=== PATIENT | female | born 1955 | race Caucasian/White ===

== ENCOUNTER → 2018-05-17 14:26 | Outpatient (CLI) | payer OTHER, SELFPAY ==
--- NOTE | 2018-05-17 14:31 | BI_ITS ---
MAMMOGRAPHY - BILATERAL SCREENING REASON FOR EXAM: Female, 63 years old. Routine annual screening examination. PERTINENT HISTORY: Mother with breast cancer. TECHNIQUE: Digital bilateral breast roney (3D mammographic acquisition) in the CC and MLO projections. 2-D mediolateral oblique (MLO) and craniocaudad (CC) views of both breasts were obtained. CAD: Full Field Digital Mammography with Computer Added Detection was performed. COMPARISON: Comparison is made with prior outside examination dated 2016. FINDINGS: Breast Composition: The breasts are almost entirely fatty. There are no dominant masses or suspicious calcifications. No other significant abnormalities are identified. There has been no significant change since the prior study. BI/SCREENING MAMM (CAD), BILAT IMPRESSION: Stable bilateral screening mammogram. Yearly follow-up mammogram recommended. (A) ASSESSMENT CATEGORY: BIRADS Category 1: Negative. A letter regarding these results will be sent to the patient by the facility within 30 days. Approximately 10% of breast cancers are not detected by mammography. A normal mammogram should not delay biopsy of a clinically suspicious abnormality. [id number] Electronically Signed: Eleazar Owens, at 9:11 EST , Service support ,
== END ==
PROVIDERS: Family Provider Internal Medicine; PCP Internal Medicine; Referring Provider Nurse Practitioner Women's Health; Visit Provider Nurse Practitioner Women's Health
DX: Z12.31 Encounter for screening mammogram for malignant neoplasm of breast (principal); Z80.3 Family history of malignant neoplasm of breast
CPT/HCPCS: 77063; 77067

== ENCOUNTER 2018-06-04 11:53 | Inpatient (IN) | payer MEDICARE, SELFPAY ==
[2018-06-04] VITALS (14 sets, daily range): BP systolic 128–165; BP diastolic 57–75; PULSE 51–74; RESP 14–54; TEMP 36.3–37.6; O2SAT 83–100; BMI 51.5; BMI 51.6
--- NOTE | 2018-06-04 11:59 | EKG12_ITS ---
Test Reason : SOB Blood Pressure : / mmHG Vent. Rate : 054 BPM Atrial Rate : 054 BPM P-R Int : 144 ms QRS Dur : 114 ms QT Int : 480 ms P-R-T Axes : -14 034 053 degrees QTc Int : 455 ms Sinus bradycardia Incomplete right bundle branch block Nonspecific ST and T wave abnormality Abnormal ECG Confirmed by KIRK FALK, JEREMY ([id number]), multimedia editor SHERRY ROGER ([id number]) on 06/05/2018 8:22:12 AM Referred By: LEXIE Confirmed By:JEREMY BRADLEY MD
--- NOTE | 2018-06-04 12:01 | ED.VIS.GEN ---
History of Present Illness Chief Complaint: Shortness of Breath Detail of Chief Complaint: Gradually worsening Informant: Patient, Significant Other Onset: Month(s) Context: Gradual Onset Timing: Continuous Quality: Shortness of breath at rest and increased shortness of breath with activity Location: Not applicable Current Severity: Mild Maximum Severity: Severe Worsened by: Exertion Relieved by: Oxygen Associated Symptoms: Nasal congestion and cough Narrative: Patient is a 63-year-old woman who presents with increased shortness of breath over the past 2-3 months. She states the shortness of breath has gotten worse over the past 1-2 weeks. He does report mild nasal congestion and cough which is essentially nonproductive. She denies documented fever. She states she feels warm at times. She denies headache, visual, ocular auditory symptoms. She denies chest pain. She denies orthopnea PND. She states she is compliant with her CPAP machine at night. She denies GI symptoms. She denies leg pain or swelling. She has no history of PE or DVT and has no risk factors. She went to the urgent care and was sent to the emergency department because her pulse ox was in the 70s on room air. Patient refused ambulance transport. - Past Medical History (1) Obstructive sleep apnea Status: Chronic (2) Controlled diabetes mellitus type II without complication Status: Chronic (3) Hypertension Status: Chronic (4) Obesity Status: Chronic (5) Tobacco use disorder Status: Chronic Past Medical History - Allergies and Home Meds Allergies/Adverse Reactions: Allergies haloperidol [From Haldol] Allergy (Verified 06/04/18 11:53) Rash haloperidol lactate [From Haldol] Allergy (Verified 06/04/18 11:53) Rash Primary Care Physician: Toby Aleman MD [Primary Care Provider] - Prior records reviewed: Yes Surgical History: noncontributory Lives: Spouse/ Significant Other Smoking Status: Former smoker Alcohol: None Review of Systems General: Reports: Fever, Subjective, Sweats. Denies: Chills, Malaise Eyes: Denies: Visual changes - bilaterally, Blurred Vision - bilaterally, Diplopia ENT: Denies: Bilateral ear pain, Rhinorrhea, Sore throat Cardiovascular: Denies: Chest pain, Palpitations Respiratory: Reports: Dyspnea, Cough, Sputum - Scant production, Dyspnea on exertion, Orthopnea. Denies: Paroxysmal nocturnal dyspnea Gastrointestinal: Denies: Abdominal pain, Nausea, Vomiting, Diarrhea, Melena, Hematochezia Genitourinary: Denies: Dysuria, Hematuria, Frequency Musculoskeletal: Denies: Myalgias, Arthralgias Skin: Denies: Rash, Wounds Neurological: Reports: Headache. Denies: Weakness, Parasthesia Endocrine: Denies: Polyuria, Polydipsia Allergy: Denies: Uticaria, Swelling of the mouth Physical Exam Vital Signs/Narrative: Vital Signs Temp BP Pulse Ox 06/04/18 11:54 99.6 F H 165/57 H 90 General: Well nourished, Well developed, Obese, No Acute Distress Head: Normocephalic, Atraumatic Eyes: Perrl, EOMI. Negative for: Pale conjunctiva, Scleral icterus ENT: Moist mucous membranes, No rhinorrhea, TM's clear Neck: Supple, Nontender, No lymphadenopathy, No JVD Cardiovascular: Regular rate, Regular rhythm, No murmurs, Normal S1, Normal S2, - - Heart tones are distant secondary to body habitus Respiratory: CTA bilaterally, Chest nontender, Diminished - Distant breath sounds suspect secondary to body habitus. Patient is tachypnic. Abdomen: Soft, Nontender, Nondistended, Normal bowel sounds, No masses Rectal: Deferred Back: Nontender, Normal Inspection Extremities: Nontender, Edema - Plus minus pitting. Negative for: Calf Tenderness Skin: Normal color, No rash Neurological: Alert, Oriented x3, Cranial nerves II-XII grossly intact, Normal Strength, Normal Sensation Psychological: Normal affect, Normal Mood Diagnostic/Tx/Re-eval Chest X-Ray - ED: 2 View, Normal, Heart, Bony Structures, - - Bilateral interstitial changes noted uncertain whether this represents a viral/atypical pneumonia versus CHF. Impressions Chest X-Ray 06/04/18 12:20 IMPRESSION: Pulmonary edema or bilateral pneumonia. Electronically Signed: Karena Carine, at 12:38 EDT Tel , Service support , 06/04/18 12:20 Chest PA and Lateral [RAD] Stat 06/04/18 13:06 CT Chest [Chest without Contrast] [CT] Stat Laboratory Results 06/04/18 06/04/18 06/04/18 12:05 12:05 12:05 WBC 10.8 RBC 3.15 L Hgb 9.8 L Hct 32.0 L MCV 101.6 H MCH 31.1 MCHC 30.6 L RDW 15.1 H RDW Differential 55.3 H Plt Count 284 MPV 9.0 Immature Gran % (Auto) 0.200 Neut % (Auto) 77.7 H Lymph % (Auto) 11.9 L [place] % (Auto) 6.9 Eos % (Auto) 2.7 Baso % (Auto) 0.6 Absolute Neuts (auto) 8.4 H Absolute Lymphs (auto) 1.29 Total Counted Not Reportable Specimen Type Sample Site pH Bicarbonate Actual POC Total CO2 Base Excess O2 Saturation ABG pCO2 ABG pO2 O2 Delivery Device Liter Flow Blood Gas Notified Whom Blood Gas Notified Time Sodium 139 Potassium 5.0 Chloride 109 H Carbon Dioxide 22.0 Anion Gap 8 BUN 34 H Creatinine 2.11 H Estim Creat Clear Calc 24.24 Est GFR (MDRD) Af Amer 30 L Est GFR (MDRD) Non-Af 25 L BUN/Creatinine Ratio 16.1 Glucose 137 H Lactic Acid 2.1 H Calcium 8.7 Troponin I < 0.015 06/04/18 12:23 WBC RBC Hgb Hct MCV MCH MCHC RDW RDW Differential Plt Count MPV Immature Gran % (Auto) Neut % (Auto) Lymph % (Auto) [place] % (Auto) Eos % (Auto) Baso % (Auto) Absolute Neuts (auto) Absolute Lymphs (auto) Total Counted Specimen Type ART Sample Site L Radial pH 7.33 L Bicarbonate Actual 18.8 L POC Total CO2 20 Base Excess -7 L O2 Saturation 92 L ABG pCO2 36.0 ABG pO2 67 L O2 Delivery Device Nasal Can Liter Flow 3.0 Blood Gas Notified Whom ED MD Blood Gas Notified Time 1222 Sodium Potassium Chloride Carbon Dioxide Anion Gap BUN Creatinine Estim Creat Clear Calc Est GFR (MDRD) Af Amer Est GFR (MDRD) Non-Af BUN/Creatinine Ratio Glucose Lactic Acid Calcium Troponin I CT reveals bilateral multilobar pneumonia. Blood cultures were ordered since lactate is elevated 2.1. Patient was started on Rocephin and azithromycin. - Rhythm Strip Rhythm Strip: Sinus Rhythm Rate: 59 Ectopy: None - EKG Initial EKG Interpretation: Sinus Bradycardia - Ventricular rate 54 with an incomplete right bundle branch block and nonspecific ST-T wave changes. QRS duration is 114 ms. MA interval is normal and QT interval is slightly prolonged. - Medical Decision Making Need to evaluate cardiac, pulmonary cause for 2-3 months of dyspnea. Exacerbation may be secondary to recent upper respiratory infection. Chest x-ray was obtained to evaluate for infiltrate. EKG to evaluate for ischemia. CBC to assess for white count and evaluate for anemia. Electric panel was obtained to assess CO2, anion gap and renal function. With symptoms for months doubt pulmonary embolus. Since she is hypoxic and has history of obstructive sleep apnea requiring 4-5 L to maintain 90% saturation and ABG was obtained to assess CO2 and acid base status. Reviewed laboratory tests and radiology interpretation of x-ray. Will obtain CT of the chest without contrast to determine if this represents pneumonia versus CHF. Patient will require admission. And, suspect lactic acidosis is secondary to hypoxia. If CT reveals pneumonia will obtain blood cultures and treat with IV antibiotics, otherwise, will treat for CHF. - Critical Care Time Critical care time (excluding procedures): 30-74 minutes, Discussing w/Patient &/or Family/[employer] Protection Maintainer, Discussing w/Consultants, Arranging Admission or Transfer - 32 minutes ED Disposition - Plan for ED Patient: Disposition: [facility] Care [facility] Diagnosis: Respiratory failure with hypoxia, Severe sepsis, Bilateral multilobar pneumonia, Controlled diabetes mellitus type II without complication, Obstructive sleep apnea, Hypertension, Obesity, Tobacco use disorder Referrals: Toby Aleman MD [Primary Care Provider] -
--- NOTE | 2018-06-04 12:05 | ED.DCSUM_ITS ---
History of Present Illness Chief Complaint: Shortness of Breath Detail of Chief Complaint: Gradually worsening Informant: Patient, Significant Other Onset: Month(s) Context: Gradual Onset Timing: Continuous Quality: Shortness of breath at rest and increased shortness of breath with activity Location: Not applicable Current Severity: Mild Maximum Severity: Severe Worsened by: Exertion Relieved by: Oxygen Associated Symptoms: Nasal congestion and cough Narrative: Patient is a 63-year-old woman who presents with increased shortness of breath over the past 2-3 months. She states the shortness of breath has gotten worse over the past 1-2 weeks. He does report mild nasal congestion and cough which is essentially nonproductive. She denies documented fever. She states she feels warm at times. She denies headache, visual, ocular auditory symptoms. She denies chest pain. She denies orthopnea PND. She states she is compliant with her CPAP machine at night. She denies GI symptoms. She denies leg pain or swelling. She has no history of PE or DVT and has no risk factors. She went to the urgent care and was sent to the emergency department because her pulse ox was in the 70s on room air. Patient refused ambulance transport. - Past Medical History (1) Obstructive sleep apnea Status: Chronic (2) Controlled diabetes mellitus type II without complication Status: Chronic (3) Hypertension Status: Chronic (4) Obesity Status: Chronic (5) Tobacco use disorder Status: Chronic Past Medical History - Allergies and Home Meds Allergies/Adverse Reactions: Allergies haloperidol [From Haldol] Allergy (Verified 06/04/18 11:53) Rash haloperidol lactate [From Haldol] Allergy (Verified 06/04/18 11:53) Rash Primary Care Physician: Toby Aleman MD [Primary Care Provider] - Prior records reviewed: Yes Surgical History: noncontributory Lives: Spouse/ Significant Other Smoking Status: Former smoker Alcohol: None Review of Systems General: Reports: Fever, Subjective, Sweats. Denies: Chills, Malaise Eyes: Denies: Visual changes - bilaterally, Blurred Vision - bilaterally, Diplopia ENT: Denies: Bilateral ear pain, Rhinorrhea, Sore throat Cardiovascular: Denies: Chest pain, Palpitations Respiratory: Reports: Dyspnea, Cough, Sputum - Scant production, Dyspnea on exertion, Orthopnea. Denies: Paroxysmal nocturnal dyspnea Gastrointestinal: Denies: Abdominal pain, Nausea, Vomiting, Diarrhea, Melena, Hematochezia Genitourinary: Denies: Dysuria, Hematuria, Frequency Musculoskeletal: Denies: Myalgias, Arthralgias Skin: Denies: Rash, Wounds Neurological: Reports: Headache. Denies: Weakness, Parasthesia Endocrine: Denies: Polyuria, Polydipsia Allergy: Denies: Uticaria, Swelling of the mouth Physical Exam Vital Signs/Narrative: Vital Signs Temp BP Pulse Ox 06/04/18 11:54 99.6 F H 165/57 H 90 General: Well nourished, Well developed, Obese, No Acute Distress Head: Normocephalic, Atraumatic Eyes: Perrl, EOMI. Negative for: Pale conjunctiva, Scleral icterus ENT: Moist mucous membranes, No rhinorrhea, TM's clear Neck: Supple, Nontender, No lymphadenopathy, No JVD Cardiovascular: Regular rate, Regular rhythm, No murmurs, Normal S1, Normal S2, - - Heart tones are distant secondary to body habitus Respiratory: CTA bilaterally, Chest nontender, Diminished - Distant breath sounds suspect secondary to body habitus. Patient is tachypnic. Abdomen: Soft, Nontender, Nondistended, Normal bowel sounds, No masses Rectal: Deferred Back: Nontender, Normal Inspection Extremities: Nontender, Edema - Plus minus pitting. Negative for: Calf Tenderness Skin: Normal color, No rash Neurological: Alert, Oriented x3, Cranial nerves II-XII grossly intact, Normal Strength, Normal Sensation Psychological: Normal affect, Normal Mood Diagnostic/Tx/Re-eval Chest X-Ray - ED: 2 View, Normal, Heart, Bony Structures, - - Bilateral interstitial changes noted uncertain whether this represents a viral/atypical pneumonia versus CHF. Impressions Chest X-Ray 06/04/18 12:20 IMPRESSION: Pulmonary edema or bilateral pneumonia. Electronically Signed: Karena Carine, at 12:38 EDT Tel , Service support , 06/04/18 12:20 Chest PA and Lateral [RAD] Stat 06/04/18 13:06 CT Chest [Chest without Contrast] [CT] Stat Laboratory Results 06/04/18 06/04/18 06/04/18 12:05 12:05 12:05 WBC 10.8 RBC 3.15 L Hgb 9.8 L Hct 32.0 L MCV 101.6 H MCH 31.1 MCHC 30.6 L RDW 15.1 H RDW Differential 55.3 H Plt Count 284 MPV 9.0 Immature Gran % (Auto) 0.200 Neut % (Auto) 77.7 H Lymph % (Auto) 11.9 L [place] % (Auto) 6.9 Eos % (Auto) 2.7 Baso % (Auto) 0.6 Absolute Neuts (auto) 8.4 H Absolute Lymphs (auto) 1.29 Total Counted Not Reportable Specimen Type Sample Site pH Bicarbonate Actual POC Total CO2 Base Excess O2 Saturation ABG pCO2 ABG pO2 O2 Delivery Device Liter Flow Blood Gas Notified Whom Blood Gas Notified Time Sodium 139 Potassium 5.0 Chloride 109 H Carbon Dioxide 22.0 Anion Gap 8 BUN 34 H Creatinine 2.11 H Estim Creat Clear Calc 24.24 Est GFR (MDRD) Af Amer 30 L Est GFR (MDRD) Non-Af 25 L BUN/Creatinine Ratio 16.1 Glucose 137 H Lactic Acid 2.1 H Calcium 8.7 Troponin I < 0.015 06/04/18 12:23 WBC RBC Hgb Hct MCV MCH MCHC RDW RDW Differential Plt Count MPV Immature Gran % (Auto) Neut % (Auto) Lymph % (Auto) [place] % (Auto) Eos % (Auto) Baso % (Auto) Absolute Neuts (auto) Absolute Lymphs (auto) Total Counted Specimen Type ART Sample Site L Radial pH 7.33 L Bicarbonate Actual 18.8 L POC Total CO2 20 Base Excess -7 L O2 Saturation 92 L ABG pCO2 36.0 ABG pO2 67 L O2 Delivery Device Nasal Can Liter Flow 3.0 Blood Gas Notified Whom ED MD Blood Gas Notified Time 1222 Sodium Potassium Chloride Carbon Dioxide Anion Gap BUN Creatinine Estim Creat Clear Calc Est GFR (MDRD) Af Amer Est GFR (MDRD) Non-Af BUN/Creatinine Ratio Glucose Lactic Acid Calcium Troponin I CT reveals bilateral multilobar pneumonia. Blood cultures were ordered since lactate is elevated 2.1. Patient was started on Rocephin and azithromycin. - Rhythm Strip Rhythm Strip: Sinus Rhythm Rate: 59 Ectopy: None - EKG Initial EKG Interpretation: Sinus Bradycardia - Ventricular rate 54 with an incomplete right bundle branch block and nonspecific ST-T wave changes. QRS duration is 114 ms. TX interval is normal and QT interval is slightly prolonged. - Medical Decision Making Need to evaluate cardiac, pulmonary cause for 2-3 months of dyspnea. Exacerbation may be secondary to recent upper respiratory infection. Chest x- ray was obtained to evaluate for infiltrate. EKG to evaluate for ischemia. CBC to assess for white count and evaluate for anemia. Electric panel was obtained to assess CO2, anion gap and renal function. With symptoms for months doubt pulmonary embolus. Since she is hypoxic and has history of obstructive sleep apnea requiring 4-5 L to maintain 90% saturation and ABG was obtained to assess CO2 and acid base status. Reviewed laboratory tests and radiology interpretation of x-ray. Will obtain CT of the chest without contrast to determine if this represents pneumonia versus CHF. Patient will require admission. And, suspect lactic acidosis is secondary to hypoxia. If CT reveals pneumonia will obtain blood cultures and treat with IV antibiotics, otherwise, will treat for CHF. - Critical Care Time Critical care time (excluding procedures): 30-74 minutes, Discussing w/Patient &/or Family/Rn Nicu, Discussing w/Consultants, Arranging Admission or Transfer - 32 minutes ED Disposition - Plan for ED Patient: Disposition: Acute Care [facility] Diagnosis: Respiratory failure with hypoxia, Severe sepsis, Bilateral multilobar pneumonia, Controlled diabetes mellitus type II without complication, Obstructive sleep apnea, Hypertension, Obesity, Tobacco use disorder Referrals: Toby Aleman MD [Primary Care Provider] -
--- NOTE | 2018-06-04 12:20 | RAD_ITS ---
STUDY: X-RAY CHEST REASON FOR EXAM: Female, 63 years old. Dyspnea TECHNIQUE: Frontal and lateral views of the chest. COMPARISON: None. FINDINGS: Increased interstitial markings in the perihilar region and lung bases suggesting bilateral pulmonary edema or bilateral pneumonia. There is no demonstrated pleural abnormality. Normal size heart. Normal mediastinum and carolyn. Normal visualized pulmonary arteries. Normal visualized aortic arch and descending thoracic aorta. Normal visualized thoracic spine. There is degenerative osteoarthritis of the bilateral shoulders. There is no demonstrated abnormality of the visualized soft tissue structures of the upper abdomen. RAD/Chest PA and Lateral IMPRESSION: Pulmonary edema or bilateral pneumonia. Electronically Signed: Karena Hawk, at 12:38 EDT Tel , Service support ,
[2018-06-04 12:30] LABS: Base Excess -7 mmol/L (-2 to +2); Bicarbonate 18.8 mmol/L (22-26); Blood Gas Specimen Type ART; O2 Delivery Device Nasal Can; PO2 67 mmHG (75-100); SITE L Radial; SO2 92 % (95-99); Time Given 1222; Total Carbon Dioxide 20 mmol/L; pH 7.33 (7.35-7.45)
[2018-06-04 12:30] LABS: Absolute Lymphocyte Count 1.29 X10^3/ul (0.83-4.51); Absolute Neutrophil Count 8.4 X10^3/uL (2.0-7.7); Basophil# 0.06 X10^3/uL; Basophil% 0.6 % (0-1); Eosinophil# 0.29 X10^3/uL; Eosinophils% 2.7 % (0-5); Hemoglobin 9.8 g/dl (12.0-15.0); Lymphocyte # 1.29 X10^3/ul (4.0); Lymphocyte % 11.9 % (19-41); Mean Corp Hgb Conc 30.6 g/gl (32-36); Mean Corpuscular Hgb 31.1 pg (27.0-32.0); Mean Corpuscular Volume 101.6 fL (81-99); Monocyte# 0.75 X10^3/uL; Monocyte% 6.9 % (0-10); Neutrophil # 8.39 X10^3/uL (2.7-7.7); Neutrophil % 77.7 % (47-70); Platelet Count 284 K/mm3 (150-450); RBC Distribution Width CV 15.1 % (11.6-14.6); RBC Distribution Width SD 55.3 fl (35.1-43.9); Red Blood Count 3.15 M/mm3 (4.2-5.4); White Blood Count 10.8 K/mm3 (4.4-11.0)
[2018-06-04 12:35] LABS: POSITIVE COUNT NO; POSITIVE DIFFERENTIAL NO; POSITIVE MORPHOLOGY NO
[2018-06-04 12:41] LABS: Anion Gap 8 (5-15); BUN 34 mg/dL (7-18); BUN/Creat Ratio 16.1 RATIO (10-20); Calcium,Total 8.7 mg/dL (8.5-10.1); Chloride 109 mmol/L (98-107); Creatinine, Serum 2.11 mg/dL (0.55-1.02); EST Glomerular Filtration Rate 25 mL/min (>60); Est Glom Filt Rate - Afr Amer 30 mL/min (>60); Estimated Creatinine Clearance 24.24 ml/min; Glucose 137 mg/dL (74-106); Sodium Level 139 mmol/L (136-145)
[2018-06-04 12:58] LABS: Lactic Acid 2.1 mmol/L (0.4-2.0)
--- NOTE | 2018-06-04 13:00 | ED.RN ---
LACTIC 2.[address] THE LAB. DR OWEN AWARE
--- NOTE | 2018-06-04 13:06 | CT_ITS ---
STUDY: CT CHEST WITHOUT CONTRAST REASON FOR EXAM: Female, 63 years old. Hypoxia RADIATION DOSAGE (If Supplied By Facility): CTDIvol = ( 20.72 ) mGy, DLP = ( 586.75 ) mGycm TECHNIQUE: Transaxial imaging was performed without the administration of intravenous contrast material. Individualized dose optimization techniques were used for this CT. COMPARISON: 02/05/2015 FINDINGS: Reticular interstitial opacities are seen in both lungs more prominent in lung bases are stable compared to study from 2014 suggesting chronic interstitial lung disease. There are superimposed patchy groundglass opacities in both lungs, most likely represent bilateral pneumonia. There is no demonstrated pleural abnormality. Normal heart and pericardium. There are multiple enlarged lymph nodes within the mediastinum, which are compatible with reactive lymph hyperplasia. Normal hilar regions. Normal unenhanced pulmonary arteries. Normal aorta arch and descending thoracic aorta. There are multi-level degenerative changes of the thoracic spine. There is no demonstrated abnormality of the visualized upper abdomen. CT/Chest without Contrast IMPRESSION: Chronic interstitial lung disease with superimposed bilateral patchy pneumonia. Electronically Signed: Karena Hawk, at 14:44 EDT Tel , Service support ,
[2018-06-04 13:42] LABS: BNP,B-Type NATRIURETIC PEPTIDE 213.5 pg/mL (0-100)
--- NOTE | 2018-06-04 14:48 | ED.RN ---
physician advised of BS @ 70 pt gived 2 orange juice drinks, per physician.
[2018-06-04 14:50] LABS: Bedside Glucose 70 mg/dL (70-110)
[2018-06-04] MEDS: Ceftriaxone 1 GM/50 ML BAG IV (15:17)
--- NOTE | 2018-06-04 16:10 | HP.PCM_ITS ---
<Nora Samuel - Last Filed: 06/04/18 16:25> Problem List (1) Obstructive sleep apnea Status: Chronic (2) Respiratory failure with hypoxia Status: Chronic (3) Severe sepsis Status: Acute (4) Tobacco use disorder Status: Resolved (5) Obesity Status: Chronic Qualifiers: Body mass index: BMI 50.0-59.9 (6) Hypertension Status: Chronic (7) Depression Status: Chronic (8) Controlled diabetes mellitus type II without complication Status: Chronic (9) Cocaine dependence, episodic Status: Resolved (10) Pulmonary fibrosis Status: Chronic History of Present Illness Date of Admission: 06/04/18 Chief Complaint: Worsening shortness of breath. The patient is a 63 year old F who presents emergency room due to worsening shortness of breath. Patient states she had a respiratory virus in the middle of April which initially caused her shortness of breath. However, the last 2 weeks she reports her shortness of breath is worse and she is struggling to do activities of daily living due to shortness of breath. She denies fever, ch ills. Intermittent productive cough. Denies chest pain. Denies noticeable swelling. She does report her weight on admission is 10 pounds greater than at her primary care physician 1 week ago. She has a past medical history of pulmonary fibrosis, obstructive sleep apnea and chronic hypoxic respiratory failure wearing supplemental oxygen at night only. She follows with Dr. Olivia, [facility] pulmonary medicine. Her other past medical history includes hypertension, hyperlipidemia, depression, GERD, type 2 diabetes mellitus, morbid obesity. She is a former smoker and reports she quit 8 years ago. Past Medical History Past Medical History (Chronic Problems): Chronic Problems Obstructive sleep apnea (Chronic) Respiratory failure with hypoxia (Chronic) Pulmonary fibrosis (Chronic) Obesity (Chronic) Hypertension (Chronic) Depression (Chronic) Controlled diabetes mellitus type II without complication (Chronic) Allergies haloperidol [From Haldol] Allergy (Verified 06/04/18 11:53) Rash haloperidol lactate [From Haldol] Allergy (Verified 06/04/18 11:53) Rash Home Medications: Ambulatory Orders Medication Instructions Recorded Citalopram [Celexa] 40 mg PO DAILY 02/05/15 Amlodipine Besylate [Norvasc] 10 mg PO DAILY 06/04/18 Atorvastatin Calcium [Lipitor] 40 mg PO QHS 06/04/18 Cyclopentolate HCl 2 ml OP QHS 06/04/18 Gabapentin [Neurontin] 300 mg PO BID 06/04/18 Insulin NPH Human Isophane 30 unit SQ BID 06/04/18 [Novolin N] Insulin Regular, Human [Novolin R] 30 unit SQ TIDCM 06/04/18 Losartan Potassium 100 mg PO DAILY 06/04/18 Montelukast [Singulair] 10 mg PO QHS 06/04/18 Nintedanib Esylate [Ofev] 150 mg PO BIDCM 06/04/18 Pantoprazole Sodium [Protonix] 20 mg PO DAILY 06/04/18 Prednisolone Acetate 10 ml OP DAILY 06/04/18 Surgical History: cholecystectomy, tonsillectomy Psychiatric History: Depression [employer] History: No pertinent [employer] history Lives: Alone Smoking Status: Former smoker Alcohol: None Drugs: None - *Family History Maternal History Items: Diabetes, Heart Disease Paternal History Items: - - from prostate cancer Review of Systems Constitutional: Reports: Weight Change - + 10 lbs. Denies: Chills, Fever HEENT: Denies: Head Aches, Sinus Congestion, Sinus Drainage, Sore Throat Cardiovascular: Denies: Chest Pain, Edema, Palpitations, Syncope Respiratory: Reports: Cough, Shortness of Breath, Sputum production Gastrointestinal: Denies: Abdominal Pain, Nausea, Vomiting Genitourinary: Denies: Dysuria Musculoskeletal: Denies: Joint Pain, Joint Tenderness Skin: Denies: Rash, Wounds Neurological: Denies: Numbness, Tingling, Focal weakness Psychiatric: Reports: Depression Hematologic/ Lymphatic: Denies: Easy Bruising, Easy Bleeding VTE Information - Inpt Only VTE Present on Admission: No VTE Mechan Device Prophylaxis: None VTE Pharm Prophylaxis ordered?: Yes Patient Problems: Active and Suspected Problems Severe sepsis (Acute) - Physical Exam General: Alert, Oriented x3, Cooperative, No apparent distress HEENT: Atraumatic, PERRLA, EOMI, Normocephalic Neck: Supple, No JVD, Negative Carotid Bruits Lungs: Clear to auscultation, Diminished Cardiovascular: Regular rate, Regular Rhythm, Normal S1, Normal S2, No murmurs Abdomen: Bowel Sounds Present, Soft, Non Tender, Non-Distended, Obese Extremities: No clubbing, No cyanosis, No edema, Capillary Refill Less than 3 Seconds Skin: No rashes, No breakdown Musculoskeletal: No Tenderness to Palpation of Joints or Extremities Neurological: Cranial nerves II-XII grossly intact, Neuro grossly intact Psych/Mental Status: Normal Affect, Appropriate Vital Signs Temp Pulse Resp BP Pulse Ox 98.8 F 51 L 18 131/75 H 100 06/04/18 15:17 06/04/18 15:17 06/04/18 15:17 06/04/18 15:17 06/04/18 15:17 Oxygen Flow Rate (L/min) 3 Oxygen Delivery Method Nasal Cannula Weight: 309 lb 15.519 oz Body Mass Index (BMI) 51.5 Finger Stick Blood Glucose 70 Laboratory Tests Past 24 Hrs 06/04/18 06/04/18 06/04/18 12:05 12:05 12:05 WBC 10.8 RBC 3.15 L Hgb 9.8 L Hct 32.0 L MCV 101.6 H MCH 31.1 MCHC 30.6 L RDW 15.1 H RDW Differential 55.3 H Plt Count 284 MPV 9.0 Immature Gran % (Auto) 0.200 Neut % (Auto) 77.7 H Lymph % (Auto) 11.9 L Sharp % (Auto) 6.9 Eos % (Auto) 2.7 Baso % (Auto) 0.6 Absolute Neuts (auto) 8.4 H Absolute Lymphs (auto) 1.29 Total Counted Not Reportable Specimen Type Sample Site pH Bicarbonate Actual POC Total CO2 Base Excess O2 Saturation ABG pCO2 ABG pO2 O2 Delivery Device Liter Flow Blood Gas Notified Whom Blood Gas Notified Time Sodium 139 Potassium 5.0 Chloride 109 H Carbon Dioxide 22.0 Anion Gap 8 BUN 34 H Creatinine 2.11 H Estim Creat Clear Calc 24.24 Est GFR (MDRD) Af Amer 30 L Est GFR (MDRD) Non-Af 25 L BUN/Creatinine Ratio 16.1 Glucose 137 H Lactic Acid 2.1 H Calcium 8.7 Troponin I < 0.015 B-Natriuretic Peptide 06/04/18 06/04/18 12:05 12:23 WBC RBC Hgb Hct MCV MCH MCHC RDW RDW Differential Plt Count MPV Immature Gran % (Auto) Neut % (Auto) Lymph % (Auto) Sharp % (Auto) Eos % (Auto) Baso % (Auto) Absolute Neuts (auto) Absolute Lymphs (auto) Total Counted Specimen Type ART Sample Site L Radial pH 7.33 L Bicarbonate Actual 18.8 L POC Total CO2 20 Base Excess -7 L O2 Saturation 92 L ABG pCO2 36.0 ABG pO2 67 L O2 Delivery Device Nasal Can Liter Flow 3.0 Blood Gas Notified Whom ED Blood Gas Notified Time 1222 Sodium Potassium Chloride Carbon Dioxide Anion Gap BUN Creatinine Estim Creat Clear Calc Est GFR (MDRD) Af Amer Est GFR (MDRD) Non-Af BUN/Creatinine Ratio Glucose Lactic Acid Calcium Troponin I B-Natriuretic Peptide 213.5 H POC Glucose 06/04/18 14:44 POC Glucose 70 Assessment/Plan All Active Problems Severe sepsis (Acute) Tobacco use disorder (Resolved) Cocaine dependence, episodic (Resolved) 1. Acute on chronic hypoxic respiratory failure secondary to bilateral community-acquired pneumonia and possible mild CHF-complicated by underlying pulmonary fibrosis and obstructive sleep apnea. Continue supplement oxygen to maintain O2 at or above 90%. Patient chronically wears oxygen at night. Continue BiPAP nightly. Wean oxygen as tolerated. Walking pulse ox prior to discharge. Follows with Dr. Olivia, [facility] pulmonary medicine. 2. Acute bilateral community acquired pneumonia-chest CT with chronic interstitial lung disease with superimposed bilateral patchy pneumonia. Afebrile. No leukocytosis. IV azithromycin and IV Rocephin. Albuterol and DuoNeb aerosols. Mucinex 12 mg p.o. twice daily. Urine for strep and Legionella. Supplemental oxygen as noted above. Send sputum for culture. 3. Possible mild CHF? Patient reports ongoing shortness of breath. Obtain echocardiogram. BNP mildly elevated at admission. 4. Chronic kidney disease, suspected stage III-appears at baseline. Trend BMP. 5. Hypertension-stable, continue home amlodipine, losartan regimen. 6. Hyperlipidemia-continue statin. 7. Depression-continue home citalopram regimen. 8. GERD-continue home PPI regimen. 9. Type 2 diabetes [id number] AC at bedtime. Continue home insulin regimen. Check hemoglobin A1c. 10. Morbid obesity-encouraged diet and lifestyle modifications. Nutrition consult. 11. Former smoker-quit 8 years ago. Encouraged continued cessation. DVT prophylaxis-Lovenox subcu This patient was seen by SAMIR Barnes under the supervision of Dr. Hart. <Yahir Hart F - Last Filed: 06/04/18 18:42> History of Present Illness The patient is a 63 year old F [] Past Medical History Allergies haloperidol [From Haldol] Allergy (Verified 06/04/18 11:53) Rash haloperidol lactate [From Haldol] Allergy (Verified 06/04/18 11:53) Rash - Physical Exam Vital Signs Temp Pulse Resp BP Pulse Ox 97.4 F L 51 L 16 151/62 H 93 06/04/18 16:30 06/04/18 16:30 06/04/18 16:30 06/04/18 16:30 06/04/18 16:30 Oxygen Flow Rate (L/min) 4 Oxygen Delivery Method Nasal Cannula Weight: 304 lb 3.806 oz Body Mass Index (BMI) 51.5 Finger Stick Blood Glucose 70 Intake and Output for Last 24 Hours 06/02/18 06/03/18 06/04/18 23:59 23:59 23:59 Intake Total 240 / 240 Balance 240 / 240 Laboratory Tests Past 24 Hrs 06/04/18 06/04/18 06/04/18 12:05 12:05 12:05 WBC 10.8 RBC 3.15 L Hgb 9.8 L Hct 32.0 L MCV 101.6 H MCH 31.1 MCHC 30.6 L RDW 15.1 H RDW Differential 55.3 H Plt Count 284 MPV 9.0 Immature Gran % (Auto) 0.200 Neut % (Auto) 77.7 H Lymph % (Auto) 11.9 L Sharp % (Auto) 6.9 Eos % (Auto) 2.7 Baso % (Auto) 0.6 Absolute Neuts (auto) 8.4 H Absolute Lymphs (auto) 1.29 Total Counted Not Reportable Specimen Type Sample Site pH Bicarbonate Actual POC Total CO2 Base Excess O2 Saturation ABG pCO2 ABG pO2 O2 Delivery Device Liter Flow Blood Gas Notified Whom Blood Gas Notified Time Sodium 139 Potassium 5.0 Chloride 109 H Carbon Dioxide 22.0 Anion Gap 8 BUN 34 H Creatinine 2.11 H Estim Creat Clear Calc 24.24 Est GFR (MDRD) Af Amer 30 L Est GFR (MDRD) Non-Af 25 L BUN/Creatinine Ratio 16.1 Glucose 137 H Hemoglobin A1c Lactic Acid 2.1 H Calcium 8.7 Troponin I < 0.015 B-Natriuretic Peptide 06/04/18 06/04/18 06/04/18 12:05 12:05 12:23 WBC RBC Hgb Hct MCV MCH MCHC RDW RDW Differential Plt Count MPV Immature Gran % (Auto) Neut % (Auto) Lymph % (Auto) Sharp % (Auto) Eos % (Auto) Baso % (Auto) Absolute Neuts (auto) Absolute Lymphs (auto) Total Counted Specimen Type ART Sample Site L Radial pH 7.33 L Bicarbonate Actual 18.8 L POC Total CO2 20 Base Excess -7 L O2 Saturation 92 L ABG pCO2 36.0 ABG pO2 67 L O2 Delivery Device Nasal Can Liter Flow 3.0 Blood Gas Notified Whom ED MD Blood Gas Notified Time 1222 Sodium Potassium Chloride Carbon Dioxide Anion Gap BUN Creatinine Estim Creat Clear Calc Est GFR (MDRD) Af Amer Est GFR (MDRD) Non-Af BUN/Creatinine Ratio Glucose Hemoglobin A1c Pending Lactic Acid Calcium Troponin I B-Natriuretic Peptide 213.5 H 06/04/18 16:28 WBC RBC Hgb Hct MCV MCH MCHC RDW RDW Differential Plt Count MPV Immature Gran % (Auto) Neut % (Auto) Lymph % (Auto) Sharp % (Auto) Eos % (Auto) Baso % (Auto) Absolute Neuts (auto) Absolute Lymphs (auto) Total Counted Specimen Type Sample Site pH Bicarbonate Actual POC Total CO2 Base Excess O2 Saturation ABG pCO2 ABG pO2 O2 Delivery Device Liter Flow Blood Gas Notified Whom Blood Gas Notified Time Sodium Potassium Chloride Carbon Dioxide Anion Gap BUN Creatinine Estim Creat Clear Calc Est GFR (MDRD) Af Amer Est GFR (MDRD) Non-Af BUN/Creatinine Ratio Glucose Hemoglobin A1c Lactic Acid 1.3 Calcium Troponin I B-Natriuretic Peptide POC Glucose 06/04/18 06/04/18 16:19 14:44 POC Glucose 157 H 70 Code Visit Addendum: Dr. Hart I personally examined the patient and reviewed the chart. I agree with the above . 63-year-old female with a history of pulmonary fibrosis and diabetes presenting with shortness of breath worsened over the last several weeks. She has difficulty with ambulation and has gained a significant amount of weight, though she is not edematous on exam. Her BNP was elevated however that is likely related to her renal function which does appear to be at baseline though we only have creatinine from 2015 that was 2.05 and she is currently 2.11 on admission. On her CT chest she was found to have bilateral pneumonia and therefore was started on azithromycin and Rocephin for community-acquired pneumonia likely secondary to. Given the fact that she has bilateral infiltrates also Legionella urine antigen was obtained. We will obtain an echo in the morning to evaluate for possible right-sided heart failure given her pulmonary fibrosis and her history of obstructive sleep apnea. Inpatient E&M: [id number] [facility] L3
[2018-06-04 16:15] LABS: Reflex Lactate? Y
--- NOTE | 2018-06-04 16:22 | ECHOD_ITS ---
Reason For Study: Dyspnea/SOB Procedure This was a 2D Doppler, Color Flow transthoracic echocardiogram. The study was technically difficult. Did not use Definity due to increased PAP. Exam performed portable in patient room. Left Ventricle Normal size and thickness. The estimated ejection fraction is 65 %. Normal diastology for age. Right Ventricle Moderately dilated right ventricle. Normal systolic function. Atria The left atrium is moderately enlarged. The right atrium is moderately enlarged. Normal atrial septum. Mitral Valve Mild diffuse mitral valve thickening. Trivial mitral valve insufficiency. Tricuspid Valve Normal tricuspid valve. Mild (1+) tricuspid valve insufficiency. Right ventricular systolic pressure estimated to be 56 mmHg. Moderate pulmonary hypertension. Aortic Valve Trisinus/trileaflet aortic valve. Mild diffuse aortic valve thickening. There is no aortic stenosis. Pulmonic Valve Normal pulmonic valve. Great Vessels Normal aortic root. Normal arch. Normal inferior vena cava. Inferior vena cava collapse with sniff. Pericardium/Pleural No pericardial effusion. MMode/2D Measurements & Calculations LVIDd: 6.0 cm IVSd: 1.1 cm Ao root diam: 3.0 cm LVIDs: 3.6 cm LVPWd: 1.1 cm RVDd: 4.9 cm FS: 40.2 % LAV(MOD-bp): 81.6 ml LA A4 area: 22.7 cm2 LA dimension(2D): 4.4 cm LAV(MOD-bp) Indexed: 34.5 ml/m2 LAV(MOD-sp2): 82.5 ml LAV(MOD-sp4): 73.2 ml RA A4 area: 23.3 cm2 Time Measurements MV dec time: 0.16 sec Doppler Measurements & Calculations MV E max rod: 125.3 cm/sec Lat Peak E' Rod: 5.4 cm/sec Med Peak E' Rod: 3.7 cm/sec MV A max rod: 118.5 cm/sec E/E' lat: 23.4 E/E' med: 33.5 MV E/A: 1.1 MV V2 max: 149.0 cm/sec MV P1/2t max rod: 149.0 cm/sec Ao V2 max: 185.2 cm/sec MV max P.9 mmHg MV P1/2t: 90.7 msec Ao max P.7 mmHg MV V2 mean: 70.5 cm/sec MV dec slope: 481.0 cm/sec2 Ao V2 mean: 138.7 cm/sec MV mean P.5 mmHg Ao mean P.3 mmHg MV V2 VTI: 58.1 cm MVA(P1/2t): 2.4 cm2 Ao V2 VTI: 43.9 cm LV V1 max: 114.9 cm/sec PA V2 max: 139.1 cm/sec TR max rod: 353.7 cm/sec LV V1 max P.3 mmHg TR max P.1 mmHg Interpretation Summary The estimated ejection fraction is 65 %. Moderately dilated right ventricle. The left atrium is moderately enlarged. The right atrium is moderately enlarged. Trivial mitral valve insufficiency. Right ventricular systolic pressure estimated to be 56 mmHg. Moderate pulmonary hypertension. Normal diastology for age. There is no comparison study available. Ordering Physician: SAMIR Barnes Referring Physician: Toby Aleman Performed By: Lyla Jensen RDCS, RVT
--- NOTE | 2018-06-04 16:24 | CASEMGMT ---
RN CM Assessment Introduced role of RN CM to patient and Mauricioienluis fernando Freeman at bedside. Patient is alert, oriented and able to participate in RN CM Assessment. Care providers, pharmacy, and demographics verified. Presentation: CC: Increased SOB, O2 Sat 70's at and sent to ER. PCP: Dr Toby Aleman Specialists: Pulm- Dr Luiz Olivia, Nephro- Dr Escalante- [place], [place] Preferred Pharmacy: [facility] Insurance: Medicare A Prescription Benefit: Yes LNOK: Padmini Jain LW/HPOA: No, States would like to s/w [employer] for information Living Arrangements: Lives with mauricioienluis fernando in a 2 story home with 2 steps to enter. Independent with ambulation and ADL's. Transportation: Patient drives, Padmini Freeman to transport on [place]. DME: CPAP- [facility], Glucometer, Nebulizer. Prefers Company on [facility], [place]- States Kilo has called her before but unsure what Company name is, states across from [employer]. (Per [employer]: Jose or Lars??) HHC: None SNF: None Goal: Home DC PLAN: Home with possible Home O2. SUZAN Daniel
[2018-06-04 16:46] LABS: Bedside Glucose 157 mg/dL (70-110)
[2018-06-04 16:59] LABS: Lactic Acid 1.3 mmol/L (0.4-2.0)
[2018-06-04] MEDS: Insulin Lispro 100 UNIT/ML INSULN.PEN SQ (17:12)
[2018-06-04] MEDS: Ipratropium/Albuterol Sulfate 3 ML AMPUL.NEB INHALATION (19:15)
[2018-06-04] MEDS: NINTEDANIB ESYLATE 150 MG CAPSULE PO (21:21)
[2018-06-04 22:00] LABS: Bedside Glucose 170 mg/dL (70-110)
[2018-06-04] MEDS: guaiFENesin 10 ML UDC (200MG/10ML) 15 ML PO (23:03)
[2018-06-04] MEDS: Rizatriptan Benzoate 10 MG Tablet PO (23:03)
[2018-06-04] MEDS: Atorvastatin Calcium 40 MG Tablet PO (23:04)
[2018-06-04] MEDS: Montelukast 10 MG Tablet PO (23:04)
[2018-06-04] MEDS: guaiFENesin 1,200 MG Tablet 1200 MG PO (23:04)
[2018-06-04] MEDS: Gabapentin 300 MG Capsule PO (23:04)
[2018-06-04] MEDS: Cyclopentolate 1% 2 ML Bottle 1 DRP LEFT EYE (23:06)
[2018-06-04] MEDS: Glycerin/Hypromellose/PEG400 15 ml Bottle 1 DRP RIGHT EYE (23:07)
[2018-06-04] MEDS: Insulin NPH Human 100 UNITS/ML PEN 30 UNITS SC (23:15)
[2018-06-05] VITALS (31 sets, daily range): BP systolic 111–168; BP diastolic 44–89; PULSE 50–69; RESP 12–32; TEMP 36.5–37.9; O2SAT 71–100
[2018-06-05] MEDS: 0.9% NaCl Peripheral Flush Adult/Peds IV ×5 (00:30→20:59)
[2018-06-05] MEDS: Ondansetron 4 MG/2 ML Vial IV (00:30)
[2018-06-05 00:41] LABS: Bedside Glucose 224 mg/dL (70-110)
[2018-06-05 05:59] LABS: Absolute Lymphocyte Count 0.84 X10^3/ul (0.83-4.51); Absolute Neutrophil Count 11.8 X10^3/uL (2.0-7.7); Basophil# 0.03 X10^3/uL; Basophil% 0.2 % (0-1); Eosinophil# 0.04 X10^3/uL; Eosinophils% 0.3 % (0-5); Hematocrit 30.6 % (37-47); Hemoglobin 9.1 g/dl (12.0-15.0); Lymphocyte # 0.84 X10^3/ul (4.0); Lymphocyte % 6.2 % (19-41); Mean Corp Hgb Conc 29.7 g/gl (32-36); Mean Corpuscular Hgb 31.3 pg (27.0-32.0); Mean Corpuscular Volume 105.2 fL (81-99); Mean Platelet Vol. 9.2 fl (6.2-12.0); Monocyte# 0.77 X10^3/uL; Monocyte% 5.7 % (0-10); Neutrophil # 11.84 X10^3/uL (2.7-7.7); Neutrophil % 87.5 % (47-70); Platelet Count 287 K/mm3 (150-450); RBC Distribution Width CV 14.7 % (11.6-14.6); RBC Distribution Width SD 54.9 fl (35.1-43.9); Red Blood Count 2.91 M/mm3 (4.2-5.4); White Blood Count 13.5 K/mm3 (4.4-11.0)
[2018-06-05] MEDS: Enoxaparin 30 MG/0.3 ML Syringe SC (06:09)
[2018-06-05 06:19] LABS: POSITIVE COUNT NO; POSITIVE DIFFERENTIAL NO; POSITIVE MORPHOLOGY NO
[2018-06-05 06:41] LABS: Anion Gap 6 (5-15); BUN 39 mg/dL (7-18); BUN/Creat Ratio 17.7 RATIO (10-20); Calcium,Total 8.1 mg/dL (8.5-10.1); Chloride 108 mmol/L (98-107); EST Glomerular Filtration Rate 24 mL/min (>60); Est Glom Filt Rate - Afr Amer 29 mL/min (>60); Estimated Creatinine Clearance 23.25 ml/min; Glucose 184 mg/dL (74-106); Potassium 5.8 mmol/L (3.5-5.1); Sodium Level 138 mmol/L (136-145)
[2018-06-05] MEDS: Ipratropium/Albuterol Sulfate 3 ML AMPUL.NEB INHALATION ×4 (06:47→19:16)
[2018-06-05 07:20] LABS: Bedside Glucose 180 mg/dL (70-110)
[2018-06-05 08:12] LABS: Hemoglobin A1c 6.1 % (4.2-6.3)
[2018-06-05 08:21] LABS: Allen Test POS; Base Excess -7 mmol/L (-2 to +2); Bicarbonate 20.1 mmol/L (22-26); Blood Gas Specimen Type ART; O2 Delivery Device NRB Mask; PO2 38 mmHG (75-100); SITE L Radial; SO2 62 % (95-99); Time Given 755; Total Carbon Dioxide 22 mmol/L; pH 7.24 (7.35-7.45)
--- NOTE | 2018-06-05 08:37 | CPS ---
Critical abg hand delivered to DR. Shelley. Results read back.
[2018-06-05] MEDS: Furosemide 20 MG/2 ML VIAL IV ×3 (09:19→20:53)
[2018-06-05] MEDS: prednisoLONE eye drops (5 mL) 1 DROP OPTH.BTL 2 DRP LEFT EYE (09:19)
[2018-06-05] MEDS: Glycerin/Hypromellose/PEG400 15 ml Bottle 1 DRP RIGHT EYE ×2 (09:21→20:58)
[2018-06-05 10:31] LABS: Bedside Glucose 179 mg/dL (70-110)
[2018-06-05 10:41] LABS: Allen Test POS; Base Excess -6 mmol/L (-2 to +2); Bicarbonate 20.1 mmol/L (22-26); Blood Gas Specimen Type ART; EPAP 10; FI02 100; PO2 102 mmHG (75-100); RR 12; SITE L Radial; SO2 97 % (95-99); Time Given 1010; Total Carbon Dioxide 21 mmol/L; pH 7.29 (7.35-7.45)
[2018-06-05] MEDS: Losartan Potassium 100 MG Tablet PO (11:24)
[2018-06-05] MEDS: amLODIPine 10 MG Tablet PO (11:24)
[2018-06-05] MEDS: Gabapentin 300 MG Capsule PO ×2 (11:24→20:55)
--- NOTE | 2018-06-05 12:29 | PN_ITS ---
Patient Problems: Active and Suspected Problems Severe sepsis (Acute) Subjective: Patient seen and examined. Patient placed on BiPAP this morning due to hypoxia. Tolerating BiPAP. Reports breathing improved. - Physical Exam General: Alert, Oriented x3, Cooperative HEENT: Atraumatic, PERRLA, EOMI, Normocephalic Neck: Supple, No JVD, Negative Carotid Bruits Lungs: Clear to auscultation, Diminished Cardiovascular: Regular rate, Regular Rhythm, Normal S1, Normal S2, No murmurs Abdomen: Bowel Sounds Present, Soft, Non Tender, Non-Distended, Obese Extremities: No clubbing, No cyanosis, No edema, Capillary Refill Less than 3 Seconds Skin: No rashes, No breakdown Musculoskeletal: No Tenderness to Palpation of Joints or Extremities Neurological: Cranial nerves II-XII grossly intact, Neuro grossly intact Psych/Mental Status: Normal Affect, Appropriate Vital Signs Temp Pulse Resp BP Pulse Ox 98.9 F 54 L 22 H 111/54 L 100 06/05/18 09:00 06/05/18 12:00 06/05/18 12:00 06/05/18 12:00 06/05/18 12:00 Oxygen Flow Rate (L/min) 15 Oxygen Delivery Method Bi-pap Weight: 304 lb 3.806 oz Body Mass Index (BMI) 51.5 Finger Stick Blood Glucose 70 Intake and Output for Last 24 Hours 06/03/18 06/04/18 06/05/18 23:59 23:59 23:59 Intake Total 240 / 240 854 / 854 Balance 240 / 240 854 / 854 Microbiology Past 72 Hours 06/05/18 06:20 Respiratory Panel (PCR) - Final Mucosa - Nasopharyngeal 06/05/18 04:54 Legionella Antigen - Final Urine, Clean Catch Laboratory Tests Past 24 Hrs 06/04/18 06/04/18 06/04/18 12:05 12:05 12:05 WBC 10.8 RBC 3.15 L Hgb 9.8 L Hct 32.0 L MCV 101.6 H MCH 31.1 MCHC 30.6 L RDW 15.1 H RDW Differential 55.3 H Plt Count 284 MPV 9.0 Immature Gran % (Auto) 0.200 Neut % (Auto) 77.7 H Lymph % (Auto) 11.9 L [place] % (Auto) 6.9 Eos % (Auto) 2.7 Baso % (Auto) 0.6 Absolute Neuts (auto) 8.4 H Absolute Lymphs (auto) 1.29 Total Counted Not Reportable Specimen Type Sample Site pH Bicarbonate Actual POC Total CO2 Base Excess O2 Saturation O2 % ABG pCO2 ABG pO2 Lazaro Test Respiration Rate O2 Delivery Device Liter Flow EPAP Blood Gas Notified Whom Blood Gas Notified Time Sodium 139 Potassium 5.0 Chloride 109 H Carbon Dioxide 22.0 Anion Gap 8 BUN 34 H Creatinine 2.11 H Estim Creat Clear Calc 24.24 Est GFR (MDRD) Af Amer 30 L Est GFR (MDRD) Non-Af 25 L BUN/Creatinine Ratio 16.1 Glucose 137 H Hemoglobin A1c Lactic Acid 2.1 H Calcium 8.7 Troponin I < 0.015 B-Natriuretic Peptide 06/04/18 06/04/18 06/04/18 12:05 12:23 16:28 WBC RBC Hgb Hct MCV MCH MCHC RDW RDW Differential Plt Count MPV Immature Gran % (Auto) Neut % (Auto) Lymph % (Auto) [place] % (Auto) Eos % (Auto) Baso % (Auto) Absolute Neuts (auto) Absolute Lymphs (auto) Total Counted Specimen Type ART Sample Site L Radial pH 7.33 L Bicarbonate Actual 18.8 L POC Total CO2 20 Base Excess -7 L O2 Saturation 92 L O2 % ABG pCO2 36.0 ABG pO2 67 L Lazaro Test Respiration Rate O2 Delivery Device Nasal Can Liter Flow 3.0 EPAP Blood Gas Notified Whom ED MD Blood Gas Notified Time 1222 Sodium Potassium Chloride Carbon Dioxide Anion Gap BUN Creatinine Estim Creat Clear Calc Est GFR (MDRD) Af Amer Est GFR (MDRD) Non-Af BUN/Creatinine Ratio Glucose Hemoglobin A1c Lactic Acid 1.3 Calcium Troponin I B-Natriuretic Peptide 213.5 H 06/05/18 06/05/18 06/05/18 05:20 05:20 05:20 WBC 13.5 H RBC 2.91 L Hgb 9.1 L Hct 30.6 L MCV 105.2 H MCH 31.3 MCHC 29.7 L RDW 14.7 H RDW Differential 54.9 H Plt Count 287 MPV 9.2 Immature Gran % (Auto) 0.100 Neut % (Auto) 87.5 H Lymph % (Auto) 6.2 L [place] % (Auto) 5.7 Eos % (Auto) 0.3 Baso % (Auto) 0.2 Absolute Neuts (auto) 11.8 H Absolute Lymphs (auto) 0.84 Total Counted Not Reportable Specimen Type Sample Site pH Bicarbonate Actual POC Total CO2 Base Excess O2 Saturation O2 % ABG pCO2 ABG pO2 Lazaro Test Respiration Rate O2 Delivery Device Liter Flow EPAP Blood Gas Notified Whom Blood Gas Notified Time Sodium 138 Potassium 5.8 H Chloride 108 H Carbon Dioxide 24.0 Anion Gap 6 BUN 39 H Creatinine 2.20 H Estim Creat Clear Calc 23.25 Est GFR (MDRD) Af Amer 29 L Est GFR (MDRD) Non-Af 24 L BUN/Creatinine Ratio 17.7 Glucose 184 H Hemoglobin A1c 6.1 Lactic Acid Calcium 8.1 L Troponin I B-Natriuretic Peptide 06/05/18 06/05/18 08:14 10:37 WBC RBC Hgb Hct MCV MCH MCHC RDW RDW Differential Plt Count MPV Immature Gran % (Auto) Neut % (Auto) Lymph % (Auto) [place] % (Auto) Eos % (Auto) Baso % (Auto) Absolute Neuts (auto) Absolute Lymphs (auto) Total Counted Specimen Type ART ART Sample Site L Radial L Radial pH 7.24 L 7.29 L Bicarbonate Actual 20.1 L 20.1 L POC Total CO2 22 21 Base Excess -7 L -6 L O2 Saturation 62 L 97 O2 % 100 ABG pCO2 47.0 H 42.0 ABG pO2 38 L* 102 H Lazaro Test POS POS Respiration Rate 12 O2 Delivery Device NRB Mask Bi / C PAP Liter Flow 15.0 EPAP 10 Blood Gas Notified Whom HOSP MD HOSP MD Blood Gas Notified Time 755 1010 Sodium Potassium Chloride Carbon Dioxide Anion Gap BUN Creatinine Estim Creat Clear Calc Est GFR (MDRD) Af Amer Est GFR (MDRD) Non-Af BUN/Creatinine Ratio Glucose Hemoglobin A1c Lactic Acid Calcium Troponin I B-Natriuretic Peptide POC Glucose 06/05/18 06/05/18 06/04/18 10:18 06:43 23:37 POC Glucose 179 H 180 H 224 H 06/04/18 06/04/18 06/04/18 21:18 16:19 14:44 POC Glucose 170 H 157 H 70 Medical Necessity - Tobacco Use Smoking Status: Former smoker Tobacco Use: Cigarettes Assessment/Plan All Active Problems Severe sepsis (Acute) Tobacco use disorder (Resolved) Cocaine dependence, episodic (Resolved) 1. Acute on chronic hypoxic respiratory failure secondary to bilateral community-acquired pneumonia and acute diastolic CHF-complicated by underlying pulmonary fibrosis, obstructive sleep apnea, and moderate pulmonary hypertension. Continue supplement oxygen to maintain O2 at or above 90%. Patient chronically wears oxygen at night. Continue BiPAP as tolerated and nightly. Wean oxygen as tolerated. Walking pulse ox prior to discharge. Follows with Dr. Olivia, [facility] pulmonary medicine. RVSP on echo 56 mmHg. 2. Acute bilateral community acquired pneumonia-chest CT with chronic interstitial lung disease with superimposed bilateral patchy pneumonia. Afe brile. No leukocytosis. IV azithromycin and IV Rocephin. Albuterol and DuoNeb aerosols. Mucinex 12 mg p.o. twice daily. Urine for strep and Legionella. Supplemental oxygen as noted above. Send sputum for culture. Respiratory panel negative. 3. Acute Diastolic CHF- BNP mildly elevated at admission. Echocardiogram shows an EF of 65%, RVSP estimated to be 56 mmHg. IV Lasix 20 mg every 8 hours. Strict I&O. Daily weight. 4. Chronic kidney disease, suspected stage III-appears at baseline. Trend BMP. 5. Hypertension-stable, continue home amlodipine, losartan regimen. 6. Hyperlipidemia-continue statin. 7. Depression-continue home citalopram regimen. 8. GERD-continue home PPI regimen. 9. Type 2 diabetes [id number] ACHS. SSI. Home insulin regimen on hold given hypoglycemia this morning and decreased oral intake with BiPAP. Hemoglobin A1c 6.1%. 10. Morbid obesity-encouraged diet and lifestyle modifications. Nutrition consult. 11. Former smoker-quit 8 years ago. Encouraged continued cessation. 12. Chronic macrocytic anemia-stable. DVT prophylaxis-Lovenox subcu This patient was seen by SAMIR Barnes under the supervision of Dr. Chavez.
--- NOTE | 2018-06-05 14:50 | CHAPLAIN ---
Type of Pastoral Visit _x__ Initial Visit ___ Follow-up Visit ___ On-call Visit ___ General Patient Visit ___ Spiritual Assessment ___ Family Conference ___ Bereavement ___ Rapid Response ___ Code Blue ___ Other (describe below) Pastoral Care Referral From _x__ Patient ___ Family ___ Nurse ___ Physician ___ Medical Assistant Prn ___ Memory Care Program Director ___ Other (describe below) Sacrament/Intervention _x__ Active listening ___ Anointing ___ Buddhism ___ Bereavement ___ Communion _x__ Renetta exploration ___ ___ Life review _x__ Prayer ___ Reconciliation ___ Sacrament of Sick _x__ Supportive presence ___ Wedding ___ Other (describe below) Pastoral Comments contacted scientology of patient per her request; pt would like further spiritual care support and follow up; pt requests prayer at this time
[2018-06-05 16:00] LABS: Bedside Glucose 128 mg/dL (70-110)
[2018-06-05] MEDS: guaiFENesin 1,200 MG Tablet 1200 MG PO (20:53)
[2018-06-05] MEDS: Atorvastatin Calcium 40 MG Tablet PO (20:54)
[2018-06-05] MEDS: Montelukast 10 MG Tablet PO (20:55)
[2018-06-05] MEDS: Cyclopentolate 1% 2 ML Bottle 1 DRP LEFT EYE (20:57)
[2018-06-05 21:56] LABS: Bedside Glucose 158 mg/dL (70-110)
[2018-06-05] MEDS: guaiFENesin 10 ML UDC (200MG/10ML) 15 ML PO (22:56)
[2018-06-06] VITALS (45 sets, daily range): BP systolic 83–179; BP diastolic 42–155; PULSE 40–77; RESP 12–35; TEMP 35.2–39.2; O2SAT 85–98
[2018-06-06] MEDS: Acetaminophen 325 MG Tablet 650 MG PO (03:10)
[2018-06-06] MEDS: Albuterol 2.5 MG/3 ML VIAL.NEB. INHALATION (05:07)
--- NOTE | 2018-06-06 05:08 | CPS ---
RT called to Pt's room because O2 sats had dropped in the low 80s per RN. Increased O2% to 100% and gave PT prn aerosol
[2018-06-06] MEDS: Furosemide 20 MG/2 ML VIAL IV ×2 (05:47→21:16)
[2018-06-06] MEDS: Enoxaparin 30 MG/0.3 ML Syringe SC (05:47)
[2018-06-06] MEDS: 0.9% NaCl Peripheral Flush Adult/Peds IV ×5 (05:48→21:16)
[2018-06-06 05:51] LABS: Hematocrit 25.2 % (37-47); Hemoglobin 7.3 g/dl (12.0-15.0); Mean Corpuscular Hgb 30.4 pg (27.0-32.0); Mean Platelet Vol. 9.5 fl (6.2-12.0); Platelet Count 249 K/mm3 (150-450); White Blood Count 11.5 K/mm3 (4.4-11.0)
[2018-06-06 05:53] LABS: Scan Indicated on CBC? Y/N NO
[2018-06-06 06:03] LABS: Anion Gap 7 (5-15); BUN 52 mg/dL (7-18); BUN/Creat Ratio 18.2 RATIO (10-20); Calcium,Total 8.2 mg/dL (8.5-10.1); Chloride 106 mmol/L (98-107); Creatinine, Serum 2.86 mg/dL (0.55-1.02); EST Glomerular Filtration Rate 18 mL/min (>60); Est Glom Filt Rate - Afr Amer 21 mL/min (>60); Estimated Creatinine Clearance 17.88 ml/min; Glucose 159 mg/dL (74-106); Potassium 5.4 mmol/L (3.5-5.1); Sodium Level 136 mmol/L (136-145)
[2018-06-06 07:10] LABS: Bedside Glucose 165 mg/dL (70-110)
[2018-06-06] MEDS: Ipratropium/Albuterol Sulfate 3 ML AMPUL.NEB INHALATION ×4 (07:13→18:43)
--- NOTE | 2018-06-06 08:50 | RAD_ITS ---
STUDY: X-RAY CHEST REASON FOR EXAM: Female, 63 years old. Shortness of breath TECHNIQUE: Single AP portable view of the chest. COMPARISON: Chest x-ray 06/04/2018. FINDINGS: There are low lung volumes. There is increased diffuse bilateral interstitial lung markings and alveolar disease. No pneumothorax. There may be small bilateral pleural effusions. Stable heart size. Normal mediastinum and carolyn. Normal visualized pulmonary arteries. Normal visualized aortic arch and descending thoracic aorta. Normal visualized thoracic spine. Normal visualized ribs, clavicles, and shoulders. There is no demonstrated abnormality of the visualized soft tissue structures of the upper abdomen. RAD/Chest 1 View (Portable) IMPRESSION: Increased diffuse bilateral pulmonary interstitial lung markings and alveolar disease, this may represent increasing pulmonary edema and/or worsening pneumonia. There is suggestion of small bilateral pleural effusions. Electronically Signed: Carmen Price, at 9:34 EDT Tel , Service support ,
[2018-06-06 09:10] LABS: Allen Test POS; Base Excess -6 mmol/L (-2 to +2); Bicarbonate 20.8 mmol/L (22-26); Blood Gas Specimen Type ART; EPAP 10; FI02 100; PO2 74 mmHG (75-100); SITE L Radial; SO2 92 % (95-99); Time Given 900; Total Carbon Dioxide 22 mmol/L; pCO2 45.7 mmHg (35-45); pH 7.27 (7.35-7.45)
[2018-06-06] MEDS: prednisoLONE eye drops (5 mL) 1 DROP OPTH.BTL 2 DRP LEFT EYE (10:24)
[2018-06-06] MEDS: Glycerin/Hypromellose/PEG400 15 ml Bottle 1 DRP RIGHT EYE ×2 (10:25→21:18)
[2018-06-06] MEDS: amLODIPine 10 MG Tablet PO (10:27)
[2018-06-06] MEDS: Gabapentin 300 MG Capsule PO ×2 (10:27→21:19)
[2018-06-06] MEDS: Losartan Potassium 100 MG Tablet PO (10:27)
[2018-06-06 10:40] LABS: D-Dimer Quantitative (DVT/PE) 2.94 FEU/ug/m (0.27-0.49)
--- NOTE | 2018-06-06 10:50 | CT_ITS ---
STUDY: CTA CHEST REASON FOR EXAM: Female, 63 years old. Dyspnea. Hypoxia. Elevated d-dimer RADIATION DOSAGE (If Supplied By Facility): CTDIvol = ( 26.51 ) mGy, DLP = ( 818.69 ) mGycm TECHNIQUE: The examination was performed with the intravenous administration of Isovue 370 50 IV. Post-processing of the angiographic images was performed, with multiplanar reformation and 3D reconstruction. Individualized dose optimization techniques were used for this CT. COMPARISON: 06/04/2018 FINDINGS: Normal enhancement of the main pulmonary artery and right and left pulmonary arteries. There is suboptimal enhancement of the bilateral peripheral pulmonary arteries due to patient body habitus. There is no demonstrated pulmonary embolism. Normal thoracic aorta and visualized great vessels. There is no demonstrated aortic dissection. Normal heart and pericardium. Normal mediastinum. Normal hilar regions. Normal visualized trachea and bronchi. The lungs are under expanded. There is diffuse interstitial thickening in both lungs consistent with chronic interstitial lung disease. There are superimposed groundglass opacities worse since the previous study and may represent bilateral pneumonia or ARDS. Normal pleura. Normal chest wall structures. Normal osseous structures. Normal visualized upper abdomen. CT/CTA Chest W/WO Contrast IMPRESSION: No demonstrated pulmonary embolism or arterial dissection. Worsening bilateral pneumonia or ARDS. Electronically Signed: Karena Hawk, at 12:33 EDT Tel , Service support ,
[2018-06-06 11:31] LABS: Bedside Glucose 170 mg/dL (70-110)
[2018-06-06 12:58] LABS: Hematocrit 25.4 % (37-47); Hemoglobin 7.6 g/dl (12.0-15.0)
--- NOTE | 2018-06-06 13:23 | PCM.CON.CC ---
Problem List (1) Obstructive sleep apnea Status: Chronic (2) Respiratory failure with hypoxia Status: Chronic Qualifiers: Chronicity: acute on chronic Qualified Code(s): J96.21 - Acute and chronic respiratory failure with hypoxia (3) Severe sepsis Status: Acute (4) Pulmonary fibrosis Status: Chronic (5) Obesity Status: Chronic Qualifiers: Body mass index: BMI 50.0-59.9 (6) Hypertension Status: Chronic (7) Depression Status: Chronic (8) Controlled diabetes mellitus type II without complication Status: Chronic Reason for Consult Date of Consultation: 06/06/18 Reason for Consultation: Acute respiratory failure History of Present Illness: The patient is a 63 year old F, with past medical history listed below, who presented to [facility] on 06/04/2018 secondary to progressive shortness of breath. Patient reportedly had reported worsening shortness of breath over the last 2-3 months, but this was significant over the last 1-2 weeks. Patient states this was associated with nasal congestion, nonproductive cough and subjective fevers. Patient did not have any documented fevers and denied any headache, chest pain orthopnea or PND. Patient had reportedly presented to the urgent care center and was found to have a pulse ox in the 70s, so was transported to the ER for further evaluation. In the emergency room, patient was requiring 4-5 L nasal cannula to maintain the saturation of 90%. CT scan of the chest showed some possible early pneumonia versus CHF and a lactic acidosis that was suspected to be secondary to hypoxia. Patient was given IV antibiotics and diuretic therapy and admitted to the PCU. Shortly after arrival to the PCU, patient was placed on AVAPS and quickly started to require 100% FiO2. Patient had remained on 100% FiO2 overnight and through this morning. Patient had taken short breaks to drink water, but otherwise was essentially BiPAP dependent. D-dimer was elevated, so repeat CT scan was completed showing worsening infiltrates bilaterally with upper lobe predominance. Patient was transferred to the intensive care unit for further evaluation. A repeat ABG showed partially compensated mixed acidosis with significant AA gradient approaching shunt physiology After arrival to the intensive care unit, patient was updated on her condition. Patient is electing intubation to stabilize her overall condition. Patient would also like her significant other to be making decisions at the bedside. Patient does have a history of early pulmonary fibrosis being treated with OFEV. Patient also has obstructive sleep apnea, pulmonary hypertension and morbid obesity. Patient is unaware of her last pulmonary function test results. Review of systems otherwise negative x10 systems Past Medical History Past Medical History (Chronic Problems): Chronic Problems Obstructive sleep apnea (Chronic) Respiratory failure with hypoxia (Chronic) Pulmonary fibrosis (Chronic) Obesity (Chronic) Hypertension (Chronic) Depression (Chronic) Controlled diabetes mellitus type II without complication (Chronic) Allergies haloperidol [From Haldol] Allergy (Verified 06/04/18 11:53) Rash haloperidol lactate [From Haldol] Allergy (Verified 06/04/18 11:53) Rash Home Medications: Ambulatory Orders Medication Instructions Recorded Citalopram [Celexa] 40 mg PO DAILY 02/05/15 Amlodipine Besylate [Norvasc] 10 mg PO DAILY 06/04/18 Atorvastatin Calcium [Lipitor] 40 mg PO QHS 06/04/18 Cyclopentolate HCl 1 drop LEFT EYE QHS 06/04/18 Gabapentin [Neurontin] 300 mg PO BID 06/04/18 Insulin NPH Human Isophane 30 unit SQ BID 06/04/18 [Novolin N] Insulin Regular, Human [Novolin R] 30 unit SQ TIDCM 06/04/18 Losartan Potassium 100 mg PO DAILY 06/04/18 Montelukast [Singulair] 10 mg PO QHS 06/04/18 Nintedanib Esylate [Ofev] 150 mg PO BIDCM 06/04/18 Pantoprazole Sodium [Protonix] 20 mg PO DAILY 06/04/18 Prednisolone Acetate 2 drop LEFT EYE DAILY 06/04/18 Tetrahydrz/Dext 70/Peg 400/Pvp 1 drop RIGHT EYE BID 06/04/18 [Visine Advanced Eye Drop] Surgical History: cholecystectomy, tonsillectomy Psychiatric History: Depression 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 CT scan of the chest does show mild pulmonary fibrosis, but there is a significant worsening in infiltrate with apical predominance over the last 24 hours despite diuresis. Echocardiogram shows an EF of 65% with moderately enlarged right atrium and RVSP of 56 mmHg. No previous echocardiograms available for review. - Physical Exam General: Alert, Oriented x3, Cooperative, - - Mild respiratory distress while on BiPAP therapy. Morbidly obese. HEENT: Atraumatic, PERRLA, EOMI, Normocephalic, - - Slight scleral injection without icterus Oral: No Gingival or Mucosal Lesions/ Ulcerations, Dry Mucosa Neck: Supple, No JVD, No Nodes, Trachea Midline Lungs: No rhonchi, No wheeze, Diminished, Rales - Posteriorly, - - Symmetric expansion. No dullness to percussion. Cardiovascular: Regular rate, Regular Rhythm, Normal S1, Normal S2, No murmurs, No rub noted, No Gallop, - - Distant heart sounds secondary to body habitus Abdomen: Bowel Sounds Present, Soft, Non Tender, Non-Distended, Obese Extremities: No clubbing, No cyanosis, Edema - Trace lower extremity Skin: No rashes, No breakdown Musculoskeletal: No Tenderness to Palpation of Joints or Extremities Lymphatic: No Cervical, Supraclavicular, or Inguinal Adenopathy Neurological: Cranial nerves II-XII grossly intact, Neuro grossly intact, Motor Exam 5/5 strength throughout Psych/Mental Status: Anxious, Impulsive Vital Signs Temp Pulse Resp BP Pulse Ox 37.4 C H 58 L 35 H 151/64 H 94 06/06/18 12:24 06/06/18 12:45 06/06/18 12:45 06/06/18 12:24 06/06/18 12:45 Oxygen Flow Rate (L/min) 15 Oxygen Delivery Method Bi-pap Weight: 137.2 kg Body Mass Index (BMI) 51.5 Finger Stick Blood Glucose 70 Intake and Output for Last 24 Hours 06/04/18 06/05/18 06/06/18 23:59 23:59 23:59 Intake Total 240 / 240 1094 / 1094 740 / 740 Output Total 1350 / 1350 900 / 900 Balance 240 / 240 -256 / -256 -160 / -160 Microbiology Past 72 Hours 06/04/18 15:15 Blood Culture - Preliminary Blood Culture (Wb) - Right Hand No growth in 48 hours. 06/04/18 12:03 Blood Culture - Preliminary Blood Culture (Wb) - Anticubital Left No growth in 48 hours. 06/05/18 06:20 Respiratory Panel (PCR) - Final Mucosa - Nasopharyngeal 06/05/18 04:54 Legionella Antigen - Final Urine, Clean Catch Laboratory Tests Past 24 Hrs 06/06/18 06/06/18 06/06/18 05:20 05:20 09:07 WBC 11.5 H RBC 2.40 L Hgb 7.3 L Hct 25.2 L MCV 105.0 H MCH 30.4 MCHC 29.0 L RDW 15.0 H RDW Differential 56.0 H Plt Count 249 MPV 9.5 D-Dimer Quant (PE/DVT) Specimen Type ART Sample Site L Radial pH 7.27 L Bicarbonate Actual 20.8 L POC Total CO2 22 Base Excess -6 L O2 Saturation 92 L O2 % 100 ABG pCO2 45.7 H ABG pO2 74 L Lazaro Test POS O2 Delivery Device Bi / C PAP EPAP 10 Blood Gas Notified Whom [facility] Blood Gas Notified Time 900 Sodium 136 Potassium 5.4 H Chloride 106 Carbon Dioxide 23.0 Anion Gap 7 BUN 52 H Creatinine 2.86 H Estim Creat Clear Calc 17.88 Est GFR (MDRD) Af Amer 21 L Est GFR (MDRD) Non-Af 18 L BUN/Creatinine Ratio 18.2 Glucose 159 H Calcium 8.2 L 06/06/18 06/06/18 10:10 12:45 WBC RBC Hgb 7.6 L Hct 25.4 L MCV MCH MCHC RDW RDW Differential Plt Count MPV D-Dimer Quant (PE/DVT) 2.94 H* Specimen Type Sample Site pH Bicarbonate Actual POC Total CO2 Base Excess O2 Saturation O2 % ABG pCO2 ABG pO2 Lazaro Test O2 Delivery Device EPAP Blood Gas Notified Whom Blood Gas Notified Time Sodium Potassium Chloride Carbon Dioxide Anion Gap BUN Creatinine Estim Creat Clear Calc Est GFR (MDRD) Af Amer Est GFR (MDRD) Non-Af BUN/Creatinine Ratio Glucose Calcium POC Glucose 06/06/18 06/06/18 06/05/18 11:25 07:03 21:03 POC Glucose 170 H 165 H 158 H 06/05/18 15:43 POC Glucose 128 H Clinical Impression(s) from Imaging Studies Chest X-Ray 06/04/18 12:20 IMPRESSION: Pulmonary edema or bilateral pneumonia. Electronically Signed: Karena Hawk, at 12:38 EDT Tel , Service support , Chest CT 06/04/18 13:06 IMPRESSION: Chronic interstitial lung disease with superimposed bilateral patchy pneumonia. Electronically Signed: Karena Hawk, at 14:44 EDT Tel , Service support , Chest X-Ray 06/06/18 08:50 IMPRESSION: Increased diffuse bilateral pulmonary interstitial lung markings and alveolar disease, this may represent increasing pulmonary edema and/or worsening pneumonia. There is suggestion of small bilateral pleural effusions. Electronically Signed: Carmen Price, at 9:34 EDT Tel , Service support , Chest CTA 06/06/18 10:50 IMPRESSION: No demonstrated pulmonary embolism or arterial dissection. Worsening bilateral pneumonia or ARDS. Electronically Signed: Thurstonjavier Hawk, at 12:33 EDT Tel , Service support , Assessment/Plan Active and Suspected Problems Severe sepsis (Acute) RECOMMENDATIONS: 1. Semi-elective intubation 2. ABG in 1 hour 3. Obtain in-line sputum sample 4. Continue antibiotics, steroids and mucolytic 5. Increase PEEP as necessary, wean oxygen IMPRESSIONS: 1. Acute on chronic combined respiratory failure with possible ARDS Unclear etiology at this time. Patient has not responded to diuretic therapy. Patient does have moderate pulmonary hypertension, pulmonary fibrosis and diastolic congestive heart failure. Patient's OFEV has been on hold. It is unlikely this is going to make an acute difference. After review of patient's case, patient has elected to be intubated. Anticipate high PEEP requirements initially. Will attempt low tidal volume ventilation, but significant acidosis was noted previously on ABG. Continue with empiric antibiotics, steroids and mucolytic. 2. Acute on chronic diastolic congestive heart failure versus cor pulmonale Patient has been receiving diuretic therapy secondary to a mildly elevated BNP. Given apical predominance, there is lower clinical suspicion for a predominant congestive heart failure component. We will continue to monitor. Troponins have been negative. 3. Diabetes mellitus type 2 Patient will be initiated on tube feeds. We will need to watch blood sugars closely given concomitant steroid therapy. Sliding scale insulin has been ordered. We will hold off on basal insulin until trend is notable. 4. Morbid obesity/CKD stage III/hypertension/hyperlipidemia/depression/GERD/history of smoking Complicates care, management, recovery and prognosis. Okay to continue with baseline medications for now. May need to make alterations following placement of OG. ADDENDUM 1555: Intubation Indication: Acute respiratory failure Consent was obtained from: Verbal consent from patient The patient was placed in the appropriate sniffing position. Preoxygenated sedation via BPV was provided for a minimum of 3 minutes. The patient had continuous cardiac as well as pulse oximetry monitoring during the procedure. Procedure sedation was provided by the administration of 40 mg of etomidate and 2 mg of Versed. Direct laryngoscopy was then performed using a number 4 blade, which revealed a grade 1 view. A 8 mm endotracheal tube was visualized advancing between the cords to the level of 25 cm at the lip. The stylette was then removed and discarded. Tube placement was confirmed by fogging in the tube along with equal and bilateral breath sounds. Colorimetric change was visualized on the CO2 meter. The cuff was then inflated and the tube secured using a commercially available device. A good pulse oximetry waveform was seen on the monitor throughout the procedure. A portable chest x-ray has been ordered to confirm appropriate placement. The patient tolerated the procedure well. Patient continued to have issues with oxygenation. Patient was eventually titrated to PEEP of 16 with 100% FiO2. Patient has been able to be weaned to 60% after better stabilization of sedation. ABG showed a combined acidosis, so tidal volumes were increased to 450. TIME: 80 minutes of critical care time spent addressing patient's acute on chronic respiratory failure, congestive heart failure, ARDS, clarification of CODE STATUS, review of all data and collaboration with care team (12:30 PM to 1:45 PM, 2 PM to 4 PM) Code Visit Procedures: 88535 Critial Care Addl 30 Min 9xxxx: [id number] Critical care first hour
--- NOTE | 2018-06-06 13:37 | CON.PCM_ITS ---
Problem List (1) Obstructive sleep apnea Status: Chronic (2) Respiratory failure with hypoxia Status: Chronic Qualifiers: Chronicity: acute on chronic Qualified Code(s): J96.21 - Acute and chronic respiratory failure with hypoxia (3) Severe sepsis Status: Acute (4) Pulmonary fibrosis Status: Chronic (5) Obesity Status: Chronic Qualifiers: Body mass index: BMI 50.0-59.9 (6) Hypertension Status: Chronic (7) Depression Status: Chronic (8) Controlled diabetes mellitus type II without complication Status: Chronic Reason for Consult Date of Consultation: 06/06/18 Reason for Consultation: Acute respiratory failure History of Present Illness: The patient is a 63 year old F, with past medical history listed below, who presented to [facility] on 06/04/2018 secondary to progressive shortness of breath. Patient reportedly had reported worsening shortness of breath over the last 2-3 months, but this was significant over the last 1-2 weeks. Patient states this was associated with nasal congestion, nonproductive cough and subjective fevers. Patient did not have any documented fevers and denied any headache, chest pain orthopnea or PND. Patient had reportedly presented to the urgent care center and was found to have a pulse ox in the 70s, so was transported to the ER for further evaluation. In the emergency room, patient was requiring 4-5 L nasal cannula to maintain the saturation of 90%. CT scan of the chest showed some possible early pneumonia versus CHF and a lactic acidosis that was suspected to be secondary to hypoxia. Patient was given IV antibiotics and diuretic therapy and admitted to the PCU. Shortly after arrival to the PCU, patient was placed on AVAPS and quickly started to require 100% FiO2. Patient had remained on 100% FiO2 overnight and through this morning. Patient had taken short breaks to drink water, but otherwise was essentially BiPAP dependent. D-dimer was elevated, so repeat CT scan was completed showing worsening infiltrates bilaterally with upper lobe predominance. Patient was transferred to the intensive care unit for further evaluation. A repeat ABG showed partially compensated mixed acidosis with significant AA gradient approaching shunt physiology After arrival to the intensive care unit, patient was updated on her condition. Patient is electing intubation to stabilize her overall condition. Patient would also like her significant other to be making decisions at the bedside. Patient does have a history of early pulmonary fibrosis being treated with OFEV. Patient also has obstructive sleep apnea, pulmonary hypertension and morbid obesity. Patient is unaware of her last pulmonary function test results. Review of systems otherwise negative x10 systems Past Medical History Past Medical History (Chronic Problems): Chronic Problems Obstructive sleep apnea (Chronic) Respiratory failure with hypoxia (Chronic) Pulmonary fibrosis (Chronic) Obesity (Chronic) Hypertension (Chronic) Depression (Chronic) Controlled diabetes mellitus type II without complication (Chronic) Allergies haloperidol [From Haldol] Allergy (Verified 06/04/18 11:53) Rash haloperidol lactate [From Haldol] Allergy (Verified 06/04/18 11:53) Rash Home Medications: Ambulatory Orders Medication Instructions Recorded Citalopram [Celexa] 40 mg PO DAILY 02/05/15 Amlodipine Besylate [Norvasc] 10 mg PO DAILY 06/04/18 Atorvastatin Calcium [Lipitor] 40 mg PO QHS 06/04/18 Cyclopentolate HCl 1 drop LEFT EYE QHS 06/04/18 Gabapentin [Neurontin] 300 mg PO BID 06/04/18 Insulin NPH Human Isophane 30 unit SQ BID 06/04/18 [Novolin N] Insulin Regular, Human [Novolin R] 30 unit SQ TIDCM 06/04/18 Losartan Potassium 100 mg PO DAILY 06/04/18 Montelukast [Singulair] 10 mg PO QHS 06/04/18 Nintedanib Esylate [Ofev] 150 mg PO BIDCM 06/04/18 Pantoprazole Sodium [Protonix] 20 mg PO DAILY 06/04/18 Prednisolone Acetate 2 drop LEFT EYE DAILY 06/04/18 Tetrahydrz/Dext 70/Peg 400/Pvp 1 drop RIGHT EYE BID 06/04/18 [Visine Advanced Eye Drop] Surgical History: cholecystectomy, tonsillectomy Psychiatric History: Depression 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 CT scan of the chest does show mild pul monary fibrosis, but there is a significant worsening in infiltrate with apical predominance over the last 24 hours despite diuresis. Echocardiogram shows an EF of 65% with moderately enlarged right atrium and RVSP of 56 mmHg. No previous echocardiograms available for review. - Physical Exam General: Alert, Oriented x3, Cooperative, - - Mild respiratory distress while on BiPAP therapy. Morbidly obese. HEENT: Atraumatic, PERRLA, EOMI, Normocephalic, - - Slight scleral injection without icterus Oral: No Gingival or Mucosal Lesions/ Ulcerations, Dry Mucosa Neck: Supple, No JVD, No Nodes, Trachea Midline Lungs: No rhonchi, No wheeze, Diminished, Rales - Posteriorly, - - Symmetric expansion. No dullness to percussion. Cardiovascular: Regular rate, Regular Rhythm, Normal S1, Normal S2, No murmurs, No rub noted, No Gallop, - - Distant heart sounds secondary to body habitus Abdomen: Bowel Sounds Present, Soft, Non Tender, Non-Distended, Obese Extremities: No clubbing, No cyanosis, Edema - Trace lower extremity Skin: No rashes, No breakdown Musculoskeletal: No Tenderness to Palpation of Joints or Extremities Lymphatic: No Cervical, Supraclavicular, or Inguinal Adenopathy Neurological: Cranial nerves II-XII grossly intact, Neuro grossly intact, Motor Exam 5/5 strength throughout Psych/Mental Status: Anxious, Impulsive Vital Signs Temp Pulse Resp BP Pulse Ox 37.4 C H 58 L 35 H 151/64 H 94 06/06/18 12:24 06/06/18 12:45 06/06/18 12:45 06/06/18 12:24 06/06/18 12:45 Oxygen Flow Rate (L/min) 15 Oxygen Delivery Method Bi-pap Weight: 137.2 kg Body Mass Index (BMI) 51.5 Finger Stick Blood Glucose 70 Intake and Output for Last 24 Hours 06/04/18 06/05/18 06/06/18 23:59 23:59 23:59 Intake Total 240 / 240 1094 / 1094 740 / 740 Output Total 1350 / 1350 900 / 900 Balance 240 / 240 -256 / -256 -160 / -160 Microbiology Past 72 Hours 06/04/18 15:15 Blood Culture - Preliminary Blood Culture (Wb) - Right Hand No growth in 48 hours. 06/04/18 12:03 Blood Culture - Preliminary Blood Culture (Wb) - Anticubital Left No growth in 48 hours. 06/05/18 06:20 Respiratory Panel (PCR) - Final Mucosa - Nasopharyngeal 06/05/18 04:54 Legionella Antigen - Final Urine, Clean Catch Laboratory Tests Past 24 Hrs 06/06/18 06/06/18 06/06/18 05:20 05:20 09:07 WBC 11.5 H RBC 2.40 L Hgb 7.3 L Hct 25.2 L MCV 105.0 H MCH 30.4 MCHC 29.0 L RDW 15.0 H RDW Differential 56.0 H Plt Count 249 MPV 9.5 D-Dimer Quant (PE/DVT) Specimen Type ART Sample Site L Radial pH 7.27 L Bicarbonate Actual 20.8 L POC Total CO2 22 Base Excess -6 L O2 Saturation 92 L O2 % 100 ABG pCO2 45.7 H ABG pO2 74 L Lazaro Test POS O2 Delivery Device Bi / C PAP EPAP 10 Blood Gas Notified Whom [facility] Blood Gas Notified Time 900 Sodium 136 Potassium 5.4 H Chloride 106 Carbon Dioxide 23.0 Anion Gap 7 BUN 52 H Creatinine 2.86 H Estim Creat Clear Calc 17.88 Est GFR (MDRD) Af Amer 21 L Est GFR (MDRD) Non-Af 18 L BUN/Creatinine Ratio 18.2 Glucose 159 H Calcium 8.2 L 06/06/18 06/06/18 10:10 12:45 WBC RBC Hgb 7.6 L Hct 25.4 L MCV MCH MCHC RDW RDW Differential Plt Count MPV D-Dimer Quant (PE/DVT) 2.94 H* Specimen Type Sample Site pH Bicarbonate Actual POC Total CO2 Base Excess O2 Saturation O2 % ABG pCO2 ABG pO2 Lazaro Test O2 Delivery Device EPAP Blood Gas Notified Whom Blood Gas Notified Time Sodium Potassium Chloride Carbon Dioxide Anion Gap BUN Creatinine Estim Creat Clear Calc Est GFR (MDRD) Af Amer Est GFR (MDRD) Non-Af BUN/Creatinine Ratio Glucose Calcium POC Glucose 06/06/18 06/06/18 06/05/18 11:25 07:03 21:03 POC Glucose 170 H 165 H 158 H 06/05/18 15:43 POC Glucose 128 H Clinical Impression(s) from Imaging Studies Chest X-Ray 06/04/18 12:20 IMPRESSION: Pulmonary edema or bilateral pneumonia. Electronically Signed: Karena Hawk, at 12:38 EDT Tel , Service support , Chest CT 06/04/18 13:06 IMPRESSION: Chronic interstitial lung disease with superimposed bilateral patchy pneumonia. Electronically Signed: Karena Lawsonan, at 14:44 EDT Tel , Service support , Chest X-Ray 06/06/18 08:50 IMPRESSION: Increased diffuse bilateral pulmonary interstitial lung markings and alveolar disease, this may represent increasing pulmonary edema and/or worsening pneumonia. There is suggestion of small bilateral pleural effusions. Electronically Signed: Carmen Price, at 9:34 EDT Tel , Service support , Chest CTA 06/06/18 10:50 IMPRESSION: No demonstrated pulmonary embolism or arterial dissection. Worsening bilateral pneumonia or ARDS. Electronically Signed: Karena Hawk, at 12:33 EDT Tel , Service support , Assessment/Plan Active and Suspected Problems Severe sepsis (Acute) RECOMMENDATIONS: 1. Semi-elective intubation 2. ABG in 1 hour 3. Obtain in-line sputum sample 4. Continue antibiotics, steroids and mucolytic 5. Increase PEEP as necessary, wean oxygen IMPRESSIONS: 1. Acute on chronic combined respiratory failure with possible ARDS Unclear etiology at this time. Patient has not responded to diuretic therapy. Patient does have moderate pulmonary hypertension, pulmonary fibrosis and diastolic congestive heart failure. Patient's OFEV has been on hold. It is unlikely this is going to make an acute difference. After review of patient's case, patient has elected to be intubated. Anticipate high PEEP requirements initially. Will attempt low tidal volume ventilation, but significant acidosis was noted previously on ABG. Continue with empiric antibiotics, steroids and mucolytic. 2. Acute on chronic diastolic congestive heart failure versus cor pulmonale Patient has been receiving diuretic therapy secondary to a mildly elevated BNP. Given apical predominance, there is lower clinical suspicion for a predominant congestive heart failure component. We will continue to monitor. Troponins have been negative. 3. Diabetes mellitus type 2 Patient will be initiated on tube feeds. We will need to watch blood sugars closely given concomitant steroid therapy. Sliding scale insulin has been ordered. We will hold off on basal insulin until trend is notable. 4. Morbid obesity/CKD stage III/hypertension/hyperlipidemia/depression/GERD/history of smoking Complicates care, management, recovery and prognosis. Okay to continue with baseline medications for now. May need to make alterations following placement of OG. ADDENDUM 1555: Intubation Indication: Acute respiratory failure Consent was obtained from: Verbal consent from patient The patient was placed in the appropriate sniffing position. Preoxygenated sedation via BPV was provided for a minimum of 3 minutes. The patient had continuous cardiac as well as pulse oximetry monitoring during the procedure. Procedure sedation was provided by the administration of 40 mg of etomidate and 2 mg of Versed. Direct laryngoscopy was then performed using a number 4 blade, which revealed a grade 1 view. A 8 mm endotracheal tube was visualized advancing between the cords to the level of 25 cm at the lip. The stylette was then removed and discarded. Tube placement was confirmed by fogging in the tube along with equal and bilateral breath sounds. Colorimetric change was visualized on the CO2 meter. The cuff was then inflated and the tube secured using a commercially available device. A good pulse oximetry waveform was seen on the monitor throughout the procedure. A portable chest x-ray has been ordered to confirm appropriate placement. The patient tolerated the procedure well. Patient continued to have issues with oxygenation. Patient was eventually titrated to PEEP of 16 with 100% FiO2. Patient has been able to be weaned to 60% after better stabilization of sedation. ABG showed a combined acidosis, so tidal volumes were increased to 450. TIME: 80 minutes of critical care time spent addressing patient's acute on chronic respiratory failure, congestive heart failure, ARDS, clarification of CODE STATUS, review of all data and collaboration with care team (12:30 PM to 1:45 PM, 2 PM to 4 PM) Code Visit Procedures: 69754 Critial Care Addl 30 Min 9xxxx: [id number] Critical care first hour
--- NOTE | 2018-06-06 14:10 | CASEMGMT ---
SW completed advance directives with patient. She was on the bi-pap, but agreed to complete documents. Completed documents with patient. Copies made and given to patient along with originals. SW also put a copy of each in patient's chart. Patient named her significant other, Pete Jain as her POA and her 2 sons are her alternates. Christy ALEXANDRA NATURAL RESOURCE SPECIALIST
--- NOTE | 2018-06-06 14:19 | NURSING ---
Dr. Weldon at [facility] for elective intubation 1420 20 mg etomidate given 1421 57 86% 15 168/116 ETT advanced, bagging 1422 difficult to auscultate bilat breath sounds 75 93% 24 161/119 1423 airway assessed per glydescope, suctioned, ETT secured per RT 1424 50 mg/hr fentanyl started 10 mcg/kg/min propofol started 2 versed given 1425 66 91% 20 156/105 ETT 25 cm at center mouth, bagging Radiology phoned for stat CXR
[2018-06-06] MEDS: Etomidate 20 MG/10 ML Vial IV (14:20)
[2018-06-06] MEDS: fentaNYL drip 100 ML 5 MCG IV ×2 (14:24→23:47)
[2018-06-06] MEDS: Midazolam 2 MG/2 ML Syringe IV (14:24)
[2018-06-06] MEDS: Propofol 10MG/Ml 1,000 MG/100 ML Bottle 8.232 MG CONT INF ×2 (14:24→17:54)
--- NOTE | 2018-06-06 14:26 | RAD_ITS ---
STUDY: X-RAY CHEST REASON FOR EXAM: Female, 63 years old. ET tube and OG tube placement TECHNIQUE: Single AP portable view of the chest. COMPARISON: Chest x-ray earlier FINDINGS: ET tube is in place terminating roughly 3.9 cm from the ronal. Enteric tube noted in the stomach. Unchanged diffuse patchy airspace disease bilaterally with bibasilar effusions. Stable remainder of the exam RAD/Chest 1 View (Portable) IMPRESSION: ET tube and enteric tube as above. Stable diffuse patchy airspace disease bilaterally Electronically Signed: Julito Staton DO at 16:32 EDT Tel , Service support ,
--- NOTE | 2018-06-06 14:37 | CHAPLAIN ---
Type of Pastoral Visit ___ Initial Visit _x__ Follow-up Visit ___ On-call Visit ___ General Patient Visit ___ Spiritual Assessment ___ Family Conference ___ Bereavement ___ Rapid Response ___ Code Blue ___ Other (describe below) Pastoral Care Referral From _x__ Patient ___ Family ___ Nurse _x__ Physician ___ Orchestra Conductor ___ Barn Worker ___ Other (describe below) Sacrament/Intervention _x__ Active listening ___ Anointing ___ Uatsdin ___ Bereavement ___ Communion ___ Renetta exploration ___ ___ Life review _x__ Prayer ___ Reconciliation ___ Sacrament of Sick _x__ Supportive presence ___ Wedding ___ Other (describe below) Pastoral Comments second contact made with her anabaptist per patient request; SO is with patient and is calling her son to notify of pt illness while this superintendent greens is present; pt acknowledges that she is in critical condition and needs to make important decisions about her care soon; pt seeks prayer and spiritual care ongoing support; pt verbalizes love toward SO and both are tearful at this time
[2018-06-06 15:51] LABS: Allen Test POS; Base Excess -8 mmol/L (-2 to +2); Bicarbonate 19.4 mmol/L (22-26); Blood Gas Specimen Type ART; FI02 60; Mode A-C; O2 Delivery Device Vent; PEEP 16; PO2 61 mmHG (75-100); RR 16; SITE R Radial; SO2 85 % (95-99); Time Given 1546; Total Carbon Dioxide 21 mmol/L; Vt 400; pCO2 47.7 mmHg (35-45); pH 7.22 (7.35-7.45)
--- NOTE | 2018-06-06 15:53 | CPS ---
Post ABG VORB Dr Weldon increase VT to 450.
--- NOTE | 2018-06-06 16:15 | PCM.PROGNOTE ---
Patient Problems: Active and Suspected Problems Severe sepsis (Acute) Subjective: Patient was seen and examined earlier today, her oxygen requirement increased and her BiPAP had to be readjusted today to maintain her pulse ox, repeat chest x-ray this morning showed increased bilateral infiltrates and obtained a d-dimer that was elevated, I talked to the patient and her significant other and advised that she undergo a CTA of the chest to rule out PE, I told them that there was a risk that her kidneys could be impaired due to the procedure but I felt it was imperative that we know whether she had a PE or not. The CTA did not show a pulmonary embolism but did show diffuse bilateral infiltrates suggestive of either congestive heart failure or ARDS. Patient was transported to the ICU and I talked with her and her significant other about going on the ventilator, patient agreed to this and appointed her significant other medical power of real estate associate attorney. Shortly thereafter, patient was intubated non-emergently and placed on the ventilator. I talked at length with pulmonary medicine about her care today. - Physical Exam General: Alert, Oriented x3, Cooperative, Well developed, - - During my initial evaluation this morning, patient was on BiPAP HEENT: Atraumatic, PERRLA, EOMI, Normocephalic Neck: Supple, Trachea Midline, Thyroid Normal Size and Texture Lungs: Normal air movement, No rhonchi, No wheeze, Rales - Scattered inspiratory rales bilaterally, Short of Breath Cardiovascular: Regular rate, Regular Rhythm, Normal S1, Normal S2, No murmurs, No Ectopic Activity, PMI Normal, No rub noted, No Gallop Abdomen: Bowel Sounds Present, Soft, Non Tender, Non-Distended, Obese Extremities: No clubbing, No cyanosis, No edema, Capillary Refill Less than 3 Seconds Skin: No rashes, No breakdown Musculoskeletal: No Tenderness to Palpation of Joints or Extremities Neurological: Cranial nerves II-XII grossly intact, Neuro grossly intact, Sensory exam intact to light touch and pain, Coordination normal Psych/Mental Status: Normal Affect, Appropriate, Alert and oriented to time, place, person, mood and affect Vital Signs Temp Pulse Resp BP Pulse Ox 99.3 F H 50 L 26 H 151/64 H 88 06/06/18 12:24 06/06/18 14:30 06/06/18 14:30 06/06/18 12:24 06/06/18 15:00 Oxygen Flow Rate (L/min) 15 Oxygen Delivery Method Mechanical Ventilator Weight: 137.2 kg Body Mass Index (BMI) 51.5 Finger Stick Blood Glucose 70 Intake and Output for Last 24 Hours 06/04/18 06/05/18 06/06/18 23:59 23:59 23:59 Intake Total 240 / 240 1094 / 1094 740 / 740 Output Total 1350 / 1350 900 / 900 Balance 240 / 240 -256 / -256 -160 / -160 Microbiology Past 72 Hours 06/04/18 15:15 Blood Culture - Preliminary Blood Culture (Wb) - Right Hand No growth in 48 hours. 06/04/18 12:03 Blood Culture - Preliminary Blood Culture (Wb) - Anticubital Left No growth in 48 hours. 06/05/18 06:20 Respiratory Panel (PCR) - Final Mucosa - Nasopharyngeal 06/05/18 04:54 Legionella Antigen - Final Urine, Clean Catch Laboratory Tests Past 24 Hrs 06/06/18 06/06/18 06/06/18 05:20 05:20 09:07 WBC 11.5 H RBC 2.40 L Hgb 7.3 L Hct 25.2 L MCV 105.0 H MCH 30.4 MCHC 29.0 L RDW 15.0 H RDW Differential 56.0 H Plt Count 249 MPV 9.5 D-Dimer Quant (PE/DVT) Specimen Type ART Sample Site L Radial pH 7.27 L Bicarbonate Actual 20.8 L POC Total CO2 22 Base Excess -6 L O2 Saturation 92 L O2 % 100 ABG pCO2 45.7 H ABG pO2 74 L Lazaro Test POS Respiration Rate O2 Delivery Device Bi / C PAP Minute Volume Vent Mode Tidal Volume POC PEEP EPAP 10 Blood Gas Notified Whom HOSP Blood Gas Notified Time 900 Sodium 136 Potassium 5.4 H Chloride 106 Carbon Dioxide 23.0 Anion Gap 7 BUN 52 H Creatinine 2.86 H Estim Creat Clear Calc 17.88 Est GFR (MDRD) Af Amer 21 L Est GFR (MDRD) Non-Af 18 L BUN/Creatinine Ratio 18.2 Glucose 159 H Calcium 8.2 L 06/06/18 06/06/18 06/06/18 10:10 12:45 15:47 WBC RBC Hgb 7.6 L Hct 25.4 L MCV MCH MCHC RDW RDW Differential Plt Count MPV D-Dimer Quant (PE/DVT) 2.94 H* Specimen Type ART Sample Site R Radial pH 7.22 L Bicarbonate Actual 19.4 L POC Total CO2 21 Base Excess -8 L O2 Saturation 85 L O2 % 60 ABG pCO2 47.7 H ABG pO2 61 L Lazaro Test POS Respiration Rate 16 O2 Delivery Device Vent Minute Volume 10.00 Vent Mode A-C Tidal Volume 400 POC PEEP 16 EPAP Blood Gas Notified Whom ICU Blood Gas Notified Time 1546 Sodium Potassium Chloride Carbon Dioxide Anion Gap BUN Creatinine Estim Creat Clear Calc Est GFR (MDRD) Af Amer Est GFR (MDRD) Non-Af BUN/Creatinine Ratio Glucose Calcium POC Glucose 06/06/18 06/06/18 06/05/18 11:25 07:03 21:03 POC Glucose 170 H 165 H 158 H Medical Necessity - Tobacco Use Smoking Status: Former smoker Tobacco Use: Cigarettes Assessment/Plan All Active Problems Severe sepsis (Acute) Tobacco use disorder (Resolved) Cocaine dependence, episodic (Resolved) #1 acute on chronic combined respiratory failure-secondary to probable ARDS-continue present treatment at this time, again patient was intubated this afternoon, continue IV antibiotics and IV Lasix. #2 acute on chronic diastolic congestive heart failure-continue IV Lasix, monitor renal function #3 pulmonary hypertension #4 type 2 diabetes #5 chronic kidney disease stage III secondary to type 2 diabetes #6 hypertension #7 possible bilateral pneumonia-patient will continue on antibiotic treatment for now Code Visit Inpatient E&M: 36698 [facility] Hosp L3
[2018-06-06 16:36] LABS: Bedside Glucose 241 mg/dL (70-110)
--- NOTE | 2018-06-06 16:36 | EKG12_ITS ---
Test Reason : SB Blood Pressure : / mmHG Vent. Rate : 050 BPM Atrial Rate : 050 BPM P-R Int : 000 ms QRS Dur : 116 ms QT Int : 498 ms P-R-T Axes : 000 065 131 degrees QTc Int : 454 ms Junctional rhythm Nonspecific ST abnormality Abnormal ECG No previous ECGs available Confirmed by KIRK FALK, JEREMY ([id number]), social media editor ROBY ORTIZ ([id number]) on 06/13/2018 3:50:35 PM Referred By: SARAH Confirmed By:JEREMY BRADLEY MD
--- NOTE | 2018-06-06 16:51 | CHAPLAIN ---
Type of Pastoral Visit ___ Initial Visit _x__ Follow-up Visit ___ On-call Visit ___ General Patient Visit ___ Spiritual Assessment ___ Family Conference ___ Bereavement ___ Rapid Response ___ Code Blue ___ Other (describe below) Pastoral Care Referral From ___ Patient _x__ Family _x__ Nurse ___ Physician ___ English Lecturer ___ Impregnator Electrolytic Capacitors ___ Other (describe below) Sacrament/Intervention _x__ Active listening ___ Anointing ___ Anabaptist ___ Bereavement ___ Communion ___ Renetta exploration ___ ___ Life review ___ Prayer ___ Reconciliation ___ Sacrament of Sick _x__ Supportive presence ___ Wedding ___ Other (describe below) Pastoral Comments Time spent with SO in waiting area; walked together back into room after patient was intubated and sedated; brought tank farm attendant into room when he arrived; supportive presence
[2018-06-06 16:54] LABS: CPK Total, Creatine Kinase 234 U/L (26-192); Triglycerides 107 mg/dL
--- NOTE | 2018-06-06 17:07 | NURSING ---
Teaching of pt chronic medical conditions deferred until pt condition less critical
[2018-06-06] MEDS: Insulin Lispro 100 UNIT/ML INSULN.PEN SQ ×2 (17:54→23:54)
[2018-06-06] MEDS: Chlorhexidine 15 ML PO ×2 (17:56→21:14)
[2018-06-06 18:06] LABS: Bedside Glucose 256 mg/dL (70-110)
[2018-06-06] MEDS: Cyclopentolate 1% 2 ML Bottle 1 DRP LEFT EYE (21:16)
[2018-06-06] MEDS: Atorvastatin Calcium 40 MG Tablet PO (21:26)
[2018-06-07] VITALS (51 sets, daily range): BP systolic 82–128; BP diastolic 43–77; PULSE 33–85; RESP 14–24; TEMP 35.4–36.1; O2SAT 88–100
[2018-06-07 00:06] LABS: Bedside Glucose 250 mg/dL (70-110)
[2018-06-07] MEDS: Propofol 10MG/Ml 1,000 MG/100 ML Bottle 8.232 MG CONT INF ×2 (01:55→16:30)
[2018-06-07 03:06] LABS: Absolute Lymphocyte Count 0.57 X10^3/ul (0.83-4.51); Absolute Neutrophil Count 8.8 X10^3/uL (2.0-7.7); Hematocrit 22.7 % (37-47); Hemoglobin 7.3 g/dl (12.0-15.0); Lymphocyte # 0.57 X10^3/ul (4.0); Lymphocyte % 5.9 % (19-41); Mean Corp Hgb Conc 32.2 g/gl (32-36); Mean Corpuscular Volume 99.6 fL (81-99); Mean Platelet Vol. 9.3 fl (6.2-12.0); Monocyte% 3.1 % (0-10); Neutrophil # 8.78 X10^3/uL (2.7-7.7); Neutrophil % 90.9 % (47-70); Platelet Count 210 K/mm3 (150-450); RBC Distribution Width CV 15.3 % (11.6-14.6); RBC Distribution Width SD 55.3 fl (35.1-43.9); Red Blood Count 2.28 M/mm3 (4.2-5.4); White Blood Count 9.7 K/mm3 (4.4-11.0)
[2018-06-07 03:10] LABS: Anion Gap 7 (5-15); BUN 74 mg/dL (7-18); BUN/Creat Ratio 19.1 RATIO (10-20); Chloride 105 mmol/L (98-107); Creatinine, Serum 3.87 mg/dL (0.55-1.02); EST Glomerular Filtration Rate 12 mL/min (>60); Est Glom Filt Rate - Afr Amer 15 mL/min (>60); Estimated Creatinine Clearance 13.21 ml/min; Glucose 259 mg/dL (74-106); Potassium 5.9 mmol/L (3.5-5.1); Sodium Level 135 mmol/L (136-145)
[2018-06-07 03:22] LABS: Differential Indicated SCAN CRITERIA MET; POSITIVE COUNT NO; POSITIVE DIFFERENTIAL YES; POSITIVE MORPHOLOGY NO
[2018-06-07 03:23] LABS: Anisocytosis RARE; Hypochromasia RARE; Platelet Estimate ADEQUATE (ADEQ); Polychromasia RARE
[2018-06-07 05:26] LABS: Base Excess -8 mmol/L (-2 to +2); Blood Gas Specimen Type ART; FI02 70; Mode A-C; O2 Delivery Device Vent; PEEP 16; PO2 103 mmHG (75-100); RR 16; SITE R Radial; SO2 96 % (95-99); Time Given 515; Total Carbon Dioxide 21 mmol/L; Vt 450; pCO2 48.8 mmHg (35-45); pH 7.22 (7.35-7.45)
[2018-06-07] MEDS: Enoxaparin 30 MG/0.3 ML Syringe SC (06:15)
[2018-06-07] MEDS: CHLORHEXIDINE GLUC 2% CLOTH 1 EACH TOWELETTE TOPICAL (06:15)
[2018-06-07] MEDS: Insulin Lispro 100 UNIT/ML INSULN.PEN SQ ×3 (06:18→18:12)
[2018-06-07 06:36] LABS: Bedside Glucose 253 mg/dL (70-110)
[2018-06-07] MEDS: Ipratropium/Albuterol Sulfate 3 ML AMPUL.NEB INHALATION ×3 (06:51→18:03)
--- NOTE | 2018-06-07 07:18 | PCM.PN.INT ---
Subjective: Patient did okay overnight. Patient continues to have marginal urine output and fever overnight. Patient's oxygenation remains very tenuous and patient desaturates quickly with drop in FiO2. Patient has had some issues with bradycardia associated with junctional rhythm by EKG. diuretics did have to be held overnight secondary to hypotension. General: - - RASS -1. Fair vent synchrony. Some coughing. Morbidly obese. HEENT: Atraumatic, PERRLA, EOMI, Normocephalic, - - Scleral injection without icterus Oral: Moist Mucosa, No Gingival or Mucosal Lesions/ Ulcerations Neck: Supple, No JVD, No Nodes, Trachea Midline, - - Difficult to assess JVD secondary to body habitus Lungs: No wheeze, No rales, Diminished, Rhonchi, - - Symmetric expansion. No dullness to percussion. Cardiovascular: Normal S1, Normal S2, No murmurs, Bradycardic, No rub noted, No Gallop Abdomen: Bowel Sounds Present, Soft, Non Tender, Non-Distended, Obese Extremities: No clubbing, No cyanosis, Edema Skin: No rashes, No breakdown Musculoskeletal: No Tenderness to Palpation of Joints or Extremities Lymphatic: No Cervical, Supraclavicular, or Inguinal Adenopathy Neurological: Cranial nerves II-XII grossly intact, Neuro grossly intact Psych/Mental Status: Flat Affect, Restless Vital Signs Temp Pulse Resp BP Pulse Ox 35.8 C L 40 L 16 93/50 L 99 06/07/18 04:00 06/07/18 06:00 06/07/18 06:00 06/07/18 06:00 06/07/18 06:00 Oxygen Flow Rate (L/min) 15 Oxygen Delivery Method Mechanical Ventilator Weight: 135.8 kg Body Mass Index (BMI) 51.5 Finger Stick Blood Glucose 70 Intake and Output for Last 24 Hours 06/05/18 06/06/18 06/07/18 23:59 23:59 23:59 Intake Total 1094 / 1094 1078.9 / 1078.9 79.1 / 79.1 Output Total 1350 / 1350 2100 / 2100 100 / 100 Balance -256 / -256 -1021.1 / -1021.1 -20.9 / -20.9 Labs (Last 48 Hours) 06/05/18 06/05/18 06/05/18 05:20 06:43 08:14 WBC RBC Hgb Hct MCV MCH MCHC RDW RDW Differential Plt Count MPV Immature Gran % (Auto) Neut % (Auto) Lymph % (Auto) Izard % (Auto) Eos % (Auto) Baso % (Auto) Absolute Neuts (auto) Absolute Lymphs (auto) Total Counted Differential Comment Platelet Estimate Polychromasia Hypochromasia Anisocytosis D-Dimer Quant (PE/DVT) Specimen Type ART Sample Site L Radial pH 7.24 L Bicarbonate Actual 20.1 L POC Total CO2 22 Base Excess -7 L O2 Saturation 62 L O2 % ABG pCO2 47.0 H ABG pO2 38 L* Lazaro Test POS Respiration Rate O2 Delivery Device NRB Mask Liter Flow 15.0 Minute Volume Vent Mode Tidal Volume POC PEEP EPAP Blood Gas Notified Whom [facility] Blood Gas Notified Time 755 Sodium Potassium Chloride Carbon Dioxide Anion Gap BUN Creatinine Estim Creat Clear Calc Est GFR (MDRD) Af Amer Est GFR (MDRD) Non-Af BUN/Creatinine Ratio Glucose Hemoglobin A1c 6.1 Calcium Total Creatine Kinase Triglycerides POC Glucose 180 H 06/05/18 06/05/18 06/05/18 10:18 10:37 15:43 WBC RBC Hgb Hct MCV MCH MCHC RDW RDW Differential Plt Count MPV Immature Gran % (Auto) Neut % (Auto) Lymph % (Auto) Izard % (Auto) Eos % (Auto) Baso % (Auto) Absolute Neuts (auto) Absolute Lymphs (auto) Total Counted Differential Comment Platelet Estimate Polychromasia Hypochromasia Anisocytosis D-Dimer Quant (PE/DVT) Specimen Type ART Sample Site L Radial pH 7.29 L Bicarbonate Actual 20.1 L POC Total CO2 21 Base Excess -6 L O2 Saturation 97 O2 % 100 ABG pCO2 42.0 ABG pO2 102 H Lazaro Test POS Respiration Rate 12 O2 Delivery Device Bi / C PAP Liter Flow Minute Volume Vent Mode Tidal Volume POC PEEP EPAP 10 Blood Gas Notified Whom [facility] Blood Gas Notified Time 1010 Sodium Potassium Chloride Carbon Dioxide Anion Gap BUN Creatinine Estim Creat Clear Calc Est GFR (MDRD) Af Amer Est GFR (MDRD) Non-Af BUN/Creatinine Ratio Glucose Hemoglobin A1c Calcium Total Creatine Kinase Triglycerides POC Glucose 179 H 128 H 06/05/18 06/06/18 06/06/18 21:03 05:20 05:20 WBC 11.5 H RBC 2.40 L Hgb 7.3 L Hct 25.2 L MCV 105.0 H MCH 30.4 MCHC 29.0 L RDW 15.0 H RDW Differential 56.0 H Plt Count 249 MPV 9.5 Immature Gran % (Auto) Neut % (Auto) Lymph % (Auto) Izard % (Auto) Eos % (Auto) Baso % (Auto) Absolute Neuts (auto) Absolute Lymphs (auto) Total Counted Differential Comment Platelet Estimate Polychromasia Hypochromasia Anisocytosis D-Dimer Quant (PE/DVT) Specimen Type Sample Site pH Bicarbonate Actual POC Total CO2 Base Excess O2 Saturation O2 % ABG pCO2 ABG pO2 Lazaro Test Respiration Rate O2 Delivery Device Liter Flow Minute Volume Vent Mode Tidal Volume POC PEEP EPAP Blood Gas Notified Whom Blood Gas Notified Time Sodium 136 Potassium 5.4 H Chloride 106 Carbon Dioxide 23.0 Anion Gap 7 BUN 52 H Creatinine 2.86 H Estim Creat Clear Calc 17.88 Est GFR (MDRD) Af Amer 21 L Est GFR (MDRD) Non-Af 18 L BUN/Creatinine Ratio 18.2 Glucose 159 H Hemoglobin A1c Calcium 8.2 L Total Creatine Kinase Triglycerides POC Glucose 158 H 06/06/18 06/06/18 06/06/18 05:20 07:03 09:07 WBC RBC Hgb Hct MCV MCH MCHC RDW RDW Differential Plt Count MPV Immature Gran % (Auto) Neut % (Auto) Lymph % (Auto) Izard % (Auto) Eos % (Auto) Baso % (Auto) Absolute Neuts (auto) Absolute Lymphs (auto) Total Counted Differential Comment Platelet Estimate Polychromasia Hypochromasia Anisocytosis D-Dimer Quant (PE/DVT) Specimen Type ART Sample Site L Radial pH 7.27 L Bicarbonate Actual 20.8 L POC Total CO2 22 Base Excess -6 L O2 Saturation 92 L O2 % 100 ABG pCO2 45.7 H ABG pO2 74 L Lazaro Test POS Respiration Rate O2 Delivery Device Bi / C PAP Liter Flow Minute Volume Vent Mode Tidal Volume POC PEEP EPAP 10 Blood Gas Notified Whom [facility] Blood Gas Notified Time 900 Sodium Potassium Chloride Carbon Dioxide Anion Gap BUN Creatinine Estim Creat Clear Calc Est GFR (MDRD) Af Amer Est GFR (MDRD) Non-Af BUN/Creatinine Ratio Glucose Hemoglobin A1c Calcium Total Creatine Kinase 234 H Triglycerides 107 POC Glucose 165 H 06/06/18 06/06/18 06/06/18 10:10 11:25 12:45 WBC RBC Hgb 7.6 L Hct 25.4 L MCV MCH MCHC RDW RDW Differential Plt Count MPV Immature Gran % (Auto) Neut % (Auto) Lymph % (Auto) Izard % (Auto) Eos % (Auto) Baso % (Auto) Absolute Neuts (auto) Absolute Lymphs (auto) Total Counted Differential Comment Platelet Estimate Polychromasia Hypochromasia Anisocytosis D-Dimer Quant (PE/DVT) 2.94 H* Specimen Type Sample Site pH Bicarbonate Actual POC Total CO2 Base Excess O2 Saturation O2 % ABG pCO2 ABG pO2 Lazaro Test Respiration Rate O2 Delivery Device Liter Flow Minute Volume Vent Mode Tidal Volume POC PEEP EPAP Blood Gas Notified Whom Blood Gas Notified Time Sodium Potassium Chloride Carbon Dioxide Anion Gap BUN Creatinine Estim Creat Clear Calc Est GFR (MDRD) Af Amer Est GFR (MDRD) Non-Af BUN/Creatinine Ratio Glucose Hemoglobin A1c Calcium Total Creatine Kinase Triglycerides POC Glucose 170 H 06/06/18 06/06/18 06/06/18 15:28 15:47 17:51 WBC RBC Hgb Hct MCV MCH MCHC RDW RDW Differential Plt Count MPV Immature Gran % (Auto) Neut % (Auto) Lymph % (Auto) Izard % (Auto) Eos % (Auto) Baso % (Auto) Absolute Neuts (auto) Absolute Lymphs (auto) Total Counted Differential Comment Platelet Estimate Polychromasia Hypochromasia Anisocytosis D-Dimer Quant (PE/DVT) Specimen Type ART Sample Site R Radial pH 7.22 L Bicarbonate Actual 19.4 L POC Total CO2 21 Base Excess -8 L O2 Saturation 85 L O2 % 60 ABG pCO2 47.7 H ABG pO2 61 L Lazaro Test POS Respiration Rate 16 O2 Delivery Device Vent Liter Flow Minute Volume 10.00 Vent Mode A-C Tidal Volume 400 POC PEEP 16 EPAP Blood Gas Notified Whom ICU MD Blood Gas Notified Time 1546 Sodium Potassium Chloride Carbon Dioxide Anion Gap BUN Creatinine Estim Creat Clear Calc Est GFR (MDRD) Af Amer Est GFR (MDRD) Non-Af BUN/Creatinine Ratio Glucose Hemoglobin A1c Calcium Total Creatine Kinase Triglycerides POC Glucose 241 H 256 H 06/06/18 06/07/18 06/07/18 23:53 02:50 02:50 WBC 9.7 RBC 2.28 L Hgb 7.3 L Hct 22.7 L MCV 99.6 H MCH 32.0 MCHC 32.2 RDW 15.3 H RDW Differential 55.3 H Plt Count 210 MPV 9.3 Immature Gran % (Auto) 0.100 Neut % (Auto) 90.9 H Lymph % (Auto) 5.9 L Izard % (Auto) 3.1 Eos % (Auto) 0.0 Baso % (Auto) 0.0 Absolute Neuts (auto) 8.8 H Absolute Lymphs (auto) 0.57 L Total Counted Not Reportable Differential Comment Platelet Estimate ADEQUATE Polychromasia RARE Hypochromasia RARE Anisocytosis RARE D-Dimer Quant (PE/DVT) Specimen Type Sample Site pH Bicarbonate Actual POC Total CO2 Base Excess O2 Saturation O2 % ABG pCO2 ABG pO2 Lazaro Test Respiration Rate O2 Delivery Device Liter Flow Minute Volume Vent Mode Tidal Volume POC PEEP EPAP Blood Gas Notified Whom Blood Gas Notified Time Sodium 135 L Potassium 5.9 H Chloride 105 Carbon Dioxide 23.0 Anion Gap 7 BUN 74 H Creatinine 3.87 H Estim Creat Clear Calc 13.21 Est GFR (MDRD) Af Amer 15 L Est GFR (MDRD) Non-Af 12 L BUN/Creatinine Ratio 19.1 Glucose 259 H Hemoglobin A1c Calcium 8.0 L Total Creatine Kinase Triglycerides POC Glucose 250 H 06/07/18 06/07/18 05:21 06:17 WBC RBC Hgb Hct MCV MCH MCHC RDW RDW Differential Plt Count MPV Immature Gran % (Auto) Neut % (Auto) Lymph % (Auto) Izard % (Auto) Eos % (Auto) Baso % (Auto) Absolute Neuts (auto) Absolute Lymphs (auto) Total Counted Differential Comment Platelet Estimate Polychromasia Hypochromasia Anisocytosis D-Dimer Quant (PE/DVT) Specimen Type ART Sample Site R Radial pH 7.22 L Bicarbonate Actual 20.0 L POC Total CO2 21 Base Excess -8 L O2 Saturation 96 O2 % 70 ABG pCO2 48.8 H ABG pO2 103 H Lazaro Test Respiration Rate 16 O2 Delivery Device Vent Liter Flow Minute Volume 8.00 Vent Mode A-C Tidal Volume 450 POC PEEP 16 EPAP Blood Gas Notified Whom ICU MD Blood Gas Notified Time 515 Sodium Potassium Chloride Carbon Dioxide Anion Gap BUN Creatinine Estim Creat Clear Calc Est GFR (MDRD) Af Amer Est GFR (MDRD) Non-Af BUN/Creatinine Ratio Glucose Hemoglobin A1c Calcium Total Creatine Kinase Triglycerides POC Glucose 253 H Microbiology 06/04/18 15:15 Blood Culture (Wb) - Right Hand Blood Culture - Preliminary No growth in 48 hours. 06/04/18 12:03 Blood Culture (Wb) - Anticubital Left Blood Culture - Preliminary No growth in 48 hours. 06/05/18 06:20 Mucosa - Nasopharyngeal Respiratory Panel (PCR) - Final 06/05/18 04:54 Urine, Clean Catch Legionella Antigen - Final Clinical Impression(s) from Imaging Studies Chest X-Ray 06/06/18 08:50 IMPRESSION: Increased diffuse bilateral pulmonary interstitial lung markings and alveolar disease, this may represent increasing pulmonary edema and/or worsening pneumonia. There is suggestion of small bilateral pleural effusions. Electronically Signed: Carmen Price, at 9:34 EDT Tel , Service support , Chest CTA 06/06/18 10:50 IMPRESSION: No demonstrated pulmonary embolism or arterial dissection. Worsening bilateral pneumonia or ARDS. Electronically Signed: Karena Hawk, at 12:33 EDT Tel , Service support , Chest X-Ray 06/06/18 14:26 IMPRESSION: ET tube and enteric tube as above. Stable diffuse patchy airspace disease bilaterally Electronically Signed: Julito Staton DO at 16:32 EDT Tel , Service support , Medical Necessity - Tobacco Use Smoking Status: Former smoker Tobacco Use: Cigarettes Assessment/Plan All Active Problems Severe sepsis (Acute) Tobacco use disorder (Resolved) Cocaine dependence, episodic (Resolved) RECOMMENDATIONS: 1. Continue to wean PEEP as tolerated once FiO2 less than 60 2. Consult renal, possible hemodialysis 3. Possible transition APRV 4. Continue antibiotics, steroids and mucolytic 5. Initiate tube feeds IMPRESSIONS: 1. Acute on chronic combined respiratory failure with possible ARDS Unclear etiology at this time. Patient has not responded to diuretic therapy. Patient does have moderate pulmonary hypertension, pulmonary fibrosis and diastolic congestive heart failure. Patient's OFEV has been on hold. It is unlikely this is going to make an acute difference. Patient does appear to be in ARDS. High PEEP requirements. Will hold on APRV secondary to significant combined acidosis. 2. Acute on chronic diastolic congestive heart failure versus cor pulmonale Patient has been receiving diuretic therapy secondary to a mildly elevated BNP. Given apical predominance, there is lower clinical suspicion for a predominant congestive heart failure component. We will continue to monitor. Troponins have been negative. 3. Diabetes mellitus type 2 Patient will be initiated on tube feeds. We will need to watch blood sugars closely given concomitant steroid therapy. Sliding scale insulin has been ordered. We will hold off on basal insulin until trend is notable. 4. Oliguric acute renal failure Patient with significant acidosis and hyperkalemia with decreasing urine output. Will consult renal. Patient may require central line and hemodialysis line today. Await input 5. Morbid obesity/CKD stage III/hypertension/hyperlipidemia/depression/GERD/history of smoking Complicates care, management, recovery and prognosis. Okay to continue with baseline medications for now. May need to make alterations following placement of OG. TIME: 37 minutes of critical care time spent addressing patient's acute on chronic respiratory failure, congestive heart failure, ARDS, clarification of CODE STATUS, review of all data and collaboration with care team (6 AM to 7:30 AM) Code Visit 9xxxx: [id number] Critical care first hour
--- NOTE | 2018-06-07 07:28 | PN_ITS ---
Subjective: Patient did okay overnight. Patient continues to have marginal urine output and fever overnight. Patient's oxygenation remains very tenuous and patient desaturates quickly with drop in FiO2. Patient has had some issues with bradycardia associated with junctional rhythm by EKG. diuretics did have to be held overnight secondary to hypotension. General: - - RASS -1. Fair vent synchrony. Some coughing. Morbidly obese. HEENT: Atraumatic, PERRLA, EOMI, Normocephalic, - - Scleral injection without icterus Oral: Moist Mucosa, No Gingival or Mucosal Lesions/ Ulcerations Neck: Supple, No JVD, No Nodes, Trachea Midline, - - Difficult to assess JVD secondary to body habitus Lungs: No wheeze, No rales, Diminished, Rhonchi, - - Symmetric expansion. No dullness to percussion. Cardiovascular: Normal S1, Normal S2, No murmurs, Bradycardic, No rub noted, No Gallop Abdomen: Bowel Sounds Present, Soft, Non Tender, Non-Distended, Obese Extremities: No clubbing, No cyanosis, Edema Skin: No rashes, No breakdown Musculoskeletal: No Tenderness to Palpation of Joints or Extremities Lymphatic: No Cervical, Supraclavicular, or Inguinal Adenopathy Neurological: Cranial nerves II-XII grossly intact, Neuro grossly intact Psych/Mental Status: Flat Affect, Restless Vital Signs Temp Pulse Resp BP Pulse Ox 35.8 C L 40 L 16 93/50 L 99 06/07/18 04:00 06/07/18 06:00 06/07/18 06:00 06/07/18 06:00 06/07/18 06:00 Oxygen Flow Rate (L/min) 15 Oxygen Delivery Method Mechanical Ventilator Weight: 135.8 kg Body Mass Index (BMI) 51.5 Finger Stick Blood Glucose 70 Intake and Output for Last 24 Hours 06/05/18 06/06/18 06/07/18 23:59 23:59 23:59 Intake Total 1094 / 1094 1078.9 / 1078.9 79.1 / 79.1 Output Total 1350 / 1350 2100 / 2100 100 / 100 Balance -256 / -256 -1021.1 / -1021.1 -20.9 / -20.9 Labs (Last 48 Hours) 06/05/18 06/05/18 06/05/18 05:20 06:43 08:14 WBC RBC Hgb Hct MCV MCH MCHC RDW RDW Differential Plt Count MPV Immature Gran % (Auto) Neut % (Auto) Lymph % (Auto) [place] % (Auto) Eos % (Auto) Baso % (Auto) Absolute Neuts (auto) Absolute Lymphs (auto) Total Counted Differential Comment Platelet Estimate Polychromasia Hypochromasia Anisocytosis D-Dimer Quant (PE/DVT) Specimen Type ART Sample Site L Radial pH 7.24 L Bicarbonate Actual 20.1 L POC Total CO2 22 Base Excess -7 L O2 Saturation 62 L O2 % ABG pCO2 47.0 H ABG pO2 38 L* Lazaro Test POS Respiration Rate O2 Delivery Device NRB Mask Liter Flow 15.0 Minute Volume Vent Mode Tidal Volume POC PEEP EPAP Blood Gas Notified Whom [facility] Blood Gas Notified Time 755 Sodium Potassium Chloride Carbon Dioxide Anion Gap BUN Creatinine Estim Creat Clear Calc Est GFR (MDRD) Af Amer Est GFR (MDRD) Non-Af BUN/Creatinine Ratio Glucose Hemoglobin A1c 6.1 Calcium Total Creatine Kinase Triglycerides POC Glucose 180 H 06/05/18 06/05/18 06/05/18 10:18 10:37 15:43 WBC RBC Hgb Hct MCV MCH MCHC RDW RDW Differential Plt Count MPV Immature Gran % (Auto) Neut % (Auto) Lymph % (Auto) [place] % (Auto) Eos % (Auto) Baso % (Auto) Absolute Neuts (auto) Absolute Lymphs (auto) Total Counted Differential Comment Platelet Estimate Polychromasia Hypochromasia Anisocytosis D-Dimer Quant (PE/DVT) Specimen Type ART Sample Site L Radial pH 7.29 L Bicarbonate Actual 20.1 L POC Total CO2 21 Base Excess -6 L O2 Saturation 97 O2 % 100 ABG pCO2 42.0 ABG pO2 102 H Lazaro Test POS Respiration Rate 12 O2 Delivery Device Bi / C PAP Liter Flow Minute Volume Vent Mode Tidal Volume POC PEEP EPAP 10 Blood Gas Notified Whom [facility] Blood Gas Notified Time 1010 Sodium Potassium Chloride Carbon Dioxide Anion Gap BUN Creatinine Estim Creat Clear Calc Est GFR (MDRD) Af Amer Est GFR (MDRD) Non-Af BUN/Creatinine Ratio Glucose Hemoglobin A1c Calcium Total Creatine Kinase Triglycerides POC Glucose 179 H 128 H 06/05/18 06/06/18 06/06/18 21:03 05:20 05:20 WBC 11.5 H RBC 2.40 L Hgb 7.3 L Hct 25.2 L MCV 105.0 H MCH 30.4 MCHC 29.0 L RDW 15.0 H RDW Differential 56.0 H Plt Count 249 MPV 9.5 Immature Gran % (Auto) Neut % (Auto) Lymph % (Auto) [place] % (Auto) Eos % (Auto) Baso % (Auto) Absolute Neuts (auto) Absolute Lymphs (auto) Total Counted Differential Comment Platelet Estimate Polychromasia Hypochromasia Anisocytosis D-Dimer Quant (PE/DVT) Specimen Type Sample Site pH Bicarbonate Actual POC Total CO2 Base Excess O2 Saturation O2 % ABG pCO2 ABG pO2 Lazaro Test Respiration Rate O2 Delivery Device Liter Flow Minute Volume Vent Mode Tidal Volume POC PEEP EPAP Blood Gas Notified Whom Blood Gas Notified Time Sodium 136 Potassium 5.4 H Chloride 106 Carbon Dioxide 23.0 Anion Gap 7 BUN 52 H Creatinine 2.86 H Estim Creat Clear Calc 17.88 Est GFR (MDRD) Af Amer 21 L Est GFR (MDRD) Non-Af 18 L BUN/Creatinine Ratio 18.2 Glucose 159 H Hemoglobin A1c Calcium 8.2 L Total Creatine Kinase Triglycerides POC Glucose 158 H 06/06/18 06/06/18 06/06/18 05:20 07:03 09:07 WBC RBC Hgb Hct MCV MCH MCHC RDW RDW Differential Plt Count MPV Immature Gran % (Auto) Neut % (Auto) Lymph % (Auto) [place] % (Auto) Eos % (Auto) Baso % (Auto) Absolute Neuts (auto) Absolute Lymphs (auto) Total Counted Differential Comment Platelet Estimate Polychromasia Hypochromasia Anisocytosis D-Dimer Quant (PE/DVT) Specimen Type ART Sample Site L Radial pH 7.27 L Bicarbonate Actual 20.8 L POC Total CO2 22 Base Excess -6 L O2 Saturation 92 L O2 % 100 ABG pCO2 45.7 H ABG pO2 74 L Lazaro Test POS Respiration Rate O2 Delivery Device Bi / C PAP Liter Flow Minute Volume Vent Mode Tidal Volume POC PEEP EPAP 10 Blood Gas Notified Whom [facility] Blood Gas Notified Time 900 Sodium Potassium Chloride Carbon Dioxide Anion Gap BUN Creatinine Estim Creat Clear Calc Est GFR (MDRD) Af Amer Est GFR (MDRD) Non-Af BUN/Creatinine Ratio Glucose Hemoglobin A1c Calcium Total Creatine Kinase 234 H Triglycerides 107 POC Glucose 165 H 06/06/18 06/06/18 06/06/18 10:10 11:25 12:45 WBC RBC Hgb 7.6 L Hct 25.4 L MCV MCH MCHC RDW RDW Differential Plt Count MPV Immature Gran % (Auto) Neut % (Auto) Lymph % (Auto) [place] % (Auto) Eos % (Auto) Baso % (Auto) Absolute Neuts (auto) Absolute Lymphs (auto) Total Counted Differential Comment Platelet Estimate Polychromasia Hypochromasia Anisocytosis D-Dimer Quant (PE/DVT) 2.94 H* Specimen Type Sample Site pH Bicarbonate Actual POC Total CO2 Base Excess O2 Saturation O2 % ABG pCO2 ABG pO2 Lazaro Test Respiration Rate O2 Delivery Device Liter Flow Minute Volume Vent Mode Tidal Volume POC PEEP EPAP Blood Gas Notified Whom Blood Gas Notified Time Sodium Potassium Chloride Carbon Dioxide Anion Gap BUN Creatinine Estim Creat Clear Calc Est GFR (MDRD) Af Amer Est GFR (MDRD) Non-Af BUN/Creatinine Ratio Glucose Hemoglobin A1c Calcium Total Creatine Kinase Triglycerides POC Glucose 170 H 06/06/18 06/06/18 06/06/18 15:28 15:47 17:51 WBC RBC Hgb Hct MCV MCH MCHC RDW RDW Differential Plt Count MPV Immature Gran % (Auto) Neut % (Auto) Lymph % (Auto) [place] % (Auto) Eos % (Auto) Baso % (Auto) Absolute Neuts (auto) Absolute Lymphs (auto) Total Counted Differential Comment Platelet Estimate Polychromasia Hypochromasia Anisocytosis D-Dimer Quant (PE/DVT) Specimen Type ART Sample Site R Radial pH 7.22 L Bicarbonate Actual 19.4 L POC Total CO2 21 Base Excess -8 L O2 Saturation 85 L O2 % 60 ABG pCO2 47.7 H ABG pO2 61 L Lazaro Test POS Respiration Rate 16 O2 Delivery Device Vent Liter Flow Minute Volume 10.00 Vent Mode A-C Tidal Volume 400 POC PEEP 16 EPAP Blood Gas Notified Whom ICU MD Blood Gas Notified Time 1546 Sodium Potassium Chloride Carbon Dioxide Anion Gap BUN Creatinine Estim Creat Clear Calc Est GFR (MDRD) Af Amer Est GFR (MDRD) Non-Af BUN/Creatinine Ratio Glucose Hemoglobin A1c Calcium Total Creatine Kinase Triglycerides POC Glucose 241 H 256 H 06/06/18 06/07/18 06/07/18 23:53 02:50 02:50 WBC 9.7 RBC 2.28 L Hgb 7.3 L Hct 22.7 L MCV 99.6 H MCH 32.0 MCHC 32.2 RDW 15.3 H RDW Differential 55.3 H Plt Count 210 MPV 9.3 Immature Gran % (Auto) 0.100 Neut % (Auto) 90.9 H Lymph % (Auto) 5.9 L [place] % (Auto) 3.1 Eos % (Auto) 0.0 Baso % (Auto) 0.0 Absolute Neuts (auto) 8.8 H Absolute Lymphs (auto) 0.57 L Total Counted Not Reportable Differential Comment Platelet Estimate ADEQUATE Polychromasia RARE Hypochromasia RARE Anisocytosis RARE D-Dimer Quant (PE/DVT) Specimen Type Sample Site pH Bicarbonate Actual POC Total CO2 Base Excess O2 Saturation O2 % ABG pCO2 ABG pO2 Lazaro Test Respiration Rate O2 Delivery Device Liter Flow Minute Volume Vent Mode Tidal Volume POC PEEP EPAP Blood Gas Notified Whom Blood Gas Notified Time Sodium 135 L Potassium 5.9 H Chloride 105 Carbon Dioxide 23.0 Anion Gap 7 BUN 74 H Creatinine 3.87 H Estim Creat Clear Calc 13.21 Est GFR (MDRD) Af Amer 15 L Est GFR (MDRD) Non-Af 12 L BUN/Creatinine Ratio 19.1 Glucose 259 H Hemoglobin A1c Calcium 8.0 L Total Creatine Kinase Triglycerides POC Glucose 250 H 06/07/18 06/07/18 05:21 06:17 WBC RBC Hgb Hct MCV MCH MCHC RDW RDW Differential Plt Count MPV Immature Gran % (Auto) Neut % (Auto) Lymph % (Auto) [place] % (Auto) Eos % (Auto) Baso % (Auto) Absolute Neuts (auto) Absolute Lymphs (auto) Total Counted Differential Comment Platelet Estimate Polychromasia Hypochromasia Anisocytosis D-Dimer Quant (PE/DVT) Specimen Type ART Sample Site R Radial pH 7.22 L Bicarbonate Actual 20.0 L POC Total CO2 21 Base Excess -8 L O2 Saturation 96 O2 % 70 ABG pCO2 48.8 H ABG pO2 103 H Lazaro Test Respiration Rate 16 O2 Delivery Device Vent Liter Flow Minute Volume 8.00 Vent Mode A-C Tidal Volume 450 POC PEEP 16 EPAP Blood Gas Notified Whom ICU MD Blood Gas Notified Time 515 Sodium Potassium Chloride Carbon Dioxide Anion Gap BUN Creatinine Estim Creat Clear Calc Est GFR (MDRD) Af Amer Est GFR (MDRD) Non-Af BUN/Creatinine Ratio Glucose Hemoglobin A1c Calcium Total Creatine Kinase Triglycerides POC Glucose 253 H Microbiology 06/04/18 15:15 Blood Culture (Wb) - Right Hand Blood Culture - Preliminary No growth in 48 hours. 06/04/18 12:03 Blood Culture (Wb) - Anticubital Left Blood Culture - Preliminary No growth in 48 hours. 06/05/18 06:20 Mucosa - Nasopharyngeal Respiratory Panel (PCR) - Final 06/05/18 04:54 Urine, Clean Catch Legionella Antigen - Final Clinical Impression(s) from Imaging Studies Chest X-Ray 06/06/18 08:50 IMPRESSION: Increased diffuse bilateral pulmonary interstitial lung markings and alveolar disease, this may represent increasing pulmonary edema and/or worsening pneumonia. There is suggestion of small bilateral pleural effusions. Electronically Signed: Carmen Price, at 9:34 EDT Tel , Service support , Chest CTA 06/06/18 10:50 IMPRESSION: No demonstrated pulmonary embolism or arterial dissection. Worsening bilateral pneumonia or ARDS. Electronically Signed: Karena Hawk, at 12:33 EDT Tel , Service support , Chest X-Ray 06/06/18 14:26 IMPRESSION: ET tube and enteric tube as above. Stable diffuse patchy airspace disease bilaterally Electronically Signed: Julito Staton DO at 16:32 EDT Tel , Service support , Medical Necessity - Tobacco Use Smoking Status: Former smoker Tobacco Use: Cigarettes Assessment/Plan All Active Problems Severe sepsis (Acute) Tobacco use disorder (Resolved) Cocaine dependence, episodic (Resolved) RECOMMENDATIONS: 1. Continue to wean PEEP as tolerated once FiO2 less than 60 2. Consult renal, possible hemodialysis 3. Possible transition APRV 4. Continue antibiotics, steroids and mucolytic 5. Initiate tube feeds IMPRESSIONS: 1. Acute on chronic combined respiratory failure with possible ARDS Unclear etiology at this time. Patient has not responded to diuretic therapy. Patient does have moderate pulmonary hypertension, pulmonary fibrosis and diastolic congestive heart failure. Patient's OFEV has been on hold. It is unlikely this is going to make an acute difference. Patient does appear to be in ARDS. High PEEP requirements. Will hold on APRV secondary to significant combined acidosis. 2. Acute on chronic diastolic congestive heart failure versus cor pulmonale Patient has been receiving diuretic therapy secondary to a mildly elevated BNP. Given apical predominance, there is lower clinical suspicion for a predominant congestive heart failure component. We will continue to monitor. Troponins have been negative. 3. Diabetes mellitus type 2 Patient will be initiated on tube feeds. We will need to watch blood sugars closely given concomitant steroid therapy. Sliding scale insulin has been ordered. We will hold off on basal insulin until trend is notable. 4. Oliguric acute renal failure Patient with significant acidosis and hyperkalemia with decreasing urine output. Will consult renal. Patient may require central line and hemodialysis line today. Await input 5. Morbid obesity/CKD stage III/hypertension/hyperlipidemia/depression/GERD/history of smoking Complicates care, management, recovery and prognosis. Okay to continue with baseline medications for now. May need to make alterations following placement of OG. TIME: 37 minutes of critical care time spent addressing patient's acute on chronic respiratory failure, congestive heart failure, ARDS, clarification of CODE STATUS, review of all data and collaboration with care team (6 AM to 7:30 AM) Code Visit 9xxxx: [id number] Critical care first hour
[2018-06-07] MEDS: Citalopram 40 MG TABLET GT (08:43)
[2018-06-07] MEDS: Chlorhexidine 15 ML PO ×2 (08:43→22:20)
[2018-06-07] MEDS: Gabapentin 300 MG Capsule GT ×2 (08:44→22:18)
[2018-06-07] MEDS: Losartan Potassium 100 MG Tablet GT (08:44)
[2018-06-07] MEDS: Glycerin/Hypromellose/PEG400 15 ml Bottle 1 DRP RIGHT EYE ×2 (09:51→22:19)
[2018-06-07] MEDS: prednisoLONE eye drops (5 mL) 1 DROP OPTH.BTL 2 DRP LEFT EYE (09:51)
[2018-06-07] MEDS: fentaNYL drip 100 ML 5 MCG IV ×2 (09:52→16:35)
--- NOTE | 2018-06-07 10:02 | CASEMGMT ---
SAVANNAH PAULA Note: Call received from francis, child care coordinator for Pablo Nieves who she stated pt is POA for. She wished to facilitate phone call between patient and Pablo. SAVANNAH PAULA requested to call Pablo back as ICU rounds were in progress. . Call returned to Pablo. SAVANNAH PAULA let him know pt is unable to accept phone call at this time and medical information cannot be given. Pablo stated understanding, states pt is his POA for financial and he has known her for 24 years. SAVANNAH PAULA suggested he call back to hospital in a day or two and if pt is able to speak on phone he can then talk with her. Pablo stated he will do this. Harrison RUIZN RN ACM
[2018-06-07 10:48] LABS: International Normalized Ratio 1.6; Prothrombin Time (Protime)PT. 18.5 SECONDS (11.7-14.9)
[2018-06-07 10:49] LABS: Partial Thromboplast Time 35.1 Seconds (24.1-36.2)
--- NOTE | 2018-06-07 12:41 | CHAPLAIN ---
Type of Pastoral Visit ___ Initial Visit _x__ Follow-up Visit ___ On-call Visit ___ General Patient Visit ___ Spiritual Assessment ___ Family Conference ___ Bereavement ___ Rapid Response ___ Code Blue ___ Other (describe below) Pastoral Care Referral From _x__ Patient _x__ Family ___ Nurse ___ Physician ___ Sap Basis ___ Solder Deposit Operator ___ Other (describe below) Sacrament/Intervention ___ Active listening ___ Anointing ___ Jehovah'S Witness ___ Bereavement ___ Communion ___ Renetta exploration ___ ___ Life review ___ Prayer ___ Reconciliation ___ Sacrament of Sick ___ Supportive presence ___ Wedding _x__ Other (describe below) Pastoral Comments patient is undergoing procedures right now; SO is in hallway and this hoseman engages him in conversation and support; SO indicates that a DIL and a son are making plans to arrive as early as Sunday from out of state; SO speaks about his feelings
--- NOTE | 2018-06-07 12:49 | RAD_ITS ---
STUDY: X-RAY CHEST REASON FOR EXAM: Female, 63 years old. right temp dialysis cath and left SCIJ TECHNIQUE: Single AP portable view of the chest. COMPARISON: None. FINDINGS: Central venous line is seen on the left side its tip is at the lower part of the superior vena cava. Hemodialysis catheter is seen on the right side its tip is at the lower part of the superior vena cava. Endotracheal tube is seen its tip is 4 cm superior to the ronal. An NG tube is seen its tip is below the diaphragm is in good position. Ill-defined groundglass opacities are seen in the perihilar regions and lung bases suggesting pulmonary edema. There is no demonstrated pleural abnormality. There is moderate cardiac enlargement. Normal mediastinum and carolyn. Normal visualized pulmonary arteries. There is atherosclerotic calcification of the aortic arch with tortuosity. Normal visualized thoracic spine. Normal visualized ribs, clavicles, and shoulders. There is no demonstrated abnormality of the visualized soft tissue structures of the upper abdomen. RAD/Chest 1 View (Portable) IMPRESSION: Pulmonary edema. Electronically Signed: Karena Hawk, at 13:53 EDT Tel , Service support ,
--- NOTE | 2018-06-07 12:58 | PCM.OPRPT ---
Report of Operation Date of Procedure: 06/07/18 Surgery/Procedure Performed:: Insertion of hemodialysis catheter Description of Surgical Findings:: Temporary hemodialysis catheter placement procedure note Indication: Hemodialysis Procedure: A time-out was completed to verify correct patient, indication, medication allergies, procedure, coagulation studies, informed consent signed, and equipment needed. The patient was placed in the supine position for a central line placement to the rt IJ vein. The patients rt neck was prepped using chlorhexidine and a full body sterile drape was applied. 1% lidocaine was used to anesthetize the surrounding skin. A 12 fr 20 cm Avillion catheter introduced into the internal jugular vein using the modified Seldinger technique with the assistance of ultrasound. The catheter was threaded smoothly over the guidewire, the site was dilated twice up in a stepwise fashion the guidewire was removed easily, nonpulsatile blood returned. All ports were aspirated of air and flushed with sterile saline, then locked with U 1000 heparin 1.3 mL's to each port. The catheter was sutured in place and covered with an occlusive dressing impregnated with chlorhexidine. Post-procedure: The patient tolerated the procedure well. Vital signs remained stable. EBL 5 cc. No complications. Chest X Ray ordered to confirm tip placement and the absence of pneumothorax. Code Visit Procedures: [id number] Insert Non-tunnel CV Cath
--- NOTE | 2018-06-07 13:01 | OP.PCM_ITS ---
Report of Operation Date of Procedure: 06/07/18 Surgery/Procedure Performed:: Insertion of hemodialysis catheter Description of Surgical Findings:: Temporary hemodialysis catheter placement procedure note Indication: Hemodialysis Procedure: A time-out was completed to verify correct patient, indication, medication allergies, procedure, coagulation studies, informed consent signed, and equipment needed. The patient was placed in the supine position for a central line placement to the rt IJ vein. The patients rt neck was prepped using chlorhexidine and a full body sterile drape was applied. 1% lidocaine was used to anesthetize the surrounding skin. A 12 fr 20 cm Cangrade catheter int roduced into the internal jugular vein using the modified Seldinger technique with the assistance of ultrasound. The catheter was threaded smoothly over the guidewire, the site was dilated twice up in a stepwise fashion the guidewire was removed easily, nonpulsatile blood returned. All ports were aspirated of air and flushed with sterile saline, then locked with U 1000 heparin 1.3 mL's to each port. The catheter was sutured in place and covered with an occlusive dressing impregnated with chlorhexidine. Post-procedure: The patient tolerated the procedure well. Vital signs remained stable. EBL 5 cc. No complications. Chest X Ray ordered to confirm tip placement and the absence of pneumothorax. Code Visit Procedures: [id number] Insert Non-tunnel CV Cath
--- NOTE | 2018-06-07 13:01 | PCM.OPRPT ---
Report of Operation Date of Procedure: 06/07/18 Surgery/Procedure Performed:: Triple-lumen catheter insertion Description of Surgical Findings:: Central line placement procedure note Indication: IV access/hemodynamic instability/vasoactive medications Procedure: A time-out was completed to verify correct patient, indication, medication allergies, procedure, coagulation studies, informed consent signed, and equipment needed. The patient was placed in the supine position for a central line placement to the left IJ vein. The patients left neck was prepped using chlorhexidine and a full body sterile drape was applied. 1% lidocaine was used to anesthetize the surrounding skin. A 7fr 20 cm blue guard triple lumen catheter introduced into the internal jugular vein using the modified Seldinger technique with the assistance of ultrasound. The catheter was threaded smoothly over the guidewire, the guidewire was removed easily, nonpulsatile blood returned. All ports were aspirated of air and flushed with sterile saline. The catheter was sutured in place and covered with an occlusive dressing impregnated with chlorhexidine. Post-procedure: The patient tolerated the procedure well. Vital signs remained stable. EBL 3 cc. No complications. Chest X Ray ordered to confirm tip placement and the absence of pneumothorax. Code Visit Procedures: [id number] Insert Non-tunnel CV Cath
[2018-06-07 13:16] LABS: Bedside Glucose 243 mg/dL (70-110)
--- NOTE | 2018-06-07 13:23 | PCM.CONS.R ---
Problem List (1) Acute kidney injury superimposed on chronic kidney disease Status: Chronic (2) Hyperkalemia Status: Acute (3) Metabolic acidosis Status: Acute Consultation - Renal PCP/ Referring MD: Requesting physician: [] Primary care physician: Toby Aleman MD - History of Present Illness History of Present Illness: The patient is a 63 year old F with a past medical history of chronic respiratory failure due to lungs fibrosis and obstructive sleep apnea, diabetes, hypertension patient presented on June 04 2 urgent care center for progressive shortness of breath along with a cough and fever. She was found hypoxic at 70% and was sent to [facility]. Patient was initially admitted to telemetry floor. Patient was started on antibiotics and BiPAP. Also patient was started on Lasix for possible CHF. Next day her clinical status deteriorated and patient was moved to the ICU and intubated. Repeat CT scan shows ARDS with worsening infiltrate bilaterally. Renal team was consulted today for acute kidney injury on chronic kidney disease. Baseline creatinine seems around 2.2 mg a deciliter. Creatinine increased today to 3.8 mg a deciliter from 2.8 mg a day yesterday. Patient is also hyperkalemic and acidotic. She is now bradycardic with a heart rate around 40's. Patient is anuric since last night. Patient did not respond to Lasix. Review of system: 12 systems review is unobtainable due to the patient condition. Patient is sedated [] - Allergies Allergies: Allergies haloperidol [From Haldol] Allergy (Verified 06/04/18 11:53) Rash haloperidol lactate [From Haldol] Allergy (Verified 06/04/18 11:53) Rash - Current Medications Current Medications: Current Medications Acetaminophen (Tylenol Liquid) 650 mg GT Q6H PRN PRN PRN Reason: fever over 100.4 or pain Albuterol Sulfate (Ventolin Aerosols) 2.5 mg INHALATION Q2H PRN PRN PRN Reason: SHORTNESS OF BREATH Last Admin: 06/06/18 05:07 Dose: 2.5 mg Albuterol/Ipratropium (Duoneb) 3 ml INHALATION Q4HWA.RT [facility] Last Admin: 06/07/18 11:47 Dose: Not Given Atorvastatin Calcium (Lipitor) 40 mg GT QHS [facility] Atropine Sulfate () 0.5 mg IV X1 PRN PRN Reason: HR < 35 sustained, MAP < 60 Chlorhexidine Gluconate () 15 ml PO BID [facility] Last Admin: 06/07/18 08:43 Dose: 15 ml Chlorhexidine Gluconate () 1 each TOPICAL DAILY [facility] Last Admin: 06/07/18 06:15 Dose: 1 each Citalopram Hydrobromide (Celexa) 40 mg GT DAILY [facility] Last Admin: 06/07/18 08:43 Dose: 40 mg Cyclopentolate HCl (Cyclogyl) 1 drop LEFT EYE QHS [facility] Last Admin: 06/06/18 21:16 Dose: 1 drop Dextrose (D50w Syringe) 0 gm IV X1 PRN; Protocol PRN Reason: Hypoglycemia Enoxaparin Sodium (Lovenox) 30 mg SC DAILY@0600 [facility] Last Admin: 06/07/18 06:15 Dose: 30 mg Famotidine (Pepcid) 20 mg GT DAILY [facility] Gabapentin (Neurontin) 300 mg GT BID [facility] Last Admin: 06/07/18 08:44 Dose: 300 mg Glucagon () 1 mg IM .X1 PRN PRN Reason: Hypoglycemia Heparin Sodium (Porcine) () 2,500 units IV UD PRN PRN Reason: HEPARIN FLUSH Azithromycin 500 mg/ Dextrose 255 mls @ 250 mls/hr IV Q24 [facility] Stop: 06/09/18 11:02 Last Admin: 06/07/18 09:48 Dose: 250 mls/hr Ceftriaxone Sodium 2 gm/ (Sodium Chloride) 50 mls @ 100 mls/hr IV Q24 [facility] Last Admin: 06/07/18 09:04 Dose: 100 mls/hr Fentanyl () 100 mls @ 5 mls/hr IV .Q20H [facility] Last Admin: 06/07/18 09:52 Dose: 5 mls/hr Propofol (Diprivan) 1,000 mg in 100 mls @ 8.232 mls/hr CONT INF .Q12H [facility] Last Admin: 06/07/18 06:39 Dose: Not Given Enteral Nutritional Formula (Vital Af 1.2 Fransico Liquid) 1,000 mls @ 10 mls/hr GT .Q48H [facility] Insulin Human Lispro (Humalog Kwikpen (Bkc)) 0 unit SQ Q6 [facility]; Protocol Last Admin: 06/07/18 06:18 Dose: 4 units Methylprednisolone (Solu-Medrol) 40 mg IV Q8 [facility] Last Admin: 06/07/18 06:15 Dose: 40 mg Ondansetron HCl (Zofran) 4 mg IV Q6H PRN PRN PRN Reason: NAUSEA/VOMITING Last Admin: 06/05/18 00:30 Dose: 4 mg Prednisolone Acetate (Pred Forte Eye Drops (5 Ml)) 2 drop LEFT EYE DAILY [facility] Last Admin: 06/07/18 09:51 Dose: 2 drop Sodium Chloride () 5 - 15 ml IV UD PRN PRN Reason: SALINE FLUSH Last Admin: 06/06/18 21:16 Dose: 15 ml Sodium Chloride () 10 ml IV UD PRN PRN Reason: Dialysis Catheter Flush Sodium Chloride () 10 - 40 ml IV UD PRN PRN Reason: MULTILUMEN/HICMAN CATH FLUSH - Past Medical History Past Medical History (Chronic Problems): Chronic Problems Obstructive sleep apnea (Chronic) Respiratory failure with hypoxia (Chronic) Pulmonary fibrosis (Chronic) Acute kidney injury superimposed on chronic kidney disease (Chronic) Obesity (Chronic) Hypertension (Chronic) Depression (Chronic) Controlled diabetes mellitus type II without complication (Chronic) - Past Surgical History Surgical History: cholecystectomy, tonsillectomy - Social History Smoking Status: Former smoker Alcohol: None Drugs: None - Family History Maternal History Items: Diabetes, Heart Disease Paternal History Items: - - from prostate cancer Patient Problems: Active and Suspected Problems Severe sepsis (Acute) Hyperkalemia (Acute) Metabolic acidosis (Acute) - Physical Exam General: - - Sedated and intubated HEENT: Atraumatic Oral: Moist Mucosa Neck: Supple, No JVD Lungs: - - Patient is on vent support with FiO2 100% and PEEP 16. Equal air entry. Bilateral rales and rhonchi Cardiovascular: Regular Rhythm, Normal S1, Normal S2, Bradycardic Abdomen: Bowel Sounds Present, Soft, Non-Distended Extremities: No clubbing, No cyanosis, No edema Skin: No rashes Musculoskeletal: No Muscle Wasting Lymphatic: No Cervical, Supraclavicular, or Inguinal Adenopathy Vital Signs Temp Pulse Resp BP Pulse Ox 96.3 F L 53 L 19 H 99/55 L 88 06/07/18 08:00 06/07/18 11:47 06/07/18 11:47 06/07/18 11:00 06/07/18 11:47 Oxygen Flow Rate (L/min) 15 Oxygen Delivery Method Mechanical Ventilator Weight: 135.8 kg Body Mass Index (BMI) 51.5 Finger Stick Blood Glucose 70 Intake and Output for Last 24 Hours 06/05/18 06/06/18 06/07/18 23:59 23:59 23:59 Intake Total 1094 / 1094 1078.9 / 1078.9 319.1 / 319.1 Output Total 1350 / 1350 2100 / 2100 100 / 100 Balance -256 / -256 -1021.1 / -1021.1 219.1 / 219.1 Microbiology Past 72 Hours 06/06/18 14:40 Gram Stain - Final Sputum, Induced/Lukens Respiratory Culture - Preliminary Appears to be normal respiratory carlos. Further studies to follow. 06/04/18 15:15 Blood Culture - Preliminary Blood Culture (Wb) - Right Hand No growth in 48 hours. 06/04/18 12:03 Blood Culture - Preliminary Blood Culture (Wb) - Anticubital Left No growth in 48 hours. 06/05/18 06:20 Respiratory Panel (PCR) - Final Mucosa - Nasopharyngeal 06/05/18 04:54 Legionella Antigen - Final Urine, Clean Catch Laboratory Tests Past 24 Hrs 06/06/18 06/06/18 06/07/18 05:20 15:47 02:50 WBC 9.7 RBC 2.28 L Hgb 7.3 L Hct 22.7 L MCV 99.6 H MCH 32.0 MCHC 32.2 RDW 15.3 H RDW Differential 55.3 H Plt Count 210 MPV 9.3 Immature Gran % (Auto) 0.100 Neut % (Auto) 90.9 H Lymph % (Auto) 5.9 L [place] % (Auto) 3.1 Eos % (Auto) 0.0 Baso % (Auto) 0.0 Absolute Neuts (auto) 8.8 H Absolute Lymphs (auto) 0.57 L Total Counted Not Reportable Differential Comment Platelet Estimate ADEQUATE Polychromasia RARE Hypochromasia RARE Anisocytosis RARE PT INR APTT Specimen Type ART Sample Site R Radial pH 7.22 L Bicarbonate Actual 19.4 L POC Total CO2 21 Base Excess -8 L O2 Saturation 85 L O2 % 60 ABG pCO2 47.7 H ABG pO2 61 L Lazaro Test POS Respiration Rate 16 O2 Delivery Device Vent Minute Volume 10.00 Vent Mode A-C Tidal Volume 400 POC PEEP 16 Blood Gas Notified Whom ICU MD Blood Gas Notified Time 1546 Sodium Potassium Chloride Carbon Dioxide Anion Gap BUN Creatinine Estim Creat Clear Calc Est GFR (MDRD) Af Amer Est GFR (MDRD) Non-Af BUN/Creatinine Ratio Glucose Calcium Phosphorus Magnesium Total Creatine Kinase 234 H Triglycerides 107 06/07/18 06/07/18 06/07/18 02:50 05:21 10:30 WBC RBC Hgb Hct MCV MCH MCHC RDW RDW Differential Plt Count MPV Immature Gran % (Auto) Neut % (Auto) Lymph % (Auto) [place] % (Auto) Eos % (Auto) Baso % (Auto) Absolute Neuts (auto) Absolute Lymphs (auto) Total Counted Differential Comment Platelet Estimate Polychromasia Hypochromasia Anisocytosis PT 18.5 H INR 1.6 APTT 35.1 Specimen Type ART Sample Site R Radial pH 7.22 L Bicarbonate Actual 20.0 L POC Total CO2 21 Base Excess -8 L O2 Saturation 96 O2 % 70 ABG pCO2 48.8 H ABG pO2 103 H Lazaro Test Respiration Rate 16 O2 Delivery Device Vent Minute Volume 8.00 Vent Mode A-C Tidal Volume 450 POC PEEP 16 Blood Gas Notified Whom ICU MD Blood Gas Notified Time 515 Sodium 135 L Potassium 5.9 H Chloride 105 Carbon Dioxide 23.0 Anion Gap 7 BUN 74 H Creatinine 3.87 H Estim Creat Clear Calc 13.21 Est GFR (MDRD) Af Amer 15 L Est GFR (MDRD) Non-Af 12 L BUN/Creatinine Ratio 19.1 Glucose 259 H Calcium 8.0 L Phosphorus Magnesium Total Creatine Kinase Triglycerides 06/07/18 13:00 WBC RBC Hgb Hct MCV MCH MCHC RDW RDW Differential Plt Count MPV Immature Gran % (Auto) Neut % (Auto) Lymph % (Auto) [place] % (Auto) Eos % (Auto) Baso % (Auto) Absolute Neuts (auto) Absolute Lymphs (auto) Total Counted Differential Comment Platelet Estimate Polychromasia Hypochromasia Anisocytosis PT INR APTT Specimen Type Sample Site pH Bicarbonate Actual POC Total CO2 Base Excess O2 Saturation O2 % ABG pCO2 ABG pO2 Lazaro Test Respiration Rate O2 Delivery Device Minute Volume Vent Mode Tidal Volume POC PEEP Blood Gas Notified Whom Blood Gas Notified Time Sodium Pending Potassium Pending Chloride Pending Carbon Dioxide Pending Anion Gap Pending BUN Pending Creatinine Pending Estim Creat Clear Calc Est GFR (MDRD) Af Amer Pending Est GFR (MDRD) Non-Af Pending BUN/Creatinine Ratio Pending Glucose Pending Calcium Pending Phosphorus Pending Magnesium Pending Total Creatine Kinase Triglycerides POC Glucose 06/07/18 06/07/18 06/06/18 13:12 06:17 23:53 POC Glucose 243 H 253 H 250 H 06/06/18 06/06/18 17:51 15:28 POC Glucose 256 H 241 H Assessment/Plan All Active Problems Severe sepsis (Acute) Hyperkalemia (Acute) Metabolic acidosis (Acute) Tobacco use disorder (Resolved) Cocaine dependence, episodic (Resolved) 1-acute kidney injury on chronic kidney disease. Patient has chronic kidney disease stage IV. MARIAN is most probably from sepsis induced ATN. Patient is anuric. Creatinine is up to 3.8 mg a deciliter. She is hyperkalemic with a bradycardic also the patient has acidosis. Hemodialysis indicated. Right IJ temporary hemodialysis access is in place. I will arrange for the first session of hemodialysis today for 2-1/2 hours, blood flow rate 250, dialysis flow rate 300, K dialysate 1 for the first hour and then 2. No ultrafiltration I would do UA along with urine indices. Will order renal ultrasound when the patient is more stable. Please keep mean arterial pressure more than 65. I reviewed the patient's medications. All the patient's medications are appropriately dosed current creatinine clearance 2-hyperkalemia. Most probably from acute kidney injury and acidosis. Patient is a bradycardic. Dialysis indicated. Should improve with hemodialysis. Hemodialysis orders as above. 3-Metabolic acidosis: Mixed metabolic and respiratory should improve with hemodialysis. 4-acute respiratory failure due to ARDS/pneumonia. On vent support as per ICU team. Antibiotics are appropriately dosed for the current creatinine clearance Thank you for the consult. Renal team will continue to follow. Please call with any question or concern at my cell phone #[phone] Plan of care was discussed with Dr. Cem Weldon. Rob Fletcher MD
[2018-06-07 13:26] LABS: Anion Gap 8 (5-15); BUN 91 mg/dL (7-18); BUN/Creat Ratio 20.2 RATIO (10-20); Calcium,Total 8.1 mg/dL (8.5-10.1); Chloride 104 mmol/L (98-107); EST Glomerular Filtration Rate 11 mL/min (>60); Est Glom Filt Rate - Afr Amer 13 mL/min (>60); Estimated Creatinine Clearance 11.36 ml/min; Glucose 272 mg/dL (74-106); Magnesium 2.5 mg/dL (1.6-2.6); Phosphorus 7.9 mg/dL (2.5-4.9); Potassium 5.8 mmol/L (3.5-5.1); Sodium Level 134 mmol/L (136-145)
--- NOTE | 2018-06-07 13:27 | CON.PCM_ITS ---
Problem List (1) Acute kidney injury superimposed on chronic kidney disease Status: Chronic (2) Hyperkalemia Status: Acute (3) Metabolic acidosis Status: Acute Consultation - Renal PCP/ Referring MD: Requesting physician: [] Primary care physician: Toby Aleman MD - History of Present Illness History of Present Illness: The patient is a 63 year old F with a past medical history of chronic respiratory failure due to lungs fibrosis and obstructive sleep apnea, diabetes, hypertension patient presented on June 04 2 urgent care center for progressive shortness of breath along with a cough and fever. She was found hypoxic at 70% and was sent to [facility]. Patient was initially admitted to telemetry floor. Patient was started on antibiotics and BiPAP. Also patient was started on Lasix for possible CHF. Next day her clinical status deteriorated and patient was moved to the ICU and intubated. Repeat CT scan shows ARDS with worsening infiltrate bilaterally. Renal team was consulted today for acute kidney injury on chronic kidney disease. Baseline creatinine seems around 2.2 mg a deciliter. Creatinine increased today to 3.8 mg a deciliter from 2.8 mg a day yesterday. Patient is also hyperkalemic and acidotic. She is now bradycardic with a heart rate around 40's. Patient is anuric since last night. Patient did not respond to Lasix. Review of system: 12 systems review is unobtainable due to the patient condition. Patient is sedated [] - Allergies Allergies: Allergies haloperidol [From Haldol] Allergy (Verified 06/04/18 11:53) Rash haloperidol lactate [From Haldol] Allergy (Verified 06/04/18 11:53) Rash - Current Medications Current Medications: Current Medications Acetaminophen (Tylenol Liquid) 650 mg GT Q6H PRN PRN PRN Reason: fever over 100.4 or pain Albuterol Sulfate (Ventolin Aerosols) 2.5 mg INHALATION Q2H PRN PRN PRN Reason: SHORTNESS OF BREATH Last Admin: 06/06/18 05:07 Dose: 2.5 mg Albuterol/Ipratropium (Duoneb) 3 ml INHALATION Q4HWA.RT [facility] Last Admin: 06/07/18 11:47 Dose: Not Given Atorvastatin Calcium (Lipitor) 40 mg GT QHS [facility] Atropine Sulfate () 0.5 mg IV X1 PRN PRN Reason: HR < 35 sustained, MAP < 60 Chlorhexidine Gluconate () 15 ml PO BID [facility] Last Admin: 06/07/18 08:43 Dose: 15 ml Chlorhexidine Gluconate () 1 each TOPICAL DAILY [facility] Last Admin: 06/07/18 06:15 Dose: 1 each Citalopram Hydrobromide (Celexa) 40 mg GT DAILY [facility] Last Admin: 06/07/18 08:43 Dose: 40 mg Cyclopentolate HCl (Cyclogyl) 1 drop LEFT EYE QHS [facility] Last Admin: 06/06/18 21:16 Dose: 1 drop Dextrose (D50w Syringe) 0 gm IV X1 PRN; Protocol PRN Reason: Hypoglycemia Enoxaparin Sodium (Lovenox) 30 mg SC DAILY@0600 [facility] Last Admin: 06/07/18 06:15 Dose: 30 mg Famotidine (Pepcid) 20 mg GT DAILY [facility] Gabapentin (Neurontin) 300 mg GT BID [facility] Last Admin: 06/07/18 08:44 Dose: 300 mg Glucagon () 1 mg IM .X1 PRN PRN Reason: Hypoglycemia Heparin Sodium (Porcine) () 2,500 units IV UD PRN PRN Reason: HEPARIN FLUSH Azithromycin 500 mg/ Dextrose 255 mls @ 250 mls/hr IV Q24 [facility] Stop: 06/09/18 11:02 Last Admin: 06/07/18 09:48 Dose: 250 mls/hr Ceftriaxone Sodium 2 gm/ (Sodium Chloride) 50 mls @ 100 mls/hr IV Q24 [facility] Last Admin: 06/07/18 09:04 Dose: 100 mls/hr Fentanyl () 100 mls @ 5 mls/hr IV .Q20H [facility] Last Admin: 06/07/18 09:52 Dose: 5 mls/hr Propofol (Diprivan) 1,000 mg in 100 mls @ 8.232 mls/hr CONT INF .Q12H [facility] Last Admin: 06/07/18 06:39 Dose: Not Given Enteral Nutritional Formula (Vital Af 1.2 Fransico Liquid) 1,000 mls @ 10 mls/hr GT .Q48H [facility] Insulin Human Lispro (Humalog Kwikpen (Bkc)) 0 unit SQ Q6 [facility]; Protocol Last Admin: 06/07/18 06:18 Dose: 4 units Methylprednisolone (Solu-Medrol) 40 mg IV Q8 [facility] Last Admin: 06/07/18 06:15 Dose: 40 mg Ondansetron HCl (Zofran) 4 mg IV Q6H PRN PRN PRN Reason: NAUSEA/VOMITING Last Admin: 06/05/18 00:30 Dose: 4 mg Prednisolone Acetate (Pred Forte Eye Drops (5 Ml)) 2 drop LEFT EYE DAILY [facility] Last Admin: 06/07/18 09:51 Dose: 2 drop Sodium Chloride () 5 - 15 ml IV UD PRN PRN Reason: SALINE FLUSH Last Admin: 06/06/18 21:16 Dose: 15 ml Sodium Chloride () 10 ml IV UD PRN PRN Reason: Dialysis Catheter Flush Sodium Chloride () 10 - 40 ml IV UD PRN PRN Reason: MULTILUMEN/HICMAN CATH FLUSH - Past Medical History Past Medical History (Chronic Problems): Chronic Problems Obstructive sleep apnea (Chronic) Respiratory failure with hypoxia (Chronic) Pulmonary fibrosis (Chronic) Acute kidney injury superimposed on chronic kidney disease (Chronic) Obesity (Chronic) Hypertension (Chronic) Depression (Chronic) Controlled diabetes mellitus type II without complication (Chronic) - Past Surgical History Surgical History: cholecystectomy, tonsillectomy - Social History Smoking Status: Former smoker Alcohol: None Drugs: None - Family History Maternal History Items: Diabetes, Heart Disease Paternal History Items: - - from prostate cancer Patient Problems: Active and Suspected Problems Severe sepsis (Acute) Hyperkalemia (Acute) Metabolic acidosis (Acute) - Physical Exam General: - - Sedated and intubated HEENT: Atraumatic Oral: Moist Mucosa Neck: Supple, No JVD Lungs: - - Patient is on vent support with FiO2 100% and PEEP 16. Equal air entry. Bilateral rales and rhonchi Cardiovascular: Regular Rhythm, Normal S1, Normal S2, Bradycardic Abdomen: Bowel Sounds Present, Soft, Non-Distended Extremities: No clubbing, No cyanosis, No edema Skin: No rashes Musculoskeletal: No Muscle Wasting Lymphatic: No Cervical, Supraclavicular, or Inguinal Adenopathy Vital Signs Temp Pulse Resp BP Pulse Ox 96.3 F L 53 L 19 H 99/55 L 88 06/07/18 08:00 06/07/18 11:47 06/07/18 11:47 06/07/18 11:00 06/07/18 11:47 Oxygen Flow Rate (L/min) 15 Oxygen Delivery Method Mechanical Ventilator Weight: 135.8 kg Body Mass Index (BMI) 51.5 Finger Stick Blood Glucose 70 Intake and Output for Last 24 Hours 06/05/18 06/06/18 06/07/18 23:59 23:59 23:59 Intake Total 1094 / 1094 1078.9 / 1078.9 319.1 / 319.1 Output Total 1350 / 1350 2100 / 2100 100 / 100 Balance -256 / -256 -1021.1 / -1021.1 219.1 / 219.1 Microbiology Past 72 Hours 06/06/18 14:40 Gram Stain - Final Sputum, Induced/Lukens Respiratory Culture - Preliminary Appears to be normal respiratory carlos. Further studies to follow. 06/04/18 15:15 Blood Culture - Preliminary Blood Culture (Wb) - Right Hand No growth in 48 hours. 06/04/18 12:03 Blood Culture - Preliminary Blood Culture (Wb) - Anticubital Left No growth in 48 hours. 06/05/18 06:20 Respiratory Panel (PCR) - Final Mucosa - Nasopharyngeal 06/05/18 04:54 Legionella Antigen - Final Urine, Clean Catch Laboratory Tests Past 24 Hrs 06/06/18 06/06/18 06/07/18 05:20 15:47 02:50 WBC 9.7 RBC 2.28 L Hgb 7.3 L Hct 22.7 L MCV 99.6 H MCH 32.0 MCHC 32.2 RDW 15.3 H RDW Differential 55.3 H Plt Count 210 MPV 9.3 Immature Gran % (Auto) 0.100 Neut % (Auto) 90.9 H Lymph % (Auto) 5.9 L [place] % (Auto) 3.1 Eos % (Auto) 0.0 Baso % (Auto) 0.0 Absolute Neuts (auto) 8.8 H Absolute Lymphs (auto) 0.57 L Total Counted Not Reportable Differential Comment Platelet Estimate ADEQUATE Polychromasia RARE Hypochromasia RARE Anisocytosis RARE PT INR APTT Specimen Type ART Sample Site R Radial pH 7.22 L Bicarbonate Actual 19.4 L POC Total CO2 21 Base Excess -8 L O2 Saturation 85 L O2 % 60 ABG pCO2 47.7 H ABG pO2 61 L Lazaro Test POS Respiration Rate 16 O2 Delivery Device Vent Minute Volume 10.00 Vent Mode A-C Tidal Volume 400 POC PEEP 16 Blood Gas Notified Whom ICU MD Blood Gas Notified Time 1546 Sodium Potassium Chloride Carbon Dioxide Anion Gap BUN Creatinine Estim Creat Clear Calc Est GFR (MDRD) Af Amer Est GFR (MDRD) Non-Af BUN/Creatinine Ratio Glucose Calcium Phosphorus Magnesium Total Creatine Kinase 234 H Triglycerides 107 06/07/18 06/07/18 06/07/18 02:50 05:21 10:30 WBC RBC Hgb Hct MCV MCH MCHC RDW RDW Differential Plt Count MPV Immature Gran % (Auto) Neut % (Auto) Lymph % (Auto) [place] % (Auto) Eos % (Auto) Baso % (Auto) Absolute Neuts (auto) Absolute Lymphs (auto) Total Counted Differential Comment Platelet Estimate Polychromasia Hypochromasia Anisocytosis PT 18.5 H INR 1.6 APTT 35.1 Specimen Type ART Sample Site R Radial pH 7.22 L Bicarbonate Actual 20.0 L POC Total CO2 21 Base Excess -8 L O2 Saturation 96 O2 % 70 ABG pCO2 48.8 H ABG pO2 103 H Lazaro Test Respiration Rate 16 O2 Delivery Device Vent Minute Volume 8.00 Vent Mode A-C Tidal Volume 450 POC PEEP 16 Blood Gas Notified Whom ICU MD Blood Gas Notified Time 515 Sodium 135 L Potassium 5.9 H Chloride 105 Carbon Dioxide 23.0 Anion Gap 7 BUN 74 H Creatinine 3.87 H Estim Creat Clear Calc 13.21 Est GFR (MDRD) Af Amer 15 L Est GFR (MDRD) Non-Af 12 L BUN/Creatinine Ratio 19.1 Glucose 259 H Calcium 8.0 L Phosphorus Magnesium Total Creatine Kinase Triglycerides 06/07/18 13:00 WBC RBC Hgb Hct MCV MCH MCHC RDW RDW Differential Plt Count MPV Immature Gran % (Auto) Neut % (Auto) Lymph % (Auto) [place] % (Auto) Eos % (Auto) Baso % (Auto) Absolute Neuts (auto) Absolute Lymphs (auto) Total Counted Differential Comment Platelet Estimate Polychromasia Hypochromasia Anisocytosis PT INR APTT Specimen Type Sample Site pH Bicarbonate Actual POC Total CO2 Base Excess O2 Saturation O2 % ABG pCO2 ABG pO2 Lazaro Test Respiration Rate O2 Delivery Device Minute Volume Vent Mode Tidal Volume POC PEEP Blood Gas Notified Whom Blood Gas Notified Time Sodium Pending Potassium Pending Chloride Pending Carbon Dioxide Pending Anion Gap Pending BUN Pending Creatinine Pending Estim Creat Clear Calc Est GFR (MDRD) Af Amer Pending Est GFR (MDRD) Non-Af Pending BUN/Creatinine Ratio Pending Glucose Pending Calcium Pending Phosphorus Pending Magnesium Pending Total Creatine Kinase Triglycerides POC Glucose 06/07/18 06/07/18 06/06/18 13:12 06:17 23:53 POC Glucose 243 H 253 H 250 H 06/06/18 06/06/18 17:51 15:28 POC Glucose 256 H 241 H Assessment/Plan All Active Problems Severe sepsis (Acute) Hyperkalemia (Acute) Metabolic acidosis (Acute) Tobacco use disorder (Resolved) Cocaine dependence, episodic (Resolved) 1-acute kidney injury on chronic kidney disease. Patient has chronic kidney disease stage IV. MARIAN is most probably from sepsis induced ATN. Patient is anuric. Creatinine is up to 3.8 mg a deciliter. She is hyperkalemic with a bradycardic also the patient has acidosis. Hemodialysis indicated. Right IJ temporary hemodialysis access is in place. I will arrange for the first session of hemodialysis today for 2-1/2 hours, blood flow rate 250, dialysis flow rate 300, K dialysate 1 for the first hour and then 2. No ultrafiltration I would do UA along with urine indices. Will order renal ultrasound when the patient is more stable. Please keep mean arterial pressure more than 65. I reviewed the patient's medications. All the patient's medications are appropriately dosed current creatinine clearance 2-hyperkalemia. Most probably from acute kidney injury and acidosis. Patient is a bradycardic. Dialysis indicated. Should improve with hemodialysis. Hemodialysis orders as above. 3-Metabolic acidosis: Mixed metabolic and respiratory should improve with hemodialysis. 4-acute respiratory failure due to ARDS/pneumonia. On vent support as per ICU team. Antibiotics are appropriately dosed for the current creatinine clearance Thank you for the consult. Renal team will continue to follow. Please call with any question or concern at my cell phone #[phone] Plan of care was discussed with Dr. Cem Weldon. Rob Fletcher MD
[2018-06-07] MEDS: Vital AF 1.2 Cal Liquid 1,000 ML 10 ML GT (13:30)
--- NOTE | 2018-06-07 13:34 | CASEMGMT ---
The following note is from CHAI Carrasquillo: SAVANNAH PAULA Note: Call received from francis, [employer] care center manager for Pablo Nieves who she stated pt is POA for. She wished to facilitate phone call between patient and Pablo. SAVANNAH PUALA requested to call Pablo back as ICU rounds were in progress. . Call returned to Pablo. SAVANNAH PAULA let him know pt is unable to accept phone call at this time and medical information cannot be given. Pablo stated understanding, states pt is his POA for financial and he has known her for 24 years. SAVANNAH PAULA suggested he call back to hospital in a day or two and if pt is able to speak on phone he can then talk with her. Pablo stated he will do this. Harrison RUIZN RN ACM
--- NOTE | 2018-06-07 15:32 | NURSING ---
When pt awakes, pt pulls at tubes in an attempt to organized them. Restraints remain applied at this time.
--- NOTE | 2018-06-07 16:50 | PN_ITS ---
Patient Problems: Active and Suspected Problems Severe sepsis (Acute) Hyperkalemia (Acute) Metabolic acidosis (Acute) Subjective: Patient was seen and examined today, she is sedated and on the ventilator, I talked with her male friend concerning her care. Patient is being seen by nephrology and will undergo dialysis. - Physical Exam General: - - Patient is sedated and on the ventilator HEENT: Atraumatic, PERRLA, EOMI, Normocephalic Neck: Supple, Trachea Midline, Thyroid Normal Size and Texture Lungs: Clear to auscultation, No rhonchi, No wheeze, No rales, Diminished Cardiovascular: Regular rate, Regular Rhythm, Normal S1, No murmurs, Bradycardic Abdomen: Bowel Sounds Present, Soft, Non Tender, Non-Distended, Obese, No hernias noted Extremities: No clubbing, No cyanosis, Capillary Refill Less than 3 Seconds Skin: No rashes, No breakdown Neurological: - - Patient is sedated and on the ventilator Psych/Mental Status: - - Patient is sedated and on the ventilator Vital Signs Temp Pulse Resp BP Pulse Ox 97 F L 39 L 16 95/46 L 100 06/07/18 12:00 06/07/18 15:35 06/07/18 15:35 06/07/18 14:30 06/07/18 15:35 Oxygen Flow Rate (L/min) 15 Oxygen Delivery Method Mechanical Ventilator Weight: 135.8 kg Body Mass Index (BMI) 51.5 Finger Stick Blood Glucose 70 Intake and Output for Last 24 Hours 06/05/18 06/06/18 06/07/18 23:59 23:59 23:59 Intake Total 1094 / 1094 1078.9 / 1078.9 926.1 / 926.1 Output Total 1350 / 1350 2100 / 2100 160 / 160 Balance -256 / -256 -1021.1 / -1021.1 766.1 / 766.1 Microbiology Past 72 Hours 06/06/18 14:40 Gram Stain - Final Sputum, Induced/Lukens Respiratory Culture - Preliminary Appears to be normal respiratory carlos. Further studies to follow. 06/04/18 15:15 Blood Culture - Preliminary Blood Culture (Wb) - Right Hand No growth in 48 hours. 06/04/18 12:03 Blood Culture - Preliminary Blood Culture (Wb) - Anticubital Left No growth in 48 hours. 06/05/18 06:20 Respiratory Panel (PCR) - Final Mucosa - Nasopharyngeal 06/05/18 04:54 Legionella Antigen - Final Urine, Clean Catch Laboratory Tests Past 24 Hrs 06/06/18 06/07/18 06/07/18 05:20 02:50 02:50 WBC 9.7 RBC 2.28 L Hgb 7.3 L Hct 22.7 L MCV 99.6 H MCH 32.0 MCHC 32.2 RDW 15.3 H RDW Differential 55.3 H Plt Count 210 MPV 9.3 Immature Gran % (Auto) 0.100 Neut % (Auto) 90.9 H Lymph % (Auto) 5.9 L [place] % (Auto) 3.1 Eos % (Auto) 0.0 Baso % (Auto) 0.0 Absolute Neuts (auto) 8.8 H Absolute Lymphs (auto) 0.57 L Total Counted Not Reportable Differential Comment Platelet Estimate ADEQUATE Polychromasia RARE Hypochromasia RARE Anisocytosis RARE PT INR APTT Specimen Type Sample Site pH Bicarbonate Actual POC Total CO2 Base Excess O2 Saturation O2 % ABG pCO2 ABG pO2 Respiration Rate O2 Delivery Device Minute Volume Vent Mode Tidal Volume POC PEEP Blood Gas Notified Whom Blood Gas Notified Time Sodium 135 L Potassium 5.9 H Chloride 105 Carbon Dioxide 23.0 Anion Gap 7 BUN 74 H Creatinine 3.87 H Estim Creat Clear Calc 13.21 Est GFR (MDRD) Af Amer 15 L Est GFR (MDRD) Non-Af 12 L BUN/Creatinine Ratio 19.1 Glucose 259 H Calcium 8.0 L Phosphorus Magnesium Total Creatine Kinase 234 H Triglycerides 107 06/07/18 06/07/18 06/07/18 05:21 10:30 13:00 WBC RBC Hgb Hct MCV MCH MCHC RDW RDW Differential Plt Count MPV Immature Gran % (Auto) Neut % (Auto) Lymph % (Auto) [place] % (Auto) Eos % (Auto) Baso % (Auto) Absolute Neuts (auto) Absolute Lymphs (auto) Total Counted Differential Comment Platelet Estimate Polychromasia Hypochromasia Anisocytosis PT 18.5 H INR 1.6 APTT 35.1 Specimen Type ART Sample Site R Radial pH 7.22 L Bicarbonate Actual 20.0 L POC Total CO2 21 Base Excess -8 L O2 Saturation 96 O2 % 70 ABG pCO2 48.8 H ABG pO2 103 H Respiration Rate 16 O2 Delivery Device Vent Minute Volume 8.00 Vent Mode A-C Tidal Volume 450 POC PEEP 16 Blood Gas Notified Whom ICU Blood Gas Notified Time 515 Sodium 134 L Potassium 5.8 H Chloride 104 Carbon Dioxide 22.0 Anion Gap 8 BUN 91 H Creatinine 4.50 H Estim Creat Clear Calc 11.36 Est GFR (MDRD) Af Amer 13 L Est GFR (MDRD) Non-Af 11 L BUN/Creatinine Ratio 20.2 H Glucose 272 H Calcium 8.1 L Phosphorus 7.9 H Magnesium 2.5 Total Creatine Kinase Triglycerides POC Glucose 06/07/18 06/07/18 06/06/18 13:12 06:17 23:53 POC Glucose 243 H 253 H 250 H 06/06/18 17:51 POC Glucose 256 H Medical Necessity - Tobacco Use Smoking Status: Former smoker Tobacco Use: Cigarettes Assessment/Plan All Active Problems Severe sepsis (Acute) Hyperkalemia (Acute) Metabolic acidosis (Acute) Tobacco use disorder (Resolved) Cocaine dependence, episodic (Resolved) #1 acute on chronic combined respiratory failure-secondary to probable ARDS- continue present treatment at this time, patient remains on the ventilator at this time, critical care is managing her care in the ICU #2 acute on chronic diastolic congestive heart failure #3 pulmonary hypertension #4 type 2 diabetes #5 Acute kidney injury on chronic kidney disease stage III secondary to type 2 diabetes-nephrology is seeing the patient, she will undergo dialysis #6 hypertension #7 possible bilateral pneumonia-patient will continue on antibiotic treatment for now #8 hyperkalemia-patient will undergo dialysis Code Visit Inpatient E&M: 89345 Subs Hosp L2
[2018-06-07] MEDS: Heparin 10,000 UNITS/10 ML Vial IV (18:00)
[2018-06-07 18:16] LABS: Bedside Glucose 183 mg/dL (70-110)
--- NOTE | 2018-06-07 18:17 | PCM.CONS.C ---
Reason for Consult Date of Consultation: 06/07/18 Reason for Consultation: Abnormal heart rhythm History of Present Illness: The patient is a 63 year old F, who presented to [facility] on 06/04/2018 secondary to progressive shortness of breath. Patient reportedly had reported worsening shortness of breath over the last 2-3 months, but this was significant over the last 1-2 weeks. Patient states this was associated with nasal congestion, nonproductive cough and subjective fevers. Patient did not have any documented fevers and denied any headache, chest pain orthopnea or PND. Patient had reportedly presented to the urgent care center and was found to have a pulse ox in the 70s, so was transported to the ER for further evaluation.In the emergency room, patient was requiring 4-5 L nasal cannula to maintain the saturation of 90%. CT scan of the chest showed some possible early pneumonia versus CHF and a lactic acidosis that was suspected to be secondary to hypoxia. Patient was given IV antibiotics and diuretic therapy and admitted to the PCU. Shortly after arrival to the PCU, she started to require 100% FiO2. After arrival to the intensive care unit, the patient had to be intubated for supportive care. She was noted to be in a junctional rhythm and cardiology was called to assist in the management. Of note was the fact that the patient was noted to be hyperkalemic. At the time of the consultation there were plans to dialyze her today. No other history was immediately available. Past Medical History Allergies/Adverse Reactions: Allergies haloperidol [From Haldol] Allergy (Verified 06/04/18 11:53) Rash haloperidol lactate [From Haldol] Allergy (Verified 06/04/18 11:53) Rash Home Medications: Ambulatory Orders Medication Instructions Recorded Citalopram [Celexa] 40 mg PO DAILY 02/05/15 Amlodipine Besylate [Norvasc] 10 mg PO DAILY 06/04/18 Atorvastatin Calcium [Lipitor] 40 mg PO QHS 06/04/18 Cyclopentolate HCl 1 drop LEFT EYE QHS 06/04/18 Gabapentin [Neurontin] 300 mg PO BID 06/04/18 Insulin NPH Human Isophane 30 unit SQ BID 06/04/18 [Novolin N] Insulin Regular, Human [Novolin R] 30 unit SQ TIDCM 06/04/18 Losartan Potassium 100 mg PO DAILY 06/04/18 Montelukast [Singulair] 10 mg PO QHS 06/04/18 Nintedanib Esylate [Ofev] 150 mg PO BIDCM 06/04/18 Pantoprazole Sodium [Protonix] 20 mg PO DAILY 06/04/18 Prednisolone Acetate 2 drop LEFT EYE DAILY 06/04/18 Tetrahydrz/Dext 70/Peg 400/Pvp 1 drop RIGHT EYE BID 06/04/18 [Visine Advanced Eye Drop] Past Medical History (Chronic Problems): Chronic Problems Obstructive sleep apnea (Chronic) Respiratory failure with hypoxia (Chronic) Pulmonary fibrosis (Chronic) Acute kidney injury superimposed on chronic kidney disease (Chronic) Obesity (Chronic) Hypertension (Chronic) Depression (Chronic) Controlled diabetes mellitus type II without complication (Chronic) Surgical History: cholecystectomy, tonsillectomy - *Family History Maternal History Items: Diabetes, Heart Disease Paternal History Items: - - from prostate cancer Lives: Alone Smoking Status: Former smoker Tobacco Use: Cigarettes Alcohol: None Drugs: None Review of Systems - Review of Systems General: Reports: Fatigue, Malaise. Denies: Fever, Night Sweats HEENT: Denies: Vision Change Cardiovascular: Reports: Shortness of Breath, Shortness of Breath at Rest, Shortness of Breath with Exertion. Denies: Chest Discomfort, Orthopnea, PND, Peripheral Edema, Palpitations, Lightheadedness, Dizziness, Near Syncope, Syncope Respiratory: Denies: Cough, Sputum Production, Hemoptysis Gastrointestinal: Denies: Hematemesis, Hematochezia, Melena Genitourinary: Denies: Dysuria, Hematuria Muscoloskeletal: Denies: Myalgias Skin: Denies: Rash Neurological: Denies: Dizziness Psychiatric: Denies: Anxiety Endocrine: Denies: Unexplained Weight Loss Hematologic/ Lymphatic: Denies: Anemia Subjectve: Middle-aged lady in no distress intubated and sedated Objective: Vital Signs Temp Pulse Resp BP Pulse Ox 96.3 F L 66 16 97/65 99 06/07/18 16:00 06/07/18 18:03 06/07/18 18:03 06/07/18 17:15 06/07/18 18:03 Oxygen Flow Rate (L/min) 15 Oxygen Delivery Method Mechanical Ventilator Weight: 299 lb 6.204 oz Body Mass Index (BMI) 51.5 Finger Stick Blood Glucose 70 Intake and Output for Last 24 Hours 06/05/18 06/06/18 06/07/18 23:59 23:59 23:59 Intake Total 1094 / 1094 1078.9 / 1078.9 926.1 / 926.1 Output Total 1350 / 1350 2099 / 2100 160 / 160 Balance -256 / -256 -1021.1 / -1021.1 766.1 / 766.1 General: Awake, Alert, Oriented x 3 HEENT: PERRL, EOMI, Sclera Non Icteric Neck: Supple, Good ROM, No Lymph Node Enlargement Lungs: Clear to auscultation Cardiovascular: Regular Rhythm, Normal S1, Normal S2, No Murmurs, No Rubs, No Gallops Vascular: No Carotid Bruits, Normal Femoral Pulses, Normal Radial Pulses, Normal Dorsalis Pedal Pulse, Normal Posterior Tibial Pulses Abdomen: Bowel Sounds Present, Soft, Non Tender, No HSM, No Organomegaly Extremities: No Cyanosis, No Clubbing, Bilateral Edema +2 Skin: No Rashes Lymphatic: No Lymph Node Enlargement Neurological: No Focal Motor or Sensory Deficit Psych/Mental Status: Appropriate 06/07/18 02:50: WBC 9.7, RBC 2.28 L, Hgb 7.3 L, Hct 22.7 L, MCV 99.6 H, MCH 32.0, MCHC 32.2, RDW 15.3 H, RDW Differential 55.3 H, Plt Count 210, MPV 9.3, Immature Gran % (Auto) 0.100, Neut % (Auto) 90.9 H, Lymph % (Auto) 5.9 L, [place] % (Auto) 3.1, Eos % (Auto) 0.0, Baso % (Auto) 0.0, Absolute Neuts (auto) 8.8 H, Total Counted Not Reportable 06/07/18 02:50: Sodium 135 L, Potassium 5.9 H, Chloride 105, Carbon Dioxide 23.0, Anion Gap 7, BUN 74 H, Creatinine 3.87 H, Est GFR (MDRD) Af Amer 15 L, Est GFR (MDRD) Non-Af 12 L, BUN/Creatinine Ratio 19.1, Glucose 259 H, Calcium 8.0 L 06/07/18 05:21: pH 7.22 L, Bicarbonate Actual 20.0 L, POC Total CO2 21, Base Excess -8 L, O2 Saturation 96, ABG pCO2 48.8 H, ABG pO2 103 H 06/07/18 10:30: PT 18.5 H, INR 1.6, APTT 35.1 06/07/18 13:00: Sodium 134 L, Potassium 5.8 H, Chloride 104, Carbon Dioxide 22.0, Anion Gap 8, BUN 91 H, Creatinine 4.50 H, Est GFR (MDRD) Af Amer 13 L, Est GFR (MDRD) Non-Af 11 L, BUN/Creatinine Ratio 20.2 H, Glucose 272 H, Calcium 8.1 L, Phosphorus 7.9 H, Magnesium 2.5 Rhythm: Junctional rhythm with a rate of 40 bpm Echocardiogram demonstrates preserved ejection fraction estimated to be 65% with pulmonary systolic pressure of 56 mmHg. Assessment/Plan 1. Junctional bradycardia The etiology of the above is likely secondary to the elevated potassium. Patient was started on dialysis and her rhythm has normalized for normal sinus rhythm. She is maintaining a decent blood pressure. My recommendation would be to continue dialysis and protocols to keep her potassium less than 4.5. Her losartan should be discontinued at this time. 2. Hypotension Her hypotension was likely on the basis of sepsis. She does have preserved ejection fraction we will continue to see how she does with the dialysis. 3. Pulmonary hypertension She does have evidence of pulmonary hypertension and will continue with her dialysis to see whether this would improve her pulmonary pressures. Does have a history of pulmonary fibrosis and this may be playing a role. Thank you for allowing me to participate in the care of your patient. Please don't hesitate to call if any issues arise
--- NOTE | 2018-06-07 18:21 | CON.PCM_ITS ---
Reason for Consult Date of Consultation: 06/07/18 Reason for Consultation: Abnormal heart rhythm History of Present Illness: The patient is a 63 year old F, who presented to [facility] on 06/04/2018 secondary to progressive shortness of breath. Patient reportedly had reported worsening shortness of breath over the last 2-3 months, but this was significant over the last 1-2 weeks. Patient states this was associated with nasal congestion, nonproductive cough and subjective fevers. Patient did not have any documented fevers and denied any headache, chest pain orthopnea or PND. Patient had reportedly presented to the urgent care center and was found to have a pulse ox in the 70s, so was transported to the ER for further evaluation.In the emergency room, patient was requiring 4-5 L nasal cannula to maintain the saturation of 90%. CT scan of the chest showed some possible early pneumonia versus CHF and a lactic acidosis that was suspected to be secondary to hypoxia. Patient was given IV antibiotics and diuretic therapy and admitted to the PCU. Shortly after arrival to the PCU, she started to require 100% FiO2. After arrival to the intensive care unit, the patient had to be intubated for supportive care. She was noted to be in a junctional rhythm and cardiology was called to assist in the management. Of note was the fact that the patient was noted to be hyperkalemic. At the time of the consultation there were plans to dialyze her today. No other history was immediately available. Past Medical History Allergies/Adverse Reactions: Allergies haloperidol [From Haldol] Allergy (Verified 06/04/18 11:53) Rash haloperidol lactate [From Haldol] Allergy (Verified 06/04/18 11:53) Rash Home Medications: Ambulatory Orders Medication Instructions Recorded Citalopram [Celexa] 40 mg PO DAILY 02/05/15 Amlodipine Besylate [Norvasc] 10 mg PO DAILY 06/04/18 Atorvastatin Calcium [Lipitor] 40 mg PO QHS 06/04/18 Cyclopentolate HCl 1 drop LEFT EYE QHS 06/04/18 Gabapentin [Neurontin] 300 mg PO BID 06/04/18 Insulin NPH Human Isophane 30 unit SQ BID 06/04/18 [Novolin N] Insulin Regular, Human [Novolin R] 30 unit SQ TIDCM 06/04/18 Losartan Potassium 100 mg PO DAILY 06/04/18 Montelukast [Singulair] 10 mg PO QHS 06/04/18 Nintedanib Esylate [Ofev] 150 mg PO BIDCM 06/04/18 Pantoprazole Sodium [Protonix] 20 mg PO DAILY 06/04/18 Prednisolone Acetate 2 drop LEFT EYE DAILY 06/04/18 Tetrahydrz/Dext 70/Peg 400/Pvp 1 drop RIGHT EYE BID 06/04/18 [Visine Advanced Eye Drop] Past Medical History (Chronic Problems): Chronic Problems Obstructive sleep apnea (Chronic) Respiratory failure with hypoxia (Chronic) Pulmonary fibrosis (Chronic) Acute kidney injury superimposed on chronic kidney disease (Chronic) Obesity (Chronic) Hypertension (Chronic) Depression (Chronic) Controlled diabetes mellitus type II without complication (Chronic) Surgical History: cholecystectomy, tonsillectomy - *Family History Maternal History Items: Diabetes, Heart Disease Paternal History Items: - - from prostate cancer Lives: Alone Smoking Status: Former smoker Tobacco Use: Cigarettes Alcohol: None Drugs: None Review of Systems - Review of Systems General: Reports: Fatigue, Malaise. Denies: Fever, Night Sweats HEENT: Denies: Vision Change Cardiovascular: Reports: Shortness of Breath, Shortness of Breath at Rest, Shortness of Breath with Exertion. Denies: Chest Discomfort, Orthopnea, PND, Peripheral Edema, Palpitations, Lightheadedness, Dizziness, Near Syncope, Syncope Respiratory: Denies: Cough, Sputum Production, Hemoptysis Gastrointestinal: Denies: Hematemesis, Hematochezia, Melena Genitourinary: Denies: Dysuria, Hematuria Muscoloskeletal: Denies: Myalgias Skin: Denies: Rash Neurological: Denies: Dizziness Psychiatric: Denies: Anxiety Endocrine: Denies: Unexplained Weight Loss Hematologic/ Lymphatic: Denies: Anemia Subjectve: Middle-aged lady in no distress intubated and sedated Objective: Vital Signs Temp Pulse Resp BP Pulse Ox 96.3 F L 66 16 97/65 99 06/07/18 16:00 06/07/18 18:03 06/07/18 18:03 06/07/18 17:15 06/07/18 18:03 Oxygen Flow Rate (L/min) 15 Oxygen Delivery Method Mechanical Ventilator Weight: 299 lb 6.204 oz Body Mass Index (BMI) 51.5 Finger Stick Blood Glucose 70 Intake and Output for Last 24 Hours 06/05/18 06/06/18 06/07/18 23:59 23:59 23:59 Intake Total 1094 / 1094 1078.9 / 1078.9 926.1 / 926.1 Output Total 1350 / 1350 2099 / 2100 160 / 160 Balance -256 / -256 -1021.1 / -1021.1 766.1 / 766.1 General: Awake, Alert, Oriented x 3 HEENT: PERRL, EOMI, Sclera Non Icteric Neck: Supple, Good ROM, No Lymph Node Enlargement Lungs: Clear to auscultation Cardiovascular: Regular Rhythm, Normal S1, Normal S2, No Murmurs, No Rubs, No Gallops Vascular: No Carotid Bruits, Normal Femoral Pulses, Normal Radial Pulses, Normal Dorsalis Pedal Pulse, Normal Posterior Tibial Pulses Abdomen: Bowel Sounds Present, Soft, Non Tender, No HSM, No Organomegaly Extremities: No Cyanosis, No Clubbing, Bilateral Edema +2 Skin: No Rashes Lymphatic: No Lymph Node Enlargement Neurological: No Focal Motor or Sensory Deficit Psych/Mental Status: Appropriate 06/07/18 02:50: WBC 9.7, RBC 2.28 L, Hgb 7.3 L, Hct 22.7 L, MCV 99.6 H, MCH 32.0, MCHC 32.2, RDW 15.3 H, RDW Differential 55.3 H, Plt Count 210, MPV 9.3, Immature Gran % (Auto) 0.100, Neut % (Auto) 90.9 H, Lymph % (Auto) 5.9 L, [place] % (Auto) 3.1, Eos % (Auto) 0.0, Baso % (Auto) 0.0, Absolute Neuts (auto) 8.8 H, Total Counted Not Reportable 06/07/18 02:50: Sodium 135 L, Potassium 5.9 H, Chloride 105, Carbon Dioxide 23.0, Anion Gap 7, BUN 74 H, Creatinine 3.87 H, Est GFR (MDRD) Af Amer 15 L, Est GFR (MDRD) Non-Af 12 L, BUN/Creatinine Ratio 19.1, Glucose 259 H, Calcium 8.0 L 06/07/18 05:21: pH 7.22 L, Bicarbonate Actual 20.0 L, POC Total CO2 21, Base Excess -8 L, O2 Saturation 96, ABG pCO2 48.8 H, ABG pO2 103 H 06/07/18 10:30: PT 18.5 H, INR 1.6, APTT 35.1 06/07/18 13:00: Sodium 134 L, Potassium 5.8 H, Chloride 104, Carbon Dioxide 22.0, Anion Gap 8, BUN 91 H, Creatinine 4.50 H, Est GFR (MDRD) Af Amer 13 L, Est GFR (MDRD) Non-Af 11 L, BUN/Creatinine Ratio 20.2 H, Glucose 272 H, Calcium 8.1 L, Phosphorus 7.9 H, Magnesium 2.5 Rhythm: Junctional rhythm with a rate of 40 bpm Echocardiogram demonstrates preserved ejection fraction estimated to be 65% with pulmonary systolic pressure of 56 mmHg. Assessment/Plan 1. Junctional bradycardia * The etiology of the above is likely secondary to the elevated potassium. Patient was started on dialysis and her rhythm has normalized for normal sinus rhythm. She is maintaining a decent blood pressure. My recommendation would be to continue dialysis and protocols to keep her potassium less than 4.5. * Her losartan should be discontinued at this time. * 2. Hypotension * Her hypotension was likely on the basis of sepsis. She does have preserved ejection fraction we will continue to see how she does with the dialysis. * 3. Pulmonary hypertension * She does have evidence of pulmonary hypertension and will continue with her dialysis to see whether this would improve her pulmonary pressures. * Does have a history of pulmonary fibrosis and this may be playing a role. * Thank you for allowing me to participate in the care of your patient. Please don't hesitate to call if any issues arise
[2018-06-07] MEDS: Atorvastatin Calcium 40 MG Tablet GT (22:18)
[2018-06-07] MEDS: Cyclopentolate 1% 2 ML Bottle 1 DRP LEFT EYE (22:19)
[2018-06-08] VITALS (41 sets, daily range): BP systolic 93–158; BP diastolic 50–83; PULSE 67–95; RESP 14–27; TEMP 35.8–36.8; O2SAT 83–100
[2018-06-08] MEDS: Insulin Lispro 100 UNIT/ML INSULN.PEN SQ ×5 (00:03→23:06)
[2018-06-08] MEDS: fentaNYL drip 100 ML 5 MCG IV ×4 (00:04→21:35)
[2018-06-08 00:21] LABS: Bedside Glucose 224 mg/dL (70-110)
[2018-06-08 04:07] LABS: Absolute Lymphocyte Count 0.75 X10^3/ul (0.83-4.51); Absolute Neutrophil Count 13.2 X10^3/uL (2.0-7.7); Hematocrit 24.5 % (37-47); Hemoglobin 7.9 g/dl (12.0-15.0); Lymphocyte # 0.75 X10^3/ul (4.0); Lymphocyte % 5.2 % (19-41); Mean Corp Hgb Conc 32.2 g/gl (32-36); Mean Corpuscular Hgb 31.7 pg (27.0-32.0); Mean Corpuscular Volume 98.4 fL (81-99); Mean Platelet Vol. 9.5 fl (6.2-12.0); Monocyte# 0.49 X10^3/uL; Monocyte% 3.4 % (0-10); Neutrophil # 13.23 X10^3/uL (2.7-7.7); Neutrophil % 91.3 % (47-70); Platelet Count 291 K/mm3 (150-450); RBC Distribution Width CV 15.1 % (11.6-14.6); RBC Distribution Width SD 54.3 fl (35.1-43.9); Red Blood Count 2.49 M/mm3 (4.2-5.4); White Blood Count 14.5 K/mm3 (4.4-11.0)
[2018-06-08 04:11] LABS: POSITIVE COUNT NO; POSITIVE DIFFERENTIAL NO; POSITIVE MORPHOLOGY NO
[2018-06-08 04:14] LABS: Anion Gap 14 (5-15); BUN 74 mg/dL (7-18); BUN/Creat Ratio 20.3 RATIO (10-20); Chloride 100 mmol/L (98-107); Creatinine, Serum 3.65 mg/dL (0.55-1.02); EST Glomerular Filtration Rate 13 mL/min (>60); Est Glom Filt Rate - Afr Amer 16 mL/min (>60); Estimated Creatinine Clearance 14.01 ml/min; Glucose 272 mg/dL (74-106); Magnesium 2.4 mg/dL (1.6-2.6); Phosphorus 7.4 mg/dL (2.5-4.9); Potassium 4.4 mmol/L (3.5-5.1); Sodium Level 139 mmol/L (136-145)
[2018-06-08] MEDS: CHLORHEXIDINE GLUC 2% CLOTH 1 EACH TOWELETTE TOPICAL (05:52)
[2018-06-08] MEDS: Enoxaparin 30 MG/0.3 ML Syringe SC (05:52)
[2018-06-08] MEDS: Propofol 10MG/Ml 1,000 MG/100 ML Bottle 8.232 MG CONT INF ×3 (06:10→19:46)
[2018-06-08 06:31] LABS: Bedside Glucose 301 mg/dL (70-110)
--- NOTE | 2018-06-08 06:52 | EKG12_ITS ---
Test Reason : MELISA PA Blood Pressure : / mmHG Vent. Rate : 087 BPM Atrial Rate : 087 BPM P-R Int : 182 ms QRS Dur : 120 ms QT Int : 408 ms P-R-T Axes : 048 061 -21 degrees QTc Int : 490 ms Normal sinus rhythm with sinus arrhythmia Right bundle branch block Marked T-wave abnormality, consider inferolateral ischemia Abnormal ECG No previous ECGs available Confirmed by KIRK FALK, JEREMY ([id number]), restaurant expeditor SHERRY ROGER ([id number]) on 06/24/2018 1:38:21 PM Referred By: Confirmed By:JEREMY BRADLEY MD
[2018-06-08] MEDS: Ipratropium/Albuterol Sulfate 3 ML AMPUL.NEB INHALATION ×4 (07:06→19:05)
--- NOTE | 2018-06-08 07:14 | PCM.PN.INT ---
Subjective: Patient did okay overnight. Patient's junctional rhythm did improve rapidly with hemodialysis. Blood pressure and heart rate of been much more appropriate overnight. No pressors have been required. Patient has been able to be weaned on PEEP slightly. Respiratory reports significant increase in secretions over the last 24 hours. Patient's urine output is also improved. General: Alert, Cooperative, No apparent distress, - - Morbidly obese. Following commands. RASS 0. HEENT: Atraumatic, PERRLA, EOMI, Normocephalic, - - No scleral icterus or injection noted. Oral: Moist Mucosa, No Gingival or Mucosal Lesions/ Ulcerations Neck: Supple, Trachea Midline, - - Hemodialysis line and central line are clean, dry and intact. Lungs: No wheeze, No rales, Diminished, Rhonchi - Bilateral, - - Symmetric expansion. No dullness to percussion. Cardiovascular: Regular rate, Regular Rhythm, Normal S1, Normal S2, No murmurs, No rub noted, No Gallop Abdomen: Bowel Sounds Present, Soft, Non Tender, Non-Distended, Obese Extremities: No clubbing, No cyanosis, Edema Skin: - - No significant change compared to previous Musculoskeletal: No Tenderness to Palpation of Joints or Extremities Lymphatic: No Cervical, Supraclavicular, or Inguinal Adenopathy Neurological: Cranial nerves II-XII grossly intact, Neuro grossly intact, Motor Exam 5/5 strength throughout Psych/Mental Status: Appropriate, Impulsive Vital Signs Temp Pulse Resp BP Pulse Ox 36.1 C L 87 20 H 158/77 H 94 06/08/18 04:00 06/08/18 06:00 06/08/18 06:00 06/08/18 06:00 06/08/18 06:00 Oxygen Flow Rate (L/min) 15 Oxygen Delivery Method Mechanical Ventilator Weight: 134.8 kg Body Mass Index (BMI) 51.5 Finger Stick Blood Glucose 70 Intake and Output for Last 24 Hours 06/06/18 06/07/18 06/08/18 23:59 23:59 23:59 Intake Total 1078.9 / 1078.9 1238.1 / 1238.1 1181.8 / 1181.8 Output Total 2100 / 2100 195 / 195 450 / 450 Balance -1021.1 / -1021.1 1043.1 / 1043.1 731.8 / 731.8 Labs (Last 48 Hours) 06/06/18 06/06/18 06/06/18 05:20 09:07 10:10 WBC RBC Hgb Hct MCV MCH MCHC RDW RDW Differential Plt Count MPV Immature Gran % (Auto) Neut % (Auto) Lymph % (Auto) Whitman % (Auto) Eos % (Auto) Baso % (Auto) Absolute Neuts (auto) Absolute Lymphs (auto) Total Counted Differential Comment Platelet Estimate Polychromasia Hypochromasia Anisocytosis PT INR APTT D-Dimer Quant (PE/DVT) 2.94 H* Specimen Type ART Sample Site L Radial pH 7.27 L Bicarbonate Actual 20.8 L POC Total CO2 22 Base Excess -6 L O2 Saturation 92 L O2 % 100 ABG pCO2 45.7 H ABG pO2 74 L Lazaro Test POS Respiration Rate O2 Delivery Device Bi / C PAP Minute Volume Vent Mode Tidal Volume POC PEEP EPAP 10 Blood Gas Notified Whom [facility] Blood Gas Notified Time 900 Sodium Potassium Chloride Carbon Dioxide Anion Gap BUN Creatinine Estim Creat Clear Calc Est GFR (MDRD) Af Amer Est GFR (MDRD) Non-Af BUN/Creatinine Ratio Glucose Calcium Phosphorus Magnesium Total Creatine Kinase 234 H Triglycerides 107 Hep Bs Antigen Hep Bs Antibody Hep B Core Total Ab POC Glucose 06/06/18 06/06/18 06/06/18 11:25 12:45 15:28 WBC RBC Hgb 7.6 L Hct 25.4 L MCV MCH MCHC RDW RDW Differential Plt Count MPV Immature Gran % (Auto) Neut % (Auto) Lymph % (Auto) Whitman % (Auto) Eos % (Auto) Baso % (Auto) Absolute Neuts (auto) Absolute Lymphs (auto) Total Counted Differential Comment Platelet Estimate Polychromasia Hypochromasia Anisocytosis PT INR APTT D-Dimer Quant (PE/DVT) Specimen Type Sample Site pH Bicarbonate Actual POC Total CO2 Base Excess O2 Saturation O2 % ABG pCO2 ABG pO2 Lazaro Test Respiration Rate O2 Delivery Device Minute Volume Vent Mode Tidal Volume POC PEEP EPAP Blood Gas Notified Whom Blood Gas Notified Time Sodium Potassium Chloride Carbon Dioxide Anion Gap BUN Creatinine Estim Creat Clear Calc Est GFR (MDRD) Af Amer Est GFR (MDRD) Non-Af BUN/Creatinine Ratio Glucose Calcium Phosphorus Magnesium Total Creatine Kinase Triglycerides Hep Bs Antigen Hep Bs Antibody Hep B Core Total Ab POC Glucose 170 H 241 H 06/06/18 06/06/18 06/06/18 15:47 17:51 23:53 WBC RBC Hgb Hct MCV MCH MCHC RDW RDW Differential Plt Count MPV Immature Gran % (Auto) Neut % (Auto) Lymph % (Auto) Whitman % (Auto) Eos % (Auto) Baso % (Auto) Absolute Neuts (auto) Absolute Lymphs (auto) Total Counted Differential Comment Platelet Estimate Polychromasia Hypochromasia Anisocytosis PT INR APTT D-Dimer Quant (PE/DVT) Specimen Type ART Sample Site R Radial pH 7.22 L Bicarbonate Actual 19.4 L POC Total CO2 21 Base Excess -8 L O2 Saturation 85 L O2 % 60 ABG pCO2 47.7 H ABG pO2 61 L Lazaro Test POS Respiration Rate 16 O2 Delivery Device Vent Minute Volume 10.00 Vent Mode A-C Tidal Volume 400 POC PEEP 16 EPAP Blood Gas Notified Whom ICU Blood Gas Notified Time 1546 Sodium Potassium Chloride Carbon Dioxide Anion Gap BUN Creatinine Estim Creat Clear Calc Est GFR (MDRD) Af Amer Est GFR (MDRD) Non-Af BUN/Creatinine Ratio Glucose Calcium Phosphorus Magnesium Total Creatine Kinase Triglycerides Hep Bs Antigen Hep Bs Antibody Hep B Core Total Ab POC Glucose 256 H 250 H 06/07/18 06/07/18 06/07/18 02:50 02:50 05:21 WBC 9.7 RBC 2.28 L Hgb 7.3 L Hct 22.7 L MCV 99.6 H MCH 32.0 MCHC 32.2 RDW 15.3 H RDW Differential 55.3 H Plt Count 210 MPV 9.3 Immature Gran % (Auto) 0.100 Neut % (Auto) 90.9 H Lymph % (Auto) 5.9 L Whitman % (Auto) 3.1 Eos % (Auto) 0.0 Baso % (Auto) 0.0 Absolute Neuts (auto) 8.8 H Absolute Lymphs (auto) 0.57 L Total Counted Not Reportable Differential Comment Platelet Estimate ADEQUATE Polychromasia RARE Hypochromasia RARE Anisocytosis RARE PT INR APTT D-Dimer Quant (PE/DVT) Specimen Type ART Sample Site R Radial pH 7.22 L Bicarbonate Actual 20.0 L POC Total CO2 21 Base Excess -8 L O2 Saturation 96 O2 % 70 ABG pCO2 48.8 H ABG pO2 103 H Lazaro Test Respiration Rate 16 O2 Delivery Device Vent Minute Volume 8.00 Vent Mode A-C Tidal Volume 450 POC PEEP 16 EPAP Blood Gas Notified Whom ICU MD Blood Gas Notified Time 515 Sodium 135 L Potassium 5.9 H Chloride 105 Carbon Dioxide 23.0 Anion Gap 7 BUN 74 H Creatinine 3.87 H Estim Creat Clear Calc 13.21 Est GFR (MDRD) Af Amer 15 L Est GFR (MDRD) Non-Af 12 L BUN/Creatinine Ratio 19.1 Glucose 259 H Calcium 8.0 L Phosphorus Magnesium Total Creatine Kinase Triglycerides Hep Bs Antigen Hep Bs Antibody Hep B Core Total Ab POC Glucose 06/07/18 06/07/18 06/07/18 06:17 10:30 13:00 WBC RBC Hgb Hct MCV MCH MCHC RDW RDW Differential Plt Count MPV Immature Gran % (Auto) Neut % (Auto) Lymph % (Auto) Whitman % (Auto) Eos % (Auto) Baso % (Auto) Absolute Neuts (auto) Absolute Lymphs (auto) Total Counted Differential Comment Platelet Estimate Polychromasia Hypochromasia Anisocytosis PT 18.5 H INR 1.6 APTT 35.1 D-Dimer Quant (PE/DVT) Specimen Type Sample Site pH Bicarbonate Actual POC Total CO2 Base Excess O2 Saturation O2 % ABG pCO2 ABG pO2 Lazaro Test Respiration Rate O2 Delivery Device Minute Volume Vent Mode Tidal Volume POC PEEP EPAP Blood Gas Notified Whom Blood Gas Notified Time Sodium 134 L Potassium 5.8 H Chloride 104 Carbon Dioxide 22.0 Anion Gap 8 BUN 91 H Creatinine 4.50 H Estim Creat Clear Calc 11.36 Est GFR (MDRD) Af Amer 13 L Est GFR (MDRD) Non-Af 11 L BUN/Creatinine Ratio 20.2 H Glucose 272 H Calcium 8.1 L Phosphorus 7.9 H Magnesium 2.5 Total Creatine Kinase Triglycerides Hep Bs Antigen Hep Bs Antibody Hep B Core Total Ab POC Glucose 253 H 06/07/18 06/07/18 06/08/18 13:12 18:09 00:02 WBC RBC Hgb Hct MCV MCH MCHC RDW RDW Differential Plt Count MPV Immature Gran % (Auto) Neut % (Auto) Lymph % (Auto) Whitman % (Auto) Eos % (Auto) Baso % (Auto) Absolute Neuts (auto) Absolute Lymphs (auto) Total Counted Differential Comment Platelet Estimate Polychromasia Hypochromasia Anisocytosis PT INR APTT D-Dimer Quant (PE/DVT) Specimen Type Sample Site pH Bicarbonate Actual POC Total CO2 Base Excess O2 Saturation O2 % ABG pCO2 ABG pO2 Lazaro Test Respiration Rate O2 Delivery Device Minute Volume Vent Mode Tidal Volume POC PEEP EPAP Blood Gas Notified Whom Blood Gas Notified Time Sodium Potassium Chloride Carbon Dioxide Anion Gap BUN Creatinine Estim Creat Clear Calc Est GFR (MDRD) Af Amer Est GFR (MDRD) Non-Af BUN/Creatinine Ratio Glucose Calcium Phosphorus Magnesium Total Creatine Kinase Triglycerides Hep Bs Antigen Hep Bs Antibody Hep B Core Total Ab POC Glucose 243 H 183 H 224 H 06/08/18 06/08/18 06/08/18 03:45 03:45 03:45 WBC 14.5 H RBC 2.49 L Hgb 7.9 L Hct 24.5 L MCV 98.4 MCH 31.7 MCHC 32.2 RDW 15.1 H RDW Differential 54.3 H Plt Count 291 MPV 9.5 Immature Gran % (Auto) 0.100 Neut % (Auto) 91.3 H Lymph % (Auto) 5.2 L Whitman % (Auto) 3.4 Eos % (Auto) 0.0 Baso % (Auto) 0.0 Absolute Neuts (auto) 13.2 H Absolute Lymphs (auto) 0.75 L Total Counted Not Reportable Differential Comment Platelet Estimate Polychromasia Hypochromasia Anisocytosis PT INR APTT D-Dimer Quant (PE/DVT) Specimen Type Sample Site pH Bicarbonate Actual POC Total CO2 Base Excess O2 Saturation O2 % ABG pCO2 ABG pO2 Lazrao Test Respiration Rate O2 Delivery Device Minute Volume Vent Mode Tidal Volume POC PEEP EPAP Blood Gas Notified Whom Blood Gas Notified Time Sodium 139 Potassium 4.4 Chloride 100 Carbon Dioxide 25.0 Anion Gap 14 BUN 74 H Creatinine 3.65 H Estim Creat Clear Calc 14.01 Est GFR (MDRD) Af Amer 16 L Est GFR (MDRD) Non-Af 13 L BUN/Creatinine Ratio 20.3 H Glucose 272 H Calcium 8.0 L Phosphorus 7.4 H Magnesium 2.4 Total Creatine Kinase Triglycerides Hep Bs Antigen Pending Hep Bs Antibody Pending Hep B Core Total Ab Pending POC Glucose 06/08/18 05:49 WBC RBC Hgb Hct MCV MCH MCHC RDW RDW Differential Plt Count MPV Immature Gran % (Auto) Neut % (Auto) Lymph % (Auto) Whitman % (Auto) Eos % (Auto) Baso % (Auto) Absolute Neuts (auto) Absolute Lymphs (auto) Total Counted Differential Comment Platelet Estimate Polychromasia Hypochromasia Anisocytosis PT INR APTT D-Dimer Quant (PE/DVT) Specimen Type Sample Site pH Bicarbonate Actual POC Total CO2 Base Excess O2 Saturation O2 % ABG pCO2 ABG pO2 Lazaro Test Respiration Rate O2 Delivery Device Minute Volume Vent Mode Tidal Volume POC PEEP EPAP Blood Gas Notified Whom Blood Gas Notified Time Sodium Potassium Chloride Carbon Dioxide Anion Gap BUN Creatinine Estim Creat Clear Calc Est GFR (MDRD) Af Amer Est GFR (MDRD) Non-Af BUN/Creatinine Ratio Glucose Calcium Phosphorus Magnesium Total Creatine Kinase Triglycerides Hep Bs Antigen Hep Bs Antibody Hep B Core Total Ab POC Glucose 301 H Microbiology 06/06/18 14:40 Sputum, Induced/Lukens Gram Stain - Final 06/06/18 14:40 Sputum, Induced/Lukens Respiratory Culture - Preliminary Appears to be normal respiratory carlos. Further studies to follow. 06/04/18 15:15 Blood Culture (Wb) - Right Hand Blood Culture - Preliminary No growth in 48 hours. 06/04/18 12:03 Blood Culture (Wb) - Anticubital Left Blood Culture - Preliminary No growth in 48 hours. Clinical Impression(s) from Imaging Studies Chest X-Ray 06/07/18 12:49 IMPRESSION: Pulmonary edema. Electronically Signed: Karena Hawk, at 13:53 EDT Tel , Service support , Medical Necessity - Tobacco Use Smoking Status: Former smoker Tobacco Use: Cigarettes Assessment/Plan All Active Problems Severe sepsis (Acute) Hyperkalemia (Acute) Metabolic acidosis (Acute) Tobacco use disorder (Resolved) Cocaine dependence, episodic (Resolved) RECOMMENDATIONS: 1. Continue to wean PEEP as tolerated once FiO2 less than 60 2. Probable hemodialysis later today 3. Repeat sputum culture 4. Continue antibiotics, steroids and mucolytic 5. Continue tube feeds IMPRESSIONS: 1. Acute on chronic combined respiratory failure with possible ARDS Unclear etiology at this time. Patient has not responded to diuretic therapy. Patient does have moderate pulmonary hypertension, pulmonary fibrosis and diastolic congestive heart failure. Patient's OFEV has been on hold. It is unlikely this is going to make an acute difference. Patient's oxygenation continues to improve. Initial sputum culture did not show pathologic organisms, but sputum production has significantly worsened following hemodialysis. Will send for culture. Continue with empiric antibiotics for now. 2. Acute on chronic diastolic congestive heart failure versus cor pulmonale/junctional rhythm Patient has been receiving diuretic therapy secondary to a mildly elevated BNP. Given apical predominance, there is lower clinical suspicion for a predominant congestive heart failure component. We will continue to monitor. Troponins have been negative. Patient's junctional bradycardia appears to be significantly improved following hemodialysis indicating probable hypokalemia as the cause. Cardiology is following the patient. 3. Diabetes mellitus type 2 Patient will be initiated on tube feeds. We will need to watch blood sugars closely given concomitant steroid therapy. Sliding scale insulin has been ordered. Initiate basal insulin today. May need to titrate up as patient continues to be on tube feeds. 4. Oliguric acute renal failure Patient with significant acidosis and hyperkalemia with decreasing urine output. Patient did receive hemodialysis yesterday. Patient tolerated this well. Defer to nephrology if patient is to be dialyzed today. Urine output appears to be somewhat improved 5. Morbid obesity/CKD stage III/hypertension/hyperlipidemia/depression/GERD/history of smoking Complicates care, management, recovery and prognosis. Okay to continue with baseline medications for now. TIME: 33 minutes of critical care time spent addressing patient's acute on chronic respiratory failure, congestive heart failure, ARDS, clarification of CODE STATUS, review of all data and collaboration with care team (6:20 AM to 7:20 AM) Code Visit [id number]: [id number] Critical care first hour
[2018-06-08] MEDS: Glycerin/Hypromellose/PEG400 15 ml Bottle 1 DRP RIGHT EYE ×2 (09:37→21:04)
[2018-06-08] MEDS: Chlorhexidine 15 ML PO ×2 (09:37→21:02)
[2018-06-08] MEDS: prednisoLONE eye drops (5 mL) 1 DROP OPTH.BTL 2 DRP LEFT EYE (09:38)
--- NOTE | 2018-06-08 11:29 | NURSING ---
Dialysis complete-1500ml removed, PT tolerated well
[2018-06-08] MEDS: Heparin 10,000 UNITS/10 ML Vial IV (11:33)
[2018-06-08] MEDS: Senna Tablet 2 TABLET GT (11:41)
[2018-06-08] MEDS: Gabapentin 300 MG Capsule GT ×2 (11:42→21:03)
[2018-06-08] MEDS: Famotidine 20 MG Tablet GT (11:42)
[2018-06-08] MEDS: Citalopram 40 MG TABLET GT (11:42)
[2018-06-08 12:41] LABS: Bedside Glucose 218 mg/dL (70-110)
--- NOTE | 2018-06-08 14:32 | PN.RENAL_ITS ---
Patient Problems: Active and Suspected Problems Severe sepsis (Acute) Hyperkalemia (Acute) Metabolic acidosis (Acute) Subjective: intubated sedated - Physical Exam HEENT: Atraumatic, PERRLA, EOMI, Normocephalic Neck: Supple, No JVD, Negative Carotid Bruits Lungs: Clear to auscultation, Normal air movement Cardiovascular: Regular rate, No murmurs Abdomen: Bowel Sounds Present, Soft, Non Tender Extremities: No edema, Capillary Refill Less than 3 Seconds Skin: No rashes, No breakdown Psych/Mental Status: Normal Affect, Appropriate Vital Signs Temp Pulse Resp BP Pulse Ox 97.2 F L 94 18 151/83 H 83 06/08/18 12:00 06/08/18 13:30 06/08/18 13:30 06/08/18 12:00 06/08/18 13:30 Oxygen Flow Rate (L/min) 15 Oxygen Delivery Method Mechanical Ventilator Weight: 134.8 kg Body Mass Index (BMI) 51.5 Finger Stick Blood Glucose 70 Intake and Output for Last 24 Hours 06/06/18 06/07/18 06/08/18 23:59 23:59 23:59 Intake Total 1078.9 / 1078.9 1238.1 / 1238.1 1918.8 / 1918.8 Output Total 2100 / 2100 195 / 195 2150 / 2150 Balance -1021.1 / -1021.1 1043.1 / 1043.1 -231.2 / -231.2 Microbiology Past 72 Hours 06/06/18 14:40 Gram Stain - Final Sputum, Induced/Lukens Respiratory Culture - Preliminary Appears to be normal respiratory carlos. Further studies to follow. 06/04/18 15:15 Blood Culture - Preliminary Blood Culture (Wb) - Right Hand No growth in 48 hours. 06/04/18 12:03 Blood Culture - Preliminary Blood Culture (Wb) - Anticubital Left No growth in 48 hours. Laboratory Tests Past 24 Hrs 06/08/18 06/08/18 06/08/18 03:45 03:45 03:45 WBC 14.5 H RBC 2.49 L Hgb 7.9 L Hct 24.5 L MCV 98.4 MCH 31.7 MCHC 32.2 RDW 15.1 H RDW Differential 54.3 H Plt Count 291 MPV 9.5 Immature Gran % (Auto) 0.100 Neut % (Auto) 91.3 H Lymph % (Auto) 5.2 L [place] % (Auto) 3.4 Eos % (Auto) 0.0 Baso % (Auto) 0.0 Absolute Neuts (auto) 13.2 H Absolute Lymphs (auto) 0.75 L Total Counted Not Reportable Sodium 139 Potassium 4.4 Chloride 100 Carbon Dioxide 25.0 Anion Gap 14 BUN 74 H Creatinine 3.65 H Estim Creat Clear Calc 14.01 Est GFR (MDRD) Af Amer 16 L Est GFR (MDRD) Non-Af 13 L BUN/Creatinine Ratio 20.3 H Glucose 272 H Calcium 8.0 L Phosphorus 7.4 H Magnesium 2.4 Hep Bs Antigen Pending Hep Bs Antibody Pending Hep B Core Total Ab Pending POC Glucose 06/08/18 06/08/18 06/08/18 11:48 05:49 00:02 POC Glucose 218 H 301 H 224 H 06/07/18 18:09 POC Glucose 183 H Medical Necessity - Tobacco Use Smoking Status: Former smoker Tobacco Use: Cigarettes Assessment/Plan All Active Problems Severe sepsis (Acute) Hyperkalemia (Acute) Metabolic acidosis (Acute) Tobacco use disorder (Resolved) Cocaine dependence, episodic (Resolved) 1-acute kidney injury on chronic kidney disease. Patient has chronic kidney disease stage IV. MARIAN is most probably from sepsis induced ATN. HD started yesterday. Right IJ temporary hemodialysis access is in place. HD today without any issues. able to remove 1.7 L. O2 settings on vent somewhat better 2-hyperkalemia. better 3-Metabolic acidosis: better 4-acute respiratory failure due to ARDS/pneumonia. CXR shows bilateral interstitial markings. edema vs ARDS continue fluid removal as tolerated
--- NOTE | 2018-06-08 16:34 | CPS ---
Patient did not tolerate weaning PEEP so FIO2 was weaned.
--- NOTE | 2018-06-08 16:46 | PN_ITS ---
Patient Problems: Active and Suspected Problems Severe sepsis (Acute) Hyperkalemia (Acute) Metabolic acidosis (Acute) Subjective: Patient was seen and examined today, she remains sedated and on the ventilator, her oxygen requirements have lessened since yesterday, she is tolerating dialysis well. Talked briefly with her significant other today was in the room. - Physical Exam General: - - Patient is sedated on the ventilator HEENT: Atraumatic, PERRLA, Normocephalic Oral: Moist Mucosa Neck: Trachea Midline, Thyroid Normal Size and Texture Lungs: Clear to auscultation, Normal air movement, No rhonchi, No wheeze, No rales Cardiovascular: Regular rate, Regular Rhythm, Normal S1, Normal S2, No murmurs, No Ectopic Activity Abdomen: Bowel Sounds Present, Soft, Non Tender, Non-Distended, Obese, No hernias noted Extremities: No clubbing, No cyanosis, No edema, Capillary Refill Less than 3 Seconds Skin: No rashes, No breakdown Neurological: - - Patient is sedated and on the ventilator Psych/Mental Status: - - Patient is sedated and on the ventilator Vital Signs Temp Pulse Resp BP Pulse Ox 96.5 F L 70 16 106/54 L 99 06/08/18 16:00 06/08/18 16:26 06/08/18 16:26 06/08/18 16:00 06/08/18 16:26 Oxygen Flow Rate (L/min) 15 Oxygen Delivery Method Mechanical Ventilator Weight: 134.8 kg Body Mass Index (BMI) 51.5 Finger Stick Blood Glucose 70 Intake and Output for Last 24 Hours 06/06/18 06/07/18 06/08/18 23:59 23:59 23:59 Intake Total 1078.9 / 1078.9 1238.1 / 1238.1 8 2017.8 Output Total 2100 / 2100 195 / 195 2150 / 2150 Balance -1021.1 / -1021.1 1043.1 / 1043.1 -131.2 / -131.2 Microbiology Past 72 Hours 06/08/18 07:24 Gram Stain - Final Sputum, Tracheal Aspirate 06/06/18 14:40 Gram Stain - Final Sputum, Induced/Lukens Respiratory Culture - Preliminary Appears to be normal respiratory carlos. Further studies to follow. 06/04/18 15:15 Blood Culture - Preliminary Blood Culture (Wb) - Right Hand No growth in 48 hours. 06/04/18 12:03 Blood Culture - Preliminary Blood Culture (Wb) - Anticubital Left No growth in 48 hours. Laboratory Tests Past 24 Hrs 06/08/18 06/08/18 06/08/18 03:45 03:45 03:45 WBC 14.5 H RBC 2.49 L Hgb 7.9 L Hct 24.5 L MCV 98.4 MCH 31.7 MCHC 32.2 RDW 15.1 H RDW Differential 54.3 H Plt Count 291 MPV 9.5 Immature Gran % (Auto) 0.100 Neut % (Auto) 91.3 H Lymph % (Auto) 5.2 L [place] % (Auto) 3.4 Eos % (Auto) 0.0 Baso % (Auto) 0.0 Absolute Neuts (auto) 13.2 H Absolute Lymphs (auto) 0.75 L Total Counted Not Reportable Sodium 139 Potassium 4.4 Chloride 100 Carbon Dioxide 25.0 Anion Gap 14 BUN 74 H Creatinine 3.65 H Estim Creat Clear Calc 14.01 Est GFR (MDRD) Af Amer 16 L Est GFR (MDRD) Non-Af 13 L BUN/Creatinine Ratio 20.3 H Glucose 272 H Calcium 8.0 L Phosphorus 7.4 H Magnesium 2.4 Hep Bs Antigen Pending Hep Bs Antibody Pending Hep B Core Total Ab Pending POC Glucose 06/08/18 06/08/18 06/08/18 11:48 05:49 00:02 POC Glucose 218 H 301 H 224 H 06/07/18 18:09 POC Glucose 183 H Medical Necessity - Tobacco Use Smoking Status: Former smoker Tobacco Use: Cigarettes Assessment/Plan All Active Problems Severe sepsis (Acute) Hyperkalemia (Acute) Metabolic acidosis (Acute) Tobacco use disorder (Resolved) Cocaine dependence, episodic (Resolved) #1 acute on chronic combined respiratory failure-secondary to probable ARDS- continue present treatment at this time, patient remains on the ventilator at this time, critical care is managing her care in the ICU, her oxygen requirement has lessened today #2 acute on chronic diastolic congestive heart failure #3 pulmonary hypertension #4 type 2 diabetes #5 Acute kidney injury on chronic kidney disease stage III secondary to type 2 diabetes-nephrology is seeing the patient, she will continue to undergo dialysis #6 hypertension #7 possible bilateral pneumonia-patient will continue on antibiotic treatment for now #8 hyperkalemia-resolved #9 chronic anemia-etiology unclear, hemoglobin appears to be stable, monitor labs, I will obtain TIBC and iron levels Code Visit Inpatient E&M: 59139 Subs Hosp L2
[2018-06-08 17:09] LABS: Iron 102 ug/dL (50-170); Iron Binding Capacity,Total 227 ug/dL (250-450); PERCENT IRON SATURATION 44.9 % (15.0-55.0)
[2018-06-08 17:56] LABS: Bedside Glucose 319 mg/dL (70-110)
[2018-06-08] MEDS: Vital AF 1.2 Cal Liquid 1,000 ML 60 ML GT (19:46)
[2018-06-08] MEDS: 0.9% NaCl Peripheral Flush Adult/Peds IV (21:02)
[2018-06-08] MEDS: Atorvastatin Calcium 40 MG Tablet GT (21:03)
[2018-06-08] MEDS: Cyclopentolate 1% 2 ML Bottle 1 DRP LEFT EYE (21:04)
[2018-06-08 23:20] LABS: Bedside Glucose 430 mg/dL (70-110)
[2018-06-08] MEDS: Polyethylene Glycol 3350 17 GM PACKET GT (23:53)
[2018-06-09] VITALS (38 sets, daily range): BP systolic 101–131; BP diastolic 49–66; PULSE 62–91; RESP 14–22; TEMP 36.2–37.2; O2SAT 84–900
--- NOTE | 2018-06-09 | NURSING ---
TF on hold at this time and due to high residual, and pt was given miralax due to no BM since admission.
[2018-06-09] MEDS: Propofol 10MG/Ml 1,000 MG/100 ML Bottle 8.232 MG CONT INF ×4 (02:33→17:40)
[2018-06-09] MEDS: CHLORHEXIDINE GLUC 2% CLOTH 1 EACH TOWELETTE TOPICAL (03:55)
--- NOTE | 2018-06-09 04:09 | NURSING ---
TF restarted at this time. Still no BM.
[2018-06-09 04:36] LABS: Absolute Lymphocyte Count 0.47 X10^3/ul (0.83-4.51); Absolute Neutrophil Count 7.4 X10^3/uL (2.0-7.7); Hematocrit 22.4 % (37-47); Lymphocyte # 0.47 X10^3/ul (4.0); Lymphocyte % 5.6 % (19-41); Mean Corp Hgb Conc 31.3 g/gl (32-36); Mean Corpuscular Hgb 30.8 pg (27.0-32.0); Mean Corpuscular Volume 98.7 fL (81-99); Mean Platelet Vol. 9.5 fl (6.2-12.0); Monocyte# 0.49 X10^3/uL; Monocyte% 5.8 % (0-10); Neutrophil # 7.43 X10^3/uL (2.7-7.7); Neutrophil % 88.2 % (47-70); Platelet Count 276 K/mm3 (150-450); Red Blood Count 2.27 M/mm3 (4.2-5.4); White Blood Count 8.4 K/mm3 (4.4-11.0)
[2018-06-09 04:40] LABS: Differential Indicated SCAN CRITERIA MET; POSITIVE COUNT NO; POSITIVE DIFFERENTIAL YES; POSITIVE MORPHOLOGY NO
[2018-06-09 04:53] LABS: Anion Gap 10 (5-15); BUN 71 mg/dL (7-18); BUN/Creat Ratio 24.2 RATIO (10-20); Chloride 97 mmol/L (98-107); Creatinine, Serum 2.93 mg/dL (0.55-1.02); EST Glomerular Filtration Rate 17 mL/min (>60); Est Glom Filt Rate - Afr Amer 21 mL/min (>60); Estimated Creatinine Clearance 17.45 ml/min; Glucose 503 mg/dL (74-106); Sodium Level 136 mmol/L (136-145)
[2018-06-09] MEDS: fentaNYL drip 100 ML 5 MCG IV ×3 (05:19→19:56)
[2018-06-09 05:26] LABS: Bedside Glucose 463 mg/dL (70-110)
[2018-06-09] MEDS: Enoxaparin 30 MG/0.3 ML Syringe SC (06:25)
[2018-06-09] MEDS: Insulin Lispro 100 UNIT/ML INSULN.PEN 20 UNIT SC ×4 (06:41→10:34)
[2018-06-09] MEDS: Ipratropium/Albuterol Sulfate 3 ML AMPUL.NEB INHALATION ×4 (07:02→18:39)
--- NOTE | 2018-06-09 07:13 | PN_ITS ---
Subjective: Patient did okay overnight. Nursing is reporting some increased residuals overnight leading to held tube feeds. Patient still has not had a bowel movement. Patient also has had elevated blood sugars noted. Attempts to decrease PEEP have not been very successful, but patient was able to be weaned to 45% FiO2. No malignant rhythms were noted. No acute blood loss. Patient did have hemodialysis yesterday. Nursing continues to report significant oral and endotracheal secretions. General: No apparent distress, - - RASS -1. Morbidly obese. Good vent synchrony. HEENT: Atraumatic, PERRLA, EOMI, Normocephalic, - - No scleral icterus or injection noted. Oral: Moist Mucosa, No Gingival or Mucosal Lesions/ Ulcerations Neck: Supple, No Nodes, Trachea Midline, JVD, Right Lungs: No rhonchi, No wheeze, No rales, Diminished, - - Symmetric expansion. No dullness to percussion. Cardiovascular: Regular rate, Regular Rhythm, Normal S1, Normal S2, No murmurs, No rub noted, No Gallop Abdomen: Bowel Sounds Present, Soft, Non Tender, Distended - Slightly, Obese Extremities: No clubbing, No cyanosis, Edema Skin: - - No significant change compared to previous Musculoskeletal: No Tenderness to Palpation of Joints or Extremities Lymphatic: No Cervical, Supraclavicular, or Inguinal Adenopathy Neurological: Cranial nerves II-XII grossly intact, Neuro grossly intact Psych/Mental Status: Flat Affect Vital Signs Temp Pulse Resp BP Pulse Ox 36.6 C 64 16 116/52 L 98 06/09/18 04:00 06/09/18 06:00 06/09/18 06:00 06/09/18 06:00 06/09/18 06:00 Oxygen Flow Rate (L/min) 15 Oxygen Delivery Method Mechanical Ventilator Weight: 132.8 kg Body Mass Index (BMI) 51.5 Finger Stick Blood Glucose 70 Intake and Output for Last 24 Hours 06/07/18 06/08/18 06/09/18 23:59 23:59 23:59 Intake Total 1238.1 / 1238.1 3588.9 / 3588.9 419.6 / 419.6 Output Total 195 / 195 2500 / 2500 400 / 400 Balance 1043.1 / 1043.1 1088.9 / 1088.9 19.6 / 19.6 Labs (Last 48 Hours) 06/07/18 06/07/18 06/07/18 10:30 13:00 13:12 WBC RBC Hgb Hct MCV MCH MCHC RDW RDW Differential Plt Count MPV Immature Gran % (Auto) Neut % (Auto) Lymph % (Auto) [place] % (Auto) Eos % (Auto) Baso % (Auto) Absolute Neuts (auto) Absolute Lymphs (auto) Total Counted Differential Comment PT 18.5 H INR 1.6 APTT 35.1 Sodium 134 L Potassium 5.8 H Chloride 104 Carbon Dioxide 22.0 Anion Gap 8 BUN 91 H Creatinine 4.50 H Estim Creat Clear Calc 11.36 Est GFR (MDRD) Af Amer 13 L Est GFR (MDRD) Non-Af 11 L BUN/Creatinine Ratio 20.2 H Glucose 272 H Calcium 8.1 L Phosphorus 7.9 H Magnesium 2.5 Iron TIBC Iron Saturation Hep Bs Antigen Hep Bs Antibody Hep B Core Total Ab POC Glucose 243 H 06/07/18 06/08/18 06/08/18 18:09 00:02 03:45 WBC RBC Hgb Hct MCV MCH MCHC RDW RDW Differential Plt Count MPV Immature Gran % (Auto) Neut % (Auto) Lymph % (Auto) [place] % (Auto) Eos % (Auto) Baso % (Auto) Absolute Neuts (auto) Absolute Lymphs (auto) Total Counted Differential Comment PT INR APTT Sodium Potassium Chloride Carbon Dioxide Anion Gap BUN Creatinine Estim Creat Clear Calc Est GFR (MDRD) Af Amer Est GFR (MDRD) Non-Af BUN/Creatinine Ratio Glucose Calcium Phosphorus Magnesium Iron TIBC Iron Saturation Hep Bs Antigen Pending Hep Bs Antibody Pending Hep B Core Total Ab Pending POC Glucose 183 H 224 H 06/08/18 06/08/18 06/08/18 03:45 03:45 03:45 WBC 14.5 H RBC 2.49 L Hgb 7.9 L Hct 24.5 L MCV 98.4 MCH 31.7 MCHC 32.2 RDW 15.1 H RDW Differential 54.3 H Plt Count 291 MPV 9.5 Immature Gran % (Auto) 0.100 Neut % (Auto) 91.3 H Lymph % (Auto) 5.2 L [place] % (Auto) 3.4 Eos % (Auto) 0.0 Baso % (Auto) 0.0 Absolute Neuts (auto) 13.2 H Absolute Lymphs (auto) 0.75 L Total Counted Not Reportable Differential Comment PT INR APTT Sodium 139 Potassium 4.4 Chloride 100 Carbon Dioxide 25.0 Anion Gap 14 BUN 74 H Creatinine 3.65 H Estim Creat Clear Calc 14.01 Est GFR (MDRD) Af Amer 16 L Est GFR (MDRD) Non-Af 13 L BUN/Creatinine Ratio 20.3 H Glucose 272 H Calcium 8.0 L Phosphorus 7.4 H Magnesium 2.4 Iron 102 TIBC 227 L Iron Saturation 44.9 Hep Bs Antigen Hep Bs Antibody Hep B Core Total Ab POC Glucose 06/08/18 06/08/18 06/08/18 05:49 11:48 17:48 WBC RBC Hgb Hct MCV MCH MCHC RDW RDW Differential Plt Count MPV Immature Gran % (Auto) Neut % (Auto) Lymph % (Auto) [place] % (Auto) Eos % (Auto) Baso % (Auto) Absolute Neuts (auto) Absolute Lymphs (auto) Total Counted Differential Comment PT INR APTT Sodium Potassium Chloride Carbon Dioxide Anion Gap BUN Creatinine Estim Creat Clear Calc Est GFR (MDRD) Af Amer Est GFR (MDRD) Non-Af BUN/Creatinine Ratio Glucose Calcium Phosphorus Magnesium Iron TIBC Iron Saturation Hep Bs Antigen Hep Bs Antibody Hep B Core Total Ab POC Glucose 301 H 218 H 319 H 06/08/18 06/09/18 06/09/18 23:04 03:55 03:55 WBC 8.4 RBC 2.27 L Hgb 7.0 L Hct 22.4 L MCV 98.7 MCH 30.8 MCHC 31.3 L RDW 15.0 H RDW Differential 54.0 H Plt Count 276 MPV 9.5 Immature Gran % (Auto) 0.400 Neut % (Auto) 88.2 H Lymph % (Auto) 5.6 L [place] % (Auto) 5.8 Eos % (Auto) 0.0 Baso % (Auto) 0.0 Absolute Neuts (auto) 7.4 Absolute Lymphs (auto) 0.47 L Total Counted Not Reportable Differential Comment PT INR APTT Sodium 136 Potassium 5.0 Chloride 97 L Carbon Dioxide 29.0 Anion Gap 10 BUN 71 H Creatinine 2.93 H Estim Creat Clear Calc 17.45 Est GFR (MDRD) Af Amer 21 L Est GFR (MDRD) Non-Af 17 L BUN/Creatinine Ratio 24.2 H Glucose 503 H* Calcium 8.0 L Phosphorus Magnesium Iron TIBC Iron Saturation Hep Bs Antigen Hep Bs Antibody Hep B Core Total Ab POC Glucose 430 H 06/09/18 05:11 WBC RBC Hgb Hct MCV MCH MCHC RDW RDW Differential Plt Count MPV Immature Gran % (Auto) Neut % (Auto) Lymph % (Auto) [place] % (Auto) Eos % (Auto) Baso % (Auto) Absolute Neuts (auto) Absolute Lymphs (auto) Total Counted Differential Comment PT INR APTT Sodium Potassium Chloride Carbon Dioxide Anion Gap BUN Creatinine Estim Creat Clear Calc Est GFR (MDRD) Af Amer Est GFR (MDRD) Non-Af BUN/Creatinine Ratio Glucose Calcium Phosphorus Magnesium Iron TIBC Iron Saturation Hep Bs Antigen Hep Bs Antibody Hep B Core Total Ab POC Glucose 463 H* Microbiology 06/08/18 07:24 Sputum, Tracheal Aspirate Gram Stain - Final 06/06/18 14:40 Sputum, Induced/Lukens Gram Stain - Final 06/06/18 14:40 Sputum, Induced/Lukens Respiratory Culture - Preliminary Appears to be normal respiratory carlos. Further studies to follow. Medical Necessity - Tobacco Use Smoking Status: Former smoker Tobacco Use: Cigarettes Assessment/Plan All Active Problems Severe sepsis (Acute) Hyperkalemia (Acute) Metabolic acidosis (Acute) Tobacco use disorder (Resolved) Cocaine dependence, episodic (Resolved) RECOMMENDATIONS: 1. Continue to wean PEEP as tolerated 2. Hemodialysis per nephrology 3. Await repeat sputum culture 4. Continue antibiotics, steroids and mucolytic 5. Continue tube feeds 6. Regular insulin this morning with increased basal insulin ordered IMPRESSIONS: 1. Acute on chronic combined respiratory failure with possible ARDS Unclear etiology at this time. Patient has not responded to diuretic therapy. Patient does have moderate pulmonary hypertension, pulmonary fibrosis and diastolic congestive heart failure. Patient's OFEV has been on hold. It is unlikely this is going to make an acute difference. Patient's oxygenation continues to improve. Initial sputum culture did not show pathologic organisms, but sputum production has significantly worsened following hemodialysis. Will send for culture. Continue with same empiric antibiotics for now. 2. Acute on chronic diastolic congestive heart failure versus cor pulmonale/junctional rhythm Patient has been receiving diuretic therapy secondary to a mildly elevated BNP. Given apical predominance, there is lower clinical suspicion for a predominant congestive heart failure component. We will continue to monitor. Troponins have been negative. Patient's junctional bradycardia appears to be significantly improved following hemodialysis indicating probable hypokalemia as the cause. Cardiology is following the patient. No active interventions planned at this time. 3. Diabetes mellitus type 2 Patient will be initiated on tube feeds. Blood sugars are significantly elevated at this time. Patient will be given a bolus of insulin with more frequent blood sugars this morning. Increased basal insulin. 4. Oliguric acute renal failure Improving. Patient with significant acidosis and hyperkalemia with decreasing urine output. Patient did receive hemodialysis yesterday. Patient tolerated this well. Defer to nephrology if patient is to be dialyzed today. Urine output appears to be somewhat improved 5. Morbid obesity/CKD stage III/hy pertension/hyperlipidemia/depression/GERD/history of smoking Complicates care, management, recovery and prognosis. Okay to continue with baseline medications for now. TIME: 35 minutes of critical care time spent addressing patient's acute on chronic respiratory failure, congestive heart failure, ARDS, clarification of CODE STATUS, review of all data and collaboration with care team (6 AM to 7:10 AM) Code Visit 9xxxx: [id number] Critical care first hour
[2018-06-09 08:01] LABS: Bedside Glucose 468 mg/dL (70-110)
[2018-06-09] MEDS: prednisoLONE eye drops (5 mL) 1 DROP OPTH.BTL 2 DRP LEFT EYE (09:02)
[2018-06-09] MEDS: Senna Tablet 2 TABLET GT (09:03)
[2018-06-09] MEDS: Chlorhexidine 15 ML PO ×2 (09:03→21:56)
[2018-06-09] MEDS: Citalopram 40 MG TABLET GT (09:04)
[2018-06-09] MEDS: Famotidine 20 MG Tablet GT (09:04)
[2018-06-09] MEDS: Gabapentin 300 MG Capsule GT ×2 (09:04→21:49)
[2018-06-09] MEDS: Glycerin/Hypromellose/PEG400 15 ml Bottle 1 DRP RIGHT EYE ×2 (09:05→21:46)
[2018-06-09 09:21] LABS: Bedside Glucose 429 mg/dL (70-110)
[2018-06-09 10:11] LABS: Bedside Glucose 419 mg/dL (70-110)
--- NOTE | 2018-06-09 10:22 | PCM.PROGNOTE ---
Patient Problems: Active and Suspected Problems Severe sepsis (Acute) Hyperkalemia (Acute) Metabolic acidosis (Acute) Subjective: Patient seen and examined today, she remains on the vent and lightly sedated. I talked with her significant other who was in the room this morning. Patient's creatinine is improved today, hemoglobin was 7 on today's lab. Patient's oxygen and PEEP requirements are trending downward. - Physical Exam General: Oriented x3, Cooperative, - - Patient responds to verbal and tactile stimuli, she remains lightly sedated HEENT: Atraumatic, PERRLA, EOMI, Normocephalic Oral: Moist Mucosa Neck: Supple, Trachea Midline, Thyroid Normal Size and Texture Lungs: Clear to auscultation, Normal air movement, No rhonchi, No wheeze, No rales Cardiovascular: Regular rate, Regular Rhythm, Normal S1, Normal S2, No murmurs, No Ectopic Activity Abdomen: Bowel Sounds Present, Soft, Non Tender, Non-Distended, Obese Extremities: No clubbing, No cyanosis, No edema, Capillary Refill Less than 3 Seconds Skin: No rashes, No breakdown Neurological: Cranial nerves II-XII grossly intact, Neuro grossly intact Psych/Mental Status: - - Patient is lightly sedated, she responds appropriately to verbal cues and tactile stimuli Vital Signs Temp Pulse Resp BP Pulse Ox 97.1 F L 78 14 124/62 H 94 06/09/18 08:00 06/09/18 10:00 06/09/18 10:00 06/09/18 10:00 06/09/18 10:00 Oxygen Flow Rate (L/min) 15 Oxygen Delivery Method Mechanical Ventilator Weight: 132.8 kg Body Mass Index (BMI) 51.5 Finger Stick Blood Glucose 70 Intake and Output for Last 24 Hours 06/07/18 06/08/18 06/09/18 23:59 23:59 23:59 Intake Total 1238.1 / 1238.1 3588.9 / 3588.9 519.6 / 519.6 Output Total 195 / 195 2500 / 2500 400 / 400 Balance 1043.1 / 1043.1 1088.9 / 1088.9 119.6 / 119.6 Microbiology Past 72 Hours 06/06/18 14:40 Gram Stain - Final Sputum, Induced/Lukens Respiratory Culture - Preliminary Alpha Hemolytic Streptococcus 06/08/18 07:24 Gram Stain - Final Sputum, Tracheal Aspirate 06/04/18 15:15 Blood Culture - Preliminary Blood Culture (Wb) - Right Hand No growth in 48 hours. 06/04/18 12:03 Blood Culture - Preliminary Blood Culture (Wb) - Anticubital Left No growth in 48 hours. Laboratory Tests Past 24 Hrs 06/08/18 06/09/18 06/09/18 03:45 03:55 03:55 WBC 8.4 RBC 2.27 L Hgb 7.0 L Hct 22.4 L MCV 98.7 MCH 30.8 MCHC 31.3 L RDW 15.0 H RDW Differential 54.0 H Plt Count 276 MPV 9.5 Immature Gran % (Auto) 0.400 Neut % (Auto) 88.2 H Lymph % (Auto) 5.6 L [place] % (Auto) 5.8 Eos % (Auto) 0.0 Baso % (Auto) 0.0 Absolute Neuts (auto) 7.4 Absolute Lymphs (auto) 0.47 L Total Counted Not Reportable Differential Comment Sodium 136 Potassium 5.0 Chloride 97 L Carbon Dioxide 29.0 Anion Gap 10 BUN 71 H Creatinine 2.93 H Estim Creat Clear Calc 17.45 Est GFR (MDRD) Af Amer 21 L Est GFR (MDRD) Non-Af 17 L BUN/Creatinine Ratio 24.2 H Glucose 503 H* Calcium 8.0 L Iron 102 TIBC 227 L Iron Saturation 44.9 POC Glucose 06/09/18 06/09/18 06/09/18 10:06 08:59 07:51 POC Glucose 419 H 429 H 468 H* 06/09/18 06/08/18 06/08/18 05:11 23:04 17:48 POC Glucose 463 H* 430 H 319 H 06/08/18 11:48 POC Glucose 218 H Medical Necessity - Tobacco Use Smoking Status: Former smoker Tobacco Use: Cigarettes Assessment/Plan All Active Problems Severe sepsis (Acute) Hyperkalemia (Acute) Metabolic acidosis (Acute) Tobacco use disorder (Resolved) Cocaine dependence, episodic (Resolved) #1 acute on chronic combined respiratory failure-secondary to ARDS-continue present treatment at this time, patient remains on the ventilator at this time, critical care is managing her care in the ICU, her oxygen requirement has lessened today, patient continues to improve #2 acute on chronic diastolic congestive heart failure #3 pulmonary hypertension #4 type 2 diabetes and blood sugars been elevated, insulin has been ordered for the patient #5 Acute kidney injury on chronic kidney disease stage III secondary to type 2 diabetes-nephrology is seeing the patient, she will continue to undergo dialysis as directed by nephrology #6 hypertension #7 possible bilateral pneumonia-patient will continue on antibiotic treatment for now #8 hyperkalemia-resolved #9 chronic anemia-etiology unclear, hemoglobin appears to be slowly trending downward Code Visit Inpatient E&M: 98138 Subs Hosp L2
[2018-06-09] MEDS: Bisacodyl 10 MG Suppository RECTAL (10:27)
[2018-06-09 11:21] LABS: Bedside Glucose 381 mg/dL (70-110)
[2018-06-09] MEDS: Insulin Lispro 100 UNIT/ML INSULN.PEN SQ ×3 (13:34→21:45)
[2018-06-09 13:46] LABS: Bedside Glucose 259 mg/dL (70-110)
[2018-06-09] MEDS: Vital AF 1.2 Cal Liquid 1,000 ML 60 ML GT (16:34)
--- NOTE | 2018-06-09 16:40 | NURSING ---
RT called to pt's room to assess pt/vent. PEAK pressure on vent noted to jump to 38 without pt coughing or bearing down and pulse ox dropped to 84%. Pt given 100%FiO2 and ETT sxn performed w/out results. Pt awake, denies SOB or CP. Pt's p.ox recovers on 100%
[2018-06-09 17:40] LABS: Bedside Glucose 309 mg/dL (70-110)
--- NOTE | 2018-06-09 18:07 | NURSING ---
REVIEWED RHODA HODGES RN CHARTING AND AGREE WITH ASSESSMENT FINDINGS
[2018-06-09 20:06] LABS: HEPATITIS B SURFACE AG Negative (Negative)
[2018-06-09] MEDS: Cyclopentolate 1% 2 ML Bottle 1 DRP LEFT EYE (21:46)
[2018-06-09] MEDS: Atorvastatin Calcium 40 MG Tablet GT (21:50)
[2018-06-09 21:56] LABS: Bedside Glucose 383 mg/dL (70-110)
[2018-06-09] MEDS: 0.9% NaCl Peripheral Flush Adult/Peds IV (21:57)
[2018-06-10] VITALS (35 sets, daily range): BP systolic 80–135; BP diastolic 46–69; PULSE 57–79; RESP 14–20; TEMP 36.1–37.2; O2SAT 85–99
[2018-06-10 00:26] LABS: Bedside Glucose 371 mg/dL (70-110)
[2018-06-10] MEDS: Propofol 10MG/Ml 1,000 MG/100 ML Bottle 8.232 MG CONT INF ×5 (00:26→20:55)
[2018-06-10] MEDS: Insulin Lispro 100 UNIT/ML INSULN.PEN SQ ×6 (02:17→22:45)
[2018-06-10 02:25] LABS: Bedside Glucose 347 mg/dL (70-110)
[2018-06-10] MEDS: CHLORHEXIDINE GLUC 2% CLOTH 1 EACH TOWELETTE TOPICAL (02:58)
[2018-06-10] MEDS: fentaNYL drip 100 ML 5 MCG IV ×4 (03:25→23:23)
[2018-06-10] MEDS: 0.9% NaCl Peripheral Flush Adult/Peds IV ×2 (04:29→09:10)
[2018-06-10 04:42] LABS: Anion Gap 9 (5-15); BUN 90 mg/dL (7-18); BUN/Creat Ratio 32.3 RATIO (10-20); Calcium,Total 8.4 mg/dL (8.5-10.1); Chloride 101 mmol/L (98-107); Creatinine, Serum 2.79 mg/dL (0.55-1.02); EST Glomerular Filtration Rate 18 mL/min (>60); Est Glom Filt Rate - Afr Amer 22 mL/min (>60); Estimated Creatinine Clearance 18.33 ml/min; Glucose 391 mg/dL (74-106); Potassium 5.2 mmol/L (3.5-5.1); Sodium Level 139 mmol/L (136-145)
[2018-06-10 04:52] LABS: Absolute Lymphocyte Count 0.52 X10^3/ul (0.83-4.51); Absolute Neutrophil Count 9.4 X10^3/uL (2.0-7.7); Basophil# 0.01 X10^3/uL; Basophil% 0.1 % (0-1); Differential Indicated SCAN CRITERIA MET; Hematocrit 23.5 % (37-47); Hemoglobin 7.4 g/dl (12.0-15.0); Lymphocyte # 0.52 X10^3/ul (4.0); Lymphocyte % 4.9 % (19-41); Mean Corp Hgb Conc 31.5 g/gl (32-36); Mean Corpuscular Hgb 31.1 pg (27.0-32.0); Mean Corpuscular Volume 98.7 fL (81-99); Mean Platelet Vol. 9.4 fl (6.2-12.0); Monocyte# 0.69 X10^3/uL; Monocyte% 6.5 % (0-10); Neutrophil # 9.36 X10^3/uL (2.7-7.7); Neutrophil % 87.9 % (47-70); POSITIVE COUNT NO; POSITIVE DIFFERENTIAL YES; POSITIVE MORPHOLOGY NO; Platelet Count 250 K/mm3 (150-450); RBC Distribution Width CV 14.7 % (11.6-14.6); RBC Distribution Width SD 51.6 fl (35.1-43.9); Red Blood Count 2.38 M/mm3 (4.2-5.4); White Blood Count 10.6 K/mm3 (4.4-11.0)
[2018-06-10 05:31] LABS: Differential Comment SCANNED; Hypochromasia 2+; Microcytosis 2+
[2018-06-10] MEDS: Enoxaparin 30 MG/0.3 ML Syringe SC (06:02)
[2018-06-10 06:11] LABS: Bedside Glucose 414 mg/dL (70-110)
--- NOTE | 2018-06-10 06:24 | PCM.PN.HOSP ---
Patient Problems: Active and Suspected Problems Severe sepsis (Acute) Hyperkalemia (Acute) Metabolic acidosis (Acute) Subjective: Patient with no acute events overnight per self and per nursing report. Patient is intubated and sedated however she has been improving and is more alert, answering questions with head nods, able to follow commands. Patient respiratory status with vent needs has been slowly improving following dialysis as well as recent steroid administration. 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 Hemoglobin continues to trend downward, guaiac positive, pending iron studies. Patient denies fevers, chills, nausea, emesis, abdominal pain, chest pain. Objective: Physical Examination: General: awake, alert, oriented x 3 to head nodding, following all commands, cooperative, seated upright in the ICU bed in no apparent distress, intubated. Skin: normal color, turgor, no icterus, cyanosis. HEENT: AT/NC, EOM intact, L eye chronic blindness, distortion s/p retinal detachment, R pupil appropriate RRLA, mildly dry MM. Lungs: Diminished breath sounds, greater bases, intubated, symmetric rise, no rales, ronchi or wheezing. Heart: Regular rate and rhythm; no gallop, rub audible. Abdomen: soft, morbidly obese, NTTP, ND, normal BS. Extremities: no cyanosis, clubbing, or edema. Neurological: patient awake, alert, oriented as noted; cognitive function improved, nearing baseline intact, intubated still, mild sedation; pupils equally reactive to light and accomodation; cranial nerves II-XII grossly normal, moving all 4 extremities, strength severely globally decreased secondary to acute presentation, sedated, intubated. Psychiatric: affect appears fatigued, no acute evidence of depressive or anxiety feelings. Vitals/I&O's: Vital Signs Temp Pulse Resp BP Pulse Ox 97.7 F L 62 16 128/54 H 93 06/10/18 04:00 06/10/18 05:08 06/10/18 05:08 06/10/18 05:00 06/10/18 05:08 Oxygen Flow Rate (L/min) 15 Oxygen Delivery Method Mechanical Ventilator Weight: 292 lb 5.327 oz Body Mass Index (BMI) 51.5 Finger Stick Blood Glucose 383 Intake and Output for Last 24 Hours 06/08/18 06/09/18 06/10/18 23:59 23:59 23:59 Intake Total 3588.9 / 3588.9 3262.0 / 3262.0 100 / 100 Output Total 2500 / 2500 1750 / 1750 Balance 1088.9 / 1088.9 1512.0 / 1512.0 100 / 100 Microbiology Past 72 Hours 06/08/18 07:24 Sputum, Tracheal Aspirate Gram Stain - Final 06/08/18 07:24 Sputum, Tracheal Aspirate Respiratory Culture - Preliminary Coag Negative Staph 06/06/18 14:40 Sputum, Induced/Lukens Gram Stain - Final 06/06/18 14:40 Sputum, Induced/Lukens Respiratory Culture - Preliminary Alpha Hemolytic Streptococcus Laboratory Results 06/09/18 07:51: POC Glucose 468 H* 06/09/18 08:59: POC Glucose 429 H 06/09/18 10:06: POC Glucose 419 H 06/09/18 11:13: POC Glucose 381 H 06/09/18 13:32: POC Glucose 259 H 06/09/18 17:27: POC Glucose 309 H 06/09/18 21:43: POC Glucose 383 H 06/09/18 23:55: POC Glucose 371 H 06/10/18 02:16: POC Glucose 347 H 06/10/18 04:20: WBC 10.6, RBC 2.38 L, Hgb 7.4 L, Hct 23.5 L, MCV 98.7, MCH 31.1, MCHC 31.5 L, RDW 14.7 H, RDW Differential 51.6 H, Plt Count 250, MPV 9.4, Immature Gran % (Auto) 0.600, Neut % (Auto) 87.9 H, Lymph % (Auto) 4.9 L, [place] % (Auto) 6.5, Eos % (Auto) 0.0, Baso % (Auto) 0.1, Absolute Neuts (auto) 9.4 H, Absolute Lymphs (auto) 0.52 L, Total Counted Not Reportable, Differential Comment SCANNED, Hypochromasia 2+, Microcytosis 2+ 06/10/18 04:20: Sodium 139, Potassium 5.2 H, Chloride 101, Carbon Dioxide 29.0, Anion Gap 9, BUN 90 H, Creatinine 2.79 H, Estim Creat Clear Calc 18.33, Est GFR (MDRD) Af Amer 22 L, Est GFR (MDRD) Non-Af 18 L, BUN/Creatinine Ratio 32.3 H, Glucose 391 H, Calcium 8.4 L 06/10/18 06:00: POC Glucose 414 H Current Medications Acetaminophen (Tylenol Liquid) 650 mg GT Q6H PRN PRN PRN Reason: fever over 100.4 or pain Albuterol Sulfate (Ventolin Aerosols) 2.5 mg INHALATION Q2H PRN PRN PRN Reason: SHORTNESS OF BREATH Last Admin: 06/06/18 05:07 Dose: 2.5 mg Albuterol/Ipratropium (Duoneb) 3 ml INHALATION Q4HWA.RT [facility] Last Admin: 06/09/18 18:39 Dose: 3 ml Atorvastatin Calcium (Lipitor) 40 mg GT QHS [facility] Last Admin: 06/09/18 21:50 Dose: 40 mg Atropine Sulfate () 0.5 mg IV X1 PRN PRN Reason: HR < 35 sustained, MAP < 60 Chlorhexidine Gluconate () 15 ml PO BID [facility] Last Admin: 06/09/18 21:56 Dose: 15 ml Chlorhexidine Gluconate () 1 each TOPICAL DAILY [facility] Last Admin: 06/10/18 02:58 Dose: 1 each Citalopram Hydrobromide (Celexa) 40 mg GT DAILY [facility] Last Admin: 06/09/18 09:04 Dose: 40 mg Cyclopentolate HCl (Cyclogyl) 1 drop LEFT EYE QHS [facility] Last Admin: 06/09/18 21:46 Dose: 1 drop Dextrose (D50w Syringe) 0 gm IV X1 PRN; Protocol PRN Reason: Hypoglycemia Enoxaparin Sodium (Lovenox) 30 mg SC DAILY@0600 [facility] Last Admin: 06/10/18 06:02 Dose: 30 mg Famotidine (Pepcid) 20 mg GT DAILY [facility] Last Admin: 06/09/18 09:04 Dose: 20 mg Gabapentin (Neurontin) 300 mg GT BID [facility] Last Admin: 06/09/18 21:49 Dose: 300 mg Glucagon () 1 mg IM .X1 PRN PRN Reason: Hypoglycemia Heparin Sodium (Porcine) () 2,500 units IV UD PRN PRN Reason: HEPARIN FLUSH Last Admin: 06/07/18 12:00 Dose: 2,500 units Ceftriaxone Sodium 2 gm/ (Sodium Chloride) 50 mls @ 100 mls/hr IV Q24 [facility] Last Admin: 06/09/18 09:18 Dose: 100 mls/hr Fentanyl () 100 mls @ 5 mls/hr IV .Q20H [facility] Last Admin: 06/10/18 03:25 Dose: 5 mls/hr Propofol (Diprivan) 1,000 mg in 100 mls @ 8.232 mls/hr CONT INF .Q12H [facility] Last Admin: 06/10/18 04:27 Dose: 8.232 mls/hr Enteral Nutritional Formula (Vital Af 1.2 Fransico Liquid) 1,000 mls @ 60 mls/hr GT .[id number] [facility] Last Admin: 06/09/18 16:34 Dose: 60 mls/hr Norepinephrine Bitartrate 8 mg (/ Dextrose) 258 mls @ 9.68 mls/hr IV .[id number] [facility] Last Admin: 06/09/18 19:58 Dose: Not Given Insulin Glargine (Lantus (Bkc)) 20 units SC BID [facility] Last Admin: 06/09/18 21:48 Dose: 20 u Insulin Human Lispro (Humalog Kwikpen (Bkc)) 0 unit SQ Q4 [facility]; Protocol Last Admin: 06/10/18 06:01 Dose: 16 u Methylprednisolone (Solu-Medrol) 40 mg IV Q8 [facility] Last Admin: 06/10/18 06:02 Dose: 40 mg Ondansetron HCl (Zofran) 4 mg IV Q6H PRN PRN PRN Reason: NAUSEA/VOMITING Last Admin: 06/05/18 00:30 Dose: 4 mg Polyethylene Glycol (Miralax) 17 gm GT DAILY PRN PRN Reason: Constipation Last Admin: 06/08/18 23:53 Dose: 17 gm Prednisolone Acetate (Pred Forte Eye Drops (5 Ml)) 2 drop LEFT EYE DAILY [facility] Last Admin: 06/09/18 09:02 Dose: 2 drop Senna (Senokot) 2 tablet GT DAILY [facility] Last Admin: 06/09/18 09:03 Dose: 2 tablet Sodium Chloride () 5 - 15 ml IV UD PRN PRN Reason: SALINE FLUSH Last Admin: 06/10/18 04:29 Dose: 10 ml Sodium Chloride () 10 ml IV UD PRN PRN Reason: Dialysis Catheter Flush Sodium Chloride () 10 - 40 ml IV UD PRN PRN Reason: MULTILUMEN/HICMAN CATH FLUSH Last Admin: 06/09/18 03:55 Dose: 20 ml Medical Necessity - Tobacco Use Smoking Status: Former smoker Tobacco Use: Cigarettes Assessment/Plan All Active Problems Severe sepsis (Acute) Hyperkalemia (Acute) Metabolic acidosis (Acute) Tobacco use disorder (Resolved) Cocaine dependence, episodic (Resolved) The patient is a 63 y/o F w/ PMHx: PATRICK, Chronic Hypoxic Respiratory Failure, Pulmonary Fibrosis, Diabetes mellitus type II, CKD stage IV, Morbid Obesity, Tobacco use, Depression and Anxiety, History Cocaine Abuse, HTN, HLD who presents to the [facility] ED on 06/04/18 with history of worsening dyspnea x 2 weeks with intermittent productive cough, no fevers or chills but recent URI. (1) Acute Sepsis secondary to Acute on Chronic Hypoxic Respiratory Failure, Multifactorial, Possible ARDS, ? BL Pneumonia, ? Acute on Chronic COPD Exacerbation complicated by Pulmonary HTN: Intubated, sedated, MARIAN as noted concurrent, Acute CHF exacerbation concurrently, CXR w/ ? BL PNA also, continue ATC duonebs, PRN albuterol, maintained on IV solumedrol-->prednisone, maintained on IV Rocephin and completed Azithromycin, Coag neg staph and alpha hemolytic strep sputum cultures, negative respiratory panel, negative urine antigens. Bld cx x 2 obtained in the ED with NGTD. Continued HD per Nephrology direction. (2) Acute on Chronic Diastolic CHF Exacerbation with ? Cor Pulmonale w/ Junctional Rhythm: Cardiology consulted, junctional bradycardia felt likely secondary to hyperkalemia, following HD normalized to SR, recommendation to avoid K > 4.5, discontinuation of patient losartan, unresponsive to diuretic therapy, HD started on 06/07/18, maintained on statin, not on ASA nor BB, secondary to worsening anemia and low normal BPs. Add as able. (3) Acute Oliguric Renal Failure on CKD stage IV: Suspected secondary to acute sepsis induced ATN. Admission BUN/Cr 34/2.11, last noted 02/05/15 Cr 2.05, 06/10/18 BUN/Cr 90/2.79, HD initiated 06/07/18, R IJ access in place, 06/07/18 removal 1.7L. Nephrology following. From current evaluation would benefit from repeat HD today. (4) Hyperkalemia: Following admission K 5.8, improved following interventions, associated w/ MARIAN, 06/10/18 K 5.2, continue to trend. (5) Chronic Anemia, Unclear Etiology: Hgb 7.4, admission Hgb 9.8, trending down since admission, acute on chronic renal presentation, will obtain Fe panel, ferritin, vitamin B12, folic acid, + stool guiac, continue to trend HH. Transitioned to PPI. May need to consider endoscopy evaluation. (6) Diabetes mellitus type II, Uncontrolled: Intermittent hyperglycemia during admission with alteration of basal insulin, maintained currently on tube feeds, hemoglobin A1c pending, accu checks w/ ISS q 6 hours while TF status. (7) Morbid Obesity: Weight loss and lifestyle changes will be encouraged, nutrition consulted. (8) Anxiety and Depression: Maintained on home citalopram regimen. (9) History of Tobacco use: Encourage continued cessation. (10) Hypertension: BP low normal, held. (11) Hyperlipidemia: Continued on home statin. (12) GERD: Renally dosed famotidine-->transition to PPI. (13) PATRICK: Currently intubated, sedated. (14) DVT Prophylaxis: SCDs, renally dosed lovenox. Code Visit Inpatient E&M: 75412 [facility] L[facility]
[2018-06-10] MEDS: Ipratropium/Albuterol Sulfate 3 ML AMPUL.NEB INHALATION ×4 (06:38→17:40)
--- NOTE | 2018-06-10 06:41 | PN_ITS ---
Patient Problems: Active and Suspected Problems Severe sepsis (Acute) Hyperkalemia (Acute) Metabolic acidosis (Acute) Subjective: Patient with no acute events overnight per self and per nursing report. Patient is intubated and sedated however she has been improving and is more alert, answering questions with head nods, able to follow commands. Patient respiratory status with vent needs has been slowly improving following dialysis as well as recent steroid administration. Lily patient events with director of strategic communications and noted intention for transition from IV steroids to prednisone as well as transition from famotidine to PPI. Hemoglobin continues to trend downward, guaiac positive, pending iron studies. Patient denies fevers, chills, nausea, emesis, abdominal pain, chest pain. Objective: Physical Examination: General: awake, alert, oriented x 3 to head nodding, following all commands, cooperative, seated upright in the ICU bed in no apparent distress, intubated. Skin: normal color, turgor, no icterus, cyanosis. HEENT: AT/NC, EOM intact, L eye chronic blindness, distortion s/p retinal detach ment, R pupil appropriate RRLA, mildly dry MM. Lungs: Diminished breath sounds, greater bases, intubated, symmetric rise, no rales, ronchi or wheezing. Heart: Regular rate and rhythm; no gallop, rub audible. Abdomen: soft, morbidly obese, NTTP, ND, normal BS. Extremities: no cyanosis, clubbing, or edema. Neurological: patient awake, alert, oriented as noted; cognitive function improved, nearing baseline intact, intubated still, mild sedation; pupils equally reactive to light and accomodation; cranial nerves II-XII grossly normal, moving all 4 extremities, strength severely globally decreased secondary to acute presentation, sedated, intubated. Psychiatric: affect appears fatigued, no acute evidence of depressive or anxiety feelings. Vitals/I&O's: Vital Signs Temp Pulse Resp BP Pulse Ox 97.7 F L 62 16 128/54 H 93 06/10/18 04:00 06/10/18 05:08 06/10/18 05:08 06/10/18 05:00 06/10/18 05:08 Oxygen Flow Rate (L/min) 15 Oxygen Delivery Method Mechanical Ventilator Weight: 292 lb 5.327 oz Body Mass Index (BMI) 51.5 Finger Stick Blood Glucose 383 Intake and Output for Last 24 Hours 06/08/18 06/09/18 06/10/18 23:59 23:59 23:59 Intake Total 3588.9 / 3588.9 3262.0 / 3262.0 100 / 100 Output Total 2500 / 2500 1750 / 1750 Balance 1088.9 / 1088.9 1512.0 / 1512.0 100 / 100 Microbiology Past 72 Hours 06/08/18 07:24 Sputum, Tracheal Aspirate Gram Stain - Final 06/08/18 07:24 Sputum, Tracheal Aspirate Respiratory Culture - Preliminary Coag Negative Staph 06/06/18 14:40 Sputum, Induced/Lukens Gram Stain - Final 06/06/18 14:40 Sputum, Induced/Lukens Respiratory Culture - Preliminary Alpha Hemolytic Streptococcus Laboratory Results 06/09/18 07:51: POC Glucose 468 H* 06/09/18 08:59: POC Glucose 429 H 06/09/18 10:06: POC Glucose 419 H 06/09/18 11:13: POC Glucose 381 H 06/09/18 13:32: POC Glucose 259 H 06/09/18 17:27: POC Glucose 309 H 06/09/18 21:43: POC Glucose 383 H 06/09/18 23:55: POC Glucose 371 H 06/10/18 02:16: POC Glucose 347 H 06/10/18 04:20: WBC 10.6, RBC 2.38 L, Hgb 7.4 L, Hct 23.5 L, MCV 98.7, MCH 31.1, MCHC 31.5 L, RDW 14.7 H, RDW Differential 51.6 H, Plt Count 250, MPV 9.4, Immature Gran % (Auto) 0.600, Neut % (Auto) 87.9 H, Lymph % (Auto) 4.9 L, [place] % (Auto) 6.5, Eos % (Auto) 0.0, Baso % (Auto) 0.1, Absolute Neuts (auto) 9.4 H, Absolute Lymphs (auto) 0.52 L, Total Counted Not Reportable, Differential Comment SCANNED, Hypochromasia 2+, Microcytosis 2+ 06/10/18 04:20: Sodium 139, Potassium 5.2 H, Chloride 101, Carbon Dioxide 29.0, Anion Gap 9, BUN 90 H, Creatinine 2.79 H, Estim Creat Clear Calc 18.33, Est GFR (MDRD) Af Amer 22 L, Est GFR (MDRD) Non-Af 18 L, BUN/Creatinine Ratio 32.3 H, Glucose 391 H, Calcium 8.4 L 06/10/18 06:00: POC Glucose 414 H Current Medications Acetaminophen (Tylenol Liquid) 650 mg GT Q6H PRN PRN PRN Reason: fever over 100.4 or pain Albuterol Sulfate (Ventolin Aerosols) 2.5 mg INHALATION Q2H PRN PRN PRN Reason: SHORTNESS OF BREATH Last Admin: 06/06/18 05:07 Dose: 2.5 mg Albuterol/Ipratropium (Duoneb) 3 ml INHALATION Q4HWA.RT [facility] Last Admin: 06/09/18 18:39 Dose: 3 ml Atorvastatin Calcium (Lipitor) 40 mg GT QHS [facility] Last Admin: 06/09/18 21:50 Dose: 40 mg Atropine Sulfate () 0.5 mg IV X1 PRN PRN Reason: HR < 35 sustained, MAP < 60 Chlorhexidine Gluconate () 15 ml PO BID [facility] Last Admin: 06/09/18 21:56 Dose: 15 ml Chlorhexidine Gluconate () 1 each TOPICAL DAILY [facility] Last Admin: 06/10/18 02:58 Dose: 1 each Citalopram Hydrobromide (Celexa) 40 mg GT DAILY [facility] Last Admin: 06/09/18 09:04 Dose: 40 mg Cyclopentolate HCl (Cyclogyl) 1 drop LEFT EYE QHS [facility] Last Admin: 06/09/18 21:46 Dose: 1 drop Dextrose (D50w Syringe) 0 gm IV X1 PRN; Protocol PRN Reason: Hypoglycemia Enoxaparin Sodium (Lovenox) 30 mg SC DAILY@0600 [facility] Last Admin: 06/10/18 06:02 Dose: 30 mg Famotidine (Pepcid) 20 mg GT DAILY [facility] Last Admin: 06/09/18 09:04 Dose: 20 mg Gabapentin (Neurontin) 300 mg GT BID [facility] Last Admin: 06/09/18 21:49 Dose: 300 mg Glucagon () 1 mg IM .X1 PRN PRN Reason: Hypoglycemia Heparin Sodium (Porcine) () 2,500 units IV UD PRN PRN Reason: HEPARIN FLUSH Last Admin: 06/07/18 12:00 Dose: 2,500 units Ceftriaxone Sodium 2 gm/ (Sodium Chloride) 50 mls @ 100 mls/hr IV Q24 [facility] Last Admin: 06/09/18 09:18 Dose: 100 mls/hr Fentanyl () 100 mls @ 5 mls/hr IV .Q20H [facility] Last Admin: 06/10/18 03:25 Dose: 5 mls/hr Propofol (Diprivan) 1,000 mg in 100 mls @ 8.232 mls/hr CONT INF .Q12H [facility] Last Admin: 06/10/18 04:27 Dose: 8.232 mls/hr Enteral Nutritional Formula (Vital Af 1.2 Fransico Liquid) 1,000 mls @ 60 mls/hr GT .[id number] [facility] Last Admin: 06/09/18 16:34 Dose: 60 mls/hr Norepinephrine Bitartrate 8 mg (/ Dextrose) 258 mls @ 9.68 mls/hr IV .[id number] [facility] Last Admin: 06/09/18 19:58 Dose: Not Given Insulin Glargine (Lantus (Bkc)) 20 units SC BID [facility] Last Admin: 06/09/18 21:48 Dose: 20 u Insulin Human Lispro (Humalog Kwikpen (Bkc)) 0 unit SQ Q4 [facility]; Protocol Last Admin: 06/10/18 06:01 Dose: 16 u Methylprednisolone (Solu-Medrol) 40 mg IV Q8 [facility] Last Admin: 06/10/18 06:02 Dose: 40 mg Ondansetron HCl (Zofran) 4 mg IV Q6H PRN PRN PRN Reason: NAUSEA/VOMITING Last Admin: 06/05/18 00:30 Dose: 4 mg Polyethylene Glycol (Miralax) 17 gm GT DAILY PRN PRN Reason: Constipation Last Admin: 06/08/18 23:53 Dose: 17 gm Prednisolone Acetate (Pred Forte Eye Drops (5 Ml)) 2 drop LEFT EYE DAILY [facility] Last Admin: 06/09/18 09:02 Dose: 2 drop Senna (Senokot) 2 tablet GT DAILY [facility] Last Admin: 06/09/18 09:03 Dose: 2 tablet Sodium Chloride () 5 - 15 ml IV UD PRN PRN Reason: SALINE FLUSH Last Admin: 06/10/18 04:29 Dose: 10 ml Sodium Chloride () 10 ml IV UD PRN PRN Reason: Dialysis Catheter Flush Sodium Chloride () 10 - 40 ml IV UD PRN PRN Reason: MULTILUMEN/HICMAN CATH FLUSH Last Admin: 06/09/18 03:55 Dose: 20 ml Medical Necessity - Tobacco Use Smoking Status: Former smoker Tobacco Use: Cigarettes Assessment/Plan All Active Problems Severe sepsis (Acute) Hyperkalemia (Acute) Metabolic acidosis (Acute) Tobacco use disorder (Resolved) Cocaine dependence, episodic (Resolved) The patient is a 63 y/o F w/ PMHx: PATRICK, Chronic Hypoxic Respiratory Failure, Pulmonary Fibrosis, Diabetes mellitus type II, CKD stage IV, Morbid Obesity, Tobacco use, Depression and Anxiety, History Cocaine Abuse, HTN, HLD who presents to the [facility] ED on 06/04/18 with history of worsening dyspnea x 2 weeks with intermittent productive cough, no fevers or chills but recent URI. (1) Acute Sepsis secondary to Acute on Chronic Hypoxic Respiratory Failure, Multifactorial, Possible ARDS, ? BL Pneumonia, ? Acute on Chronic COPD Exacerbation complicated by Pulmonary HTN: Intubated, sedated, MARIAN as noted concurrent, Acute CHF exacerbation concurrently, CXR w/ ? BL PNA also, continue ATC duonebs, PRN albuterol, maintained on IV solumedrol-->prednisone, maintained on IV Rocephin and completed Azithromycin, Coag neg staph and alpha hemolytic strep sputum cultures, negative respiratory panel, negative urine antigens. Bld cx x 2 obtained in the ED with NGTD. Continued HD per Nephrology direction. (2) Acute on Chronic Diastolic CHF Exacerbation with ? Cor Pulmonale w/ Junctional Rhythm: Cardiology consulted, junctional bradycardia felt likely secondary to hyperkalemia, following HD normalized to SR, recommendation to avoid K > 4.5, discontinuation of patient losartan, unresponsive to diuretic therapy, HD started on 06/07/18, maintained on statin, not on ASA nor BB, secondary to worsening anemia and low normal BPs. Add as able. (3) Acute Oliguric Renal Failure on CKD stage IV: Suspected secondary to acute sepsis induced ATN. Admission BUN/Cr 34/2.11, last noted 02/05/15 Cr 2.05, 06/10/18 BUN/Cr 90/2.79, HD initiated 06/07/18, R IJ access in place, 06/07/18 removal 1.7L. Nephrology following. From current evaluation would benefit from repeat HD today. (4) Hyperkalemia: Following admission K 5.8, improved following interventions, associated w/ MARIAN, 06/10/18 K 5.2, continue to trend. (5) Chronic Anemia, Unclear Etiology: Hgb 7.4, admission Hgb 9.8, trending down since admission, acute on chronic renal presentation, will obtain Fe panel, ferritin, vitamin B12, folic acid, + stool guiac, continue to trend HH. Transitioned to PPI. May need to consider endoscopy evaluation. (6) Diabetes mellitus type II, Uncontrolled: Intermittent hyperglycemia during admission with alteration of basal insulin, maintained currently on tube feeds, hemoglobin A1c pending, accu checks w/ ISS q 6 hours while TF status. (7) Morbid Obesity: Weight loss and lifestyle changes will be encouraged, nutrition consulted. (8) Anxiety and Depression: Maintained on home citalopram regimen. (9) History of Tobacco use: Encourage continued cessation. (10) Hypertension: BP low normal, held. (11) Hyperlipidemia: Continued on home statin. (12) GERD: Renally dosed famotidine-->transition to PPI. (13) PATRICK: Currently intubated, sedated. (14) DVT Prophylaxis: SCDs, renally dosed lovenox. Code Visit Inpatient E&M: [id number] [facility] L3
--- NOTE | 2018-06-10 06:45 | PCM.PN.INT ---
Subjective: The patient was seen and examined at the bedside this morning. Events from the last 24 hours have been reviewed. The patient is currently afebrile, hemodynamically stable and maintaining appropriate oxygen saturations on assist control with an FiO2 requirement of 45% and PEEP of 6. Nursing staff does report that the patient avidly desaturates with any movement in bed. Tube feeds were placed on hold for approximately 4 hours overnight due to high residuals. Despite being on scheduled Lantus and sliding scale insulin coverage, the patient's blood glucose levels remain elevated. There are tentative plans for for the patient to undergo hemodialysis today. The patient remains sedated on fentanyl and propofol. Objective: The patient's most recent lab work, culture data and imaging studies have all been personally reviewed. CTA chest dated June 06 revealed no evidence for pulmonary embolism, but did demonstrate bilateral pneumonia/ARDS. Surface echocardiogram revealed normal LV size and function with an ejection fraction of 65%. The RV was moderately dilated. Right ventricular systolic pressure was estimated to be 56 mmHg. Blood cultures have shown no growth to date. Respiratory viral panel was negative. Sputum culture was positive for alpha hemolytic Streptococcus and coag negative staph. General: - - Intubated, sedated and mechanically ventilated. Currently tolerating assist control mode of mechanical ventilation without dyssynchrony noted. HEENT: Atraumatic, PERRLA, Normocephalic Oral: No Gingival or Mucosal Lesions/ Ulcerations, - - Endotracheal and OG tube currently in place Neck: Supple, No Nodes, Trachea Midline, - - Right-sided temporary hemodialysis catheter, left-sided triple-lumen catheter Lungs: No rhonchi, No wheeze, No rales, Diminished Cardiovascular: Regular rate, Regular Rhythm, Normal S1, Normal S2, No murmurs Abdomen: Bowel Sounds Present, Soft, Non Tender, Obese Extremities: No clubbing, No cyanosis, Edema Skin: No breakdown Musculoskeletal: No Tenderness to Palpation of Joints or Extremities, No Muscle Wasting Lymphatic: No Cervical, Supraclavicular, or Inguinal Adenopathy Neurological: - - No focal neurological deficits. Currently sedated with a RASS of -1. Vital Signs Temp Pulse Resp BP Pulse Ox 36.5 C L 62 16 128/54 H 93 06/10/18 04:00 06/10/18 05:08 06/10/18 05:08 06/10/18 05:00 06/10/18 05:08 Oxygen Flow Rate (L/min) 15 Oxygen Delivery Method Mechanical Ventilator Weight: 292 lb 5.327 oz Body Mass Index (BMI) 51.5 Finger Stick Blood Glucose 383 Intake and Output for Last 24 Hours 06/08/18 06/09/18 06/10/18 23:59 23:59 23:59 Intake Total 3588.9 / 3588.9 3262.0 / 3262.0 100 / 100 Output Total 2500 / 2500 1750 / 1750 Balance 1088.9 / 1088.9 1512.0 / 1512.0 100 / 100 Labs (Last 48 Hours) 06/08/18 06/08/18 06/08/18 03:45 11:48 17:48 WBC RBC Hgb Hct MCV MCH MCHC RDW RDW Differential Plt Count MPV Immature Gran % (Auto) Neut % (Auto) Lymph % (Auto) [place] % (Auto) Eos % (Auto) Baso % (Auto) Absolute Neuts (auto) Absolute Lymphs (auto) Total Counted Differential Comment Hypochromasia Microcytosis Sodium Potassium Chloride Carbon Dioxide Anion Gap BUN Creatinine Estim Creat Clear Calc Est GFR (MDRD) Af Amer Est GFR (MDRD) Non-Af BUN/Creatinine Ratio Glucose Hemoglobin A1c Calcium Iron 102 TIBC 227 L Iron Saturation 44.9 Ferritin Vitamin B12 Folate POC Glucose 218 H 319 H 06/08/18 06/09/18 06/09/18 23:04 03:55 03:55 WBC 8.4 RBC 2.27 L Hgb 7.0 L Hct 22.4 L MCV 98.7 MCH 30.8 MCHC 31.3 L RDW 15.0 H RDW Differential 54.0 H Plt Count 276 MPV 9.5 Immature Gran % (Auto) 0.400 Neut % (Auto) 88.2 H Lymph % (Auto) 5.6 L [place] % (Auto) 5.8 Eos % (Auto) 0.0 Baso % (Auto) 0.0 Absolute Neuts (auto) 7.4 Absolute Lymphs (auto) 0.47 L Total Counted Not Reportable Differential Comment Hypochromasia Microcytosis Sodium 136 Potassium 5.0 Chloride 97 L Carbon Dioxide 29.0 Anion Gap 10 BUN 71 H Creatinine 2.93 H Estim Creat Clear Calc 17.45 Est GFR (MDRD) Af Amer 21 L Est GFR (MDRD) Non-Af 17 L BUN/Creatinine Ratio 24.2 H Glucose 503 H* Hemoglobin A1c Calcium 8.0 L Iron TIBC Iron Saturation Ferritin Vitamin B12 Folate POC Glucose 430 H 06/09/18 06/09/18 06/09/18 05:11 07:51 08:59 WBC RBC Hgb Hct MCV MCH MCHC RDW RDW Differential Plt Count MPV Immature Gran % (Auto) Neut % (Auto) Lymph % (Auto) [place] % (Auto) Eos % (Auto) Baso % (Auto) Absolute Neuts (auto) Absolute Lymphs (auto) Total Counted Differential Comment Hypochromasia Microcytosis Sodium Potassium Chloride Carbon Dioxide Anion Gap BUN Creatinine Estim Creat Clear Calc Est GFR (MDRD) Af Amer Est GFR (MDRD) Non-Af BUN/Creatinine Ratio Glucose Hemoglobin A1c Calcium Iron TIBC Iron Saturation Ferritin Vitamin B12 Folate POC Glucose 463 H* 468 H* 429 H 06/09/18 06/09/18 06/09/18 10:06 11:13 13:32 WBC RBC Hgb Hct MCV MCH MCHC RDW RDW Differential Plt Count MPV Immature Gran % (Auto) Neut % (Auto) Lymph % (Auto) [place] % (Auto) Eos % (Auto) Baso % (Auto) Absolute Neuts (auto) Absolute Lymphs (auto) Total Counted Differential Comment Hypochromasia Microcytosis Sodium Potassium Chloride Carbon Dioxide Anion Gap BUN Creatinine Estim Creat Clear Calc Est GFR (MDRD) Af Amer Est GFR (MDRD) Non-Af BUN/Creatinine Ratio Glucose Hemoglobin A1c Calcium Iron TIBC Iron Saturation Ferritin Vitamin B12 Folate POC Glucose 419 H 381 H 259 H 06/09/18 06/09/18 06/09/18 17:27 21:43 23:55 WBC RBC Hgb Hct MCV MCH MCHC RDW RDW Differential Plt Count MPV Immature Gran % (Auto) Neut % (Auto) Lymph % (Auto) [place] % (Auto) Eos % (Auto) Baso % (Auto) Absolute Neuts (auto) Absolute Lymphs (auto) Total Counted Differential Comment Hypochromasia Microcytosis Sodium Potassium Chloride Carbon Dioxide Anion Gap BUN Creatinine Estim Creat Clear Calc Est GFR (MDRD) Af Amer Est GFR (MDRD) Non-Af BUN/Creatinine Ratio Glucose Hemoglobin A1c Calcium Iron TIBC Iron Saturation Ferritin Vitamin B12 Folate POC Glucose 309 H 383 H 371 H 06/10/18 06/10/18 06/10/18 02:16 04:20 04:20 WBC 10.6 RBC 2.38 L Hgb 7.4 L Hct 23.5 L MCV 98.7 MCH 31.1 MCHC 31.5 L RDW 14.7 H RDW Differential 51.6 H Plt Count 250 MPV 9.4 Immature Gran % (Auto) 0.600 Neut % (Auto) 87.9 H Lymph % (Auto) 4.9 L [place] % (Auto) 6.5 Eos % (Auto) 0.0 Baso % (Auto) 0.1 Absolute Neuts (auto) 9.4 H Absolute Lymphs (auto) 0.52 L Total Counted Not Reportable Differential Comment SCANNED Hypochromasia 2+ Microcytosis 2+ Sodium 139 Potassium 5.2 H Chloride 101 Carbon Dioxide 29.0 Anion Gap 9 BUN 90 H Creatinine 2.79 H Estim Creat Clear Calc 18.33 Est GFR (MDRD) Af Amer 22 L Est GFR (MDRD) Non-Af 18 L BUN/Creatinine Ratio 32.3 H Glucose 391 H Hemoglobin A1c Calcium 8.4 L Iron TIBC Iron Saturation Ferritin Vitamin B12 Folate POC Glucose 347 H 06/10/18 06/10/18 06/10/18 04:20 04:20 04:20 WBC RBC Hgb Hct MCV MCH MCHC RDW RDW Differential Plt Count MPV Immature Gran % (Auto) Neut % (Auto) Lymph % (Auto) [place] % (Auto) Eos % (Auto) Baso % (Auto) Absolute Neuts (auto) Absolute Lymphs (auto) Total Counted Differential Comment Hypochromasia Microcytosis Sodium Potassium Chloride Carbon Dioxide Anion Gap BUN Creatinine Estim Creat Clear Calc Est GFR (MDRD) Af Amer Est GFR (MDRD) Non-Af BUN/Creatinine Ratio Glucose Hemoglobin A1c Pending Calcium Iron Pending TIBC Pending Iron Saturation Pending Ferritin Pending Vitamin B12 Pending Folate Pending POC Glucose 06/10/18 06:00 WBC RBC Hgb Hct MCV MCH MCHC RDW RDW Differential Plt Count MPV Immature Gran % (Auto) Neut % (Auto) Lymph % (Auto) [place] % (Auto) Eos % (Auto) Baso % (Auto) Absolute Neuts (auto) Absolute Lymphs (auto) Total Counted Differential Comment Hypochromasia Microcytosis Sodium Potassium Chloride Carbon Dioxide Anion Gap BUN Creatinine Estim Creat Clear Calc Est GFR (MDRD) Af Amer Est GFR (MDRD) Non-Af BUN/Creatinine Ratio Glucose Hemoglobin A1c Calcium Iron TIBC Iron Saturation Ferritin Vitamin B12 Folate POC Glucose 414 H Microbiology 06/08/18 07:24 Sputum, Tracheal Aspirate Gram Stain - Final 06/08/18 07:24 Sputum, Tracheal Aspirate Respiratory Culture - Preliminary Coag Negative Staph 06/06/18 14:40 Sputum, Induced/Lukens Gram Stain - Final 06/06/18 14:40 Sputum, Induced/Lukens Respiratory Culture - Preliminary Alpha Hemolytic Streptococcus Clinical Impression(s) from Imaging Studies Chest X-Ray 06/04/18 12:20 IMPRESSION: Pulmonary edema or bilateral pneumonia. Electronically Signed: Karena Hawk, at 12:38 EDT Tel , Service support , Chest CT 06/04/18 13:06 IMPRESSION: Chronic interstitial lung disease with superimposed bilateral patchy pneumonia. Electronically Signed: Karena Hawk, at 14:44 EDT Tel , Service support , Chest X-Ray 06/06/18 08:50 IMPRESSION: Increased diffuse bilateral pulmonary interstitial lung markings and alveolar disease, this may represent increasing pulmonary edema and/or worsening pneumonia. There is suggestion of small bilateral pleural effusions. Electronically Signed: Carmen Price, at 9:34 EDT Tel , Service support , Chest CTA 06/06/18 10:50 IMPRESSION: No demonstrated pulmonary embolism or arterial dissection. Worsening bilateral pneumonia or ARDS. Electronically Signed: Karena Hawk, at 12:33 EDT Tel , Service support , Chest X-Ray 06/06/18 14:26 IMPRESSION: ET tube and enteric tube as above. Stable diffuse patchy airspace disease bilaterally Electronically Signed: Julito Staton, DO at 16:32 EDT Tel , Service support , Chest X-Ray 06/07/18 12:49 IMPRESSION: Pulmonary edema. Electronically Signed: Karena Hawk, at 13:53 EDT Tel , Service support , Medical Necessity - Tobacco Use Smoking Status: Former smoker Tobacco Use: Cigarettes Assessment/Plan All Active Problems Severe sepsis (Acute) Hyperkalemia (Acute) Metabolic acidosis (Acute) Tobacco use disorder (Resolved) Cocaine dependence, episodic (Resolved) RECOMMENDATIONS: 1. Continue to wean FiO2 and PEEP to maintain an oxygen saturation at or above 90%. 2. Continue hemodialysis support per nephrology recommendations. 3. Continue antibiotics. 4. Continue tube feeds as ordered. 5. Increase Lantus regimen. 6. Continue bronchodilators and steroids. 7. Continue appropriate ICU prophylaxis IMPRESSIONS: 1. Acute on chronic combined respiratory failure secondary to possible ARDS The patient has reported underlying IPF, for which she is currently prescribed Ofev by Dr. Olivia at [facility]. Therefore, the patient's decompensated respiratory status is likely multifactorial in etiology, with interstitial lung disease, pneumonia and a component of heart failure contributing. We will plan to continue current supportive measures with invasive mechanical ventilation. Wean FiO2 and PEEP to maintain an oxygen saturation at or above 90%, if feasible. Continue volume optimization with hemodialysis per nephrology recommendations. Continue antibiotics as ordered. 2. Heart failure with preserved ejection fraction/pulmonary hypertension As noted above, will continue attempts at volume optimization with hemodialysis per nephrology recommendations. Underlying pulmonary hypertension is likely related to the patient's interstitial lung disease. 3. Uncontrolled diabetes mellitus Consider dose de-escalation of IV steroids. Increase Lantus regimen further and continue sliding scale insulin coverage. 4. Acute on chronic kidney disease Nephrology is currently following. Etiology for kidney disease is felt to be secondary to ATN. Continue hemodialysis support as indicated. 5. Morbid obesity/CKD stage III/hypertension/hyperlipidemia/depression/GERD/history of tobacco dependency Complicates care, management, recovery and prognosis. Continue to hold nephrotoxic medications. Physical therapy evaluation, once medically stabilized. TIME: 40 minutes of critical care time, independent of procedures, was spent addressing the patient's acute on chronic combined respiratory failure, underlying interstitial lung disease, possible ARDS, heart failure with preserved ejection fraction, pulmonary hypertension, uncontrolled diabetes mellitus, review of all data and collaboration with the care team. ([id number]) Code Visit 9xxxx: [id number] Critical care first hour
--- NOTE | 2018-06-10 06:54 | PN_ITS ---
Subjective: The patient was seen and examined at the bedside this morning. Events from the last 24 hours have been reviewed. The patient is currently afebrile, hemodynamically stable and maintaining appropriate oxygen saturations on assist control with an FiO2 requirement of 45% and PEEP of 6. Nursing staff does report that the patient avidly desaturates with any movement in bed. Tube feeds were placed on hold for approximately 4 hours overnight due to high residuals. Despite being on scheduled Lantus and sliding scale insulin coverage, the patient's blood glucose levels remain elevated. There are tentative plans for for the patient to undergo hemodialysis today. The patient remains sedated on fentanyl and propofol. Objective: The patient's most recent lab work, culture data and imaging studies have all been personally reviewed. CTA chest dated June 06 revealed no evidence for pulmonary embolism, but did demonstrate bilateral pneumonia/ARDS. Surface echocardiogram revealed normal LV size and function with an ejection fraction of 65%. The RV was moderately dilated. Right ventricular systolic pressure was e stimated to be 56 mmHg. Blood cultures have shown no growth to date. Respiratory viral panel was negative. Sputum culture was positive for alpha hemolytic Streptococcus and coag negative staph. General: - - Intubated, sedated and mechanically ventilated. Currently tolerating assist control mode of mechanical ventilation without dyssynchrony noted. HEENT: Atraumatic, PERRLA, Normocephalic Oral: No Gingival or Mucosal Lesions/ Ulcerations, - - Endotracheal and OG tube currently in place Neck: Supple, No Nodes, Trachea Midline, - - Right-sided temporary hemodialysis catheter, left-sided triple-lumen catheter Lungs: No rhonchi, No wheeze, No rales, Diminished Cardiovascular: Regular rate, Regular Rhythm, Normal S1, Normal S2, No murmurs Abdomen: Bowel Sounds Present, Soft, Non Tender, Obese Extremities: No clubbing, No cyanosis, Edema Skin: No breakdown Musculoskeletal: No Tenderness to Palpation of Joints or Extremities, No Muscle Wasting Lymphatic: No Cervical, Supraclavicular, or Inguinal Adenopathy Neurological: - - No focal neurological deficits. Currently sedated with a RASS of -1. Vital Signs Temp Pulse Resp BP Pulse Ox 36.5 C L 62 16 128/54 H 93 06/10/18 04:00 06/10/18 05:08 06/10/18 05:08 06/10/18 05:00 06/10/18 05:08 Oxygen Flow Rate (L/min) 15 Oxygen Delivery Method Mechanical Ventilator Weight: 292 lb 5.327 oz Body Mass Index (BMI) 51.5 Finger Stick Blood Glucose 383 Intake and Output for Last 24 Hours 06/08/18 06/09/18 06/10/18 23:59 23:59 23:59 Intake Total 3588.9 / 3588.9 3262.0 / 3262.0 100 / 100 Output Total 2500 / 2500 1750 / 1750 Balance 1088.9 / 1088.9 1512.0 / 1512.0 100 / 100 Labs (Last 48 Hours) 06/08/18 06/08/18 06/08/18 03:45 11:48 17:48 WBC RBC Hgb Hct MCV MCH MCHC RDW RDW Differential Plt Count MPV Immature Gran % (Auto) Neut % (Auto) Lymph % (Auto) [place] % (Auto) Eos % (Auto) Baso % (Auto) Absolute Neuts (auto) Absolute Lymphs (auto) Total Counted Differential Comment Hypochromasia Microcytosis Sodium Potassium Chloride Carbon Dioxide Anion Gap BUN Creatinine Estim Creat Clear Calc Est GFR (MDRD) Af Amer Est GFR (MDRD) Non-Af BUN/Creatinine Ratio Glucose Hemoglobin A1c Calcium Iron 102 TIBC 227 L Iron Saturation 44.9 Ferritin Vitamin B12 Folate POC Glucose 218 H 319 H 06/08/18 06/09/18 06/09/18 23:04 03:55 03:55 WBC 8.4 RBC 2.27 L Hgb 7.0 L Hct 22.4 L MCV 98.7 MCH 30.8 MCHC 31.3 L RDW 15.0 H RDW Differential 54.0 H Plt Count 276 MPV 9.5 Immature Gran % (Auto) 0.400 Neut % (Auto) 88.2 H Lymph % (Auto) 5.6 L [place] % (Auto) 5.8 Eos % (Auto) 0.0 Baso % (Auto) 0.0 Absolute Neuts (auto) 7.4 Absolute Lymphs (auto) 0.47 L Total Counted Not Reportable Differential Comment Hypochromasia Microcytosis Sodium 136 Potassium 5.0 Chloride 97 L Carbon Dioxide 29.0 Anion Gap 10 BUN 71 H Creatinine 2.93 H Estim Creat Clear Calc 17.45 Est GFR (MDRD) Af Amer 21 L Est GFR (MDRD) Non-Af 17 L BUN/Creatinine Ratio 24.2 H Glucose 503 H* Hemoglobin A1c Calcium 8.0 L Iron TIBC Iron Saturation Ferritin Vitamin B12 Folate POC Glucose 430 H 06/09/18 06/09/18 06/09/18 05:11 07:51 08:59 WBC RBC Hgb Hct MCV MCH MCHC RDW RDW Differential Plt Count MPV Immature Gran % (Auto) Neut % (Auto) Lymph % (Auto) [place] % (Auto) Eos % (Auto) Baso % (Auto) Absolute Neuts (auto) Absolute Lymphs (auto) Total Counted Differential Comment Hypochromasia Microcytosis Sodium Potassium Chloride Carbon Dioxide Anion Gap BUN Creatinine Estim Creat Clear Calc Est GFR (MDRD) Af Amer Est GFR (MDRD) Non-Af BUN/Creatinine Ratio Glucose Hemoglobin A1c Calcium Iron TIBC Iron Saturation Ferritin Vitamin B12 Folate POC Glucose 463 H* 468 H* 429 H 06/09/18 06/09/18 06/09/18 10:06 11:13 13:32 WBC RBC Hgb Hct MCV MCH MCHC RDW RDW Differential Plt Count MPV Immature Gran % (Auto) Neut % (Auto) Lymph % (Auto) [place] % (Auto) Eos % (Auto) Baso % (Auto) Absolute Neuts (auto) Absolute Lymphs (auto) Total Counted Differential Comment Hypochromasia Microcytosis Sodium Potassium Chloride Carbon Dioxide Anion Gap BUN Creatinine Estim Creat Clear Calc Est GFR (MDRD) Af Amer Est GFR (MDRD) Non-Af BUN/Creatinine Ratio Glucose Hemoglobin A1c Calcium Iron TIBC Iron Saturation Ferritin Vitamin B12 Folate POC Glucose 419 H 381 H 259 H 06/09/18 06/09/18 06/09/18 17:27 21:43 23:55 WBC RBC Hgb Hct MCV MCH MCHC RDW RDW Differential Plt Count MPV Immature Gran % (Auto) Neut % (Auto) Lymph % (Auto) [place] % (Auto) Eos % (Auto) Baso % (Auto) Absolute Neuts (auto) Absolute Lymphs (auto) Total Counted Differential Comment Hypochromasia Microcytosis Sodium Potassium Chloride Carbon Dioxide Anion Gap BUN Creatinine Estim Creat Clear Calc Est GFR (MDRD) Af Amer Est GFR (MDRD) Non-Af BUN/Creatinine Ratio Glucose Hemoglobin A1c Calcium Iron TIBC Iron Saturation Ferritin Vitamin B12 Folate POC Glucose 309 H 383 H 371 H 06/10/18 06/10/18 06/10/18 02:16 04:20 04:20 WBC 10.6 RBC 2.38 L Hgb 7.4 L Hct 23.5 L MCV 98.7 MCH 31.1 MCHC 31.5 L RDW 14.7 H RDW Differential 51.6 H Plt Count 250 MPV 9.4 Immature Gran % (Auto) 0.600 Neut % (Auto) 87.9 H Lymph % (Auto) 4.9 L [place] % (Auto) 6.5 Eos % (Auto) 0.0 Baso % (Auto) 0.1 Absolute Neuts (auto) 9.4 H Absolute Lymphs (auto) 0.52 L Total Counted Not Reportable Differential Comment SCANNED Hypochromasia 2+ Microcytosis 2+ Sodium 139 Potassium 5.2 H Chloride 101 Carbon Dioxide 29.0 Anion Gap 9 BUN 90 H Creatinine 2.79 H Estim Creat Clear Calc 18.33 Est GFR (MDRD) Af Amer 22 L Est GFR (MDRD) Non-Af 18 L BUN/Creatinine Ratio 32.3 H Glucose 391 H Hemoglobin A1c Calcium 8.4 L Iron TIBC Iron Saturation Ferritin Vitamin B12 Folate POC Glucose 347 H 06/10/18 06/10/18 06/10/18 04:20 04:20 04:20 WBC RBC Hgb Hct MCV MCH MCHC RDW RDW Differential Plt Count MPV Immature Gran % (Auto) Neut % (Auto) Lymph % (Auto) [place] % (Auto) Eos % (Auto) Baso % (Auto) Absolute Neuts (auto) Absolute Lymphs (auto) Total Counted Differential Comment Hypochromasia Microcytosis Sodium Potassium Chloride Carbon Dioxide Anion Gap BUN Creatinine Estim Creat Clear Calc Est GFR (MDRD) Af Amer Est GFR (MDRD) Non-Af BUN/Creatinine Ratio Glucose Hemoglobin A1c Pending Calcium Iron Pending TIBC Pending Iron Saturation Pending Ferritin Pending Vitamin B12 Pending Folate Pending POC Glucose 06/10/18 06:00 WBC RBC Hgb Hct MCV MCH MCHC RDW RDW Differential Plt Count MPV Immature Gran % (Auto) Neut % (Auto) Lymph % (Auto) [place] % (Auto) Eos % (Auto) Baso % (Auto) Absolute Neuts (auto) Absolute Lymphs (auto) Total Counted Differential Comment Hypochromasia Microcytosis Sodium Potassium Chloride Carbon Dioxide Anion Gap BUN Creatinine Estim Creat Clear Calc Est GFR (MDRD) Af Amer Est GFR (MDRD) Non-Af BUN/Creatinine Ratio Glucose Hemoglobin A1c Calcium Iron TIBC Iron Saturation Ferritin Vitamin B12 Folate POC Glucose 414 H Microbiology 06/08/18 07:24 Sputum, Tracheal Aspirate Gram Stain - Final 06/08/18 07:24 Sputum, Tracheal Aspirate Respiratory Culture - Preliminary Coag Negative Staph 06/06/18 14:40 Sputum, Induced/Lukens Gram Stain - Final 06/06/18 14:40 Sputum, Induced/Lukens Respiratory Culture - Preliminary Alpha Hemolytic Streptococcus Clinical Impression(s) from Imaging Studies Chest X-Ray 06/04/18 12:20 IMPRESSION: Pulmonary edema or bilateral pneumonia. Electronically Signed: Karena Hawk, at 12:38 EDT Tel , Service support , Chest CT 06/04/18 13:06 IMPRESSION: Chronic interstitial lung disease with superimposed bilateral patchy pneumonia. Electronically Signed: Karena Hawk, at 14:44 EDT Tel , Service support , Chest X-Ray 06/06/18 08:50 IMPRESSION: Increased diffuse bilateral pulmonary interstitial lung markings and alveolar disease, this may represent increasing pulmonary edema and/or worsening pneumonia. There is suggestion of small bilateral pleural effusions. Electronically Signed: Carmen Price, at 9:34 EDT Tel , Service support , Chest CTA 06/06/18 10:50 IMPRESSION: No demonstrated pulmonary embolism or arterial dissection. Worsening bilateral pneumonia or ARDS. Electronically Signed: Karena Hawk, at 12:33 EDT Tel , Service support , Chest X-Ray 06/06/18 14:26 IMPRESSION: ET tube and enteric tube as above. Stable diffuse patchy airspace disease bilaterally Electronically Signed: Julito Staton, DO at 16:32 EDT Tel , Service support , Chest X-Ray 06/07/18 12:49 IMPRESSION: Pulmonary edema. Electronically Signed: Karena Hawk, at 13:53 EDT Tel , Service support , Medical Necessity - Tobacco Use Smoking Status: Former smoker Tobacco Use: Cigarettes Assessment/Plan All Active Problems Severe sepsis (Acute) Hyperkalemia (Acute) Metabolic acidosis (Acute) Tobacco use disorder (Resolved) Cocaine dependence, episodic (Resolved) RECOMMENDATIONS: 1. Continue to wean FiO2 and PEEP to maintain an oxygen saturation at or above 90%. 2. Continue hemodialysis support per nephrology recommendations. 3. Continue antibiotics. 4. Continue tube feeds as ordered. 5. Increase Lantus regimen. 6. Continue bronchodilators and steroids. 7. Continue appropriate ICU prophylaxis IMPRESSIONS: 1. Acute on chronic combined respiratory failure secondary to possible ARDS The patient has reported underlying IPF, for which she is currently prescribed Ofev by Dr. Olivia at [facility]. Therefore, the patient's decompensated respiratory status is likely multifactorial in etiology, with interstitial lung disease, pneumonia and a component of heart failure contributing. We will plan to continue current supportive measures with invasive mechanical ventilation. Wean FiO2 and PEEP to maintain an oxygen saturation at or above 90%, if feasible. Continue volume optimization with hemodialysis per nephrology recommendations. Continue antibiotics as ordered. 2. Heart failure with preserved ejection fraction/pulmonary hypertension As noted above, will continue attempts at volume optimization with hemodialysis per nephrology recommendations. Underlying pulmonary hypertension is likely related to the patient's interstitial lung disease. 3. Uncontrolled diabetes mellitus Consider dose de-escalation of IV steroids. Increase Lantus regimen further and continue sliding scale insulin coverage. 4. Acute on chronic kidney disease Nephrology is currently following. Etiology for kidney disease is felt to be secondary to ATN. Continue hemodialysis support as indicated. 5. Morbid obesity/CKD stage III/hypertension/hyperlipidemia/depression/GERD/history of tobacco dependency Complicates care, management, recovery and prognosis. Continue to hold nephrotoxic medications. Physical therapy evaluation, once medically stabilized. TIME: 40 minutes of critical care time, independent of procedures, was spent addressing the patient's acute on chronic combined respiratory failure, underlying interstitial lung disease, possible ARDS, heart failure with preserved ejection fraction, pulmonary hypertension, uncontrolled diabetes mellitus, review of all data and collaboration with the care team. ([id number]) Code Visit [id number]: [id number] Critical care first hour
[2018-06-10 07:04] LABS: Ferritin 577 ng/mL (8-252); Iron 55 ug/dL (50-170); Iron Binding Capacity,Total 227 ug/dL (250-450); PERCENT IRON SATURATION 24.2 % (15.0-55.0)
[2018-06-10 07:50] LABS: Bedside Glucose 340 mg/dL (70-110)
[2018-06-10 07:50] LABS: Hemoglobin A1c 6.3 % (4.2-6.3)
[2018-06-10] MEDS: Vital AF 1.2 Cal Liquid 1,000 ML 60 ML GT (09:25)
[2018-06-10] MEDS: Glycerin/Hypromellose/PEG400 15 ml Bottle 1 DRP RIGHT EYE ×2 (09:25→22:43)
[2018-06-10] MEDS: Chlorhexidine 15 ML PO ×2 (09:27→22:43)
[2018-06-10] MEDS: Citalopram 40 MG TABLET GT (09:27)
[2018-06-10] MEDS: Gabapentin 300 MG Capsule GT ×2 (09:27→22:40)
[2018-06-10] MEDS: prednisoLONE eye drops (5 mL) 1 DROP OPTH.BTL 2 DRP LEFT EYE (09:28)
[2018-06-10] MEDS: Senna Tablet 2 TABLET GT (09:28)
[2018-06-10] MEDS: Famotidine 20 MG Tablet GT (09:28)
[2018-06-10 09:44] LABS: Vitamin B12 939 pg/mL (211-911)
[2018-06-10 10:25] LABS: Bedside Glucose 354 mg/dL (70-110)
[2018-06-10 11:09] LABS: Hep B Surface Antibodies Non Reactive (.); Hepatitis B Core Ab Total Negative (Negative)
--- NOTE | 2018-06-10 11:57 | PN.RENAL_ITS ---
Patient Problems: Active and Suspected Problems Severe sepsis (Acute) Hyperkalemia (Acute) Metabolic acidosis (Acute) Subjective: no new events no pressors - Physical Exam HEENT: Atraumatic, PERRLA, EOMI, Normocephalic Neck: Supple, No JVD, Negative Carotid Bruits Lungs: Clear to auscultation, Normal air movement Cardiovascular: Regular rate, No murmurs Abdomen: Bowel Sounds Present, Soft, Non Tender Extremities: No edema, Capillary Refill Less than 3 Seconds Skin: No rashes, No breakdown Musculoskeletal: No Tenderness to Palpation of Joints or Extremities Vital Signs Temp Pulse Resp BP Pulse Ox 97.7 F L 71 17 128/59 H 92 06/10/18 08:00 06/10/18 10:55 06/10/18 10:55 06/10/18 10:00 06/10/18 10:55 Oxygen Flow Rate (L/min) 15 Oxygen Delivery Method Mechanical Ventilator Weight: 132.6 kg Body Mass Index (BMI) 51.5 Finger Stick Blood Glucose 383 Intake and Output for Last 24 Hours 06/08/18 06/09/18 06/10/18 23:59 23:59 23:59 Intake Total 3588.9 / 3588.9 3262.0 / 3262.0 507.6 / 507.6 Output Total 2500 / 2500 1750 / 1750 650 / 650 Balance 1088.9 / 1088.9 1512.0 / 1512.0 -142.4 / -142.4 Microbiology Past 72 Hours 06/06/18 14:40 Gram Stain - Final Sputum, Induced/Lukens Respiratory Culture - Preliminary Gram negative kaylin Alpha Hemolytic Streptococcus 06/08/18 07:24 Gram Stain - Final Sputum, Tracheal Aspirate Respiratory Culture - Final Coag Negative Staph 06/10/18 06:50 Stool Occult Blood (EVA) - Final Stool Occult Blood Positive 06/04/18 15:15 Blood Culture - Final Blood Culture (Wb) - Right Hand No growth in 5 days. 06/04/18 12:03 Blood Culture - Final Blood Culture (Wb) - Anticubital Left No growth in 5 days. Laboratory Tests Past 24 Hrs 06/08/18 06/10/18 06/10/18 03:45 04:20 04:20 WBC 10.6 RBC 2.38 L Hgb 7.4 L Hct 23.5 L MCV 98.7 MCH 31.1 MCHC 31.5 L RDW 14.7 H RDW Differential 51.6 H Plt Count 250 MPV 9.4 Immature Gran % (Auto) 0.600 Neut % (Auto) 87.9 H Lymph % (Auto) 4.9 L [place] % (Auto) 6.5 Eos % (Auto) 0.0 Baso % (Auto) 0.1 Absolute Neuts (auto) 9.4 H Absolute Lymphs (auto) 0.52 L Total Counted Not Reportable Differential Comment SCANNED Hypochromasia 2+ Microcytosis 2+ Sodium 139 Potassium 5.2 H Chloride 101 Carbon Dioxide 29.0 Anion Gap 9 BUN 90 H Creatinine 2.79 H Estim Creat Clear Calc 18.33 Est GFR (MDRD) Af Amer 22 L Est GFR (MDRD) Non-Af 18 L BUN/Creatinine Ratio 32.3 H Glucose 391 H Hemoglobin A1c Calcium 8.4 L Iron TIBC Iron Saturation Ferritin Vitamin B12 Folate Hep Bs Antigen Negative Hep Bs Antibody Non Reactive Hep B Core Total Ab Negative 06/10/18 06/10/18 06/10/18 04:20 04:20 04:20 WBC RBC Hgb Hct MCV MCH MCHC RDW RDW Differential Plt Count MPV Immature Gran % (Auto) Neut % (Auto) Lymph % (Auto) [place] % (Auto) Eos % (Auto) Baso % (Auto) Absolute Neuts (auto) Absolute Lymphs (auto) Total Counted Differential Comment Hypochromasia Microcytosis Sodium Potassium Chloride Carbon Dioxide Anion Gap BUN Creatinine Estim Creat Clear Calc Est GFR (MDRD) Af Amer Est GFR (MDRD) Non-Af BUN/Creatinine Ratio Glucose Hemoglobin A1c 6.3 Calcium Iron 55 TIBC 227 L Iron Saturation 24.2 Ferritin 577 H Vitamin B12 939 H Folate 19.30 Hep Bs Antigen Hep Bs Antibody Hep B Core Total Ab POC Glucose 06/10/18 06/10/18 06/10/18 09:40 07:42 06:00 POC Glucose 354 H 340 H 414 H 06/10/18 06/09/18 06/09/18 02:16 23:55 21:43 POC Glucose 347 H 371 H 383 H 06/09/18 06/09/18 17:27 13:32 POC Glucose 309 H 259 H Medical Necessity - Tobacco Use Smoking Status: Former smoker Tobacco Use: Cigarettes Assessment/Plan All Active Problems Severe sepsis (Acute) Hyperkalemia (Acute) Metabolic acidosis (Acute) Tobacco use disorder (Resolved) Cocaine dependence, episodic (Resolved) 1-acute kidney injury on chronic kidney disease. Patient has chronic kidney disease stage IV. MARIAN is most probably from sepsis induced ATN. HD started last . Right IJ temporary hemodialysis access is in place. urine output is better. creatinine is somewhat stable she is still on a lot of O2 on vent. will try for UF 2-3 L 2-hyperkalemia. better 3-Metabolic acidosis: better 4-acute respiratory failure due to ARDS/pneumonia. CXR shows bilateral interstitial markings. edema vs ARDS vs preexisting ILD or a combination of all continue fluid removal as tolerated d/w Dr bernal
[2018-06-10] MEDS: predniSONE 20 MG Tablet 40 MG GT (12:04)
[2018-06-10] MEDS: Metoclopramide 10 MG/2 ML Vial 5 MG IV ×2 (12:04→18:46)
--- NOTE | 2018-06-10 13:52 | NURSING ---
1330 went in with [employer]NT to turn patient. turned patient on to right side. patient did not tolerate began coughing over the ventilator and desating, suctioned thick secretions from ETT, patient went in and out of what looked like a junctional rhythm, by the time EKG machine was in room patient had already converted back to NSR, pulled wedge out so patient was placed on her back and seemed to tolerate this position better.
[2018-06-10 14:11] LABS: Bedside Glucose 414 mg/dL (70-110)
--- NOTE | 2018-06-10 17:56 | NURSING ---
reviewed david ann RN charting and agree with assessment findings
--- NOTE | 2018-06-10 18:13 | DIALYSIS ---
Hemodialysis x 2.5hours on 2K bath. -1500ml removed. Pt BP would not tolerated higher fluid removal. CVC required line reversal to run at higher BFR. CVC closed with Heparin to each lumen fill volume. Report to Frida NUÑEZ
[2018-06-10] MEDS: Heparin 10,000 UNITS/10 ML Vial IV (18:19)
[2018-06-10 19:01] LABS: Bedside Glucose 249 mg/dL (70-110)
[2018-06-10] MEDS: Atorvastatin Calcium 40 MG Tablet GT (22:40)
[2018-06-10 22:41] LABS: Bedside Glucose 298 mg/dL (70-110)
[2018-06-10] MEDS: Cyclopentolate 1% 2 ML Bottle 1 DRP LEFT EYE (22:44)
[2018-06-11] VITALS (33 sets, daily range): BP systolic 90–155; BP diastolic 54–98; PULSE 57–133; RESP 15–28; TEMP 35.8–36.9; O2SAT 88–100
[2018-06-11] MEDS: Propofol 10MG/Ml 1,000 MG/100 ML Bottle 8.232 MG CONT INF ×4 (01:10→20:01)
[2018-06-11] MEDS: Insulin Lispro 100 UNIT/ML INSULN.PEN SQ ×5 (02:17→21:52)
[2018-06-11 02:31] LABS: Bedside Glucose 277 mg/dL (70-110)
[2018-06-11 04:30] LABS: Anion Gap 9 (5-15); BUN 68 mg/dL (7-18); BUN/Creat Ratio 29.7 RATIO (10-20); Calcium,Total 8.2 mg/dL (8.5-10.1); Chloride 100 mmol/L (98-107); Creatinine, Serum 2.29 mg/dL (0.55-1.02); EST Glomerular Filtration Rate 23 mL/min (>60); Est Glom Filt Rate - Afr Amer 28 mL/min (>60); Estimated Creatinine Clearance 22.33 ml/min; Glucose 270 mg/dL (74-106); Potassium 4.3 mmol/L (3.5-5.1); Sodium Level 140 mmol/L (136-145)
[2018-06-11 04:45] LABS: Absolute Lymphocyte Count 2.49 X10^3/ul (0.83-4.51); Absolute Neutrophil Count 9.9 X10^3/uL (2.0-7.7); Absolute Nucleated RBC Count 0.06 10^3/uL (0-5); Basophil# 0.01 X10^3/uL; Basophil% 0.1 % (0-1); Eosinophil# 0.07 X10^3/uL; Eosinophils% 0.5 % (0-5); Hematocrit 26.5 % (37-47); Hemoglobin 8.4 g/dl (12.0-15.0); Lymphocyte # 2.49 X10^3/ul (4.0); Lymphocyte % 18.4 % (19-41); Mean Corp Hgb Conc 31.7 g/gl (32-36); Mean Corpuscular Hgb 31.5 pg (27.0-32.0); Mean Corpuscular Volume 99.3 fL (81-99); Mean Platelet Vol. 9.4 fl (6.2-12.0); Monocyte# 0.78 X10^3/uL; Monocyte% 5.8 % (0-10); NRBC Flagged by Analyzer 0.5 % (0-5); Neutrophil # 9.93 X10^3/uL (2.7-7.7); Neutrophil % 73.5 % (47-70); POSITIVE COUNT NO; POSITIVE DIFFERENTIAL NO; POSITIVE MORPHOLOGY NO; Platelet Count 272 K/mm3 (150-450); RBC Distribution Width CV 14.6 % (11.6-14.6); RBC Distribution Width SD 51.9 fl (35.1-43.9); Red Blood Count 2.67 M/mm3 (4.2-5.4); White Blood Count 13.5 K/mm3 (4.4-11.0)
--- NOTE | 2018-06-11 06:05 | PCM.PN.INT ---
Subjective: The patient was seen and examined at the bedside this morning. Events from the last 24 hours have been reviewed. The patient is currently afebrile, hemodynamically stable and maintaining appropriate oxygen saturations with an FiO2 requirement of 45% and PEEP of 6. The patient is currently on a spontaneous breathing trial. She did undergo dialysis yesterday with an additional 1.5 L of fluid removed. No overnight issues were identified by the nursing staff. There were no issues with the patient's tube feeds. The patient's blood glucose levels are under better control this morning. Objective: The patient's most recent lab work, culture data and imaging studies have all been personally reviewed. CTA chest dated June 06 revealed no evidence for pulmonary embolism, but did demonstrate bilateral pneumonia/ARDS. Surface echocardiogram revealed normal LV size and function with an ejection fraction of 65%. The RV was moderately dilated. Right ventricular systolic pressure was estimated to be 56 mmHg. Blood cultures have shown no growth to date. Respiratory viral panel was negative. Sputum culture was positive for alpha hemolytic Streptococcus and coag negative staph. General: Alert, - - Remains intubated and mechanically ventilated. Currently tolerating CPAP mode mechanical ventilation. HEENT: Atraumatic, PERRLA, Normocephalic Oral: No Gingival or Mucosal Lesions/ Ulcerations, - - Endotracheal and OG tubes remain in place. Neck: Supple, No Nodes, Trachea Midline Lungs: No rhonchi, No wheeze, No rales, Diminished Cardiovascular: Normal S1, Normal S2, No murmurs, Tachycardic Abdomen: Bowel Sounds Present, Soft, Non Tender, Obese Extremities: No clubbing, No cyanosis, Edema Skin: - - No significant change from previous. Musculoskeletal: No Tenderness to Palpation of Joints or Extremities, No Muscle Wasting Lymphatic: No Cervical, Supraclavicular, or Inguinal Adenopathy Neurological: - - No focal neurological deficits. Vital Signs Temp Pulse Resp BP Pulse Ox 36.3 C L 75 16 135/67 H 94 06/11/18 04:00 06/11/18 05:15 06/11/18 05:15 06/11/18 05:00 06/11/18 05:15 Oxygen Flow Rate (L/min) 15 Oxygen Delivery Method Mechanical Ventilator Weight: 287 lb 11.252 oz Body Mass Index (BMI) 51.5 Finger Stick Blood Glucose 383 Intake and Output for Last 24 Hours 06/09/18 06/10/18 06/11/18 23:59 23:59 23:59 Intake Total 3262.0 / 3262.0 2739.6 / 2739.6 816 / 816 Output Total 1750 / 1750 3525 / 3525 250 / 250 Balance 1512.0 / 1512.0 -785.4 / -785.4 566 / 566 Labs (Last 48 Hours) 06/08/18 06/09/18 06/09/18 03:45 07:51 08:59 WBC RBC Hgb Hct MCV MCH MCHC RDW RDW Differential Plt Count MPV Immature Gran % (Auto) Neut % (Auto) Lymph % (Auto) [place] % (Auto) Eos % (Auto) Baso % (Auto) Absolute Neuts (auto) Absolute Lymphs (auto) Total Counted Nucleated RBC % Differential Comment Hypochromasia Microcytosis Absolute Retic Sodium Potassium Chloride Carbon Dioxide Anion Gap BUN Creatinine Estim Creat Clear Calc Est GFR (MDRD) Af Amer Est GFR (MDRD) Non-Af BUN/Creatinine Ratio Glucose Hemoglobin A1c Calcium Iron TIBC Iron Saturation Ferritin Vitamin B12 Folate Hep Bs Antigen Negative Hep Bs Antibody Non Reactive Hep B Core Total Ab Negative POC Glucose 468 H* 429 H 06/09/18 06/09/18 06/09/18 10:06 11:13 13:32 WBC RBC Hgb Hct MCV MCH MCHC RDW RDW Differential Plt Count MPV Immature Gran % (Auto) Neut % (Auto) Lymph % (Auto) [place] % (Auto) Eos % (Auto) Baso % (Auto) Absolute Neuts (auto) Absolute Lymphs (auto) Total Counted Nucleated RBC % Differential Comment Hypochromasia Microcytosis Absolute Retic Sodium Potassium Chloride Carbon Dioxide Anion Gap BUN Creatinine Estim Creat Clear Calc Est GFR (MDRD) Af Amer Est GFR (MDRD) Non-Af BUN/Creatinine Ratio Glucose Hemoglobin A1c Calcium Iron TIBC Iron Saturation Ferritin Vitamin B12 Folate Hep Bs Antigen Hep Bs Antibody Hep B Core Total Ab POC Glucose 419 H 381 H 259 H 06/09/18 06/09/18 06/09/18 17:27 21:43 23:55 WBC RBC Hgb Hct MCV MCH MCHC RDW RDW Differential Plt Count MPV Immature Gran % (Auto) Neut % (Auto) Lymph % (Auto) [place] % (Auto) Eos % (Auto) Baso % (Auto) Absolute Neuts (auto) Absolute Lymphs (auto) Total Counted Nucleated RBC % Differential Comment Hypochromasia Microcytosis Absolute Retic Sodium Potassium Chloride Carbon Dioxide Anion Gap BUN Creatinine Estim Creat Clear Calc Est GFR (MDRD) Af Amer Est GFR (MDRD) Non-Af BUN/Creatinine Ratio Glucose Hemoglobin A1c Calcium Iron TIBC Iron Saturation Ferritin Vitamin B12 Folate Hep Bs Antigen Hep Bs Antibody Hep B Core Total Ab POC Glucose 309 H 383 H 371 H 06/10/18 06/10/18 06/10/18 02:16 04:20 04:20 WBC 10.6 RBC 2.38 L Hgb 7.4 L Hct 23.5 L MCV 98.7 MCH 31.1 MCHC 31.5 L RDW 14.7 H RDW Differential 51.6 H Plt Count 250 MPV 9.4 Immature Gran % (Auto) 0.600 Neut % (Auto) 87.9 H Lymph % (Auto) 4.9 L [place] % (Auto) 6.5 Eos % (Auto) 0.0 Baso % (Auto) 0.1 Absolute Neuts (auto) 9.4 H Absolute Lymphs (auto) 0.52 L Total Counted Not Reportable Nucleated RBC % Differential Comment SCANNED Hypochromasia 2+ Microcytosis 2+ Absolute Retic Sodium 139 Potassium 5.2 H Chloride 101 Carbon Dioxide 29.0 Anion Gap 9 BUN 90 H Creatinine 2.79 H Estim Creat Clear Calc 18.33 Est GFR (MDRD) Af Amer 22 L Est GFR (MDRD) Non-Af 18 L BUN/Creatinine Ratio 32.3 H Glucose 391 H Hemoglobin A1c Calcium 8.4 L Iron TIBC Iron Saturation Ferritin Vitamin B12 Folate Hep Bs Antigen Hep Bs Antibody Hep B Core Total Ab POC Glucose 347 H 06/10/18 06/10/18 06/10/18 04:20 04:20 04:20 WBC RBC Hgb Hct MCV MCH MCHC RDW RDW Differential Plt Count MPV Immature Gran % (Auto) Neut % (Auto) Lymph % (Auto) [place] % (Auto) Eos % (Auto) Baso % (Auto) Absolute Neuts (auto) Absolute Lymphs (auto) Total Counted Nucleated RBC % Differential Comment Hypochromasia Microcytosis Absolute Retic Sodium Potassium Chloride Carbon Dioxide Anion Gap BUN Creatinine Estim Creat Clear Calc Est GFR (MDRD) Af Amer Est GFR (MDRD) Non-Af BUN/Creatinine Ratio Glucose Hemoglobin A1c 6.3 Calcium Iron 55 TIBC 227 L Iron Saturation 24.2 Ferritin 577 H Vitamin B12 939 H Folate 19.30 Hep Bs Antigen Hep Bs Antibody Hep B Core Total Ab POC Glucose 06/10/18 06/10/18 06/10/18 06:00 07:42 09:40 WBC RBC Hgb Hct MCV MCH MCHC RDW RDW Differential Plt Count MPV Immature Gran % (Auto) Neut % (Auto) Lymph % (Auto) [place] % (Auto) Eos % (Auto) Baso % (Auto) Absolute Neuts (auto) Absolute Lymphs (auto) Total Counted Nucleated RBC % Differential Comment Hypochromasia Microcytosis Absolute Retic Sodium Potassium Chloride Carbon Dioxide Anion Gap BUN Creatinine Estim Creat Clear Calc Est GFR (MDRD) Af Amer Est GFR (MDRD) Non-Af BUN/Creatinine Ratio Glucose Hemoglobin A1c Calcium Iron TIBC Iron Saturation Ferritin Vitamin B12 Folate Hep Bs Antigen Hep Bs Antibody Hep B Core Total Ab POC Glucose 414 H 340 H 354 H 06/10/18 06/10/18 06/10/18 13:56 18:37 22:37 WBC RBC Hgb Hct MCV MCH MCHC RDW RDW Differential Plt Count MPV Immature Gran % (Auto) Neut % (Auto) Lymph % (Auto) [place] % (Auto) Eos % (Auto) Baso % (Auto) Absolute Neuts (auto) Absolute Lymphs (auto) Total Counted Nucleated RBC % Differential Comment Hypochromasia Microcytosis Absolute Retic Sodium Potassium Chloride Carbon Dioxide Anion Gap BUN Creatinine Estim Creat Clear Calc Est GFR (MDRD) Af Amer Est GFR (MDRD) Non-Af BUN/Creatinine Ratio Glucose Hemoglobin A1c Calcium Iron TIBC Iron Saturation Ferritin Vitamin B12 Folate Hep Bs Antigen Hep Bs Antibody Hep B Core Total Ab POC Glucose 414 H 249 H 298 H 06/11/18 06/11/18 06/11/18 02:15 04:05 04:05 WBC 13.5 H RBC 2.67 L Hgb 8.4 L Hct 26.5 L MCV 99.3 H MCH 31.5 MCHC 31.7 L RDW 14.6 RDW Differential 51.9 H Plt Count 272 MPV 9.4 Immature Gran % (Auto) 1.700 H Neut % (Auto) 73.5 H Lymph % (Auto) 18.4 L [place] % (Auto) 5.8 Eos % (Auto) 0.5 Baso % (Auto) 0.1 Absolute Neuts (auto) 9.9 H Absolute Lymphs (auto) 2.49 Total Counted Not Reportable Nucleated RBC % 0.5 Differential Comment Hypochromasia Microcytosis Absolute Retic 0.06 Sodium 140 Potassium 4.3 Chloride 100 Carbon Dioxide 31.0 Anion Gap 9 BUN 68 H Creatinine 2.29 H Estim Creat Clear Calc 22.33 Est GFR (MDRD) Af Amer 28 L Est GFR (MDRD) Non-Af 23 L BUN/Creatinine Ratio 29.7 H Glucose 270 H Hemoglobin A1c Calcium 8.2 L Iron TIBC Iron Saturation Ferritin Vitamin B12 Folate Hep Bs Antigen Hep Bs Antibody Hep B Core Total Ab POC Glucose 277 H Microbiology 06/06/18 14:40 Sputum, Induced/Lukens Gram Stain - Final 06/06/18 14:40 Sputum, Induced/Lukens Respiratory Culture - Preliminary Gram negative kaylin Alpha Hemolytic Streptococcus 06/08/18 07:24 Sputum, Tracheal Aspirate Gram Stain - Final 06/08/18 07:24 Sputum, Tracheal Aspirate Respiratory Culture - Final Coag Negative Staph 06/10/18 06:50 Stool Stool Occult Blood (EVA) - Final Occult Blood Positive 06/04/18 15:15 Blood Culture (Wb) - Right Hand Blood Culture - Final No growth in 5 days. 06/04/18 12:03 Blood Culture (Wb) - Anticubital Left Blood Culture - Final No growth in 5 days. Clinical Impression(s) from Imaging Studies Chest X-Ray 06/04/18 12:20 IMPRESSION: Pulmonary edema or bilateral pneumonia. Electronically Signed: Karena Hawk, at 12:38 EDT Tel , Service support , Chest CT 06/04/18 13:06 IMPRESSION: Chronic interstitial lung disease with superimposed bilateral patchy pneumonia. Electronically Signed: Karena Hawk, at 14:44 EDT Tel , Service support , Chest X-Ray 06/06/18 08:50 IMPRESSION: Increased diffuse bilateral pulmonary interstitial lung markings and alveolar disease, this may represent increasing pulmonary edema and/or worsening pneumonia. There is suggestion of small bilateral pleural effusions. Electronically Signed: Carmen Savmalou, at 9:34 EDT Tel , Service support , Chest CTA 06/06/18 10:50 IMPRESSION: No demonstrated pulmonary embolism or arterial dissection. Worsening bilateral pneumonia or ARDS. Electronically Signed: Karena Hawk, at 12:33 EDT Tel , Service support , Chest X-Ray 06/06/18 14:26 IMPRESSION: ET tube and enteric tube as above. Stable diffuse patchy airspace disease bilaterally Electronically Signed: Julito Staton DO at 16:32 EDT Tel , Service support , Chest X-Ray 06/07/18 12:49 IMPRESSION: Pulmonary edema. Electronically Signed: Karena Hawk, at 13:53 EDT Tel , Service support , Medical Necessity - Tobacco Use Smoking Status: Former smoker Tobacco Use: Cigarettes Assessment/Plan All Active Problems Severe sepsis (Acute) Hyperkalemia (Acute) Metabolic acidosis (Acute) Tobacco use disorder (Resolved) Cocaine dependence, episodic (Resolved) RECOMMENDATIONS: 1. Continue to wean FiO2 and PEEP to maintain an oxygen saturation at or above 90%. 2. Continue hemodialysis support per nephrology recommendations. 3. Continue antibiotics. 4. Hold tube feeds for now. Attempt to restart later today. 5. Continue Lantus and sliding scale insulin regimen. 6. Continue bronchodilators and steroids. 7. Continue appropriate ICU prophylaxis 8. Resume sedation and place patient back on assist control mode of mechanical ventilation. IMPRESSIONS: 1. Acute on chronic combined respiratory failure secondary to possible ARDS The patient has reported underlying IPF, for which she is currently prescribed Ofev by Dr. Olivia at [facility]. Therefore, the patient's decompensated respiratory status is likely multifactorial in etiology, with interstitial lung disease, pneumonia and a component of heart failure contributing. We will plan to continue current supportive measures with invasive mechanical ventilation. Wean FiO2 and PEEP to maintain an oxygen saturation at or above 90%, if feasible. Continue volume optimization with hemodialysis per nephrology recommendations. Continue antibiotics as ordered. 2. Heart failure with preserved ejection fraction/pulmonary hypertension As noted above, will continue attempts at volume optimization with hemodialysis per nephrology recommendations. Underlying pulmonary hypertension is likely related to the patient's interstitial lung disease. 3. Uncontrolled diabetes mellitus Continue Lantus and sliding scale and sling coverage. 4. Acute on chronic kidney disease Nephrology is currently following. Etiology for kidney disease is felt to be secondary to ATN. Continue hemodialysis support as indicated. 5. Morbid obesity/CKD stage III/hypertension/hyperlipidemia/depression/GERD/history of tobacco dependency Complicates care, management, recovery and prognosis. Continue to hold nephrotoxic medications. Physical therapy evaluation, once medically stabilized. TIME: 40 minutes of critical care time, independent of procedures, was spent addressing the patient's acute on chronic combined respiratory failure, underlying interstitial lung disease, possible ARDS, heart failure with preserved ejection fraction, pulmonary hypertension, uncontrolled diabetes mellitus, review of all data and collaboration with the care team. ([id number]) Code Visit [id number]: [id number] Critical care first hour
--- NOTE | 2018-06-11 06:08 | PN_ITS ---
Subjective: The patient was seen and examined at the bedside this morning. Events from the last 24 hours have been reviewed. The patient is currently afebrile, hemodynamically stable and maintaining appropriate oxygen saturations with an FiO2 requirement of 45% and PEEP of 6. The patient is currently on a spontaneous breathing trial. She did undergo dialysis yesterday with an additional 1.5 L of fluid removed. No overnight issues were identified by the nursing staff. There were no issues with the patient's tube feeds. The patient's blood glucose levels are under better control this morning. Objective: The patient's most recent lab work, culture data and imaging studies have all been personally reviewed. CTA chest dated June 06 revealed no evidence for pulmonary embolism, but did demonstrate bilateral pneumonia/ARDS. Surface echocardiogram revealed normal LV size and function with an ejection fraction of 65%. The RV was moderately dilated. Right ventricular systolic pressure was estimated to be 56 mmHg. Blood cultures have shown no growth to date. Respiratory viral panel was negative. Sputum culture was positive for alpha hemolytic Streptococcus and coag negative staph. General: Alert, - - Remains intubated and mechanically ventilated. Currently tolerating CPAP mode mechanical ventilation. HEENT: Atraumatic, PERRLA, Normocephalic Oral: No Gingival or Mucosal Lesions/ Ulcerations, - - Endotracheal and OG tubes remain in place. Neck: Supple, No Nodes, Trachea Midline Lungs: No rhonchi, No wheeze, No rales, Diminished Cardiovascular: Normal S1, Normal S2, No murmurs, Tachycardic Abdomen: Bowel Sounds Present, Soft, Non Tender, Obese Extremities: No clubbing, No cyanosis, Edema Skin: - - No significant change from previous. Musculoskeletal: No Tenderness to Palpation of Joints or Extremities, No Muscle Wasting Lymphatic: No Cervical, Supraclavicular, or Inguinal Adenopathy Neurological: - - No focal neurological deficits. Vital Signs Temp Pulse Resp BP Pulse Ox 36.3 C L 75 16 135/67 H 94 06/11/18 04:00 06/11/18 05:15 06/11/18 05:15 06/11/18 05:00 06/11/18 05:15 Oxygen Flow Rate (L/min) 15 Oxygen Delivery Method Mechanical Ventilator Weight: 287 lb 11.252 oz Body Mass Index (BMI) 51.5 Finger Stick Blood Glucose 383 Intake and Output for Last 24 Hours 06/09/18 06/10/18 06/11/18 23:59 23:59 23:59 Intake Total 3262.0 / 3262.0 2739.6 / 2739.6 816 / 816 Output Total 1750 / 1750 3525 / 3525 250 / 250 Balance 1512.0 / 1512.0 -785.4 / -785.4 566 / 566 Labs (Last 48 Hours) 06/08/18 06/09/18 06/09/18 03:45 07:51 08:59 WBC RBC Hgb Hct MCV MCH MCHC RDW RDW Differential Plt Count MPV Immature Gran % (Auto) Neut % (Auto) Lymph % (Auto) Liberty % (Auto) Eos % (Auto) Baso % (Auto) Absolute Neuts (auto) Absolute Lymphs (auto) Total Counted Nucleated RBC % Differential Comment Hypochromasia Microcytosis Absolute Retic Sodium Potassium Chloride Carbon Dioxide Anion Gap BUN Creatinine Estim Creat Clear Calc Est GFR (MDRD) Af Amer Est GFR (MDRD) Non-Af BUN/Creatinine Ratio Glucose Hemoglobin A1c Calcium Iron TIBC Iron Saturation Ferritin Vitamin B12 Folate Hep Bs Antigen Negative Hep Bs Antibody Non Reactive Hep B Core Total Ab Negative POC Glucose 468 H* 429 H 06/09/18 06/09/18 06/09/18 10:06 11:13 13:32 WBC RBC Hgb Hct MCV MCH MCHC RDW RDW Differential Plt Count MPV Immature Gran % (Auto) Neut % (Auto) Lymph % (Auto) Liberty % (Auto) Eos % (Auto) Baso % (Auto) Absolute Neuts (auto) Absolute Lymphs (auto) Total Counted Nucleated RBC % Differential Comment Hypochromasia Microcytosis Absolute Retic Sodium Potassium Chloride Carbon Dioxide Anion Gap BUN Creatinine Estim Creat Clear Calc Est GFR (MDRD) Af Amer Est GFR (MDRD) Non-Af BUN/Creatinine Ratio Glucose Hemoglobin A1c Calcium Iron TIBC Iron Saturation Ferritin Vitamin B12 Folate Hep Bs Antigen Hep Bs Antibody Hep B Core Total Ab POC Glucose 419 H 381 H 259 H 06/09/18 06/09/18 06/09/18 17:27 21:43 23:55 WBC RBC Hgb Hct MCV MCH MCHC RDW RDW Differential Plt Count MPV Immature Gran % (Auto) Neut % (Auto) Lymph % (Auto) Liberty % (Auto) Eos % (Auto) Baso % (Auto) Absolute Neuts (auto) Absolute Lymphs (auto) Total Counted Nucleated RBC % Differential Comment Hypochromasia Microcytosis Absolute Retic Sodium Potassium Chloride Carbon Dioxide Anion Gap BUN Creatinine Estim Creat Clear Calc Est GFR (MDRD) Af Amer Est GFR (MDRD) Non-Af BUN/Creatinine Ratio Glucose Hemoglobin A1c Calcium Iron TIBC Iron Saturation Ferritin Vitamin B12 Folate Hep Bs Antigen Hep Bs Antibody Hep B Core Total Ab POC Glucose 309 H 383 H 371 H 06/10/18 06/10/18 06/10/18 02:16 04:20 04:20 WBC 10.6 RBC 2.38 L Hgb 7.4 L Hct 23.5 L MCV 98.7 MCH 31.1 MCHC 31.5 L RDW 14.7 H RDW Differential 51.6 H Plt Count 250 MPV 9.4 Immature Gran % (Auto) 0.600 Neut % (Auto) 87.9 H Lymph % (Auto) 4.9 L Liberty % (Auto) 6.5 Eos % (Auto) 0.0 Baso % (Auto) 0.1 Absolute Neuts (auto) 9.4 H Absolute Lymphs (auto) 0.52 L Total Counted Not Reportable Nucleated RBC % Differential Comment SCANNED Hypochromasia 2+ Microcytosis 2+ Absolute Retic Sodium 139 Potassium 5.2 H Chloride 101 Carbon Dioxide 29.0 Anion Gap 9 BUN 90 H Creatinine 2.79 H Estim Creat Clear Calc 18.33 Est GFR (MDRD) Af Amer 22 L Est GFR (MDRD) Non-Af 18 L BUN/Creatinine Ratio 32.3 H Glucose 391 H Hemoglobin A1c Calcium 8.4 L Iron TIBC Iron Saturation Ferritin Vitamin B12 Folate Hep Bs Antigen Hep Bs Antibody Hep B Core Total Ab POC Glucose 347 H 06/10/18 06/10/18 06/10/18 04:20 04:20 04:20 WBC RBC Hgb Hct MCV MCH MCHC RDW RDW Differential Plt Count MPV Immature Gran % (Auto) Neut % (Auto) Lymph % (Auto) Liberty % (Auto) Eos % (Auto) Baso % (Auto) Absolute Neuts (auto) Absolute Lymphs (auto) Total Counted Nucleated RBC % Differential Comment Hypochromasia Microcytosis Absolute Retic Sodium Potassium Chloride Carbon Dioxide Anion Gap BUN Creatinine Estim Creat Clear Calc Est GFR (MDRD) Af Amer Est GFR (MDRD) Non-Af BUN/Creatinine Ratio Glucose Hemoglobin A1c 6.3 Calcium Iron 55 TIBC 227 L Iron Saturation 24.2 Ferritin 577 H Vitamin B12 939 H Folate 19.30 Hep Bs Antigen Hep Bs Antibody Hep B Core Total Ab POC Glucose 06/10/18 06/10/18 06/10/18 06:00 07:42 09:40 WBC RBC Hgb Hct MCV MCH MCHC RDW RDW Differential Plt Count MPV Immature Gran % (Auto) Neut % (Auto) Lymph % (Auto) Liberty % (Auto) Eos % (Auto) Baso % (Auto) Absolute Neuts (auto) Absolute Lymphs (auto) Total Counted Nucleated RBC % Differential Comment Hypochromasia Microcytosis Absolute Retic Sodium Potassium Chloride Carbon Dioxide Anion Gap BUN Creatinine Estim Creat Clear Calc Est GFR (MDRD) Af Amer Est GFR (MDRD) Non-Af BUN/Creatinine Ratio Glucose Hemoglobin A1c Calcium Iron TIBC Iron Saturation Ferritin Vitamin B12 Folate Hep Bs Antigen Hep Bs Antibody Hep B Core Total Ab POC Glucose 414 H 340 H 354 H 06/10/18 06/10/18 06/10/18 13:56 18:37 22:37 WBC RBC Hgb Hct MCV MCH MCHC RDW RDW Differential Plt Count MPV Immature Gran % (Auto) Neut % (Auto) Lymph % (Auto) Liberty % (Auto) Eos % (Auto) Baso % (Auto) Absolute Neuts (auto) Absolute Lymphs (auto) Total Counted Nucleated RBC % Differential Comment Hypochromasia Microcytosis Absolute Retic Sodium Potassium Chloride Carbon Dioxide Anion Gap BUN Creatinine Estim Creat Clear Calc Est GFR (MDRD) Af Amer Est GFR (MDRD) Non-Af BUN/Creatinine Ratio Glucose Hemoglobin A1c Calcium Iron TIBC Iron Saturation Ferritin Vitamin B12 Folate Hep Bs Antigen Hep Bs Antibody Hep B Core Total Ab POC Glucose 414 H 249 H 298 H 06/11/18 06/11/18 06/11/18 02:15 04:05 04:05 WBC 13.5 H RBC 2.67 L Hgb 8.4 L Hct 26.5 L MCV 99.3 H MCH 31.5 MCHC 31.7 L RDW 14.6 RDW Differential 51.9 H Plt Count 272 MPV 9.4 Immature Gran % (Auto) 1.700 H Neut % (Auto) 73.5 H Lymph % (Auto) 18.4 L Liberty % (Auto) 5.8 Eos % (Auto) 0.5 Baso % (Auto) 0.1 Absolute Neuts (auto) 9.9 H Absolute Lymphs (auto) 2.49 Total Counted Not Reportable Nucleated RBC % 0.5 Differential Comment Hypochromasia Microcytosis Absolute Retic 0.06 Sodium 140 Potassium 4.3 Chloride 100 Carbon Dioxide 31.0 Anion Gap 9 BUN 68 H Creatinine 2.29 H Estim Creat Clear Calc 22.33 Est GFR (MDRD) Af Amer 28 L Est GFR (MDRD) Non-Af 23 L BUN/Creatinine Ratio 29.7 H Glucose 270 H Hemoglobin A1c Calcium 8.2 L Iron TIBC Iron Saturation Ferritin Vitamin B12 Folate Hep Bs Antigen Hep Bs Antibody Hep B Core Total Ab POC Glucose 277 H Microbiology 06/06/18 14:40 Sputum, Induced/Lukens Gram Stain - Final 06/06/18 14:40 Sputum, Induced/Lukens Respiratory Culture - Preliminary Gram negative kaylin Alpha Hemolytic Streptococcus 06/08/18 07:24 Sputum, Tracheal Aspirate Gram Stain - Final 06/08/18 07:24 Sputum, Tracheal Aspirate Respiratory Culture - Final Coag Negative Staph 06/10/18 06:50 Stool Stool Occult Blood (EVA) - Final Occult Blood Positive 06/04/18 15:15 Blood Culture (Wb) - Right Hand Blood Culture - Final No growth in 5 days. 06/04/18 12:03 Blood Culture (Wb) - Anticubital Left Blood Culture - Final No growth in 5 days. Clinical Impression(s) from Imaging Studies Chest X-Ray 06/04/18 12:20 IMPRESSION: Pulmonary edema or bilateral pneumonia. Electronically Signed: Karena Hawk, at 12:38 EDT Tel , Service support , Chest CT 06/04/18 13:06 IMPRESSION: Chronic interstitial lung disease with superimposed bilateral patchy pneumonia. Electronically Signed: Karena Hawk, at 14:44 EDT Tel , Service support , Chest X-Ray 06/06/18 08:50 IMPRESSION: Increased diffuse bilateral pulmonary interstitial lung markings and alveolar disease, this may represent increasing pulmonary edema and/or worsening pneumonia. There is suggestion of small bilateral pleural effusions. Electronically Signed: Carmen Savmalou, at 9:34 EDT Tel , Service support , Chest CTA 06/06/18 10:50 IMPRESSION: No demonstrated pulmonary embolism or arterial dissection. Worsening bilateral pneumonia or ARDS. Electronically Signed: Karena Hawk, at 12:33 EDT Tel , Service support , Chest X-Ray 06/06/18 14:26 IMPRESSION: ET tube and enteric tube as above. Stable diffuse patchy airspace disease bilaterally Electronically Signed: Julito Staton DO at 16:32 EDT Tel , Service support , Chest X-Ray 06/07/18 12:49 IMPRESSION: Pulmonary edema. Electronically Signed: Karena Hawk, at 13:53 EDT Tel , Service support , Medical Necessity - Tobacco Use Smoking Status: Former smoker Tobacco Use: Cigarettes Assessment/Plan All Active Problems Severe sepsis (Acute) Hyperkalemia (Acute) Metabolic acidosis (Acute) Tobacco use disorder (Resolved) Cocaine dependence, episodic (Resolved) RECOMMENDATIONS: 1. Continue to wean FiO2 and PEEP to maintain an oxygen saturation at or above 90%. 2. Continue hemodialysis support per nephrology recommendations. 3. Continue antibiotics. 4. Hold tube feeds for now. Attempt to restart later today. 5. Continue Lantus and sliding scale insulin regimen. 6. Continue bronchodilators and steroids. 7. Continue appropriate ICU prophylaxis 8. Resume sedation and place patient back on assist control mode of mechanical ventilation. IMPRESSIONS: 1. Acute on chronic combined respiratory failure secondary to possible ARDS The patient has reported underlying IPF, for which she is currently prescribed Ofev by Dr. Olivia at [facility]. Therefore, the patient's decompensated respiratory status is likely multifactorial in etiology, with interstitial lung disease, pneumonia and a component of heart failure contributing. We will plan to continue current supportive measures with invasive mechanical ventilation. Wean FiO2 and PEEP to maintain an oxygen saturation at or above 90%, if feasible. Continue volume optimization with hemodialysis per nephrology recommendations. Continue antibiotics as ordered. 2. Heart failure with preserved ejection fraction/pulmonary hypertension As noted above, will continue attempts at volume optimization with hemodialysis per nephrology recommendations. Underlying pulmonary hypertension is likely related to the patient's interstitial lung disease. 3. Uncontrolled diabetes mellitus Continue Lantus and sliding scale and sling coverage. 4. Acute on chronic kidney disease Nephrology is currently following. Etiology for kidney disease is felt to be secondary to ATN. Continue hemodialysis support as indicated. 5. Morbid obesity/CKD stage III/hypertension/hyperlipidemia/depression/GERD/history of tobacco dependency Complicates care, management, recovery and prognosis. Continue to hold nephrotoxic medications. Physical therapy evaluation, once medically stabilized. TIME: 40 minutes of critical care time, independent of procedures, was spent addressing the patient's acute on chronic combined respiratory failure, underlying interstitial lung disease, possible ARDS, heart failure with preserved ejection fraction, pulmonary hypertension, uncontrolled diabetes mellitus, review of all data and collaboration with the care team. ([id number]) Code Visit 9xxxx: [id number] Critical care first hour
[2018-06-11] MEDS: Ipratropium/Albuterol Sulfate 3 ML AMPUL.NEB INHALATION ×4 (06:30→18:47)
[2018-06-11] MEDS: CHLORHEXIDINE GLUC 2% CLOTH 1 EACH TOWELETTE TOPICAL (06:34)
[2018-06-11] MEDS: Ondansetron 4 MG/2 ML Vial IV (06:34)
[2018-06-11] MEDS: Enoxaparin 30 MG/0.3 ML Syringe SC (06:34)
[2018-06-11 06:50] LABS: Bedside Glucose 220 mg/dL (70-110)
--- NOTE | 2018-06-11 06:56 | NURSING ---
This RN at bedside when pt began to have tube feed-like emesis around ET tube. Pt suctioned, PRN zofran given and MD notified, will hold TF until after rounds per MD's request. Pt continues to tolerate SBT. Will continue to monitor.
--- NOTE | 2018-06-11 08:08 | NURSING ---
While assessing pt off sedation,pt c/o nausea and quickly began to have a small emesis of enteral feeding and bile. Pt connected to low cont sxn via GT and oral care given. Pt went into bronchospasms, resp notified of orders to restart AC vent.
--- NOTE | 2018-06-11 08:15 | EKG12_ITS ---
Test Reason : EKG CHANGE Blood Pressure : / mmHG Vent. Rate : 083 BPM Atrial Rate : 083 BPM P-R Int : 172 ms QRS Dur : 114 ms QT Int : 374 ms P-R-T Axes : 024 015 139 degrees QTc Int : 439 ms Normal sinus rhythm Left ventricular hypertrophy with repolarization abnormality Abnormal ECG When compared with ECG of 01-JUL-1996 18:17, MANUAL COMPARISON REQUIRED, DATA IS UNCONFIRMED Confirmed by KIRK FALK, JEREMY ([id number]), publishing editor SHERRY ROGER ([id number]) on 06/24/2018 1:37:36 PM Referred By: RIANNA Confirmed By:JEREMY BRADLEY MD
--- NOTE | 2018-06-11 08:15 | EKG12_ITS ---
Test Reason : EKG CHANGE Blood Pressure : / mmHG Vent. Rate : 071 BPM Atrial Rate : 120 BPM P-R Int : 000 ms QRS Dur : 112 ms QT Int : 422 ms P-R-T Axes : 037 011 104 degrees QTc Int : 458 ms Sinus tachycardia with 2nd degree A-V block (Mobitz I) Left ventricular hypertrophy with repolarization abnormality Abnormal ECG Right bundle branch block When compared with ECG of 28-JUN-1996 14:20, MANUAL COMPARISON REQUIRED, DATA IS UNCONFIRMED Reconfirmed by KIRK FALK, JEREMY ([id number]), content editor NIGHAT NICHOLSON ([id number]) on 06/24/2018 4:40:40 PM Referred By: RIANNA Confirmed By:JEREMY BRADLEY MD
--- NOTE | 2018-06-11 08:19 | RAD_ITS ---
STUDY: X-RAY - ABDOMEN/PELVIS REASON FOR EXAM: Female, 63 years old. Vomiting. TECHNIQUE: Two AP supine views of the abdomen and pelvis. COMPARISON: CT of the abdomen and pelvis, February 05, 2015. FINDINGS: There is an NG tube extending into the left upper quadrant. Question mild atelectatic changes at the lung bases. The heart appears enlarged. There is limited visualization of the intra-abdominal contents due to patient habitus. Air is seen throughout a nondistended colon. There is a focal loop of colon to the left of the pelvis suggesting possible hernia. There is no small bowel dilatation. There is no demonstrated free abdominal air. The visualized liver, spleen and kidneys are grossly normal in size and morphology. Tubal ligation clips are seen in the pelvis No obvious abnormality of the visualized bony structures. RAD/Abdomen Single View (Portable) IMPRESSION: 1. Moderately limited study due to poor penetration secondary to patient habitus. 2. No evidence of obstruction. There is a loop of colon to the left of the pelvis. Question hernia versus displacement of abdominal contents left of the pelvis. Electronically Signed: George Lugo DO at 11:11 EDT Tel [phone], Service support ,
--- NOTE | 2018-06-11 08:24 | NURSING ---
Patient with HR into 140s appeared to be A fib on the monitor, by time EKG leads were applied patient HR down to the 40s with what appeared to be a junctional rhythm, EKG showed Mobitz II then another EKG a couple minutes later showed that patient was back in NSR. Dr. Bello at bedside for this episode. Ordered stat troponin and interpreted EKGs.
[2018-06-11 08:30] LABS: Bedside Glucose 177 mg/dL (70-110)
--- NOTE | 2018-06-11 08:45 | CASEMGMT ---
RN CM NOTE: Participated in interdisciplinary rounds. Pt intubated. Boyfriend/HCPOA not present at this time. RN CM will continue to follow pt's progress and assess for discharge planning needs. Edyta ROBERTS RN CM
[2018-06-11] MEDS: fentaNYL drip 100 ML 5 MCG IV ×3 (09:16→21:53)
[2018-06-11] MEDS: Glycerin/Hypromellose/PEG400 15 ml Bottle 1 DRP RIGHT EYE ×2 (09:36→21:53)
[2018-06-11] MEDS: Citalopram 40 MG TABLET GT (09:39)
[2018-06-11] MEDS: Chlorhexidine 15 ML PO ×2 (09:39→21:55)
[2018-06-11] MEDS: Gabapentin 300 MG Capsule GT ×2 (09:40→21:55)
[2018-06-11] MEDS: predniSONE 20 MG Tablet 40 MG GT (09:40)
[2018-06-11] MEDS: prednisoLONE eye drops (5 mL) 1 DROP OPTH.BTL 2 DRP LEFT EYE (09:41)
[2018-06-11] MEDS: Senna Tablet 2 TABLET GT (09:42)
[2018-06-11] MEDS: 0.9% NaCl Peripheral Flush Adult/Peds IV ×2 (09:57→13:57)
[2018-06-11 10:25] LABS: Bedside Glucose 151 mg/dL (70-110)
--- NOTE | 2018-06-11 13:37 | PN_ITS ---
Patient Problems: Active and Suspected Problems Severe sepsis (Acute) Hyperkalemia (Acute) Metabolic acidosis (Acute) Subjective: Patient with no acute events overnight and had appeared to be clinically improving, tolerated spontaneous breathing trial well however during this this morning patient had episode of apparent complaint of nausea with 2 small bouts of emesis and following this sudden onset tachycardia, appearance atrial fibrillation with then bradycardia and resumption of prior junctional rhythm with eventual transition back to normal sinus rhythm. Cardiology was updated. Cardiac enzymes were obtained per relationship associate secondary to these findings and cardiac enzyme trend noted at 0.496--> 0.527. Patient status post dialysis with removal of 1.5 L of fluid day prior with discussion with nephrology today with plan to continue HD today. Patient currently not alert, more sedated, increased respiratory vent settings secondary to recent events. Patient unable to give ROS secondary to sedation. Objective: Physical Examination: General: currently sedated, not alert, not able to answer orientation questions, not following commands, laying in the ICU bed in no apparent distress, intubated. Skin: normal color, turgor, no icterus, cyanosis. HEENT: AT/NC, EOM unable to be assessed as sedated, L eye chronic blindness, distortion s/p retinal detachment, R pupil appropriate RRLA, dry MM, intubated. Lungs: Diminished breath sounds, greater bases, intubated, symmetric rise, no rales, ronchi or wheezing. Heart: Regular rate and rhythm; no gallop, rub audible. Abdomen: soft, morbidly obese, NTTP, ND, normal BS. Extremities: no cyanosis, clubbing, or edema. Neurological: currently sedated, not alert, not able to answer orientation questions, not following commands, laying in the ICU bed in no apparent distress, intubated; cognitive function unable to be assessed, sedation restarte d, intubated, unable to assess CN, not responding to stimuli. Psychiatric: affect appears flat, sedated, no acute evidence of depressive or anxiety feelings. Vitals/I&O's: Vital Signs Temp Pulse Resp BP Pulse Ox 97.3 F L 63 16 92/55 L 96 06/11/18 08:00 06/11/18 12:00 06/11/18 11:00 06/11/18 11:00 06/11/18 11:00 Oxygen Flow Rate (L/min) 15 Oxygen Delivery Method Mechanical Ventilator Weight: 287 lb 11.252 oz Body Mass Index (BMI) 51.5 Finger Stick Blood Glucose 383 Intake and Output for Last 24 Hours 06/09/18 06/10/18 06/11/18 23:59 23:59 23:59 Intake Total 3262.0 / 3262.0 2739.6 / 2739.6 1478 / 1478 Output Total 1750 / 1750 3525 / 3525 725 / 725 Balance 1512.0 / 1512.0 -785.4 / -785.4 753 / 753 Microbiology Past 72 Hours 06/06/18 14:40 Sputum, Induced/Lukens Gram Stain - Final 06/06/18 14:40 Sputum, Induced/Lukens Respiratory Culture - Final Sphingomonas paucimobilis 06/08/18 07:24 Sputum, Tracheal Aspirate Gram Stain - Final 06/08/18 07:24 Sputum, Tracheal Aspirate Respiratory Culture - Final Coag Negative Staph 06/10/18 06:50 Stool Stool Occult Blood (EVA) - Final Occult Blood Positive 06/04/18 15:15 Blood Culture (Wb) - Right Hand Blood Culture - Final No growth in 5 days. 06/04/18 12:03 Blood Culture (Wb) - Anticubital Left Blood Culture - Final No growth in 5 days. Laboratory Results 06/10/18 13:56: POC Glucose 414 H 06/10/18 18:37: POC Glucose 249 H 06/10/18 22:37: POC Glucose 298 H 06/11/18 02:15: POC Glucose 277 H 06/11/18 04:05: WBC 13.5 H, RBC 2.67 L, Hgb 8.4 L, Hct 26.5 L, MCV 99.3 H, MCH 31.5, MCHC 31.7 L, RDW 14.6, RDW Differential 51.9 H, Plt Count 272, MPV 9.4, Immature Gran % (Auto) 1.700 H, Neut % (Auto) 73.5 H, Lymph % (Auto) 18.4 L, [place] % (Auto) 5.8, Eos % (Auto) 0.5, Baso % (Auto) 0.1, Absolute Neuts (auto) 9.9 H, Absolute Lymphs (auto) 2.49, Total Counted Not Reportable, Nucleated RBC % 0.5, Absolute Retic 0.06 06/11/18 04:05: Sodium 140, Potassium 4.3, Chloride 100, Carbon Dioxide 31.0, Anion Gap 9, BUN 68 H, Creatinine 2.29 H, Estim Creat Clear Calc 22.33, Est GFR (MDRD) Af Amer 28 L, Est GFR (MDRD) Non-Af 23 L, BUN/Creatinine Ratio 29.7 H, Glucose 270 H, Calcium 8.2 L 06/11/18 06:40: POC Glucose 220 H 06/11/18 08:15: Troponin I 0.496 H 06/11/18 08:25: POC Glucose 177 H 06/11/18 09:52: POC Glucose 151 H 06/11/18 12:18: Troponin I 0.527 H Current Medications Acetaminophen (Tylenol Liquid) 650 mg GT Q6H PRN PRN PRN Reason: fever over 100.4 or pain Albuterol Sulfate (Ventolin Aerosols) 2.5 mg INHALATION Q2H PRN PRN PRN Reason: SHORTNESS OF BREATH Last Admin: 06/06/18 05:07 Dose: 2.5 mg Albuterol/Ipratropium (Duoneb) 3 ml INHALATION Q4HWA.RT [facility] Last Admin: 06/11/18 10:52 Dose: 3 ml Atorvastatin Calcium (Lipitor) 40 mg GT QHS [facility] Last Admin: 06/10/18 22:40 Dose: 40 mg Atropine Sulfate () 0.5 mg IV X1 PRN PRN Reason: HR < 35 sustained, MAP < 60 Chlorhexidine Gluconate () 15 ml PO BID [facility] Last Admin: 06/11/18 09:39 Dose: 15 ml Chlorhexidine Gluconate () 1 each TOPICAL DAILY [facility] Last Admin: 06/11/18 06:34 Dose: 1 each Citalopram Hydrobromide (Celexa) 40 mg GT DAILY [facility] Last Admin: 06/11/18 09:39 Dose: 40 mg Cyclopentolate HCl (Cyclogyl) 1 drop LEFT EYE QHS [facility] Last Admin: 06/10/18 22:44 Dose: 1 drop Dextrose (D50w Syringe) 0 gm IV X1 PRN; Protocol PRN Reason: Hypoglycemia Enoxaparin Sodium (Lovenox) 30 mg SC DAILY@0600 [facility] Last Admin: 06/11/18 06:34 Dose: 30 mg Gabapentin (Neurontin) 300 mg GT BID [facility] Last Admin: 06/11/18 09:40 Dose: 300 mg Glucagon () 1 mg IM .X1 PRN PRN Reason: Hypoglycemia Heparin Sodium (Porcine) () 2,500 units IV UD PRN PRN Reason: HEPARIN FLUSH Last Admin: 06/07/18 12:00 Dose: 2,500 units Ceftriaxone Sodium 2 gm/ (Sodium Chloride) 50 mls @ 100 mls/hr IV Q24 [facility] Last Admin: 06/11/18 09:56 Dose: 100 mls/hr Fentanyl () 100 mls @ 5 mls/hr IV .Q20H [facility] Last Admin: 06/11/18 09:16 Dose: 5 mls/hr Propofol (Diprivan) 1,000 mg in 100 mls @ 8.232 mls/hr CONT INF .Q12H [facility] Last Admin: 06/11/18 09:35 Dose: 8.232 mls/hr Enteral Nutritional Formula (Vital Af 1.2 Fransico Liquid) 1,000 mls @ 60 mls/hr GT .[id number] [facility] Last Admin: 06/11/18 02:17 Dose: Not Given Norepinephrine Bitartrate 8 mg (/ Dextrose) 258 mls @ 9.68 mls/hr IV .[id number] [facility] Last Admin: 06/10/18 23:24 Dose: Not Given Pantoprazole Sodium 40 mg/ (Sodium Chloride) 110 mls @ 330 mls/hr IV Q24 [facility] Last Admin: 06/11/18 09:56 Dose: 330 mls/hr Insulin Glargine (Lantus (Bkc)) 40 units SC BID [facility] Last Admin: 06/11/18 09:55 Dose: 40 u Insulin Human Lispro (Humalog Kwikpen (Bkc)) 0 unit SQ Q4 [facility]; Protocol Last Admin: 06/11/18 09:53 Dose: 3 u Ondansetron HCl (Zofran) 4 mg IV Q6H PRN PRN PRN Reason: NAUSEA/VOMITING Last Admin: 06/11/18 06:34 Dose: 4 mg Polyethylene Glycol (Miralax) 17 gm GT DAILY PRN PRN Reason: Constipation Last Admin: 06/08/18 23:53 Dose: 17 gm Prednisolone Acetate (Pred Forte Eye Drops (5 Ml)) 2 drop LEFT EYE DAILY [facility] Last Admin: 06/11/18 09:41 Dose: 2 drop Prednisone () 40 mg GT DAILY [facility] Last Admin: 06/11/18 09:40 Dose: 40 mg Senna (Senokot) 2 tablet GT DAILY [facility] Last Admin: 06/11/18 09:42 Dose: 2 tablet Sodium Chloride () 5 - 15 ml IV UD PRN PRN Reason: SALINE FLUSH Last Admin: 06/11/18 09:57 Dose: 5 ml Sodium Chloride () 10 ml IV UD PRN PRN Reason: Dialysis Catheter Flush Sodium Chloride () 10 - 40 ml IV UD PRN PRN Reason: MULTILUMEN/HICMAN CATH FLUSH Last Admin: 06/11/18 09:58 Dose: 20 ml Medical Necessity - Tobacco Use Smoking Status: Former smoker Tobacco Use: Cigarettes Assessment/Plan All Active Problems Severe sepsis (Acute) Hyperkalemia (Acute) Metabolic acidosis (Acute) Tobacco use disorder (Resolved) Cocaine dependence, episodic (Resolved) The patient is a 63 y/o F w/ PMHx: PATRICK, Chronic Hypoxic Respiratory Failure, Pulmonary Fibrosis, Diabetes mellitus type II, CKD stage IV, Morbid Obesity, Tobacco use, Depression and Anxiety, History Cocaine Abuse, HTN, HLD who presents to the [facility] ED on 06/04/18 with history of worsening dyspnea x 2 weeks with intermittent productive cough, no fevers or chills but recent URI. (1) Acute Sepsis secondary to Acute on Chronic Hypoxic Respiratory Failure, Multifactorial, Possible ARDS, ? BL Pneumonia, ? Acute on Chronic COPD Exacerbation complicated by Pulmonary HTN: Intubated, sedated, MARIAN as noted concurrent, Acute CHF exacerbation concurrently, CXR w/ ? BL PNA also, continue ATC duonebs, PRN albuterol, maintained on IV solumedrol-->prednisone, maintained on IV Rocephin and completed Azithromycin, Coag neg staph and alpha hemolytic strep sputum cultures, negative respiratory panel, negative urine antigens. Bld cx x 2 obtained in the ED with NGTD. Continued HD per Nephrology direction w/ likely repeat HD session 06/12/18 per recent evaluation. (2) Acute on Chronic Diastolic CHF Exacerbation with ? Cor Pulmonale w/ Junctional Rhythm, Possible transient PAF with indeterminate cardiac enzymes: Cardiology consulted, junctional bradycardia felt likely secondary to hyperkalemia, following HD normalized to SR, recommendation to avoid K > 4.5, discontinuation of patient losartan, unresponsive to diuretic therapy, HD started on 06/07/18, maintained on statin, not on ASA nor BB, secondary to worsening anemia and low normal BPs. Planned likely 06/12/18 repeat HD. Episode 06/11/18 AM as noted emesis x 2, transient appearance atrial fibrillation, return to bradycardia then junctional. Cardiology updated. Cardiac enzymes obtained w/ 0.496-->0.527. Recent 06/04/18 ECHO w/ EF 65%, moderately dilated RV, moderately enlarged LA, moderately enlarged RA, trivial MDI, RVSP 56 mmHg, moderate pulmonary hypertension, normal diastology for age. Cardiology aware and updated about arrhythmia following emesis about x2. (3) Acute Oliguric Renal Failure on CKD stage IV: Suspected secondary to acute sepsis induced ATN. Admission BUN/Cr 34/2.11, last noted 02/05/15 Cr 2.05, 06/11/18 BUN/Cr 68/2.29, HD initiated 06/07/18, R IJ access in place, 06/07/18 removal 1.7 L. UOP improving. Nephrology following. Possible 06/12/18 HD pending re-evaluation. (4) Hyperkalemia: Following admission K 5.8, improved following interventions, associated w/ MARIAN, 06/10/18 K 5.2-->06/11/18 K 4.3, continue to trend. (5) Chronic Anemia, Unclear Etiology: Hgb 7.4, admission Hgb 9.8, trending down since admission, acute on chronic renal presentation, 06/11/18 Hgb 8.4. Studies w/ Fe 55, TIBC 227, Fe Sat 24.2, Ferritin 577, Vitamin B12 939, Folate 19.30, + stool guiac. Consistent with AOCD. Will continue to trend HH. PPI. May need to consider endoscopy evaluation. (6) Diabetes mellitus type II, Uncontrolled: Intermittent hyperglycemia during admission with alteration of basal insulin, maintained currently on tube feeds, hemoglobin A1c 6.3%, accu checks w/ ISS q 6 hours while TF status. (7) Morbid Obesity: Weight loss and lifestyle changes will be encouraged, nutrition consulted. (8) Anxiety and Depression: Maintained on home citalopram regimen. (9) History of Tobacco use: Encourage continued cessation. (10) Hypertension: BP low normal, held. (11) Hyperlipidemia: Continued on home statin. (12) GERD: PPI. (13) PATRICK: Currently intubated, sedated. (14) DVT Prophylaxis: SCDs, renally dosed lovenox. Code Visit Inpatient E&M: 16610 Subs Hosp L3
[2018-06-11 14:05] LABS: Bedside Glucose 123 mg/dL (70-110)
[2018-06-11] MEDS: Vital AF 1.2 Cal Liquid 1,000 ML 30 ML GT (14:11)
--- NOTE | 2018-06-11 14:12 | PCM.PN.REN ---
Patient Problems: Active and Suspected Problems Severe sepsis (Acute) Hyperkalemia (Acute) Metabolic acidosis (Acute) Subjective: no new events failed SBT - Physical Exam HEENT: Atraumatic, PERRLA, EOMI, Normocephalic Neck: Supple, No JVD, Negative Carotid Bruits Lungs: Clear to auscultation, Normal air movement Cardiovascular: Regular rate, No murmurs Abdomen: Bowel Sounds Present, Soft, Non Tender Extremities: No edema, Capillary Refill Less than 3 Seconds Skin: No rashes, No breakdown Musculoskeletal: No Tenderness to Palpation of Joints or Extremities Vital Signs Temp Pulse Resp BP Pulse Ox 97.3 F L 63 16 92/55 L 96 06/11/18 08:00 06/11/18 12:00 06/11/18 11:00 06/11/18 11:00 06/11/18 11:00 Oxygen Flow Rate (L/min) 15 Oxygen Delivery Method Mechanical Ventilator Weight: 130.5 kg Body Mass Index (BMI) 51.5 Finger Stick Blood Glucose 383 Intake and Output for Last 24 Hours 06/09/18 06/10/18 06/11/18 23:59 23:59 23:59 Intake Total 3262.0 / 3262.0 2739.6 / 2739.6 1478 / 1478 Output Total 1750 / 1750 3525 / 3525 725 / 725 Balance 1512.0 / 1512.0 -785.4 / -785.4 753 / 753 Microbiology Past 72 Hours 06/06/18 14:40 Gram Stain - Final Sputum, Induced/Lukens Respiratory Culture - Final Sphingomonas paucimobilis 06/08/18 07:24 Gram Stain - Final Sputum, Tracheal Aspirate Respiratory Culture - Final Coag Negative Staph 06/10/18 06:50 Stool Occult Blood (EVA) - Final Stool Occult Blood Positive 06/04/18 15:15 Blood Culture - Final Blood Culture (Wb) - Right Hand No growth in 5 days. 06/04/18 12:03 Blood Culture - Final Blood Culture (Wb) - Anticubital Left No growth in 5 days. Laboratory Tests Past 24 Hrs 06/11/18 06/11/18 06/11/18 04:05 04:05 08:15 WBC 13.5 H RBC 2.67 L Hgb 8.4 L Hct 26.5 L MCV 99.3 H MCH 31.5 MCHC 31.7 L RDW 14.6 RDW Differential 51.9 H Plt Count 272 MPV 9.4 Immature Gran % (Auto) 1.700 H Neut % (Auto) 73.5 H Lymph % (Auto) 18.4 L [place] % (Auto) 5.8 Eos % (Auto) 0.5 Baso % (Auto) 0.1 Absolute Neuts (auto) 9.9 H Absolute Lymphs (auto) 2.49 Total Counted Not Reportable Nucleated RBC % 0.5 Absolute Retic 0.06 Sodium 140 Potassium 4.3 Chloride 100 Carbon Dioxide 31.0 Anion Gap 9 BUN 68 H Creatinine 2.29 H Estim Creat Clear Calc 22.33 Est GFR (MDRD) Af Amer 28 L Est GFR (MDRD) Non-Af 23 L BUN/Creatinine Ratio 29.7 H Glucose 270 H Calcium 8.2 L Troponin I 0.496 H 06/11/18 12:18 WBC RBC Hgb Hct MCV MCH MCHC RDW RDW Differential Plt Count MPV Immature Gran % (Auto) Neut % (Auto) Lymph % (Auto) [place] % (Auto) Eos % (Auto) Baso % (Auto) Absolute Neuts (auto) Absolute Lymphs (auto) Total Counted Nucleated RBC % Absolute Retic Sodium Potassium Chloride Carbon Dioxide Anion Gap BUN Creatinine Estim Creat Clear Calc Est GFR (MDRD) Af Amer Est GFR (MDRD) Non-Af BUN/Creatinine Ratio Glucose Calcium Troponin I 0.527 H POC Glucose 06/11/18 06/11/18 06/11/18 13:54 09:52 08:25 POC Glucose 123 H 151 H 177 H 06/11/18 06/11/18 06/10/18 06:40 02:15 22:37 POC Glucose 220 H 277 H 298 H 06/10/18 18:37 POC Glucose 249 H Medical Necessity - Tobacco Use Smoking Status: Former smoker Tobacco Use: Cigarettes Assessment/Plan All Active Problems Severe sepsis (Acute) Hyperkalemia (Acute) Metabolic acidosis (Acute) Tobacco use disorder (Resolved) Cocaine dependence, episodic (Resolved) 1-acute kidney injury on chronic kidney disease. Patient has chronic kidney disease stage IV. MARIAN is most probably from sepsis induced ATN. HD started last . Right IJ temporary hemodialysis access is in place. urine output is better. creatinine is somewhat stable HD likely tomorrow 2-hyperkalemia. better 3-Metabolic acidosis: better 4-acute respiratory failure due to ARDS/pneumonia. CXR shows bilateral interstitial markings. edema vs ARDS vs preexisting ILD or a combination of all continue fluid removal as tolerated
--- NOTE | 2018-06-11 14:17 | CHAPLAIN ---
Type of Pastoral Visit ___ Initial Visit _x__ Follow-up Visit ___ On-call Visit ___ General Patient Visit ___ Spiritual Assessment ___ Family Conference ___ Bereavement ___ Rapid Response ___ Code Blue ___ Other (describe below) Pastoral Care Referral From ___ Patient _x__ Family ___ Nurse ___ Physician ___ Seconds Grader ___ Plate Filler ___ Other (describe below) Sacrament/Intervention _x__ Active listening ___ Anointing ___ Gnosticist ___ Bereavement ___ Communion ___ Renetta exploration ___ ___ Life review _x__ Prayer ___ Reconciliation ___ Sacrament of Sick _x__ Supportive presence ___ Wedding ___ Other (describe below) Pastoral Comments patient is sleeping but conversation with SO to offer continual support; SO has been with pt daily and expresses lack of sleep is beginning to wear him down; SO is encouraged about some progress with patient; SO said local saw repairer has been in communication; SO plans to the patient this weekend if all goes well
[2018-06-11 17:56] LABS: Bedside Glucose 196 mg/dL (70-110)
--- NOTE | 2018-06-11 18:14 | NURSING ---
reviewed Frida Barajas RN charting and agree with assessment findings
--- NOTE | 2018-06-11 20:33 | EKG12_ITS ---
Test Reason : ALEXX Blood Pressure : / mmHG Vent. Rate : 052 BPM Atrial Rate : 052 BPM P-R Int : 132 ms QRS Dur : 114 ms QT Int : 496 ms P-R-T Axes : 000 028 045 degrees QTc Int : 461 ms Sinus bradycardia with Premature atrial complexes Incomplete right bundle branch block Borderline ECG Confirmed by VINNIE FALK, RICH ([id number]), managing editor SHERRY ROGER ([id number]) on 06/24/2018 12:24:08 PM Referred By: DONAVAN Confirmed By:RICH BIRMINGHAM MD
[2018-06-11] MEDS: Cyclopentolate 1% 2 ML Bottle 1 DRP LEFT EYE (21:53)
[2018-06-11] MEDS: Atorvastatin Calcium 40 MG Tablet GT (21:54)
[2018-06-11 22:10] LABS: Bedside Glucose 220 mg/dL (70-110)
[2018-06-12] VITALS (37 sets, daily range): BP systolic 117–166; BP diastolic 57–101; PULSE 60–93; RESP 15–21; TEMP 36.2–36.6; O2SAT 88–100
[2018-06-12] MEDS: Insulin Lispro 100 UNIT/ML INSULN.PEN SQ ×4 (02:19→21:42)
[2018-06-12] MEDS: Propofol 10MG/Ml 1,000 MG/100 ML Bottle 8.232 MG CONT INF (02:20)
[2018-06-12 03:01] LABS: Bedside Glucose 169 mg/dL (70-110)
[2018-06-12 04:19] LABS: Absolute Lymphocyte Count 1.59 X10^3/ul (0.83-4.51); Absolute Neutrophil Count 8.3 X10^3/uL (2.0-7.7); Basophil# 0.02 X10^3/uL; Basophil% 0.2 % (0-1); Eosinophil# 0.14 X10^3/uL; Eosinophils% 1.3 % (0-5); Hematocrit 27.5 % (37-47); Hemoglobin 8.1 g/dl (12.0-15.0); Lymphocyte # 1.59 X10^3/ul (4.0); Lymphocyte % 14.4 % (19-41); Mean Corp Hgb Conc 29.5 g/gl (32-36); Mean Corpuscular Hgb 30.3 pg (27.0-32.0); Mean Platelet Vol. 9.4 fl (6.2-12.0); Monocyte% 7.3 % (0-10); Neutrophil # 8.25 X10^3/uL (2.7-7.7); Neutrophil % 74.8 % (47-70); Platelet Count 262 K/mm3 (150-450); RBC Distribution Width CV 14.2 % (11.6-14.6); RBC Distribution Width SD 50.7 fl (35.1-43.9); Red Blood Count 2.67 M/mm3 (4.2-5.4)
[2018-06-12 04:23] LABS: POSITIVE COUNT YES; POSITIVE DIFFERENTIAL NO; POSITIVE MORPHOLOGY YES
[2018-06-12 04:29] LABS: BUN 85 mg/dL (7-18); Creatinine, Serum 2.35 mg/dL (0.55-1.02); Glucose 192 mg/dL (74-106)
[2018-06-12 04:30] LABS: Anion Gap 10 (5-15); BUN/Creat Ratio 36.2 RATIO (10-20); Calcium,Total 8.5 mg/dL (8.5-10.1); Chloride 103 mmol/L (98-107); EST Glomerular Filtration Rate 22 mL/min (>60); Est Glom Filt Rate - Afr Amer 27 mL/min (>60); Estimated Creatinine Clearance 21.76 ml/min; Potassium 4.5 mmol/L (3.5-5.1); Sodium Level 143 mmol/L (136-145)
[2018-06-12] MEDS: Enoxaparin 30 MG/0.3 ML Syringe SC (05:58)
[2018-06-12] MEDS: CHLORHEXIDINE GLUC 2% CLOTH 1 EACH TOWELETTE TOPICAL (05:58)
--- NOTE | 2018-06-12 06:35 | PN_ITS ---
Patient Problems: Active and Suspected Problems Severe sepsis (Acute) Hyperkalemia (Acute) Metabolic acidosis (Acute) Subjective: Patient approximately 8 PM the evening prior had similar event however this was not with an emesis bout but upon turning, onset tachycardia, appearance atrial fibrillation, return to junctional and eventual sinus rhythm. Cardiology was updated and requested continued medical management. Discussed patient this a.m. with nephrology and with pulmonary with planned dialysis and possible extubation following. This morning patient does complain of a headache but otherwise no acute complaints. She is tolerating a spontaneous breathing trial. Patient notes some nausea and has recently received antiemetic. Patient denies fevers, chills, recurrent emesis, abdominal pain, chest pain or dyspnea. Objective: Physical Examination: General: awake, alert, oriented x 3 to head nodding, following all commands, cooperative, seated upright in the ICU bed in no apparent distress, intubated, currently tolerating spontaneous breathing trial without issue, noting she currently has a headache but no other acute complaints aside nausea with recent antiemetic administered. Skin: normal color, turgor, no icterus, cyanosis. HEENT: AT/NC, EOM intact, L eye chronic blindness, distortion s/p retinal detachment, R pupil appropriate RRLA, mildly dry MM, intubated. Lungs: Diminished breath sounds, greater bases, intubated, symmetric rise, no rales, ronchi or wheezing. Heart: Regular rate and rhythm; no gallop, rub audible. Abdomen: soft, morbidly obese, NTTP, ND, normal BS. Extremities: no cyanosis, clubbing, or edema. Neurological: patient awake, alert, oriented as noted; cognitive function improved, nearing baseline intact, intubated still, mild sedation; pupils equally reactive to light and accomodation; cranial nerves II-XII grossly normal, moving all 4 extremities, strength severely globally decreased secondary to acute presentation, sedated, intubated. Psychiatric: affect appears fatigued, no acute evidence of depressive or anxiety feelings. Vitals/I&O's: Vital Signs Temp Pulse Resp BP Pulse Ox 97.5 F L 75 21 H 149/69 H 96 06/12/18 04:00 06/12/18 06:00 06/12/18 06:00 06/12/18 06:00 06/12/18 06:00 Oxygen Flow Rate (L/min) 15 Oxygen Delivery Method Mechanical Ventilator Weight: 279 lb 12.266 oz Body Mass Index (BMI) 51.5 Finger Stick Blood Glucose 383 Intake and Output for Last 24 Hours 06/10/18 06/11/18 06/12/18 23:59 23:59 23:59 Intake Total 2739.6 / 2739.6 2144 / 2144 995.9 / 995.9 Output Total 3525 / 3525 1075 / 1075 750 / 750 Balance -785.4 / -785.4 1069 / 1069 245.9 / 245.9 Microbiology Past 72 Hours 06/06/18 14:40 Sputum, Induced/Lukens Gram Stain - Final 06/06/18 14:40 Sputum, Induced/Lukens Respiratory Culture - Final Sphingomonas paucimobilis 06/08/18 07:24 Sputum, Tracheal Aspirate Gram Stain - Final 06/08/18 07:24 Sputum, Tracheal Aspirate Respiratory Culture - Final Coag Negative Staph 06/10/18 06:50 Stool Stool Occult Blood (EVA) - Final Occult Blood Positive 06/04/18 15:15 Blood Culture (Wb) - Right Hand Blood Culture - Final No growth in 5 days. 06/04/18 12:03 Blood Culture (Wb) - Anticubital Left Blood Culture - Final No growth in 5 days. Laboratory Results 06/11/18 06:40: POC Glucose 220 H 06/11/18 08:15: Troponin I 0.496 H 06/11/18 08:25: POC Glucose 177 H 06/11/18 09:52: POC Glucose 151 H 06/11/18 12:18: Troponin I 0.527 H 06/11/18 13:54: POC Glucose 123 H 06/11/18 17:39: POC Glucose 196 H 06/11/18 21:52: POC Glucose 220 H 06/12/18 02:18: POC Glucose 169 H 06/12/18 04:10: WBC 11.0, RBC 2.67 L, Hgb 8.1 L, Hct 27.5 L, MCV 103.0 H, MCH 30.3, MCHC 29.5 L, RDW 14.2, RDW Differential 50.7 H, Plt Count 262, MPV 9.4, Immature Gran % (Auto) 2.000 H, Neut % (Auto) 74.8 H, Lymph % (Auto) 14.4 L, [place] % (Auto) 7.3, Eos % (Auto) 1.3, Baso % (Auto) 0.2, Absolute Neuts (auto) 8.3 H, Absolute Lymphs (auto) 1.59, Total Counted Not Reportable, Diff Path Review July foll 06/12/18 04:10: Sodium 143, Potassium 4.5, Chloride 103, Carbon Dioxide 30.0, Anion Gap 10, BUN 85 H, Creatinine 2.35 H, Estim Creat Clear Calc 21.76, Est GFR (MDRD) Af Amer 27 L, Est GFR (MDRD) Non-Af 22 L, BUN/Creatinine Ratio 36.2 H, Glucose 192 H, Calcium 8.5 Current Medications Acetaminophen (Tylenol Liquid) 650 mg GT Q6H PRN PRN PRN Reason: fever over 100.4 or pain Albuterol Sulfate (Ventolin Aerosols) 2.5 mg INHALATION Q2H PRN PRN PRN Reason: SHORTNESS OF BREATH Last Admin: 06/06/18 05:07 Dose: 2.5 mg Albuterol/Ipratropium (Duoneb) 3 ml INHALATION Q4HWA.RT [facility] Last Admin: 06/11/18 18:47 Dose: 3 ml Atorvastatin Calcium (Lipitor) 40 mg GT QHS [facility] Last Admin: 06/11/18 21:54 Dose: 40 mg Atropine Sulfate () 0.5 mg IV X1 PRN PRN Reason: HR < 35 sustained, MAP < 60 Chlorhexidine Gluconate () 15 ml PO BID [facility] Last Admin: 06/11/18 21:55 Dose: 15 ml Chlorhexidine Gluconate () 1 each TOPICAL DAILY [facility] Last Admin: 06/12/18 05:58 Dose: 1 each Citalopram Hydrobromide (Celexa) 40 mg GT DAILY [facility] Last Admin: 06/11/18 09:39 Dose: 40 mg Cyclopentolate HCl (Cyclogyl) 1 drop LEFT EYE QHS [facility] Last Admin: 06/11/18 21:53 Dose: 1 drop Dextrose (D50w Syringe) 0 gm IV X1 PRN; Protocol PRN Reason: Hypoglycemia Enoxaparin Sodium (Lovenox) 30 mg SC DAILY@0600 [facility] Last Admin: 06/12/18 05:58 Dose: 30 mg Gabapentin (Neurontin) 300 mg GT BID [facility] Last Admin: 06/11/18 21:55 Dose: 300 mg Glucagon () 1 mg IM .X1 PRN PRN Reason: Hypoglycemia Heparin Sodium (Porcine) () 2,500 units IV UD PRN PRN Reason: HEPARIN FLUSH Last Admin: 06/07/18 12:00 Dose: 2,500 units Ceftriaxone Sodium 2 gm/ (Sodium Chloride) 50 mls @ 100 mls/hr IV Q24 [facility] Last Admin: 06/11/18 09:56 Dose: 100 mls/hr Fentanyl () 100 mls @ 5 mls/hr IV .Q20H [facility] Last Admin: 06/11/18 21:53 Dose: 5 mls/hr Propofol (Diprivan) 1,000 mg in 100 mls @ 8.232 mls/hr CONT INF .Q12H [facility] Last Admin: 06/12/18 02:20 Dose: 8.232 mls/hr Enteral Nutritional Formula (Vital Af 1.2 [place] Liquid) 1,000 mls @ 60 mls/hr GT .[id number] [facility] Last Admin: 06/11/18 14:11 Dose: 30 mls/hr Norepinephrine Bitartrate 8 mg (/ Dextrose) 258 mls @ 9.68 mls/hr IV .[id number] [facility] Last Admin: 06/12/18 02:20 Dose: Not Given Pantoprazole Sodium 40 mg/ (Sodium Chloride) 110 mls @ 330 mls/hr IV Q24 [facility] Last Admin: 06/11/18 09:56 Dose: 330 mls/hr Insulin Glargine (Lantus (Bkc)) 40 units SC BID [facility] Last Admin: 06/11/18 21:53 Dose: 40 u Insulin Human Lispro (Humalog Kwikpen (Bkc)) 0 unit SQ Q4 [facility]; Protocol Last Admin: 06/12/18 05:58 Dose: Not Given Ondansetron HCl (Zofran) 4 mg IV Q6H PRN PRN PRN Reason: NAUSEA/VOMITING Last Admin: 06/11/18 06:34 Dose: 4 mg Polyethylene Glycol (Miralax) 17 gm GT DAILY PRN PRN Reason: Constipation Last Admin: 06/08/18 23:53 Dose: 17 gm Prednisolone Acetate (Pred Forte Eye Drops (5 Ml)) 2 drop LEFT EYE DAILY DARIO Last Admin: 06/11/18 09:41 Dose: 2 drop Prednisone () 40 mg GT DAILY DARIO Last Admin: 06/11/18 09:40 Dose: 40 mg Senna (Senokot) 2 tablet GT DAILY DARIO Last Admin: 06/11/18 09:42 Dose: 2 tablet Sodium Chloride () 5 - 15 ml IV UD PRN PRN Reason: SALINE FLUSH Last Admin: 06/11/18 13:57 Dose: 10 ml Sodium Chloride () 10 ml IV UD PRN PRN Reason: Dialysis Catheter Flush Sodium Chloride () 10 - 40 ml IV UD PRN PRN Reason: MULTILUMEN/HICMAN CATH FLUSH Last Admin: 06/11/18 09:58 Dose: 20 ml Medical Necessity - Tobacco Use Smoking Status: Former smoker Tobacco Use: Cigarettes Assessment/Plan All Active Problems Severe sepsis (Acute) Hyperkalemia (Acute) Metabolic acidosis (Acute) Tobacco use disorder (Resolved) Cocaine dependence, episodic (Resolved) The patient is a 63 y/o F w/ PMHx: PATRICK, Chronic Hypoxic Respiratory Failure, Pulmonary Fibrosis, Diabetes mellitus type II, CKD stage IV, Morbid Obesity, Tobacco use, Depression and Anxiety, History Cocaine Abuse, HTN, HLD who presents to the [facility] ED on 06/04/18 with history of worsening dyspnea x 2 weeks with intermittent productive cough, no fevers or chills but recent URI. (1) Acute Sepsis secondary to Acute on Chronic Hypoxic Respiratory Failure, Multifactorial, Possible ARDS, ? BL Pneumonia, ? Acute on Chronic COPD Exacerbation complicated by Pulmonary HTN: Intubated, sedated, MARIAN as noted concurrent, Acute CHF exacerbation concurrently, CXR w/ ? BL PNA also, continue ATC duonebs, PRN albuterol, maintained on IV solumedrol-->prednisone, maintained on IV Rocephin and completed Azithromycin, Coag neg staph and alpha hemolytic strep sputum cultures, negative respiratory panel, negative urine antigens. Bld cx x 2 obtained in the ED with NGTD. Continued HD per Nephrology direction w/ planned HD session 06/12/18 earlier in the day with potential extubation following, currently tolerating spontaneous breathing trial well. (2) Acute on Chronic Diastolic CHF Exacerbation with ? Cor Pulmonale w/ Junctional Rhythm, Possible transient PAF with indeterminate cardiac enzymes: Cardiology consulted, junctional bradycardia felt likely secondary to hyperkalemia, following HD normalized to SR, recommendation to avoid K > 4.5, discontinuation of patient losartan, unresponsive to diuretic therapy, HD started on 06/07/18, maintained on statin, not on ASA nor BB, secondary to worsening anemia and low normal BPs. Planned likely 06/12/18 repeat HD. Episode 06/11/18 AM as noted emesis x 2, transient appearance atrial fibrillation, return to bradycardia then junctional. Cardiology updated. Cardiac enzymes obtained w/ 0.496-->0.527-->0.360. Recent 06/04/18 ECHO w/ EF 65%, moderately dilated RV, moderately enlarged LA, moderately enlarged RA, trivial MDI, RVSP 56 mmHg, moderate pulmonary hypertension, normal diastology for age. Cardiology aware and updated about arrhythmia following emesis about x2, continue medical management per discussion with them. (3) Acute Oliguric Renal Failure on CKD stage IV: Suspected secondary to acute sepsis induced ATN. Admission BUN/Cr 34/2.11, last noted 02/05/15 Cr 2.05, 06/12/18 BUN/Cr 85/2.35, HD initiated 06/07/18, R IJ access in place, 06/07/18 removal 1.7 L. Nephrology following. 06/12/18 HD planned. UOP improving. (4) Hyperkalemia: Following admission K 5.8, improved following interventions, associated w/ MARIAN, 06/10/18 K 5.2-->06/12/18 K 4.5, continue to trend. (5) Chronic Anemia, Unclear Etiology: Hgb 7.4, admission Hgb 9.8, trending down since admission, acute on chronic renal presentation, 06/12/18 Hgb 8.1. Studies w/ Fe 55, TIBC 227, Fe Sat 24.2, Ferritin 577, Vitamin B12 939, Folate 19.30, + stool guiac. Consistent with AOCD. Will continue to trend HH. PPI. May need to consider endoscopy evaluation following extubation once clinically stable and improved. (6) Diabetes mellitus type II, Uncontrolled: Intermittent hyperglycemia during admission with alteration of basal insulin, maintained currently on tube feeds, hemoglobin A1c 6.3%, accu checks w/ ISS q 6 hours while TF status. (7) Morbid Obesity: Weight loss and lifestyle changes will be encouraged, nutrition consulted. (8) Anxiety and Depression: Maintained on home citalopram regimen. (9) History of Tobacco use: Encourage continued cessation. (10) Hypertension: BP low normal, held. (11) Hyperlipidemia: Continued on home statin. (12) GERD: PPI. (13) PATRICK: Currently intubated, sedated. (14) DVT Prophylaxis: SCDs, renally dosed lovenox. Code Visit Inpatient E&M: 93545 Subs Hosp L3
--- NOTE | 2018-06-12 06:39 | PCM.PN.INT ---
Subjective: The patient was seen and examined at the bedside this morning. Events from the last 24 hours have been reviewed. The patient is currently afebrile, hemodynamically stable and maintaining appropriate oxygen saturations on spontaneous mode of mechanical ventilation with an FiO2 requirement of 45%. Yesterday and again overnight the patient experienced an underlying arrhythmia with position changes. In both instances, the patient initially became tachycardic only to later developed a junctional rhythm and subsequent bradycardia. EKGs were obtained and troponins were checked yesterday. The patient did have a mildly elevated troponin to 0.527. The patient was reevaluated by cardiology, who plans to continue medical therapy. The patient's tube feeds and sedation are currently on hold. She is currently tolerating a spontaneous breathing trial without issue. The patient is alert and appropriately interactive. Objective: The patient's most recent lab work, culture data and imaging studies have all been personally reviewed. CTA chest dated June 06 revealed no evidence for pulmonary embolism, but did demonstrate bilateral pneumonia/ARDS. Surface echocardiogram revealed normal LV size and function with an ejection fraction of 65%. The RV was moderately dilated. Right ventricular systolic pressure was estimated to be 56 mmHg. Blood cultures have shown no growth to date. Respiratory viral panel was negative. Sputum culture was positive for alpha hemolytic Streptococcus and coag negative staph. General: Alert, Cooperative, No apparent distress, - - Remains intubated and mechanically ventilated. Currently tolerating spontaneous mode of mechanical ventilation. HEENT: Atraumatic, PERRLA, Normocephalic Oral: No Gingival or Mucosal Lesions/ Ulcerations, - - Endotracheal and OG tubes remain in place. Neck: Supple, No Nodes, Trachea Midline, - - Right IJ temporary hemodialysis catheter and left-sided triple-lumen catheter in place Lungs: - - Coarse mechanical breath sounds without appreciable wheezes, rales or rhonchi. Cardiovascular: Regular rate, Regular Rhythm, Normal S1, Normal S2, No murmurs Abdomen: Bowel Sounds Present, Soft, Non Tender, Obese Extremities: No clubbing, No cyanosis, No edema Skin: - - No significant change from previous. Musculoskeletal: No Tenderness to Palpation of Joints or Extremities, No Muscle Wasting Lymphatic: No Cervical, Supraclavicular, or Inguinal Adenopathy Neurological: - - No focal neurological deficits. The patient is alert and appropriately interactive. She is following commands appropriately. Vital Signs Temp Pulse Resp BP Pulse Ox 36.4 C L 75 21 H 149/69 H 96 06/12/18 04:00 06/12/18 06:00 06/12/18 06:00 06/12/18 06:00 06/12/18 06:00 Oxygen Flow Rate (L/min) 15 Oxygen Delivery Method Mechanical Ventilator Weight: 279 lb 12.266 oz Body Mass Index (BMI) 51.5 Finger Stick Blood Glucose 383 Intake and Output for Last 24 Hours 06/10/18 06/11/18 06/12/18 23:59 23:59 23:59 Intake Total 2739.6 / 2739.6 2144 / 2144 995.9 / 995.9 Output Total 3525 / 3525 1075 / 1075 750 / 750 Balance -785.4 / -785.4 1069 / 1069 245.9 / 245.9 Labs (Last 48 Hours) 06/08/18 06/10/18 06/10/18 03:45 04:20 04:20 WBC RBC Hgb Hct MCV MCH MCHC RDW RDW Differential Plt Count MPV Immature Gran % (Auto) Neut % (Auto) Lymph % (Auto) [place] % (Auto) Eos % (Auto) Baso % (Auto) Absolute Neuts (auto) Absolute Lymphs (auto) Total Counted Nucleated RBC % Diff Path Review Absolute Retic Sodium Potassium Chloride Carbon Dioxide Anion Gap BUN Creatinine Estim Creat Clear Calc Est GFR (MDRD) Af Amer Est GFR (MDRD) Non-Af BUN/Creatinine Ratio Glucose Hemoglobin A1c 6.3 Calcium Iron TIBC Iron Saturation Ferritin Troponin I Vitamin B12 939 H Folate Hep Bs Antigen Negative Hep Bs Antibody Non Reactive Hep B Core Total Ab Negative POC Glucose 06/10/18 06/10/18 06/10/18 04:20 07:42 09:40 WBC RBC Hgb Hct MCV MCH MCHC RDW RDW Differential Plt Count MPV Immature Gran % (Auto) Neut % (Auto) Lymph % (Auto) [place] % (Auto) Eos % (Auto) Baso % (Auto) Absolute Neuts (auto) Absolute Lymphs (auto) Total Counted Nucleated RBC % Diff Path Review Absolute Retic Sodium Potassium Chloride Carbon Dioxide Anion Gap BUN Creatinine Estim Creat Clear Calc Est GFR (MDRD) Af Amer Est GFR (MDRD) Non-Af BUN/Creatinine Ratio Glucose Hemoglobin A1c Calcium Iron 55 TIBC 227 L Iron Saturation 24.2 Ferritin 577 H Troponin I Vitamin B12 Folate 19.30 Hep Bs Antigen Hep Bs Antibody Hep B Core Total Ab POC Glucose 340 H 354 H 06/10/18 06/10/18 06/10/18 13:56 18:37 22:37 WBC RBC Hgb Hct MCV MCH MCHC RDW RDW Differential Plt Count MPV Immature Gran % (Auto) Neut % (Auto) Lymph % (Auto) [place] % (Auto) Eos % (Auto) Baso % (Auto) Absolute Neuts (auto) Absolute Lymphs (auto) Total Counted Nucleated RBC % Diff Path Review Absolute Retic Sodium Potassium Chloride Carbon Dioxide Anion Gap BUN Creatinine Estim Creat Clear Calc Est GFR (MDRD) Af Amer Est GFR (MDRD) Non-Af BUN/Creatinine Ratio Glucose Hemoglobin A1c Calcium Iron TIBC Iron Saturation Ferritin Troponin I Vitamin B12 Folate Hep Bs Antigen Hep Bs Antibody Hep B Core Total Ab POC Glucose 414 H 249 H 298 H 06/11/18 06/11/18 06/11/18 02:15 04:05 04:05 WBC 13.5 H RBC 2.67 L Hgb 8.4 L Hct 26.5 L MCV 99.3 H MCH 31.5 MCHC 31.7 L RDW 14.6 RDW Differential 51.9 H Plt Count 272 MPV 9.4 Immature Gran % (Auto) 1.700 H Neut % (Auto) 73.5 H Lymph % (Auto) 18.4 L [place] % (Auto) 5.8 Eos % (Auto) 0.5 Baso % (Auto) 0.1 Absolute Neuts (auto) 9.9 H Absolute Lymphs (auto) 2.49 Total Counted Not Reportable Nucleated RBC % 0.5 Diff Path Review Absolute Retic 0.06 Sodium 140 Potassium 4.3 Chloride 100 Carbon Dioxide 31.0 Anion Gap 9 BUN 68 H Creatinine 2.29 H Estim Creat Clear Calc 22.33 Est GFR (MDRD) Af Amer 28 L Est GFR (MDRD) Non-Af 23 L BUN/Creatinine Ratio 29.7 H Glucose 270 H Hemoglobin A1c Calcium 8.2 L Iron TIBC Iron Saturation Ferritin Troponin I Vitamin B12 Folate Hep Bs Antigen Hep Bs Antibody Hep B Core Total Ab POC Glucose 277 H 06/11/18 06/11/18 06/11/18 06:40 08:15 08:25 WBC RBC Hgb Hct MCV MCH MCHC RDW RDW Differential Plt Count MPV Immature Gran % (Auto) Neut % (Auto) Lymph % (Auto) [place] % (Auto) Eos % (Auto) Baso % (Auto) Absolute Neuts (auto) Absolute Lymphs (auto) Total Counted Nucleated RBC % Diff Path Review Absolute Retic Sodium Potassium Chloride Carbon Dioxide Anion Gap BUN Creatinine Estim Creat Clear Calc Est GFR (MDRD) Af Amer Est GFR (MDRD) Non-Af BUN/Creatinine Ratio Glucose Hemoglobin A1c Calcium Iron TIBC Iron Saturation Ferritin Troponin I 0.496 H Vitamin B12 Folate Hep Bs Antigen Hep Bs Antibody Hep B Core Total Ab POC Glucose 220 H 177 H 06/11/18 06/11/18 06/11/18 09:52 12:18 13:54 WBC RBC Hgb Hct MCV MCH MCHC RDW RDW Differential Plt Count MPV Immature Gran % (Auto) Neut % (Auto) Lymph % (Auto) [place] % (Auto) Eos % (Auto) Baso % (Auto) Absolute Neuts (auto) Absolute Lymphs (auto) Total Counted Nucleated RBC % Diff Path Review Absolute Retic Sodium Potassium Chloride Carbon Dioxide Anion Gap BUN Creatinine Estim Creat Clear Calc Est GFR (MDRD) Af Amer Est GFR (MDRD) Non-Af BUN/Creatinine Ratio Glucose Hemoglobin A1c Calcium Iron TIBC Iron Saturation Ferritin Troponin I 0.527 H Vitamin B12 Folate Hep Bs Antigen Hep Bs Antibody Hep B Core Total Ab POC Glucose 151 H 123 H 06/11/18 06/11/18 06/12/18 17:39 21:52 02:18 WBC RBC Hgb Hct MCV MCH MCHC RDW RDW Differential Plt Count MPV Immature Gran % (Auto) Neut % (Auto) Lymph % (Auto) [place] % (Auto) Eos % (Auto) Baso % (Auto) Absolute Neuts (auto) Absolute Lymphs (auto) Total Counted Nucleated RBC % Diff Path Review Absolute Retic Sodium Potassium Chloride Carbon Dioxide Anion Gap BUN Creatinine Estim Creat Clear Calc Est GFR (MDRD) Af Amer Est GFR (MDRD) Non-Af BUN/Creatinine Ratio Glucose Hemoglobin A1c Calcium Iron TIBC Iron Saturation Ferritin Troponin I Vitamin B12 Folate Hep Bs Antigen Hep Bs Antibody Hep B Core Total Ab POC Glucose 196 H 220 H 169 H 06/12/18 06/12/18 04:10 04:10 WBC 11.0 RBC 2.67 L Hgb 8.1 L Hct 27.5 L MCV 103.0 H MCH 30.3 MCHC 29.5 L RDW 14.2 RDW Differential 50.7 H Plt Count 262 MPV 9.4 Immature Gran % (Auto) 2.000 H Neut % (Auto) 74.8 H Lymph % (Auto) 14.4 L [place] % (Auto) 7.3 Eos % (Auto) 1.3 Baso % (Auto) 0.2 Absolute Neuts (auto) 8.3 H Absolute Lymphs (auto) 1.59 Total Counted Not Reportable Nucleated RBC % Diff Path Review May foll Absolute Retic Sodium 143 Potassium 4.5 Chloride 103 Carbon Dioxide 30.0 Anion Gap 10 BUN 85 H Creatinine 2.35 H Estim Creat Clear Calc 21.76 Est GFR (MDRD) Af Amer 27 L Est GFR (MDRD) Non-Af 22 L BUN/Creatinine Ratio 36.2 H Glucose 192 H Hemoglobin A1c Calcium 8.5 Iron TIBC Iron Saturation Ferritin Troponin I Vitamin B12 Folate Hep Bs Antigen Hep Bs Antibody Hep B Core Total Ab POC Glucose Microbiology 06/06/18 14:40 Sputum, Induced/Lukens Gram Stain - Final 06/06/18 14:40 Sputum, Induced/Lukens Respiratory Culture - Final Sphingomonas paucimobilis 06/08/18 07:24 Sputum, Tracheal Aspirate Gram Stain - Final 06/08/18 07:24 Sputum, Tracheal Aspirate Respiratory Culture - Final Coag Negative Staph 06/10/18 06:50 Stool Stool Occult Blood (EVA) - Final Occult Blood Positive 06/04/18 15:15 Blood Culture (Wb) - Right Hand Blood Culture - Final No growth in 5 days. 06/04/18 12:03 Blood Culture (Wb) - Anticubital Left Blood Culture - Final No growth in 5 days. Clinical Impression(s) from Imaging Studies Chest X-Ray 06/04/18 12:20 IMPRESSION: Pulmonary edema or bilateral pneumonia. Electronically Signed: Karena Hawk, at 12:38 EDT Tel , Service support , Chest CT 06/04/18 13:06 IMPRESSION: Chronic interstitial lung disease with superimposed bilateral patchy pneumonia. Electronically Signed: Karena Hawk, at 14:44 EDT Tel , Service support , Chest X-Ray 06/06/18 08:50 IMPRESSION: Increased diffuse bilateral pulmonary interstitial lung markings and alveolar disease, this may represent increasing pulmonary edema and/or worsening pneumonia. There is suggestion of small bilateral pleural effusions. Electronically Signed: Carmen Price, at 9:34 EDT Tel , Service support , Chest CTA 06/06/18 10:50 IMPRESSION: No demonstrated pulmonary embolism or arterial dissection. Worsening bilateral pneumonia or ARDS. Electronically Signed: Karena Hawk, at 12:33 EDT Tel , Service support , Chest X-Ray 06/06/18 14:26 IMPRESSION: ET tube and enteric tube as above. Stable diffuse patchy airspace disease bilaterally Electronically Signed: Julito Staton DO at 16:32 EDT Tel , Service support , Chest X-Ray 06/07/18 12:49 IMPRESSION: Pulmonary edema. Electronically Signed: Karena Hawk, at 13:53 EDT Tel , Service support , KUB X-Ray 06/11/18 08:19 IMPRESSION: 1. Moderately limited study due to poor penetration secondary to patient habitus. 2. No evidence of obstruction. There is a loop of colon to the left of the pelvis. Question hernia versus displacement of abdominal contents left of the pelvis. Electronically Signed: George Lugo DO at 11:11 EDT Tel [phone], Service support , Medical Necessity - Tobacco Use Smoking Status: Former smoker Tobacco Use: Cigarettes Assessment/Plan All Active Problems Severe sepsis (Acute) Hyperkalemia (Acute) Metabolic acidosis (Acute) Tobacco use disorder (Resolved) Cocaine dependence, episodic (Resolved) RECOMMENDATIONS: 1. Continue patient on spontaneous mode of mechanical ventilation for now. 2. Her appropriateness for extubation will be reassessed following dialysis. 3. Continue antibiotics. 4. Hold tube feeds for now. 5. Continue Lantus and sliding scale insulin regimen. 6. Continue bronchodilators and steroids. 7. Continue appropriate ICU prophylaxis IMPRESSIONS: 1. Acute on chronic combined respiratory failure secondary to possible ARDS The patient has reported underlying IPF, for which she is currently prescribed Ofev by Dr. Olivia at [facility]. Therefore, the patient's decompensated respiratory status is likely multifactorial in etiology, with interstitial lung disease, pneumonia and a component of heart failure contributing. We will plan to continue current supportive measures with invasive mechanical ventilation. The patient continues to improve from a respiratory perspective. She is currently tolerating a spontaneous breathing trial. She will be maintained on CPAP with consideration given to potential extubation following completion of dialysis this morning. Antibiotics will be continued accordingly. 2. Heart failure with preserved ejection fraction/pulmonary hypertension As noted above, will continue attempts at volume optimization with hemodialysis per nephrology recommendations. Underlying pulmonary hypertension is likely related to the patient's interstitial lung disease. 3. Uncontrolled diabetes mellitus Continue Lantus and sliding scale and sling coverage. 4. Acute on chronic kidney disease Nephrology is currently following. Etiology for kidney disease is felt to be secondary to ATN. Continue hemodialysis support as indicated. 5. Morbid obesity/CKD stage III/hypertension/hyperlipidemia/depression/GERD/history of tobacco dependency Complicates care, management, recovery and prognosis. Continue to hold nephrotoxic medications. Physical therapy evaluation, once medically stabilized. TIME: 45 minutes of critical care time, independent of procedures, was spent addressing the patient's acute on chronic combined respiratory failure, underlying interstitial lung disease, possible ARDS, heart failure with preserved ejection fraction, pulmonary hypertension, uncontrolled diabetes mellitus, review of all data and collaboration with the care team. ([id number]) Code Visit 9xxxx: [id number] Critical care first hour
[2018-06-12] MEDS: Ipratropium/Albuterol Sulfate 3 ML AMPUL.NEB INHALATION ×4 (06:47→18:49)
[2018-06-12 07:35] LABS: Bedside Glucose 149 mg/dL (70-110)
[2018-06-12] MEDS: Ondansetron 4 MG/2 ML Vial IV ×3 (08:59→21:02)
[2018-06-12] MEDS: Gabapentin 300 MG Capsule GT (10:15)
[2018-06-12] MEDS: Citalopram 40 MG TABLET GT (10:15)
[2018-06-12] MEDS: Senna Tablet 2 TABLET GT (10:15)
[2018-06-12] MEDS: Glycerin/Hypromellose/PEG400 15 ml Bottle 1 DRP RIGHT EYE ×2 (10:16→21:41)
[2018-06-12] MEDS: Chlorhexidine 15 ML PO (10:16)
[2018-06-12] MEDS: predniSONE 20 MG Tablet 40 MG GT (10:16)
[2018-06-12] MEDS: prednisoLONE eye drops (5 mL) 1 DROP OPTH.BTL 2 DRP LEFT EYE (10:17)
[2018-06-12] MEDS: Acetaminophen 650 MG/20 ML UDC GT (10:42)
[2018-06-12 10:45] LABS: Bedside Glucose 170 mg/dL (70-110)
--- NOTE | 2018-06-12 11:27 | PCM.PN.REN ---
Patient Problems: Active and Suspected Problems Severe sepsis (Acute) Hyperkalemia (Acute) Metabolic acidosis (Acute) Subjective: SOB better- diuresing well - Physical Exam General: Alert, Oriented x3, Cooperative HEENT: Atraumatic, PERRLA, EOMI, Normocephalic Neck: Supple, No JVD, Negative Carotid Bruits Lungs: Clear to auscultation, Normal air movement Cardiovascular: Regular rate, No murmurs Abdomen: Bowel Sounds Present, Soft, Non Tender Extremities: No edema, Capillary Refill Less than 3 Seconds Skin: No rashes, No breakdown Musculoskeletal: No Tenderness to Palpation of Joints or Extremities Neurological: Cranial nerves II-XII grossly intact Psych/Mental Status: Normal Affect, Appropriate Vital Signs Temp Pulse Resp BP Pulse Ox 97.6 F L 74 19 H 135/67 H 97 06/12/18 09:00 06/12/18 11:00 06/12/18 11:00 06/12/18 11:00 06/12/18 11:00 Oxygen Flow Rate (L/min) 15 Oxygen Delivery Method Mechanical Ventilator Weight: 126.9 kg Body Mass Index (BMI) 51.5 Finger Stick Blood Glucose 383 Intake and Output for Last 24 Hours 06/10/18 06/11/18 06/12/18 23:59 23:59 23:59 Intake Total 2739.6 / 2739.6 2144 / 2144 1035.9 / 1035.9 Output Total 3525 / 3525 1075 / 1075 750 / 750 Balance -785.4 / -785.4 1069 / 1069 285.9 / 285.9 Microbiology Past 72 Hours 06/06/18 14:40 Gram Stain - Final Sputum, Induced/Lukens Respiratory Culture - Final Sphingomonas paucimobilis 06/08/18 07:24 Gram Stain - Final Sputum, Tracheal Aspirate Respiratory Culture - Final Coag Negative Staph 06/10/18 06:50 Stool Occult Blood (EVA) - Final Stool Occult Blood Positive 06/04/18 15:15 Blood Culture - Final Blood Culture (Wb) - Right Hand No growth in 5 days. 06/04/18 12:03 Blood Culture - Final Blood Culture (Wb) - Anticubital Left No growth in 5 days. Laboratory Tests Past 24 Hrs 06/11/18 06/12/18 06/12/18 12:18 04:10 04:10 WBC 11.0 RBC 2.67 L Hgb 8.1 L Hct 27.5 L MCV 103.0 H MCH 30.3 MCHC 29.5 L RDW 14.2 RDW Differential 50.7 H Plt Count 262 MPV 9.4 Immature Gran % (Auto) 2.000 H Neut % (Auto) 74.8 H Lymph % (Auto) 14.4 L [place] % (Auto) 7.3 Eos % (Auto) 1.3 Baso % (Auto) 0.2 Absolute Neuts (auto) 8.3 H Absolute Lymphs (auto) 1.59 Total Counted Not Reportable Diff Path Review May foll Sodium 143 Potassium 4.5 Chloride 103 Carbon Dioxide 30.0 Anion Gap 10 BUN 85 H Creatinine 2.35 H Estim Creat Clear Calc 21.76 Est GFR (MDRD) Af Amer 27 L Est GFR (MDRD) Non-Af 22 L BUN/Creatinine Ratio 36.2 H Glucose 192 H Calcium 8.5 Troponin I 0.527 H 06/12/18 04:10 WBC RBC Hgb Hct MCV MCH MCHC RDW RDW Differential Plt Count MPV Immature Gran % (Auto) Neut % (Auto) Lymph % (Auto) [place] % (Auto) Eos % (Auto) Baso % (Auto) Absolute Neuts (auto) Absolute Lymphs (auto) Total Counted Diff Path Review Sodium Potassium Chloride Carbon Dioxide Anion Gap BUN Creatinine Estim Creat Clear Calc Est GFR (MDRD) Af Amer Est GFR (MDRD) Non-Af BUN/Creatinine Ratio Glucose Calcium Troponin I 0.360 H POC Glucose 06/12/18 06/12/18 06/12/18 10:39 05:57 02:18 POC Glucose 170 H 149 H 169 H 06/11/18 06/11/18 06/11/18 21:52 17:39 13:54 POC Glucose 220 H 196 H 123 H Medical Necessity - Tobacco Use Smoking Status: Former smoker Tobacco Use: Cigarettes Assessment/Plan All Active Problems Severe sepsis (Acute) Hyperkalemia (Acute) Metabolic acidosis (Acute) Tobacco use disorder (Resolved) Cocaine dependence, episodic (Resolved) 1-acute kidney injury on chronic kidney disease. Patient has chronic kidney disease stage IV. MARIAN is most probably from sepsis induced ATN. HD started last . Right IJ temporary hemodialysis access is in place. urine output is better. creatinine is somewhat stable HD again today 2-hyperkalemia. better 3-Metabolic acidosis: better 4-acute respiratory failure due to ARDS/pneumonia. CXR shows bilateral interstitial markings. edema vs ARDS vs preexisting ILD or a combination of all continue fluid removal as tolerated
--- NOTE | 2018-06-12 14:16 | CASEMGMT ---
RN CM Note: PT/OT evaluations completed. Per verbal notification, recommendation is for SNF on discharge. NIKOLE entered for SNF placement recommendation on dc. Update called to NIKOLE Duong. Harrison RUIZN RN ACM
--- NOTE | 2018-06-12 14:33 | CASEMGMT ---
NIKOLE met with patient and her significant other. SW explained therapy is recommending she go to a [facility] facility for [facility] term rehab. She and her significant other agreed. SW gave them a list of facilities in [facility]. NIKOLE explained that if she is discharged on dialysis [facility] does not take patient's on dialysis. NIKOLE explained they will just need to give SW at least 3 choices of where she would be willing to go. SW will then take care of making the referral etc. NIKOLE told them SW will check back with them tomorrow. Christy ALEXANDRA DREDGE RUNNER
[2018-06-12 14:35] LABS: Pathologist Review Reviewed
[2018-06-12 14:50] LABS: Bedside Glucose 218 mg/dL (70-110)
--- NOTE | 2018-06-12 17:24 | PN.CARD_ITS ---
Subjectve: Patient seen and evaluated. Was getting ready to be extubated. Objective: Vital Signs Temp Pulse Resp BP Pulse Ox 97.3 F L 78 16 127/75 H 98 06/12/18 16:00 06/12/18 17:00 06/12/18 17:00 06/12/18 17:00 06/12/18 17:00 Oxygen Flow Rate (L/min) 4 Oxygen Delivery Method Nasal Cannula Weight: 279 lb 12.266 oz Body Mass Index (BMI) 51.5 Finger Stick Blood Glucose 383 Intake and Output for Last 24 Hours 06/10/18 06/11/18 06/12/18 23:59 23:59 23:59 Intake Total 2739.6 / 2739.6 2144 / 2144 1195.9 / 1195.9 Output Total 3525 / 3525 1075 / 1075 1525 / 1525 Balance -785.4 / -785.4 1069 / 1069 -329.1 / -329.1 General: Awake, Alert, Oriented x 3 HEENT: PERRL, EOMI, Sclera Non Icteric Neck: Supple, Good ROM, No Lymph Node Enlargement Lungs: Clear to auscultation Cardiovascular: Regular Rhythm, Normal S1, Normal S2, No Murmurs, No Rubs, No Gallops Vascular: No Carotid Bruits, Normal Femoral Pulses, Normal Radial Pulses, Normal Dorsalis Pedal Pulse, Normal Posterior Tibial Pulses Abdomen: Bowel Sounds Present, Soft, Non Tender, No HSM, No Organomegaly Extremities: No Cyanosis, No Clubbing, No edema Neurological: No Focal Motor or Sensory Deficit 06/12/18 04:10: WBC 11.0, RBC 2.67 L, Hgb 8.1 L, Hct 27.5 L, MCV 103.0 H, MCH 30.3, MCHC 29.5 L, RDW 14.2, RDW Differential 50.7 H, Plt Count 262, MPV 9.4, Immature Gran % (Auto) 2.000 H, Neut % (Auto) 74.8 H, Lymph % (Auto) 14.4 L, [place] % (Auto) 7.3, Eos % (Auto) 1.3, Baso % (Auto) 0.2, Absolute Neuts (auto) 8.3 H, Total Counted Not Reportable 06/12/18 04:10: Sodium 143, Potassium 4.5, Chloride 103, Carbon Dioxide 30.0, Anion Gap 10, BUN 85 H, Creatinine 2.35 H, Est GFR (MDRD) Af Amer 27 L, Est GFR (MDRD) Non-Af 22 L, BUN/Creatinine Ratio 36.2 H, Glucose 192 H, Calcium 8.5 06/12/18 04:10: Troponin I 0.360 H Rhythm: EKG: ECHO: Stress Test: Cardiac Cath: PCI: CT Surgery: Holter monitor: EPS: PPM: CXR: Chest CT Scan: Medical Necessity - Tobacco Use Smoking Status: Former smoker Tobacco Use: Cigarettes Assessment/Plan 1. Junctional bradycardia * The etiology of the above is likely secondary to the elevated potassium. Patient was started on dialysis and her rhythm has normalized for normal sinus rhythm. She is maintaining a decent blood pressure. My recommendation would be to continue dialysis and protocols to keep her potassium less than 4.5. * Her losartan should be discontinued at this time. * She did have a few junctional episodes as well as short runs of atrial fibrillation. My recommendation at this time is to continue to observe her. The exact etiology of the above is not clear but I do not think that is necessarily related to sick sinus syndrome. 2. Abnormal cardiac enzymes * She does have evidence of mildly abnormal cardiac enzymes. I suspect that the above may be on the basis of demand ischemia once again. Depending on whether she is extubated and how she does we will make further recommendations. 3. Pulmonary hypertension * She does have evidence of pulmonary hypertension and will continue with her dialysis to see whether this would improve her pulmonary pressures. * Does have a history of pulmonary fibrosis and this may be playing a role. * Thank you for allowing me to participate in the care of your patient. Please don't hesitate to call if any issues arise
[2018-06-12] MEDS: Albumin Human 25% (100 mL) 25 GM/100 ML BAG IV ×4 (18:11→18:15)
[2018-06-12] MEDS: Heparin 10,000 UNITS/10 ML Vial IV (18:12)
[2018-06-12 18:25] LABS: Bedside Glucose 144 mg/dL (70-110)
--- NOTE | 2018-06-12 19:11 | DIALYSIS ---
Hemodialysis x 3 hours completed. Pt tolerated tx well. Fluid balance -4000ml. Albumin 50g given at beginning and end of tx per MD order. Heparin 1000units/ml to close CVC ports to fill volume. Report given to SAVANNAH North. Pt Stable.
[2018-06-12] MEDS: Cyclopentolate 1% 2 ML Bottle 1 DRP LEFT EYE (21:41)
[2018-06-12 21:56] LABS: Bedside Glucose 177 mg/dL (70-110)
[2018-06-13] VITALS (27 sets, daily range): BP systolic 101–158; BP diastolic 55–95; PULSE 61–79; RESP 12–21; TEMP 35.9–37.1; O2SAT 88–98
[2018-06-13 01:25] LABS: Bedside Glucose 141 mg/dL (70-110)
[2018-06-13 03:31] LABS: Absolute Neutrophil Count 10.1 X10^3/uL (2.0-7.7); Basophil# 0.01 X10^3/uL; Basophil% 0.1 % (0-1); Eosinophil# 0.32 X10^3/uL; Eosinophils% 2.4 % (0-5); Hematocrit 27.2 % (37-47); Hemoglobin 8.1 g/dl (12.0-15.0); Lymphocyte % 12.8 % (19-41); Mean Corp Hgb Conc 29.8 g/gl (32-36); Mean Corpuscular Hgb 30.9 pg (27.0-32.0); Mean Corpuscular Volume 103.8 fL (81-99); Mean Platelet Vol. 8.9 fl (6.2-12.0); Monocyte# 1.03 X10^3/uL; Monocyte% 7.7 % (0-10); Neutrophil # 10.07 X10^3/uL (2.7-7.7); Neutrophil % 75.6 % (47-70); Platelet Count 230 K/mm3 (150-450); RBC Distribution Width CV 13.9 % (11.6-14.6); RBC Distribution Width SD 51.3 fl (35.1-43.9); Red Blood Count 2.62 M/mm3 (4.2-5.4); White Blood Count 13.3 K/mm3 (4.4-11.0)
[2018-06-13 03:43] LABS: Anion Gap 9 (5-15); BUN 59 mg/dL (7-18); BUN/Creat Ratio 25.5 RATIO (10-20); Calcium,Total 9.3 mg/dL (8.5-10.1); Chloride 101 mmol/L (98-107); Creatinine, Serum 2.31 mg/dL (0.55-1.02); EST Glomerular Filtration Rate 23 mL/min (>60); Est Glom Filt Rate - Afr Amer 27 mL/min (>60); Estimated Creatinine Clearance 22.14 ml/min; Glucose 142 mg/dL (74-106); Potassium 4.1 mmol/L (3.5-5.1); Sodium Level 141 mmol/L (136-145)
[2018-06-13 04:00] LABS: POSITIVE COUNT NO; POSITIVE DIFFERENTIAL NO; POSITIVE MORPHOLOGY NO
[2018-06-13 05:21] LABS: Bedside Glucose 126 mg/dL (70-110)
[2018-06-13] MEDS: CHLORHEXIDINE GLUC 2% CLOTH 1 EACH TOWELETTE TOPICAL (05:26)
[2018-06-13] MEDS: Enoxaparin 30 MG/0.3 ML Syringe SC (05:28)
--- NOTE | 2018-06-13 06:35 | PCM.PN.INT ---
Subjective: The patient was seen and examined at the bedside this morning. Events from the last 24 hours have been reviewed. The patient is currently afebrile, hemodynamically stable and maintaining appropriate oxygen saturations on 4 L/min via nasal cannula. The patient has done well from a respiratory perspective following extubation yesterday afternoon. She was compliant with the use of BiPAP overnight. The patient was dialyzed yesterday and did have 4 L of fluid removed. There are tentative plans for her dialysis to be repeated today. She is currently documented to be overall net -1.4 L for the admission. The patient's only complaints this morning are for that of nausea and a headache. The patient did have one episode of emesis overnight, for which she was provided with antiemetics. She denies the presence of chest pain or shortness of breath. Objective: The patient's most recent lab work, culture data and imaging studies have all been personally reviewed. CTA chest dated June 06 revealed no evidence for pulmonary embolism, but did demonstrate bilateral pneumonia/ARDS. Surface echocardiogram revealed normal LV size and function with an ejection fraction of 65%. The RV was moderately dilated. Right ventricular systolic pressure was estimated to be 56 mmHg. Blood cultures have shown no growth to date. Respiratory viral panel was negative. Sputum culture was positive for alpha hemolytic Streptococcus and coag negative staph. General: Alert, Cooperative, No apparent distress HEENT: Atraumatic, PERRLA, Normocephalic Oral: No Gingival or Mucosal Lesions/ Ulcerations, Dry Mucosa Neck: Supple, No Nodes, Trachea Midline, - - Stable central venous catheters bilaterally Lungs: No rhonchi, No wheeze, No rales, Diminished Cardiovascular: Regular rate, Regular Rhythm, Normal S1, Normal S2, No murmurs Abdomen: Bowel Sounds Present, Soft, Non Tender, Obese Extremities: No clubbing, No cyanosis, No edema Skin: - - No significant change from previous Musculoskeletal: No Tenderness to Palpation of Joints or Extremities, No Muscle Wasting Lymphatic: No Cervical, Supraclavicular, or Inguinal Adenopathy Neurological: Cranial nerves II-XII grossly intact, Neuro grossly intact Psych/Mental Status: Normal Affect, Appropriate Vital Signs Temp Pulse Resp BP Pulse Ox 36.6 C 67 13 158/71 H 94 06/13/18 00:00 06/13/18 06:00 06/13/18 06:00 06/13/18 06:00 06/13/18 06:00 Oxygen Flow Rate (L/min) 4 Oxygen Delivery Method Nasal Cannula Weight: 269 lb 6.478 oz Body Mass Index (BMI) 51.5 Finger Stick Blood Glucose 383 Intake and Output for Last 24 Hours 06/11/18 06/12/18 06/13/18 23:59 23:59 23:59 Intake Total 2144 / 2144 1945.9 / 1945.9 250 / 250 Output Total 1075 / 1075 6325 / 6325 150 / 150 Balance 1069 / 1069 -4379.1 / -4379.1 100 / 100 Labs (Last 48 Hours) 06/11/18 06/11/18 06/11/18 06:40 08:15 08:25 WBC RBC Hgb Hct MCV MCH MCHC RDW RDW Differential Plt Count MPV Immature Gran % (Auto) Neut % (Auto) Lymph % (Auto) [place] % (Auto) Eos % (Auto) Baso % (Auto) Absolute Neuts (auto) Absolute Lymphs (auto) Total Counted Diff Path Review Sodium Potassium Chloride Carbon Dioxide Anion Gap BUN Creatinine Estim Creat Clear Calc Est GFR (MDRD) Af Amer Est GFR (MDRD) Non-Af BUN/Creatinine Ratio Glucose Calcium Troponin I 0.496 H POC Glucose 220 H 177 H 06/11/18 06/11/18 06/11/18 09:52 12:18 13:54 WBC RBC Hgb Hct MCV MCH MCHC RDW RDW Differential Plt Count MPV Immature Gran % (Auto) Neut % (Auto) Lymph % (Auto) [place] % (Auto) Eos % (Auto) Baso % (Auto) Absolute Neuts (auto) Absolute Lymphs (auto) Total Counted Diff Path Review Sodium Potassium Chloride Carbon Dioxide Anion Gap BUN Creatinine Estim Creat Clear Calc Est GFR (MDRD) Af Amer Est GFR (MDRD) Non-Af BUN/Creatinine Ratio Glucose Calcium Troponin I 0.527 H POC Glucose 151 H 123 H 06/11/18 06/11/18 06/12/18 17:39 21:52 02:18 WBC RBC Hgb Hct MCV MCH MCHC RDW RDW Differential Plt Count MPV Immature Gran % (Auto) Neut % (Auto) Lymph % (Auto) [place] % (Auto) Eos % (Auto) Baso % (Auto) Absolute Neuts (auto) Absolute Lymphs (auto) Total Counted Diff Path Review Sodium Potassium Chloride Carbon Dioxide Anion Gap BUN Creatinine Estim Creat Clear Calc Est GFR (MDRD) Af Amer Est GFR (MDRD) Non-Af BUN/Creatinine Ratio Glucose Calcium Troponin I POC Glucose 196 H 220 H 169 H 06/12/18 06/12/18 06/12/18 04:10 04:10 04:10 WBC 11.0 RBC 2.67 L Hgb 8.1 L Hct 27.5 L MCV 103.0 H MCH 30.3 MCHC 29.5 L RDW 14.2 RDW Differential 50.7 H Plt Count 262 MPV 9.4 Immature Gran % (Auto) 2.000 H Neut % (Auto) 74.8 H Lymph % (Auto) 14.4 L [place] % (Auto) 7.3 Eos % (Auto) 1.3 Baso % (Auto) 0.2 Absolute Neuts (auto) 8.3 H Absolute Lymphs (auto) 1.59 Total Counted Not Reportable Diff Path Review Reviewed Sodium 143 Potassium 4.5 Chloride 103 Carbon Dioxide 30.0 Anion Gap 10 BUN 85 H Creatinine 2.35 H Estim Creat Clear Calc 21.76 Est GFR (MDRD) Af Amer 27 L Est GFR (MDRD) Non-Af 22 L BUN/Creatinine Ratio 36.2 H Glucose 192 H Calcium 8.5 Troponin I 0.360 H POC Glucose 06/12/18 06/12/18 06/12/18 05:57 10:39 14:43 WBC RBC Hgb Hct MCV MCH MCHC RDW RDW Differential Plt Count MPV Immature Gran % (Auto) Neut % (Auto) Lymph % (Auto) [place] % (Auto) Eos % (Auto) Baso % (Auto) Absolute Neuts (auto) Absolute Lymphs (auto) Total Counted Diff Path Review Sodium Potassium Chloride Carbon Dioxide Anion Gap BUN Creatinine Estim Creat Clear Calc Est GFR (MDRD) Af Amer Est GFR (MDRD) Non-Af BUN/Creatinine Ratio Glucose Calcium Troponin I POC Glucose 149 H 170 H 218 H 06/12/18 06/12/18 06/13/18 18:10 21:39 01:20 WBC RBC Hgb Hct MCV MCH MCHC RDW RDW Differential Plt Count MPV Immature Gran % (Auto) Neut % (Auto) Lymph % (Auto) [place] % (Auto) Eos % (Auto) Baso % (Auto) Absolute Neuts (auto) Absolute Lymphs (auto) Total Counted Diff Path Review Sodium Potassium Chloride Carbon Dioxide Anion Gap BUN Creatinine Estim Creat Clear Calc Est GFR (MDRD) Af Amer Est GFR (MDRD) Non-Af BUN/Creatinine Ratio Glucose Calcium Troponin I POC Glucose 144 H 177 H 141 H 06/13/18 06/13/18 06/13/18 03:25 03:25 05:18 WBC 13.3 H RBC 2.62 L Hgb 8.1 L Hct 27.2 L MCV 103.8 H MCH 30.9 MCHC 29.8 L RDW 13.9 RDW Differential 51.3 H Plt Count 230 MPV 8.9 Immature Gran % (Auto) 1.400 H Neut % (Auto) 75.6 H Lymph % (Auto) 12.8 L [place] % (Auto) 7.7 Eos % (Auto) 2.4 Baso % (Auto) 0.1 Absolute Neuts (auto) 10.1 H Absolute Lymphs (auto) 1.70 Total Counted Not Reportable Diff Path Review Sodium 141 Potassium 4.1 Chloride 101 Carbon Dioxide 31.0 Anion Gap 9 BUN 59 H Creatinine 2.31 H Estim Creat Clear Calc 22.14 Est GFR (MDRD) Af Amer 27 L Est GFR (MDRD) Non-Af 23 L BUN/Creatinine Ratio 25.5 H Glucose 142 H Calcium 9.3 Troponin I POC Glucose 126 H Microbiology 06/06/18 14:40 Sputum, Induced/Lukens Gram Stain - Final 06/06/18 14:40 Sputum, Induced/Lukens Respiratory Culture - Final Sphingomonas paucimobilis Clinical Impression(s) from Imaging Studies Chest X-Ray 06/04/18 12:20 IMPRESSION: Pulmonary edema or bilateral pneumonia. Electronically Signed: Karena Hawk, at 12:38 EDT Tel , Service support , Chest CT 06/04/18 13:06 IMPRESSION: Chronic interstitial lung disease with superimposed bilateral patchy pneumonia. Electronically Signed: Karena Hawk, at 14:44 EDT Tel , Service support , Chest X-Ray 06/06/18 08:50 IMPRESSION: Increased diffuse bilateral pulmonary interstitial lung markings and alveolar disease, this may represent increasing pulmonary edema and/or worsening pneumonia. There is suggestion of small bilateral pleural effusions. Electronically Signed: Carmen Price, at 9:34 EDT Tel , Service support , Chest CTA 06/06/18 10:50 IMPRESSION: No demonstrated pulmonary embolism or arterial dissection. Worsening bilateral pneumonia or ARDS. Electronically Signed: Karena Hawk, at 12:33 EDT Tel , Service support , Chest X-Ray 06/06/18 14:26 IMPRESSION: ET tube and enteric tube as above. Stable diffuse patchy airspace disease bilaterally Electronically Signed: Julito Staton DO at 16:32 EDT Tel , Service support , Chest X-Ray 06/07/18 12:49 IMPRESSION: Pulmonary edema. Electronically Signed: Karena Hawk, at 13:53 EDT Tel , Service support , KUB X-Ray 06/11/18 08:19 IMPRESSION: 1. Moderately limited study due to poor penetration secondary to patient habitus. 2. No evidence of obstruction. There is a loop of colon to the left of the pelvis. Question hernia versus displacement of abdominal contents left of the pelvis. Electronically Signed: George Lugo DO at 11:11 EDT Tel [phone], Service support , Medical Necessity - Tobacco Use Smoking Status: Former smoker Tobacco Use: Cigarettes Assessment/Plan All Active Problems Severe sepsis (Acute) Hyperkalemia (Acute) Metabolic acidosis (Acute) Tobacco use disorder (Resolved) Cocaine dependence, episodic (Resolved) RECOMMENDATIONS: 1. Decrease prednisone to 20 mg daily. Plan to wean by 10 mg every 3 days. 2. Decrease basal insulin regimen. 3. Restart bowel regimen. 4. Discontinue antibiotics, as the patient has completed her treatment course. 5. Continue bronchodilators as ordered. 6. Wean supplemental oxygen to maintain saturations at or above 90%. 7. Encourage incentive spirometer use and mobilize patient as tolerated. 8. Continue hemodialysis per nephrology recommendations. 9. Continue BiPAP therapy with naps and nightly. IMPRESSIONS: 1. Acute on chronic combined respiratory failure secondary to possible ARDS The patient has reported underlying IPF, for which she is currently prescribed Ofev by Dr. Olivia at [facility]. Therefore, the patient's decompensated respiratory status is likely multifactorial in etiology, with interstitial lung disease, pneumonia and a component of heart failure contributing. The patient was able to be successfully liberated from invasive mechanical ventilation on June 12. She has done well from a respiratory perspective following extubation. She is completed a treatment course of antibiotics at this time. We will plan to continue to wean her supplemental oxygen to maintain saturations at or above 90%. Encourage incentive spirometer use and mobilize patient as tolerated. The patient's prednisone will be decreased to 20 mg daily, with plans to wean by 10 mg every 3 days. 2. Heart failure with preserved ejection fraction/pulmonary hypertension As noted above, will continue attempts at volume optimization with hemodialysis per nephrology recommendations. Underlying pulmonary hypertension is likely related to the patient's interstitial lung disease. 3. Uncontrolled diabetes mellitus Continue Lantus and sliding scale and sling coverage. The patient's basal insulin regimen will be decreased today. 4. Acute on chronic kidney disease Nephrology is currently following. Etiology for kidney disease is felt to be secondary to ATN. Continue hemodialysis support as indicated. 5. Morbid obesity/CKD stage III/hypertension/hyperlipidemia/depression/GERD/history of tobacco dependency Complicates care, management, recovery and prognosis. Continue to hold nephrotoxic medications. Physical therapy to work with patient. Anticipate custodial need at the time of her discharge. This note was generated with [email or web address] software. It may contain incorrect words, spelling, and punctuation that were not noted in checking the note before signing. DISPOSITION: The patient is medically stable for transfer out of the intensive care unit. Code Visit Inpatient E&M: 18856 Subs Hosp L3
[2018-06-13] MEDS: Ipratropium/Albuterol Sulfate 3 ML AMPUL.NEB INHALATION ×3 (07:06→19:04)
[2018-06-13] MEDS: Ondansetron 4 MG/2 ML Vial IV ×2 (07:09→13:27)
--- NOTE | 2018-06-13 07:27 | PCM.PN.HOSP ---
Patient Problems: Active and Suspected Problems Severe sepsis (Acute) Hyperkalemia (Acute) Metabolic acidosis (Acute) Subjective: Patient overnight with no recurrent concerning cardiac events or telemetry market changes. Patient did have some nausea and this was noted to follow inappropriate oral hydration, drinking too much, this was slowed down and patient improved. She did have nausea again today with initiation of dialysis but is being given a second antibiotic currently and has had only one episode of emesis. Patient denies any recurrent current abdominal discomfort with dialysis restart as she had some discomfort the day prior but this resolved following dialysis discontinuation. Discussed current status with plan for additional 3 L removal today. Patient urine output expectantly has decreased given 4 L removal day prior with dialysis. Given patient clinical improvement, successful extubation, stabilization of labs will plan transition from ICU to PCU status which was discussed with patient and family member. Patient denies fevers, chills, abdominal pain, chest pain or worsened or recurrent dyspnea. Objective: Physical Examination: General: awake, alert, oriented x 3 and cooperative, seated upright bedside, HD ongoing currently, had emesis x 1, feels improved now. Skin: normal color, turgor, no icterus, cyanosis. HEENT: AT/NC, EOMI, PERRLA, MMM. Lungs: Remains diminished BS, > BL bases, mild rales bases, L>R, no wheezing currently. Heart: Regular rate and rhythm; no gallop, rub audible. Abdomen: soft, morbidly obese, NTTP, ND, normal BS. Extremities: no cyanosis, clubbing, resolved BL LE edema. Neurological: patient awake, alert, oriented x 3; cognitive function intact; pupils equally reactive to light and accomodation; cranial nerves II-XII grossly normal, moving all 4 extremities, no focal deficits, strength improving, moderately globally decreased secondary to acute presentation. Psychiatric: affect appears normal, no acute evidence of depressive or anxiety feelings. Vitals/I&O's: Vital Signs Temp Pulse Resp BP Pulse Ox 97.9 F 65 18 158/71 H 97 06/13/18 00:00 06/13/18 07:06 06/13/18 07:06 06/13/18 06:00 06/13/18 07:06 Oxygen Flow Rate (L/min) 4 Oxygen Delivery Method Nasal Cannula Weight: 269 lb 6.478 oz Body Mass Index (BMI) 51.5 Finger Stick Blood Glucose 383 Intake and Output for Last 24 Hours 06/11/18 06/12/18 06/13/18 23:59 23:59 23:59 Intake Total 2144 / 2144 1945.9 / 1945.9 250 / 250 Output Total 1075 / 1075 6325 / 6325 150 / 150 Balance 1069 / 1069 -4379.1 / -4379.1 100 / 100 Microbiology Past 72 Hours 06/06/18 14:40 Sputum, Induced/Lukens Gram Stain - Final 06/06/18 14:40 Sputum, Induced/Lukens Respiratory Culture - Final Sphingomonas paucimobilis 06/08/18 07:24 Sputum, Tracheal Aspirate Gram Stain - Final 06/08/18 07:24 Sputum, Tracheal Aspirate Respiratory Culture - Final Coag Negative Staph 06/10/18 06:50 Stool Stool Occult Blood (EVA) - Final Occult Blood Positive 06/04/18 15:15 Blood Culture (Wb) - Right Hand Blood Culture - Final No growth in 5 days. 06/04/18 12:03 Blood Culture (Wb) - Anticubital Left Blood Culture - Final No growth in 5 days. Laboratory Results 06/12/18 04:10: Diff Path Review Reviewed 06/12/18 05:57: POC Glucose 149 H 06/12/18 10:39: POC Glucose 170 H 06/12/18 14:43: POC Glucose 218 H 06/12/18 18:10: POC Glucose 144 H 06/12/18 21:39: POC Glucose 177 H 06/13/18 01:20: POC Glucose 141 H 06/13/18 03:25: WBC 13.3 H, RBC 2.62 L, Hgb 8.1 L, Hct 27.2 L, MCV 103.8 H, MCH 30.9, MCHC 29.8 L, RDW 13.9, RDW Differential 51.3 H, Plt Count 230, MPV 8.9, Immature Gran % (Auto) 1.400 H, Neut % (Auto) 75.6 H, Lymph % (Auto) 12.8 L, [place] % (Auto) 7.7, Eos % (Auto) 2.4, Baso % (Auto) 0.1, Absolute Neuts (auto) 10.1 H, Absolute Lymphs (auto) 1.70, Total Counted Not Reportable 06/13/18 03:25: Sodium 141, Potassium 4.1, Chloride 101, Carbon Dioxide 31.0, Anion Gap 9, BUN 59 H, Creatinine 2.31 H, Estim Creat Clear Calc 22.14, Est GFR (MDRD) Af Amer 27 L, Est GFR (MDRD) Non-Af 23 L, BUN/Creatinine Ratio 25.5 H, Glucose 142 H, Calcium 9.3 06/13/18 05:18: POC Glucose 126 H Current Medications Acetaminophen (Tylenol) 650 mg PO Q6H PRN PRN PRN Reason: fever over 100.4 or pain Albuterol Sulfate (Ventolin Aerosols) 2.5 mg INHALATION Q2H PRN PRN PRN Reason: SHORTNESS OF BREATH Last Admin: 06/06/18 05:07 Dose: 2.5 mg Albuterol/Ipratropium (Duoneb) 3 ml INHALATION Q4HWA.RT [facility] Last Admin: 06/13/18 07:06 Dose: 3 ml Atorvastatin Calcium (Lipitor) 40 mg PO QHS [facility] Last Admin: 06/12/18 21:59 Dose: Not Given Atropine Sulfate () 0.5 mg IV X1 PRN PRN Reason: HR < 35 sustained, MAP < 60 Chlorhexidine Gluconate () 1 each TOPICAL DAILY [facility] Last Admin: 06/13/18 05:26 Dose: 1 each Citalopram Hydrobromide (Celexa) 40 mg PO DAILY [facility] Cyclopentolate HCl (Cyclogyl) 1 drop LEFT EYE QHS [facility] Last Admin: 06/12/18 21:41 Dose: 1 drop Dextrose (D50w Syringe) 0 gm IV X1 PRN; Protocol PRN Reason: Hypoglycemia Enoxaparin Sodium (Lovenox) 30 mg SC DAILY@0600 [facility] Last Admin: 06/13/18 05:28 Dose: 30 mg Gabapentin (Neurontin) 300 mg PO BIDCM [facility] Last Admin: 06/12/18 18:16 Dose: Not Given Glucagon () 1 mg IM .X1 PRN PRN Reason: Hypoglycemia Heparin Sodium (Porcine) () 2,500 units IV UD PRN PRN Reason: HEPARIN FLUSH Last Admin: 06/07/18 12:00 Dose: 2,500 units Ceftriaxone Sodium 2 gm/ (Sodium Chloride) 50 mls @ 100 mls/hr IV Q24 [facility] Last Admin: 06/12/18 10:19 Dose: 100 mls/hr Pantoprazole Sodium 40 mg/ (Sodium Chloride) 110 mls @ 330 mls/hr IV Q24 [facility] Last Admin: 06/12/18 10:19 Dose: 330 mls/hr Insulin Glargine (Lantus (Bkc)) 40 units SC BID [facility] Last Admin: 06/12/18 21:42 Dose: 40 u Insulin Human Lispro (Humalog Kwikpen (Bkc)) 0 unit SQ Q4 [facility]; Protocol Last Admin: 06/13/18 05:27 Dose: Not Given Ondansetron HCl (Zofran) 4 mg IV Q6H PRN PRN PRN Reason: NAUSEA/VOMITING Last Admin: 06/13/18 07:09 Dose: 4 mg Polyethylene Glycol (Miralax) 17 gm PO DAILY PRN PRN Reason: Constipation Prednisolone Acetate (Pred Forte Eye Drops (5 Ml)) 2 drop LEFT EYE DAILY [facility] Last Admin: 06/12/18 10:17 Dose: 2 drop Prednisone () 40 mg PO DAILY@0800 [facility] Senna/Docusate Sodium (Senokot-S, Jade-Colace) 2 tablet PO DAILY PRN PRN PRN Reason: CONSTIPATION Sodium Chloride () 5 - 15 ml IV UD PRN PRN Reason: SALINE FLUSH Last Admin: 06/11/18 13:57 Dose: 10 ml Sodium Chloride () 10 ml IV UD PRN PRN Reason: Dialysis Catheter Flush Sodium Chloride () 10 - 40 ml IV UD PRN PRN Reason: MULTILUMEN/HICMAN CATH FLUSH Last Admin: 06/13/18 07:09 Dose: 20 ml Medical Necessity - Tobacco Use Smoking Status: Former smoker Tobacco Use: Cigarettes Assessment/Plan All Active Problems Severe sepsis (Acute) Hyperkalemia (Acute) Metabolic acidosis (Acute) Tobacco use disorder (Resolved) Cocaine dependence, episodic (Resolved) The patient is a 63 y/o F w/ PMHx: PATRICK, Chronic Hypoxic Respiratory Failure, Pulmonary Fibrosis, Diabetes mellitus type II, CKD stage IV, Morbid Obesity, Tobacco use, Depression and Anxiety, History Cocaine Abuse, HTN, HLD who presents to the [facility] ED on 06/04/18 with history of worsening dyspnea x 2 weeks with intermittent productive cough, no fevers or chills but recent URI. (1) Acute Sepsis secondary to Acute on Chronic Hypoxic Respiratory Failure, Multifactorial, Possible ARDS, ? BL Pneumonia, ? Acute on Chronic COPD Exacerbation complicated by Pulmonary HTN: Intubated, sedated, MARIAN as noted concurrent, Acute CHF exacerbation concurrently, CXR w/ ? BL PNA also, continue ATC duonebs, PRN albuterol, maintained on IV solumedrol-->prednisone, maintained on IV Rocephin and completed Azithromycin, Coag neg staph and alpha hemolytic strep sputum cultures, negative respiratory panel, negative urine antigens. Bld cx x 2 obtained in the ED with NGTD. 06/12/18 successful SBT and extubation. Continued HD per Nephrology direction w/ session 06/12/18 4L, planned repeat 06/13/18 session with likely 3L removal. PT, OT, CM consulted. Planned transition to PCU today per discussion with Dr. Bello. (2) Acute on Chronic Diastolic CHF Exacerbation with ? Cor Pulmonale w/ Junctional Rhythm, Possible transient PAF with indeterminate cardiac enzymes: Cardiology consulted, junctional bradycardia felt likely secondary to hyperkalemia, following HD normalized to SR, recommendation to avoid K > 4.5, discontinuation of patient losartan, unresponsive to diuretic therapy, HD started on 06/07/18, maintained on statin, not on ASA nor BB, secondary to worsening anemia and low normal BPs. Planned likely 06/12/18 repeat HD. Episode 06/11/18 AM as noted emesis x 2, transient appearance atrial fibrillation, return to bradycardia then junctional. Cardiology updated. Cardiac enzymes obtained w/ 0.496-->0.527-->0.360. Recent 06/04/18 ECHO w/ EF 65%, moderately dilated RV, moderately enlarged LA, moderately enlarged RA, trivial MDI, RVSP 56 mmHg, moderate pulmonary hypertension, normal diastology for age. Cardiology aware and updated about arrhythmia following emesis about x2, continue medical management per discussion with them and avoid K > 4.5. (3) Acute Oliguric Renal Failure on CKD stage IV: Suspected secondary to acute sepsis induced ATN. Admission BUN/Cr 34/2.11, last noted 02/05/15 Cr 2.05, 06/13/18 BUN/Cr 59/2.31, HD initiated 06/07/18, R IJ access in place, 06/07/18 removal 1.7 L, 06/12/18 HD 4L, planned repeat HD 06/13/18. UOP decreased since day prior, but given HD 4L removal expected. Likely will not have HD 06/14/18, but possible UF only. (4) Hyperkalemia: Following admission K 5.8, improved following interventions, associated w/ MARIAN, 06/10/18 K 5.2-->06/13/18 K 4.1, continue to trend. (5) Chronic Anemia, Unclear Etiology: Hgb 7.4, admission Hgb 9.8, trending down since admission, acute on chronic renal presentation, 06/12/18 Hgb 8.1 with repeat 06/12/18 Hgb 8.1. Studies w/ Fe 55, TIBC 227, Fe Sat 24.2, Ferritin 577, Vitamin B12 939, Folate 19.30, + stool guiac. Consistent with AOCD. Will continue to trend HH. Will discuss with Surgery as may need to consider endoscopy evaluation outpatient. Nausea may be associated with gastritis. Continued PPI. (6) Diabetes mellitus type II, Uncontrolled: Intermittent hyperglycemia during admission with alteration of basal insulin, maintained initially on tube feeds, successfully extubated 06/12/18. Hemoglobin A1c 6.3%. Starting diet, currently clears with slow transition, will change to accu checks w/ ISS q ACHS, on scheduled lantus which may need to be decreased as improves. (7) Morbid Obesity: Weight loss and lifestyle changes will be encouraged, nutrition consulted. (8) Anxiety and Depression: Maintained on home citalopram regimen. (9) History of Tobacco use: Encourage continued cessation. (10) Hypertension: BP low normal, held. (11) Hyperlipidemia: Continued on home statin. (12) GERD: PPI. (13) PATRICK: Currently intubated, sedated. (14) DVT Prophylaxis: SCDs, renally dosed lovenox. Code Visit Inpatient E&M: 87348 [facility] Hosp L3
--- NOTE | 2018-06-13 07:33 | PN_ITS ---
Patient Problems: Active and Suspected Problems Severe sepsis (Acute) Hyperkalemia (Acute) Metabolic acidosis (Acute) Subjective: Patient overnight with no recurrent concerning cardiac events or telemetry market changes. Patient did have some nausea and this was noted to follow inappropriate oral hydration, drinking too much, this was slowed down and patient improved. She did have nausea again today with initiation of dialysis but is being given a second antibiotic currently and has had only one episode of emesis. Patient denies any recurrent current abdominal discomfort with dialysis restart as she had some discomfort the day prior but this resolved following dialysis discontinuation. Discussed current status with plan for additional 3 L removal today. Patient urine output expectantly has decreased given 4 L removal day prior with dialysis. Given patient clinical improvement, successful extubation, stabilization of labs will plan transition from ICU to PCU status which was discussed with patient and family member. Patient denies fevers, chills, abdominal pain, chest pain or worsened or recurrent dyspnea. Objective: Physical Examination: General: awake, alert, oriented x 3 and cooperative, seated upright bedside, HD ongoing currently, had emesis x 1, feels improved now. Skin: normal color, turgor, no icterus, cyanosis. HEENT: AT/NC, EOMI, PERRLA, MMM. Lungs: Remains diminished BS, > BL bases, mild rales bases, L>R, no wheezing currently. Heart: Regular rate and rhythm; no gallop, rub audible. Abdomen: soft, morbidly obese, NTTP, ND, normal BS. Extremities: no cyanosis, clubbing, resolved BL LE edema. Neurological: patient awake, alert, oriented x 3; cognitive function intact; pupils equally reactive to light and accomodation; cranial nerves II-XII grossly normal, moving all 4 extremities, no focal deficits, strength improving, moderately globally decreased secondary to acute presentation. Psychiatric: affect appears normal, no acute evidence of depressive or anxiety feelings. Vitals/I&O's: Vital Signs Temp Pulse Resp BP Pulse Ox 97.9 F 65 18 158/71 H 97 06/13/18 00:00 06/13/18 07:06 06/13/18 07:06 06/13/18 06:00 06/13/18 07:06 Oxygen Flow Rate (L/min) 4 Oxygen Delivery Method Nasal Cannula Weight: 269 lb 6.478 oz Body Mass Index (BMI) 51.5 Finger Stick Blood Glucose 383 Intake and Output for Last 24 Hours 06/11/18 06/12/18 06/13/18 23:59 23:59 23:59 Intake Total 2144 / 2144 1945.9 / 1945.9 250 / 250 Output Total 1075 / 1075 6325 / 6325 150 / 150 Balance 1069 / 1069 -4379.1 / -4379.1 100 / 100 Microbiology Past 72 Hours 06/06/18 14:40 Sputum, Induced/Lukens Gram Stain - Final 06/06/18 14:40 Sputum, Induced/Lukens Respiratory Culture - Final Sphingomonas paucimobilis 06/08/18 07:24 Sputum, Tracheal Aspirate Gram Stain - Final 06/08/18 07:24 Sputum, Tracheal Aspirate Respiratory Culture - Final Coag Negative Staph 06/10/18 06:50 Stool Stool Occult Blood (EVA) - Final Occult Blood Positive 06/04/18 15:15 Blood Culture (Wb) - Right Hand Blood Culture - Final No growth in 5 days. 06/04/18 12:03 Blood Culture (Wb) - Anticubital Left Blood Culture - Final No growth in 5 days. Laboratory Results 06/12/18 04:10: Diff Path Review Reviewed 06/12/18 05:57: POC Glucose 149 H 06/12/18 10:39: POC Glucose 170 H 06/12/18 14:43: POC Glucose 218 H 06/12/18 18:10: POC Glucose 144 H 06/12/18 21:39: POC Glucose 177 H 06/13/18 01:20: POC Glucose 141 H 06/13/18 03:25: WBC 13.3 H, RBC 2.62 L, Hgb 8.1 L, Hct 27.2 L, MCV 103.8 H, MCH 30.9, MCHC 29.8 L, RDW 13.9, RDW Differential 51.3 H, Plt Count 230, MPV 8.9, Immature Gran % (Auto) 1.400 H, Neut % (Auto) 75.6 H, Lymph % (Auto) 12.8 L, Bandera % (Auto) 7.7, Eos % (Auto) 2.4, Baso % (Auto) 0.1, Absolute Neuts (auto) 10.1 H, Absolute Lymphs (auto) 1.70, Total Counted Not Reportable 06/13/18 03:25: Sodium 141, Potassium 4.1, Chloride 101, Carbon Dioxide 31.0, Anion Gap 9, BUN 59 H, Creatinine 2.31 H, Estim Creat Clear Calc 22.14, Est GFR (MDRD) Af Amer 27 L, Est GFR (MDRD) Non-Af 23 L, BUN/Creatinine Ratio 25.5 H, Glucose 142 H, Calcium 9.3 06/13/18 05:18: POC Glucose 126 H Current Medications Acetaminophen (Tylenol) 650 mg PO Q6H PRN PRN PRN Reason: fever over 100.4 or pain Albuterol Sulfate (Ventolin Aerosols) 2.5 mg INHALATION Q2H PRN PRN PRN Reason: SHORTNESS OF BREATH Last Admin: 06/06/18 05:07 Dose: 2.5 mg Albuterol/Ipratropium (Duoneb) 3 ml INHALATION Q4HWA.RT [facility] Last Admin: 06/13/18 07:06 Dose: 3 ml Atorvastatin Calcium (Lipitor) 40 mg PO QHS [facility] Last Admin: 06/12/18 21:59 Dose: Not Given Atropine Sulfate () 0.5 mg IV X1 PRN PRN Reason: HR < 35 sustained, MAP < 60 Chlorhexidine Gluconate () 1 each TOPICAL DAILY [facility] Last Admin: 06/13/18 05:26 Dose: 1 each Citalopram Hydrobromide (Celexa) 40 mg PO DAILY [facility] Cyclopentolate HCl (Cyclogyl) 1 drop LEFT EYE QHS [facility] Last Admin: 06/12/18 21:41 Dose: 1 drop Dextrose (D50w Syringe) 0 gm IV X1 PRN; Protocol PRN Reason: Hypoglycemia Enoxaparin Sodium (Lovenox) 30 mg SC DAILY@0600 [facility] Last Admin: 06/13/18 05:28 Dose: 30 mg Gabapentin (Neurontin) 300 mg PO BIDCM [facility] Last Admin: 06/12/18 18:16 Dose: Not Given Glucagon () 1 mg IM .X1 PRN PRN Reason: Hypoglycemia Heparin Sodium (Porcine) () 2,500 units IV UD PRN PRN Reason: HEPARIN FLUSH Last Admin: 06/07/18 12:00 Dose: 2,500 units Ceftriaxone Sodium 2 gm/ (Sodium Chloride) 50 mls @ 100 mls/hr IV Q24 [facility] Last Admin: 06/12/18 10:19 Dose: 100 mls/hr Pantoprazole Sodium 40 mg/ (Sodium Chloride) 110 mls @ 330 mls/hr IV Q24 [facility] Last Admin: 06/12/18 10:19 Dose: 330 mls/hr Insulin Glargine (Lantus (Bkc)) 40 units SC BID [facility] Last Admin: 06/12/18 21:42 Dose: 40 u Insulin Human Lispro (Humalog Kwikpen (Bkc)) 0 unit SQ Q4 [facility]; Protocol Last Admin: 06/13/18 05:27 Dose: Not Given Ondansetron HCl (Zofran) 4 mg IV Q6H PRN PRN PRN Reason: NAUSEA/VOMITING Last Admin: 06/13/18 07:09 Dose: 4 mg Polyethylene Glycol (Miralax) 17 gm PO DAILY PRN PRN Reason: Constipation Prednisolone Acetate (Pred Forte Eye Drops (5 Ml)) 2 drop LEFT EYE DAILY [facility] Last Admin: 06/12/18 10:17 Dose: 2 drop Prednisone () 40 mg PO DAILY@0800 [facility] Senna/Docusate Sodium (Senokot-S, Jade-Colace) 2 tablet PO DAILY PRN PRN PRN Reason: CONSTIPATION Sodium Chloride () 5 - 15 ml IV UD PRN PRN Reason: SALINE FLUSH Last Admin: 06/11/18 13:57 Dose: 10 ml Sodium Chloride () 10 ml IV UD PRN PRN Reason: Dialysis Catheter Flush Sodium Chloride () 10 - 40 ml IV UD PRN PRN Reason: MULTILUMEN/HICMAN CATH FLUSH Last Admin: 06/13/18 07:09 Dose: 20 ml Medical Necessity - Tobacco Use Smoking Status: Former smoker Tobacco Use: Cigarettes Assessment/Plan All Active Problems Severe sepsis (Acute) Hyperkalemia (Acute) Metabolic acidosis (Acute) Tobacco use disorder (Resolved) Cocaine dependence, episodic (Resolved) The patient is a 63 y/o F w/ PMHx: PATRICK, Chronic Hypoxic Respiratory Failure, Pulmonary Fibrosis, Diabetes mellitus type II, CKD stage IV, Morbid Obesity, Tobacco use, Depression and Anxiety, History Cocaine Abuse, HTN, HLD who presents to the [facility] ED on 06/04/18 with history of worsening dyspnea x 2 weeks with intermittent productive cough, no fevers or chills but recent URI. (1) Acute Sepsis secondary to Acute on Chronic Hypoxic Respiratory Failure, Multifactorial, Possible ARDS, ? BL Pneumonia, ? Acute on Chronic COPD Exacerbation complicated by Pulmonary HTN: Intubated, sedated, MARIAN as noted concurrent, Acute CHF exacerbation concurrently, CXR w/ ? BL PNA also, continue ATC duonebs, PRN albuterol, maintained on IV solumedrol-->prednisone, maintained on IV Rocephin and completed Azithromycin, Coag neg staph and alpha hemolytic strep sputum cultures, negative respiratory panel, negative urine antigens. Bld cx x 2 obtained in the ED with NGTD. 06/12/18 successful SBT and extubation. Continued HD per Nephrology direction w/ session 06/12/18 4L, planned repeat 06/13/18 session with likely 3L removal. PT, OT, CM consulted. Planned transition to PCU today per discussion with Dr. Bello. (2) Acute on Chronic Diastolic CHF Exacerbation with ? Cor Pulmonale w/ Junctional Rhythm, Possible transient PAF with indeterminate cardiac enzymes: Cardiology consulted, junctional bradycardia felt likely secondary to hyperkalemia, following HD normalized to SR, recommendation to avoid K > 4.5, discontinuation of patient losartan, unresponsive to diuretic therapy, HD started on 06/07/18, maintained on statin, not on ASA nor BB, secondary to worsening anemia and low normal BPs. Planned likely 06/12/18 repeat HD. Episode 06/11/18 AM as noted emesis x 2, transient appearance atrial fibrillation, return to bradycardia then junctional. Cardiology updated. Cardiac enzymes obtained w/ 0.496-->0.527-->0.360. Recent 06/04/18 ECHO w/ EF 65%, moderately dilated RV, moderately enlarged LA, moderately enlarged RA, trivial MDI, RVSP 56 mmHg, moderate pulmonary hypertension, normal diastology for age. Cardiology aware and updated about arrhythmia following emesis about x2, continue medical management per discussion with them and avoid K > 4.5. (3) Acute Oliguric Renal Failure on CKD stage IV: Suspected secondary to acute sepsis induced ATN. Admission BUN/Cr 34/2.11, last noted 02/05/15 Cr 2.05, 06/13/18 BUN/Cr 59/2.31, HD initiated 06/07/18, R IJ access in place, 06/07/18 removal 1.7 L, 06/12/18 HD 4L, planned repeat HD 06/13/18. UOP decreased since day prior, but given HD 4L removal expected. Likely will not have HD 06/14/18, but possible UF only. (4) Hyperkalemia: Following admission K 5.8, improved following interventions, associated w/ MARIAN, 06/10/18 K 5.2-->06/13/18 K 4.1, continue to trend. (5) Chronic Anemia, Unclear Etiology: Hgb 7.4, admission Hgb 9.8, trending down since admission, acute on chronic renal presentation, 06/12/18 Hgb 8.1 with repeat 06/12/18 Hgb 8.1. Studies w/ Fe 55, TIBC 227, Fe Sat 24.2, Ferritin 577, Vitamin B12 939, Folate 19.30, + stool guiac. Consistent with AOCD. Will continue to trend HH. Will discuss with Surgery as may need to consider endoscopy evaluation outpatient. Nausea may be associated with gastritis. Continued PPI. (6) Diabetes mellitus type II, Uncontrolled: Intermittent hyperglycemia during admission with alteration of basal insulin, maintained initially on tube feeds, successfully extubated 06/12/18. Hemoglobin A1c 6.3%. Starting diet, currently clears with slow transition, will change to accu checks w/ ISS q ACHS, on scheduled lantus which may need to be decreased as improves. (7) Morbid Obesity: Weight loss and lifestyle changes will be encouraged, nutrition consulted. (8) Anxiety and Depression: Maintained on home citalopram regimen. (9) History of Tobacco use: Encourage continued cessation. (10) Hypertension: BP low normal, held. (11) Hyperlipidemia: Continued on home statin. (12) GERD: PPI. (13) PATRICK: Currently intubated, sedated. (14) DVT Prophylaxis: SCDs, renally dosed lovenox. Code Visit Inpatient E&M: 26320 [facility] L3
[2018-06-13] MEDS: Gabapentin 300 MG Capsule PO ×2 (08:23→16:14)
[2018-06-13] MEDS: predniSONE 20 MG Tablet 40 MG PO (08:23)
[2018-06-13] MEDS: NINTEDANIB ESYLATE 150 MG CAPSULE PO ×2 (08:25→20:50)
--- NOTE | 2018-06-13 09:52 | CASEMGMT ---
SW spoke with patient and her significant other. Patient's significant other gave SW the SNF list with 3 facilities circled. They chose [facility], [facility], and [facility]. SW told them [facility] only takes patient's on dialysis if family will transport and right now patient requires too much assist for family to transport. SW told them SW will work on this and keep them up to date. SW called [facility] with referrals. SW also faxed referrals. Christy ALEXANDRA BELLPERSON
[2018-06-13] MEDS: prednisoLONE eye drops (5 mL) 1 DROP OPTH.BTL 2 DRP LEFT EYE (09:55)
[2018-06-13] MEDS: Glycerin/Hypromellose/PEG400 15 ml Bottle 1 DRP RIGHT EYE ×2 (09:56→21:05)
[2018-06-13] MEDS: proMETHazine 25 MG/ML Syringe 6.25 MG IV (10:17)
[2018-06-13] MEDS: 0.9% NaCl Peripheral Flush Adult/Peds IV ×2 (10:18→13:27)
[2018-06-13] MEDS: Albumin Human 25% (100 mL) 25 GM/100 ML BAG IV ×2 (11:20→11:28)
[2018-06-13] MEDS: Insulin Lispro 100 UNIT/ML INSULN.PEN SC ×3 (11:29→21:09)
[2018-06-13 11:41] LABS: Bedside Glucose 155 mg/dL (70-110)
--- NOTE | 2018-06-13 11:44 | PN.RENAL_ITS ---
Patient Problems: Active and Suspected Problems Severe sepsis (Acute) Hyperkalemia (Acute) Metabolic acidosis (Acute) Subjective: extubated - Physical Exam HEENT: Atraumatic, PERRLA, EOMI, Normocephalic Neck: Supple, No JVD, Negative Carotid Bruits Lungs: Clear to auscultation, Normal air movement Cardiovascular: Regular rate, No murmurs Abdomen: Bowel Sounds Present, Soft, Non Tender Extremities: No edema, Capillary Refill Less than 3 Seconds Skin: No rashes, No breakdown Musculoskeletal: No Tenderness to Palpation of Joints or Extremities Vital Signs Temp Pulse Resp BP Pulse Ox 96.9 F L 71 12 140/66 H 98 06/13/18 08:00 06/13/18 08:00 06/13/18 08:00 06/13/18 08:00 06/13/18 08:00 Oxygen Flow Rate (L/min) 4 Oxygen Delivery Method Nasal Cannula Weight: 122.2 kg Body Mass Index (BMI) 51.5 Finger Stick Blood Glucose 383 Intake and Output for Last 24 Hours 06/11/18 06/12/18 06/13/18 23:59 23:59 23:59 Intake Total 2144 / 2144 1945.9 / 1945.9 490 / 490 Output Total 1075 / 1075 6325 / 6325 350 / 350 Balance 1069 / 1069 -4379.1 / -4379.1 140 / 140 Microbiology Past 72 Hours 06/06/18 14:40 Gram Stain - Final Sputum, Induced/Lukens Respiratory Culture - Final Sphingomonas paucimobilis 06/08/18 07:24 Gram Stain - Final Sputum, Tracheal Aspirate Respiratory Culture - Final Coag Negative Staph 06/10/18 06:50 Stool Occult Blood (EVA) - Final Stool Occult Blood Positive Laboratory Tests Past 24 Hrs 06/12/18 06/13/18 06/13/18 04:10 03:25 03:25 WBC 13.3 H RBC 2.62 L Hgb 8.1 L Hct 27.2 L MCV 103.8 H MCH 30.9 MCHC 29.8 L RDW 13.9 RDW Differential 51.3 H Plt Count 230 MPV 8.9 Immature Gran % (Auto) 1.400 H Neut % (Auto) 75.6 H Lymph % (Auto) 12.8 L Valencia % (Auto) 7.7 Eos % (Auto) 2.4 Baso % (Auto) 0.1 Absolute Neuts (auto) 10.1 H Absolute Lymphs (auto) 1.70 Total Counted Not Reportable Diff Path Review Reviewed Sodium 141 Potassium 4.1 Chloride 101 Carbon Dioxide 31.0 Anion Gap 9 BUN 59 H Creatinine 2.31 H Estim Creat Clear Calc 22.14 Est GFR (MDRD) Af Amer 27 L Est GFR (MDRD) Non-Af 23 L BUN/Creatinine Ratio 25.5 H Glucose 142 H Calcium 9.3 POC Glucose 06/13/18 06/13/18 06/13/18 11:26 05:18 01:20 POC Glucose 155 H 126 H 141 H 06/12/18 06/12/18 06/12/18 21:39 18:10 14:43 POC Glucose 177 H 144 H 218 H Medical Necessity - Tobacco Use Smoking Status: Former smoker Tobacco Use: Cigarettes Assessment/Plan All Active Problems Severe sepsis (Acute) Hyperkalemia (Acute) Metabolic acidosis (Acute) Tobacco use disorder (Resolved) Cocaine dependence, episodic (Resolved) 1-acute kidney injury on chronic kidney disease. Patient has chronic kidney disease stage IV. MARIAN is most probably from sepsis induced ATN. HD started last . Right IJ temporary hemodialysis access is in place. urine output is better. HD today will try for another 2-3 L albumin as needed for low BP will continue to assess daily for dialysis needs 2-hyperkalemia. better 3-Metabolic acidosis: better 4-acute respiratory failure due to ARDS/pneumonia. extubated today seen on HD
--- NOTE | 2018-06-13 12:53 | CASEMGMT ---
SW spoke with Oksana at [facility] and Beryl from [place]. [place] said they would be able to take patient. [facility] asked about a medication patient was on and they were checking out a few other items cost. will find out about medication and let [facility] know this information. Christy ALEXANDRA MSW
--- NOTE | 2018-06-13 13:01 | CASEMGMT ---
RN CM Note: Inquiry re: need for outpt dialysis. Not established yet but may need temporary acute dialysis. Per dialysis nurse- recommended waiting with referral until tomorrow as determination has not been made yet. -packet made, not sent to [facility] yet. Harrison RUIZN RN ACM
--- NOTE | 2018-06-13 13:10 | DIALYSIS ---
Pt tolerated 3.5hr tx with some cramping towards end of tx. Resolved w/ decrease in UF goal. Net UF -2400ml. See flow record for tx data.
[2018-06-13] MEDS: Heparin 10,000 UNITS/10 ML Vial IV (13:27)
[2018-06-13] MEDS: Polyethylene Glycol 3350 17 GM PACKET PO ×2 (13:28→21:12)
[2018-06-13] MEDS: Ensure Clear 120 ML Liquid PO ×2 (13:31→21:08)
[2018-06-13] MEDS: Citalopram 40 MG TABLET PO (13:31)
[2018-06-13] MEDS: Pantoprazole Sodium 40 MG Tablet PO (13:32)
--- NOTE | 2018-06-13 15:00 | CASEMGMT ---
NIKOLE let patient and her significant other know that it sounds like [facility] would be able to take her . NIKOLE told her that it also depends on dialysis. SW asked her if she would be able to take her Ofev medication as the shelter cannot get it from their pharmacy. She said she could. NIKOLE told them SW will keep them updated and will continue to follow. Christy ALEXANDRA MSW
--- NOTE | 2018-06-13 15:42 | CHAPLAIN ---
Type of Pastoral Visit ___ Initial Visit _x__ Follow-up Visit ___ On-call Visit ___ General Patient Visit ___ Spiritual Assessment ___ Family Conference ___ Bereavement ___ Rapid Response ___ Code Blue ___ Other (describe below) Pastoral Care Referral From _x__ Patient ___ Family ___ Nurse ___ Physician ___ Plaster Machine Operator ___ Health Care Manager ___ Other (describe below) Sacrament/Intervention _x__ Active listening ___ Anointing ___ Moravian ___ Bereavement ___ Communion ___ Renetta exploration ___ _x__ Life review _x__ Prayer ___ Reconciliation ___ Sacrament of Sick ___ Supportive presence ___ Wedding ___ Other (describe below) Pastoral Comments patient and fiancee are together in room in ICU prior to change to PCU; pt is sitting up and talking; pt and fiancee talk about getting and how happy they are in going forward in life; pt improvement is credited to answers to prayer and good care
[2018-06-13 16:35] LABS: Bedside Glucose 318 mg/dL (70-110)
[2018-06-13] MEDS: Cyclopentolate 1% 2 ML Bottle 1 DRP LEFT EYE (21:05)
[2018-06-13] MEDS: Atorvastatin Calcium 40 MG Tablet PO (21:12)
[2018-06-13 22:51] LABS: Bedside Glucose 219 mg/dL (70-110)
[2018-06-14] VITALS (15 sets, daily range): BP systolic 101–117; BP diastolic 56–85; PULSE 56–88; RESP 12–18; TEMP 36.4–37.1; O2SAT 93–97
[2018-06-14 03:36] LABS: Bedside Glucose 196 mg/dL (70-110)
[2018-06-14 05:02] LABS: Absolute Lymphocyte Count 2.15 X10^3/ul (0.83-4.51); Absolute Neutrophil Count 11.4 X10^3/uL (2.0-7.7); Basophil# 0.01 X10^3/uL; Basophil% 0.1 % (0-1); Eosinophil# 0.33 X10^3/uL; Eosinophils% 2.2 % (0-5); Hematocrit 28.7 % (37-47); Hemoglobin 8.8 g/dl (12.0-15.0); Lymphocyte # 2.15 X10^3/ul (4.0); Lymphocyte % 14.1 % (19-41); Mean Corp Hgb Conc 30.7 g/gl (32-36); Mean Corpuscular Hgb 30.6 pg (27.0-32.0); Mean Corpuscular Volume 99.7 fL (81-99); Mean Platelet Vol. 9.6 fl (6.2-12.0); Monocyte# 1.18 X10^3/uL; Monocyte% 7.8 % (0-10); Neutrophil # 11.38 X10^3/uL (2.7-7.7); Neutrophil % 74.8 % (47-70); Platelet Count 248 K/mm3 (150-450); RBC Distribution Width CV 13.9 % (11.6-14.6); RBC Distribution Width SD 48.6 fl (35.1-43.9); Red Blood Count 2.88 M/mm3 (4.2-5.4); White Blood Count 15.2 K/mm3 (4.4-11.0)
[2018-06-14 05:04] LABS: POSITIVE COUNT NO; POSITIVE DIFFERENTIAL NO; POSITIVE MORPHOLOGY NO
[2018-06-14] MEDS: Enoxaparin 30 MG/0.3 ML Syringe SC (05:05)
[2018-06-14 05:35] LABS: Anion Gap 13 (5-15); BUN 68 mg/dL (7-18); BUN/Creat Ratio 19.4 RATIO (10-20); Calcium,Total 9.5 mg/dL (8.5-10.1); Chloride 92 mmol/L (98-107); Creatinine, Serum 3.51 mg/dL (0.55-1.02); EST Glomerular Filtration Rate 14 mL/min (>60); Est Glom Filt Rate - Afr Amer 17 mL/min (>60); Estimated Creatinine Clearance 14.57 ml/min; Glucose 182 mg/dL (74-106); Potassium 3.7 mmol/L (3.5-5.1); Sodium Level 133 mmol/L (136-145)
[2018-06-14] MEDS: Ipratropium/Albuterol Sulfate 3 ML AMPUL.NEB INHALATION ×2 (06:58→19:40)
[2018-06-14 07:01] LABS: Bedside Glucose 177 mg/dL (70-110)
--- NOTE | 2018-06-14 07:46 | PN.CARD_ITS ---
Subjectve: Patient seen and evaluated. Appears to be doing much better now. Objective: Vital Signs Temp Pulse Resp BP Pulse Ox 98.8 F 82 18 101/67 96 06/14/18 03:15 06/14/18 07:18 06/14/18 07:18 06/14/18 03:15 06/14/18 07:18 Oxygen Flow Rate (L/min) 2 Oxygen Delivery Method Nasal Cannula Weight: 268 lb 1.314 oz Body Mass Index (BMI) 51.5 Finger Stick Blood Glucose 383 Intake and Output for Last 24 Hours 06/12/18 06/13/18 06/14/18 23:59 23:59 23:59 Intake Total 1945.9 / 1945.9 1190 / 1190 Output Total 6325 / 6325 2850 / 2850 80 / 80 Balance -4379.1 / -4379.1 -1660 / -1660 -80 / -80 General: Awake, Alert, Oriented x 3 HEENT: PERRL, EOMI, Sclera Non Icteric Neck: Supple, Good ROM, No Lymph Node Enlargement Lungs: Clear to auscultation Cardiovascular: Regular Rhythm, Normal S1, Normal S2, No Murmurs, No Rubs, No Gallops Vascular: No Carotid Bruits, Normal Femoral Pulses, Normal Radial Pulses, Normal Dorsalis Pedal Pulse, Normal Posterior Tibial Pulses Abdomen: Bowel Sounds Present, Soft, Non Tender, No HSM, No Organomegaly Extremities: No Cyanosis, No Clubbing, No edema Musculoskeletal: No Erythema Skin: No Rashes Lymphatic: No Lymph Node Enlargement Neurological: No Focal Motor or Sensory Deficit Psych/Mental Status: Appropriate 06/14/18 04:45: WBC 15.2 H, RBC 2.88 L, Hgb 8.8 L, Hct 28.7 L, MCV 99.7 H, MCH 30.6, MCHC 30.7 L, RDW 13.9, RDW Differential 48.6 H, Plt Count 248, MPV 9.6, Immature Gran % (Auto) 1.000 H, Neut % (Auto) 74.8 H, Lymph % (Auto) 14.1 L, Pitt % (Auto) 7.8, Eos % (Auto) 2.2, Baso % (Auto) 0.1, Absolute Neuts (auto) 11.4 H, Total Counted Not Reportable 06/14/18 04:45: Sodium 133 L, Potassium 3.7, Chloride 92 L, Carbon Dioxide 28.0, Anion Gap 13, BUN 68 H, Creatinine 3.51 H, Est GFR (MDRD) Af Amer 17 L, Est GFR (MDRD) Non-Af 14 L, BUN/Creatinine Ratio 19.4, Glucose 182 H, Calcium 9.5 Rhythm: EKG: ECHO: Stress Test: Cardiac Cath: PCI: CT Surgery: Holter monitor: EPS: PPM: CXR: Chest CT Scan: Medical Necessity - Tobacco Use Smoking Status: Former smoker Tobacco Use: Cigarettes Assessment/Plan 1. Junctional bradycardia * The etiology of the above is likely secondary to the elevated potassium. Patient was started on dialysis and her rhythm has normalized for normal sinus rhythm. She is maintaining a decent blood pressure. My recommendation would be to continue dialysis and protocols to keep her potassium less than 4.5. * * She did have a few junctional episodes as well as short runs of atrial fibrillation. My recommendation at this time is to continue to observe her. The exact etiology of the above is not clear but I do not think that is necessarily related to sick sinus syndrome. 2. Abnormal cardiac enzymes * She does have evidence of mildly abnormal cardiac enzymes. I suspect that the above may be on the basis of demand ischemia once again. Her ejection fraction is preserved at 65% with diastolic dysfunction. At this time I would suggest that we manage her with medical therapy. 3. Pulmonary hypertension * She does have evidence of pulmonary hypertension and will continue with her dialysis to see whether this would improve her pulmonary pressures. * Does have a history of pulmonary fibrosis and this may be playing a role. * * Overall her general condition has improved. We will continue to follow her and as an outpatient as well. * Thank you for allowing me to participate in the care of your patient. Please don't hesitate to call if any issues arise
[2018-06-14] MEDS: Insulin Lispro 100 UNIT/ML INSULN.PEN SC ×5 (07:53→22:15)
[2018-06-14] MEDS: Gabapentin 300 MG Capsule PO ×2 (07:54→17:16)
[2018-06-14] MEDS: predniSONE 20 MG Tablet PO (07:54)
[2018-06-14] MEDS: NINTEDANIB ESYLATE 150 MG CAPSULE PO ×2 (07:55→22:16)
[2018-06-14] MEDS: Glycerin/Hypromellose/PEG400 15 ml Bottle 1 DRP RIGHT EYE ×2 (08:50→22:16)
[2018-06-14] MEDS: prednisoLONE eye drops (5 mL) 1 DROP OPTH.BTL 2 DRP LEFT EYE (08:50)
[2018-06-14] MEDS: Polyethylene Glycol 3350 17 GM PACKET PO ×2 (08:52→22:17)
[2018-06-14] MEDS: Citalopram 40 MG TABLET PO (08:52)
[2018-06-14] MEDS: Pantoprazole Sodium 40 MG Tablet PO (08:52)
[2018-06-14] MEDS: Ensure Clear 120 ML Liquid PO ×3 (08:58→22:17)
--- NOTE | 2018-06-14 10:30 | CASEMGMT ---
Addendum entered by Venecia Morales 06/14/18 11:28: This RN CM received a call from Janet at [facility] stating that medical record has been created but there will be a delay in chair time because pt is acute and insurance needs to approve. She states that they have all needed paperwork at this time but will contact this RN CM if anything else is needed. Gonzalez NUÑEZ CM Original Note: Per Dr. Eldridge, referral to be faxed for outpt dialysis at [facility] at this time. Referral compiled and faxed to [facility] at this time. Gonzalez NUÑEZ CM
--- NOTE | 2018-06-14 10:32 | PN_ITS ---
Patient Problems: Active and Suspected Problems Severe sepsis (Acute) Hyperkalemia (Acute) Metabolic acidosis (Acute) Subjective: The patient was seen and examined at the bedside this morning. Events from the last 24 hours have been reviewed. The patient is currently afebrile, hemodynamically stable and maintaining appropriate oxygen saturations on 2 L/min via nasal cannula. The patient was once again dialyzed yesterday with 2.4 L of fluid removed. Objective: The patient's most recent lab work, culture data and imaging studies have all been personally reviewed. CTA chest dated June 06 revealed no evidence for pulmonary embolism, but did demonstrate bilateral pneumonia/ARDS. Surface echocardiogram revealed normal LV size and function with an ejection fraction of 65%. The RV was moderately dilated. Right ventricular systolic pressure was estimated to be 56 mmHg. Blood cultures have shown no growth to date. Respiratory viral panel was negative. Sputum culture was positive for alpha hemolytic Streptococcus and coag negative staph. - Physical Exam General: Alert, Cooperative, No apparent distress HEENT: Atraumatic, PERRLA, Normocephalic Oral: No Gingival or Mucosal Lesions/ Ulcerations Neck: Supple, No Nodes, Trachea Midline Lungs: No rhonchi, No wheeze, No rales, Diminished Cardiovascular: Regular rate, Regular Rhythm, Normal S1, Normal S2, No murmurs Abdomen: Bowel Sounds Present, Soft, Non Tender, Obese Extremities: No clubbing, No cyanosis, No edema Skin: No breakdown Musculoskeletal: No Tenderness to Palpation of Joints or Extremities Lymphatic: No Cervical, Supraclavicular, or Inguinal Adenopathy Neurological: Cranial nerves II-XII grossly intact, Neuro grossly intact Psych/Mental Status: Normal Affect, Appropriate Vital Signs Temp Pulse Resp BP Pulse Ox 36.7 C 70 18 116/63 93 06/14/18 08:45 06/14/18 08:45 06/14/18 08:45 06/14/18 08:45 06/14/18 08:45 Oxygen Flow Rate (L/min) 2 Oxygen Delivery Method Nasal Cannula Weight: 268 lb 1.314 oz Body Mass Index (BMI) 51.5 Finger Stick Blood Glucose 383 Intake and Output for Last 24 Hours 06/12/18 06/13/18 06/14/18 23:59 23:59 23:59 Intake Total 1945.9 / 1945.9 1190 / 1190 Output Total 6325 / 6325 2850 / 2850 80 / 80 Balance -4379.1 / -4379.1 -1660 / -1660 -80 / -80 Microbiology Past 72 Hours 06/06/18 14:40 Gram Stain - Final Sputum, Induced/Lukens Respiratory Culture - Final Sphingomonas paucimobilis Laboratory Tests Past 24 Hrs 06/14/18 06/14/18 04:45 04:45 WBC 15.2 H RBC 2.88 L Hgb 8.8 L Hct 28.7 L MCV 99.7 H MCH 30.6 MCHC 30.7 L RDW 13.9 RDW Differential 48.6 H Plt Count 248 MPV 9.6 Immature Gran % (Auto) 1.000 H Neut % (Auto) 74.8 H Lymph % (Auto) 14.1 L [place] % (Auto) 7.8 Eos % (Auto) 2.2 Baso % (Auto) 0.1 Absolute Neuts (auto) 11.4 H Absolute Lymphs (auto) 2.15 Total Counted Not Reportable Sodium 133 L Potassium 3.7 Chloride 92 L Carbon Dioxide 28.0 Anion Gap 13 BUN 68 H Creatinine 3.51 H Estim Creat Clear Calc 14.57 Est GFR (MDRD) Af Amer 17 L Est GFR (MDRD) Non-Af 14 L BUN/Creatinine Ratio 19.4 Glucose 182 H Calcium 9.5 POC Glucose 06/14/18 06/14/18 06/13/18 06:53 03:23 21:03 POC Glucose 177 H 196 H 219 H 06/13/18 06/13/18 16:11 11:26 POC Glucose 318 H 155 H Clinical Impression(s) from Imaging Studies Chest X-Ray 06/04/18 12:20 IMPRESSION: Pulmonary edema or bilateral pneumonia. Electronically Signed: Karena Hawk, at 12:38 EDT Tel , Service support , Chest CT 06/04/18 13:06 IMPRESSION: Chronic interstitial lung disease with superimposed bilateral patchy pneumonia. Electronically Signed: Karena Hawk, at 14:44 EDT Tel , Service support , Chest X-Ray 06/06/18 08:50 IMPRESSION: Increased diffuse bilateral pulmonary interstitial lung markings and alveolar disease, this may represent increasing pulmonary edema and/or worsening pneumonia. There is suggestion of small bilateral pleural effusions. Electronically Signed: Carmen Albert, at 9:34 EDT Tel , Service support , Chest CTA 06/06/18 10:50 IMPRESSION: No demonstrated pulmonary embolism or arterial dissection. Worsening bilateral pneumonia or ARDS. Electronically Signed: Karena Hawk, at 12:33 EDT Tel , Service support , Chest X-Ray 06/06/18 14:26 IMPRESSION: ET tube and enteric tube as above. Stable diffuse patchy airspace disease bilaterally Electronically Signed: Julito Staton DO at 16:32 EDT Tel , Service support , Chest X-Ray 06/07/18 12:49 IMPRESSION: Pulmonary edema. Electronically Signed: Karena Hawk, at 13:53 EDT Tel , Service support , KUB X-Ray 06/11/18 08:19 IMPRESSION: 1. Moderately limited study due to poor penetration secondary to patient habitus. 2. No evidence of obstruction. There is a loop of colon to the left of the pelvis. Question hernia versus displacement of abdominal contents left of the pelvis. Electronically Signed: George Lugo DO at 11:11 EDT Tel [phone], Service support , Medical Necessity - Tobacco Use Smoking Status: Former smoker Tobacco Use: Cigarettes Assessment/Plan All Active Problems Severe sepsis (Acute) Hyperkalemia (Acute) Metabolic acidosis (Acute) Tobacco use disorder (Resolved) Cocaine dependence, episodic (Resolved) RECOMMENDATIONS: 1. Continue prednisone with plans to wean by 10 mg every 3 days. 2. Continue bronchodilators as ordered. 3. Wean supplemental oxygen to maintain saturations at or above 90%. 4. Encourage incentive spirometer use and mobilize patient as tolerated. 5. Continue hemodialysis per nephrology recommendations. 6. Continue BiPAP therapy with naps and nightly. IMPRESSIONS: 1. Acute on chronic combined respiratory failure secondary to possible ARDS The patient has reported underlying IPF, for which she is currently prescribed Ofev by Dr. Olivia at [facility]. Therefore, the patient's decompensated respiratory status is likely multifactorial in etiology, with interstitial lung disease, pneumonia and a component of heart failure contributing. The patient was able to be successfully liberated from invasive mechanical ventilation on June 12. She has done well from a respiratory perspective following extubation. She is completed a treatment course of antibiotics at this time. We will plan to continue to wean her supplemental oxygen to maintain saturations at or above 90%. Encourage incentive spirometer use and mobilize patient as tolerated. The patient's prednisone will be decreased to 20 mg daily, with plans to wean by 10 mg every 3 days. 2. Heart failure with preserved ejection fraction/pulmonary hypertension As noted above, will continue attempts at volume optimization with hemodialysis per nephrology recommendations. Underlying pulmonary hypertension is likely related to the patient's interstitial lung disease. 3. Uncontrolled diabetes mellitus Continue Lantus and sliding scale and sling coverage. The patient's basal insulin regimen will be decreased today. 4. Acute on chronic kidney disease Nephrology is currently following. Etiology for kidney disease is felt to be secondary to ATN. Continue hemodialysis support as indicated. 5. Morbid obesity/CKD stage III/hypertension/hyperlipidemia/depression/GERD/history of tobacco dependency Complicates care, management, recovery and prognosis. Continue to hold nephrotoxic medications. Physical therapy to work with patient. Anticipate senior living need at the time of her discharge. This note was generated with [employer] dictation software. It may contain incorrect words, spelling, and punctuation that were not noted in checking the note before signing. DISPOSITION: Given the patient's lack of ongoing ICU needs, will sign off. Please call with any additional questions. Code Visit Inpatient E&M: 08765 Subs Hosp L2
--- NOTE | 2018-06-14 11:04 | PN.RENAL_ITS ---
Patient Problems: Active and Suspected Problems Severe sepsis (Acute) Hyperkalemia (Acute) Metabolic acidosis (Acute) Subjective: no new complaints breathing is normal - Physical Exam General: Alert, Oriented x3, Cooperative HEENT: Atraumatic, PERRLA, EOMI, Normocephalic Neck: Supple, No JVD, Negative Carotid Bruits Lungs: Clear to auscultation, Normal air movement Cardiovascular: Regular rate, No murmurs Abdomen: Bowel Sounds Present, Soft, Non Tender Extremities: No edema, Capillary Refill Less than 3 Seconds Skin: No rashes, No breakdown Musculoskeletal: No Tenderness to Palpation of Joints or Extremities Neurological: Cranial nerves II-XII grossly intact Psych/Mental Status: Normal Affect, Appropriate Vital Signs Temp Pulse Resp BP Pulse Ox 98.0 F 70 18 116/63 93 06/14/18 08:45 06/14/18 08:45 06/14/18 08:45 06/14/18 08:45 06/14/18 08:45 Oxygen Flow Rate (L/min) 2 Oxygen Delivery Method Nasal Cannula Weight: 121.6 kg Body Mass Index (BMI) 51.5 Finger Stick Blood Glucose 383 Intake and Output for Last 24 Hours 06/12/18 06/13/18 06/14/18 23:59 23:59 23:59 Intake Total 1945.9 / 1945.9 1190 / 1190 Output Total 6325 / 6325 2850 / 2850 80 / 80 Balance -4379.1 / -4379.1 -1660 / -1660 -80 / -80 Microbiology Past 72 Hours 06/06/18 14:40 Gram Stain - Final Sputum, Induced/Lukens Respiratory Culture - Final Sphingomonas paucimobilis Laboratory Tests Past 24 Hrs 06/14/18 06/14/18 04:45 04:45 WBC 15.2 H RBC 2.88 L Hgb 8.8 L Hct 28.7 L MCV 99.7 H MCH 30.6 MCHC 30.7 L RDW 13.9 RDW Differential 48.6 H Plt Count 248 MPV 9.6 Immature Gran % (Auto) 1.000 H Neut % (Auto) 74.8 H Lymph % (Auto) 14.1 L [place] % (Auto) 7.8 Eos % (Auto) 2.2 Baso % (Auto) 0.1 Absolute Neuts (auto) 11.4 H Absolute Lymphs (auto) 2.15 Total Counted Not Reportable Sodium 133 L Potassium 3.7 Chloride 92 L Carbon Dioxide 28.0 Anion Gap 13 BUN 68 H Creatinine 3.51 H Estim Creat Clear Calc 14.57 Est GFR (MDRD) Af Amer 17 L Est GFR (MDRD) Non-Af 14 L BUN/Creatinine Ratio 19.4 Glucose 182 H Calcium 9.5 POC Glucose 06/14/18 06/14/18 06/13/18 06:53 03:23 21:03 POC Glucose 177 H 196 H 219 H 06/13/18 06/13/18 16:11 11:26 POC Glucose 318 H 155 H Medical Necessity - Tobacco Use Smoking Status: Former smoker Tobacco Use: Cigarettes Assessment/Plan All Active Problems Severe sepsis (Acute) Hyperkalemia (Acute) Metabolic acidosis (Acute) Tobacco use disorder (Resolved) Cocaine dependence, episodic (Resolved) 1-acute kidney injury on chronic kidney disease. Patient has chronic kidney disease stage IV. MARIAN is most probably from sepsis induced ATN. HD started last . Right IJ temporary hemodialysis access is in place. urine output dropped yesterday, creatinine went up. no acute indications for HD today. may need dialysis tomorrow depending on numbers will watch creatinine through the weekend and decide on dialysis plans if she still needs it by next week, will change line to tunneled one CM to work to securing an outpatient spot just in case if she recovers we can cancel the spot d/w
--- NOTE | 2018-06-14 11:32 | CASEMGMT ---
NIKOLE spoke with patient and she decided she wants to go to [facility]. SW will notify [facility] and Joanh. Patient will be here through the weekend. Plan: [facility] when medically ready. Christy DE SOUZA
[2018-06-14 11:51] LABS: Bedside Glucose 385 mg/dL (70-110)
--- NOTE | 2018-06-14 12:48 | PCM.PN.HOSP ---
Patient Problems: Active and Suspected Problems Severe sepsis (Acute) Hyperkalemia (Acute) Metabolic acidosis (Acute) Subjective: Patient notes feeling well, doing very well since transition out of the ICU to the PCU. She is requesting diet transition she is currently eating a yogurt and requesting transition to ADA diet. She does note concerns about her blood sugars and states that she had been on much higher insulin outpatient but cannot give exact doses. Discussed that patient is allowed to advance diet as tolerated given no further abdominal discomfort and bouts of emesis. Also noted would increase her insulin regimen both short acting and long-acting given increased oral intake plan. Discussed recent labs and plans per cardiology, pulmonary, nephrology and patient understands that she will need to remain through the weekend for continued evaluation for dialysis needs. Patient denies fevers, chills, nausea, emesis, abdominal pain, chest pain or recurrent or worsened dyspnea. Objective: Physical Examination: General: awake, alert, oriented x 3 and cooperative, seated upright bedside chair, no acute distress, well-appearing, watching TV, eating yogurt. Skin: normal color, turgor, no icterus, cyanosis. HEENT: AT/NC, EOMI, PERRLA, MMM. Lungs: Improved breath sounds, diminished at bases, resolved rales, no wheezing currently, improved effort. Heart: Regular rate and rhythm; no gallop, rub audible. Abdomen: soft, morbidly obese, NTTP, ND, normal BS. Extremities: no cyanosis, clubbing, resolved BL LE edema. Neurological: patient awake, alert, oriented x 3; cognitive function intact; pupils equally reactive to light and accomodation; cranial nerves II-XII grossly normal, moving all 4 extremities, no focal deficits, strength improving, moderately globally decreased secondary to acute presentation. Psychiatric: affect appears normal, no acute evidence of depressive or anxiety feelings. Vitals/I&O's: Vital Signs Temp Pulse Resp BP Pulse Ox 98.0 F 88 18 116/63 93 06/14/18 08:45 06/14/18 11:00 06/14/18 08:45 06/14/18 08:45 06/14/18 08:45 Oxygen Flow Rate (L/min) 2 Oxygen Delivery Method Nasal Cannula Weight: 268 lb 1.314 oz Body Mass Index (BMI) 51.5 Finger Stick Blood Glucose 383 Intake and Output for Last 24 Hours 06/12/18 06/13/18 06/14/18 23:59 23:59 23:59 Intake Total 1945.9 / 1945.9 1190 / 1190 Output Total 6325 / 6325 2850 / 2850 155 / 155 Balance -4379.1 / -4379.1 -1660 / -1660 -155 / -155 Laboratory Results 06/13/18 16:11: POC Glucose 318 H 06/13/18 21:03: POC Glucose 219 H 06/14/18 03:23: POC Glucose 196 H 06/14/18 04:45: WBC 15.2 H, RBC 2.88 L, Hgb 8.8 L, Hct 28.7 L, MCV 99.7 H, MCH 30.6, MCHC 30.7 L, RDW 13.9, RDW Differential 48.6 H, Plt Count 248, MPV 9.6, Immature Gran % (Auto) 1.000 H, Neut % (Auto) 74.8 H, Lymph % (Auto) 14.1 L, [place] % (Auto) 7.8, Eos % (Auto) 2.2, Baso % (Auto) 0.1, Absolute Neuts (auto) 11.4 H, Absolute Lymphs (auto) 2.15, Total Counted Not Reportable 06/14/18 04:45: Sodium 133 L, Potassium 3.7, Chloride 92 L, Carbon Dioxide 28.0, Anion Gap 13, BUN 68 H, Creatinine 3.51 H, Estim Creat Clear Calc 14.57, Est GFR (MDRD) Af Amer 17 L, Est GFR (MDRD) Non-Af 14 L, BUN/Creatinine Ratio 19.4, Glucose 182 H, Calcium 9.5 06/14/18 06:53: POC Glucose 177 H 06/14/18 11:40: POC Glucose 385 H Current Medications Acetaminophen (Tylenol) 650 mg PO Q6H PRN PRN PRN Reason: fever over 100.4 or pain Albuterol Sulfate (Ventolin Aerosols) 2.5 mg INHALATION Q2H PRN PRN PRN Reason: SHORTNESS OF BREATH Last Admin: 06/06/18 05:07 Dose: 2.5 mg Albuterol/Ipratropium (Duoneb) 3 ml INHALATION Q4HWA.RT DARIO Last Admin: 06/14/18 11:07 Dose: Not Given Atorvastatin Calcium (Lipitor) 40 mg PO QHS [facility] Last Admin: 06/13/18 21:12 Dose: 40 mg Chlorhexidine Gluconate () 1 each TOPICAL DAILY [facility] Last Admin: 06/14/18 09:00 Dose: Not Given Citalopram Hydrobromide (Celexa) 40 mg PO DAILY [facility] Last Admin: 06/14/18 08:52 Dose: 40 mg Cyclopentolate HCl (Cyclogyl) 1 drop LEFT EYE QHS [facility] Last Admin: 06/13/18 21:05 Dose: 1 drop Dextrose (D50w Syringe) 0 gm IV X1 PRN; Protocol PRN Reason: Hypoglycemia Enoxaparin Sodium (Lovenox) 30 mg SC DAILY@0600 [facility] Last Admin: 06/14/18 05:05 Dose: 30 mg [facility]) [facility] Last Admin: 06/14/18 07:54 Dose: 300 mg Glucagon () 1 mg IM .X1 PRN PRN Reason: Hypoglycemia Heparin Sodium (Porcine) () 2,500 units IV UD PRN PRN Reason: HEPARIN FLUSH Last Admin: 06/07/18 12:00 Dose: 2,500 units Insulin Glargine (Lantus (Bkc)) 20 units SC [facility] Last Admin: 06/14/18 11:44 Dose: 20 u Insulin Human Lispro (Humalog Kwikpen (Bkc)) 0 unit SC ACHS [facility]; Protocol Last Admin: 06/14/18 11:44 Dose: 14 u Nutritional Formula (Lactose Free) (Ensure Clear) 120 ml PO 4X/DAY [facility] Last Admin: 06/14/18 08:58 Dose: 120 ml Ondansetron HCl (Zofran) 4 mg IV Q6H PRN PRN PRN Reason: NAUSEA/VOMITING Last Admin: 06/13/18 13:27 Dose: 4 mg Pantoprazole Sodium (Protonix) 40 mg PO DAILY [facility] Last Admin: 06/14/18 08:52 Dose: 40 mg Polyethylene Glycol (Miralax) 17 gm PO BID [facility] Last Admin: 06/14/18 08:52 Dose: 17 gm Prednisolone Acetate (Pred Forte Eye Drops (5 Ml)) 2 drop LEFT EYE DAILY [facility] Last Admin: 06/14/18 08:50 Dose: 2 drop Prednisone () 20 mg PO DAILY@0800 DARIO Last Admin: 06/14/18 07:54 Dose: 20 mg Promethazine HCl (Phenergan) 6.25 mg IV Q4H PRN PRN PRN Reason: NAUSEA/VOMITING Last Admin: 06/13/18 10:17 Dose: 6.25 mg Senna/Docusate Sodium (Senokot-S, Jade-Colace) 2 tablet PO DAILY PRN PRN PRN Reason: CONSTIPATION Sodium Chloride () 5 - 15 ml IV UD PRN PRN Reason: SALINE FLUSH Last Admin: 06/13/18 13:27 Dose: 10 ml Sodium Chloride () 10 ml IV UD PRN PRN Reason: Dialysis Catheter Flush Sodium Chloride () 10 - 40 ml IV UD PRN PRN Reason: MULTILUMEN/HICMAN CATH FLUSH Last Admin: 06/14/18 04:48 Dose: 20 ml Medical Necessity - Tobacco Use Smoking Status: Former smoker Tobacco Use: Cigarettes Assessment/Plan All Active Problems Severe sepsis (Acute) Hyperkalemia (Acute) Metabolic acidosis (Acute) Tobacco use disorder (Resolved) Cocaine dependence, episodic (Resolved) The patient is a 63 y/o F w/ PMHx: PATRICK, Chronic Hypoxic Respiratory Failure, Pulmonary Fibrosis, Diabetes mellitus type II, CKD stage IV, Morbid Obesity, Tobacco use, Depression and Anxiety, History Cocaine Abuse, HTN, HLD who presents to the [facility] ED on 06/04/18 with history of worsening dyspnea x 2 weeks with intermittent productive cough, no fevers or chills but recent URI. (1) Acute Sepsis secondary to Acute on Chronic Hypoxic Respiratory Failure, Multifactorial, Possible ARDS, ? BL Pneumonia, ? Acute on Chronic COPD Exacerbation complicated by Pulmonary HTN: Intubated, sedated, MARIAN as noted concurrent, Acute CHF exacerbation concurrently, CXR w/ ? BL PNA also, continue ATC duonebs, PRN albuterol, maintained on IV solumedrol-->prednisone, maintained on IV Rocephin and completed Azithromycin, Coag neg staph and alpha hemolytic strep sputum cultures, negative respiratory panel, negative urine antigens. Bld cx x 2 obtained in the ED with NGTD. 06/12/18 successful SBT and extubation. Continued HD per Nephrology direction w/ session 06/12/18 4L, planned repeat 06/13/18 session 3L removal. May need ongoing HD, pending repeat functions. CM working on possible outpatient HD position. Transitioned 06/13/18 to PCU without any issue. PT, OT, CM consulted, per discussions with Nephrology will remain through weekend to closely monitor renal function. (2) Acute on Chronic Diastolic CHF Exacerbation with ? Cor Pulmonale w/ Junctional Rhythm, Possible transient PAF with indeterminate cardiac enzymes: Cardiology consulted, junctional bradycardia felt likely secondary to hyperkalemia, following HD normalized to SR, recommendation to avoid K > 4.5, discontinuation of patient losartan, unresponsive to diuretic therapy, HD started on 06/07/18, maintained on statin, not on ASA nor BB, secondary to worsening anemia and low normal BPs. Planned likely 06/12/18 repeat HD. Episode 06/11/18 AM as noted emesis x 2, transient appearance atrial fibrillation, return to bradycardia then junctional. Cardiology updated. Cardiac enzymes obtained w/ 0.496-->0.527-->0.360. Recent 06/04/18 ECHO w/ EF 65%, moderately dilated RV, moderately enlarged LA, moderately enlarged RA, trivial MDI, RVSP 56 mmHg, moderate pulmonary hypertension, normal diastology for age. Cardiology aware and updated about arrhythmia following emesis about x2, continue medical management per discussion with them and avoid K > 4.5. (3) Acute Oliguric Renal Failure on CKD stage IV: Suspected secondary to acute sepsis induced ATN. Admission BUN/Cr 34/2.11, last noted 02/05/15 Cr 2.05, 06/13/18 BUN/Cr 59/2.31-->06/14/18 BUN/Cr 68/3.51, HD initiated 06/07/18, R IJ access in place, 06/07/18 removal 1.7 L, 06/12/18 HD 4L, repeat HD 06/13/18 3L removal. UOP decreased, expected given HD. Worsened renal function, discussed with nephrology, no indications for HD today, possibly need for dialysis tomorrow pending on repeat BMP in a.m. with continued plan for creatinine monitoring over the weekend to decide on need for dialysis possibly in the future although likely short-term. Case management aware and working on outpatient spot in case she does need this and does not recover. (4) Hyperkalemia: Following admission K 5.8, improved following interventions, associated w/ MARIAN, 06/10/18 K 5.2-->06/14/18 K 3.7, continue to trend. (5) Chronic Anemia, Unclear Etiology: Hgb 7.4, admission Hgb 9.8, trending down since admission, acute on chronic renal presentation, 06/12/18 Hgb 8.1 with repeat 06/14/18 Hgb 8.8, stable. Studies w/ Fe 55, TIBC 227, Fe Sat 24.2, Ferritin 577, Vitamin B12 939, Folate 19.30, + stool guiac. Consistent with AOCD. Given stable Hgb will plan upon discharge, referral to Surgery outpatient for consideration endoscopy evaluation outpatient. Nausea may be associated with gastritis. Continued PPI. (6) Diabetes mellitus type II, Uncontrolled: Intermittent hyperglycemia during admission with alteration of basal insulin, maintained initially on tube feeds, successfully extubated 06/12/18. Hemoglobin A1c 6.3%. 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 Currently blood sugars have been elevated 200-300 range. Will broaden to scheduled short-acting with meals, continue accu checks w/ ISS q ACHS, increased scheduled Lantus although again sai that likely stress response given hemoglobin A1c levels with possible need to de-escalate once clinically improving. (7) Morbid Obesity: Weight loss and lifestyle changes will be encouraged, nutrition consulted following. (8) Anxiety and Depression: Maintained on home citalopram regimen. (9) History of Tobacco use: Encourage continued cessation. (10) Hypertension: BP low normal, held. (11) Hyperlipidemia: Continued on home statin. (12) GERD: PPI. (13) PATRICK: Currently intubated, sedated. (14) DVT Prophylaxis: SCDs, renally dosed lovenox. Code Visit Inpatient E&M: 34288 Subs Hosp L2
--- NOTE | 2018-06-14 12:53 | PN_ITS ---
Patient Problems: Active and Suspected Problems Severe sepsis (Acute) Hyperkalemia (Acute) Metabolic acidosis (Acute) Subjective: Patient notes feeling well, doing very well since transition out of the ICU to the PCU. She is requesting diet transition she is currently eating a yogurt and requesting transition to ADA diet. She does note concerns about her blood sugars and states that she had been on much higher insulin outpatient but cannot give exact doses. Discussed that patient is allowed to advance diet as tolerated given no further abdominal discomfort and bouts of emesis. Also noted would increase her insulin regimen both short acting and long-acting given increased oral intake plan. Discussed recent labs and plans per cardiology, pulmonary, nephrology and patient understands that she will need to remain through the weekend for continued evaluation for dialysis needs. Patient denies fevers, chills, nausea, emesis, abdominal pain, chest pain or recurrent or worsened dyspnea. Objective: Physical Examination: General: awake, alert, oriented x 3 and cooperative, seated upright bedside chair, no acute distress, well-appearing, watching TV, eating yogurt. Skin: normal color, turgor, no icterus, cyanosis. HEENT: AT/NC, EOMI, PERRLA, MMM. Lungs: Improved breath sounds, diminished at bases, resolved rales, no wheezing currently, improved effort. Heart: Regular rate and rhythm; no gallop, rub audible. Abdomen: soft, morbidly obese, NTTP, ND, normal BS. Extremities: no cyanosis, clubbing, resolved BL LE edema. Neurological: patient awake, alert, oriented x 3; cognitive function intact; pupils equally reactive to light and accomodation; cranial nerves II-XII grossly normal, moving all 4 extremities, no focal deficits, strength improving, moderately globally decreased secondary to acute presentation. Psychiatric: affect appears normal, no acute evidence of depressive or anxiety feelings. Vitals/I&O's: Vital Signs Temp Pulse Resp BP Pulse Ox 98.0 F 88 18 116/63 93 06/14/18 08:45 06/14/18 11:00 06/14/18 08:45 06/14/18 08:45 06/14/18 08:45 Oxygen Flow Rate (L/min) 2 Oxygen Delivery Method Nasal Cannula Weight: 268 lb 1.314 oz Body Mass Index (BMI) 51.5 Finger Stick Blood Glucose 383 Intake and Output for Last 24 Hours 06/12/18 06/13/18 06/14/18 23:59 23:59 23:59 Intake Total 1945.9 / 1945.9 1190 / 1190 Output Total 6325 / 6325 2850 / 2850 155 / 155 Balance -4379.1 / -4379.1 -1660 / -1660 -155 / -155 Laboratory Results 06/13/18 16:11: POC Glucose 318 H 06/13/18 21:03: POC Glucose 219 H 06/14/18 03:23: POC Glucose 196 H 06/14/18 04:45: WBC 15.2 H, RBC 2.88 L, Hgb 8.8 L, Hct 28.7 L, MCV 99.7 H, MCH 30.6, MCHC 30.7 L, RDW 13.9, RDW Differential 48.6 H, Plt Count 248, MPV 9.6, Immature Gran % (Auto) 1.000 H, Neut % (Auto) 74.8 H, Lymph % (Auto) 14.1 L, [place] % (Auto) 7.8, Eos % (Auto) 2.2, Baso % (Auto) 0.1, Absolute Neuts (auto) 11.4 H, Absolute Lymphs (auto) 2.15, Total Counted Not Reportable 06/14/18 04:45: Sodium 133 L, Potassium 3.7, Chloride 92 L, Carbon Dioxide 28.0, Anion Gap 13, BUN 68 H, Creatinine 3.51 H, Estim Creat Clear Calc 14.57, Est GFR (MDRD) Af Amer 17 L, Est GFR (MDRD) Non-Af 14 L, BUN/Creatinine Ratio 19.4, Glucose 182 H, Calcium 9.5 06/14/18 06:53: POC Glucose 177 H 06/14/18 11:40: POC Glucose 385 H Current Medications Acetaminophen (Tylenol) 650 mg PO Q6H PRN PRN PRN Reason: fever over 100.4 or pain Albuterol Sulfate (Ventolin Aerosols) 2.5 mg INHALATION Q2H PRN PRN PRN Reason: SHORTNESS OF BREATH Last Admin: 06/06/18 05:07 Dose: 2.5 mg Albuterol/Ipratropium (Duoneb) 3 ml INHALATION Q4HWA.RT DARIO Last Admin: 06/14/18 11:07 Dose: Not Given Atorvastatin Calcium (Lipitor) 40 mg PO QHS [facility] Last Admin: 06/13/18 21:12 Dose: 40 mg Chlorhexidine Gluconate () 1 each TOPICAL DAILY [facility] Last Admin: 06/14/18 09:00 Dose: Not Given Citalopram Hydrobromide (Celexa) 40 mg PO DAILY [facility] Last Admin: 06/14/18 08:52 Dose: 40 mg Cyclopentolate HCl (Cyclogyl) 1 drop LEFT EYE QHS [facility] Last Admin: 06/13/18 21:05 Dose: 1 drop Dextrose (D50w Syringe) 0 gm IV X1 PRN; Protocol PRN Reason: Hypoglycemia Enoxaparin Sodium (Lovenox) 30 mg SC DAILY@0600 [facility] Last Admin: 06/14/18 05:05 Dose: 30 mg Gabap[facility] ([facility]in) [facility] Last Admin: 06/14/18 07:54 Dose: 300 mg Glucagon () 1 mg IM .X1 PRN PRN Reason: Hypoglycemia Heparin Sodium (Porcine) () 2,500 units IV UD PRN PRN Reason: HEPARIN FLUSH Last Admin: 06/07/18 12:00 Dose: 2,500 units Insulin Glargine (Lantus (Bkc)) 20 units SC [facility] Last Admin: 06/14/18 11:44 Dose: 20 u Insulin Human Lispro (Humalog Kwikpen (Bkc)) 0 unit SC ACHS [facility]; Protocol Last Admin: 06/14/18 11:44 Dose: 14 u Nutritional Formula (Lactose Free) (Ensure Clear) 120 ml PO 4X/DAY [facility] Last Admin: 06/14/18 08:58 Dose: 120 ml Ondansetron HCl (Zofran) 4 mg IV Q6H PRN PRN PRN Reason: NAUSEA/VOMITING Last Admin: 06/13/18 13:27 Dose: 4 mg Pantoprazole Sodium (Protonix) 40 mg PO DAILY [facility] Last Admin: 06/14/18 08:52 Dose: 40 mg Polyethylene Glycol (Miralax) 17 gm PO BID [facility] Last Admin: 06/14/18 08:52 Dose: 17 gm Prednisolone Acetate (Pred Forte Eye Drops (5 Ml)) 2 drop LEFT EYE DAILY [facility] Last Admin: 06/14/18 08:50 Dose: 2 drop Prednisone () 20 mg PO DAILY@0800 DARIO Last Admin: 06/14/18 07:54 Dose: 20 mg Promethazine HCl (Phenergan) 6.25 mg IV Q4H PRN PRN PRN Reason: NAUSEA/VOMITING Last Admin: 06/13/18 10:17 Dose: 6.25 mg Senna/Docusate Sodium (Senokot-S, Jade-Colace) 2 tablet PO DAILY PRN PRN PRN Reason: CONSTIPATION Sodium Chloride () 5 - 15 ml IV UD PRN PRN Reason: SALINE FLUSH Last Admin: 06/13/18 13:27 Dose: 10 ml Sodium Chloride () 10 ml IV UD PRN PRN Reason: Dialysis Catheter Flush Sodium Chloride () 10 - 40 ml IV UD PRN PRN Reason: MULTILUMEN/HICMAN CATH FLUSH Last Admin: 06/14/18 04:48 Dose: 20 ml Medical Necessity - Tobacco Use Smoking Status: Former smoker Tobacco Use: Cigarettes Assessment/Plan All Active Problems Severe sepsis (Acute) Hyperkalemia (Acute) Metabolic acidosis (Acute) Tobacco use disorder (Resolved) Cocaine dependence, episodic (Resolved) The patient is a 63 y/o F w/ PMHx: PATRICK, Chronic Hypoxic Respiratory Failure, Pulmonary Fibrosis, Diabetes mellitus type II, CKD stage IV, Morbid Obesity, Tobacco use, Depression and Anxiety, History Cocaine Abuse, HTN, HLD who presents to the [facility] ED on 06/04/18 with history of worsening dyspnea x 2 weeks with intermittent productive cough, no fevers or chills but recent URI. (1) Acute Sepsis secondary to Acute on Chronic Hypoxic Respiratory Failure, Multifactorial, Possible ARDS, ? BL Pneumonia, ? Acute on Chronic COPD Exacerbation complicated by Pulmonary HTN: Intubated, sedated, MARIAN as noted concurrent, Acute CHF exacerbation concurrently, CXR w/ ? BL PNA also, continue ATC duonebs, PRN albuterol, maintained on IV solumedrol-->prednisone, maintained on IV Rocephin and completed Azithromycin, Coag neg staph and alpha hemolytic strep sputum cultures, negative respiratory panel, negative urine antigens. Bld cx x 2 obtained in the ED with NGTD. 06/12/18 successful SBT and extubation. Continued HD per Nephrology direction w/ session 06/12/18 4L, planned repeat 06/13/18 session 3L removal. May need ongoing HD, pending repeat functions. CM working on possible outpatient HD position. Transitioned 06/13/18 to PCU without any issue. PT, OT, CM consulted, per discussions with Nephrology will remain through weekend to closely monitor renal function. (2) Acute on Chronic Diastolic CHF Exacerbation with ? Cor Pulmonale w/ Junctional Rhythm, Possible transient PAF with indeterminate cardiac enzymes: Cardiology consulted, junctional bradycardia felt likely secondary to hyperkalemia, following HD normalized to SR, recommendation to avoid K > 4.5, discontinuation of patient losartan, unresponsive to diuretic therapy, HD started on 06/07/18, maintained on statin, not on ASA nor BB, secondary to worsening anemia and low normal BPs. Planned likely 06/12/18 repeat HD. Episode 06/11/18 AM as noted emesis x 2, transient appearance atrial fibrillation, return to bradycardia then junctional. Cardiology updated. Cardiac enzymes obtained w/ 0.496-->0.527-->0.360. Recent 06/04/18 ECHO w/ EF 65%, moderately dilated RV, moderately enlarged LA, moderately enlarged RA, trivial MDI, RVSP 56 mmHg, moderate pulmonary hypertension, normal diastology for age. Cardiology aware and updated about arrhythmia following emesis about x2, continue medical management per discussion with them and avoid K > 4.5. (3) Acute Oliguric Renal Failure on CKD stage IV: Suspected secondary to acute s epsis induced ATN. Admission BUN/Cr 34/2.11, last noted 02/05/15 Cr 2.05, 06/13/18 BUN/Cr 59/2.31-->06/14/18 BUN/Cr 68/3.51, HD initiated 06/07/18, R IJ access in place, 06/07/18 removal 1.7 L, 06/12/18 HD 4L, repeat HD 06/13/18 3L removal. UOP decreased, expected given HD. Worsened renal function, discussed with nephrology, no indications for HD today, possibly need for dialysis tomorrow pending on repeat BMP in a.m. with continued plan for creatinine monitoring over the weekend to decide on need for dialysis possibly in the future although likely short-term. Case management aware and working on o utpatient spot in case she does need this and does not recover. (4) Hyperkalemia: Following admission K 5.8, improved following interventions, associated w/ MARIAN, 06/10/18 K 5.2-->06/14/18 K 3.7, continue to trend. (5) Chronic Anemia, Unclear Etiology: Hgb 7.4, admission Hgb 9.8, trending down since admission, acute on chronic renal presentation, 06/12/18 Hgb 8.1 with repeat 06/14/18 Hgb 8.8, stable. Studies w/ Fe 55, TIBC 227, Fe Sat 24.2, Ferritin 577, Vitamin B12 939, Folate 19.30, + stool guiac. Consistent with AOCD. Given stable Hgb will plan upon discharge, referral to Surgery outpatient for consideration endoscopy evaluation outpatient. Nausea may be associated with gastritis. Continued PPI. (6) Diabetes mellitus type II, Uncontrolled: Intermittent hyperglycemia during admission with alteration of basal insulin, maintained initially on tube feeds, successfully extubated 06/12/18. Hemoglobin A1c 6.3%. Patient notes that outpatient her blood sugars have been well controlled and she has been on halfway insulin therapy but is unable to give exact doses. Currently blood sugars have been elevated 200-300 range. Will broaden to scheduled short-acting with meals, continue accu checks w/ ISS q ACHS, increased scheduled Lantus although again sai that likely stress response given hemoglobin A1c levels with possible need to de-escalate once clinically improving. (7) Morbid Obesity: Weight loss and lifestyle changes will be encouraged, nutrition consulted following. (8) Anxiety and Depression: Maintained on home citalopram regimen. (9) History of Tobacco use: Encourage continued cessation. (10) Hypertension: BP low normal, held. (11) Hyperlipidemia: Continued on home statin. (12) GERD: PPI. (13) PATRICK: Currently intubated, sedated. (14) DVT Prophylaxis: SCDs, renally dosed lovenox. Code Visit Inpatient E&M: 43943 Subs Hosp L2
[2018-06-14] MEDS: Senna/Docusate Sodium 1 Tablet 2 TABLET PO (14:15)
--- NOTE | 2018-06-14 15:14 | CASEMGMT ---
Pt/ updated on [facility] referral at this time, voice understanding at this time and voice no further questions/concerns/needs at this time. Gonzalez NUÑEZ CM
[2018-06-14 16:21] LABS: Bedside Glucose 337 mg/dL (70-110)
[2018-06-14] MEDS: MELATONIN 3 MG TABLET PO (22:14)
[2018-06-14] MEDS: Atorvastatin Calcium 40 MG Tablet PO (22:14)
[2018-06-14] MEDS: Cyclopentolate 1% 2 ML Bottle 1 DRP LEFT EYE (22:16)
[2018-06-14 22:41] LABS: Bedside Glucose 335 mg/dL (70-110)
[2018-06-15] VITALS (19 sets, daily range): BP systolic 114–157; BP diastolic 48–94; PULSE 45–100; RESP 16–24; TEMP 36.2–36.9; O2SAT 94–98
[2018-06-15] MEDS: Enoxaparin 30 MG/0.3 ML Syringe SC (05:21)
[2018-06-15 05:41] LABS: Absolute Neutrophil Count 10.5 X10^3/uL (2.0-7.7); Eosinophil# 0.38 X10^3/uL; Eosinophils% 2.5 % (0-5); Hematocrit 27.8 % (37-47); Lymphocyte % 20.2 % (19-41); Mean Corp Hgb Conc 32.4 g/gl (32-36); Mean Corpuscular Hgb 30.4 pg (27.0-32.0); Mean Corpuscular Volume 93.9 fL (81-99); Mean Platelet Vol. 9.8 fl (6.2-12.0); Monocyte# 1.22 X10^3/uL; Neutrophil # 10.51 X10^3/uL (2.7-7.7); Neutrophil % 68.6 % (47-70); Platelet Count 242 K/mm3 (150-450); RBC Distribution Width CV 13.8 % (11.6-14.6); RBC Distribution Width SD 45.1 fl (35.1-43.9); Red Blood Count 2.96 M/mm3 (4.2-5.4); White Blood Count 15.3 K/mm3 (4.4-11.0)
[2018-06-15 05:42] LABS: POSITIVE COUNT NO; POSITIVE DIFFERENTIAL NO; POSITIVE MORPHOLOGY NO
[2018-06-15 05:53] LABS: Anion Gap 19 (5-15); BUN 103 mg/dL (7-18); BUN/Creat Ratio 21.4 RATIO (10-20); Calcium,Total 9.2 mg/dL (8.5-10.1); Chloride 84 mmol/L (98-107); Creatinine, Serum 4.82 mg/dL (0.55-1.02); EST Glomerular Filtration Rate 10 mL/min (>60); Est Glom Filt Rate - Afr Amer 12 mL/min (>60); Estimated Creatinine Clearance 10.61 ml/min; Glucose 235 mg/dL (74-106); Potassium 4.1 mmol/L (3.5-5.1); Sodium Level 127 mmol/L (136-145)
[2018-06-15 06:51] LABS: Bedside Glucose 226 mg/dL (70-110)
[2018-06-15] MEDS: Ipratropium/Albuterol Sulfate 3 ML AMPUL.NEB INHALATION ×2 (07:21→20:53)
--- NOTE | 2018-06-15 07:33 | PCM.PN.HOSP ---
Patient Problems: Active and Suspected Problems Severe sepsis (Acute) Hyperkalemia (Acute) Metabolic acidosis (Acute) Subjective: Patient with no acute events overnight per self and per nursing report. Patient continues to improve daily, tolerating therapies more. Today Basurto catheter was removed per nursing staff and patient insistence. Pending nephrology evaluation but given worsening renal function will likely need more dialysis and again discussed with patient and family that may need dialysis outpatient as well. Patient denies fevers, chills, nausea, emesis, abdominal pain, chest pain or dyspnea. Objective: Physical Examination: General: awake, alert, oriented x 3 and cooperative, seated upright bedside chair, no acute distress, well-appearing, feeling well she notes. Skin: normal color, turgor, no icterus, cyanosis. HEENT: AT/NC, EOMI, PERRLA, MMM, BL neck access in place. Lungs: Improved breath sounds, diminished at bases, normalized effort, no rales, rhonchi or wheezing. Heart: Regular rate and rhythm; no gallop, rub audible. Abdomen: soft, morbidly obese, NTTP, ND, normal BS. Extremities: no cyanosis, clubbing, resolved BL LE edema. Neurological: patient awake, alert, oriented x 3; cognitive function intact; pupils equally reactive to light and accomodation; cranial nerves II-XII grossly normal, moving all 4 extremities, no focal deficits, strength improving, moderately globally decreased. Psychiatric: affect appears normal, no acute evidence of depressive or anxiety feelings. Vitals/I&O's: Vital Signs Temp Pulse Resp BP Pulse Ox 98.1 F 45 L 16 116/55 L 95 06/15/18 02:45 06/15/18 03:27 06/15/18 02:45 06/15/18 02:45 06/15/18 02:45 Oxygen Flow Rate (L/min) 2 Oxygen Delivery Method Nasal Cannula Weight: 276 lb 14.409 oz Body Mass Index (BMI) 51.5 Finger Stick Blood Glucose 383 Intake and Output for Last 24 Hours 06/13/18 06/14/18 06/15/18 23:59 23:59 23:59 Intake Total 1190 / 1190 600 / 600 240 / 240 Output Total 2850 / 2850 255 / 255 300 / 300 Balance -1660 / -1660 345 / 345 -60 / -60 Laboratory Results 06/14/18 11:40: POC Glucose 385 H 06/14/18 16:06: POC Glucose 337 H 06/14/18 22:12: POC Glucose 335 H 06/15/18 05:30: WBC 15.3 H, RBC 2.96 L, Hgb 9.0 L, Hct 27.8 L, MCV 93.9, MCH 30.4, MCHC 32.4, RDW 13.8, RDW Differential 45.1 H, Plt Count 242, MPV 9.8, Immature Gran % (Auto) 0.700, Neut % (Auto) 68.6, Lymph % (Auto) 20.2, [place] % (Auto) 8.0, Eos % (Auto) 2.5, Baso % (Auto) 0.0, Absolute Neuts (auto) 10.5 H, Absolute Lymphs (auto) 3.10, Total Counted Not Reportable 06/15/18 05:30: Sodium 127 L, Potassium 4.1, Chloride 84 L, Carbon Dioxide 24.0, Anion Gap 19 H, BUN 103 H*, Creatinine 4.82 H, Estim Creat Clear Calc 10.61, Est GFR (MDRD) Af Amer 12 L, Est GFR (MDRD) Non-Af 10 L, BUN/Creatinine Ratio 21.4 H, Glucose 235 H, Calcium 9.2 06/15/18 06:41: POC Glucose 226 H Current Medications Acetaminophen (Tylenol) 650 mg PO Q6H PRN PRN PRN Reason: fever over 100.4 or pain Albuterol Sulfate (Ventolin Aerosols) 2.5 mg INHALATION Q2H PRN PRN PRN Reason: SHORTNESS OF BREATH Last Admin: 06/06/18 05:07 Dose: 2.5 mg Albuterol/Ipratropium (Duoneb) 3 ml INHALATION Q4HWA.RT [facility] Last Admin: 06/15/18 07:21 Dose: 3 ml Atorvastatin Calcium (Lipitor) 40 mg PO QHS [facility] Last Admin: 06/14/18 22:14 Dose: 40 mg Chlorhexidine Gluconate () 1 each TOPICAL DAILY [facility] Last Admin: 06/14/18 09:00 Dose: Not Given Citalopram Hydrobromide (Celexa) 40 mg PO DAILY [facility] Last Admin: 06/14/18 08:52 Dose: 40 mg Cyclopentolate HCl (Cyclogyl) 1 drop LEFT EYE QHS [facility] Last Admin: 06/14/18 22:16 Dose: 1 drop Dextrose (D50w Syringe) 0 gm IV X1 PRN; Protocol PRN Reason: Hypoglycemia Dextrose (D50w Syringe) 0 gm IV X1 PRN; Protocol PRN Reason: Hypoglycemia Enoxaparin Sodium (Lovenox) 30 mg SC DAILY@0600 [facility] Last Admin: 06/15/18 05:21 Dose: 30 mg Gabap[facility] ([facility]ontin) [facility] Last Admin: 06/14/18 17:16 Dose: 300 mg Glucagon () 1 mg IM .X1 PRN PRN Reason: Hypoglycemia Glucagon () 1 mg IM .X1 PRN PRN Reason: Hypoglycemia Heparin Sodium (Porcine) () 2,500 units IV UD PRN PRN Reason: HEPARIN FLUSH Last Admin: 06/07/18 12:00 Dose: 2,500 units Insulin Glargine (Lantus (Bkc)) 25 units SC [facility] Last Admin: 06/14/18 22:14 Dose: 25 u Insulin Human Lispro (Humalog Kwikpen (Bkc)) 0 unit SC ACHS [facility]; Protocol Last Admin: 06/14/18 22:15 Dose: 5 units Insulin Human Lispro (Humalog Kwikpen (Bkc)) 5 unit SC TIDAC [facility] Last Admin: 06/14/18 17:15 Dose: 5 units Melatonin (Melatonin) 3 mg PO QHS [facility] Last Admin: 06/14/18 22:14 Dose: 3 mg Nutritional Formula (Lactose Free) (Glucerna Shake) 120 ml PO 4X/DAY [facility] Ondansetron HCl (Zofran) 4 mg IV Q6H PRN PRN PRN Reason: NAUSEA/VOMITING Last Admin: 06/13/18 13:27 Dose: 4 mg Pantoprazole Sodium (Protonix) 40 mg PO DAILY [facility] Last Admin: 06/14/18 08:52 Dose: 40 mg Polyethylene Glycol (Miralax) 17 gm PO BID [facility] Last Admin: 06/14/18 22:17 Dose: 17 gm Prednisolone Acetate (Pred Forte Eye Drops (5 Ml)) 2 drop LEFT EYE DAILY [facility] Last Admin: 06/14/18 08:50 Dose: 2 drop Prednisone () 20 mg PO DAILY@0800 [facility] Last Admin: 06/14/18 07:54 Dose: 20 mg Promethazine HCl (Phenergan) 6.25 mg IV Q4H PRN PRN PRN Reason: NAUSEA/VOMITING Last Admin: 06/13/18 10:17 Dose: 6.25 mg Senna/Docusate Sodium (Senokot-S, Jade-Colace) 2 tablet PO DAILY PRN PRN PRN Reason: CONSTIPATION Last Admin: 06/14/18 14:15 Dose: 2 tablet Sodium Chloride () 5 - 15 ml IV UD PRN PRN Reason: SALINE FLUSH Last Admin: 06/13/18 13:27 Dose: 10 ml Sodium Chloride () 10 ml IV UD PRN PRN Reason: Dialysis Catheter Flush Sodium Chloride () 10 - 40 ml IV UD PRN PRN Reason: MULTILUMEN/HICMAN CATH FLUSH Last Admin: 06/14/18 04:48 Dose: 20 ml Medical Necessity - Tobacco Use Smoking Status: Former smoker Tobacco Use: Cigarettes Assessment/Plan All Active Problems Severe sepsis (Acute) Hyperkalemia (Acute) Metabolic acidosis (Acute) Tobacco use disorder (Resolved) Cocaine dependence, episodic (Resolved) The patient is a 63 y/o F w/ PMHx: PATRICK, Chronic Hypoxic Respiratory Failure, Pulmonary Fibrosis, Diabetes mellitus type II, CKD stage IV, Morbid Obesity, Tobacco use, Depression and Anxiety, History Cocaine Abuse, HTN, HLD who presents to the [facility] ED on 06/04/18 with history of worsening dyspnea x 2 weeks with intermittent productive cough, no fevers or chills but recent URI. (1) Acute Sepsis secondary to Acute on Chronic Hypoxic Respiratory Failure, Multifactorial, Possible ARDS, ? BL Pneumonia, ? Acute on Chronic COPD Exacerbation complicated by Pulmonary HTN: Intubated, sedated, MARIAN as noted concurrent, Acute CHF exacerbation concurrently, CXR w/ ? BL PNA also, continue ATC duonebs, PRN albuterol, maintained on IV solumedrol-->prednisone, maintained on IV Rocephin and completed Azithromycin, Coag neg staph and alpha hemolytic strep sputum cultures, negative respiratory panel, negative urine antigens. Bld cx x 2 obtained in the ED with NGTD. 06/12/18 successful SBT and extubation. Continued HD per Nephrology direction w/ session 06/12/18 4L, planned repeat 06/13/18 session 3L removal. May need ongoing HD, pending repeat functions. CM working on possible outpatient HD position. Transitioned 06/13/18 to PCU without any issue. PT, OT, CM consulted, per discussions with Nephrology will remain through weekend to closely monitor renal function and as noted 06/15/18, worsening function, BUN/Cr 103/4.82. Expect likely HD needs today. (2) Acute on Chronic Diastolic CHF Exacerbation with ? Cor Pulmonale w/ Junctional Rhythm, Possible transient PAF with indeterminate cardiac enzymes: Cardiology consulted, junctional bradycardia felt likely secondary to hyperkalemia, following HD normalized to SR, recommendation to avoid K > 4.5, discontinuation of patient losartan, unresponsive to diuretic therapy, HD started on 06/07/18, maintained on statin, not on ASA nor BB, secondary to worsening anemia and low normal BPs. Planned likely 06/12/18 repeat HD. Episode 06/11/18 AM as noted emesis x 2, transient appearance atrial fibrillation, return to bradycardia then junctional. Cardiology updated. Cardiac enzymes obtained w/ 0.496-->0.527-->0.360. Recent 06/04/18 ECHO w/ EF 65%, moderately dilated RV, moderately enlarged LA, moderately enlarged RA, trivial MDI, RVSP 56 mmHg, moderate pulmonary hypertension, normal diastology for age. Cardiology aware and updated about arrhythmia following emesis about x2, continue medical management per discussion with them and avoid K > 4.5. (3) Acute Oliguric Renal Failure on CKD stage IV: Suspected secondary to acute sepsis induced ATN. Admission BUN/Cr 34/2.11, last noted 02/05/15 Cr 2.05, 06/13/18 BUN/Cr 59/2.31-->06/14/18 BUN/Cr 68/3.51-->06/15/18 BUN/Cr 103/4.82, HD initiated 06/07/18, R IJ access in place, 06/07/18 removal 1.7 L, 06/12/18 HD 4L, repeat HD 06/13/18 3L removal. UOP decreased, expected given HD. Worsening renal function, will again review with Nephrology. Currently may require short-term outpatient dialysis, CM aware and working on outpatient spot. Expect likely HD needs today. Basurto removed per staff submarine warfare officer, will need to confirm if may remain out with Nephrology. (4) Hyperkalemia: Following admission K 5.8, improved following interventions, associated w/ MARIAN, 06/10/18 K 5.2-->06/15/18 K 4.1, continue to trend. (5) Chronic Anemia, Unclear Etiology: Hgb 7.4, admission Hgb 9.8, trending down since admission, acute on chronic renal presentation, 06/12/18 Hgb 8.1 with repeat 06/15/18 Hgb 9.0, stable. Studies w/ Fe 55, TIBC 227, Fe Sat 24.2, Ferritin 577, Vitamin B12 939, Folate 19.30, + stool guiac. Consistent with AOCD. Given stable Hgb will plan upon discharge, referral to Surgery outpatient for consideration endoscopy evaluation outpatient. Nausea may be associated with gastritis. Continued PPI. (6) Diabetes mellitus type II, Uncontrolled: Intermittent hyperglycemia during admission with alteration of basal insulin, maintained initially on tube feeds, successfully extubated 06/12/18. Hemoglobin A1c 6.3%. Patient notes that outpatient her blood sugars have been well controlled and she has been on retirement insulin therapy but is unable to give exact doses. BS elevated 200-300 range. 06/14/18 added scheduled short-acting with meals, continued accu checks w/ ISS q ACHS, increased scheduled Lantus although again sai that likely stress response given hemoglobin A1c levels with possible need to de-escalate once clinically improving. (7) Morbid Obesity: Weight loss and lifestyle changes will be encouraged, nutrition consulted following. (8) Anxiety and Depression: Maintained on home citalopram regimen. (9) History of Tobacco use: Encourage continued cessation. (10) Hypertension: BP low normal, held. (11) Hyperlipidemia: Continued on home statin. (12) GERD: PPI. (13) PATRICK: Currently intubated, sedated. (14) DVT Prophylaxis: SCDs, renally dosed lovenox. Code Visit Inpatient E&M: 77561 Subs Hosp L2
--- NOTE | 2018-06-15 07:37 | PN_ITS ---
Patient Problems: Active and Suspected Problems Severe sepsis (Acute) Hyperkalemia (Acute) Metabolic acidosis (Acute) Subjective: Patient with no acute events overnight per self and per nursing report. Patient continues to improve daily, tolerating therapies more. Today Basurto catheter was removed per nursing staff and patient insistence. Pending nephrology evaluation but given worsening renal function will likely need more dialysis and again discussed with patient and family that may need dialysis outpatient as well. Patient denies fevers, chills, nausea, emesis, abdominal pain, chest pain or dyspnea. Objective: Physical Examination: General: awake, alert, oriented x 3 and cooperative, seated upright bedside chair, no acute distress, well-appearing, feeling well she notes. Skin: normal color, turgor, no icterus, cyanosis. HEENT: AT/NC, EOMI, PERRLA, MMM, BL neck access in place. Lungs: Improved breath sounds, diminished at bases, normalized effort, no rales, rhonchi or wheezing. Heart: Regular rate and rhythm; no gallop, rub audible. Abdomen: soft, morbidly obese, NTTP, ND, normal BS. Extremities: no cyanosis, clubbing, resolved BL LE edema. Neurological: patient awake, alert, oriented x 3; cognitive function intact; pupils equally reactive to light and accomodation; cranial nerves II-XII grossly normal, moving all 4 extremities, no focal deficits, strength improving, moderately globally decreased. Psychiatric: affect appears normal, no acute evidence of depressive or anxiety feelings. Vitals/I&O's: Vital Signs Temp Pulse Resp BP Pulse Ox 98.1 F 45 L 16 116/55 L 95 06/15/18 02:45 06/15/18 03:27 06/15/18 02:45 06/15/18 02:45 06/15/18 02:45 Oxygen Flow Rate (L/min) 2 Oxygen Delivery Method Nasal Cannula Weight: 276 lb 14.409 oz Body Mass Index (BMI) 51.5 Finger Stick Blood Glucose 383 Intake and Output for Last 24 Hours 06/13/18 06/14/18 06/15/18 23:59 23:59 23:59 Intake Total 1190 / 1190 600 / 600 240 / 240 Output Total 2850 / 2850 255 / 255 300 / 300 Balance -1660 / -1660 345 / 345 -60 / -60 Laboratory Results 06/14/18 11:40: POC Glucose 385 H 06/14/18 16:06: POC Glucose 337 H 06/14/18 22:12: POC Glucose 335 H 06/15/18 05:30: WBC 15.3 H, RBC 2.96 L, Hgb 9.0 L, Hct 27.8 L, MCV 93.9, MCH 30.4, MCHC 32.4, RDW 13.8, RDW Differential 45.1 H, Plt Count 242, MPV 9.8, Immature Gran % (Auto) 0.700, Neut % (Auto) 68.6, Lymph % (Auto) 20.2, [place] % (Auto) 8.0, Eos % (Auto) 2.5, Baso % (Auto) 0.0, Absolute Neuts (auto) 10.5 H, Absolute Lymphs (auto) 3.10, Total Counted Not Reportable 06/15/18 05:30: Sodium 127 L, Potassium 4.1, Chloride 84 L, Carbon Dioxide 24.0, Anion Gap 19 H, BUN 103 H*, Creatinine 4.82 H, Estim Creat Clear Calc 10.61, Est GFR (MDRD) Af Amer 12 L, Est GFR (MDRD) Non-Af 10 L, BUN/Creatinine Ratio 21.4 H , Glucose 235 H, Calcium 9.2 06/15/18 06:41: POC Glucose 226 H Current Medications Acetaminophen (Tylenol) 650 mg PO Q6H PRN PRN PRN Reason: fever over 100.4 or pain Albuterol Sulfate (Ventolin Aerosols) 2.5 mg INHALATION Q2H PRN PRN PRN Reason: SHORTNESS OF BREATH Last Admin: 06/06/18 05:07 Dose: 2.5 mg Albuterol/Ipratropium (Duoneb) 3 ml INHALATION Q4HWA.RT [facility] Last Admin: 06/15/18 07:21 Dose: 3 ml Atorvastatin Calcium (Lipitor) 40 mg PO QHS [facility] Last Admin: 06/14/18 22:14 Dose: 40 mg Chlorhexidine Gluconate () 1 each TOPICAL DAILY [facility] Last Admin: 06/14/18 09:00 Dose: Not Given Citalopram Hydrobromide (Celexa) 40 mg PO DAILY [facility] Last Admin: 06/14/18 08:52 Dose: 40 mg Cyclopentolate HCl (Cyclogyl) 1 drop LEFT EYE QHS [facility] Last Admin: 06/14/18 22:16 Dose: 1 drop Dextrose (D50w Syringe) 0 gm IV X1 PRN; Protocol PRN Reason: Hypoglycemia Dextrose (D50w Syringe) 0 gm IV X1 PRN; Protocol PRN Reason: Hypoglycemia Enoxaparin Sodium (Lovenox) 30 mg SC DAILY@0600 [facility] Last Admin: 06/15/18 05:21 Dose: 30 mg [facility]) [facility] Last Admin: 06/14/18 17:16 Dose: 300 mg Glucagon () 1 mg IM .X1 PRN PRN Reason: Hypoglycemia Glucagon () 1 mg IM .X1 PRN PRN Reason: Hypoglycemia Heparin Sodium (Porcine) () 2,500 units IV UD PRN PRN Reason: HEPARIN FLUSH Last Admin: 06/07/18 12:00 Dose: 2,500 units Insulin Glargine (Lantus (Bkc)) 25 units SC [facility] Last Admin: 06/14/18 22:14 Dose: 25 u Insulin Human Lispro (Humalog Kwikpen (Bkc)) 0 unit SC ACHS [facility]; Protocol Last Admin: 06/14/18 22:15 Dose: 5 units Insulin Human Lispro (Humalog Kwikpen (Bkc)) 5 unit SC TIDAC [facility] Last Admin: 06/14/18 17:15 Dose: 5 units Melatonin (Melatonin) 3 mg PO QHS [facility] Last Admin: 06/14/18 22:14 Dose: 3 mg Nutritional Formula (Lactose Free) (Glucerna Shake) 120 ml PO 4X/DAY [facility] Ondansetron HCl (Zofran) 4 mg IV Q6H PRN PRN PRN Reason: NAUSEA/VOMITING Last Admin: 06/13/18 13:27 Dose: 4 mg Pantoprazole Sodium (Protonix) 40 mg PO DAILY [facility] Last Admin: 06/14/18 08:52 Dose: 40 mg Polyethylene Glycol (Miralax) 17 gm PO BID [facility] Last Admin: 06/14/18 22:17 Dose: 17 gm Prednisolone Acetate (Pred Forte Eye Drops (5 Ml)) 2 drop LEFT EYE DAILY [facility] Last Admin: 06/14/18 08:50 Dose: 2 drop Prednisone () 20 mg PO DAILY@0800 [facility] Last Admin: 06/14/18 07:54 Dose: 20 mg Promethazine HCl (Phenergan) 6.25 mg IV Q4H PRN PRN PRN Reason: NAUSEA/VOMITING Last Admin: 06/13/18 10:17 Dose: 6.25 mg Senna/Docusate Sodium (Senokot-S, Jade-Colace) 2 tablet PO DAILY PRN PRN PRN Reason: CONSTIPATION Last Admin: 06/14/18 14:15 Dose: 2 tablet Sodium Chloride () 5 - 15 ml IV UD PRN PRN Reason: SALINE FLUSH Last Admin: 06/13/18 13:27 Dose: 10 ml Sodium Chloride () 10 ml IV UD PRN PRN Reason: Dialysis Catheter Flush Sodium Chloride () 10 - 40 ml IV UD PRN PRN Reason: MULTILUMEN/HICMAN CATH FLUSH Last Admin: 06/14/18 04:48 Dose: 20 ml Medical Necessity - Tobacco Use Smoking Status: Former smoker Tobacco Use: Cigarettes Assessment/Plan All Active Problems Severe sepsis (Acute) Hyperkalemia (Acute) Metabolic acidosis (Acute) Tobacco use disorder (Resolved) Cocaine dependence, episodic (Resolved) The patient is a 63 y/o F w/ PMHx: PATRICK, Chronic Hypoxic Respiratory Failure, Pulmonary Fibrosis, Diabetes mellitus type II, CKD stage IV, Morbid Obesity, Tobacco use, Depression and Anxiety, History Cocaine Abuse, HTN, HLD who presents to the [facility] ED on 06/04/18 with history of worsening dyspnea x 2 weeks with intermittent productive cough, no fevers or chills but recent URI. (1) Acute Sepsis secondary to Acute on Chronic Hypoxic Respiratory Failure, Multifactorial, Possible ARDS, ? BL Pneumonia, ? Acute on Chronic COPD Exacerbation complicated by Pulmonary HTN: Intubated, sedated, MARIAN as noted concurrent, Acute CHF exacerbation concurrently, CXR w/ ? BL PNA also, continue ATC duonebs, PRN albuterol, maintained on IV solumedrol-->prednisone, maintained on IV Rocephin and completed Azithromycin, Coag neg staph and alpha hemolytic strep sputum cultures, negative respiratory panel, negative urine antigens. Bld cx x 2 obtained in the ED with NGTD. 06/12/18 successful SBT and extubation. Continued HD per Nephrology direction w/ session 06/12/18 4L, planned repeat 06/13/18 session 3L removal. May need ongoing HD, pending repeat functions. CM working on possible outpatient HD position. Transitioned 06/13/18 to PCU without any issue. PT, OT, CM consulted, per discussions with Nephrology will remain through weekend to closely monitor renal function and as noted 06/15/18, worsening function, BUN/Cr 103/4.82. Expect likely HD needs today. (2) Acute on Chronic Diastolic CHF Exacerbation with ? Cor Pulmonale w/ Junctional Rhythm, Possible transient PAF with indeterminate cardiac enzymes: Cardiology consulted, junctional bradycardia felt likely secondary to hyperkalemia, following HD normalized to SR, recommendation to avoid K > 4.5, discontinuation of patient losartan, unresponsive to diuretic therapy, HD started on 06/07/18, maintained on statin, not on ASA nor BB, secondary to worsening anemia and low normal BPs. Planned likely 06/12/18 repeat HD. Episode 06/11/18 AM as noted emesis x 2, transient appearance atrial fibrillation, return to bradycardia then junctional. Cardiology updated. Cardiac enzymes obtained w/ 0.496-->0.527-->0.360. Recent 06/04/18 ECHO w/ EF 65%, moderately dilated RV, moderately enlarged LA, moderately enlarged RA, trivial MDI, RVSP 56 mmHg, mod erate pulmonary hypertension, normal diastology for age. Cardiology aware and updated about arrhythmia following emesis about x2, continue medical management per discussion with them and avoid K > 4.5. (3) Acute Oliguric Renal Failure on CKD stage IV: Suspected secondary to acute sepsis induced ATN. Admission BUN/Cr 34/2.11, last noted 02/05/15 Cr 2.05, 06/13/18 BUN/Cr 59/2.31-->06/14/18 BUN/Cr 68/3.51-->06/15/18 BUN/Cr 103/4.82, HD initiated 06/07/18, R IJ access in place, 06/07/18 removal 1.7 L, 06/12/18 HD 4L, repeat HD 06/13/18 3L removal. UOP decreased, expected given HD. Worsening renal function, will again review with Nephrology. Currently may require short-term outpatient dialysis, CM aware and working on outpatient spot. Expect likely HD needs today. Basurto removed per staff scientist, will need to confirm if may remain out with Nephrology. (4) Hyperkalemia: Following admission K 5.8, improved following interventions, associated w/ MARIAN, 06/10/18 K 5.2-->06/15/18 K 4.1, continue to trend. (5) Chronic Anemia, Unclear Etiology: Hgb 7.4, admission Hgb 9.8, trending down since admission, acute on chronic renal presentation, 06/12/18 Hgb 8.1 with repeat 06/15/18 Hgb 9.0, stable. Studies w/ Fe 55, TIBC 227, Fe Sat 24.2, Ferritin 577, Vitamin B12 939, Folate 19.30, + stool guiac. Consistent with AOCD. Given stable Hgb will plan upon discharge, referral to Surgery outpatient for consideration endoscopy evaluation outpatient. Nausea may be associated with gastritis. Continued PPI. (6) Diabetes mellitus type II, Uncontrolled: Intermittent hyperglycemia during admission with alteration of basal insulin, maintained initially on tube feeds, successfully extubated 06/12/18. Hemoglobin A1c 6.3%. Patient notes that outpatient her blood sugars have been well controlled and she has been on retirement insulin therapy but is unable to give exact doses. BS elevated 200-300 range. 06/14/18 added scheduled short-acting with meals, continued accu checks w/ ISS q ACHS, increased scheduled Lantus although again sai that likely stress response given hemoglobin A1c levels with possible need to de-escalate once clinically improving. (7) Morbid Obesity: Weight loss and lifestyle changes will be encouraged, nutrition consulted following. (8) Anxiety and Depression: Maintained on home citalopram regimen. (9) History of Tobacco use: Encourage continued cessation. (10) Hypertension: BP low normal, held. (11) Hyperlipidemia: Continued on home statin. (12) GERD: PPI. (13) PATRICK: Currently intubated, sedated. (14) DVT Prophylaxis: SCDs, renally dosed lovenox. Code Visit Inpatient E&M: 64057 Subs Hosp L2
[2018-06-15] MEDS: Insulin Lispro 100 UNIT/ML INSULN.PEN SC ×7 (08:52→23:29)
[2018-06-15] MEDS: Pantoprazole Sodium 40 MG Tablet PO (08:55)
[2018-06-15] MEDS: Gabapentin 300 MG Capsule PO ×2 (08:56→18:46)
[2018-06-15] MEDS: predniSONE 20 MG Tablet PO (08:56)
[2018-06-15] MEDS: Citalopram 40 MG TABLET PO (08:56)
[2018-06-15] MEDS: NINTEDANIB ESYLATE 150 MG CAPSULE PO ×2 (08:58→21:47)
[2018-06-15] MEDS: Glucerna Shake 120 ML LIQUID PO ×2 (08:59→18:48)
[2018-06-15] MEDS: Glycerin/Hypromellose/PEG400 15 ml Bottle 1 DRP RIGHT EYE ×2 (09:01→23:26)
[2018-06-15] MEDS: prednisoLONE eye drops (5 mL) 1 DROP OPTH.BTL 2 DRP LEFT EYE (09:03)
[2018-06-15] MEDS: Polyethylene Glycol 3350 17 GM PACKET PO (09:13)
[2018-06-15 11:36] LABS: Bedside Glucose 338 mg/dL (70-110)
--- NOTE | 2018-06-15 12:58 | NURSING ---
Student nurse charting reviewed.
[2018-06-15 15:45] LABS: Bedside Glucose 281 mg/dL (70-110)
--- NOTE | 2018-06-15 18:32 | NURSING ---
Dialysis complete, pt tolerated well. Boyfriend at bedside. Denies c/o pain or discomfort. Pts supper tray at bedside.
--- NOTE | 2018-06-15 18:46 | PN.RENAL_ITS ---
Patient Problems: Active and Suspected Problems Severe sepsis (Acute) Hyperkalemia (Acute) Metabolic acidosis (Acute) Subjective: No acute event. No shortness of breath. No nausea no vomiting - Physical Exam General: Alert, Oriented x3 HEENT: Atraumatic Oral: Moist Mucosa Neck: Supple, No JVD Lungs: Clear to auscultation, Normal air movement, No rhonchi, No wheeze Cardiovascular: Regular rate, Regular Rhythm, Normal S1, Normal S2 Abdomen: Bowel Sounds Present, Soft, Non Tender Extremities: No clubbing, No cyanosis, No edema Skin: No rashes Musculoskeletal: No Tenderness to Palpation of Joints or Extremities Lymphatic: No Cervical, Supraclavicular, or Inguinal Adenopathy Neurological: Cranial nerves II-XII grossly intact, Neuro grossly intact Psych/Mental Status: Normal Affect Vital Signs Temp Pulse Resp BP Pulse Ox 98.5 F 86 18 138/70 H 97 06/15/18 18:31 06/15/18 18:31 06/15/18 18:31 06/15/18 18:31 06/15/18 18:31 Oxygen Flow Rate (L/min) 2 Oxygen Delivery Method Nasal Cannula Weight: 125.6 kg Body Mass Index (BMI) 51.5 Finger Stick Blood Glucose 383 Intake and Output for Last 24 Hours 06/13/18 06/14/18 06/15/18 23:59 23:59 23:59 Intake Total 1190 / 1190 600 / 600 720 / 720 Output Total 2850 / 2850 255 / 255 3200 / 3200 Balance -1660 / -1660 345 / 345 -2480 / -2480 Laboratory Tests Past 24 Hrs 06/15/18 06/15/18 05:30 05:30 WBC 15.3 H RBC 2.96 L Hgb 9.0 L Hct 27.8 L MCV 93.9 MCH 30.4 MCHC 32.4 RDW 13.8 RDW Differential 45.1 H Plt Count 242 MPV 9.8 Immature Gran % (Auto) 0.700 Neut % (Auto) 68.6 Lymph % (Auto) 20.2 [place] % (Auto) 8.0 Eos % (Auto) 2.5 Baso % (Auto) 0.0 Absolute Neuts (auto) 10.5 H Absolute Lymphs (auto) 3.10 Total Counted Not Reportable Sodium 127 L Potassium 4.1 Chloride 84 L Carbon Dioxide 24.0 Anion Gap 19 H BUN 103 H* Creatinine 4.82 H Estim Creat Clear Calc 10.61 Est GFR (MDRD) Af Amer 12 L Est GFR (MDRD) Non-Af 10 L BUN/Creatinine Ratio 21.4 H Glucose 235 H Calcium 9.2 POC Glucose 06/15/18 06/15/18 06/15/18 15:41 11:27 06:41 POC Glucose 281 H 338 H 226 H 06/14/18 22:12 POC Glucose 335 H Medical Necessity - Tobacco Use Smoking Status: Former smoker Tobacco Use: Cigarettes Assessment/Plan All Active Problems Severe sepsis (Acute) Hyperkalemia (Acute) Metabolic acidosis (Acute) Tobacco use disorder (Resolved) Cocaine dependence, episodic (Resolved) 1-acute kidney injury on chronic kidney disease. Patient has chronic kidney disease stage IV. MARIAN is most probably from sepsis induced ATN. Patient has been renal replacement therapy dependent for the last 10 days. Hemodialysis access is right IJ temporary hemodialysis catheter. No recovery of kidney function. Patient remains anuric with significant rise of BUN and creatinine. Hemodialysis session was arranged earlier today with 2.5 L ultrafiltration. We will consult surgery service on Sunday for tunneled catheter placement 2-hyperkalemia. Dialysis 3-Metabolic acidosis: With dialysis 4-acute respiratory failure due to ARDS/pneumonia. Improved Patient extubated. Patient finished antibiotics course. Renal team will continue to follow. Please call with any question or concern at my cell phone #[phone] Rob Fletcher MD
[2018-06-15] MEDS: Heparin 10,000 UNITS/10 ML Vial IV (18:48)
--- NOTE | 2018-06-15 18:55 | DIALYSIS ---
HD tx complete. 3.5 hour run 3k bath. Net fluid removed = 2800 ml. Patient tolerated HD tx well. Right IJ Mahurkar: site benign, dressing changed per protocol. Catheter lumen flushed with NS, filled to volume with Heparin, capped and clamped. Crit line profile B with plasma refill. Patient denies any abdominal pain after HD tx. Report given to primary RN, Annalee. Dr. Aguero notified patient's Renaldokar positional.
--- NOTE | 2018-06-15 20:44 | EKG12_ITS ---
Test Reason : Blood Pressure : / mmHG Vent. Rate : 075 BPM Atrial Rate : 075 BPM P-R Int : 200 ms QRS Dur : 112 ms QT Int : 424 ms P-R-T Axes : 030 012 027 degrees QTc Int : 473 ms Normal sinus rhythm Possible Left atrial enlargement Incomplete right bundle branch block Left ventricular hypertrophy Nonspecific ST abnormality Abnormal ECG Confirmed by VINNIE FALK, RICH ([id number]), continuity editor SHERRY ROGER ([id number]) on 06/24/2018 11:29:51 AM Referred By: Confirmed By:RICH BIRMINGHAM MD
--- NOTE | 2018-06-15 21:47 | NURSING ---
This nurse went to give patient her medications. She wanted one medication at this time and wanted to wait at least an hour for the rest of her medications.
--- NOTE | 2018-06-15 22:50 | NURSING ---
This nurse went in to give patient medications, patient was still on bedside commode and brushing her teeth.
[2018-06-15] MEDS: Cyclopentolate 1% 2 ML Bottle 1 DRP LEFT EYE (23:28)
[2018-06-15] MEDS: MELATONIN 3 MG TABLET PO (23:33)
[2018-06-15] MEDS: Atorvastatin Calcium 40 MG Tablet PO (23:33)
--- NOTE | 2018-06-15 23:53 | NURSING ---
Patient stated she did not want to wear her bipap tonight.
[2018-06-16] VITALS (14 sets, daily range): BP systolic 129–140; BP diastolic 49–61; PULSE 51–76; RESP 16–18; TEMP 36.2–37.2; O2SAT 94–98
[2018-06-16 00:16] LABS: Bedside Glucose 283 mg/dL (70-110)
[2018-06-16] MEDS: Enoxaparin 30 MG/0.3 ML Syringe SC (05:11)
[2018-06-16 05:57] LABS: Absolute Lymphocyte Count 2.44 X10^3/ul (0.83-4.51); Absolute Neutrophil Count 9.5 X10^3/uL (2.0-7.7); Basophil# 0.01 X10^3/uL; Basophil% 0.1 % (0-1); Eosinophil# 0.26 X10^3/uL; Eosinophils% 1.9 % (0-5); Hematocrit 26.4 % (37-47); Hemoglobin 8.5 g/dl (12.0-15.0); Lymphocyte # 2.44 X10^3/ul (4.0); Lymphocyte % 18.2 % (19-41); Mean Corp Hgb Conc 32.2 g/gl (32-36); Mean Corpuscular Hgb 30.4 pg (27.0-32.0); Mean Corpuscular Volume 94.3 fL (81-99); Mean Platelet Vol. 9.9 fl (6.2-12.0); Monocyte# 1.07 X10^3/uL; Neutrophil # 9.49 X10^3/uL (2.7-7.7); Neutrophil % 71.1 % (47-70); Platelet Count 217 K/mm3 (150-450); RBC Distribution Width CV 13.9 % (11.6-14.6); RBC Distribution Width SD 45.6 fl (35.1-43.9); White Blood Count 13.4 K/mm3 (4.4-11.0)
[2018-06-16 05:58] LABS: POSITIVE COUNT NO; POSITIVE DIFFERENTIAL NO; POSITIVE MORPHOLOGY NO
[2018-06-16 06:31] LABS: Anion Gap 11 (5-15); BUN 62 mg/dL (7-18); BUN/Creat Ratio 17.9 RATIO (10-20); Calcium,Total 8.2 mg/dL (8.5-10.1); Chloride 94 mmol/L (98-107); Creatinine, Serum 3.47 mg/dL (0.55-1.02); EST Glomerular Filtration Rate 14 mL/min (>60); Est Glom Filt Rate - Afr Amer 17 mL/min (>60); Estimated Creatinine Clearance 14.74 ml/min; Glucose 171 mg/dL (74-106); Potassium 3.9 mmol/L (3.5-5.1); Sodium Level 132 mmol/L (136-145)
[2018-06-16 07:05] LABS: Bedside Glucose 166 mg/dL (70-110)
--- NOTE | 2018-06-16 07:58 | PCM.PN.HOSP ---
Patient Problems: Active and Suspected Problems Severe sepsis (Acute) Hyperkalemia (Acute) Metabolic acidosis (Acute) Subjective: The patient is a 63 y/o F w/ PMHx: PATRICK, Chronic Hypoxic Respiratory Failure, Pulmonary Fibrosis, Diabetes mellitus type II, CKD stage IV, Morbid Obesity, Tobacco use, Depression and Anxiety, History Cocaine Abuse, HTN, HLD who presents to the [facility] ED on 06/04/18 with history of worsening dyspnea x 2 weeks with intermittent productive cough, no fevers or chills but recent URI. Initial ICU admission. Intubated, sedated, MARIAN as noted concurrent, Acute CHF exacerbation concurrently, CXR w/ ? BL PNA also, continue ATC duonebs, PRN albuterol, maintained on IV solumedrol-->prednisone w/ taper, maintained on IV Rocephin and completed Azithromycin, Coag neg staph and alpha hemolytic strep sputum cultures, negative respiratory panel, negative urine antigens. Bld cx x 2 obtained in the ED with NGTD. 06/12/18 successful SBT and extubation. Continued HD per Nephrology direction w/ session 06/12/18 4L, planned repeat 06/13/18 session 3L removal. May need ongoing HD, pending repeat functions. CM working on possible outpatient HD position. Transitioned 06/13/18 to PCU without any issue. PT, OT, CM consulted, per discussions with Nephrology remained through to trend renal function, worsened function 06/15/18 BUN/Cr 103/4.82, HD 2.5 L UF performed. Planned need for tunneled catheter placement Sunday as noted #3. Acute on Chronic Diastolic CHF Exacerbation with ? Cor Pulmonale w/ Junctional Rhythm, Possible transient PAF with indeterminate cardiac enzymes w/ cardiology consulted, junctional bradycardia felt likely secondary to hyperkalemia, following HD normalized to SR, recommendation to avoid K > 4.5, discontinuation of patient losartan, unresponsive to diuretic therapy, HD started on 06/07/18, maintained on statin, not on ASA nor BB, secondary to worsening anemia and low normal BPs. Acute Oliguric Renal Failure on CKD stage IV, Suspected secondary to acute sepsis induced ATN. Admission BUN/Cr 34/2.11, last noted 02/05/15 Cr 2.05, 06/13/18 BUN/Cr 59/2.31-->06/15/18 BUN/Cr 103/4.82-->06/16/18 BUN/Cr 62/3.47, HD initiated 06/07/18, R IJ access in place, 06/07/18 removal 1.7 L, 06/12/18 HD 4L, repeat HD 06/13/18 3L removal, 06/15/18 2.5L UF given worsening renal function and anuric status. 06/16/18 BUN/Cr 62/3.4. Per discussion with Nephrology given creatinine trending and UOP, will need at least short duration HD outpatient. Dr. Juarez consulted and will plan 06/17/18 tunneled catheter placement. He did request that the right IJ be removed which has been requested to nursing staff and confirmed amenable per nephrology prior. 7. CM consulted and already initiating outpatient HD needs, possible short-term but given ongoing renal function changes may be more prolonged. Chronic Anemia, Unclear Etiology, Hgb 7.4, admission Hgb 9.8, trending down since admission, acute on chronic renal presentation, 06/12/18 Hgb 8.1 with repeat 06/16/18 Hgb 8.5, fluctuates. Studies w/ Fe 55, TIBC 227, Fe Sat 24.2, Ferritin 577, Vitamin B12 939, Folate 19.30, + stool guiac. Consistent with AOCD. Given stable VS, stable Hgb will plan upon discharge, referral to Surgery outpatient for consideration endoscopy evaluation outpatient. Nausea resolved. Continued on PPI. Patient with no acute events overnight per self and per nursing report. Patient notes ongoing decent urine output status post Basurto removal. Patient did have ultrafiltration day prior per nephrology direction. Patient has had increased creatinine with ongoing set up of outpatient dialysis possibly short-term but unclear. Patient denies fevers, chills, nausea, emesis, abdominal pain, chest pain or dyspnea. Objective: Physical Examination: General: awake, alert, oriented x 3 and cooperative, seated upright bedside chair, no acute distress. Skin: normal color, turgor, no icterus, cyanosis. HEENT: AT/NC, EOMI, PERRLA, MMM, BL neck access in place. Lungs: Improved breath sounds, diminished at bases, normalized effort, no rales, rhonchi or wheezing. Heart: Regular rate and rhythm; no gallop, rub audible. Abdomen: soft, morbidly obese, NTTP, ND, normal BS. Extremities: no cyanosis, clubbing, no edema. Neurological: patient awake, alert, oriented x 3; cognitive function intact; pupils equally reactive to light and accomodation; cranial nerves II-XII grossly normal, moving all 4 extremities, no focal deficits, strength improving, moderately globally decreased. Psychiatric: affect appears normal, no acute evidence of depressive or anxiety feelings. Vitals/I&O's: Vital Signs Temp Pulse Resp BP Pulse Ox 97.4 F L 75 18 140/60 H 95 06/16/18 05:00 06/16/18 06:59 06/16/18 05:00 06/16/18 05:00 06/16/18 05:00 Oxygen Flow Rate (L/min) 2 Oxygen Delivery Method Nasal Cannula Weight: 275 lb 5.718 oz Body Mass Index (BMI) 51.5 Finger Stick Blood Glucose 383 Intake and Output for Last 24 Hours 06/14/18 06/15/18 06/16/18 23:59 23:59 23:59 Intake Total 600 / 600 960 / 960 240 / 240 Output Total 255 / 255 3200 / 3200 Balance 345 / 345 -2240 / -2240 240 / 240 Laboratory Results 06/15/18 11:27: POC Glucose 338 H 06/15/18 15:41: POC Glucose 281 H 06/15/18 23:26: POC Glucose 283 H 06/16/18 05:40: WBC 13.4 H, RBC 2.80 L, Hgb 8.5 L, Hct 26.4 L, MCV 94.3, MCH 30.4, MCHC 32.2, RDW 13.9, RDW Differential 45.6 H, Plt Count 217, MPV 9.9, Immature Gran % (Auto) 0.700, Neut % (Auto) 71.1 H, Lymph % (Auto) 18.2 L, [place] % (Auto) 8.0, Eos % (Auto) 1.9, Baso % (Auto) 0.1, Absolute Neuts (auto) 9.5 H, Absolute Lymphs (auto) 2.44, Total Counted Not Reportable 06/16/18 05:40: Sodium 132 L, Potassium 3.9, Chloride 94 L, Carbon Dioxide 27.0, Anion Gap 11, BUN 62 H, Creatinine 3.47 H, Estim Creat Clear Calc 14.74, Est GFR (MDRD) Af Amer 17 L, Est GFR (MDRD) Non-Af 14 L, BUN/Creatinine Ratio 17.9, Glucose 171 H, Calcium 8.2 L 06/16/18 07:02: POC Glucose 166 H Current Medications Acetaminophen (Tylenol) 650 mg PO Q6H PRN PRN PRN Reason: fever over 100.4 or pain Albuterol Sulfate (Ventolin Aerosols) 2.5 mg INHALATION Q2H PRN PRN PRN Reason: SHORTNESS OF BREATH Last Admin: 06/06/18 05:07 Dose: 2.5 mg Albuterol/Ipratropium (Duoneb) 3 ml INHALATION Q4HWA.RT [facility] Last Admin: 06/16/18 06:55 Dose: Not Given Atorvastatin Calcium (Lipitor) 40 mg PO QHS [facility] Last Admin: 06/15/18 23:33 Dose: 40 mg Chlorhexidine Gluconate () 1 each TOPICAL DAILY [facility] Last Admin: 06/15/18 10:00 Dose: Not Given Citalopram Hydrobromide (Celexa) 40 mg PO DAILY [facility] Last Admin: 06/15/18 08:56 Dose: 40 mg Cyclopentolate HCl (Cyclogyl) 1 drop LEFT EYE QHS [facility] Last Admin: 06/15/18 23:28 Dose: 1 drop Dextrose (D50w Syringe) 0 gm IV X1 PRN; Protocol PRN Reason: Hypoglycemia Dextrose (D50w Syringe) 0 gm IV X1 PRN; Protocol PRN Reason: Hypoglycemia Enoxaparin Sodium (Lovenox) 30 mg SC DAILY@0600 [facility] Last Admin: 06/16/18 05:11 Dose: 30 mg Gabapentin (Neurontin) 300 mg PO BIDCM [facility] Last Admin: 06/15/18 18:46 Dose: 300 mg Glucagon () 1 mg IM .X1 PRN PRN Reason: Hypoglycemia Glucagon () 1 mg IM .X1 PRN PRN Reason: Hypoglycemia Heparin Sodium (Porcine) () 2,500 units IV UD PRN PRN Reason: HEPARIN FLUSH Last Admin: 06/07/18 12:00 Dose: 2,500 units Insulin Glargine (Lantus (Bkc)) 25 units SC [facility] Last Admin: 06/15/18 23:31 Dose: 25 u Insulin Human Lispro (Humalog Kwikpen (Bkc)) 0 unit SC ACHS [facility]; Protocol Last Admin: 06/15/18 23:29 Dose: 4 units Insulin Human Lispro (Humalog Kwikpen (Bkc)) 5 unit SC TIDAC [facility] Last Admin: 06/15/18 18:47 Dose: 5 units Melatonin (Melatonin) 3 mg PO QHS [facility] Last Admin: 06/15/18 23:33 Dose: 3 mg Nutritional Formula (Lactose Free) (Glucerna Shake) 120 ml PO 4X/DAY [facility] Last Admin: 06/15/18 23:29 Dose: Not Given Ondansetron HCl (Zofran) 4 mg IV Q6H PRN PRN PRN Reason: NAUSEA/VOMITING Last Admin: 06/13/18 13:27 Dose: 4 mg Pantoprazole Sodium (Protonix) 40 mg PO DAILY [facility] Last Admin: 06/15/18 08:55 Dose: 40 mg Polyethylene Glycol (Miralax) 17 gm PO BID [facility] Last Admin: 06/15/18 23:33 Dose: Not Given Prednisolone Acetate (Pred Forte Eye Drops (5 Ml)) 2 drop LEFT EYE DAILY [facility] Last Admin: 06/15/18 09:03 Dose: 2 drop Prednisone () 20 mg PO DAILY@0800 [facility] Last Admin: 06/15/18 08:56 Dose: 20 mg Promethazine HCl (Phenergan) 6.25 mg IV Q4H PRN PRN PRN Reason: NAUSEA/VOMITING Last Admin: 06/13/18 10:17 Dose: 6.25 mg Senna/Docusate Sodium (Senokot-S, Jade-Colace) 2 tablet PO DAILY PRN PRN PRN Reason: CONSTIPATION Last Admin: 06/14/18 14:15 Dose: 2 tablet Sodium Chloride () 5 - 15 ml IV UD PRN PRN Reason: SALINE FLUSH Last Admin: 06/13/18 13:27 Dose: 10 ml Sodium Chloride () 10 ml IV UD PRN PRN Reason: Dialysis Catheter Flush Sodium Chloride () 10 - 40 ml IV UD PRN PRN Reason: MULTILUMEN/HICMAN CATH FLUSH Last Admin: 06/16/18 05:48 Dose: 20 ml Medical Necessity - Tobacco Use Smoking Status: Former smoker Tobacco Use: Cigarettes Assessment/Plan All Active Problems Severe sepsis (Acute) Hyperkalemia (Acute) Metabolic acidosis (Acute) Tobacco use disorder (Resolved) Cocaine dependence, episodic (Resolved) The patient is a 63 y/o F w/ PMHx: PATRICK, Chronic Hypoxic Respiratory Failure, Pulmonary Fibrosis, Diabetes mellitus type II, CKD stage IV, Morbid Obesity, Tobacco use, Depression and Anxiety, History Cocaine Abuse, HTN, HLD who presents to the [facility] ED on 06/04/18 with history of worsening dyspnea x 2 weeks with intermittent productive cough, no fevers or chills but recent URI. (1) Acute Sepsis secondary to Acute on Chronic Hypoxic Respiratory Failure, Multifactorial, Possible ARDS, ? BL Pneumonia, ? Acute on Chronic COPD Exacerbation complicated by Pulmonary HTN: Intubated, sedated, MARIAN as noted concurrent, Acute CHF exacerbation concurrently, CXR w/ ? BL PNA also, continue ATC duonebs, PRN albuterol, maintained on IV solumedrol-->prednisone, maintained on IV Rocephin and completed Azithromycin, Coag neg staph and alpha hemolytic strep sputum cultures, negative respiratory panel, negative urine antigens. Bld cx x 2 obtained in the ED with NGTD. 06/12/18 successful SBT and extubation. Continued HD per Nephrology direction w/ session 06/12/18 4L, planned repeat 06/13/18 session 3L removal. May need ongoing HD, pending repeat functions. CM working on possible outpatient HD position. Transitioned 06/13/18 to PCU without any issue. PT, OT, CM consulted, per discussions with Nephrology remained through to trend renal function, worsened function 06/15/18 BUN/Cr 103/4.82, HD 2.5 L UF performed. Planned need for tunneled catheter placement Sunday as noted #3. (2) Acute on Chronic Diastolic CHF Exacerbation with ? Cor Pulmonale w/ Junctional Rhythm, Possible transient PAF with indeterminate cardiac enzymes: Cardiology consulted, junctional bradycardia felt likely secondary to hyperkalemia, following HD normalized to SR, recommendation to avoid K > 4.5, discontinuation of patient losartan, unresponsive to diuretic therapy, HD started on 06/07/18, maintained on statin, not on ASA nor BB, secondary to worsening anemia and low normal BPs. Planned likely 06/12/18 repeat HD. Episode 06/11/18 AM as noted emesis x 2, transient appearance atrial fibrillation, return to bradycardia then junctional. Cardiology updated. Cardiac enzymes obtained w/ 0.496-->0.527-->0.360. Recent 06/04/18 ECHO w/ EF 65%, moderately dilated RV, moderately enlarged LA, moderately enlarged RA, trivial MDI, RVSP 56 mmHg, moderate pulmonary hypertension, normal diastology for age. Cardiology aware and updated about arrhythmia following emesis about x2, continue medical management per discussion with them and avoid K > 4.5. (3) Acute Oliguric Renal Failure on CKD stage IV: Suspected secondary to acute sepsis induced ATN. Admission BUN/Cr 34/2.11, last noted 02/05/15 Cr 2.05, 06/13/18 BUN/Cr 59/2.31-->06/15/18 BUN/Cr 103/4.82-->06/16/18 BUN/Cr 62/3.47, HD initiated 06/07/18, R IJ access in place, 06/07/18 removal 1.7 L, 06/12/18 HD 4L, repeat HD 06/13/18 3L removal, 06/15/18 2.5L UF given worsening renal function and anuric status. 06/16/18 BUN/Cr 62/3.4. Per discussion with Nephrology given creatinine trending and UOP, will need at least short duration HD outpatient. Dr. Juarez consulted and will plan 06/17/18 tunneled catheter placement. He did request that the right IJ be removed which has been requested to nursing staff and confirmed amenable per nephrology prior. 7. CM consulted and already initiating outpatient HD needs, possible short-term but given ongoing renal function changes may be more prolonged. (4) Hyperkalemia: Following admission K 5.8, improved following interventions, associated w/ MARIAN, 06/10/18 K 5.2-->06/16/18 K 3.9, continue to trend. (5) Chronic Anemia, Unclear Etiology: Hgb 7.4, admission Hgb 9.8, trending down since admission, acute on chronic renal presentation, 06/12/18 Hgb 8.1 with repeat 06/16/18 Hgb 8.5, fluctuates. Studies w/ Fe 55, TIBC 227, Fe Sat 24.2, Ferritin 577, Vitamin B12 939, Folate 19.30, + stool guiac. Consistent with AOCD. Given stable VS, stable Hgb will plan upon discharge, referral to Surgery outpatient for consideration endoscopy evaluation outpatient. Nausea resolved. Continued on PPI. (6) Diabetes mellitus type II, Uncontrolled: Intermittent hyperglycemia during admission with alteration of basal insulin, maintained initially on tube feeds, successfully extubated 06/12/18. Hemoglobin A1c 6.3%. Patient notes that outpatient her blood sugars have been well controlled and she has been on supervisor intermediates insulin therapy but is unable to give exact doses. BS elevated 200-300 range. 06/14/18 added scheduled short-acting with meals, continued accu checks w/ ISS q ACHS, increased scheduled Lantus although again likely stress response given hemoglobin A1c levels with possible need to de-escalate once clinically improving. BS improved 06/16/18 through prior evening following changes. (7) Morbid Obesity: Weight loss and lifestyle changes will be encouraged, nutrition consulted following. (8) Anxiety and Depression: Maintained on home citalopram regimen. (9) History of Tobacco use: Encourage continued cessation. (10) Hypertension: BP low normal, held. (11) Hyperlipidemia: Continued on home statin. (12) GERD: PPI. (13) PATRICK: Currently intubated, sedated. (14) DVT Prophylaxis: SCDs, renally dosed lovenox which will need to be held for AM procedure. Code Visit Inpatient E&M: 04791 Subs Hosp L2
--- NOTE | 2018-06-16 08:04 | PN_ITS ---
Patient Problems: Active and Suspected Problems Severe sepsis (Acute) Hyperkalemia (Acute) Metabolic acidosis (Acute) Subjective: The patient is a 63 y/o F w/ PMHx: PATRICK, Chronic Hypoxic Respiratory Failure, Pulmonary Fibrosis, Diabetes mellitus type II, CKD stage IV, Morbid Obesity, Tobacco use, Depression and Anxiety, History Cocaine Abuse, HTN, HLD who presents to the [facility] ED on 06/04/18 with history of worsening dyspnea x 2 weeks with intermittent productive cough, no fevers or chills but recent URI. Initial ICU admission. Intubated, sedated, MARIAN as noted concurrent, Acute CHF exacerbation concurrently, CXR w/ ? BL PNA also, continue ATC duonebs, PRN albuterol, maintained on IV solumedrol-->prednisone w/ taper, maintained on IV Rocephin and completed Azithromycin, Coag neg staph and alpha hemolytic strep sputum cultures, negative respiratory panel, negative urine antigens. Bld cx x 2 obtained in the ED with NGTD. 06/12/18 successful SBT and extubation. Continued HD per Nephrology direction w/ session 06/12/18 4L, planned repeat 06/13/18 session 3L removal. May need ongoing HD, pending repeat functions. CM working on possible outpatient HD position. Transitioned 06/13/18 to PCU without any issue. PT, OT, CM consulted, per discussions with Nephrology remained through to trend renal function, worsened function 06/15/18 BUN/Cr 103/4.82, HD 2.5 L UF performed. Planned need for tunneled catheter placement Sunday as noted #3. Acute on Chronic Diastolic CHF Exacerbation with ? Cor Pulmonale w/ Junctional Rhythm, Possible transient PAF with indeterminate cardiac enzymes w/ cardiology consulted, junctional bradycardia felt likely secondary to hyperkalemia, following HD normalized to SR, recommendation to avoid K > 4.5, discontinuation of patient losartan, unresponsive to diuretic therapy, HD started on 06/07/18, maintained on statin, not on ASA nor BB, secondary to worsening anemia and low normal BPs. Acute Oliguric Renal Failure on CKD stage IV, Suspected secondary to acute sepsis induced ATN. Admission BUN/Cr 34/2.11, last noted 02/05/15 Cr 2.05, 06/13/18 BUN/Cr 59/2.31-->06/15/18 BUN/Cr 103/4.82-->06/16/18 BUN/Cr 62/3.47, HD initiated 06/07/18, R IJ access in place, 06/07/18 removal 1.7 L, 06/12/18 HD 4L, repeat HD 06/13/18 3L removal, 06/15/18 2.5L UF given worsening renal function and anuric status. 06/16/18 BUN/Cr 62/3.4. Per discussion with Nephrology given creatinine trending and UOP, will need at least short duration HD outpatient. Dr. Juarez consulted and will plan 06/17/18 tunneled catheter placement. He did request that the right IJ be removed which has been requested to nursing staff and confirmed amenable per nephrology prior. 7. CM consulted and already initiating outpatient HD needs, possible short-term but given ongoing renal function changes may be more prolonged. Chronic Anemia, Unclear Etiology, Hgb 7.4, admission Hgb 9.8, trending down since admission, acute on chronic renal presentation, 06/12/18 Hgb 8.1 with repeat 06/16/18 Hgb 8.5, fluctuates. Studies w/ Fe 55, TIBC 227, Fe Sat 24.2, Ferritin 577, Vitamin B12 939, Folate 19.30, + stool guiac. Consistent with AOCD. Given stable VS, stable Hgb will plan upon discharge, referral to Surgery outpatient for consideration endoscopy evaluation outpatient. Nausea resolved. Continued on PPI. Patient with no acute events overnight per self and per nursing report. Patient notes ongoing decent urine output status post Basurto removal. Patient did have ultrafiltration day prior per nephrology direction. Patient has had increased creatinine with ongoing set up of outpatient dialysis possibly short-term but unclear. Patient denies fevers, chills, nausea, emesis, abdominal pain, chest pain or dyspnea. Objective: Physical Examination: General: awake, alert, oriented x 3 and cooperative, seated upright bedside chair, no acute distress. Skin: normal color, turgor, no icterus, cyanosis. HEENT: AT/NC, EOMI, PERRLA, MMM, BL neck access in place. Lungs: Improved breath sounds, diminished at bases, normalized effort, no rales, rhonchi or wheezing. Heart: Regular rate and rhythm; no gallop, rub audible. Abdomen: soft, morbidly obese, NTTP, ND, normal BS. Extremities: no cyanosis, clubbing, no edema. Neurological: patient awake, alert, oriented x 3; cognitive function intact; pupils equally reactive to light and accomodation; cranial nerves II-XII grossly normal, moving all 4 extremities, no focal deficits, strength improving, moderately globally decreased. Psychiatric: affect appears normal, no acute evidence of depressive or anxiety feelings. Vitals/I&O's: Vital Signs Temp Pulse Resp BP Pulse Ox 97.4 F L 75 18 140/60 H 95 06/16/18 05:00 06/16/18 06:59 06/16/18 05:00 06/16/18 05:00 06/16/18 05:00 Oxygen Flow Rate (L/min) 2 Oxygen Delivery Method Nasal Cannula Weight: 275 lb 5.718 oz Body Mass Index (BMI) 51.5 Finger Stick Blood Glucose 383 Intake and Output for Last 24 Hours 06/14/18 06/15/18 06/16/18 23:59 23:59 23:59 Intake Total 600 / 600 960 / 960 240 / 240 Output Total 255 / 255 3200 / 3200 Balance 345 / 345 -2240 / -2240 240 / 240 Laboratory Results 06/15/18 11:27: POC Glucose 338 H 06/15/18 15:41: POC Glucose 281 H 06/15/18 23:26: POC Glucose 283 H 06/16/18 05:40: WBC 13.4 H, RBC 2.80 L, Hgb 8.5 L, Hct 26.4 L, MCV 94.3, MCH 30.4, MCHC 32.2, RDW 13.9, RDW Differential 45.6 H, Plt Count 217, MPV 9.9, Immature Gran % (Auto) 0.700, Neut % (Auto) 71.1 H, Lymph % (Auto) 18.2 L, [place] % (Auto) 8.0, Eos % (Auto) 1.9, Baso % (Auto) 0.1, Absolute Neuts (auto) 9.5 H, Absolute Lymphs (auto) 2.44, Total Counted Not Reportable 06/16/18 05:40: Sodium 132 L, Potassium 3.9, Chloride 94 L, Carbon Dioxide 27.0, Anion Gap 11, BUN 62 H, Creatinine 3.47 H, Estim Creat Clear Calc 14.74, Est GFR (MDRD) Af Amer 17 L, Est GFR (MDRD) Non-Af 14 L, BUN/Creatinine Ratio 17.9, Glucose 171 H, Calcium 8.2 L 06/16/18 07:02: POC Glucose 166 H Current Medications Acetaminophen (Tylenol) 650 mg PO Q6H PRN PRN PRN Reason: fever over 100.4 or pain Albuterol Sulfate (Ventolin Aerosols) 2.5 mg INHALATION Q2H PRN PRN PRN Reason: SHORTNESS OF BREATH Last Admin: 06/06/18 05:07 Dose: 2.5 mg Albuterol/Ipratropium (Duoneb) 3 ml INHALATION Q4HWA.RT [facility] Last Admin: 06/16/18 06:55 Dose: Not Given Atorvastatin Calcium (Lipitor) 40 mg PO QHS [facility] Last Admin: 06/15/18 23:33 Dose: 40 mg Chlorhexidine Gluconate () 1 each TOPICAL DAILY [facility] Last Admin: 06/15/18 10:00 Dose: Not Given Citalopram Hydrobromide (Celexa) 40 mg PO DAILY [facility] Last Admin: 06/15/18 08:56 Dose: 40 mg Cyclopentolate HCl (Cyclogyl) 1 drop LEFT EYE QHS [facility] Last Admin: 06/15/18 23:28 Dose: 1 drop Dextrose (D50w Syringe) 0 gm IV X1 PRN; Protocol PRN Reason: Hypoglycemia Dextrose (D50w Syringe) 0 gm IV X1 PRN; Protocol PRN Reason: Hypoglycemia Enoxaparin Sodium (Lovenox) 30 mg SC DAILY@0600 [facility] Last Admin: 06/16/18 05:11 Dose: 30 mg Gabapentin (Neurontin) 300 mg PO BIDCM [facility] Last Admin: 06/15/18 18:46 Dose: 300 mg Glucagon () 1 mg IM .X1 PRN PRN Reason: Hypoglycemia Glucagon () 1 mg IM .X1 PRN PRN Reason: Hypoglycemia Heparin Sodium (Porcine) () 2,500 units IV UD PRN PRN Reason: HEPARIN FLUSH Last Admin: 06/07/18 12:00 Dose: 2,500 units Insulin Glargine (Lantus (Bkc)) 25 units SC [facility] Last Admin: 06/15/18 23:31 Dose: 25 u Insulin Human Lispro (Humalog Kwikpen (Bkc)) 0 unit SC ACHS [facility]; Protocol Last Admin: 06/15/18 23:29 Dose: 4 units Insulin Human Lispro (Humalog Kwikpen (Bkc)) 5 unit SC TIDAC [facility] Last Admin: 06/15/18 18:47 Dose: 5 units Melatonin (Melatonin) 3 mg PO QHS [facility] Last Admin: 06/15/18 23:33 Dose: 3 mg Nutritional Formula (Lactose Free) (Glucerna Shake) 120 ml PO 4X/DAY [facility] Last Admin: 06/15/18 23:29 Dose: Not Given Ondansetron HCl (Zofran) 4 mg IV Q6H PRN PRN PRN Reason: NAUSEA/VOMITING Last Admin: 06/13/18 13:27 Dose: 4 mg Pantoprazole Sodium (Protonix) 40 mg PO DAILY [facility] Last Admin: 06/15/18 08:55 Dose: 40 mg Polyethylene Glycol (Miralax) 17 gm PO BID [facility] Last Admin: 06/15/18 23:33 Dose: Not Given Prednisolone Acetate (Pred Forte Eye Drops (5 Ml)) 2 drop LEFT EYE DAILY [facility] Last Admin: 06/15/18 09:03 Dose: 2 drop Prednisone () 20 mg PO DAILY@0800 [facility] Last Admin: 06/15/18 08:56 Dose: 20 mg Promethazine HCl (Phenergan) 6.25 mg IV Q4H PRN PRN PRN Reason: NAUSEA/VOMITING Last Admin: 06/13/18 10:17 Dose: 6.25 mg Senna/Docusate Sodium (Senokot-S, Jade-Colace) 2 tablet PO DAILY PRN PRN PRN Reason: CONSTIPATION Last Admin: 06/14/18 14:15 Dose: 2 tablet Sodium Chloride () 5 - 15 ml IV UD PRN PRN Reason: SALINE FLUSH Last Admin: 06/13/18 13:27 Dose: 10 ml Sodium Chloride () 10 ml IV UD PRN PRN Reason: Dialysis Catheter Flush Sodium Chloride () 10 - 40 ml IV UD PRN PRN Reason: MULTILUMEN/HICMAN CATH FLUSH Last Admin: 06/16/18 05:48 Dose: 20 ml Medical Necessity - Tobacco Use Smoking Status: Former smoker Tobacco Use: Cigarettes Assessment/Plan All Active Problems Severe sepsis (Acute) Hyperkalemia (Acute) Metabolic acidosis (Acute) Tobacco use disorder (Resolved) Cocaine dependence, episodic (Resolved) The patient is a 63 y/o F w/ PMHx: PATRICK, Chronic Hypoxic Respiratory Failure, Pulmonary Fibrosis, Diabetes mellitus type II, CKD stage IV, Morbid Obesity, Tobacco use, Depression and Anxiety, History Cocaine Abuse, HTN, HLD who presents to the [facility] ED on 06/04/18 with history of worsening dyspnea x 2 weeks with intermittent productive cough, no fevers or chills but recent URI. (1) Acute Sepsis secondary to Acute on Chronic Hypoxic Respiratory Failure, Multifactorial, Possible ARDS, ? BL Pneumonia, ? Acute on Chronic COPD Exacerbation complicated by Pulmonary HTN: Intubated, sedated, MARIAN as noted concurrent, Acute CHF exacerbation concurrently, CXR w/ ? BL PNA also, continue ATC duonebs, PRN albuterol, maintained on IV solumedrol-->prednisone, maintained on IV Rocephin and completed Azithromycin, Coag neg staph and alpha hemolytic strep sputum cultures, negative respiratory panel, negative urine antigens. Bld cx x 2 obtained in the ED with NGTD. 06/12/18 successful SBT and extubation. Continued HD per Nephrology direction w/ session 06/12/18 4L, planned repeat 06/13/18 session 3L removal. May need ongoing HD, pending repeat functions. CM working on possible outpatient HD position. Transitioned 06/13/18 to PCU without any issue. PT, OT, CM consulted, per discussions with Nephrology remained through to trend renal function, worsened function 06/15/18 BUN/Cr 103/ 4.82, HD 2.5 L UF performed. Planned need for tunneled catheter placement Sunday as noted #3. (2) Acute on Chronic Diastolic CHF Exacerbation with ? Cor Pulmonale w/ Junctional Rhythm, Possible transient PAF with indeterminate cardiac enzymes: Cardiology consulted, junctional bradycardia felt likely secondary to hyperkalemia, following HD normalized to SR, recommendation to avoid K > 4.5, discontinuation of patient losartan, unresponsive to diuretic therapy, HD started on 06/07/18, maintained on statin, not on ASA nor BB, secondary to worsening anemia and low normal BPs. Planned likely 06/12/18 repeat HD. Episode 06/11/18 AM as noted emesis x 2, transient appearance atrial fibrillation, return to bradycardia then junctional. Cardiology updated. Cardiac enzymes obtained w/ 0.496-->0.527-->0.360. Recent 06/04/18 ECHO w/ EF 65%, moderately dilated RV, moderately enlarged LA, moderately enlarged RA, trivial MDI, RVSP 56 mmHg, moderate pulmonary hypertension, normal diastology for age. Cardiology aware and updated about arrhythmia following emesis about x2, continue medical management per discussion with them and avoid K > 4.5. (3) Acute Oliguric Renal Failure on CKD stage IV: Suspected secondary to acute sepsis induced ATN. Admission BUN/Cr 34/2.11, last noted 02/05/15 Cr 2.05, 06/13/18 BUN/Cr 59/2.31-->06/15/18 BUN/Cr 103/4.82-->06/16/18 BUN/Cr 62/3.47, HD initiated 06/07/18, R IJ access in place, 06/07/18 removal 1.7 L, 06/12/18 HD 4L, repeat HD 06/13/18 3L removal, 06/15/18 2.5L UF given worsening renal function and anuric status. 06/16/18 BUN/Cr 62/3.4. Per discussion with Nephrology given creatinine trending and UOP, will need at least short duration HD outpatient. Dr. Juarez consulted and will plan 06/17/18 tunneled catheter placement. He did request that the right IJ be removed which has been requested to nursing staff and confirmed amenable per nephrology prior. 7. CM consulted and already initiating outpatient HD needs, possible short-term but given ongoing renal function changes may be more prolonged. (4) Hyperkalemia: Following admission K 5.8, improved following interventions, associated w/ MARIAN, 06/10/18 K 5.2-->06/16/18 K 3.9, continue to trend. (5) Chronic Anemia, Unclear Etiology: Hgb 7.4, admission Hgb 9.8, trending down since admission, acute on chronic renal presentation, 06/12/18 Hgb 8.1 with repeat 06/16/18 Hgb 8.5, fluctuates. Studies w/ Fe 55, TIBC 227, Fe Sat 24.2, Ferritin 577, Vitamin B12 939, Folate 19.30, + stool guiac. Consistent with AOCD. Given stable VS, stable Hgb will plan upon discharge, referral to Surgery outpatient for consideration endoscopy evaluation outpatient. Nausea resolved. Continued on PPI. (6) Diabetes mellitus type II, Uncontrolled: Intermittent hyperglycemia during admission with alteration of basal insulin, maintained initially on tube feeds, successfully extubated 06/12/18. Hemoglobin A1c 6.3%. Patient notes that outpatient her blood sugars have been well controlled and she has been on prison insulin therapy but is unable to give exact doses. BS elevated 200-300 range. 06/14/18 added scheduled short-acting with meals, continued accu checks w/ ISS q ACHS, increased scheduled Lantus although again likely stress response given hemoglobin A1c levels with possible need to de-escalate once clinically improving. BS improved 06/16/18 through prior evening following changes. (7) Morbid Obesity: Weight loss and lifestyle changes will be encouraged, nutrition consulted following. (8) Anxiety and Depression: Maintained on home citalopram regimen. (9) History of Tobacco use: Encourage continued cessation. (10) Hypertension: BP low normal, held. (11) Hyperlipidemia: Continued on home statin. (12) GERD: PPI. (13) PATRICK: Currently intubated, sedated. (14) DVT Prophylaxis: SCDs, renally dosed lovenox which will need to be held for AM procedure. Code Visit Inpatient E&M: 90279 Subs Hosp L2
[2018-06-16] MEDS: Insulin Lispro 100 UNIT/ML INSULN.PEN SC ×7 (08:09→22:37)
[2018-06-16] MEDS: Gabapentin 300 MG Capsule PO ×2 (08:10→17:15)
[2018-06-16] MEDS: NINTEDANIB ESYLATE 150 MG CAPSULE PO ×2 (08:11→21:23)
[2018-06-16] MEDS: predniSONE 20 MG Tablet PO (08:12)
[2018-06-16] MEDS: Glycerin/Hypromellose/PEG400 15 ml Bottle 1 DRP RIGHT EYE ×2 (10:29→22:35)
[2018-06-16] MEDS: Citalopram 40 MG TABLET PO (10:30)
[2018-06-16] MEDS: Glucerna Shake 120 ML LIQUID PO ×3 (10:31→17:15)
[2018-06-16] MEDS: prednisoLONE eye drops (5 mL) 1 DROP OPTH.BTL 2 DRP LEFT EYE (10:31)
[2018-06-16] MEDS: Pantoprazole Sodium 40 MG Tablet PO (10:32)
[2018-06-16] MEDS: Ipratropium/Albuterol Sulfate 3 ML AMPUL.NEB INHALATION ×3 (11:12→20:12)
[2018-06-16 11:41] LABS: Bedside Glucose 282 mg/dL (70-110)
[2018-06-16 15:51] LABS: Bedside Glucose 428 mg/dL (70-110)
--- NOTE | 2018-06-16 16:08 | NURSING ---
Right IJ removed per order. Tip intact. Pressure held for 5 minutes. Vaseline guaze, 2x2 and tegaderm applied overtop. Instructed to lie flat for 30 minutes. Verbalizes understanding.
--- NOTE | 2018-06-16 21:39 | NURSING ---
This RN documented that urinary catheter was discontinued but it was done on 06/15/18 on daysarft. RN reported that patient had urine output, was unable to measure due to being mixed with bowel movement. Patient is urinating at this time without any problems or retention.
--- NOTE | 2018-06-16 22:30 | NURSING ---
Patient refused cpap machine while sleeping tonight.
[2018-06-16] MEDS: Cyclopentolate 1% 2 ML Bottle 1 DRP LEFT EYE (22:35)
[2018-06-16] MEDS: Atorvastatin Calcium 40 MG Tablet PO (22:36)
[2018-06-16] MEDS: MELATONIN 3 MG TABLET PO (22:36)
[2018-06-16 22:56] LABS: Bedside Glucose 369 mg/dL (70-110)
[2018-06-17] VITALS (22 sets, daily range): BP systolic 96–155; BP diastolic 32–79; PULSE 36–66; RESP 12–20; TEMP 36.1–36.7; O2SAT 92–99; BMI 51.5; BMI 46.3
[2018-06-17] MEDS: 0.9% NaCl Peripheral Flush Adult/Peds IV ×2 (04:35→04:37)
[2018-06-17 04:55] LABS: International Normalized Ratio 1.1; Prothrombin Time (Protime)PT. 14.1 SECONDS (11.7-14.9)
[2018-06-17 04:56] LABS: Partial Thromboplast Time 25.1 Seconds (24.1-36.2)
[2018-06-17 04:58] LABS: Absolute Lymphocyte Count 2.93 X10^3/ul (0.83-4.51); Absolute Neutrophil Count 9.6 X10^3/uL (2.0-7.7); Basophil# 0.01 X10^3/uL; Basophil% 0.1 % (0-1); Eosinophil# 0.22 X10^3/uL; Eosinophils% 1.6 % (0-5); Hematocrit 24.2 % (37-47); Lymphocyte # 2.93 X10^3/ul (4.0); Lymphocyte % 21.2 % (19-41); Mean Corp Hgb Conc 33.1 g/gl (32-36); Mean Corpuscular Hgb 30.9 pg (27.0-32.0); Mean Corpuscular Volume 93.4 fL (81-99); Mean Platelet Vol. 9.7 fl (6.2-12.0); Monocyte# 0.98 X10^3/uL; Monocyte% 7.1 % (0-10); Neutrophil # 9.56 X10^3/uL (2.7-7.7); Neutrophil % 69.3 % (47-70); POSITIVE COUNT NO; POSITIVE DIFFERENTIAL NO; POSITIVE MORPHOLOGY NO; Platelet Count 230 K/mm3 (150-450); RBC Distribution Width CV 14.4 % (11.6-14.6); RBC Distribution Width SD 48.8 fl (35.1-43.9); Red Blood Count 2.59 M/mm3 (4.2-5.4); White Blood Count 13.8 K/mm3 (4.4-11.0)
[2018-06-17 05:12] LABS: Anion Gap 13 (5-15); BUN 82 mg/dL (7-18); BUN/Creat Ratio 20.9 RATIO (10-20); Calcium,Total 8.5 mg/dL (8.5-10.1); Chloride 92 mmol/L (98-107); Creatinine, Serum 3.92 mg/dL (0.55-1.02); EST Glomerular Filtration Rate 12 mL/min (>60); Est Glom Filt Rate - Afr Amer 15 mL/min (>60); Estimated Creatinine Clearance 13.05 ml/min; Glucose 167 mg/dL (74-106); Potassium 4.2 mmol/L (3.5-5.1); Sodium Level 131 mmol/L (136-145)
--- NOTE | 2018-06-17 05:55 | EKG12_ITS ---
Test Reason : RHYTHM Blood Pressure : / mmHG Vent. Rate : 043 BPM Atrial Rate : 043 BPM P-R Int : 140 ms QRS Dur : 116 ms QT Int : 520 ms P-R-T Axes : 000 034 052 degrees QTc Int : 439 ms Marked sinus bradycardia with Premature atrial complexes Incomplete right bundle branch block Nonspecific T wave abnormality Abnormal ECG Confirmed by VINNIE FALK, RICH ([id number]), school photograph editor SHERRY ROGER ([id number]) on 06/24/2018 12:19:22 PM Referred By: EUGENE Confirmed By:RICH BIRMINGHAM MD
[2018-06-17 06:55] LABS: Bedside Glucose 156 mg/dL (70-110)
[2018-06-17] MEDS: Ipratropium/Albuterol Sulfate 3 ML AMPUL.NEB INHALATION ×3 (07:17→20:30)
[2018-06-17] MEDS: Glycerin/Hypromellose/PEG400 15 ml Bottle 1 DRP RIGHT EYE ×2 (07:42→22:27)
[2018-06-17] MEDS: prednisoLONE eye drops (5 mL) 1 DROP OPTH.BTL 2 DRP LEFT EYE (07:42)
--- NOTE | 2018-06-17 08:21 | PCM.PN.SRG ---
Patient Problems: Active and Suspected Problems Severe sepsis (Acute) Hyperkalemia (Acute) Metabolic acidosis (Acute) Subjective: Patient had no new complaints this morning. Right temporary dialysis catheter was removed without incident yesterday evening. - Physical Exam General: Alert, Oriented x3, Cooperative Neck: No JVD, - - No bleeding or swelling at the right temporary dialysis catheter site. Patient has left triple-lumen IJ Abdomen: Soft, Non Tender, Obese Vital Signs Temp Pulse Resp BP Pulse Ox 97.6 F L 50 L 16 129/49 H 92 06/17/18 04:02 06/17/18 07:17 06/17/18 07:17 06/17/18 04:02 06/17/18 07:17 Oxygen Flow Rate (L/min) 2 Oxygen Delivery Method Nasal Cannula Weight: 278 lb 10.629 oz Body Mass Index (BMI) 51.5 Finger Stick Blood Glucose 383 Intake and Output for Last 24 Hours 06/15/18 06/16/18 06/17/18 23:59 23:59 23:59 Intake Total 960 / 960 1080 / 1080 Output Total 3200 / 3200 Balance -2240 / -2240 1080 / 1080 Laboratory Tests Past 24 Hrs 06/17/18 06/17/18 06/17/18 04:35 04:35 04:35 WBC 13.8 H RBC 2.59 L Hgb 8.0 L Hct 24.2 L MCV 93.4 MCH 30.9 MCHC 33.1 RDW 14.4 RDW Differential 48.8 H Plt Count 230 MPV 9.7 Immature Gran % (Auto) 0.700 Neut % (Auto) 69.3 Lymph % (Auto) 21.2 Morgan % (Auto) 7.1 Eos % (Auto) 1.6 Baso % (Auto) 0.1 Absolute Neuts (auto) 9.6 H Absolute Lymphs (auto) 2.93 Total Counted Not Reportable PT 14.1 INR 1.1 APTT 25.1 Sodium 131 L Potassium 4.2 Chloride 92 L Carbon Dioxide 26.0 Anion Gap 13 BUN 82 H Creatinine 3.92 H Estim Creat Clear Calc 13.05 Est GFR (MDRD) Af Amer 15 L Est GFR (MDRD) Non-Af 12 L BUN/Creatinine Ratio 20.9 H Glucose 167 H Hemoglobin A1c Calcium 8.5 06/17/18 04:35 WBC RBC Hgb Hct MCV MCH MCHC RDW RDW Differential Plt Count MPV Immature Gran % (Auto) Neut % (Auto) Lymph % (Auto) Morgan % (Auto) Eos % (Auto) Baso % (Auto) Absolute Neuts (auto) Absolute Lymphs (auto) Total Counted PT INR APTT Sodium Potassium Chloride Carbon Dioxide Anion Gap BUN Creatinine Estim Creat Clear Calc Est GFR (MDRD) Af Amer Est GFR (MDRD) Non-Af BUN/Creatinine Ratio Glucose Hemoglobin A1c Pending Calcium POC Glucose 06/17/18 06/16/18 06/16/18 06:47 21:26 15:47 POC Glucose 156 H 369 H 428 H 06/16/18 11:25 POC Glucose 282 H Medical Necessity - Tobacco Use Smoking Status: Former smoker Tobacco Use: Cigarettes Assessment/Plan All Active Problems Severe sepsis (Acute) Hyperkalemia (Acute) Metabolic acidosis (Acute) Tobacco use disorder (Resolved) Cocaine dependence, episodic (Resolved) 63-year-old female with acute renal insufficiency 1. I was asked to see the patient to place a tunneled dialysis catheter for outpatient dialysis until the patient's kidney function improves. Patient had a temporary dialysis catheter and was receiving dialysis in the hospital. I have asked that the catheter be removed I will place a tunneled dialysis catheter today in the operating room. I explained the procedure in detail to the patient and her . I expand the risks including but not limited to bleeding, infection, pneumothorax, aspiration, need to be intubated if she is unable to keep an O2 saturation with monitored anesthesia care. Patient understands the risks and is willing to proceed with surgery. Ubaldo Juarez MD Pager: [facility] [address] [place] [address], [address] [place] [address] Office:
--- NOTE | 2018-06-17 09:31 | NURSING ---
0845-DR. COCHRAN UP ON FLOOR AND UPDATED ON PT'S HR 36 OVERNIGHT. NO NEW ORDERS. INSULIN TO BE HELD THIS AM D/T NPO FOR DIALYSIS CATHETER PER
[2018-06-17] MEDS: CHLORHEXIDINE GLUC 2% CLOTH 1 EACH TOWELETTE TOPICAL (10:50)
--- NOTE | 2018-06-17 10:53 | PCM.PN.REN ---
Patient Problems: Active and Suspected Problems Severe sepsis (Acute) Hyperkalemia (Acute) Metabolic acidosis (Acute) Subjective: no new complaints - Physical Exam General: Alert, Oriented x3, Cooperative HEENT: Atraumatic, PERRLA, EOMI, Normocephalic Neck: Supple, No JVD, Negative Carotid Bruits Lungs: Clear to auscultation, Normal air movement Cardiovascular: Regular rate, No murmurs Abdomen: Bowel Sounds Present, Soft, Non Tender Extremities: No edema, Capillary Refill Less than 3 Seconds Skin: No rashes, No breakdown Musculoskeletal: No Tenderness to Palpation of Joints or Extremities Neurological: Cranial nerves II-XII grossly intact Psych/Mental Status: Normal Affect, Appropriate Vital Signs Temp Pulse Resp BP Pulse Ox 97.4 F L 52 L 16 128/63 H 94 06/17/18 08:32 06/17/18 08:32 06/17/18 08:32 06/17/18 08:32 06/17/18 08:32 Oxygen Flow Rate (L/min) 2 Oxygen Delivery Method Nasal Cannula Weight: 126.4 kg Body Mass Index (BMI) 51.5 Finger Stick Blood Glucose 383 Intake and Output for Last 24 Hours 06/15/18 06/16/18 06/17/18 23:59 23:59 23:59 Intake Total 960 / 960 1080 / 1080 Output Total 3200 / 3200 Balance -2240 / -2240 1080 / 1080 Laboratory Tests Past 24 Hrs 06/17/18 06/17/18 06/17/18 04:35 04:35 04:35 WBC 13.8 H RBC 2.59 L Hgb 8.0 L Hct 24.2 L MCV 93.4 MCH 30.9 MCHC 33.1 RDW 14.4 RDW Differential 48.8 H Plt Count 230 MPV 9.7 Immature Gran % (Auto) 0.700 Neut % (Auto) 69.3 Lymph % (Auto) 21.2 [place] % (Auto) 7.1 Eos % (Auto) 1.6 Baso % (Auto) 0.1 Absolute Neuts (auto) 9.6 H Absolute Lymphs (auto) 2.93 Total Counted Not Reportable PT 14.1 INR 1.1 APTT 25.1 Sodium 131 L Potassium 4.2 Chloride 92 L Carbon Dioxide 26.0 Anion Gap 13 BUN 82 H Creatinine 3.92 H Estim Creat Clear Calc 13.05 Est GFR (MDRD) Af Amer 15 L Est GFR (MDRD) Non-Af 12 L BUN/Creatinine Ratio 20.9 H Glucose 167 H Hemoglobin A1c Calcium 8.5 06/17/18 04:35 WBC RBC Hgb Hct MCV MCH MCHC RDW RDW Differential Plt Count MPV Immature Gran % (Auto) Neut % (Auto) Lymph % (Auto) [place] % (Auto) Eos % (Auto) Baso % (Auto) Absolute Neuts (auto) Absolute Lymphs (auto) Total Counted PT INR APTT Sodium Potassium Chloride Carbon Dioxide Anion Gap BUN Creatinine Estim Creat Clear Calc Est GFR (MDRD) Af Amer Est GFR (MDRD) Non-Af BUN/Creatinine Ratio Glucose Hemoglobin A1c Pending Calcium POC Glucose 06/17/18 06/16/18 06/16/18 06:47 21:26 15:47 POC Glucose 156 H 369 H 428 H 06/16/18 11:25 POC Glucose 282 H Medical Necessity - Tobacco Use Smoking Status: Former smoker Tobacco Use: Cigarettes Assessment/Plan All Active Problems Severe sepsis (Acute) Hyperkalemia (Acute) Metabolic acidosis (Acute) Tobacco use disorder (Resolved) Cocaine dependence, episodic (Resolved) 1-acute kidney injury on chronic kidney disease. Patient has chronic kidney disease stage IV. MARIAN is most probably from sepsis induced ATN. HD started last . RIJ temporary line removed. scheduled for a tunneled line today called outpatient dialysis unit. she has a TTS spot first shift HD tomorrow can dc tomorrow after dialysis most likely she will recover kidney function soon
--- NOTE | 2018-06-17 10:58 | CASEMGMT ---
Message left for Janet at [facility] admissions to call this RN CM when able in regards to updates on referral at this time. This RN CM did speak with [facility] and they do not have any updates either at this time. Gonzalez RN CM
[2018-06-17 11:40] LABS: Bedside Glucose 190 mg/dL (70-110)
[2018-06-17] MEDS: Heparin 10,000 UNITS/10 ML Vial 10000 UNITS (13:55)
--- NOTE | 2018-06-17 14:08 | RAD_ITS ---
STUDY: X-RAY CHEST REASON FOR EXAM: Female, 63 years old. Dialysis catheter placement. TECHNIQUE: Single AP portable view of the chest. COMPARISON: Comparison is made with prior study dated June 07, 2018. FINDINGS: A right-sided double-lumen dialysis catheter has been placed. The tip is at the junction of the superior vena cava and right atrium. Stable appearance of the left internal jugular venous catheter. The endotracheal tube and nasogastric tube have been removed. EKG arteries are seen. Stable vascular congestion and CHF. There is no demonstrated pleural abnormality. There is moderate cardiac enlargement. Normal mediastinum and carolyn. Normal visualized pulmonary arteries. Normal visualized aortic arch and descending thoracic aorta. Normal visualized thoracic spine. Normal visualized ribs, clavicles, and shoulders. There is no demonstrated abnormality of the visualized soft tissue structures of the upper abdomen. RAD/CXR for Line Placement IMPRESSION: The tip of the right subclavian dual-chamber dialysis catheter is at the junction of the superior vena cava and right atrium. Cardiac megaly and CHF. Electronically Signed: Eleazar Owens, at 15:26 EDT , Service support ,
--- NOTE | 2018-06-17 14:37 | PCM.OPRPT ---
Problem List (1) Acute kidney injury superimposed on chronic kidney disease Status: Chronic Report of Operation Date of Procedure: 06/17/18 Pre-Operative Diagnosis: Acute on chronic renal failure Post-Operative Diagnosis: Same Surgery/Procedure Performed:: Ultrasound and fluoroscopy-guided right tunneled dialysis catheter placement utilizing right IJ Description of Procedure: Patient was brought back to the operating room and MAC anesthesia was induced. The right neck was prepped and draped in the usual sterile fashion. Ultrasound guidance was used to localize the right IJ and local anesthetic was injected under the skin. Next the 11 blade scalpel was used to make a madelni in the skin and then the introducer needle was placed into the right IJ under ultrasound guidance. Guidewire was placed into the superior vena cava under fluoroscopy guidance. Next the needle was removed and serial dilators were used. The last dilator was removed and the introducer peel away sheath was placed into the right IJ under fluoroscopy guidance. Next a skin marking was localized inferior to the clavicle and anesthetized with lidocaine and a small incision was made. The tunneler and catheter placed through the chest incision and exited the neck incision. Next the catheter was placed into the peel-away sheath and the peel-away sheath was peeled away. The catheter was advanced under the skin and fluoroscopy views showed that it was in the superior vena cava with no kinking. The cuff was under the skin. Next both ports were aspirated and flushed with saline and there was good blood return and good flow. Both ports were then flushed with 2 cc of heparinized saline. Both ports were capped. The catheter was sutured to the skin using 3-0 silk suture and the neck incision was closed using 2 interrupted 3-0 Vicryl sutures. A silver dressing was placed at the skin entrance site and dressings were applied to the port entry site as well as the skin incision. Patient tolerated the procedure well was brought to PACU in stable condition. - Admit VTE Documentation VTE Mechan Device Prophylaxis: SCD's
--- NOTE | 2018-06-17 14:40 | OP.PCM_ITS ---
Problem List (1) Acute kidney injury superimposed on chronic kidney disease Status: Chronic Report of Operation Date of Procedure: 06/17/18 Pre-Operative Diagnosis: Acute on chronic renal failure Post-Operative Diagnosis: Same Surgery/Procedure Performed:: Ultrasound and fluoroscopy-guided right tunneled dialysis catheter placement utilizing right IJ Description of Procedure: Patient was brought back to the operating room and MAC anesthesia was induced. The right neck was prepped and draped in the usual sterile fashion. Ultrasound guidance was used to localize the right IJ and local anesthetic was injected under the skin. Next the 11 blade scalpel was used to make a madelin in the skin and then the introducer needle was placed into the right IJ under ultrasound guidance. Guidewire was placed into the superior vena cava under fluoroscopy guidance. Next the needle was removed and serial dilators were used. The last dilator was removed and the introducer peel away sheath was placed into the right IJ under fluoroscopy guidance. Next a skin marking was localized inferior to the clavicle and anesthetized with lidocaine and a small incision was made. The tunneler and catheter placed through the chest incision and exited the neck incision. Next the catheter was placed into the peel-away sheath and the peel- away sheath was peeled away. The catheter was advanced under the skin and fluoroscopy views showed that it was in the superior vena cava with no kinking. The cuff was under the skin. Next both ports were aspirated and flushed with saline and there was good blood return and good flow. Both ports were then flushed with 2 cc of heparinized saline. Both ports were capped. The catheter was sutured to the skin using 3-0 silk suture and the neck incision was closed using 2 interrupted 3-0 Vicryl sutures. A silver dressing was placed at the skin entrance site and dressings were applied to the port entry site as well as the skin incision. Patient tolerated the procedure well was brought to PACU in stable condition. - Admit VTE Documentation VTE Mechan Device Prophylaxis: SCD's
--- NOTE | 2018-06-17 14:44 | CASEMGMT ---
Patient's dialysis chair time is T,TH,Sat at 650 am. SW notified Oksana at [facility] and that patient can now go by wc van. NIKOLE will check with patient's significant other to see if he can take her on Saturdays as the 2 transport companies [employer] has do not transport wc vans to dialysis on Saturdays. Christy ALEXANDRA MSW
[2018-06-17 15:01] LABS: Hemoglobin A1c 7.2 % (4.2-6.3)
--- NOTE | 2018-06-17 16:07 | NURSING ---
pt resting in bed with eyes closed and hr 39 on monitor. called for ekg and dr. vallejo notified with no new orders. will monitor
[2018-06-17 16:21] LABS: Bedside Glucose 190 mg/dL (70-110)
--- NOTE | 2018-06-17 16:26 | EKG12_ITS ---
Test Reason : AM Blood Pressure : / mmHG Vent. Rate : 049 BPM Atrial Rate : 049 BPM P-R Int : 178 ms QRS Dur : 118 ms QT Int : 494 ms P-R-T Axes : 000 020 066 degrees QTc Int : 446 ms Sinus bradycardia with Premature atrial complexes Left ventricular hypertrophy Incomplete right bundle branch block Abnormal ECG Confirmed by VINNIE FALK, RICH ([id number]), photo editor SHERRY ROGER ([id number]) on 06/24/2018 12:23:07 PM Referred By: Confirmed By:RICH BIRMINGHAM MD
--- NOTE | 2018-06-17 16:33 | PCM.PN.HOSP ---
Patient Problems: Active and Suspected Problems Severe sepsis (Acute) Hyperkalemia (Acute) Metabolic acidosis (Acute) Subjective: She has been doing well with no events overnight, she was seen after having a procedure for a tunneled dialysis catheter, so she is somnolent today Vitals/I&O's: Vital Signs Temp Pulse Resp BP Pulse Ox 97.5 F L 50 L 14 122/57 H 97 06/17/18 14:50 06/17/18 14:50 06/17/18 14:50 06/17/18 14:50 06/17/18 14:50 Oxygen Flow Rate (L/min) 2 Oxygen Delivery Method Nasal Cannula Weight: 278 lb 10.629 oz Body Mass Index (BMI) 46.3 Finger Stick Blood Glucose 383 Intake and Output for Last 24 Hours 06/15/18 06/16/18 06/17/18 23:59 23:59 23:59 Intake Total 960 / 960 1080 / 1080 250 / 250 Output Total 3200 / 3200 Balance -2240 / -2240 1080 / 1080 250 / 250 General: No apparent distress, Lethargic HEENT: Atraumatic, PERRLA, Normocephalic Oral: Moist Mucosa Neck: Supple, No JVD Lungs: Clear to auscultation, Normal air movement, No rhonchi, No wheeze, No rales, Diminished Cardiovascular: Regular rate, Regular Rhythm, Normal S1, Normal S2, No murmurs Abdomen: Soft, Non Tender, Non-Distended, No Hepato-splenomegaly Extremities: No edema, Capillary Refill Less than 3 Seconds Skin: No rashes, No breakdown Neurological: Neuro grossly intact, Sensory exam intact to light touch and pain Psych/Mental Status: Normal Affect, Appropriate Laboratory Results 06/16/18 21:26: POC Glucose 369 H 06/17/18 04:35: WBC 13.8 H, RBC 2.59 L, Hgb 8.0 L, Hct 24.2 L, MCV 93.4, MCH 30.9, MCHC 33.1, RDW 14.4, RDW Differential 48.8 H, Plt Count 230, MPV 9.7, Immature Gran % (Auto) 0.700, Neut % (Auto) 69.3, Lymph % (Auto) 21.2, [place] % (Auto) 7.1, Eos % (Auto) 1.6, Baso % (Auto) 0.1, Absolute Neuts (auto) 9.6 H, Absolute Lymphs (auto) 2.93, Total Counted Not Reportable 06/17/18 04:35: Sodium 131 L, Potassium 4.2, Chloride 92 L, Carbon Dioxide 26.0, Anion Gap 13, BUN 82 H, Creatinine 3.92 H, Estim Creat Clear Calc 13.05, Est GFR (MDRD) Af Amer 15 L, Est GFR (MDRD) Non-Af 12 L, BUN/Creatinine Ratio 20.9 H, Glucose 167 H, Calcium 8.5 06/17/18 04:35: PT 14.1, INR 1.1, APTT 25.1 06/17/18 04:35: Hemoglobin A1c 7.2 H 06/17/18 06:47: POC Glucose 156 H 06/17/18 11:36: POC Glucose 190 H 06/17/18 16:14: POC Glucose 190 H Current Medications Acetaminophen (Tylenol) 650 mg PO Q6H PRN PRN PRN Reason: fever over 100.4 or pain Albuterol Sulfate (Ventolin Aerosols) 2.5 mg INHALATION Q2H PRN PRN PRN Reason: SHORTNESS OF BREATH Last Admin: 06/06/18 05:07 Dose: 2.5 mg Albuterol/Ipratropium (Duoneb) 3 ml INHALATION Q4HWA.RT [facility] Last Admin: 06/17/18 14:30 Dose: Not Given Atorvastatin Calcium (Lipitor) 40 mg PO QHS [facility] Last Admin: 06/16/18 22:36 Dose: 40 mg Chlorhexidine Gluconate () 1 each TOPICAL DAILY [facility] Last Admin: 06/17/18 10:50 Dose: 1 each Citalopram Hydrobromide (Celexa) 40 mg PO DAILY [facility] Last Admin: 06/16/18 10:30 Dose: 40 mg Cyclopentolate HCl (Cyclogyl) 1 drop LEFT EYE QHS [facility] Last Admin: 06/16/18 22:35 Dose: 1 drop Dextrose (D50w Syringe) 0 gm IV X1 PRN; Protocol PRN Reason: Hypoglycemia Dextrose (D50w Syringe) 0 gm IV X1 PRN; Protocol PRN Reason: Hypoglycemia Enoxaparin Sodium (Lovenox) 30 mg SC DAILY@0600 [facility] Last Admin: 06/17/18 03:26 Dose: Not Given Gabapentin (Neurontin) 300 mg PO BIDCM [facility] Last Admin: 06/16/18 17:15 Dose: 300 mg Glucagon () 1 mg IM .X1 PRN PRN Reason: Hypoglycemia Glucagon () 1 mg IM .X1 PRN PRN Reason: Hypoglycemia Heparin Sodium (Porcine) () 2,500 units IV UD PRN PRN Reason: HEPARIN FLUSH Last Admin: 06/07/18 12:00 Dose: 2,500 units Insulin Glargine (Lantus (Bkc)) 35 units SC [facility] Last Admin: 06/16/18 22:38 Dose: 35 u Insulin Human Lispro (Humalog Kwikpen ([facility])) 5 unit SC TIDAC [facility] Last Admin: 06/17/18 09:29 Dose: Not Given Insulin Human Lispro (Humalog Kwikpen (Bk)) 0 unit SC ACHS [facility]; Protocol Last Admin: 06/17/18 09:29 Dose: Not Given Melatonin (Melatonin) 3 mg PO QHS [facility] Last Admin: 06/16/18 22:36 Dose: 3 mg Ondansetron HCl (Zofran) 4 mg IV Q6H PRN PRN PRN Reason: NAUSEA/VOMITING Last Admin: 06/13/18 13:27 Dose: 4 mg Pantoprazole Sodium (Protonix) 40 mg PO DAILY [facility] Last Admin: 06/16/18 10:32 Dose: 40 mg Polyethylene Glycol (Miralax) 17 gm PO BID [facility] Last Admin: 06/17/18 10:50 Dose: Not Given Prednisolone Acetate (Pred Forte Eye Drops (5 Ml)) 2 drop LEFT EYE DAILY [facility] Last Admin: 06/17/18 07:42 Dose: 2 drop Prednisone () 20 mg PO DAILY@0800 [facility] Last Admin: 06/16/18 08:12 Dose: 20 mg Promethazine HCl (Phenergan) 6.25 mg IV Q4H PRN PRN PRN Reason: NAUSEA/VOMITING Last Admin: 06/13/18 10:17 Dose: 6.25 mg Senna/Docusate Sodium (Senokot-S, Jade-Colace) 2 tablet PO DAILY PRN PRN PRN Reason: CONSTIPATION Last Admin: 06/14/18 14:15 Dose: 2 tablet Sodium Chloride () 5 - 15 ml IV UD PRN PRN Reason: SALINE FLUSH Last Admin: 06/17/18 04:37 Dose: 10 ml Sodium Chloride () 10 ml IV UD PRN PRN Reason: Dialysis Catheter Flush Sodium Chloride () 10 - 40 ml IV UD PRN PRN Reason: MULTILUMEN/HICMAN CATH FLUSH Last Admin: 06/16/18 05:48 Dose: 20 ml Medical Necessity - Tobacco Use Smoking Status: Former smoker Tobacco Use: Cigarettes Assessment/Plan All Active Problems Severe sepsis (Acute) Hyperkalemia (Acute) Metabolic acidosis (Acute) Tobacco use disorder (Resolved) Cocaine dependence, episodic (Resolved) 1. Sepsis 2/2 acute on chronic hypoxic respiratory failure secondary to possible bilateral pneumonia/possible ARDS/possible acute COPD exacerbation/PATRICK -Was treated for her pneumonia with Rocephin and azithromycin, and she is completed both courses -Her respiratory status has returned to almost baseline, and she is on 2 L nasal cannula at the moment -Continue with her DuoNeb and prednisone, she is currently being tapered and at 20 mg -Appreciate pulmonology input 2. Acute on chronic diastolic CHF exacerbation with possible transient paroxysmal A. fib/HTN/HLD -Appreciate cardiology recommendation -She did have intermediate cardiac enzymes at one point and cardiology felt that it was more of a demand issue -Also her junctional bradycardia was felt to be secondary to her hyperkalemia which is currently being treated with dialysis -She is on a statin but not on aspirin/beta-tommy because of her worsening anemia and low blood pressures -She did have an echo during the episode with A. fib and return to bradycardia with a junctional rhythm, she was found to have an EF of 65% with a moderately dilated right ventricle moderately enlarged left atrium and a moderately enlarged right atrium with RVSP of 56 and oriented mercury and moderate pulmonary hypertension 3. Acute oliguric renal failure with CKD stage IV 4/anemia of chronic disease -She has been undergoing intermittent dialysis during her stay, and over the weekend because her creatinine and her BUN worsened she had a tunneled hemodialysis catheter placed as she will need short-term outpatient hemodialysis -She has been accepted to [facility] for rehab and they are aware of the hemodialysis catheter and the need for hemodialysis -She has been anemic since about 2014, with a hemoglobin of 11.3. On admission she was 9.8 and is now 8.0 -This is likely secondary to her chronic kidney disease and I will leave it up to nephrology if they feel that she would benefit from Epogen versus his iron. 4. DM 2 4/morbid obesity -We will continue to primary substance abuse counselor lifestyle modifications with weight loss -Part of her blood sugar elevation is going to be secondary to her prednisone -Continue with Lantus 35 units twice daily and sliding scale insulin 6. Anxiety/depression -Stable -continue citalopram 7. GERD -Stable -Continue with PPI DVT: Lovenox Code Visit Inpatient E&M: 81191 Subs Hosp L2
--- NOTE | 2018-06-17 17:00 | PN_ITS ---
Patient Problems: Active and Suspected Problems Severe sepsis (Acute) Hyperkalemia (Acute) Metabolic acidosis (Acute) Subjective: She has been doing well with no events overnight, she was seen after having a procedure for a tunneled dialysis catheter, so she is somnolent today Vitals/I&O's: Vital Signs Temp Pulse Resp BP Pulse Ox 97.5 F L 50 L 14 122/57 H 97 06/17/18 14:50 06/17/18 14:50 06/17/18 14:50 06/17/18 14:50 06/17/18 14:50 Oxygen Flow Rate (L/min) 2 Oxygen Delivery Method Nasal Cannula Weight: 278 lb 10.629 oz Body Mass Index (BMI) 46.3 Finger Stick Blood Glucose 383 Intake and Output for Last 24 Hours 06/15/18 06/16/18 06/17/18 23:59 23:59 23:59 Intake Total 960 / 960 1080 / 1080 250 / 250 Output Total 3200 / 3200 Balance -2240 / -2240 1080 / 1080 250 / 250 General: No apparent distress, Lethargic HEENT: Atraumatic, PERRLA, Normocephalic Oral: Moist Mucosa Neck: Supple, No JVD Lungs: Clear to auscultation, Normal air movement, No rhonchi, No wheeze, No rales, Diminished Cardiovascular: Regular rate, Regular Rhythm, Normal S1, Normal S2, No murmurs Abdomen: Soft, Non Tender, Non-Distended, No Hepato-splenomegaly Extremities: No edema, Capillary Refill Less than 3 Seconds Skin: No rashes, No breakdown Neurological: Neuro grossly intact, Sensory exam intact to light touch and pain Psych/Mental Status: Normal Affect, Appropriate Laboratory Results 06/16/18 21:26: POC Glucose 369 H 06/17/18 04:35: WBC 13.8 H, RBC 2.59 L, Hgb 8.0 L, Hct 24.2 L, MCV 93.4, MCH 30.9, MCHC 33.1, RDW 14.4, RDW Differential 48.8 H, Plt Count 230, MPV 9.7, Immature Gran % (Auto) 0.700, Neut % (Auto) 69.3, Lymph % (Auto) 21.2, Wilkinson % (Auto) 7.1, Eos % (Auto) 1.6, Baso % (Auto) 0.1, Absolute Neuts (auto) 9.6 H, Absolute Lymphs (auto) 2.93, Total Counted Not Reportable 06/17/18 04:35: Sodium 131 L, Potassium 4.2, Chloride 92 L, Carbon Dioxide 26.0, Anion Gap 13, BUN 82 H, Creatinine 3.92 H, Estim Creat Clear Calc 13.05, Est GFR (MDRD) Af Amer 15 L, Est GFR (MDRD) Non-Af 12 L, BUN/Creatinine Ratio 20.9 H, Glucose 167 H, Calcium 8.5 06/17/18 04:35: PT 14.1, INR 1.1, APTT 25.1 06/17/18 04:35: Hemoglobin A1c 7.2 H 06/17/18 06:47: POC Glucose 156 H 06/17/18 11:36: POC Glucose 190 H 06/17/18 16:14: POC Glucose 190 H Current Medications Acetaminophen (Tylenol) 650 mg PO Q6H PRN PRN PRN Reason: fever over 100.4 or pain Albuterol Sulfate (Ventolin Aerosols) 2.5 mg INHALATION Q2H PRN PRN PRN Reason: SHORTNESS OF BREATH Last Admin: 06/06/18 05:07 Dose: 2.5 mg Albuterol/Ipratropium (Duoneb) 3 ml INHALATION Q4HWA.RT [facility]PL[facility] Last Admin: 06/17/18 14:30 Dose: Not Given Atorvastatin Calcium (Lipitor) 40 mg PO QHS [facility] Last Admin: 06/16/18 22:36 Dose: 40 mg Chlorhexidine Gluconate () 1 each TOPICAL DAILY [facility] Last Admin: 06/17/18 10:50 Dose: 1 each Citalopram Hydrobromide (Celexa) 40 mg PO DAILY [facility] Last Admin: 06/16/18 10:30 Dose: 40 mg Cyclopentolate HCl (Cyclogyl) 1 drop LEFT EYE QHS [facility] Last Admin: 06/16/18 22:35 Dose: 1 drop Dextrose (D50w Syringe) 0 gm IV X1 PRN; Protocol PRN Reason: Hypoglycemia Dextrose (D50w Syringe) 0 gm IV X1 PRN; Protocol PRN Reason: Hypoglycemia Enoxaparin Sodium (Lovenox) 30 mg SC DAILY@0600 [facility] Last Admin: 06/17/18 03:26 Dose: Not Given Gabapentin (Neurontin) 300 mg PO BIDCM [facility] Last Admin: 06/16/18 17:15 Dose: 300 mg Glucagon () 1 mg IM .X1 PRN PRN Reason: Hypoglycemia Glucagon () 1 mg IM .X1 PRN PRN Reason: Hypoglycemia Heparin Sodium (Porcine) () 2,500 units IV UD PRN PRN Reason: HEPARIN FLUSH Last Admin: 06/07/18 12:00 Dose: 2,500 units Insulin Glargine (Lantus (Bkc)) 35 units SC [facility]PLAC[facility] Last Admin: 06/16/18 22:38 Dose: 35 u Insulin Human Lispro (Humalog Kwikpen ([facility])) 5 unit SC TIDAC REPLACED [facility] Last Admin: 06/17/18 09:29 Dose: Not Given Insulin Human Lispro (Humalog Kwikpen (Bk)) 0 unit SC ACHS [facility]PL[facility]; Protocol Last Admin: 06/17/18 09:29 Dose: Not Given Melatonin (Melatonin) 3 mg PO QHS [facility] Last Admin: 06/16/18 22:36 Dose: 3 mg Ondansetron HCl (Zofran) 4 mg IV Q6H PRN PRN PRN Reason: NAUSEA/VOMITING Last Admin: 06/13/18 13:27 Dose: 4 mg Pantoprazole Sodium (Protonix) 40 mg PO DAILY [facility] Last Admin: 06/16/18 10:32 Dose: 40 mg Polyethylene Glycol (Miralax) 17 gm PO BID [facility] Last Admin: 06/17/18 10:50 Dose: Not Given Prednisolone Acetate (Pred Forte Eye Drops (5 Ml)) 2 drop LEFT EYE DAILY [facility]PL[facility] Last Admin: 06/17/18 07:42 Dose: 2 drop Prednisone () 20 mg PO DAILY@0800 [facility]PL[facility] Last Admin: 06/16/18 08:12 Dose: 20 mg Promethazine HCl (Phenergan) 6.25 mg IV Q4H PRN PRN PRN Reason: NAUSEA/VOMITING Last Admin: 06/13/18 10:17 Dose: 6.25 mg Senna/Docusate Sodium (Senokot-S, Jade-Colace) 2 tablet PO DAILY PRN PRN PRN Reason: CONSTIPATION Last Admin: 06/14/18 14:15 Dose: 2 tablet Sodium Chloride () 5 - 15 ml IV UD PRN PRN Reason: SALINE FLUSH Last Admin: 06/17/18 04:37 Dose: 10 ml Sodium Chloride () 10 ml IV UD PRN PRN Reason: Dialysis Catheter Flush Sodium Chloride () 10 - 40 ml IV UD PRN PRN Reason: MULTILUMEN/HICMAN CATH FLUSH Last Admin: 06/16/18 05:48 Dose: 20 ml Medical Necessity - Tobacco Use Smoking Status: Former smoker Tobacco Use: Cigarettes Assessment/Plan All Active Problems Severe sepsis (Acute) Hyperkalemia (Acute) Metabolic acidosis (Acute) Tobacco use disorder (Resolved) Cocaine dependence, episodic (Resolved) 1. Sepsis 2/2 acute on chronic hypoxic respiratory failure secondary to possible bilateral pneumonia/possible ARDS/possible acute COPD exacerbation/PATRICK -Was treated for her pneumonia with Rocephin and azithromycin, and she is completed both courses -Her respiratory status has returned to almost baseline, and she is on 2 L nasal cannula at the moment -Continue with her DuoNeb and prednisone, she is currently being tapered and at 20 mg -Appreciate pulmonology input 2. Acute on chronic diastolic CHF exacerbation with possible transient paroxysmal A. fib/HTN/HLD -Appreciate cardiology recommendation -She did have intermediate cardiac enzymes at one point and cardiology felt that it was more of a demand issue -Also her junctional bradycardia was felt to be secondary to her hyperkalemia which is currently being treated with dialysis -She is on a statin but not on aspirin/beta-tommy because of her worsening anemia and low blood pressures -She did have an echo during the episode with A. fib and return to bradycardia with a junctional rhythm, she was found to have an EF of 65% with a moderately dilated right ventricle moderately enlarged left atrium and a moderately enlarged right atrium with RVSP of 56 and oriented mercury and moderate pulmonary hypertension 3. Acute oliguric renal failure with CKD stage IV 4/anemia of chronic disease -She has been undergoing intermittent dialysis during her stay, and over the weekend because her creatinine and her BUN worsened she had a tunneled hemodialysis catheter placed as she will need short-term outpatient hemodialysis -She has been accepted to [facility] for rehab and they are aware of the hemodialysis catheter and the need for hemodialysis -She has been anemic since about 2014, with a hemoglobin of 11.3. On admission she was 9.8 and is now 8.0 -This is likely secondary to her chronic kidney disease and I will leave it up to nephrology if they feel that she would benefit from Epogen versus his iron. 4. DM 2 4/morbid obesity -We will continue to counselor aide lifestyle modifications with weight loss -Part of her blood sugar elevation is going to be secondary to her prednisone -Continue with Lantus 35 units twice daily and sliding scale insulin 6. Anxiety/depression -Stable -continue citalopram 7. GERD -Stable -Continue with PPI DVT: Lovenox Code Visit Inpatient E&M: 67335 Subs Hosp L2
[2018-06-17] MEDS: predniSONE 20 MG Tablet PO (17:05)
[2018-06-17] MEDS: Gabapentin 300 MG Capsule PO (17:05)
[2018-06-17] MEDS: Pantoprazole Sodium 40 MG Tablet PO (17:05)
[2018-06-17] MEDS: Citalopram 40 MG TABLET PO (17:05)
[2018-06-17] MEDS: NINTEDANIB ESYLATE 150 MG CAPSULE PO (17:07)
[2018-06-17] MEDS: Insulin Lispro 100 UNIT/ML INSULN.PEN SC ×3 (17:09→22:28)
[2018-06-17] MEDS: Cyclopentolate 1% 2 ML Bottle 1 DRP LEFT EYE (22:26)
[2018-06-17] MEDS: Atorvastatin Calcium 40 MG Tablet PO (22:29)
[2018-06-17] MEDS: MELATONIN 3 MG TABLET PO (22:29)
[2018-06-17 22:41] LABS: Bedside Glucose 300 mg/dL (70-110)
[2018-06-18] VITALS (21 sets, daily range): BP systolic 83–139; BP diastolic 59–72; PULSE 53–77; RESP 12–26; TEMP 36.6–37.3; O2SAT 94–99
[2018-06-18] MEDS: Enoxaparin 30 MG/0.3 ML Syringe SC (04:46)
[2018-06-18] MEDS: 0.9% NaCl Peripheral Flush Adult/Peds IV ×2 (05:00→05:02)
[2018-06-18 05:24] LABS: Absolute Neutrophil Count 11.9 X10^3/uL (2.0-7.7); Basophil# 0.02 X10^3/uL; Basophil% 0.1 % (0-1); Eosinophil# 0.13 X10^3/uL; Eosinophils% 0.9 % (0-5); Hematocrit 24.7 % (37-47); Hemoglobin 8.1 g/dl (12.0-15.0); Lymphocyte % 8.7 % (19-41); Mean Corp Hgb Conc 32.8 g/gl (32-36); Mean Corpuscular Hgb 31.2 pg (27.0-32.0); Mean Platelet Vol. 9.9 fl (6.2-12.0); Monocyte% 3.6 % (0-10); Neutrophil # 11.87 X10^3/uL (2.7-7.7); POSITIVE COUNT NO; POSITIVE DIFFERENTIAL NO; POSITIVE MORPHOLOGY NO; Platelet Count 237 K/mm3 (150-450); RBC Distribution Width CV 13.9 % (11.6-14.6); RBC Distribution Width SD 46.1 fl (35.1-43.9); White Blood Count 13.8 K/mm3 (4.4-11.0)
[2018-06-18 05:37] LABS: Anion Gap 11 (5-15); BUN 98 mg/dL (7-18); BUN/Creat Ratio 25.5 RATIO (10-20); Calcium,Total 8.8 mg/dL (8.5-10.1); Chloride 94 mmol/L (98-107); Creatinine, Serum 3.85 mg/dL (0.55-1.02); EST Glomerular Filtration Rate 13 mL/min (>60); Est Glom Filt Rate - Afr Amer 15 mL/min (>60); Estimated Creatinine Clearance 13.28 ml/min; Glucose 205 mg/dL (74-106); Potassium 4.8 mmol/L (3.5-5.1); Sodium Level 131 mmol/L (136-145)
[2018-06-18 07:01] LABS: Bedside Glucose 184 mg/dL (70-110)
[2018-06-18] MEDS: Ipratropium/Albuterol Sulfate 3 ML AMPUL.NEB INHALATION ×3 (07:37→20:15)
[2018-06-18] MEDS: Insulin Lispro 100 UNIT/ML INSULN.PEN SC ×4 (08:12→20:40)
[2018-06-18] MEDS: prednisoLONE eye drops (5 mL) 1 DROP OPTH.BTL 2 DRP LEFT EYE (08:13)
[2018-06-18] MEDS: Glycerin/Hypromellose/PEG400 15 ml Bottle 1 DRP RIGHT EYE ×2 (08:13→20:39)
--- NOTE | 2018-06-18 09:17 | CASEMGMT ---
This SAVANNAH PAULA received a call from Angélica at [facility] and she states that because pt only has MCR A then dialysis for acute renal failure would not be covered at this time because pt is not end stage renal failure and pt does not have MCR B coverage or any secondary insurance at this time. Advised her that pt did complete a JAVIER jayne this am and she states that it would have to be active for pt to be able to go to dialysis on the JAVIER. She states that pt has missed open enrollment for MCR B and will not be able to sign up until next enrollment period. But she does state that if pt becomes end stage then they would be able to get pt signed up for MCR B or vet pt for JAVIER at that time. She did state that another option would be for the pt to go to the SNF and then come to hospital for the dialysis and for the hospital to cover the cost. Dr. Hart and Rhoda SW aware at this time, voices understanding and Rhoda SW into room to speak with pt regarding all at this time. [place] SAVANNAH PAULA
--- NOTE | 2018-06-18 10:16 | PCM.PN.HOSP ---
Patient Problems: Active and Suspected Problems Severe sepsis (Acute) Hyperkalemia (Acute) Metabolic acidosis (Acute) Subjective: No issues overnight, she feels very well today and should be receiving dialysis shortly Vitals/I&O's: Vital Signs Temp Pulse Resp BP Pulse Ox 98.6 F 76 22 H 83/65 L 98 06/18/18 09:05 06/18/18 09:05 06/18/18 09:05 06/18/18 09:05 06/18/18 09:05 Oxygen Flow Rate (L/min) 3 Oxygen Delivery Method Nasal Cannula Weight: 275 lb 5.718 oz Body Mass Index (BMI) 46.3 Finger Stick Blood Glucose 383 Intake and Output for Last 24 Hours 06/16/18 06/17/18 06/18/18 23:59 23:59 23:59 Intake Total 1080 / 1080 1030 / 1030 Balance 1080 / 1080 1030 / 1030 General: Alert and oriented x3, no apparent distress, Lethargic HEENT: Atraumatic, PERRLA, Normocephalic Oral: Moist Mucosa Neck: Supple, No JVD Lungs: Clear to auscultation, Normal air movement, No rhonchi, No wheeze, No rales, Diminished Cardiovascular: Regular rate, Regular Rhythm, Normal S1, Normal S2, No murmurs Abdomen: Soft, Non Tender, Non-Distended, No Hepato-splenomegaly Extremities: No edema, Capillary Refill Less than 3 Seconds Skin: No rashes, No breakdown Neurological: Neuro grossly intact, Sensory exam intact to light touch and pain Psych/Mental Status: Normal Affect, Appropriate Laboratory Results 06/17/18 04:35: Hemoglobin A1c 7.2 H 06/17/18 11:36: POC Glucose 190 H 06/17/18 16:14: POC Glucose 190 H 06/17/18 22:25: POC Glucose 300 H 06/18/18 04:55: WBC 13.8 H, RBC 2.60 L, Hgb 8.1 L, Hct 24.7 L, MCV 95.0, MCH 31.2, MCHC 32.8, RDW 13.9, RDW Differential 46.1 H, Plt Count 237, MPV 9.9, Immature Gran % (Auto) 0.700, Neut % (Auto) 86.0 H, Lymph % (Auto) 8.7 L, [place] % (Auto) 3.6, Eos % (Auto) 0.9, Baso % (Auto) 0.1, Absolute Neuts (auto) 11.9 H, Absolute Lymphs (auto) 1.20, Total Counted Not Reportable 06/18/18 04:55: Sodium 131 L, Potassium 4.8, Chloride 94 L, Carbon Dioxide 26.0, Anion Gap 11, BUN 98 H, Creatinine 3.85 H, Estim Creat Clear Calc 13.28, Est GFR (MDRD) Af Amer 15 L, Est GFR (MDRD) Non-Af 13 L, BUN/Creatinine Ratio 25.5 H, Glucose 205 H, Calcium 8.8 06/18/18 06:57: POC Glucose 184 H Current Medications Acetaminophen (Tylenol) 650 mg PO Q6H PRN PRN PRN Reason: fever over 100.4 or pain Albuterol Sulfate (Ventolin Aerosols) 2.5 mg INHALATION Q2H PRN PRN PRN Reason: SHORTNESS OF BREATH Last Admin: 06/06/18 05:07 Dose: 2.5 mg Albuterol/Ipratropium (Duoneb) 3 ml INHALATION Q4HWA.RT [facility] Last Admin: 06/18/18 07:37 Dose: 3 ml Atorvastatin Calcium (Lipitor) 40 mg PO QHS [facility] Last Admin: 06/17/18 22:29 Dose: 40 mg Chlorhexidine Gluconate () 1 each TOPICAL DAILY [facility] Last Admin: 06/17/18 10:50 Dose: 1 each Citalopram Hydrobromide (Celexa) 40 mg PO DAILY [facility] Last Admin: 06/17/18 17:05 Dose: 40 mg Cyclopentolate HCl (Cyclogyl) 1 drop LEFT EYE QHS [facility] Last Admin: 06/17/18 22:26 Dose: 1 drop Dextrose (D50w Syringe) 0 gm IV X1 PRN; Protocol PRN Reason: Hypoglycemia Dextrose (D50w Syringe) 0 gm IV X1 PRN; Protocol PRN Reason: Hypoglycemia Enoxaparin Sodium (Lovenox) 30 mg SC DAILY@0600 [facility] Last Admin: 06/18/18 04:46 Dose: 30 mg Gabapentin (Neurontin) 300 mg PO BIDCM [facility] Last Admin: 06/17/18 17:05 Dose: 300 mg Glucagon () 1 mg IM .X1 PRN PRN Reason: Hypoglycemia Glucagon () 1 mg IM .X1 PRN PRN Reason: Hypoglycemia Heparin Sodium (Porcine) () 2,500 units IV UD PRN PRN Reason: HEPARIN FLUSH Last Admin: 06/07/18 12:00 Dose: 2,500 units Insulin Glargine (Lantus (Bkc)) 35 units SC [facility] Last Admin: 06/17/18 22:28 Dose: 35 u Insulin Human Lispro (Humalog Kwikpen (Bkc)) 5 unit SC TIDAC [facility] Last Admin: 06/18/18 08:12 Dose: 5 units Insulin Human Lispro (Humalog Kwikpen (Bkc)) 0 unit SC ACHS [facility]; Protocol Last Admin: 06/18/18 08:12 Dose: 3 u Melatonin (Melatonin) 3 mg PO QHS [facility] Last Admin: 06/17/18 22:29 Dose: 3 mg Ondansetron HCl (Zofran) 4 mg IV Q6H PRN PRN PRN Reason: NAUSEA/VOMITING Last Admin: 06/13/18 13:27 Dose: 4 mg Pantoprazole Sodium (Protonix) 40 mg PO DAILY [facility] Last Admin: 06/17/18 17:05 Dose: 40 mg Polyethylene Glycol (Miralax) 17 gm PO BID [facility] Last Admin: 06/17/18 22:29 Dose: Not Given Prednisolone Acetate (Pred Forte Eye Drops (5 Ml)) 2 drop LEFT EYE DAILY [facility] Last Admin: 06/18/18 08:13 Dose: 2 drop Prednisone () 20 mg PO DAILY@0800 [facility] Last Admin: 06/17/18 17:05 Dose: 20 mg Promethazine HCl (Phenergan) 6.25 mg IV Q4H PRN PRN PRN Reason: NAUSEA/VOMITING Last Admin: 06/13/18 10:17 Dose: 6.25 mg Senna/Docusate Sodium (Senokot-S, Jade-Colace) 2 tablet PO DAILY PRN PRN PRN Reason: CONSTIPATION Last Admin: 06/14/18 14:15 Dose: 2 tablet Sodium Chloride () 5 - 15 ml IV UD PRN PRN Reason: SALINE FLUSH Last Admin: 06/18/18 05:02 Dose: 10 ml Sodium Chloride () 10 ml IV UD PRN PRN Reason: Dialysis Catheter Flush Sodium Chloride () 10 - 40 ml IV UD PRN PRN Reason: MULTILUMEN/HICMAN CATH FLUSH Last Admin: 06/16/18 05:48 Dose: 20 ml Medical Necessity - Tobacco Use Smoking Status: Former smoker Tobacco Use: Cigarettes Assessment/Plan All Active Problems Severe sepsis (Acute) Hyperkalemia (Acute) Metabolic acidosis (Acute) Tobacco use disorder (Resolved) Cocaine dependence, episodic (Resolved) 1. Sepsis 2/2 acute on chronic hypoxic respiratory failure secondary to possible bilateral pneumonia/possible ARDS/possible acute COPD exacerbation/PATRICK -Was treated for her pneumonia with Rocephin and azithromycin, and she is completed both courses -Her respiratory status has returned to almost baseline, and she is on 2 L nasal cannula at the moment -Continue with her DuoNeb and prednisone, she is currently being tapered and at 20 mg, will transition to 10 mg today for another 3 days -Appreciate pulmonology input -Unfortunately she only has Medicare part a and there is difficulty getting insurance approval for [facility] a [facility] that we will also perform dialysis, therefore discharge will likely not occur today 2. Acute on chronic diastolic CHF exacerbation with possible transient paroxysmal A. fib/HTN/HLD -Appreciate cardiology recommendation -She did have intermediate cardiac enzymes at one point and cardiology felt that it was more of a demand issue -Also her junctional bradycardia was felt to be secondary to her hyperkalemia which is currently being treated with dialysis -She is on a statin but not on aspirin/beta-tommy because of her worsening anemia and low blood pressures -She did have an echo during the episode with A. fib and return to bradycardia with a junctional rhythm, she was found to have an EF of 65% with a moderately dilated right ventricle moderately enlarged left atrium and a moderately enlarged right atrium with RVSP of 56 and oriented mercury and moderate pulmonary hypertension 3. Acute oliguric renal failure with CKD stage IV 4/anemia of chronic disease -She has been undergoing intermittent dialysis during her stay, and over the weekend because her creatinine and her BUN worsened she had a tunneled hemodialysis catheter placed as she will need short-term outpatient hemodialysis -She has been accepted to [facility] for rehab and they are aware of the hemodialysis catheter and the need for hemodialysis -She has been anemic since about 2014, with a hemoglobin of 11.3. On admission she was 9.8 and is now 8.0 -This is likely secondary to her chronic kidney disease and I will leave it up to nephrology if they feel that she would benefit from Epogen versus his iron. 4. DM 2 4/morbid obesity -We will continue to college admissions counselor lifestyle modifications with weight loss -Part of her blood sugar elevation is going to be secondary to her prednisone -Continue with Lantus 40 units twice daily 8 U TIDAC and sliding scale insulin 6. Anxiety/depression -Stable -continue citalopram 7. GERD -Stable -Continue with PPI DVT: Lovenox Code Visit Inpatient E&M: 59231 Subs Hosp L2
--- NOTE | 2018-06-18 10:19 | PN_ITS ---
Patient Problems: Active and Suspected Problems Severe sepsis (Acute) Hyperkalemia (Acute) Metabolic acidosis (Acute) Subjective: No issues overnight, she feels very well today and should be receiving dialysis shortly Vitals/I&O's: Vital Signs Temp Pulse Resp BP Pulse Ox 98.6 F 76 22 H 83/65 L 98 06/18/18 09:05 06/18/18 09:05 06/18/18 09:05 06/18/18 09:05 06/18/18 09:05 Oxygen Flow Rate (L/min) 3 Oxygen Delivery Method Nasal Cannula Weight: 275 lb 5.718 oz Body Mass Index (BMI) 46.3 Finger Stick Blood Glucose 383 Intake and Output for Last 24 Hours 06/16/18 06/17/18 06/18/18 23:59 23:59 23:59 Intake Total 1080 / 1080 1030 / 1030 Balance 1080 / 1080 1030 / 1030 General: Alert and oriented x3, no apparent distress, Lethargic HEENT: Atraumatic, PERRLA, Normocephalic Oral: Moist Mucosa Neck: Supple, No JVD Lungs: Clear to auscultation, Normal air movement, No rhonchi, No wheeze, No rales, Diminished Cardiovascular: Regular rate, Regular Rhythm, Normal S1, Normal S2, No murmurs Abdomen: Soft, Non Tender, Non-Distended, No Hepato-splenomegaly Extremities: No edema, Capillary Refill Less than 3 Seconds Skin: No rashes, No breakdown Neurological: Neuro grossly intact, Sensory exam intact to light touch and pain Psych/Mental Status: Normal Affect, Appropriate Laboratory Results 06/17/18 04:35: Hemoglobin A1c 7.2 H 06/17/18 11:36: POC Glucose 190 H 06/17/18 16:14: POC Glucose 190 H 06/17/18 22:25: POC Glucose 300 H 06/18/18 04:55: WBC 13.8 H, RBC 2.60 L, Hgb 8.1 L, Hct 24.7 L, MCV 95.0, MCH 31.2, MCHC 32.8, RDW 13.9, RDW Differential 46.1 H, Plt Count 237, MPV 9.9, Imm ature Gran % (Auto) 0.700, Neut % (Auto) 86.0 H, Lymph % (Auto) 8.7 L, [place] % (Auto) 3.6, Eos % (Auto) 0.9, Baso % (Auto) 0.1, Absolute Neuts (auto) 11.9 H, Absolute Lymphs (auto) 1.20, Total Counted Not Reportable 06/18/18 04:55: Sodium 131 L, Potassium 4.8, Chloride 94 L, Carbon Dioxide 26.0, Anion Gap 11, BUN 98 H, Creatinine 3.85 H, Estim Creat Clear Calc 13.28, Est GFR (MDRD) Af Amer 15 L, Est GFR (MDRD) Non-Af 13 L, BUN/Creatinine Ratio 25.5 H, Glucose 205 H, Calcium 8.8 06/18/18 06:57: POC Glucose 184 H Current Medications Acetaminophen (Tylenol) 650 mg PO Q6H PRN PRN PRN Reason: fever over 100.4 or pain Albuterol Sulfate (Ventolin Aerosols) 2.5 mg INHALATION Q2H PRN PRN PRN Reason: SHORTNESS OF BREATH Last Admin: 06/06/18 05:07 Dose: 2.5 mg Albuterol/Ipratropium (Duoneb) 3 ml INHALATION Q4HWA.RT [facility] Last Admin: 06/18/18 07:37 Dose: 3 ml Atorvastatin Calcium (Lipitor) 40 mg PO QHS [facility] Last Admin: 06/17/18 22:29 Dose: 40 mg Chlorhexidine Gluconate () 1 each TOPICAL DAILY [facility] Last Admin: 06/17/18 10:50 Dose: 1 each Citalopram Hydrobromide (Celexa) 40 mg PO DAILY [facility] Last Admin: 06/17/18 17:05 Dose: 40 mg Cyclopentolate HCl (Cyclogyl) 1 drop LEFT EYE QHS [facility] Last Admin: 06/17/18 22:26 Dose: 1 drop Dextrose (D50w Syringe) 0 gm IV X1 PRN; Protocol PRN Reason: Hypoglycemia Dextrose (D50w Syringe) 0 gm IV X1 PRN; Protocol PRN Reason: Hypoglycemia Enoxaparin Sodium (Lovenox) 30 mg SC DAILY@0600 [facility] Last Admin: 06/18/18 04:46 Dose: 30 mg Gabapentin (Neurontin) 300 mg PO BIDCM [facility] Last Admin: 06/17/18 17:05 Dose: 300 mg Glucagon () 1 mg IM .X1 PRN PRN Reason: Hypoglycemia Glucagon () 1 mg IM .X1 PRN PRN Reason: Hypoglycemia Heparin Sodium (Porcine) () 2,500 units IV UD PRN PRN Reason: HEPARIN FLUSH Last Admin: 06/07/18 12:00 Dose: 2,500 units Insulin Glargine (Lantus (Bkc)) 35 units SC 11, [facility] Last Admin: 06/17/18 22:28 Dose: 35 u Insulin Human Lispro (Humalog Kwikpen (Bk)) 5 unit SC TIDAC [facility] Last Admin: 06/18/18 08:12 Dose: 5 units Insulin Human Lispro (Humalog Kwikpen (Bk)) 0 unit SC ACHS [facility]; Protocol Last Admin: 06/18/18 08:12 Dose: 3 u Melatonin (Melatonin) 3 mg PO QHS [facility] Last Admin: 06/17/18 22:29 Dose: 3 mg Ondansetron HCl (Zofran) 4 mg IV Q6H PRN PRN PRN Reason: NAUSEA/VOMITING Last Admin: 06/13/18 13:27 Dose: 4 mg Pantoprazole Sodium (Protonix) 40 mg PO DAILY [facility] Last Admin: 06/17/18 17:05 Dose: 40 mg Polyethylene Glycol (Miralax) 17 gm PO BID [facility] Last Admin: 06/17/18 22:29 Dose: Not Given Prednisolone Acetate (Pred Forte Eye Drops (5 Ml)) 2 drop LEFT EYE DAILY [facility] Last Admin: 06/18/18 08:13 Dose: 2 drop Prednisone () 20 mg PO DAILY@0800 [facility] Last Admin: 06/17/18 17:05 Dose: 20 mg Promethazine HCl (Phenergan) 6.25 mg IV Q4H PRN PRN PRN Reason: NAUSEA/VOMITING Last Admin: 06/13/18 10:17 Dose: 6.25 mg Senna/Docusate Sodium (Senokot-S, Jade-Colace) 2 tablet PO DAILY PRN PRN PRN Reason: CONSTIPATION Last Admin: 06/14/18 14:15 Dose: 2 tablet Sodium Chloride () 5 - 15 ml IV UD PRN PRN Reason: SALINE FLUSH Last Admin: 06/18/18 05:02 Dose: 10 ml Sodium Chloride () 10 ml IV UD PRN PRN Reason: Dialysis Catheter Flush Sodium Chloride () 10 - 40 ml IV UD PRN PRN Reason: MULTILUMEN/HICMAN CATH FLUSH Last Admin: 06/16/18 05:48 Dose: 20 ml Medical Necessity - Tobacco Use Smoking Status: Former smoker Tobacco Use: Cigarettes Assessment/Plan All Active Problems Severe sepsis (Acute) Hyperkalemia (Acute) Metabolic acidosis (Acute) Tobacco use disorder (Resolved) Cocaine dependence, episodic (Resolved) 1. Sepsis 2/2 acute on chronic hypoxic respiratory failure secondary to possible bilateral pneumonia/possible ARDS/possible acute COPD exacerbation/PATRICK -Was treated for her pneumonia with Rocephin and azithromycin, and she is completed both courses -Her respiratory status has returned to almost baseline, and she is on 2 L nasal cannula at the moment -Continue with her DuoNeb and prednisone, she is currently being tapered and at 20 mg, will transition to 10 mg today for another 3 days -Appreciate pulmonology input -Unfortunately she only has Medicare part a and there is difficulty getting insurance approval for transfer to a halfway facility that we will also perform dialysis, therefore discharge will likely not occur today 2. Acute on chronic diastolic CHF exacerbation with possible transient paroxysmal A. fib/HTN/HLD -Appreciate cardiology recommendation -She did have intermediate cardiac enzymes at one point and cardiology felt that it was more of a demand issue -Also her junctional bradycardia was felt to be secondary to her hyperkalemia which is currently being treated with dialysis -She is on a statin but not on aspirin/beta-tommy because of her worsening anemia and low blood pressures -She did have an echo during the episode with A. fib and return to bradycardia with a junctional rhythm, she was found to have an EF of 65% with a moderately dilated right ventricle moderately enlarged left atrium and a moderately enlarged right atrium with RVSP of 56 and oriented mercury and moderate pulmonary hypertension 3. Acute oliguric renal failure with CKD stage IV 4/anemia of chronic disease -She has been undergoing intermittent dialysis during her stay, and over the weekend because her creatinine and her BUN worsened she had a tunneled hemodialysis catheter placed as she will need short-term outpatient hemodialysis -She has been accepted to [facility] for rehab and they are aware of the hemodialysis catheter and the need for hemodialysis -She has been anemic since about 2014, with a hemoglobin of 11.3. On admission she was 9.8 and is now 8.0 -This is likely secondary to her chronic kidney disease and I will leave it up to nephrology if they feel that she would benefit from Epogen versus his iron. 4. DM 2 4/morbid obesity -We will continue to disability counselor lifestyle modifications with weight loss -Part of her blood sugar elevation is going to be secondary to her prednisone -Continue with Lantus 40 units twice daily 8 U TIDAC and sliding scale insulin 6. Anxiety/depression -Stable -continue citalopram 7. GERD -Stable -Continue with PPI DVT: Lovenox Code Visit Inpatient E&M: 08859 Subs Hosp L2
--- NOTE | 2018-06-18 10:41 | CASEMGMT ---
Addendum entered by Christy Mccord 06/18/18 13:00: SW did let patient know this information. SW told her we are trying to figure out what to do. Christy ALEXANDRA STEWARDESSES TEACHER Original Note: Addendum entered by Christy Mccord 06/18/18 12:58: said patient is acute and not chronic. SAVANNAH PAULA is checking with our local [facility] to see if they would be able to take a pending Medicaid. Christy ALEXANDRA STEWARDESSES TEACHER Original Note: SW spoke with patient and told her that right now dialysis will not be covered as an outpatient as she only has Medicare A. SW told her SW will fax the Medicaid application to [employer], but this takes a little while to go into effect. SW thought she would be able to sign up for Part B as she would qualify for extra help. However, SW called [facility] Health Insurance Information Program and patient cannot sign up for Part B as it is not open enrollment. Per [email or web address]] if patient is End Stage Kidney Disease she would qualify right away to get Part B. Also, per [facility] it may be up to the local [facility] and their Film Processor if they accept patient on pending Medicaid. Await Dr Eldridge's input. Christy DE SOUZA
[2018-06-18 12:26] LABS: Bedside Glucose 113 mg/dL (70-110)
--- NOTE | 2018-06-18 12:58 | PCM.PN.BLA ---
Progress Note patient was seen on dialysis today no complaints some urine output see orders/flowsheets issues with insurance and placement
[2018-06-18] MEDS: Heparin 10,000 UNITS/10 ML Vial 3600 UNITS IV (13:10)
--- NOTE | 2018-06-18 13:12 | CASEMGMT ---
Addendum entered by Venecia Morales 06/18/18 16:01: This RN CM received call from Remedios at [facility] and she requests a few more labs for pt at this time but states that they should be able to take pt tomorrow as they do not have a bed available today. Remedios states she will stop by in the morning to have pt sign consents and Dr. Hart updated on all at this time. Gonzalez NUÑEZ CM Original Note: This RN CM spoke with Dr. Eldridge and he states that pt is not end stage renal failure at this time. Per [facility] Callahan, they will not take a pt on pending Medicaid number. Call to Remedios at [facility] to see if she thought pt would qualify for LTACH at this time and she believes pt should and would like referral faxed at this time. Pt updated by Rhoda AGUSTIN at this time and she states that pt is agreeable to LTACH at this time. Dr. Hart updated on all at this time, voices understanding. Gonzalez NUÑEZ CM
--- NOTE | 2018-06-18 13:45 | DIALYSIS ---
Hemodialysis complete. 4 hour run, 2k bath. Net fluid removed = 3000 ml. Patient tolerated HD tx well Right chest CVC: site benign, dressing changed using biofilm dressing. Connections flushed with NS, filled to volume with Heparin, capped and clamped. Report given to primary RNElysia
--- NOTE | 2018-06-18 14:20 | CASEMGMT ---
NIKOLE spoke with patient letting her know we are looking to see if an LTACH is able to accept her. SW explained to her it is billed like a hospital stay and her Medicare A would cover any services including dialysis. NIKOLE told her that the closest one would be in [place]. She said she would do whatever she has to do. NIKOLE told her we will let her know as soon as we know. SW also let her know Medicaid application was sent to [facility]. [employer] emailed SW the documents patient needs to sign and they may be able to verify a lot of information without her having to send them information. NIKOLE left this information with patient and told her SW will check back with her tomorrow. Christy ALEXANDRA MSW
[2018-06-18] MEDS: Gabapentin 300 MG Capsule PO ×2 (14:32→20:40)
[2018-06-18] MEDS: Citalopram 40 MG TABLET PO (14:33)
[2018-06-18] MEDS: predniSONE 10 MG Tablet PO (14:35)
[2018-06-18] MEDS: Pantoprazole Sodium 40 MG Tablet PO (14:35)
[2018-06-18] MEDS: NINTEDANIB ESYLATE 150 MG CAPSULE PO (14:39)
[2018-06-18] MEDS: Insulin Lispro 100 UNIT/ML INSULN.PEN 8 UNIT SC ×2 (14:39→18:17)
--- NOTE | 2018-06-18 16:17 | NURSING ---
agree with pm assessment by joanna melchor.
[2018-06-18 18:31] LABS: Bedside Glucose 159 mg/dL (70-110)
[2018-06-18] MEDS: Cyclopentolate 1% 2 ML Bottle 1 DRP LEFT EYE (20:39)
[2018-06-18] MEDS: MELATONIN 3 MG TABLET PO (20:43)
[2018-06-18] MEDS: Atorvastatin Calcium 40 MG Tablet PO (20:43)
[2018-06-18 21:06] LABS: Bedside Glucose 229 mg/dL (70-110)
[2018-06-19] VITALS (8 sets, daily range): BP systolic 130–140; BP diastolic 62–70; PULSE 58–73; RESP 12–21; TEMP 36.6–36.7; O2SAT 95–100
[2018-06-19] MEDS: Enoxaparin 30 MG/0.3 ML Syringe SC (06:58)
[2018-06-19 07:05] LABS: Bedside Glucose 73 mg/dL (70-110)
[2018-06-19] MEDS: Ipratropium/Albuterol Sulfate 3 ML AMPUL.NEB INHALATION (07:40)
--- NOTE | 2018-06-19 09:22 | PCM.TXEXTCAR ---
- Diet 06/17/18 14:09 ADA [Diet: Calorie Controlled] Is pt able to select menu?: Yes Diet Comments: NPO except sip water w/ medications How many daily calories?: 1800 calorie - Routine Orders/Code Status Routine Lab Work: [facility] Code Status: Full Code - Wound(s) back Wound Type: pimples LT BACK Wound Type: scab RT CHEST Wound Type: Surgical Incision rt neck Wound Type: Puncture - Therapies Physical Therapy: Eval and Treat Occupational Therapy: Eval and Treat - Allergies/Procedures Done in Hospital Allergies/Adverse Reactions: Allergies haloperidol [From Haldol] Allergy (Verified 06/04/18 11:53) Rash haloperidol lactate [From Haldol] Allergy (Verified 06/04/18 11:53) Rash Procedures: Central line placement, Intubation, Transthoracic Echo - Interpretation Summary The estimated ejection fraction is 65 %. Moderately dilated right ventricle. The left atrium is moderately enlarged. The right atrium is moderately enlarged. Trivial mitral valve insufficiency. Right ventricular systolic pressure estimated to be 56 mmHg. Moderate pulmonary hypertension. Normal diastology for age. There is no comparison study available., - - dialysis catheter - Type of Care/Length of Stay Estimated LOS: More Than 30 Days Type of Care Needed: LTAC Rehab Potential: Good Prognosis: Good - Additional Orders/Day of Discharge Day of Discharge: 06/19/18 - Dietary and Speech Recommendations Dietitian Recommendations/Changes: Suggest diet change to 2000 calorie/Renal, 100 gm protein. Will d/c jesús paez on medpass. - Follow Up Care Primary Care Physician: Toby Aleman MD [Primary Care Provider] - Please follow up with your Primary Care Physician in: 3-5 days
--- NOTE | 2018-06-19 09:25 | PCM.DC.SUM ---
Discharge Date and Diagnosis Date of Admission: 06/04/18 Date of Discharge: 06/19/18 - Primary Discharge Diagnosis Active and Suspected Problems Severe sepsis (Acute) Hyperkalemia (Acute) Metabolic acidosis (Acute) - Secondary Discharge Diagnosis Chronic Problems Obstructive sleep apnea (Chronic) Respiratory failure with hypoxia (Chronic) Pulmonary fibrosis (Chronic) Acute kidney injury superimposed on chronic kidney disease (Chronic) Obesity (Chronic) Hypertension (Chronic) Depression (Chronic) Controlled diabetes mellitus type II without complication (Chronic) Hospital Course and Treatment Imaging Results: CXR: IMPRESSION: Pulmonary edema or bilateral pneumonia. CT Chest: IMPRESSION: Chronic interstitial lung disease with superimposed bilateral patchy pneumonia. CTA Chest: IMPRESSION: No demonstrated pulmonary embolism or arterial dissection. Worsening bilateral pneumonia or ARDS. Consults: Critical Care Pulmonology Cardiology Nephrology General Surgery Procedures: 2-D Echocardiogram, Central line placement, Dialysis, Intubation Summary of Care Provided: Per HPI: The patient is a 63 year old F who presents emergency room due to worsening shortness of breath. Patient states she had a respiratory virus in the middle of April which initially caused her shortness of breath. However, the last 2 weeks she reports her shortness of breath is worse and she is struggling to do activities of daily living due to shortness of breath. She denies fever, chills. Intermittent productive cough. Denies chest pain. Denies noticeable swelling. She does report her weight on admission is 10 pounds greater than at her primary care physician 1 week ago. She has a past medical history of pulmonary fibrosis, obstructive sleep apnea and chronic hypoxic respiratory failure wearing supplemental oxygen at night only. She follows with Dr. Olivia, [facility] pulmonary medicine. Her other past medical history includes hypertension, hyperlipidemia, depression, GERD, type 2 diabetes mellitus, morbid obesity. She is a former smoker and reports she quit 8 years ago. Hospital Course: 1. Sepsis secondary to acute on chronic hypoxic respiratory failure secondary to bilateral pneumonia/ARDS/acute COPD exacerbation/XTG-11-dwcj-old female who presented with shortness of breath, was found to have bilateral infiltrates on chest x-ray and CT chest. She was treated with Rocephin and azithromycin which she completed however she did necessitate intubation because of her hypoxia. She was intubated for several days and when she was finally able to be extubated she was continued on nebulizers as well as prednisone. She is currently on a prednisone taper and will need 10 mg for another 3 or 4 days at the [facility]. 2. Acute on chronic diastolic CHF exacerbation/transient paroxysmal A. fib/HTN/HLD-during her acute stay in the ICU she was found to have an episode of A. fib. And then become bradycardic with a junctional rhythm. She did have an echo earlier in her admission that demonstrated an EF of 65% with a moderately dilated right ventricle with an enlarged left atrium as well as a moderately enlarged right atrium with an RVSP of 56 mmHg, cardiology was consulted for this. They felt that this was likely secondary to her acute illness, and that it was also secondary possibly to episodes of hyperkalemia given her kidney disease. They recommended that she be continued with dialysis and to maintain her potassium less than 4.5. She did have a slight troponin elevation though given her intubation and her sepsis it was felt that this was likely a demand issue and not an OR. 3. Acute oliguric renal failure with CKD stage IV/anemia of chronic disease-on admission her creatinine was 2.11 and she has continued to worsen during her stay. She had elevations in her BUN and was not producing a significant amount of urine therefore she had temporary dialysis catheters placed and was dialyzed however she had very slow recovery and it was felt that she would do better on a slightly longer term hemodialysis. Therefore general surgery was consulted to place a hemodialysis catheter to receive HD 3 times a week. Of note she does state that today on discharge she has had a large amount of urine production, and hopefully this is indicating recovery in her renal function. Also she has been chronically anemic with a hemoglobin of 11.3 in 2014. On admission she was 9.8 and is now 8.0, this is likely secondary to her renal failure and hopefully should recover with recovery and her renal function. Of note on 06/10/2018 she did have a positive fecal occult blood, unfortunately she was too ill to undergo any type of procedure during her stay but with this will likely need to be followed up as an outpatient. 4. DM 2/morbid obesity-her blood sugars were on the high side during her stay, mostly greater than 200. Ultimately her insulin was changed to Lantus 40 units twice daily and 8 units 3 times a day with meals as well as a sliding scale. I feel that part of this is likely artifact from the steroids as well as the infection and therefore I do anticipate that her insulin usage will go down. On the morning of discharge her POC glucose was 73. 5. Her other medical diagnoses were evaluated and her home medications were continued where appropriate Objective: General: Alert and oriented x3, no apparent distress, Lethargic HEENT: Atraumatic, PERRLA, Normocephalic Oral: Moist Mucosa Neck: Supple, No JVD Lungs: Clear to auscultation, Normal air movement, No rhonchi, No wheeze, No rales, Diminished Cardiovascular: Regular rate, Regular Rhythm, Normal S1, Normal S2, No murmurs Abdomen: Soft, Non Tender, Non-Distended, No Hepato-splenomegaly Extremities: No edema, Capillary Refill Less than 3 Seconds Skin: No rashes, No breakdown Neurological: Neuro grossly intact, Sensory exam intact to light touch and pain Psych/Mental Status: Normal Affect, Appropriate - Physical Exam Vital Signs Temp Pulse Resp BP Pulse Ox 97.9 F 68 16 140/70 H 98 06/19/18 02:30 06/19/18 06:59 06/19/18 05:34 06/19/18 02:30 06/19/18 05:34 Oxygen Flow Rate (L/min) 100 Oxygen Delivery Method Bi-pap Weight: 272 lb 4.334 oz Body Mass Index (BMI) 46.3 Finger Stick Blood Glucose 383 Intake and Output for Last 24 Hours 06/17/18 06/18/18 06/19/18 23:59 23:59 23:59 Intake Total 1030 / 1030 1020 / 1020 0 / 0 Output Total 9000 / 9000 0 / 0 Balance 1030 / 1030 -7980 / -7980 0 / 0 POC Glucose 06/19/18 06/18/18 06/18/18 06:59 20:38 18:01 POC Glucose 73 229 H 159 H 06/18/18 12:11 POC Glucose 113 H Home Medications: Medications to take at Discharge Citalopram [Celexa] 40 mg PO DAILY 02/05/15 Atorvastatin Calcium [Lipitor] 40 mg PO QHS 06/04/18 Cyclopentolate HCl 1 drop LEFT EYE QHS 06/04/18 Gabapentin [Neurontin] 300 mg PO BID 06/04/18 Montelukast [Singulair] 10 mg PO QHS 06/04/18 Nintedanib Esylate [Ofev] 150 mg PO BIDCM 06/04/18 Pantoprazole Sodium [Protonix] 20 mg PO DAILY 06/04/18 Prednisolone Acetate 2 drop LEFT EYE DAILY 06/04/18 Tetrahydrz/Dext 70/Peg 400/Pvp [Visine Advanced Eye Drop] 1 drop RIGHT EYE BID 06/04/18 Chlorhexidine Gluc 2% Cloth [(None)] 1 each TOPICAL DAILY towelette 06/18/18 Insulin Glargine [Lantus SoloStar Pen] 40 units SC , pen 06/18/18 Insulin Lispro [Humalog KwikPen] 8 unit SC TIDAC insuln.pen 06/18/18 Insulin Lispro [Humalog KwikPen] See Protocol SC ACHS insuln.pen 06/18/18 Ipratropium/Albuterol Sulfate [Duoneb] 3 ml INHALATION Q4HWA.RT ampul.neb 06/18/18 Melatonin 3 mg PO QHS tablet 06/18/18 Polyethylene Glycol 3350 [Miralax] 17 gm PO BID packet 06/18/18 predniSONE tablet 10 mg PO DAILY@0800 4 Days tablet 06/18/18 Primary Care Physician: Toby Aleman MD [Primary Care Provider] - Please follow up with your Primary Care Physician in: 3-5 days Disposition: Nursing Home Acute Care Minutes spent on discharge:: 50 Patient Condition:: Stable Medical Necessity - Tobacco Use Smoking Status: Former smoker Tobacco Use: Cigarettes Meaningful Use Info Meaningful Use Diagnoses (Choose all that apply): None applicable Code Visit Inpatient E&M: 09278 Disch Hosp
--- NOTE | 2018-06-19 09:33 | CASEMGMT ---
Call from Remedios at [facility] and she states that they can take pt today and she is on the way to [facility] to have pt sign consent. She states that transport can be set up for pt 2 hours after orders faxed and orders were faxed at this time. Pete, department secretary, aware to set up transport for 1130 or after, voices understanding. Pt updated on all at this time, voices understanding. Gonzalez NUÑEZ CM
[2018-06-19] MEDS: Pantoprazole Sodium 40 MG Tablet PO (09:50)
[2018-06-19] MEDS: NINTEDANIB ESYLATE 150 MG CAPSULE PO (09:50)
[2018-06-19] MEDS: Citalopram 40 MG TABLET PO (09:50)
[2018-06-19] MEDS: Gabapentin 300 MG Capsule PO (09:50)
[2018-06-19] MEDS: predniSONE 10 MG Tablet PO (09:50)
[2018-06-19] MEDS: Glycerin/Hypromellose/PEG400 15 ml Bottle 1 DRP RIGHT EYE (09:51)
[2018-06-19] MEDS: prednisoLONE eye drops (5 mL) 1 DROP OPTH.BTL 2 DRP LEFT EYE (09:51)
== END 2018-06-19 11:40 | DRG 870 ==
LOC: ED 14:47 → PCU 15:07 → ICU 06-07 07:43 → PCU 06-13 15:40
PROVIDERS: Anesthesiology; Family Medicine; Internal Medicine; Internal Medicine Critical Care Medicine; Internal Medicine Nephrology; Nurse Practitioner Family; Surgery; Admitting Provider Family Medicine; Emergency Provider Emergency Medicine; Family Provider Internal Medicine; PCP Internal Medicine; Visit Provider Family Medicine
PROC: 0JH63XZ Insertion of Tunneled Vascular Access Device into Chest Subcutaneous Tissue and Fascia, Percutaneous Approach (ICD-10-PCS; principal; 2018-06-17 13:15)
DX: A41.9 Sepsis, unspecified organism (principal); J96.21 Acute and chronic respiratory failure with hypoxia; J18.9 Pneumonia, unspecified organism; N17.0 Acute kidney failure with tubular necrosis; I50.33 Acute on chronic diastolic (congestive) heart failure; Z68.42 Body mass index [BMI] 45.0-49.9, adult; J44.1 Chronic obstructive pulmonary disease with (acute) exacerbation; I13.0 Hypertensive heart and chronic kidney disease with heart failure and stage 1 through stage 4 chronic kidney disease, or unspecified chronic kidney disease; N18.4 Chronic kidney disease, stage 4 (severe); G47.33 Obstructive sleep apnea (adult) (pediatric); E78.5 Hyperlipidemia, unspecified; K21.9 Gastro-esophageal reflux disease without esophagitis; Z99.81 Dependence on supplemental oxygen; E66.01 Morbid (severe) obesity due to excess calories; E87.5 Hyperkalemia; R65.20 Severe sepsis without septic shock; Z87.891 Personal history of nicotine dependence; Z79.4 Long term (current) use of insulin; J84.10 Pulmonary fibrosis, unspecified; F32.9 Major depressive disorder, single episode, unspecified; E11.22 Type 2 diabetes mellitus with diabetic chronic kidney disease; D63.8 Anemia in other chronic diseases classified elsewhere
CPT/HCPCS: 31500; 31720; 36415; 36600; 71045; 71046; 71250; 71275; 74018; 76000; 80048; 82274; 82550; 82607; 82728; 82746; 82803; 82962; 83036; 83540; 83550; 83605; 83735; 83880; 84100; 84478; 84484; 85014; 85018; 85025; 85027; 85379; 85610; 85730; 86704; 86706; 87040; 87070; 87077; 87186; 87205; 87340; 87449; 87633; 90937; 93005; 93306; 94002; 94003; 94640; 94660; 95831; 97110; 97163; 97166; 97530; 97535; 97802; 99251; 99284; J7030; P9047; Q9967; A4216; C1750; C1752; G0257; G0463; J0696; J1940; J2405; J3490

== ENCOUNTER 2019-03-16 15:43 | Emergency (ER) | payer MEDICARE, MEDICAID, SELFPAY ==
[2019-03-16 15:43] VITALS: BMI 51.5
[2019-03-16 15:44] VITALS: BP 113/80; PULSE 98; RESP 16; TEMP 36.1; O2SAT 99; BMI 46.5
[2019-03-16 16:31] LABS: Absolute Lymphocyte Count 0.69 X10^3/uL (0.83-4.51); Absolute Neutrophil Count 8.9 X10^3/uL (2.0-7.7); Basophil# 0.02 X10^3/uL; Basophil% 0.2 % (0-1); Eosinophil# 0.03 X10^3/uL; Eosinophils% 0.3 % (0-5); Hematocrit 25.6 % (37-47); Hemoglobin 7.8 g/dL (12.0-15.0); Lymphocyte # 0.69 X10^3/ul (4.0); Lymphocyte % 6.6 % (19-41); Mean Corp Hgb Conc 30.5 g/dL (32-36); Mean Corpuscular Hgb 29.7 pg (27.0-32.0); Mean Corpuscular Volume 97.3 fL (81-99); Mean Platelet Vol. 8.9 fl (6.2-12.0); Monocyte# 0.63 X10^3/uL; Monocyte% 6.1 % (0-10); NRBC Flagged by Analyzer 0 % (0-5); Neutrophil # 8.93 X10^3/uL (2.7-7.7); Neutrophil % 85.8 % (47-70); Platelet Count 370 K/mm3 (150-450); RBC Distribution Width CV 16.7 % (11.6-14.6); RBC Distribution Width SD 59.8 fl (35.1-43.9); Red Blood Count 2.63 M/mm3 (4.2-5.4); White Blood Count 10.4 K/mm3 (4.4-11.0)
[2019-03-16 16:41] LABS: Anion Gap 8 (5-15); BUN 51 mg/dL (7-18); BUN/Creat Ratio 18.5 RATIO (10-20); Calcium,Total 8.7 mg/dL (8.5-10.1); Chloride 101 mmol/L (98-107); Creatinine, Serum 2.76 mg/dL (0.55-1.02); EST Glomerular Filtration Rate 18 mL/min (>60); Est Glom Filt Rate - Afr Amer 22 mL/min (>60); Estimated Creatinine Clearance 18.53 ml/min; Glucose 164 mg/dL (74-106); Potassium 5.3 mmol/L (3.5-5.1); Sodium Level 130 mmol/L (136-145)
--- NOTE | 2019-03-16 17:49 | CT_ITS ---
HISTORY: ABD PAIN ALL OVER X 1 WEEK, HX KIDNEY DZ, GB TECHNIQUE: Helically acquired images were obtained of the abdomen and pelvis with oral, but without IV contrast. A radiation dose optimization technique was used for this scan. COMPARISON: CT scan of the chest from June 06, 2018 goes to below the adrenal glands. FINDINGS: # of images incl. paperwork: [id number] LUNG BASES: Diffuse bilateral airspace disease within the lung bases is much less severe than previously. Mild bronchiectasis. Tiny pleural effusions. Severe coronary artery calcific ASCVD. Minimal cardiomegaly. Gaseous distention of the distal esophagus likely related to reflux disease CT abdomen: Bones are unremarkable. The gallbladder has been resected. Liver, spleen, pancreas, and adrenal glands are normal. Kidneys are atrophic, with exophytic masses likely representing cysts. The aorta is diseased with calcific plaque but without aneurysm. There is no intra-or extrahepatic biliary ductal dilatation. CT pelvis: Large abdominal pelvic ascites is present. The uterus contains calcifications. Tubal ligation clips are present.. The appendix is not identified. The bladder is mostly decompressed. Bowel gas pattern is normal. CT/Abdomen/Pel W ORAL Cont Only IMPRESSION: Protuberant abdomen due to a severe amount of subcutaneous and intraperitoneal fat. Some of the distention is due to ascites. Renal atrophy. Individualized dose optimization techniques were used for this CT. at 2020 Reported and signed by: Milad Leger MD Electronically Signed: Milad Leger MD at 20:19 EST Tel , Service support ,
--- NOTE | 2019-03-16 17:51 | ED.VISSUMM ---
- ER Visit Summary Date of Service: 03/16/19 Chief Complaint: Abdominal pain History of Present Illness: The patient is a 63 F who presents with abdominal pain that has been getting worse over the past 8 days. Patient describes her pain as aching and stabbing. Patient states her pain is diffuse across her abdomen. Patient states her pain is worse with movement and with eating. Patient admits to nausea but denies any vomiting. Patient admits to some hematochezia but states she has a history of internal and external hemorrhoids. Patient denies any dysuria or hematuria but admits to some decreased urine output. Patient also admits to an 18 pound weight gain in the last 3 weeks. Patient admits to a fever of 99.4 at home. Patient states she has been also been having a cough with some clear sputum. Physical Examination: Vital signs are stable. Patient is afebrile. Patient is in no acute distress. Oral mucosa is pink and moist. Neck is supple. Trachea is midline. There is no JVD. Heart was regular rate and rhythm. Lungs are clear and equal bilaterally. Abdomen is soft. Bowel sounds are normal. There is diffuse tenderness. There is some mild distention noted. There is no rebound or guarding noted. Cranial nerves II through XII are intact. There are no focal motor or sensory deficits noted. Test Results: CBC shows a mild anemia with a hemoglobin of 7.8 and hematocrit 25.6. These are stable compared to previous results. Basic metabolic profile showed mild hyperkalemia 5.3. BUN was 51 and creatinine was 2.76. These were also stable compared to previous results. Liver function tests were normal. Urinalysis does not show any evidence of urinary tract infection. CT scan of the abdomen and pelvis was obtained. There is some mild ascites. There is renal atrophy. There is large amount of intraperitoneal fat. This was interpreted by the radiologist. Emergency Department Course and Treatment: Patient was given morphine and Zofran here. Patient felt better on reevaluation. Patient was instructed to follow-up with her primary care physician in 5 to 7 days for further evaluation. Patient and her understood and were agreeable with the plan. All questions were answered. Disposition: Discharge home Impression: Abdominal pain This note was generated with [employer] dictation software. It may contain incorrect words, spelling, and punctuation that were not noted in review of the chart prior to signing ED Disposition - Plan for ED Patient: Disposition: Home or Assisted Living Diagnosis: Abdominal pain Instructions: ABDOMINAL PAIN, Unknown Cause, (Female) Referrals: Toby Aleman MD [Primary Care Provider] - 3-5 Days
[2019-03-16 18:11] LABS: Bacteria 0 SEEN /hpf (None Seen); Mucous, Urine 0 SEEN /hpf (<or=2+); Red Blood Cells-Urine 0 SEEN /hpf (0-5); White Blood Cells 0 SEEN /hpf (0-5)
[2019-03-16] MEDS: Ondansetron 4 MG/2 ML Vial IV (18:13)
[2019-03-16] MEDS: Morphine 4 MG/ML Syringe IV (18:13)
[2019-03-16 18:16] LABS: Color, Urine Yellow (Yellow); Glucose, Dipstick Normal (Normal); Ketone-Dipstick Negative (Negative); Leukocyte Esterase-Dipstick Negative /ul (Negative); Nitrite-Dipstick Negative (Negative); Occult Blood-Urine Negative /ul (Negative); Protein-Dipstick Negative (Negative); Specific Gravity, Urine 1.015 (1.002-1.030); Urine Bilirubin Dipstick Negative (Negative); Urine Clarity Sl. Cloudy (Clear); Urine Urobilinogen Normal (Normal)
[2019-03-16 18:18] VITALS: BP 122/60; PULSE 81; RESP 18; O2SAT 99
[2019-03-16 18:22] LABS: Squamous Epithelial Cells - UA 0-5 SEEN /hpf (5-10)
[2019-03-16 18:28] LABS: International Normalized Ratio 1.2; Prothrombin Time (Protime)PT. 14.7 SECONDS (11.7-14.9)
[2019-03-16 18:29] LABS: Partial Thromboplast Time 35.7 Seconds (24.1-36.2)
[2019-03-16 18:38] LABS: AST(SGOT) 16 U/L (15-37); Alanine Aminotransfer ALT/SGPT 17 U/L (13-56); Albumin, Serum 2.3 g/dL (3.2-5.0); Alkaline Phosphatase 50 U/L (45-117); Bilirubin, Direct 0.13 mg/dL (0.00-0.30); Globulin 4.2 g/dL (2.2-4.2); Protein, Total 6.5 g/dL (6.4-8.2)
[2019-03-16 21:06] LABS: Bedside Glucose 95 mg/dL (70-110)
[2019-03-16 21:33] VITALS: BP 110/78; RESP 18
== END 2019-03-16 21:34 | disposition home or self-care (01) ==
PROVIDERS: Emergency Provider Emergency Medicine; Family Provider Internal Medicine; PCP Internal Medicine
DX: R10.84 Generalized abdominal pain (principal); R18.8 Other ascites; K64.4 Residual hemorrhoidal skin tags; K64.8 Other hemorrhoids; E87.5 Hyperkalemia; E66.9 Obesity, unspecified; E78.00 Pure hypercholesterolemia, unspecified; E11.22 Type 2 diabetes mellitus with diabetic chronic kidney disease; I12.0 Hypertensive chronic kidney disease with stage 5 chronic kidney disease or end stage renal disease; N18.6 End stage renal disease; J84.10 Pulmonary fibrosis, unspecified; Z87.01 Personal history of pneumonia (recurrent); Z79.4 Long term (current) use of insulin; Z79.899 Other long term (current) drug therapy
CPT/HCPCS: 74176; 80048; 80076; 81001; 82962; 85025; 85610; 85730; 96374; 96375; 99283; A4216; J2405

== ENCOUNTER 2019-03-21 21:37 | Emergency (ER) | payer MEDICARE, MEDICAID, SELFPAY ==
[2019-03-21 21:37] VITALS: BP 113/40; PULSE 69; RESP 16; TEMP 36.6; O2SAT 98; BMI 45.7
[2019-03-21 22:39] LABS: Absolute Lymphocyte Count 0.96 X10^3/uL (0.83-4.51); Absolute Neutrophil Count 9.3 X10^3/uL (2.0-7.7); Basophil# 0.04 X10^3/uL; Basophil% 0.4 % (0-1); Eosinophil# 0.06 X10^3/uL; Eosinophils% 0.5 % (0-5); Hematocrit 25.7 % (37-47); Hemoglobin 7.9 g/dL (12.0-15.0); Lymphocyte # 0.96 X10^3/ul (4.0); Lymphocyte % 8.4 % (19-41); Mean Corp Hgb Conc 30.7 g/dL (32-36); Mean Corpuscular Hgb 29.4 pg (27.0-32.0); Mean Corpuscular Volume 95.5 fL (81-99); Mean Platelet Vol. 8.8 fl (6.2-12.0); Monocyte# 0.75 X10^3/uL; Monocyte% 6.6 % (0-10); NRBC Flagged by Analyzer 0.2 % (0-5); Neutrophil % 81.6 % (47-70); Platelet Count 515 K/mm3 (150-450); RBC Distribution Width CV 16.6 % (11.6-14.6); RBC Distribution Width SD 58.4 fl (35.1-43.9); Red Blood Count 2.69 M/mm3 (4.2-5.4); White Blood Count 11.4 K/mm3 (4.4-11.0)
[2019-03-21 22:51] VITALS: BP 98/85; PULSE 88; RESP 18; O2SAT 96
[2019-03-21 22:52] LABS: Anion Gap 11 (5-15); BUN 66 mg/dL (7-18); BUN/Creat Ratio 23.6 RATIO (10-20); Calcium,Total 9.1 mg/dL (8.5-10.1); Chloride 99 mmol/L (98-107); EST Glomerular Filtration Rate 18 mL/min (>60); Est Glom Filt Rate - Afr Amer 22 mL/min (>60); Estimated Creatinine Clearance 18.26 ml/min; Glucose 72 mg/dL (74-106); Potassium 5.3 mmol/L (3.5-5.1); Sodium Level 128 mmol/L (136-145)
[2019-03-21] MEDS: Ondansetron 4 MG/2 ML Vial IV (23:56)
[2019-03-21] MEDS: Morphine 4 MG/ML Syringe IV (23:58)
[2019-03-22] VITALS: BP 108/88; PULSE 84; RESP 20; O2SAT 97
[2019-03-22 00:37] LABS: Mucous, Urine 0 SEEN /hpf (<or=2+); Red Blood Cells-Urine 0 SEEN /hpf (0-5); Squamous Epithelial Cells - UA 0 SEEN /hpf (5-10); White Blood Cells 0 SEEN /hpf (0-5)
[2019-03-22 00:57] LABS: Color, Urine Yellow (Yellow); Glucose, Dipstick Normal (Normal); Ketone-Dipstick Negative (Negative); Leukocyte Esterase-Dipstick Negative /ul (Negative); Nitrite-Dipstick Negative (Negative); Occult Blood-Urine Negative /ul (Negative); Protein-Dipstick Negative (Negative); Specific Gravity, Urine 1.015 (1.002-1.030); Urine Bilirubin Dipstick Negative (Negative); Urine Clarity Clear (Clear); Urine Urobilinogen Normal (Normal)
[2019-03-22 01:04] LABS: Bacteria RARE /hpf (None Seen); Hyaline Cast 0-5 SEEN /lpf (0-5)
[2019-03-22 01:24] VITALS: BP 126/80; PULSE 80; RESP 17; O2SAT 96
--- NOTE | 2019-03-22 01:35 | ED.VIS.GEN ---
History of Present Illness Chief Complaint: Abn Labs Narrative: Patient presenting for evaluation secondary to abnormal kidney function tests. Patient has an underlying history of end-stage renal disease, not yet on dialysis. Patient reports to me that she had a screening lab draw by her primary care physician done today, and she was called and told to go immediately to the emergency department because your sodium is low. Patient tells me that she has issues with chronic abdominal pain. This is secondary to her significant abdominal distention secondary to fluid retention. She reports that she has had significant weight gain recently, as well as swelling in her legs. The edema is causing her some shortness of breath. She denies any fevers. She denies any nausea vomiting or diarrhea. Patient was actually in the emergency department and was evaluated for this about 5 days ago including lab work and a CT and was discharged. Patient reports that she is supposed to see a frame polisher coming up in the next 4 days. Past Medical History - Allergies and Home Meds Allergies/Adverse Reactions: Allergies haloperidol [From Haldol] Allergy (Verified 03/21/19 21:49) Rash haloperidol lactate [From Haldol] Allergy (Verified 03/21/19 21:49) Rash Primary Care Physician: Toby Aleman MD [Primary Care Provider] - Past Medical History: - - Pulmonary fibrosis, chronic kidney disease, diabetes Surgical History: cholecystectomy, tonsillectomy Smoking Status: Never smoker - Family History Maternal Family History: Reports: Diabetes, Heart Disease Paternal Family History: Reports: - - from prostate cancer Review of Systems All systems negative except as indicated General: Denies: Chills, Fever, Sweats Eyes: Denies: Visual changes - bilaterally, Diplopia ENT: Denies: Rhinorrhea, Sore throat Cardiovascular: Denies: Chest pain, Palpitations Respiratory: Reports: Dyspnea, Dyspnea on exertion Gastrointestinal: Reports: Abdominal pain Genitourinary: Reports: - - Difficulty urinating Musculoskeletal: Reports: Swelling Skin: Denies: Rash, Wounds Neurological: Denies: Headache, Weakness, Numbness Physical Exam Vital Signs/Narrative: Vital Signs Temp Pulse Resp BP Pulse Ox 03/22/19 01:24 80 17 126/80 H 96 03/22/19 00:00 84 20 H 108/88 H 97 03/21/19 22:51 88 18 98/85 H 96 03/21/19 21:37 97.9 F 69 16 113/40 L 98 Inital Vital Signs reviewed: Yes General: Obese Head: Normocephalic, Atraumatic Eyes: Perrl, EOMI ENT: Moist mucous membranes, No rhinorrhea Neck: Supple, Nontender Cardiovascular: Regular rate, Regular rhythm, No murmurs Respiratory: No distress, CTA bilaterally, Chest nontender Abdomen: - - Profoundly distended abdomen that is nontender to palpation. No evidence of rigidity. Extremities: Edema - 2+ bilateral lower extremity Skin: Normal color, No rash Neurological: Alert, Oriented x3, Cranial nerves II-XII grossly intact, Normal Strength, Normal Sensation Psychological: Normal affect, Normal Mood Diagnostic/Tx/Re-eval - Medical Decision Making Patient presented secondary to possible abnormal lab results. IV was established laboratory studies were obtained. Patient was found to have chronic anemia unchanged from prior. Patient sodium was 128. Creatinine was 2.8 with mild elevation of the patient's BUN. This really is not that far off of the patient's baseline when compared to the patient's prior lab results, and I do not feel that a sodium of 128 when her previous sodium was 130 requires admission given the patient's chronic renal disease. Patient was complaining that she was not making urine, so she was straight cathed and we got 200 of urine and it was found to be noninfected. Patient's pain was treated in the emergency department. At this point she has follow-up with nephrology coming in 4 days, she has supplemental oxygen at home, she has basically baseline lab tests that do not seem to necessitate the need for admission. I believe that she is safe and appropriate for discharge. Patient will follow-up with Dr. Gutierrez in nephrology. ED Disposition - Plan for ED Patient: Disposition: Home or Assisted Living Diagnosis: Chronic kidney disease Instructions: Chronic Kidney Disease Referrals: Jo Gutierrez DO [STAFF PHYSICIAN] - As soon as possible
[2019-03-22] MEDS: oxyCODONE 5 MG Tablet 10 MG PO (01:58)
[2019-03-22 02:00] VITALS: BP 122/70; PULSE 82; RESP 22; O2SAT 96
== END 2019-03-22 02:05 | disposition home or self-care (01) ==
PROVIDERS: Emergency Medicine; Emergency Provider Emergency Medicine; Family Provider Internal Medicine; PCP Internal Medicine
DX: E11.22 Type 2 diabetes mellitus with diabetic chronic kidney disease (principal); N18.6 End stage renal disease; D63.1 Anemia in chronic kidney disease; J84.10 Pulmonary fibrosis, unspecified; R10.9 Unspecified abdominal pain; G89.29 Other chronic pain; Z79.4 Long term (current) use of insulin; Z79.899 Other long term (current) drug therapy
CPT/HCPCS: 80048; 81001; 85025; 96374; 96375; 99285; A4216; J2405

== ENCOUNTER → 2019-03-26 11:28 | Outpatient (CLI) | payer MEDICARE, MEDICAID, SELFPAY ==
[2019-03-21 21:37] VITALS: BMI 45.7
[2019-03-26 11:59] LABS: Albumin, Serum 2.2 g/dL (3.2-5.0); BUN 83 mg/dL (7-18); BUN/Creat Ratio 26.5 RATIO (10-20); Calcium,Total 8.8 mg/dL (8.5-10.1); Chloride 95 mmol/L (98-107); Creatinine, Serum 3.13 mg/dL (0.55-1.02); EST Glomerular Filtration Rate 16 mL/min (>60); Est Glom Filt Rate - Afr Amer 19 mL/min (>60); Glucose 113 mg/dL (74-106); Phosphorus 5.4 mg/dL (2.5-4.9); Potassium 5.5 mmol/L (3.5-5.1); Sodium Level 124 mmol/L (136-145)
[2019-03-26 12:15] LABS: PTHIN 214.6 pg/mL (18.4-80.1)
== END ==
PROVIDERS: Family Provider Internal Medicine; PCP Internal Medicine; Visit Provider Internal Medicine Nephrology
DX: N17.0 Acute kidney failure with tubular necrosis (principal); E21.1 Secondary hyperparathyroidism, not elsewhere classified
CPT/HCPCS: 36415; 80069; 83970

== ENCOUNTER 2019-03-26 14:20 | Inpatient (IN) | payer MEDICARE, MEDICAID, SELFPAY ==
[2019-03-26] VITALS (12 sets, daily range): BP systolic 124–136; BP diastolic 62–69; PULSE 51–60; RESP 18–22; TEMP 36.5–37; O2SAT 97–100; BMI 48.2; BMI 53.8
--- NOTE | 2019-03-26 14:56 | EKG12_ITS ---
Test Reason : EDEMA Blood Pressure : / mmHG Vent. Rate : 054 BPM Atrial Rate : 054 BPM P-R Int : 186 ms QRS Dur : 116 ms QT Int : 448 ms P-R-T Axes : 020 -23 044 degrees QTc Int : 424 ms Sinus bradycardia with Premature atrial complexes in a pattern of bigeminy Incomplete right bundle branch block Borderline ECG Confirmed by LOU FALK, KEN ([id number]), medical transcription editor ROBY ORTIZ ([id number]) on 03/27/2019 10:36:16 AM Referred By: Mike Meza Confirmed By:CASSIDY BLAKE MD
--- NOTE | 2019-03-26 14:58 | ED.VISSUMM ---
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 Patient apparently was seen in the office this morning. Patient has been gaining weight in excess of 30 pounds in the last month. Patient had decreased urine output. Patient had blood work performed this morning that was concerning and patient was advised to come to the emergency department. Patient describes abdominal distention. Patient does have history of chronic kidney disease and states that last spring she was on dialysis for about a month. Patient at that time was in a coma related to sepsis related to pneumonia. Patient with history of diabetes, hypertension, pulmonary fibrosis, depression, and chronic kidney disease.] Physical Examination: [HEENT-PERRLA, EOMI. Cranial nerves II through XII grossly intact. TMs clear. Mucous membranes moist. No adenopathy. Cardiovascular-regular rate and rhythm without murmur or ectopy Lungs-clear to auscultation, chest wall stable without crepitus or subcu emphysema Abdomen-patient's abdomen is distended and minimally tender. Patient does have a fluid wave noted. Extremities-intact ?4, normal range of motion, normal pulses, atraumatic] Test Results: BMP performed this morning showed a sodium of 124, potassium 5.5, chloride 95, CO2 20, glucose 113, BUN 83, and creatinine was 3.13.] Emergency Department Course and Treatment: [Patient had an IV line established.] Case was discussed with hospitalist will evaluate patient for admission Treatment Plan: [Admit for evaluation for dialysis.] Disposition: [Admit] Impression: [Renal failure Hyperkalemia Hyponatremia Ascites] This note was generated with [employer] dictation software. It may contain incorrect words, spelling, and punctuation that were not noted in review of the chart prior to signing ED Disposition - Plan for ED Patient: Referrals: Toby Aleman MD [Primary Care Provider] -
--- NOTE | 2019-03-26 15:00 | RAD_ITS ---
STUDY: X-RAY CHEST REASON FOR EXAM: Female, 63 years old. DYSPNEA, EDEMA; -- RENAL FAILURE TECHNIQUE: Single AP portable view of the chest. COMPARISON: None. FINDINGS: There is evidence of vascular congestion and mild degree of CHF. There is no demonstrated pleural abnormality. There is moderate cardiac enlargement. Normal mediastinum and carolyn. Normal visualized pulmonary arteries. Normal visualized aortic arch and descending thoracic aorta. Normal visualized thoracic spine. Normal visualized ribs, clavicles, and shoulders. Hiatal hernia. RAD/Chest 1 View (Portable) IMPRESSION: Mild degree of vascular congestion and CHF. Electronically Signed: Eleazar Owens, at 15:26 EST , Service support ,
[2019-03-26 15:41] LABS: Absolute Lymphocyte Count 0.46 X10^3/uL (0.83-4.51); Absolute Neutrophil Count 10.4 X10^3/uL (2.0-7.7); Basophil# 0.03 X10^3/uL; Basophil% 0.3 % (0-1); Eosinophil# 0.03 X10^3/uL; Eosinophils% 0.3 % (0-5); Hematocrit 24.7 % (37-47); Hemoglobin 7.6 g/dL (12.0-15.0); Lymphocyte # 0.46 X10^3/ul (4.0); Lymphocyte % 3.8 % (19-41); Mean Corp Hgb Conc 30.8 g/dL (32-36); Mean Corpuscular Volume 94.3 fL (81-99); Mean Platelet Vol. 8.7 fl (6.2-12.0); Monocyte# 0.61 X10^3/uL; Monocyte% 5.1 % (0-10); NRBC Flagged by Analyzer 0.4 % (0-5); Neutrophil # 10.39 X10^3/uL (2.7-7.7); Neutrophil % 86.6 % (47-70); POSITIVE DIFFERENTIAL YES; Platelet Count 494 K/mm3 (150-450); RBC Distribution Width SD 58.3 fl (35.1-43.9); Red Blood Count 2.62 M/mm3 (4.2-5.4)
[2019-03-26 15:46] LABS: Differential Indicated SCAN CRITERIA MET
[2019-03-26 16:04] LABS: Differential Comment SCANNED; Hypochromasia 1+; Stomatocyte RARE
--- NOTE | 2019-03-26 16:22 | HP.PCM_ITS ---
History of Present Illness Date of Admission: 03/26/19 Chief Complaint: shortness of breath. The patient is a 63 year old F presents to Dr. Gutierrez's office with shortness of breath and weight gain. Patient was directed to the emergency room. Patient was noted to have a potassium of 5.5, sodium of 124 and a creatinine of 3.13. Patient states that over the past month she has gained 30 pounds and less likely 50 pounds over the past few months. Patient is having dyspnea on exertion and is now on oxygen whereas she was not before. There is concerned that patient has a worsening kidney function possible may need to be put back on dialysis. Several months ago patient was very sick and was on dialysis for about 4 weeks but was eventually able to come off of it. Patient has been taking furosemide at home and has not been helping her in regards to removing fluid. Patient states that her abdomen is profoundly distended as well as her lower extremities. [] Past Medical History Past Medical History (Chronic Problems): Chronic Problems Obstructive sleep apnea (Chronic) Respiratory failure with hypoxia (Chronic) Pulmonary fibrosis (Chronic) Acute kidney injury superimposed on chronic kidney disease (Chronic) Obesity (Chronic) Hypertension (Chronic) Depression (Chronic) Controlled diabetes mellitus type II without complication (Chronic) Allergies haloperidol [From Haldol] Allergy (Verified 03/26/19 14:23) Rash haloperidol lactate [From Haldol] Allergy (Verified 03/26/19 14:23) Rash Home Medications: Ambulatory Orders Medication Instructions Recorded Citalopram [Celexa] 40 mg PO QHS 02/05/15 Atorvastatin Calcium [Lipitor] 40 mg PO QHS 06/04/18 Cyclopentolate HCl 1 drop LEFT EYE QHS 06/04/18 Gabapentin [Neurontin] 300 mg PO BID 06/04/18 Montelukast [Singulair] 10 mg PO QHS 06/04/18 Nintedanib Esylate [Ofev] 150 mg PO BIDCM 06/04/18 Pantoprazole Sodium [Protonix] 20 mg PO DAILY 06/04/18 Prednisolone Acetate 2 drop LEFT EYE DAILY 06/04/18 Tetrahydrz/Dext 70/Peg 400/Pvp 1 drop RIGHT EYE BID 06/04/18 [Visine Advanced Eye Drop] Albuterol Aerosols [Ventolin 2.5 mg INHALATION Q4HWA.RT 03/26/19 Aerosols] Ergocalciferol (Vitamin D2) 50 mcg PO TH 03/26/19 [Vitamin D2] Furosemide [Lasix] 40 mg PO DAILY 03/26/19 Insulin Glargine [Lantus SoloStar 40 units SUBCUT DAILY 03/26/19 Pen] Insulin Regular, Human [Novolin R] 8 - 20 unit SQ TIDCM 03/26/19 Lisinopril 20 mg PO DAILY 03/26/19 Prednisone 10 mg PO DAILY 03/26/19 Surgical History: cholecystectomy, tonsillectomy Psychiatric History: Depression 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 Denies: Anorexia, Chills, Fever Eyes: Denies: Blurred vision, Double vision HEENT: Denies: Head Aches, Sinus Congestion, Sinus Drainage Cardiovascular: Reports: Edema. Denies: Chest Pain Respiratory: Reports: Shortness of Breath. Denies: Cough Gastrointestinal: Reports: - - decreased oral intake. Denies: Abdominal Pain, Nausea, Vomiting Genitourinary: Reports: - - minimal urine ouput. Denies: Dysuria Musculoskeletal: Denies: Joint Pain, Joint Tenderness Skin: Reports: - - bruise on left foot.. Denies: Dryness, Jaundice Neurological: Denies: Numbness, Tingling, Focal weakness Psychiatric: Denies: Anxiety, Depression Endocrine: Reports: Change in Body Habitus. Denies: Heat/ Cold Intolerance Hematologic/ Lymphatic: Denies: Easy Bruising, Easy Bleeding, Hx of blood clot Comment: All review systems are otherwise negative except for as mentioned above and in HPI. VTE Information - Inpt Only VTE Present on Admission: No VTE Mechan Device Prophylaxis: None VTE Pharm Prophylaxis ordered?: Yes - Physical Exam Vitals/I&O's: Vital Signs Temp Pulse Resp BP Pulse Ox 36.6 C 55 L 22 H 124/69 H 98 03/26/19 14:21 03/26/19 16:01 03/26/19 16:01 03/26/19 16:01 03/26/19 16:01 Oxygen Flow Rate (L/min) 2 Oxygen Delivery Method Nasal Cannula Weight: 131.542 kg Body Mass Index (BMI) 48.2 Finger Stick Blood Glucose 70 General: Alert, Cooperative HEENT: Atraumatic, Normocephalic Oral: Moist Mucosa, No Gingival or Mucosal Lesions/ Ulcerations Neck: - - Thick neck. Unable to appreciate any JVD Lungs: Diminished, - - Coarse breath sounds bilaterally Cardiovascular: Regular rate, Regular Rhythm, No murmurs Abdomen: Bowel Sounds Present, Non Tender, Distended - Family distended Extremities: Edema - taut Skin: No rashes, No breakdown, - - Bruise on the dorsum of her left foot Musculoskeletal: No Tenderness to Palpation of Joints or Extremities, No Muscle Wasting Neurological: Muscle tone normal, Coordination normal Psych/Mental Status: Normal Affect, Anxious Laboratory Results 03/26/19 15:30: WBC 12.0 H, RBC 2.62 L, Hgb 7.6 L, Hct 24.7 L, MCV 94.3, MCH 29.0, MCHC 30.8 L, RDW Std Deviation 58.3 H, RDW Coeff of Letitia 17.0 H, Plt Count 494 H, MPV 8.7, Immature Gran % (Auto) 3.900 H, Neut % (Auto) 86.6 H, Lymph % (Auto) 3.8 L, [place] % (Auto) 5.1, Eos % (Auto) 0.3, Baso % (Auto) 0.3, Absolute Neuts (auto) 10.4 H, Absolute Lymphs (auto) 0.46 L, Nucleated RBC % 0.4, Differential Comment SCANNED, Hypochromasia 1+, Stomatocytes RARE Chest x-ray personally reviewed and showed poor inspiratory effort but pulmonary vascular congestion noted. EKG reviewed and showed sinus bradycardia but no o ther acute changes noted Assessment/Plan All Active Problems Severe sepsis (Acute) Hyperkalemia (Acute) Metabolic acidosis (Acute) Cocaine dependence, episodic (Resolved) Tobacco use disorder (Resolved) 1. acute HFpEF * EF 65% from 06/05/18 * Plan is to increase diuresis with furosemide 40 mg twice daily, strict I's and O's, daily weights, fluid restriction of 1500 cc/day * Recheck echocardiogram * Complicated by the patient is underlying worsening kidney disease. 2. MARIAN * baseline around 2.8 * nephrology on consult * That she may need to go on dialysis if diuresis does not help 3. Hyponatremia * Likely due to hypervolemia * Diuresis and monitor 4. Hyperkalemia * Suspect related with the patient's worsening kidney disease * Has no EKG changes * Will give 15 g of Kayexalate 5. Diabetes mellitus type 2 * Continue with basal as well as prandial insulins but also add sliding scale. * Check an A1c 6. Anemia * Suspect of chronic disease * Appears stable * Check iron, iron binding capacity, ferritin, B12, folate and TSH. 7. Debility * PT and OT evaluate and treat 8. Ascites * Secondary to the heart failure * Ascites is very prominent and will plan for paracentesis 9. VTE prophylaxis with enoxaparin 10. Advanced care planning: Discussed with patient. Patient wishes to be full CODE STATUS at this time. Code Visit Inpatient E&M: 27387 Init Hosp L3
--- NOTE | 2019-03-26 16:49 | ECHOD_ITS ---
Reason For Study: CHF Procedure This was a 2D Doppler, Color Flow transthoracic echocardiogram. The study was technically difficult. Pt sitting up due to SOB. Exam performed portable in patient room. Left Ventricle Mildly dilated left ventricle. The estimated ejection fraction is 40 %. Stage 2 diastolic dysfunction. Severe hypokinesis of the lateral wall and posterior wall. Right Ventricle Normal RV size. Normal systolic function. Atria The left atrium is mildly enlarged. The right atrium is mildly enlarged. There appears to be an atrial septal aneurysm. Mitral Valve There is no mitral valve stenosis. No mitral valve insufficiency. Tricuspid Valve There is no tricuspid stenosis. Unable to estimate RV systolic pressure due to inadequate jet, pulmonary artery pressure probably normal. Aortic Valve Trisinus/trileaflet aortic valve. Aortic sclerosis, no stenosis. There is no aortic stenosis. No aortic valve insufficiency. Pulmonic Valve There is no pulmonic valvular stenosis. No pulmonic valve insufficiency identified. Great Vessels Normal aortic root. Pericardium/Pleural No pericardial effusion. MMode/2D Measurements & Calculations LVIDd: 5.4 cm IVSd: 1.2 cm Ao root diam: 3.5 cm LVIDs: 4.0 cm LVPWd: 1.1 cm FS: 24.7 % LAV(MOD-sp2): 50.3 ml LA dimension(2D): 4.5 cm Doppler Measurements & Calculations MV E max rod: 100.1 cm/sec Lat Peak E' Rod: 8.9 cm/sec Med Peak E' Rod: 4.7 cm/sec MV A max rod: 113.3 cm/sec E/E' lat: 11.2 E/E' med: 21.5 MV E/A: 0.88 Ao V2 max: 179.5 cm/sec LV V1 max: 141.5 cm/sec PA V2 max: 145.2 cm/sec Ao max P.9 mmHg LV V1 max P.0 mmHg Interpretation Summary The estimated ejection fraction is 40 %. Stage 2 diastolic dysfunction. Severe hypokinesis of the lateral wall and posterior wall There appears to be an atrial septal aneurysm. Ordering Physician: Mike Meza Referring Physician: Mike Meza Performed By: Kristyn Morelos RDCS
[2019-03-26 17:11] LABS: Bedside Glucose 131 mg/dL (70-110)
[2019-03-26 17:36] LABS: Ferritin 570 ng/mL (8-252); Iron 31 ug/dL (50-170); Iron Binding Capacity,Total 228 ug/dL (250-450); PERCENT IRON SATURATION 13.6 % (15.0-55.0); Thyroid Stim Hormone (TSH) 1.85 uIU/mL (0.358-3.74)
[2019-03-26 17:37] LABS: Hemoglobin A1c < 3.5 % (4.2-6.3)
[2019-03-26 17:38] LABS: Vitamin B12 579 pg/mL (211-911)
[2019-03-26] MEDS: Furosemide 40 MG/4 ML Vial IV (18:00)
[2019-03-26] MEDS: Sodium Polystyrene Sulfonate 15 GM/60 ML UDC PO (18:00)
[2019-03-26] MEDS: Insulin Lispro 100 UNIT/ML INSULN.PEN 8 UNIT SC (18:02)
[2019-03-26] MEDS: Acetaminophen 325 MG Tablet 650 MG PO (19:37)
[2019-03-26] MEDS: Albuterol 2.5 MG/3 ML VIAL.NEB. INHALATION ×2 (19:56→23:29)
[2019-03-26] MEDS: Atorvastatin Calcium 40 MG Tablet PO (22:18)
[2019-03-26] MEDS: Gabapentin 300 MG Capsule PO (22:18)
[2019-03-26] MEDS: Montelukast 10 MG Tablet PO (22:18)
[2019-03-26] MEDS: Cyclopentolate 1% 2 ML Bottle 1 DRP LEFT EYE (22:18)
[2019-03-26] MEDS: Citalopram 40 MG TABLET PO (22:18)
[2019-03-26 22:50] LABS: Bedside Glucose 154 mg/dL (70-110)
[2019-03-27] VITALS (14 sets, daily range): BP systolic 112–137; BP diastolic 41–69; PULSE 54–88; RESP 16–18; TEMP 36.6–36.9; O2SAT 92–98
--- NOTE | 2019-03-27 | IMM_PTH ---
PATIENT: SAMREEN ROSARIO LOC: PCU U#:[id number] AGE/SX: 64/F ROOM: [facility] RE03/26/[address]: Dr. Crescencio Thompson MD : 1955 BED: 1 DIS: 04/04/2019 SPEC #: [id number] RECD: 03/31/19 12:28 STATUS: SOUDebbie REQ #: [id number] NISHA: 03/27/19 00:[address]: Alpa Feng DEPT: IMMUNOHISTOCHEMISTRY RECD BY: Macey Masters ENTERED: 03/31/19 12:31 SP TYPE: IMMUNO OTHR DR: DO Dr. Crescencio Galeas MD Dr. Eric Jopperi, DO Dr. Linda Wang, MD Dr. Nagapradee Nagajothi, MD Dr. Victor Velasquez, MD Tissues: PARACENTESIS FLUID Procedures: RCC (add) MSH2 (add) MLH-1 (add) MSH6 (add) Anti-PMS2 (add) NAPSIN A (add) CA-125 (add) Fransico Ret (add) CEA (add) CK19 (add) CK20 (add) CK5-6 (add) CK7 (add) FLORES-2 (add) ER (add) HEP PAR (add) KI-67 (add) MACRO (add) MAMM (add) P53 (add) TTF1 (add) Vimentin (add) Pankeratin (initial) GATA3 (add) S-100 (add) PHYSICIAN [facility] INSTITUTION [address] [address] SPECIMEN INFORMATION: Tissue Source: Paracentesis for cytology Clinical Info: [facility] Specimen Number: [id number] CPT code: 23732, 78848 x24 METHODOLOGY: Deparaffinized sections of prefer/formalin-fixed tissue or PAP/DQ stained slides are incubated with monoclonal/polyclonal antibodies/oligonucleotide probes. Localization is made via biotin free immunoperoxidase method. Appropriate controls are performed and reacted as expected. Results on target cell population are indicated in the following table: RESULTS: ANTIBODY / CLONE RESULT AE1-3 (AE1/AE3/PCK26) positive CK7 (OV-TL12/30) positive CK20 (KS20.8) negative Vimentin (V9) negative Macro (HAM-56) negative CALRET (polyclonal) negative CK5-6 (D5 & 1684) negative P53 (DO-7) positive, >50% Ki-67 (30-9) positive, low GATA3 (L50-823) negative Mammaglobin (31A5) negative ER (6F11) negative FLORES-2 (SP21) positive S-100 (4C4.9) negative CK19 (A53-B/A2.26) positive TTF-1 (8G7G3/1) negative Napsin A (Rabbit Polyclonal) negative RCC (PN-15) negative HepPar (OCh1E5) negative CEA (11-7/TF-3HB-1) negative CA125 (OC125) positive These tests were developed and their performance characteristics determined by [facility]. They may not have been cleared or approved by the U.[place]. Food and Drug Administration. The FDA has determined that such clearance or approval is not necessary. The above immunohistochemical/dualISH markers are ordered and reviewed by the Pathologist. INTERPRETATION: Paracentesis for cytology: Positive for malignant cells consistent with non-small cell carcinoma. See comment. AM:bonifacio 04/02/19 Comment: The IHC profile excludes primaries from breast, lung, liver, lower GI tract, skin, kidney and mesothelium. Upper GI tract including pancreatobiliary system and ovary primaries are not excluded. Clinical correlation is necessary. Case has been reviewed in consultation with Dr. Chung who concurs with the above diagnosis. IDC:[id number] ADDENDUM ADDENDUM ADDENDUM ADDENDUM ADDENDUM ADDENDUM ADDENDUM ADDENDUM ADDENDUM ADDENDUM ADDENDUM ADDENDUM ADDENDUM ADDENDUM ADDENDUM ADDENDUM ADDENDUM 04/23/2019 09:18 ADDENDUM 04/23/2019 09:18 ADDENDUM 04/23/2019 09:18 ADDENDUM 04/23/2019 09:18 ADDENDUM 04/23/2019 09:18 ANTIBODY / CLONE RESULT Ki-67 (30-9) 25% P53 (DO-7) 60% MLH-1 (M1) positive MSH2 (25D12) negative MSH6 (44) positive PMS2 ([id number]) equivocal COMMENT: Result of Microsatellite Instability Study: Microsatellite instability detected. Loss of at least one marker (MSH2) and possible loss of second marker (PMS2). Study is limited by number of malignant cells evaluated on cell block. Repeat testing is recommended on biopsy or resection for definitive evaluation. Clinical correlation is necessary.
[2019-03-27 06:09] LABS: Absolute Lymphocyte Count 1.25 X10^3/uL (0.83-4.51); Basophil# 0.05 X10^3/uL; Basophil% 0.5 % (0-1); Eosinophil# 0.17 X10^3/uL; Eosinophils% 1.6 % (0-5); Hematocrit 24.3 % (37-47); Hemoglobin 7.5 g/dL (12.0-15.0); Lymphocyte # 1.25 X10^3/ul (4.0); Lymphocyte % 11.4 % (19-41); Mean Corp Hgb Conc 30.9 g/dL (32-36); Mean Corpuscular Hgb 29.4 pg (27.0-32.0); Mean Corpuscular Volume 95.3 fL (81-99); Mean Platelet Vol. 8.5 fl (6.2-12.0); Monocyte# 0.95 X10^3/uL; Monocyte% 8.7 % (0-10); NRBC Flagged by Analyzer 0.3 % (0-5); Neutrophil # 8.02 X10^3/uL (2.7-7.7); Neutrophil % 73.3 % (47-70); Platelet Count 441 K/mm3 (150-450); RBC Distribution Width CV 16.6 % (11.6-14.6); RBC Distribution Width SD 57.9 fl (35.1-43.9); Red Blood Count 2.55 M/mm3 (4.2-5.4); White Blood Count 10.9 K/mm3 (4.4-11.0)
[2019-03-27 06:14] LABS: International Normalized Ratio 1.1; Prothrombin Time (Protime)PT. 14.4 SECONDS (11.7-14.9)
[2019-03-27 06:34] LABS: ALB/GLOB Ratio 0.5 RATIO (0.9-2.4); AST(SGOT) 17 U/L (15-37); Alanine Aminotransfer ALT/SGPT 19 U/L (13-56); Alkaline Phosphatase 49 U/L (45-117); Anion Gap 8 (5-15); BUN 84 mg/dL (7-18); BUN/Creat Ratio 26.9 RATIO (10-20); Calcium,Total 8.6 mg/dL (8.5-10.1); Chloride 94 mmol/L (98-107); Creatinine, Serum 3.12 mg/dL (0.55-1.02); EST Glomerular Filtration Rate 16 mL/min (>60); Est Glom Filt Rate - Afr Amer 19 mL/min (>60); Estimated Creatinine Clearance 16.18 ml/min; Globulin 4.1 g/dL (2.2-4.2); Glucose 105 mg/dL (74-106); Potassium 5.1 mmol/L (3.5-5.1); Protein, Total 6.1 g/dL (6.4-8.2); Sodium Level 124 mmol/L (136-145); Thyroid Stim Hormone (TSH) 1.71 uIU/mL (0.358-3.74)
[2019-03-27] MEDS: Albuterol 2.5 MG/3 ML VIAL.NEB. INHALATION ×4 (07:42→19:30)
[2019-03-27 08:44] LABS: BNP,B-Type NATRIURETIC PEPTIDE 520.9 pg/mL (0-100)
[2019-03-27] MEDS: Insulin Lispro 100 UNIT/ML INSULN.PEN SC (09:24)
[2019-03-27] MEDS: Insulin Lispro 100 UNIT/ML INSULN.PEN 8 UNIT SC ×3 (09:24→17:50)
[2019-03-27] MEDS: predniSONE 10 MG Tablet PO (09:27)
[2019-03-27] MEDS: Gabapentin 300 MG Capsule PO ×2 (09:27→21:50)
[2019-03-27] MEDS: Furosemide 40 MG/4 ML Vial IV ×2 (09:27→17:52)
[2019-03-27] MEDS: Pantoprazole Sodium 20 MG Tablet PO (09:28)
[2019-03-27] MEDS: 0.9% Saline Lock 10 ML Syringe IV ×2 (09:32→17:54)
[2019-03-27] MEDS: prednisoLONE eye drops (5 mL) 1 DROP OPTH.BTL 2 DRP LEFT EYE (09:34)
[2019-03-27 09:55] LABS: Bedside Glucose 205 mg/dL (70-110)
--- NOTE | 2019-03-27 10:29 | PCM.CONS.R ---
Consultation - Renal 03/27/19 PCP/ Referring MD: Requesting physician: [] Primary care physician: Toby Aleman MD Reason for Consultation:: MARIAN on CKD Stage 4, hyperkalemia, hyponatremia, fluid overload - History of Present Illness History of Present Illness: The patient is a 64 year old morbidly obese F admitted to [facility] for increased shortness of breath requiring home oxygen, 30# weight gain, abdominal distension with leg edema. She has increased fatigue. She was seen on initial consult in the office with me yesterday. 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 She complained that she cannot drive up to [place] for her nephrology followup. She was hospitalized in [place] back in for MARIAN due to ATN. She was started on hemodialysis in [place] then continued at [facility]. She required hemodialysis for 5 weeks according to the patient then recovered renal function. She was Instructed by [facility] to cut back her lisinopril due to hyperkalemia, worsening renal function. I had her stop her lisinopril completely yesterday at the office appt. Potassium was elevated at 5.5, sodium low at 124. Serum creatinine continue to rise at 3.1 from baseline 2.0. She was started on lasix 20mg daily on 03/21/19 by [facility] nephrology dept. She did not have any diuretic effect. She was seen in the ER twice past month on 03/16/19 and 03/21/19. She has a history of pulmonary hypertension, fibrosis followed by [facility] pulmonary. She is on an immunotherapy that causes diarrhea and has been noncompliant with the medication. - Allergies Allergies: Allergies haloperidol [From Haldol] Allergy (Verified 03/26/19 14:23) Rash haloperidol lactate [From Haldol] Allergy (Verified 03/26/19 14:23) Rash - Current Medications Current Medications: Current Medications Acetaminophen (Tylenol) 650 mg PO Q6H PRN PRN PRN Reason: Pain Score 1-3/Temp > 100.7 F Last Admin: 03/26/19 19:37 Dose: 650 mg Documented by: Albuterol Sulfate (Ventolin Aerosols) 2.5 mg INHALATION Q4HWA.RT DARIO Last Admin: 03/27/19 07:42 Dose: 2.5 mg Documented by: Artificial Tears (Tears Naturale, Artificial Tears) 1 drop RIGHT EYE BID [facility] Last Admin: 03/27/19 09:33 Dose: 1 drop Documented by: Atorvastatin Calcium (Lipitor) 40 mg PO QHS [facility] Last Admin: 03/26/19 22:18 Dose: 40 mg Documented by: Citalopram Hydrobromide (Celexa) 40 mg PO QHS [facility] Last Admin: 03/26/19 22:18 Dose: 40 mg Documented by: Cyclopentolate HCl (Cyclogyl) 1 drop LEFT EYE QHS [facility] Last Admin: 03/26/19 22:18 Dose: 1 drop Documented by: Dextrose (D50w Syringe) 0 gm IV X1 PRN; Protocol PRN Reason: Hypoglycemia Enoxaparin Sodium (Lovenox) 30 mg SC DAILY [facility] Ergocalciferol (Vitamin D) 50,000 unit PO Th@1000 [facility] Last Admin: 03/27/19 09:36 Dose: 50,000 unit Documented by: Furosemide (Lasix) 40 mg IV BIDLX [facility] Last Admin: 03/27/19 09:27 Dose: 40 mg Documented by: Gabapentin (Neurontin) 300 mg PO BID [facility] Last Admin: 03/27/19 09:27 Dose: 300 mg Documented by: Glucagon () 1 mg IM .X1 PRN PRN Reason: Hypoglycemia Insulin Glargine (Lantus (Bkc)) 40 units SC DAILY [facility] Last Admin: 03/27/19 09:40 Dose: 40 u Documented by: Insulin Human Lispro (Humalog Kwikpen (Bkc)) 8 unit SC TIDCM [facility] Last Admin: 03/27/19 09:24 Dose: 8 units Documented by: Insulin Human Lispro (Humalog Kwikpen (Bkc)) 0 unit SC TIDAC [facility]; Protocol Last Admin: 03/27/19 09:24 Dose: 2 u Documented by: Melatonin (Melatonin) 3 mg PO QHS PRN PRN PRN Reason: INSOMNIA Montelukast Sodium (Singulair) 10 mg PO QHS [facility] Last Admin: 03/26/19 22:18 Dose: 10 mg Documented by: Non-Formulary Medication ([facility]) [facility] Last Admin: 03/27/19 09:26 Dose: Not Given Documented by: Ondansetron HCl (Zofran) 4 mg IV Q8H PRN PRN PRN Reason: NAUSEA/VOMITING Pantoprazole Sodium (Protonix) 20 mg PO DAILY [facility] Last Admin: 03/27/19 09:28 Dose: 20 mg Documented by: Prednisolone Acetate (Pred Forte Eye Drops (5 Ml)) 2 drop LEFT EYE DAILY [facility] Last Admin: 03/27/19 09:34 Dose: 2 drop Documented by: Prednisone () 10 mg PO DAILYCM [facility] Last Admin: 03/27/19 09:27 Dose: 10 mg Documented by: Sodium Chloride () 10 - 40 ml IV UD PRN PRN Reason: SALINE FLUSH Last Admin: 03/27/19 09:32 Dose: 10 ml Documented by: - Past Medical History Past Medical History (Chronic Problems): Chronic Problems Obstructive sleep apnea (Chronic) Respiratory failure with hypoxia (Chronic) Pulmonary fibrosis (Chronic) Acute kidney injury superimposed on chronic kidney disease (Chronic) Obesity (Chronic) Hypertension (Chronic) Depression (Chronic) Controlled diabetes mellitus type II without complication (Chronic) - Past Surgical History Surgical History: cholecystectomy, tonsillectomy - Social History Smoking Status: Former smoker - Family History Maternal History Items: Diabetes, Heart Disease Paternal History Items: - - from prostate cancer Review of Systems Constitutional: Reports: Anorexia, Chills, Weakness - in wheelchair, Fatigue. Denies: Fever Eyes: Denies: Vision Change HEENT: Denies: Head Aches Cardiovascular: Denies: Chest Pain Respiratory: Reports: Cough, Shortness of Breath, Shortness of breath at rest, Shortness of breath upon exertion, - - wearing oxygen at home Gastrointestinal: Reports: Abdominal Pain, Nausea. Denies: Constipation, Diarrhea, Vomiting Genitourinary: Reports: - - low urine output. Denies: Dysuria Musculoskeletal: Reports: - - leg swelling Neurological: Reports: Balance problems, - - weakness, in wheelchair Psychiatric: Reports: Anxiety, Depression Hematologic/ Lymphatic: Denies: Hx of blood clot Patient Problems: Active and Suspected Problems Hyponatremia (Acute) - Physical Exam Vitals/I&O's: Vital Signs Temp Pulse Resp BP Pulse Ox 97.9 F 60 18 137/69 H 96 03/27/19 09:45 03/27/19 09:45 03/27/19 09:45 03/27/19 09:45 03/27/19 09:45 Oxygen Flow Rate (L/min) 2.5 Oxygen Delivery Method Nasal Cannula Weight: 148.6 kg Body Mass Index (BMI) 53.8 Finger Stick Blood Glucose 70 Intake and Output for Last 24 Hours 03/25/19 03/26/19 03/27/19 23:59 23:59 23:59 Intake Total 373 / 373 120 / 120 Output Total 1100 / 1100 Balance 373 / -227 -980 / -980 General: Alert, Oriented x3, Cooperative, No apparent distress HEENT: PERRLA, EOMI Oral: Moist Mucosa Neck: Supple Lungs: Clear to auscultation, Diminished Cardiovascular: Regular rate Abdomen: Bowel Sounds Present, Soft, Non Tender, Distended, Obese Extremities: Edema - 1+ pitting BLE Skin: No rashes Neurological: - - no tremor Psych/Mental Status: Normal Affect, Appropriate, Alert and oriented to time, place, person, mood and affect Laboratory Results 03/26/19 15:30: WBC 12.0 H, RBC 2.62 L, Hgb 7.6 L, Hct 24.7 L, MCV 94.3, MCH 29.0, MCHC 30.8 L, RDW Std Deviation 58.3 H, RDW Coeff of Letitia 17.0 H, Plt Count 494 H, MPV 8.7, Immature Gran % (Auto) 3.900 H, Neut % (Auto) 86.6 H, Lymph % (Auto) 3.8 L, [place] % (Auto) 5.1, Eos % (Auto) 0.3, Baso % (Auto) 0.3, Absolute Neuts (auto) 10.4 H, Absolute Lymphs (auto) 0.46 L, Nucleated RBC % 0.4, Differential Comment SCANNED, Hypochromasia 1+, Stomatocytes RARE 03/26/19 15:30: Iron 31 L, TIBC 228 L, Iron Saturation 13.6 L, Ferritin 570 H, Folate 10.10, TSH 1.85 03/26/19 15:30: Vitamin B12 579 03/26/19 15:30: Hemoglobin A1c < 3.5 L 03/26/19 17:04: POC Glucose 131 H 03/26/19 17:14: Troponin I 0.062 H 03/26/19 19:55: Troponin I 0.065 H 03/26/19 22:22: POC Glucose 154 H 03/26/19 22:46: Troponin I 0.058 H 03/27/19 05:40: WBC 10.9, RBC 2.55 L, Hgb 7.5 L, Hct 24.3 L, MCV 95.3, MCH 29.4, MCHC 30.9 L, RDW Std Deviation 57.9 H, RDW Coeff of Letitia 16.6 H, Plt Count 441, MPV 8.5, Immature Gran % (Auto) 4.500 H, Neut % (Auto) 73.3 H, Lymph % (Auto) 11.4 L, [place] % (Auto) 8.7, Eos % (Auto) 1.6, Baso % (Auto) 0.5, Absolute Neuts (auto) 8.0 H, Absolute Lymphs (auto) 1.25, Nucleated RBC % 0.3 03/27/19 05:40: PT 14.4, INR 1.1 03/27/19 05:40: Sodium 124 L, Potassium 5.1, Chloride 94 L, Carbon Dioxide 22.0, Anion Gap 8, BUN 84 H, Creatinine 3.12 H, Estim Creat Clear Calc 16.18, Est GFR (MDRD) Af Amer 19 L, Est GFR (MDRD) Non-Af 16 L, BUN/Creatinine Ratio 26.9 H, Glucose 105, Calcium 8.6, Total Bilirubin 0.50, AST 17, ALT 19, Alkaline Phosphatase 49, Total Protein 6.1 L, Albumin 2.0 L, Globulin 4.1, Albumin/Globulin Ratio 0.5 L, TSH 1.71 03/27/19 05:40: B-Natriuretic Peptide 520.9 H 03/27/19 09:18: POC Glucose 205 H Clinical Impression(s) from Imaging Studies Chest X-Ray 03/26/19 15:00 IMPRESSION: Mild degree of vascular congestion and CHF. Electronically Signed: Eleazar Owens, at 15:26 EST , Service support , Current Medications Acetaminophen (Tylenol) 650 mg PO Q6H PRN PRN PRN Reason: Pain Score 1-3/Temp > 100.7 F Last Admin: 03/26/19 19:37 Dose: 650 mg Documented by: Albuterol Sulfate (Ventolin Aerosols) 2.5 mg INHALATION Q4HWA.RT [facility] Last Admin: 03/27/19 07:42 Dose: 2.5 mg Documented by: Artificial Tears (Tears Naturale, Artificial Tears) 1 drop RIGHT EYE BID [facility] Last Admin: 03/27/19 09:33 Dose: 1 drop Documented by: Atorvastatin Calcium (Lipitor) 40 mg PO QHS [facility] Last Admin: 03/26/19 22:18 Dose: 40 mg Documented by: Citalopram Hydrobromide (Celexa) 40 mg PO QHS [facility] Last Admin: 03/26/19 22:18 Dose: 40 mg Documented by: Cyclopentolate HCl (Cyclogyl) 1 drop LEFT EYE QHS [facility] Last Admin: 03/26/19 22:18 Dose: 1 drop Documented by: Dextrose (D50w Syringe) 0 gm IV X1 PRN; Protocol PRN Reason: Hypoglycemia Enoxaparin Sodium (Lovenox) 30 mg SC DAILY [facility] Ergocalciferol (Vitamin D) 50,000 unit PO Th@1000 [facility] Last Admin: 03/27/19 09:36 Dose: 50,000 unit Documented by: Furosemide (Lasix) 40 mg IV BIDLX [facility] Last Admin: 03/27/19 09:27 Dose: 40 mg Documented by: Gabapentin (Neurontin) 300 mg PO BID [facility] Last Admin: 03/27/19 09:27 Dose: 300 mg Documented by: Glucagon () 1 mg IM .X1 PRN PRN Reason: Hypoglycemia Insulin Glargine (Lantus (Bkc)) 40 units SC DAILY [facility] Last Admin: 03/27/19 09:40 Dose: 40 u Documented by: Insulin Human Lispro (Humalog Kwikpen (Bkc)) 8 unit SC TIDCM [facility] Last Admin: 03/27/19 09:24 Dose: 8 units Documented by: Insulin Human Lispro (Humalog Kwikpen (Bkc)) 0 unit SC TIDAC [facility]; Protocol Last Admin: 03/27/19 09:24 Dose: 2 u Documented by: Melatonin (Melatonin) 3 mg PO QHS PRN PRN PRN Reason: INSOMNIA Montelukast Sodium (Singulair) 10 mg PO QHS [facility] Last Admin: 03/26/19 22:18 Dose: 10 mg Documented by: Non-Formulary Medication ([facility]ib [facility]ylate) [facility] Last Admin: 03/27/19 09:26 Dose: Not Given Documented by: Ondansetron HCl (Zofran) 4 mg IV Q8H PRN PRN PRN Reason: NAUSEA/VOMITING Pantoprazole Sodium (Protonix) 20 mg PO DAILY [facility] Last Admin: 03/27/19 09:28 Dose: 20 mg Documented by: Prednisolone Acetate (Pred Forte Eye Drops (5 Ml)) 2 drop LEFT EYE DAILY [facility] Last Admin: 03/27/19 09:34 Dose: 2 drop Documented by: Prednisone () 10 mg PO DAILYCM [facility] Last Admin: 03/27/19 09:27 Dose: 10 mg Documented by: Sodium Chloride () 10 - 40 ml IV UD PRN PRN Reason: SALINE FLUSH Last Admin: 03/27/19 09:32 Dose: 10 ml Documented by: Assessment/Plan All Active Problems Hyponatremia (Acute) Severe sepsis (Acute) Hyperkalemia (Acute) Metabolic acidosis (Acute) Cocaine dependence, episodic (Resolved) Tobacco use disorder (Resolved) 1. Marian on CKD stage 4. UA negative for protein, blood in past. Hx ATN requiring temporary hemodialysis. Baseline creatinine 2.0 now at 3.1. Check 24h urine CRCL, TP. Likely has underlying nephrosclerosis, chronic tubulointerstitial disease. 2. Hyperkalemia stop lisinopril 3. Hyponatremia due to volume expansion. Iv lasix 4. CHF, fluid overload, edema. continue iv lasix, unresponsive or oral therapy 5. Abdominal pain, distension, ascites on recent CT abdomen. 6. Morbid obesity wheelchair bound 7. Pulmonary hypertension likely contributing to volume overload 8. Pulmonary fibrosis followed by pulmonary 9. DM2 stable 10 HTN stable
[2019-03-27 12:01] LABS: Bedside Glucose 148 mg/dL (70-110)
--- NOTE | 2019-03-27 12:20 | CASEMGMT ---
RN CHAI RN ASSESSMENT CM to room to meet with patient for initial transition planning/care coordination assessment. SAVANNAH PAULA introduced self and role at [facility]. Pt voices understanding and consents to assessment at this time. Pt resting in bed in no distress at this time. Pt is A/O at this time and answers all questions appropriately. Care providers, pharmacy, and demographics verified at this time. PCP: Dr Aleman Specialists: Dr Gutierrez--commercial sales representative, Dr Olivia--filer metal patterns, Danyelle Rodriguez--LATHING SUPERVISOR @ [facility] for acid reflux. Preferred Pharmacy: [facility] [place] Insurance: MCR A, B, JAVIER [employer]sover Prescription Benefit: Yes Living Will/HPOA: Has both LW and Chayabridgettjuan VENTURAA, who is her Pete luz. Copies of both on file @ [facility]. LNOK: Pete Luz. 2 adult sons. Living Arrangements: Lives with her fiPete francis, in a 2-story home. [employer]. 2 steps to enter. Pt states since she has been declining, Pete has been needing to assist her with ADL's such as bathing and dressing. Pete also assists with all home mgmt tasks. She states Pete works full-time and she is home alone when he is at work. Pt states she could use an aide in the home. Provided with information on Passport services/contact number to call to see if she qualifies. Receives Meals on Wheels 5 days/week. Transportation: States she was driving but has not been able to lately d/t being too ill/weak. Pete drives but it is difficult for him d/t working full-time. She is interested in resources for transportation. NIKOLE Harrison, made aware. DME: Has BIPAP from [employer], Glucometer, and nebulizer. States she wears oxygen @ home @ 2.5 L/M. States she purchased an oxygen tank from [employer] and gets it re-filled. Does not have portability. She would like to get oxygen through insurance if she qualifies for it at discharge. Given list of local DME companies and she would like [facility]. Also states if she returns home, she may need a shower chair and walker @ discharge, depending on how she is doing at that time. HHC/SNF: No history of SNF. Has been to [facility] 06/2018. Hx of [facility] but does not remember name of agency. Discussed discharge planning and pt's wishes @ discharge. Pt states she may need to go to a SNF @ discharge and would be agreeable if needed. 1st choice would be [facility]. NIKOLE Harrison, made aware. If is well enough to d/c home, would like HHC. Given list of local [facility] agencies to look over. Pt voices no further concerns/needs at this time. Advised pt to ask for CM if any further questions/concerns/needs arise. Voices understanding. PLAN: SNF vs Home w/HHC. PT/OT evals pending. If pt discharges home: 1. May need Home oxygen. Pt has oxygen tank at home that she pays for [id number] but would like to get through insurance if she qualifies. Will need home oxygen testing completed prior to discharge. [employer] is DME of choice. 2. May need W/C and shower chair. 3. Would like HHC @ discharge if does not go to SNF. Will need SN, PT/OT, and aides. Given list of [facility] agencies. No preference given yet. Edyta RUIZN RN CM
--- NOTE | 2019-03-27 12:52 | PN_ITS ---
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 Patient states she has been gaining weight for the past couple of months and thinks she has gained about 30 pounds. She also had shortness of breath with exertion and orthopnea as well as PND. She is now on oxygen patient not been on oxygen previously. He on dialysis on account of MARIAN incision was successfully taken off dialysis. However she does have underlying CKD. Patient seen and examined this morning. She still complained of shortness of breath and distention of her abdomen. She denied any cough or chest pain, palpitations, fever chills, dizziness, diarrhea vomiting. Review of systems otherwise negative. Labs and vitals reviewed. She is hemodynamically stable. Sodium is 124 though she has chronic hyponatremia. She is on 2.5 L of oxygen which is what she is on at home. Creatinine is 3.12. BNP was checked this morning and is 520.9. Hemoglobin is 7.5. She has made 1.1 L of urine so far since admission. Vitals/I&O's: Vital Signs Temp Pulse Resp BP Pulse Ox 97.9 F 61 16 137/69 H 96 03/27/19 09:45 03/27/19 11:00 03/27/19 10:53 03/27/19 09:45 03/27/19 09:45 Oxygen Flow Rate (L/min) 2.5 Oxygen Delivery Method Nasal Cannula Weight: 327 lb 9.71 oz Body Mass Index (BMI) 53.8 Finger Stick Blood Glucose 70 Intake and Output for Last 24 Hours 03/25/19 03/26/19 03/27/19 23:59 23:59 23:59 Intake Total 373 / 373 120 / 120 Output Total 1100 / 1100 Balance 373 / -227 -980 / -980 General: Alert, Oriented x3, Cooperative, - - super morbid obesity HEENT: Atraumatic, PERRLA, EOMI, Normocephalic Oral: Dry Mucosa Neck: Supple, No JVD, Negative Carotid Bruits Lungs: Clear to auscultation, Normal air movement, No rhonchi, No wheeze, Diminished - decreased breath sounds bibasally; no wheezes or crackles, - - on 2.5L of oxygen by nasal canula Cardiovascular: Regular rate, Regular Rhythm, Normal S1, Normal S2, No murmurs Abdomen: Bowel Sounds Present, Soft, Non-Distended, No Hepato-splenomegaly, - - abdomen markedly distended, positive fluid thrill. Extremities: No clubbing, No cyanosis, Capillary Refill Less than 3 Seconds, - - 1+ bipedal pitting edema Skin: No rashes, No breakdown Musculoskeletal: No Tenderness to Palpation of Joints or Extremities, No Muscle Wasting Lymphatic: No Cervical, Supraclavicular, or Inguinal Adenopathy Neurological: Cranial nerves II-XII grossly intact, Neuro grossly intact, Motor Exam 5/5 strength throughout Psych/Mental Status: Normal Affect, Appropriate, Alert and oriented to time, place, person, mood and affect Laboratory Results 03/26/19 15:30: WBC 12.0 H, RBC 2.62 L, Hgb 7.6 L, Hct 24.7 L, MCV 94.3, MCH 29.0, MCHC 30.8 L, RDW Std Deviation 58.3 H, RDW Coeff of Letitia 17.0 H, Plt Count 494 H, MPV 8.7, Immature Gran % (Auto) 3.900 H, Neut % (Auto) 86.6 H, Lymph % (Auto) 3.8 L, [place] % (Auto) 5.1, Eos % (Auto) 0.3, Baso % (Auto) 0.3, Absolute Neuts (auto) 10.4 H, Absolute Lymphs (auto) 0.46 L, Nucleated RBC % 0.4, Differential Comment SCANNED, Hypochromasia 1+, Stomatocytes RARE 03/26/19 15:30: Iron 31 L, TIBC 228 L, Iron Saturation 13.6 L, Ferritin 570 H, Folate 10.10, TSH 1.85 03/26/19 15:30: Vitamin B12 579 03/26/19 15:30: Hemoglobin A1c < 3.5 L 03/26/19 17:04: POC Glucose 131 H 03/26/19 17:14: Troponin I 0.062 H 03/26/19 19:55: Troponin I 0.065 H 03/26/19 22:22: POC Glucose 154 H 03/26/19 22:46: Troponin I 0.058 H 03/27/19 05:40: WBC 10.9, RBC 2.55 L, Hgb 7.5 L, Hct 24.3 L, MCV 95.3, MCH 29.4, MCHC 30.9 L, RDW Std Deviation 57.9 H, RDW Coeff of Letitia 16.6 H, Plt Count 441, MPV 8.5, Immature Gran % (Auto) 4.500 H, Neut % (Auto) 73.3 H, Lymph % (Auto) 11.4 L, [place] % (Auto) 8.7, Eos % (Auto) 1.6, Baso % (Auto) 0.5, Absolute Neuts (auto) 8.0 H, Absolute Lymphs (auto) 1.25, Nucleated RBC % 0.3 03/27/19 05:40: PT 14.4, INR 1.1 03/27/19 05:40: Sodium 124 L, Potassium 5.1, Chloride 94 L, Carbon Dioxide 22.0, Anion Gap 8, BUN 84 H, Creatinine 3.12 H, Estim Creat Clear Calc 16.18, Est GFR (MDRD) Af Amer 19 L, Est GFR (MDRD) Non-Af 16 L, BUN/Creatinine Ratio 26.9 H, Glucose 105, Calcium 8.6, Total Bilirubin 0.50, AST 17, ALT 19, Alkaline Phosphatase 49, Total Protein 6.1 L, Albumin 2.0 L, Globulin 4.1, Albumin/Globulin Ratio 0.5 L, TSH 1.71 03/27/19 05:40: B-Natriuretic Peptide 520.9 H 03/27/19 09:18: POC Glucose 205 H 03/27/19 11:46: POC Glucose 148 H Diagnostic Data Chest X-Ray 03/26/19 15:00 IMPRESSION: Mild degree of vascular congestion and CHF. Electronically Signed: Eleazar Roman, at 15:26 EST , Service support , Current Medications Acetaminophen (Tylenol) 650 mg PO Q6H PRN PRN PRN Reason: Pain Score 1-3/Temp > 100.7 F Last Admin: 03/26/19 19:37 Dose: 650 mg Documented by: Albuterol Sulfate (Ventolin Aerosols) 2.5 mg INHALATION Q4HWA.RT [facility] Last Admin: 03/27/19 10:53 Dose: 2.5 mg Documented by: Artificial Tears (Tears Naturale, Artificial Tears) 1 drop RIGHT EYE BID [facility] Last Admin: 03/27/19 09:33 Dose: 1 drop Documented by: Atorvastatin Calcium (Lipitor) 40 mg PO QHS [facility] Last Admin: 03/26/19 22:18 Dose: 40 mg Documented by: Citalopram Hydrobromide (Celexa) 40 mg PO QHS [facility] Last Admin: 03/26/19 22:18 Dose: 40 mg Documented by: Cyclopentolate HCl (Cyclogyl) 1 drop LEFT EYE QHS [facility] Last Admin: 03/26/19 22:18 Dose: 1 drop Documented by: Dextrose (D50w Syringe) 0 gm IV X1 PRN; Protocol PRN Reason: Hypoglycemia Enoxaparin Sodium (Lovenox) 30 mg SC DAILY [facility] Ergocalciferol (Vitamin D) 50,000 unit PO Th@1000 [facility] Last Admin: 03/27/19 09:36 Dose: 50,000 unit Documented by: Furosemide (Lasix) 40 mg IV BIDLX [facility] Last Admin: 03/27/19 09:27 Dose: 40 mg Documented by: Gabapentin (Neurontin) 300 mg PO BID [facility] Last Admin: 03/27/19 09:27 Dose: 300 mg Documented by: Glucagon () 1 mg IM .X1 PRN PRN Reason: Hypoglycemia Insulin Glargine (Lantus (Bkc)) 40 units SC DAILY [facility] Last Admin: 03/27/19 09:40 Dose: 40 u Documented by: Insulin Human Lispro (Humalog Kwikpen (Bkc)) 8 unit SC TIDCM [facility] Last Admin: 03/27/19 09:24 Dose: 8 units Documented by: Insulin Human Lispro (Humalog Kwikpen (Bkc)) 0 unit SC TIDAC [facility]; Protocol Last Admin: 03/27/19 12:04 Dose: Not Given Documented by: Melatonin (Melatonin) 3 mg PO QHS PRN PRN PRN Reason: INSOMNIA Montelukast Sodium (Singulair) 10 mg PO QHS [facility] Last Admin: 03/26/19 22:18 Dose: 10 mg Documented by: Non-Formulary Medication ([facility]) [facility] Last Admin: 03/27/19 09:26 Dose: Not Given Documented by: Ondansetron HCl (Zofran) 4 mg IV Q8H PRN PRN PRN Reason: NAUSEA/VOMITING Pantoprazole Sodium (Protonix) 20 mg PO DAILY [facility] Last Admin: 03/27/19 09:28 Dose: 20 mg Documented by: Prednisolone Acetate (Pred Forte Eye Drops (5 Ml)) 2 drop LEFT EYE DAILY [facility] Last Admin: 03/27/19 09:34 Dose: 2 drop Documented by: Prednisone () [facility] Last Admin: 03/27/19 09:27 Dose: 10 mg Documented by: Sodium Chloride () 10 - 40 ml IV UD PRN PRN Reason: SALINE FLUSH Last Admin: 03/27/19 09:32 Dose: 10 ml Documented by: STROKE Vital Signs/Narrative: Vital Signs Temp Pulse Resp BP Pulse Ox 03/27/19 11:00 61 03/27/19 10:53 62 16 03/27/19 09:45 97.9 F 60 18 137/69 H 96 Medical Necessity - Tobacco Use Smoking Status: Former smoker Tobacco Use: Cigarettes Assessment/Plan All Active Problems Hyponatremia (Acute) Severe sepsis (Acute) Hyperkalemia (Acute) Metabolic acidosis (Acute) Cocaine dependence, episodic (Resolved) Tobacco use disorder (Resolved) 1. Acute exacerbation of HFpEF * BNP is 520, had SOB with LE swelling. * on IV lasix 40mg bid. * urine output since admission is ~ 1.5L * 2D echo(06/04): EF of 65%, with normal left ventricular size and thickness and normal diastolic for age with moderately dilated right ventricle. Right atrium moderately enlarged as well as left atrium. RVSP 56 mmHg. * Will monitor kidney function Lasix. * Monitor intake and output. Fluid restriction to 1500 cc daily. * repeat 2D echo pending. * 2. Massive ascites likely due to worsening CKD and acute heart failure * Abdomen is massively distended with positive fluid thrill. Patient states she is been getting edematous over the last month and has gained about 30 pounds. * Creatinine was 3.12 on admission. The lowest this is been is around 2.31 but creatinine has ranged between 2 and 4.5 since 2015. * For paracentesis today. Await fluid analysis. * 3. CKD * Creatinine is 3.12 today. Creatinine has ranged between 2-4 since 2014. * I therefore do not think patient has MARIAN. Nephrology on board. * 4. Hyponatremia: * Sodiuim is 129. Is chronic. * Likely a hypotonic hypervolemic hyponatremia from fluid overload. * Will monitor with diuresis and paracentesis to look for improvement. 5. Hyperkalemia: Potassium was 5.5 on admission. Has resolved. Is 5.1 now. 6. Anemia: * This is chronic. * Hemoglobin is 7.5. Hemoglobin has ranged between 7 and 8 since May 2018. * iron panel showed iron of 31, with TIBC of 228, iron saturation of 13.6 and ferritin of 570, giving an anemia of chronic disease picture 7. Debility due to morbid obesity * PT OT on board. * Fall precautions. * 8. Type 2 diabetes mellitus: * On Lantus 40 units daily and insulin sliding scale. Accu-Cheks AC at bedtime. * 9. Pulmonary fibrosis: On Ofev and on prednisone. Not sure why she is on prednisone. Records requested. DVT prophylaxis: Lovenox Code Visit Inpatient E&M: 43057 Subs Hosp L3
[2019-03-27 13:21] LABS: Urine Sodium 31 mmol/L (Not Establ.)
--- NOTE | 2019-03-27 13:40 | FLU_PTH ---
PATIENT: SAMREEN ROSARIO LOC: PCU U#:[id number] AGE/SX: 64/F ROOM: [facility] RE03/26/[address]: Dr. Crescencio Thompson MD : [id number] BED: 1 DIS: 04/04/2019 SPEC #: [id number] RECD: 03/27/19 14:17 STATUS: SAUL REQ #: [id number] NISHA: 03/27/19 13:[address]: Alpa Feng DEPT: CYTOLOGY RECD BY: Clive Lyons ENTERED: 03/28/19 11:52 SP TYPE: Fluid OTHR DR: DO Dr. Mike Galeas DO Dr. Nagapradee Nagajothi, MD Dr. Victor Velasquez, MD Tissues: PARACENTESIS FLUID Procedures: Special Stain Group II Surgery Specimen Level IV Cytospin Fluid HEADER OPERATION: Paracentesis PRE-OP DIAGNOSIS: CHF TISSUE SUBMITTED: Paracentesis fluid for cytology DIAGNOSIS CYTOLOGY Paracentesis fluid for cytology (cytospin and cell block): Positive for malignant cells consistent with non-small cell carcinoma. See comment. AM:rg 03/31/19 COMMENT Immunohistochemistry ([id number]) supports the above diagnosis. The IHC profile does not favor primaries arising in breast, lung, lower GI tract, skin, kidney and mesothelium. Upper GI tract including pancreatobiliary system and ovarian primaries are not excluded. Clinical correlation is necessary. Case has been reviewed in consultation with Dr. Chung who concurs with the above diagnosis. IDC:SJ CYTOLOGY STUDY Slides are reviewed. CYTOLOGY GROSS Received is 95 ml of clear yellow fluid labeled with the patient's name and and designated per the requisition as paracentesis. Submitted for cytology preparation including cell block. / 03/28/19 TC:0 CPT: 69041, 18041
[2019-03-27 14:34] LABS: Body Fluid Mononuclear WBC # 0.713 10^3/uL; Body Fluid Mononuclear WBC % 81.8 %; Body Fluid Polynuclear WBC # 0.159 10^3/uL; Body Fluid Polynuclear WBC % 18.2 %; White Blood Count/Body Fluid 0.872 10^3/uL
--- NOTE | 2019-03-27 14:41 | CHAPLAIN ---
patient and bed are out of room; left a calling card
[2019-03-27 14:54] LABS: Glucose, Body Fluid 128 mg/dL (40-70); Protein, Body Fluid 4.5 g/dL (Not Establ.)
[2019-03-27 15:00] LABS: Auto B Fluid Analyzer BKGD Ct COUNTS W/IN LIMITS (W/IN LIMITS)
[2019-03-27 15:01] LABS: Appearance/Body Fluid SL CLDY; Color/Body Fluid LT YEL; Source- Body Fluid OTHER
[2019-03-27 15:07] LABS: Lymphocytes 24 %; Monocytes 9 %; Neutrophil (Segs) 67 %; Red Cell Count/Body Fluid 14 /mm3
[2019-03-27 15:08] LABS: Body Fluid QC Type(s) BF1Q
--- NOTE | 2019-03-27 16:49 | US_ITS ---
PROCEDURE: Ultrasound guided paracentesis. DATE OF EXAMINATION: March 27, 2019.. INDICATION: Female, 64 years old. Ascites. PHYSICIAN: Eleazar Owens M.D. TECHNIQUE: The risks, benefits, and alternatives to the procedure were explained to the patient. The specific risks of bleeding, infection, and damage to bowel were detailed and accepted. Witnessed informed consent was obtained. The abdomen was ultrasonographically surveyed. An appropriate pocket of fluid was identified at the right lower quadrant. The skin were cleaned and prepped in the usual sterile fashion. Using ultrasound guidance, the peritoneal cavity was accessed with a 5-Trinidadian paracentesis needle/catheter system. The trocar was removed. A total of 6800 ml of allen-colored fluid were removed from the peritoneal cavity. The catheter was removed and a sterile dressing was applied. The procedure was well tolerated. US/Paracentesis with US IMPRESSION: Ultrasound guided paracentesis. Electronically Signed: Eleazar Owens, at 14:53 EST , Service support ,
--- NOTE | 2019-03-27 17:00 | CHAPLAIN ---
return to room and patient is present but busy; made another attempt but unavailable again
[2019-03-27 18:06] LABS: Bedside Glucose 131 mg/dL (70-110)
[2019-03-27] MEDS: Citalopram 40 MG TABLET PO (21:50)
[2019-03-27] MEDS: Atorvastatin Calcium 40 MG Tablet PO (21:50)
[2019-03-27] MEDS: Montelukast 10 MG Tablet PO (21:50)
[2019-03-27] MEDS: Cyclopentolate 1% 2 ML Bottle 1 DRP LEFT EYE (21:51)
[2019-03-27 22:00] LABS: Bedside Glucose 160 mg/dL (70-110)
[2019-03-28] VITALS (14 sets, daily range): BP systolic 104–121; BP diastolic 55–67; PULSE 65–102; RESP 16–18; TEMP 36.6–36.7; O2SAT 92–99
[2019-03-28 05:13] LABS: Absolute Neutrophil Count 9.1 X10^3/uL (2.0-7.7); Basophil# 0.04 X10^3/uL; Basophil% 0.3 % (0-1); Eosinophil# 0.16 X10^3/uL; Eosinophils% 1.3 % (0-5); Hematocrit 24.9 % (37-47); Hemoglobin 7.6 g/dL (12.0-15.0); Lymphocyte % 10.1 % (19-41); Mean Corp Hgb Conc 30.5 g/dL (32-36); Mean Corpuscular Hgb 28.7 pg (27.0-32.0); Mean Platelet Vol. 8.8 fl (6.2-12.0); Monocyte# 0.99 X10^3/uL; Monocyte% 8.3 % (0-10); NRBC Flagged by Analyzer 0.2 % (0-5); Neutrophil # 9.14 X10^3/uL (2.7-7.7); Neutrophil % 76.9 % (47-70); Platelet Count 459 K/mm3 (150-450); RBC Distribution Width CV 16.8 % (11.6-14.6); RBC Distribution Width SD 57.3 fl (35.1-43.9); Red Blood Count 2.65 M/mm3 (4.2-5.4); White Blood Count 11.9 K/mm3 (4.4-11.0)
[2019-03-28 05:41] LABS: ALB/GLOB Ratio 0.5 RATIO (0.9-2.4); AST(SGOT) 18 U/L (15-37); Alanine Aminotransfer ALT/SGPT 16 U/L (13-56); Albumin, Serum 1.8 g/dL (3.2-5.0); Alkaline Phosphatase 51 U/L (45-117); Anion Gap 10 (5-15); BUN 85 mg/dL (7-18); BUN/Creat Ratio 31.1 RATIO (10-20); Calcium,Total 8.2 mg/dL (8.5-10.1); Chloride 100 mmol/L (98-107); Creatinine, Serum 2.73 mg/dL (0.55-1.02); EST Glomerular Filtration Rate 19 mL/min (>60); Est Glom Filt Rate - Afr Amer 23 mL/min (>60); Estimated Creatinine Clearance 18.49 ml/min; Globulin 3.9 g/dL (2.2-4.2); Glucose 127 mg/dL (74-106); Phosphorus 5.2 mg/dL (2.5-4.9); Protein, Total 5.7 g/dL (6.4-8.2); Sodium Level 128 mmol/L (136-145)
[2019-03-28] MEDS: Albuterol 2.5 MG/3 ML VIAL.NEB. INHALATION ×3 (07:14→19:13)
[2019-03-28 09:10] LABS: Bedside Glucose 127 mg/dL (70-110)
--- NOTE | 2019-03-28 10:31 | CASEMGMT ---
Addendum entered by Maria Ines Caldwell 03/28/19 13:03: [facility] can take pt when she is ready. SW let pt know [facility] can take her when she is ready, pt agreeable, states understanding. SW placed green sheet on the chart with hospital exemption form in anticipation of weekend discharge. No further needs at this time from social work. JOSE Carmichael Original Note: Referral sent to [facility], NIKOLE called [facility] at [facility] and asked her to review, let SW know if they can take pt. Hospital exemption started in . NIKOLE will continue to follow. JOSE Carmichael
--- NOTE | 2019-03-28 12:26 | PN_ITS ---
Patient Problems: Active and Suspected Problems Hyponatremia (Acute) Subjective: Patient seen and examined. She had no complaints today. She had abdominal paracentesis by radiology yesterday with removal of 6.8 L of fluid. She says shortness of breath has improved significantly today. She denies any palpitations or dizziness, fever or chills, cough, abdominal pain, diarrhea vomiting. Review of symptoms otherwise negative. Sodium is 128 today, and Cr is 2.73 today. Vitals/I&O's: Vital Signs Temp Pulse Resp BP Pulse Ox 97.8 F 82 18 104/56 L 96 03/28/19 10:35 03/28/19 10:35 03/28/19 10:35 03/28/19 10:35 03/28/19 10:35 Oxygen Flow Rate (L/min) [4] 2.5 Oxygen Flow Rate (L/min) [3] 2.5 Oxygen Flow Rate (L/min) [2] 2.5 Oxygen Flow Rate (L/min) [1 ( 2.5 Initial Baseline)] Oxygen Flow Rate (L/min) 2.5 Oxygen Delivery Method [4] Nasal Cannula Oxygen Delivery Method [3] Room Air Oxygen Delivery Method [2] Nasal Cannula Oxygen Delivery Method [1 ( Nasal Cannula Initial Baseline)] Oxygen Delivery Method Nasal Cannula Weight: 307 lb 12.245 oz Body Mass Index (BMI) 53.8 Finger Stick Blood Glucose 70 Intake and Output for Last 24 Hours 03/26/19 03/27/19 03/28/19 23:59 23:59 23:59 Intake Total 373 / 373 500 / 500 110 / 110 Output Total 3850 / 3850 1999 Balance 373 / -227 -3350 / -3350 -1890 / -1890 General: Alert, Oriented x3, Cooperative, - - super morbid obesity HEENT: Atraumatic, PERRLA, EOMI, Normocephalic Oral: Dry Mucosa Neck: Supple, No JVD, Negative Carotid Bruits Lungs: Clear to auscultation, Normal air movement, No rhonchi, No wheeze, Dimini shed - decreased breath sounds bibasally; no wheezes or crackles, - - on 2.5L of oxygen by nasal canula Cardiovascular: Regular rate, Regular Rhythm, Normal S1, Normal S2, No murmurs Abdomen: Bowel Sounds Present, Soft, Non-Distended, No Hepato-splenomegaly, - - abdominal distension has improved since paracentesis Extremities: No clubbing, No cyanosis, Capillary Refill Less than 3 Seconds, - - 1+ bipedal pitting edema Skin: No rashes, No breakdown Musculoskeletal: No Tenderness to Palpation of Joints or Extremities, No Muscle Wasting Lymphatic: No Cervical, Supraclavicular, or Inguinal Adenopathy Neurological: Cranial nerves II-XII grossly intact, Neuro grossly intact, Motor Exam 5/5 strength throughout Psych/Mental Status: Normal Affect, Appropriate, Alert and oriented to time, place, person, mood and affect Laboratory Results 03/27/19 13:00: Ur Random Sodium 31 03/27/19 13:00: Urine Creatinine 61.50 03/27/19 13:40: Fluid Glucose 128 H, Fluid Total Protein 4.5 03/27/19 13:40: Fluid Source OTHER, Fluid Color LT YEL, Fluid Appearance SL CLDY, Fluid WBC 0.872, Fluid RBC 14, Fluid Tot Cell Count 0.910 H, Fld Polynuclear WBCs # 0.159, Fld Polynuclear WBCs % 18.2, Fluid Mononuclear WBCs 0.713, Fld Mononuclear WBCs % 81.8, Fluid Neutrophils 67, Fluid Lymphocytes 24, Fluid Monocytes 9, Fl Pathologist Comment May follow, Fluid Comment 2 SEE COMMENT 03/27/19 13:40: Miscellaneous Test Pending 03/27/19 17:48: POC Glucose 131 H 03/27/19 21:53: POC Glucose 160 H 03/28/19 04:42: Sodium 128 L, Potassium 5.0, Chloride 100, Carbon Dioxide 18.0 L , Anion Gap 10, BUN 85 H, Creatinine 2.73 H, Estim Creat Clear Calc 18.49, Est GFR (MDRD) Af Amer 23 L, Est GFR (MDRD) Non-Af 19 L, BUN/Creatinine Ratio 31.1 H , Glucose 127 H, Calcium 8.2 L, Phosphorus 5.2 H, Total Bilirubin 0.20, AST 18, ALT 16, Alkaline Phosphatase 51, Total Protein 5.7 L, Albumin 1.8 L, Globulin 3.9, Albumin/Globulin Ratio 0.5 L 03/28/19 04:42: WBC 11.9 H, RBC 2.65 L, Hgb 7.6 L, Hct 24.9 L, MCV 94.0, MCH 28.7, MCHC 30.5 L, RDW Std Deviation 57.3 H, RDW Coeff of Letitia 16.8 H, Plt Count 459 H, MPV 8.8, Immature Gran % (Auto) 3.100 H, Neut % (Auto) 76.9 H, Lymph % (Auto) 10.1 L, [place] % (Auto) 8.3, Eos % (Auto) 1.3, Baso % (Auto) 0.3, Absolute Neuts (auto) 9.1 H, Absolute Lymphs (auto) 1.20, Nucleated RBC % 0.2 03/28/19 09:00: POC Glucose 127 H Diagnostic Data Chest X-Ray 03/26/19 15:00 IMPRESSION: Mild degree of vascular congestion and CHF. Electronically Signed: Eleazar Owens, at 15:26 EST , Service support , Paracentesis Ultrasound 03/27/19 16:49 IMPRESSION: Ultrasound guided paracentesis. Electronically Signed: Eleazar Owens, at 14:53 EST , Service support , Current Medications Acetaminophen (Tylenol) 650 mg PO Q6H PRN PRN PRN Reason: Pain Score 1-3/Temp > 100.7 F Last Admin: 03/26/19 19:37 Dose: 650 mg Documented by: Albuterol Sulfate (Ventolin Aerosols) 2.5 mg INHALATION Q4HWA.RT [facility] Last Admin: 03/28/19 11:00 Dose: Not Given Documented by: Artificial Tears (Tears Naturale, Artificial Tears) 1 drop RIGHT EYE BID [facility] Last Admin: 03/27/19 21:50 Dose: 1 drop Documented by: Atorvastatin Calcium (Lipitor) 40 mg PO QHS [facility] Last Admin: 03/27/19 21:50 Dose: 40 mg Documented by: Citalopram Hydrobromide (Celexa) 40 mg PO QHS [facility] Last Admin: 03/27/19 21:50 Dose: 40 mg Documented by: Cyclopentolate HCl (Cyclogyl) 1 drop LEFT EYE QHS [facility] Last Admin: 03/27/19 21:51 Dose: 1 drop Documented by: Dextrose (D50w Syringe) 0 gm IV X1 PRN; Protocol PRN Reason: Hypoglycemia Enoxaparin Sodium (Lovenox) 30 mg SC DAILY [facility] Ergocalciferol (Vitamin D) 50,000 unit PO Th@1000 [facility] Last Admin: 03/27/19 09:36 Dose: 50,000 unit Documented by: Furosemide (Lasix) 40 mg IV BIDLX [facility] Last Admin: 03/27/19 17:52 Dose: 40 mg Documented by: Gabapentin (Neurontin) 300 mg PO BID [facility] Last Admin: 03/27/19 21:50 Dose: 300 mg Documented by: Glucagon () 1 mg IM .X1 PRN PRN Reason: Hypoglycemia Insulin Glargine (Lantus (Bkc)) 40 units SC DAILY [facility] Last Admin: 03/27/19 09:40 Dose: 40 u Documented by: Insulin Human Lispro (Humalog Kwikpen (Bkc)) 8 unit SC TIDCM [facility] Last Admin: 03/28/19 10:39 Dose: Not Given Documented by: Insulin Human Lispro (Humalog Kwikpen (Bkc)) 0 unit SC TIDAC [facility]; Protocol Last Admin: 03/28/19 09:02 Dose: Not Given Documented by: Melatonin (Melatonin) 3 mg PO QHS PRN PRN PRN Reason: INSOMNIA Montelukast Sodium (Singulair) 10 mg PO QHS [facility] Last Admin: 03/27/19 21:50 Dose: 10 mg Documented by: Non-Formulary Medication ([facility]) [facility] Last Admin: 03/27/19 17:52 Dose: Not Given Documented by: Ondansetron HCl (Zofran) 4 mg IV Q8H PRN PRN PRN Reason: NAUSEA/VOMITING Pantoprazole Sodium (Protonix) 20 mg PO DAILY [facility] Last Admin: 03/27/19 09:28 Dose: 20 mg Documented by: Prednisolone Acetate (Pred Forte Eye Drops (5 Ml)) 2 drop LEFT EYE DAILY [facility] Last Admin: 03/27/19 09:34 Dose: 2 drop Documented by: Prednisone () [facility] Last Admin: 03/27/19 09:27 Dose: 10 mg Documented by: Sodium Chloride () 10 - 40 ml IV UD PRN PRN Reason: SALINE FLUSH Last Admin: 03/27/19 17:54 Dose: 10 ml Documented by: STROKE Vital Signs/Narrative: Vital Signs Temp Pulse Resp BP Pulse Ox 03/28/19 10:35 97.8 F 82 18 104/56 L 96 Medical Necessity - Tobacco Use Smoking Status: Former smoker Tobacco Use: Cigarettes Assessment/Plan All Active Problems Hyponatremia (Acute) Severe sepsis (Acute) Hyperkalemia (Acute) Metabolic acidosis (Acute) Cocaine dependence, episodic (Resolved) Tobacco use disorder (Resolved) 1. Acute exacerbation of HFpEF * BNP is 520, had SOB with LE swelling. * on IV lasix 40mg bid. * urine output since admission is ~ 1.5L * 2D echo(03/2019): EF of 40% with mildly dilated left ventricle and stage II diastolic dysfunction with severe hypokinesis of the lateral wall and posterior wall. Left atrium and right atrium mildly enlarged with atrial septal aneurysm. * Continue IV Lasix. * Monitor intake and output. Fluid restriction to 1500 cc daily. * Cardiology consulted on account of echo findings; per discussion with cardiology, will need cardiac cath down the line when kidney function and anemia have improved. These are however at baseline. * 2. Massive ascites likely due to worsening CKD and acute heart failure * had paracentesis yesterday with removal of 6.8L of fluid. * unable to do SAAG as ascitic fluid albumin is a send out test here; results a re still pending * abdominal distension is better today. * * 3. CKD * Creatinine 2.73 today. Creatinine has ranged between 2-4 since 2014. * it does appear patient is at her baseline. * 4. Hyponatremia: * Sodiuim is 128 today. Is chronic. * Improved from 124 yesterday. Has chronic hyponatremia. * Likely worsened by fluid overload. * 5. Hyperkalemia: Potassium is 5 today. 6. Anemia: * This is chronic. * Hemoglobin is 7.6. Hemoglobin has ranged between 7 and 8 since May 2018. * iron panel showed iron of 31, with TIBC of 228, iron saturation of 13.6 and ferritin of 570, giving an anemia of chronic disease picture 7. Debility due to morbid obesity * PT OT on board. * Fall precautions. * 8. Type 2 diabetes mellitus: * On Lantus 40 units daily and insulin sliding scale. Accu-Cheks AC at bedtime. * 9. Pulmonary fibrosis: On Ofev and on prednisone. Not sure why she is on prednisone. Records requested. DVT prophylaxis: Lovenox Code Visit Inpatient E&M: 38205 Subs Hosp L3
[2019-03-28] MEDS: Pantoprazole Sodium 20 MG Tablet PO (12:38)
[2019-03-28] MEDS: predniSONE 10 MG Tablet PO (12:38)
[2019-03-28] MEDS: Gabapentin 300 MG Capsule PO ×2 (12:39→21:15)
[2019-03-28] MEDS: prednisoLONE eye drops (5 mL) 1 DROP OPTH.BTL 2 DRP LEFT EYE (12:40)
[2019-03-28] MEDS: Insulin Lispro 100 UNIT/ML INSULN.PEN 8 UNIT SC ×2 (12:43→17:06)
[2019-03-28] MEDS: 0.9% Saline Lock 10 ML Syringe IV ×3 (12:44→17:13)
[2019-03-28] MEDS: Furosemide 40 MG/4 ML Vial IV ×2 (12:45→17:11)
[2019-03-28 12:55] LABS: Bedside Glucose 136 mg/dL (70-110)
--- NOTE | 2019-03-28 13:47 | PCM.PN.REN ---
Patient Problems: Active and Suspected Problems Hyponatremia (Acute) Subjective: shortness of breath improving. diuresing well on iv lasix. Creatinine improving. Urine output good. - Physical Exam Vitals/I&O's: Vital Signs Temp Pulse Resp BP Pulse Ox 97.8 F 102 H 18 104/56 L 96 03/28/19 10:35 03/28/19 11:00 03/28/19 10:35 03/28/19 10:35 03/28/19 10:35 Oxygen Flow Rate (L/min) [4] 2.5 Oxygen Flow Rate (L/min) [3] 2.5 Oxygen Flow Rate (L/min) [2] 2.5 Oxygen Flow Rate (L/min) [1 ( 2.5 Initial Baseline)] Oxygen Flow Rate (L/min) 2.5 Oxygen Delivery Method [4] Nasal Cannula Oxygen Delivery Method [3] Room Air Oxygen Delivery Method [2] Nasal Cannula Oxygen Delivery Method [1 ( Nasal Cannula Initial Baseline)] Oxygen Delivery Method Nasal Cannula Weight: 139.6 kg Body Mass Index (BMI) 53.8 Finger Stick Blood Glucose 70 Intake and Output for Last 24 Hours 03/26/19 03/27/19 03/28/19 23:59 23:59 23:59 Intake Total 373 / 373 500 / 500 230 / 230 Output Total 3850 / 3850 2800 / 2800 Balance 373 / -227 -3350 / -3350 -2570 / -2570 General: Alert, Oriented x3, Cooperative Lungs: Clear to auscultation Cardiovascular: Regular rate Abdomen: Bowel Sounds Present, Soft, Non Tender, Distended, Obese Extremities: Edema Skin: No rashes Psych/Mental Status: Normal Affect, Appropriate, Alert and oriented to time, place, person, mood and affect Laboratory Results 03/27/19 13:40: Fluid Glucose 128 H, Fluid Total Protein 4.5 03/27/19 13:40: Fluid Source OTHER, Fluid Color LT YEL, Fluid Appearance SL CLDY, Fluid WBC 0.872, Fluid RBC 14, Fluid Tot Cell Count 0.910 H, Fld Polynuclear WBCs # 0.159, Fld Polynuclear WBCs % 18.2, Fluid Mononuclear WBCs 0.713, Fld Mononuclear WBCs % 81.8, Fluid Neutrophils 67, Fluid Lymphocytes 24, Fluid Monocytes 9, Fl Pathologist Comment May follow, Fluid Comment 2 SEE COMMENT 03/27/19 13:40: Miscellaneous Test Pending 03/27/19 17:48: POC Glucose 131 H 03/27/19 21:53: POC Glucose 160 H 03/28/19 04:42: Sodium 128 L, Potassium 5.0, Chloride 100, Carbon Dioxide 18.0 L, Anion Gap 10, BUN 85 H, Creatinine 2.73 H, Estim Creat Clear Calc 18.49, Est GFR (MDRD) Af Amer 23 L, Est GFR (MDRD) Non-Af 19 L, BUN/Creatinine Ratio 31.1 H, Glucose 127 H, Calcium 8.2 L, Phosphorus 5.2 H, Total Bilirubin 0.20, AST 18, ALT 16, Alkaline Phosphatase 51, Total Protein 5.7 L, Albumin 1.8 L, Globulin 3.9, Albumin/Globulin Ratio 0.5 L 03/28/19 04:42: WBC 11.9 H, RBC 2.65 L, Hgb 7.6 L, Hct 24.9 L, MCV 94.0, MCH 28.7, MCHC 30.5 L, RDW Std Deviation 57.3 H, RDW Coeff of Letitia 16.8 H, Plt Count 459 H, MPV 8.8, Immature Gran % (Auto) 3.100 H, Neut % (Auto) 76.9 H, Lymph % (Auto) 10.1 L, [place] % (Auto) 8.3, Eos % (Auto) 1.3, Baso % (Auto) 0.3, Absolute Neuts (auto) 9.1 H, Absolute Lymphs (auto) 1.20, Nucleated RBC % 0.2 03/28/19 09:00: POC Glucose 127 H 03/28/19 12:19: POC Glucose 136 H Current Medications Acetaminophen (Tylenol) 650 mg PO Q6H PRN PRN PRN Reason: Pain Score 1-3/Temp > 100.7 F Last Admin: 03/26/19 19:37 Dose: 650 mg Documented by: Albuterol Sulfate (Ventolin Aerosols) 2.5 mg INHALATION Q4HWA.RT [facility] Last Admin: 03/28/19 11:00 Dose: Not Given Documented by: Artificial Tears (Tears Naturale, Artificial Tears) 1 drop RIGHT EYE BID [facility] Last Admin: 03/28/19 12:41 Dose: 1 drop Documented by: Atorvastatin Calcium (Lipitor) 40 mg PO QHS [facility] Last Admin: 03/27/19 21:50 Dose: 40 mg Documented by: Citalopram Hydrobromide (Celexa) 40 mg PO QHS [facility] Last Admin: 03/27/19 21:50 Dose: 40 mg Documented by: Cyclopentolate HCl (Cyclogyl) 1 drop LEFT EYE QHS [facility] Last Admin: 03/27/19 21:51 Dose: 1 drop Documented by: Dextrose (D50w Syringe) 0 gm IV X1 PRN; Protocol PRN Reason: Hypoglycemia Enoxaparin Sodium (Lovenox) 30 mg SC DAILY [facility] Ergocalciferol (Vitamin D) 50,000 unit PO Th@1000 [facility] Last Admin: 03/27/19 09:36 Dose: 50,000 unit Documented by: Furosemide (Lasix) 40 mg IV BIDLX [facility] Last Admin: 03/28/19 12:45 Dose: 40 mg Documented by: Gabapentin (Neurontin) 300 mg PO BID [facility] Last Admin: 03/28/19 12:39 Dose: 300 mg Documented by: Glucagon () 1 mg IM .X1 PRN PRN Reason: Hypoglycemia Insulin Glargine (Lantus (Bkc)) 40 units SC DAILY [facility] Last Admin: 03/28/19 12:42 Dose: 40 u Documented by: Insulin Human Lispro (Humalog Kwikpen (Bkc)) 8 unit SC TIDCM [facility] Last Admin: 03/28/19 12:43 Dose: 8 units Documented by: Insulin Human Lispro (Humalog Kwikpen (Bkc)) 0 unit SC TIDAC [facility]; Protocol Last Admin: 03/28/19 12:45 Dose: Not Given Documented by: Melatonin (Melatonin) 3 mg PO QHS PRN PRN PRN Reason: INSOMNIA Montelukast Sodium (Singulair) 10 mg PO QHS [facility] Last Admin: 03/27/19 21:50 Dose: 10 mg Documented by: Non-Formulary Medication ([facility]) [facility] Last Admin: 03/28/19 12:37 Dose: Not Given Documented by: Ondansetron HCl (Zofran) 4 mg IV Q8H PRN PRN PRN Reason: NAUSEA/VOMITING Pantoprazole Sodium (Protonix) 20 mg PO DAILY [facility] Last Admin: 03/28/19 12:38 Dose: 20 mg Documented by: Prednisolone Acetate (Pred Forte Eye Drops (5 Ml)) 2 drop LEFT EYE DAILY [facility] Last Admin: 03/28/19 12:40 Dose: 2 drop Documented by: Prednisone () 10 mg PO DAILYCM [facility] Last Admin: 03/28/19 12:38 Dose: 10 mg Documented by: Sodium Chloride () 10 - 40 ml IV UD PRN PRN Reason: SALINE FLUSH Last Admin: 03/28/19 12:44 Dose: 20 ml Documented by: Medical Necessity - Tobacco Use Smoking Status: Former smoker Tobacco Use: Cigarettes Assessment/Plan All Active Problems Hyponatremia (Acute) Severe sepsis (Acute) Hyperkalemia (Acute) Metabolic acidosis (Acute) Cocaine dependence, episodic (Resolved) Tobacco use disorder (Resolved) 1. Rangel on CKD stage 4. Hx ATN requiring temporary hemodialysis. Baseline creatinine 2.0 now at 2.8. Check 24h urine CRCL, TP. Likely has underlying nephrosclerosis, chronic tubulointerstitial disease. 2. Hyperkalemia stop lisinopril 3. Hyponatremia due to volume expansion. improving on Iv lasix 4. CHF, fluid overload, edema. continue iv lasix, unresponsive or oral therapy 5. DM2 stable 6 HTN stable
[2019-03-28 14:18] LABS: Pathologist Comment/Body Fluid Reviewed
--- NOTE | 2019-03-28 14:19 | CON.PCM_ITS ---
Problem List (1) Abnormal echocardiogram Status: Acute Reason for Consult Date of Consultation: 03/28/19 History of Present Illness: The patient is a 64 year old F [with CKD, pulmonary fibrosis, anemia, hypertension,, history of hyperkalemia, sleep apnea, obesity, diabetes, depression sent to the ER by Dr. Gutierrez as she was found to have significant fluid retention and decreased urine output along with abnormal labs. Patient was diuresed with Lasix and also had paracentesis to remove fluids. A 2D echo was done which revealed decreased EF which is new compared to prior echo and new regional wall motion abnormalities (lateral and posterior wall hypokinesis). Patient denies any chest pain. She does have significant shortness of breath. Review of systems: All systems reviewed. All others negative except that in the HPI. Past Medical History Allergies/Adverse Reactions: Allergies haloperidol [From Haldol] Allergy (Verified 03/26/19 14:23) Rash haloperidol lactate [From Haldol] Allergy (Verified 03/26/19 14:23) Rash Home Medications: Ambulatory Orders Medication Instructions Recorded Citalopram [Celexa] 40 mg PO QHS 02/05/15 Atorvastatin Calcium [Lipitor] 40 mg PO QHS 06/04/18 Cyclopentolate HCl 1 drop LEFT EYE QHS 06/04/18 Gabapentin [Neurontin] 300 mg PO BID 06/04/18 Montelukast [Singulair] 10 mg PO QHS 06/04/18 Nintedanib Esylate [Ofev] 150 mg PO BIDCM 06/04/18 Pantoprazole Sodium [Protonix] 20 mg PO DAILY 06/04/18 Prednisolone Acetate 2 drop LEFT EYE DAILY 06/04/18 Tetrahydrz/Dext 70/Peg 400/Pvp 1 drop RIGHT EYE BID 06/04/18 [Visine Advanced Eye Drop] Albuterol Aerosols [Ventolin 2.5 mg INHALATION Q4HWA.RT 03/26/19 Aerosols] Ergocalciferol (Vitamin D2) 50 mcg PO TH 03/26/19 [Vitamin D2] Furosemide [Lasix] 40 mg PO DAILY 03/26/19 Insulin Glargine [Lantus SoloStar 40 units SUBCUT DAILY 03/26/19 Pen] Insulin Regular, Human [Novolin R] 8 - 20 unit SQ TIDCM 03/26/19 Lisinopril 20 mg PO DAILY 03/26/19 Prednisone 10 mg PO DAILY 03/26/19 Past Medical History (Chronic Problems): Chronic Problems Obstructive sleep apnea (Chronic) Respiratory failure with hypoxia (Chronic) Pulmonary fibrosis (Chronic) Acute kidney injury superimposed on chronic kidney disease (Chronic) Obesity (Chronic) Hypertension (Chronic) Depression (Chronic) Controlled diabetes mellitus type II without complication (Chronic) Surgical History: cholecystectomy, tonsillectomy Psychiatric History: Depression SOCIAL MEDIA MARKETING SPECIALIST History: No pertinent SOCIAL MEDIA MARKETING SPECIALIST history - *Family History Maternal History Items: Diabetes, Heart Disease Paternal History Items: - - from prostate cancer Smoking Status: Former smoker Tobacco Use: Cigarettes Objective: Vital Signs Temp Pulse Resp BP Pulse Ox 97.8 F 102 H 18 104/56 L 96 03/28/19 10:35 03/28/19 11:00 03/28/19 10:35 03/28/19 10:35 03/28/19 10:35 Oxygen Flow Rate (L/min) [4] 2.5 Oxygen Flow Rate (L/min) [3] 2.5 Oxygen Flow Rate (L/min) [2] 2.5 Oxygen Flow Rate (L/min) [1 ( 2.5 Initial Baseline)] Oxygen Flow Rate (L/min) 2.5 Oxygen Delivery Method [4] Nasal Cannula Oxygen Delivery Method [3] Room Air Oxygen Delivery Method [2] Nasal Cannula Oxygen Delivery Method [1 ( Nasal Cannula Initial Baseline)] Oxygen Delivery Method Nasal Cannula Weight: 307 lb 12.245 oz Body Mass Index (BMI) 53.8 Finger Stick Blood Glucose 70 Intake and Output for Last 24 Hours 03/26/19 03/27/19 03/28/19 23:59 23:59 23:59 Intake Total 373 / 373 500 / 500 230 / 230 Output Total 3850 / 3850 2800 / 2800 Balance 373 / -227 -3350 / -3350 -2570 / -2570 General: Awake, Alert, Oriented x 3 HEENT: Atraumatic Oral: Moist Mucosa Neck: Supple Lungs: Rales - Left Base Cardiovascular: Regular Rhythm, Normal S1, Normal S2 Abdomen: Distended Extremities: Bilateral Edema +2 Skin: No Rashes Psych/Mental Status: Appropriate 03/28/19 04:42: Sodium 128 L, Potassium 5.0, Chloride 100, Carbon Dioxide 18.0 L , Anion Gap 10, BUN 85 H, Creatinine 2.73 H, Est GFR (MDRD) Af Amer 23 L, Est GFR (MDRD) Non-Af 19 L, BUN/Creatinine Ratio 31.1 H, Glucose 127 H, Calcium 8.2 L, Phosphorus 5.2 H, Total Bilirubin 0.20 03/28/19 04:42: WBC 11.9 H, RBC 2.65 L, Hgb 7.6 L, Hct 24.9 L, MCV 94.0, MCH 28.7, MCHC 30.5 L, Plt Count 459 H, MPV 8.8, Immature Gran % (Auto) 3.100 H, Neut % (Auto) 76.9 H, Lymph % (Auto) 10.1 L, [place] % (Auto) 8.3, Eos % (Auto) 1.3, Baso % (Auto) 0.3, Absolute Neuts (auto) 9.1 H, Nucleated RBC % 0.2 Rhythm: EKG: ECHO: Stress Test: Cardiac Cath: PCI: CT Surgery: Holter monitor: EPS: PPM: CXR: Chest CT Scan: Assessment/Plan 1. CHF: Agree with continuing IV Lasix at this time. I will add Toprol-XL. No JAMES inhibitor's at this time because of CKD. Patient has history of hyperkalemia recently. She does have regional wall motion abnormalities and would eventually require coronary angiography to look for cause of her regional wall motion abnormalities. Patient has significant chronic anemia and CKD which make coronary angiography and subsequent management in the form of percutaneous coronary intervention, if required, higher risk. Patient came in to the hospital with MARIAN in addition to her CKD. We can proceed with coronary angiography when it is felt that her renal function is more or less close to her baseline. She is still at high risk of contrast-induced nephropathy. Patient has received hemodialysis in the past for a brief time. Thank you very much for the referral. We will continue to follow this patient along with you
--- NOTE | 2019-03-28 14:30 | NURSING ---
Basurto catheter removed at this time. Pt tolerated well. Will monitor for urine output
[2019-03-28 16:29] LABS: Creat.Clear Total Volume 5600 mL; Creatinine Clearance 32 ml/min (100-200); Creatinine Serum Creat 2.7 mg/dL (0.6-1.0); Creatinine Urine 22.4 mg/dL (NO RANGE EST.); EST Glomerular Filtration Rate 19 mL/min (>60); Est Glom Filt Rate - Afr Amer 23 mL/min (>60)
--- NOTE | 2019-03-28 16:35 | CHAPLAIN ---
Type of Pastoral Visit _x__ Initial Visit ___ Follow-up Visit ___ On-call Visit ___ General Patient Visit ___ Spiritual Assessment ___ Family Conference ___ Bereavement ___ Rapid Response ___ Code Blue ___ Other (describe below) Pastoral Care Referral From _x__ Patient ___ Family ___ Nurse ___ Physician ___ Embedded Software Design Engineer ___ Certified Hearing Instrument Dispenser ___ Other (describe below) Sacrament/Intervention _x__ Active listening ___ Anointing ___ Jehovah'S Witness ___ Bereavement ___ Communion _x__ Renetta exploration ___ _x__ Life review _x__ Prayer ___ Reconciliation ___ Sacrament of Sick _x__ Supportive presence ___ Wedding ___ Other (describe below) Pastoral Comments patient is very talkative; pt had been in this hospital last year and wanted this high speed operator to know how much better she has been since then; pt would like prayer concerning decisions and a procedure scheduled for this admission
[2019-03-28 17:26] LABS: Bedside Glucose 122 mg/dL (70-110)
[2019-03-28 19:21] LABS: 24 Hour Urine Protein 593.6 mg/24HR (<150 MG/24HR); Urine Protein (24 Hour) 10.6 mg/dL (<11.9)
[2019-03-28 19:39] LABS: 24HR. UA Prot. Total Volume 5600 mL
[2019-03-28] MEDS: Montelukast 10 MG Tablet PO (21:15)
[2019-03-28] MEDS: Atorvastatin Calcium 40 MG Tablet PO (21:15)
[2019-03-28] MEDS: Citalopram 40 MG TABLET PO (21:15)
[2019-03-28] MEDS: Cyclopentolate 1% 2 ML Bottle 1 DRP LEFT EYE (21:15)
[2019-03-28 21:30] LABS: Bedside Glucose 146 mg/dL (70-110)
[2019-03-29] VITALS (15 sets, daily range): BP systolic 101–119; BP diastolic 66–73; PULSE 74–86; RESP 17–22; TEMP 36.6–37.1; O2SAT 94–98
[2019-03-29 06:16] LABS: Absolute Neutrophil Count 9.1 X10^3/uL (2.0-7.7); Basophil# 0.04 X10^3/uL; Basophil% 0.3 % (0-1); Eosinophils% 0.9 % (0-5); Hematocrit 25.3 % (37-47); Hemoglobin 7.6 g/dL (12.0-15.0); Lymphocyte % 10.3 % (19-41); Mean Corpuscular Hgb 28.9 pg (27.0-32.0); Mean Corpuscular Volume 96.2 fL (81-99); Mean Platelet Vol. 8.8 fl (6.2-12.0); Monocyte# 0.91 X10^3/uL; Monocyte% 7.8 % (0-10); NRBC Flagged by Analyzer 0.2 % (0-5); Neutrophil # 9.05 X10^3/uL (2.7-7.7); Neutrophil % 77.4 % (47-70); Platelet Count 450 K/mm3 (150-450); RBC Distribution Width CV 16.8 % (11.6-14.6); RBC Distribution Width SD 59.1 fl (35.1-43.9); Red Blood Count 2.63 M/mm3 (4.2-5.4); White Blood Count 11.7 K/mm3 (4.4-11.0)
[2019-03-29 06:43] LABS: ALB/GLOB Ratio 0.5 RATIO (0.9-2.4); AST(SGOT) 21 U/L (15-37); Alanine Aminotransfer ALT/SGPT 19 U/L (13-56); Albumin, Serum 1.9 g/dL (3.2-5.0); Alkaline Phosphatase 48 U/L (45-117); Anion Gap 7 (5-15); BUN 82 mg/dL (7-18); BUN/Creat Ratio 32.2 RATIO (10-20); Calcium,Total 8.5 mg/dL (8.5-10.1); Chloride 101 mmol/L (98-107); Creatinine, Serum 2.55 mg/dL (0.55-1.02); EST Glomerular Filtration Rate 20 mL/min (>60); Est Glom Filt Rate - Afr Amer 24 mL/min (>60); Estimated Creatinine Clearance 19.79 ml/min; Globulin 3.7 g/dL (2.2-4.2); Glucose 110 mg/dL (74-106); Phosphorus 4.6 mg/dL (2.5-4.9); Potassium 4.8 mmol/L (3.5-5.1); Protein, Total 5.6 g/dL (6.4-8.2); Sodium Level 132 mmol/L (136-145)
[2019-03-29] MEDS: Albuterol 2.5 MG/3 ML VIAL.NEB. INHALATION ×4 (07:34→18:51)
[2019-03-29] MEDS: predniSONE 10 MG Tablet PO (08:21)
[2019-03-29] MEDS: Gabapentin 300 MG Capsule PO ×2 (08:23→21:36)
[2019-03-29] MEDS: Pantoprazole Sodium 20 MG Tablet PO (08:23)
[2019-03-29] MEDS: Metoprolol(XL)Succ 25 MG Tablet PO (08:24)
[2019-03-29] MEDS: Insulin Lispro 100 UNIT/ML INSULN.PEN 8 UNIT SC ×3 (08:28→17:37)
[2019-03-29] MEDS: Furosemide 40 MG/4 ML Vial IV ×2 (08:29→17:41)
[2019-03-29] MEDS: prednisoLONE eye drops (5 mL) 1 DROP OPTH.BTL 2 DRP LEFT EYE (08:29)
[2019-03-29] MEDS: 0.9% Saline Lock 10 ML Syringe IV ×2 (08:32→17:42)
[2019-03-29 08:46] LABS: Bedside Glucose 105 mg/dL (70-110)
--- NOTE | 2019-03-29 09:14 | PCM.PN.BLA ---
Progress Note Pt continues to diurese well on iv lasix. Creatinine continues to improve with baseline creatinine 1.8. hyponatremia improving with diuresis VSS AF 24h urine CRCL 32cc/min with 592mg total protein MARIAN with fluid overload likely due to pulmonary hypertension, cardiomyopathy Underlying CKD from diabetes, hypertension STROKE Vital Signs/Narrative: Vital Signs Pulse Resp Pulse Ox 03/29/19 08:24 76 03/29/19 07:35 75 18 96 03/29/19 06:52 80
--- NOTE | 2019-03-29 12:27 | PCM.PN.HOSP ---
Patient Problems: Active and Suspected Problems Abnormal echocardiogram (Acute) Hyponatremia (Acute) Subjective: Patient seen and examined. She feels very well today and had no complaints. Review of systems otherwise negative. Labs and vitals reviewed. She remains hemodynamically stable. She is on 2.5 L of oxygen by nasal cannula. Sodium is 132 and creatinine is 2.55 today. She has a baseline creatinine of around 1.8. Hemoglobin is 7.6. Urine output was 3.4 L over last 24 hours. She is in negative balance by 5.57 L since admission and weight has gone down by about 23 pounds. Vitals/I&O's: Vital Signs Temp Pulse Resp BP Pulse Ox 98.7 F 85 22 H 119/72 98 03/29/19 10:35 03/29/19 11:00 03/29/19 10:40 03/29/19 10:35 03/29/19 10:35 Oxygen Flow Rate (L/min) [4] 2.5 Oxygen Flow Rate (L/min) [3] 2.5 Oxygen Flow Rate (L/min) [2] 2.5 Oxygen Flow Rate (L/min) [1 ( 2.5 Initial Baseline)] Oxygen Flow Rate (L/min) 2.5 Oxygen Delivery Method [4] Nasal Cannula Oxygen Delivery Method [3] Room Air Oxygen Delivery Method [2] Nasal Cannula Oxygen Delivery Method [1 ( Nasal Cannula Initial Baseline)] Oxygen Delivery Method Nasal Cannula Weight: 300 lb 11.368 oz Body Mass Index (BMI) 53.8 Finger Stick Blood Glucose 70 Intake and Output for Last 24 Hours 03/27/19 03/28/19 03/29/19 23:59 23:59 23:59 Intake Total 500 / 500 550 / 550 300 / 300 Output Total 3850 / 3850 3450 / 3450 Balance -3350 / -3350 -2900 / -2900 300 / 300 General: Alert, Oriented x3, Cooperative, - - super morbid obesity HEENT: Atraumatic, PERRLA, EOMI, Normocephalic Oral: Dry Mucosa Neck: Supple, No JVD, Negative Carotid Bruits Lungs: Clear to auscultation, Normal air movement, No rhonchi, No wheeze,decreased breath sounds bibasally; no wheezes or crackles, - - on 2.5L of oxygen by nasal canula Cardiovascular: Regular rate, Regular Rhythm, Normal S1, Normal S2, No murmurs Abdomen: Bowel Sounds Present, Soft, Non-Distended, No Hepato-splenomegaly, - - abdominal distension has improved since paracentesis Extremities: No clubbing, No cyanosis, Capillary Refill Less than 3 Seconds, - - 1+ bipedal pitting edema Skin: No rashes, No breakdown Musculoskeletal: No Tenderness to Palpation of Joints or Extremities, No Muscle Wasting Lymphatic: No Cervical, Supraclavicular, or Inguinal Adenopathy Neurological: Cranial nerves II-XII grossly intact, Neuro grossly intact, Motor Exam 5/5 strength throughout Psych/Mental Status: Normal Affect, Appropriate, Alert and oriented to time, place, person, mood and affect Laboratory Results 03/27/19 13:40: Fl Pathologist Comment Reviewed 03/28/19 12:19: POC Glucose 136 H 03/28/19 14:20: Urine Collection Time 24.0, Timed Urine Volume 5600, Ur Total Protein 24 Hr 593.6 H, Urine Total Protein 10.6 03/28/19 14:20: Creatinine 2.7 H, Est GFR (MDRD) Af Amer 23 L, Est GFR (MDRD) Non-Af 19 L, Urine Collection Time 24.0, Timed Urine Volume 5600, Urine Creatinine 22.4, Creatinine Clearance 32 L 03/28/19 17:03: POC Glucose 122 H 03/28/19 21:23: POC Glucose 146 H 03/29/19 05:46: Sodium 132 L, Potassium 4.8, Chloride 101, Carbon Dioxide 24.0, Anion Gap 7, BUN 82 H, Creatinine 2.55 H, Estim Creat Clear Calc 19.79, Est GFR (MDRD) Af Amer 24 L, Est GFR (MDRD) Non-Af 20 L, BUN/Creatinine Ratio 32.2 H, Glucose 110 H, Calcium 8.5, Phosphorus 4.6, Total Bilirubin 0.40, AST 21, ALT 19, Alkaline Phosphatase 48, Total Protein 5.6 L, Albumin 1.9 L, Globulin 3.7, Albumin/Globulin Ratio 0.5 L 03/29/19 05:46: WBC 11.7 H, RBC 2.63 L, Hgb 7.6 L, Hct 25.3 L, MCV 96.2, MCH 28.9, MCHC 30.0 L, RDW Std Deviation 59.1 H, RDW Coeff of Letitia 16.8 H, Plt Count 450, MPV 8.8, Immature Gran % (Auto) 3.300 H, Neut % (Auto) 77.4 H, Lymph % (Auto) 10.3 L, [place] % (Auto) 7.8, Eos % (Auto) 0.9, Baso % (Auto) 0.3, Absolute Neuts (auto) 9.1 H, Absolute Lymphs (auto) 1.20, Nucleated RBC % 0.2 03/29/19 08:18: POC Glucose 105 Diagnostic Data Chest X-Ray 03/26/19 15:00 IMPRESSION: Mild degree of vascular congestion and CHF. Electronically Signed: Eleazar Owens, at 15:26 EST , Service support , Paracentesis Ultrasound 03/27/19 16:49 IMPRESSION: Ultrasound guided paracentesis. Electronically Signed: Eleazar Owens, at 14:53 EST , Service support , Current Medications Acetaminophen (Tylenol) 650 mg PO Q6H PRN PRN PRN Reason: Pain Score 1-3/Temp > 100.7 F Last Admin: 03/26/19 19:37 Dose: 650 mg Documented by: Albuterol Sulfate (Ventolin Aerosols) 2.5 mg INHALATION Q4HWA.RT [facility] Last Admin: 03/29/19 10:40 Dose: 2.5 mg Documented by: Artificial Tears (Tears Naturale, Artificial Tears) 1 drop RIGHT EYE BID [facility] Last Admin: 03/29/19 08:30 Dose: 1 drop Documented by: Atorvastatin Calcium (Lipitor) 40 mg PO QHS [facility] Last Admin: 03/28/19 21:15 Dose: 40 mg Documented by: Citalopram Hydrobromide (Celexa) 40 mg PO QHS [facility] Last Admin: 03/28/19 21:15 Dose: 40 mg Documented by: Cyclopentolate HCl (Cyclogyl) 1 drop LEFT EYE QHS [facility] Last Admin: 03/28/19 21:15 Dose: 1 drop Documented by: Dextrose (D50w Syringe) 0 gm IV X1 PRN; Protocol PRN Reason: Hypoglycemia Enoxaparin Sodium (Lovenox) 30 mg SC DAILY [facility] Ergocalciferol (Vitamin D) 50,000 unit PO Th@1000 [facility] Last Admin: 03/27/19 09:36 Dose: 50,000 unit Documented by: Furosemide (Lasix) 40 mg IV BIDLX [facility] Last Admin: 03/29/19 08:29 Dose: 40 mg Documented by: Gabapentin (Neurontin) 300 mg PO BID [facility] Last Admin: 03/29/19 08:23 Dose: 300 mg Documented by: Glucagon () 1 mg IM .X1 PRN PRN Reason: Hypoglycemia Insulin Glargine (Lantus (Bkc)) 40 units SC DAILY [facility] Last Admin: 03/29/19 08:29 Dose: 40 u Documented by: Insulin Human Lispro (Humalog Kwikpen (Bkc)) 8 unit SC TIDCM [facility] Last Admin: 03/29/19 08:28 Dose: 8 units Documented by: Insulin Human Lispro (Humalog Kwikpen (Bkc)) 0 unit SC TIDAC [facility]; Protocol Last Admin: 03/29/19 08:19 Dose: Not Given Documented by: Melatonin (Melatonin) 3 mg PO QHS PRN PRN PRN Reason: INSOMNIA Metoprolol Succinate (Toprol Xl (Beta Lesli)) 25 mg PO DAILY [facility] Last Admin: 03/29/19 08:24 Dose: 25 mg Documented by: Montelukast Sodium (Singulair) 10 mg PO QHS [facility] Last Admin: 03/28/19 21:15 Dose: 10 mg Documented by: Non-Formulary Medication (Nintedanib Esylate) 150 mg PO BIDCM [facility] Last Admin: 03/29/19 08:22 Dose: 150 mg Documented by: Ondansetron HCl (Zofran) 4 mg IV Q8H PRN PRN PRN Reason: NAUSEA/VOMITING Pantoprazole Sodium (Protonix) 20 mg PO DAILY [facility] Last Admin: 03/29/19 08:23 Dose: 20 mg Documented by: Prednisolone Acetate (Pred Forte Eye Drops (5 Ml)) 2 drop LEFT EYE DAILY [facility] Last Admin: 03/29/19 08:29 Dose: 2 drop Documented [facility]: [facility] () [facility] Last Admin: 03/29/19 08:21 Dose: 10 mg Documented by: Sodium Chloride () 10 - 40 ml IV UD PRN PRN Reason: SALINE FLUSH Last Admin: 03/29/19 08:32 Dose: 10 ml Documented by: STROKE Vital Signs/Narrative: Vital Signs Temp Pulse Resp BP Pulse Ox 03/29/19 11:00 85 03/29/19 10:40 86 22 H 03/29/19 10:35 98.7 F 82 20 H 119/72 98 Medical Necessity - Tobacco Use Smoking Status: Former smoker Tobacco Use: Cigarettes Assessment/Plan All Active Problems Abnormal echocardiogram (Acute) Hyponatremia (Acute) Severe sepsis (Acute) Hyperkalemia (Acute) Metabolic acidosis (Acute) Cocaine dependence, episodic (Resolved) Tobacco use disorder (Resolved) 1. Acute exacerbation of HFpEF BNP is 520, had SOB with LE swelling. on IV lasix 40mg bid. urine output 3.45L over last 24 hours 2D echo(03/2019): EF of 40% with mildly dilated left ventricle and stage II diastolic dysfunction with severe hypokinesis of the lateral wall and posterior wall. Left atrium and right atrium mildly enlarged with atrial septal aneurysm. Continue IV Lasix. Monitor intake and output. Fluid restriction to 1500 cc daily. Cardiology consulted on account of echo findings; per discussion with cardiology, to have cardiac cath down the line when kidney function and anemia have improved. 2. Massive ascites likely due to worsening CKD and acute heart failure had paracentesis with removal of 6.8L of fluid. unable to do SAAG as ascitic fluid albumin is a send out test here; results are still pending abdominal distension is better today. 3. CKD Creatinine 2.5 today. Creatinine has ranged between 2-4 since 2014. per nephrology, her baseline CR is ~ 1.8, though Cr has hovered between 2-3 since 2015. nephrology on board 4. Hyponatremia: Sodiuim is 132 today. Is chronic. has chronic hyponatremia, and this was likely worsened by hypervolemia from ascites and heart failure.; Likely worsened by fluid overload. 5. Anemia: This is chronic. Hemoglobin is 7.6. Hemoglobin has ranged between 7 and 8 since May 2018. iron panel showed iron of 31, with TIBC of 228, iron saturation of 13.6 and ferritin of 570, giving an anemia of chronic disease picture patient may need transfusion before cardiac cath to shore her up a bit 6. Debility due to morbid obesity PT OT on board. Fall precautions. 8. Type 2 diabetes mellitus: On Lantus 40 units daily and insulin sliding scale. Accu-Cheks AC at bedtime. 9. Pulmonary fibrosis: On Ofev and on prednisone. DVT prophylaxis: Lovenox Code Visit Inpatient E&M: 05490 Subs Hosp L3
[2019-03-29 12:46] LABS: Bedside Glucose 174 mg/dL (70-110)
[2019-03-29] MEDS: Insulin Lispro 100 UNIT/ML INSULN.PEN SC ×2 (12:47→17:37)
--- NOTE | 2019-03-29 13:03 | PN.CARD_ITS ---
Subjectve: The patient is awake and alert. She believes she is breathing somewhat better. She states she has lost weight-fluid weight. However she believes she is still at least 30 pounds heavier than she should be. Objective: Vital Signs Temp Pulse Resp BP Pulse Ox 98.7 F 85 22 H 119/72 98 03/29/19 10:35 03/29/19 11:00 03/29/19 10:40 03/29/19 10:35 03/29/19 10:35 Oxygen Flow Rate (L/min) [4] 2.5 Oxygen Flow Rate (L/min) [3] 2.5 Oxygen Flow Rate (L/min) [2] 2.5 Oxygen Flow Rate (L/min) [1 ( 2.5 Initial Baseline)] Oxygen Flow Rate (L/min) 2.5 Oxygen Delivery Method [4] Nasal Cannula Oxygen Delivery Method [3] Room Air Oxygen Delivery Method [2] Nasal Cannula Oxygen Delivery Method [1 ( Nasal Cannula Initial Baseline)] Oxygen Delivery Method Nasal Cannula Weight: 300 lb 11.368 oz Body Mass Index (BMI) 53.8 Finger Stick Blood Glucose 70 Intake and Output for Last 24 Hours 03/27/19 03/28/19 03/29/19 23:59 23:59 23:59 Intake Total 500 / 500 550 / 550 300 / 300 Output Total 3850 / 3850 3450 / 3450 Balance -3350 / -3350 -2900 / -2900 300 / 300 General: Awake, Alert, Oriented x 3, Cooperative, No Acute Distress, Obese HEENT: Atraumatic, Normocephalic, PERRL, EOMI, Sclera Non Icteric Oral: Moist Mucosa Neck: Supple, Good ROM Lungs: Diminished Jonas Bases Cardiovascular: Regular Rhythm, Normal S1, Normal S2 Abdomen: Bowel Sounds Present, Soft, Non Tender Extremities: - - Bilateral lower extremities: Bilateral Luiz wraps Psych/Mental Status: Appropriate 03/28/19 14:20: Creatinine 2.7 H, Est GFR (MDRD) Af Amer 23 L, Est GFR (MDRD) Non-Af 19 L 03/29/19 05:46: Sodium 132 L, Potassium 4.8, Chloride 101, Carbon Dioxide 24.0, Anion Gap 7, BUN 82 H, Creatinine 2.55 H, Est GFR (MDRD) Af Amer 24 L, Est GFR (MDRD) Non-Af 20 L, BUN/Creatinine Ratio 32.2 H, Glucose 110 H, Calcium 8.5, Phosphorus 4.6, Total Bilirubin 0.40 03/29/19 05:46: WBC 11.7 H, RBC 2.63 L, Hgb 7.6 L, Hct 25.3 L, MCV 96.2, MCH 28.9, MCHC 30.0 L, Plt Count 450, MPV 8.8, Immature Gran % (Auto) 3.300 H, Neut % (Auto) 77.4 H, Lymph % (Auto) 10.3 L, [place] % (Auto) 7.8, Eos % (Auto) 0.9, Baso % (Auto) 0.3, Absolute Neuts (auto) 9.1 H, Nucleated RBC % 0.2 Rhythm: Sinus rhythm Medical Necessity - Tobacco Use Smoking Status: Former smoker Tobacco Use: Cigarettes Assessment/Plan 1. Congestive heart failure At the present time she will continue to be monitored. She will continue medical adjustment. Based upon her echocardiographic findings she has been reported as having left ventricular regional wall motion abnormalities and diminished LVEF. She is being considered for future evaluation with diagnostic cardiac catheterization pending stabilization of her anemia and her renal function. 2. Hypertension She will continue medical management. 3. Diabetes mellitus She will continue evaluation care per internal medicine. 4. Chronic renal insufficiency She is being followed by nephrology. Nephrology input is most appreciated especially if she is to proceed with future evaluation in the cardiac catheterization laboratory to minimize the risk of IV contrast related nephropathy. 5. Anemia She remains anemic. It is unclear whether this is all related to her chronic renal sufficiency or there are other etiologies. Prior to proceeding to cardiac catheterization she may need PRBCs in an attempt to improve her oxygen carrying capacity, provide her additional reserve in the cardiac catheterization laboratory, etc. Comment: The patient's case has been discussed and reviewed with the patient and Dr. Feng. This note was generated using a voice recognition system and there may be incorrect words, spelling or punctuation that were not noted when reviewing the office note prior to saving.
[2019-03-29 17:51] LABS: Bedside Glucose 164 mg/dL (70-110)
[2019-03-29] MEDS: Acetaminophen 325 MG Tablet 650 MG PO (20:16)
[2019-03-29] MEDS: Atorvastatin Calcium 40 MG Tablet PO (21:36)
[2019-03-29] MEDS: Montelukast 10 MG Tablet PO (21:36)
[2019-03-29] MEDS: Citalopram 40 MG TABLET PO (21:36)
[2019-03-29] MEDS: Cyclopentolate 1% 2 ML Bottle 1 DRP LEFT EYE (21:36)
[2019-03-29] MEDS: MELATONIN 3 MG TABLET PO (21:44)
[2019-03-29 21:50] LABS: Bedside Glucose 161 mg/dL (70-110)
[2019-03-30] VITALS (17 sets, daily range): BP systolic 111–148; BP diastolic 60–67; PULSE 66–87; RESP 16–20; TEMP 36.3–36.8; O2SAT 93–97
[2019-03-30 05:42] LABS: Absolute Lymphocyte Count 1.61 X10^3/uL (0.83-4.51); Absolute Neutrophil Count 8.5 X10^3/uL (2.0-7.7); Basophil# 0.04 X10^3/uL; Basophil% 0.3 % (0-1); Eosinophil# 0.16 X10^3/uL; Eosinophils% 1.4 % (0-5); Hemoglobin 7.1 g/dL (12.0-15.0); Lymphocyte # 1.61 X10^3/ul (4.0); Lymphocyte % 13.9 % (19-41); Mean Corp Hgb Conc 29.6 g/dL (32-36); Mean Corpuscular Hgb 28.5 pg (27.0-32.0); Mean Corpuscular Volume 96.4 fL (81-99); Mean Platelet Vol. 8.7 fl (6.2-12.0); Monocyte# 1.03 X10^3/uL; Monocyte% 8.9 % (0-10); NRBC Flagged by Analyzer 0 % (0-5); Neutrophil # 8.46 X10^3/uL (2.7-7.7); Neutrophil % 72.9 % (47-70); Platelet Count 412 K/mm3 (150-450); RBC Distribution Width CV 16.8 % (11.6-14.6); RBC Distribution Width SD 59.7 fl (35.1-43.9); Red Blood Count 2.49 M/mm3 (4.2-5.4); White Blood Count 11.6 K/mm3 (4.4-11.0)
[2019-03-30 06:06] LABS: ALB/GLOB Ratio 0.5 RATIO (0.9-2.4); AST(SGOT) 21 U/L (15-37); Alanine Aminotransfer ALT/SGPT 20 U/L (13-56); Albumin, Serum 1.9 g/dL (3.2-5.0); Alkaline Phosphatase 46 U/L (45-117); Anion Gap 7 (5-15); BUN 80 mg/dL (7-18); BUN/Creat Ratio 32.3 RATIO (10-20); Calcium,Total 8.6 mg/dL (8.5-10.1); Chloride 102 mmol/L (98-107); Creatinine, Serum 2.48 mg/dL (0.55-1.02); EST Glomerular Filtration Rate 21 mL/min (>60); Est Glom Filt Rate - Afr Amer 25 mL/min (>60); Estimated Creatinine Clearance 20.35 ml/min; Globulin 3.8 g/dL (2.2-4.2); Glucose 95 mg/dL (74-106); Phosphorus 4.9 mg/dL (2.5-4.9); Potassium 4.6 mmol/L (3.5-5.1); Protein, Total 5.7 g/dL (6.4-8.2); Sodium Level 133 mmol/L (136-145)
[2019-03-30] MEDS: Albuterol 2.5 MG/3 ML VIAL.NEB. INHALATION (07:38)
[2019-03-30] MEDS: Insulin Lispro 100 UNIT/ML INSULN.PEN 8 UNIT SC ×3 (08:54→17:12)
[2019-03-30] MEDS: prednisoLONE eye drops (5 mL) 1 DROP OPTH.BTL 2 DRP LEFT EYE (08:55)
[2019-03-30] MEDS: Gabapentin 300 MG Capsule PO ×2 (08:55→21:17)
[2019-03-30] MEDS: 0.9% Saline Lock 10 ML Syringe IV ×3 (08:55→17:12)
[2019-03-30] MEDS: Furosemide 40 MG/4 ML Vial IV ×2 (08:55→17:12)
[2019-03-30] MEDS: Pantoprazole Sodium 20 MG Tablet PO (08:56)
[2019-03-30] MEDS: predniSONE 10 MG Tablet PO (08:56)
[2019-03-30] MEDS: Metoprolol(XL)Succ 25 MG Tablet PO (08:57)
[2019-03-30 09:06] LABS: Bedside Glucose 110 mg/dL (70-110)
[2019-03-30] MEDS: Ipratropium/Albuterol Sulfate 3 ML AMPUL.NEB INHALATION ×2 (10:40→18:45)
[2019-03-30 12:06] LABS: Bedside Glucose 141 mg/dL (70-110)
--- NOTE | 2019-03-30 12:46 | PN_ITS ---
Patient Problems: Active and Suspected Problems Abnormal echocardiogram (Acute) Subjective: Patient seen and examined. She had no complaints today. Shortness of breath was at baseline she does not think her abdomen is getting any bigger. She denies any nausea vomiting or abdominal pain. Review of symptoms otherwise negative. Labs and vitals reviewed. Hemoglobin noted to have dropped to 7.1 today. She denies any coffee-ground emesis or dark stools. Vitals/I&O's: Vital Signs Temp Pulse Resp BP Pulse Ox 97.6 F L 71 18 112/63 93 03/30/19 11:54 03/30/19 11:54 03/30/19 11:54 03/30/19 11:54 03/30/19 11:54 Oxygen Flow Rate (L/min) [4] 2.5 Oxygen Flow Rate (L/min) [3] 2.5 Oxygen Flow Rate (L/min) [2] 2.5 Oxygen Flow Rate (L/min) [1 ( 2.5 Initial Baseline)] Oxygen Flow Rate (L/min) 2.5 Oxygen Delivery Method [4] Nasal Cannula Oxygen Delivery Method [3] Room Air Oxygen Delivery Method [2] Nasal Cannula Oxygen Delivery Method [1 ( Nasal Cannula Initial Baseline)] Oxygen Delivery Method Nasal Cannula Weight: 295 lb 10.238 oz Body Mass Index (BMI) 53.8 Finger Stick Blood Glucose 70 Intake and Output for Last 24 Hours 03/28/19 03/29/19 03/30/19 23:59 23:59 23:59 Intake Total 550 / 550 790 / 790 370 / 370 Output Total 3450 / 3450 100 / 100 Balance -2900 / -2900 790 / 790 270 / 270 General: Alert, Oriented x3, Cooperative, - - super morbid obesity HEENT: Atraumatic, PERRLA, EOMI, Normocephalic Oral: Dry Mucosa Neck: Supple, No JVD, Negative Carotid Bruits Lungs: Clear to auscultation, Normal air movement, No rhonchi, No wheeze,decreased breath sounds bibasally; no wheezes or crackles, - - on 2.5L of oxygen by nasal canula Cardiovascular: Regular rate, Regular Rhythm, Normal S1, Normal S2, No murmurs Abdomen: Bowel Sounds Present, Soft, Non-Distended, No Hepato-splenomegaly, - - abdominal distension has improved Extremities: No clubbing, No cyanosis, Capillary Refill Less than 3 Seconds, - - 1+ bipedal pitting edema Skin: No rashes, No breakdown Musculoskeletal: No Tenderness to Palpation of Joints or Extremities, No Muscle Wasting Lymphatic: No Cervical, Supraclavicular, or Inguinal Adenopathy Neurological: Cranial nerves II-XII grossly intact, Neuro grossly intact, Motor Exam 5/5 strength throughout Psych/Mental Status: Normal Affect, Appropriate, Alert and oriented to time, place, person, mood and affect Laboratory Results 03/29/19 12:39: POC Glucose 174 H 03/29/19 17:25: POC Glucose 164 H 03/29/19 21:39: POC Glucose 161 H 03/30/19 05:05: Sodium 133 L, Potassium 4.6, Chloride 102, Carbon Dioxide 24.0, Anion Gap 7, BUN 80 H, Creatinine 2.48 H, Estim Creat Clear Calc 20.35, Est GFR (MDRD) Af Amer 25 L, Est GFR (MDRD) Non-Af 21 L, BUN/Creatinine Ratio 32.3 H, Glucose 95, Calcium 8.6, Phosphorus 4.9, Total Bilirubin 0.30, AST 21, ALT 20, Alkaline Phosphatase 46, Total Protein 5.7 L, Albumin 1.9 L, Globulin 3.8, Albumin/Globulin Ratio 0.5 L 03/30/19 05:05: WBC 11.6 H, RBC 2.49 L, Hgb 7.1 L, Hct 24.0 L, MCV 96.4, MCH 28.5, MCHC 29.6 L, RDW Std Deviation 59.7 H, RDW Coeff of Letitia 16.8 H, Plt Count 412, MPV 8.7, Immature Gran % (Auto) 2.600 H, Neut % (Auto) 72.9 H, Lymph % (Auto) 13.9 L, [place] % (Auto) 8.9, Eos % (Auto) 1.4, Baso % (Auto) 0.3, Absolute Neuts (auto) 8.5 H, Absolute Lymphs (auto) 1.61, Nucleated RBC % 0 03/30/19 08:51: POC Glucose 110 03/30/19 09:10: Blood Type A POSITIVE, Antibody Screen NEGATIVE, Crossmatch See Detail 03/30/19 11:42: POC Glucose 141 H Diagnostic Data Chest X-Ray 03/26/19 15:00 IMPRESSION: Mild degree of vascular congestion and CHF. Electronically Signed: Eleazar Santoskylah, at 15:26 EST , Service support , Paracentesis Ultrasound 03/27/19 16:49 IMPRESSION: Ultrasound guided paracentesis. Electronically Signed: Eleazar Roman, at 14:53 EST , Service support , Current Medications Acetaminophen (Tylenol) 650 mg PO Q6H PRN PRN PRN Reason: Pain Score 1-3/Temp > 100.7 F Last Admin: 03/29/19 20:16 Dose: 650 mg Documented by: Albuterol/Ipratropium (Duoneb) 3 ml INHALATION Q4HWA.RT [facility] Last Admin: 03/30/19 10:40 Dose: 3 ml Documented by: Artificial Tears (Tears Naturale, Artificial Tears) 1 drop RIGHT EYE BID [facility] Last Admin: 03/30/19 08:55 Dose: 1 drop Documented by: Atorvastatin Calcium (Lipitor) 40 mg PO QHS [facility] Last Admin: 03/29/19 21:36 Dose: 40 mg Documented by: Citalopram Hydrobromide (Celexa) 40 mg PO QHS [facility] Last Admin: 03/29/19 21:36 Dose: 40 mg Documented by: Cyclopentolate HCl (Cyclogyl) 1 drop LEFT EYE QHS [facility] Last Admin: 03/29/19 21:36 Dose: 1 drop Documented by: Dextrose (D50w Syringe) 0 gm IV X1 PRN; Protocol PRN Reason: Hypoglycemia Enoxaparin Sodium (Lovenox) 30 mg SC DAILY [facility] Last Admin: 03/29/19 22:16 Dose: Not Given Documented by: Ergocalciferol (Vitamin D) 50,000 unit PO Th@1000 [facility] Last Admin: 03/27/19 09:36 Dose: 50,000 unit Documented by: Furosemide (Lasix) 40 mg IV BIDLX [facility] Last Admin: 03/30/19 08:55 Dose: 40 mg Documented by: Gabapentin (Neurontin) 300 mg PO BID [facility] Last Admin: 03/30/19 08:55 Dose: 300 mg Documented by: Glucagon () 1 mg IM .X1 PRN PRN Reason: Hypoglycemia Insulin Glargine (Lantus (Bkc)) 40 units SC DAILY [facility] Last Admin: 03/30/19 08:56 Dose: 40 u Documented by: Insulin Human Lispro (Humalog Kwikpen (Bk)) 8 unit SC TIDCM [facility] Last Admin: 03/30/19 11:45 Dose: 8 units Documented by: Insulin Human Lispro (Humalog Kwikpen (Bkc)) 0 unit SC TIDAC [facility]; Protocol Last Admin: 03/30/19 11:45 Dose: Not Given Documented by: Melatonin (Melatonin) 3 mg PO QHS PRN PRN PRN Reason: INSOMNIA Last Admin: 03/29/19 21:44 Dose: 3 mg Documented by: Metoprolol Succinate (Toprol Xl (Beta Lesli)) 25 mg PO DAILY [facility] Last Admin: 03/30/19 08:57 Dose: 25 mg Documented by: Montelukast Sodium (Singulair) 10 mg PO QHS [facility] Last Admin: 03/29/19 21:36 Dose: 10 mg Documented by: Non-Formulary Medication ([facility]) [facility] Last Admin: 03/30/19 08:55 Dose: 150 mg Documented by: Ondansetron HCl (Zofran) 4 mg IV Q8H PRN PRN PRN Reason: NAUSEA/VOMITING Pantoprazole Sodium (Protonix) 20 mg PO DAILY [facility] Last Admin: 03/30/19 08:56 Dose: 20 mg Documented by: Prednisolone Acetate (Pred Forte Eye Drops (5 Ml)) 2 drop LEFT EYE DAILY [facility] Last Admin: 03/30/19 08:55 Dose: 2 drop Documented by: [facility] () [facility] Last Admin: 03/30/19 08:56 Dose: 10 mg Documented by: Sodium Chloride () 10 - 40 ml IV UD PRN PRN Reason: SALINE FLUSH Last Admin: 03/30/19 11:54 Dose: 10 ml Documented by: STROKE Vital Signs/Narrative: Vital Signs Temp Pulse Resp BP Pulse Ox 03/30/19 11:54 97.6 F L 71 18 112/63 93 03/30/19 11:40 97.4 F L 72 16 112/64 93 03/30/19 10:40 77 18 03/30/19 09:50 97.5 F L 76 20 H 130/65 H 96 03/30/19 08:57 69 Medical Necessity - Tobacco Use Smoking Status: Former smoker Tobacco Use: Cigarettes Assessment/Plan All Active Problems Abnormal echocardiogram (Acute) Hyponatremia (Acute) Severe sepsis (Acute) Hyperkalemia (Acute) Metabolic acidosis (Acute) Cocaine dependence, episodic (Resolved) Tobacco use disorder (Resolved) 1. Acute exacerbation of HFpEF * on IV lasix 40mg bid. * urine output 3.45L over last 24 hours * 2D echo(03/2019): EF of 40% with mildly dilated left ventricle and stage II diastolic dysfunction with severe hypokinesis of the lateral wall and posterior wall. Left atrium and right atrium mildly enlarged with atrial septal aneurysm. * Monitor intake and output. Fluid restriction to 1500 cc daily. * Cardiology consulted on account of echo findings; per discussion with cardiology, to have cardiac cath down the line when kidney function and anemia have improved. * in cumulative negative balance by 4.8L since admission. * discussed possibility of cardiac cath with nephrology in light of kidney function; per nephro, patient will need ~ 2-3 more days to optimise her kidney function before cardiac cath can be considered * 2. Massive ascites likely due to worsening CKD and acute heart failure * had paracentesis with removal of 6.8L of fluid. * unable to do SAAG as ascitic fluid albumin is a send out test here; results are still pending * abdomen still distended, though it is much better. * * 3. ? Rangel on CKD * Creatinine 2.48 today. Creatinine has ranged between 2-4 since 2015. * per nephrology, her baseline CR is ~ 1.8, though Cr has hovered between 2-3 since 2015. * nephrology on board * as above, once kidney is back to baseline, patient will benefit from cardiac cath on account of echo showing severe hypokinesis of lateral wall and posterior wall. She is at risk of contrast nephropathy. * 4. Hyponatremia: * Sodiuim is 133 today. Is chronic. * has chronic hyponatremia, and this was likely worsened by hypervolemia from ascites and heart failure.; * Likely worsened by fluid overload. 5. Acute on chronic anemia * Hemoglobin today is 7.1. This is likely the cause of patient's mild shortness of breath this morning. Will transfuse 1 unit of packed red blood cells today * Hemoglobin has ranged between 7 and 8 since May 2018. * iron panel showed iron of 31, with TIBC of 228, iron saturation of 13.6 and ferritin of 570, giving an anemia of chronic disease picture * Since she is likely going to have a cardiac cath, anemia will have to be evaluated by general surgery before she has cath. * Dr Linda consulted, she will plan for EGD and colonoscopy on Sunday. Cardiology yet to decide when she will have cardiac cath once kidney function is optimised. * stool for occult blood pending. She says she has had polyps removed in the past by Dr Arndt, and ahs been told to do a stool for occult blood by her PCP, but hasnt yet done it. 6. Debility due to morbid obesity * PT OT on board. * Fall precautions. * 8. Type 2 diabetes mellitus: * On Lantus 40 units daily and insulin sliding scale. Accu-Cheks AC at bedtime. * 9. Pulmonary fibrosis: On Ofev and on prednisone. DVT prophylaxis: Lovenox. Hold lovenox o/a of acute on chronic anemia. SCDs. Disposition: will need placement when medically ready for discharge. Plan is to go to the [facility] Code Visit Inpatient E&M: 75407 Subs Hosp L3
--- NOTE | 2019-03-30 13:59 | PN.CARD_ITS ---
Subjectve: The patient is awake and alert. She is currently receiving PRBCs. She appears to be tolerating them well thus far without any adverse events. Objective: Vital Signs Temp Pulse Resp BP Pulse Ox 98.3 F 70 18 111/62 95 03/30/19 13:55 03/30/19 13:55 03/30/19 13:55 03/30/19 13:55 03/30/19 13:55 Oxygen Flow Rate (L/min) [4] 2.5 Oxygen Flow Rate (L/min) [3] 2.5 Oxygen Flow Rate (L/min) [2] 2.5 Oxygen Flow Rate (L/min) [1 ( 2.5 Initial Baseline)] Oxygen Flow Rate (L/min) 2.5 Oxygen Delivery Method [4] Nasal Cannula Oxygen Delivery Method [3] Room Air Oxygen Delivery Method [2] Nasal Cannula Oxygen Delivery Method [1 ( Nasal Cannula Initial Baseline)] Oxygen Delivery Method Nasal Cannula Weight: 295 lb 10.238 oz Body Mass Index (BMI) 53.8 Finger Stick Blood Glucose 70 Intake and Output for Last 24 Hours 03/28/19 03/29/19 03/30/19 23:59 23:59 23:59 Intake Total 550 / 550 790 / 790 370 / 370 Output Total 3450 / 3450 100 / 100 Balance -2900 / -2900 790 / 790 270 / 270 General: Awake, Alert, Oriented x 3, Cooperative, No Acute Distress, Obese HEENT: Atraumatic, Normocephalic, PERRL, EOMI, Sclera Non Icteric Oral: Moist Mucosa Neck: Supple, Good ROM, No JVD Lungs: Diminished Jonas Bases Cardiovascular: Regular Rhythm, Normal S1, Normal S2 Abdomen: Bowel Sounds Present, Soft, Non Tender, Obese Extremities: - - Bilateral lower extremities: Bilateral Luiz wraps Psych/Mental Status: Appropriate 03/30/19 05:05: Sodium 133 L, Potassium 4.6, Chloride 102, Carbon Dioxide 24.0, Anion Gap 7, BUN 80 H, Creatinine 2.48 H, Est GFR (MDRD) Af Amer 25 L, Est GFR (MDRD) Non-Af 21 L, BUN/Creatinine Ratio 32.3 H, Glucose 95, Calcium 8.6, Phosphorus 4.9, Total Bilirubin 0.30 03/30/19 05:05: WBC 11.6 H, RBC 2.49 L, Hgb 7.1 L, Hct 24.0 L, MCV 96.4, MCH 28.5, MCHC 29.6 L, Plt Count 412, MPV 8.7, Immature Gran % (Auto) 2.600 H, Neut % (Auto) 72.9 H, Lymph % (Auto) 13.9 L, [place] % (Auto) 8.9, Eos % (Auto) 1.4, Baso % (Auto) 0.3, Absolute Neuts (auto) 8.5 H, Nucleated RBC % 0 Rhythm: Sinus rhythm Medical Necessity - Tobacco Use Smoking Status: Former smoker Tobacco Use: Cigarettes Assessment/Plan 1. Congestive heart failure At the present time she will continue to be monitored. She will continue medical adjustment. Based upon her echocardiographic findings she has been reported as having left ventricular regional wall motion abnormalities and diminished LVEF. She is being considered for future evaluation with diagnostic cardiac catheterization pending stabilization of her anemia and her renal function. 2. Hypertension She will continue medical management. 3. Diabetes mellitus She will continue evaluation care per internal medicine. 4. Chronic renal insufficiency She is being followed by nephrology. Nephrology input is most appreciated especially if she is to proceed with future evaluation in the cardiac catheterization laboratory to minimize the risk of IV contrast related nephropathy. 5. Anemia She remains anemic. It is unclear whether this is all related to her chronic renal sufficiency or there are other etiologies. She is currently receiving PRBCs. Comment: The patient's case has been discussed and reviewed with the patient and Dr. Feng. This note was generated using a voice recognition system and there may be incorrect words, spelling or punctuation that were not noted when reviewing the office note prior to saving.
[2019-03-30 16:55] LABS: Bedside Glucose 131 mg/dL (70-110)
[2019-03-30] MEDS: Atorvastatin Calcium 40 MG Tablet PO (21:17)
[2019-03-30] MEDS: Cyclopentolate 1% 2 ML Bottle 1 DRP LEFT EYE (21:17)
[2019-03-30] MEDS: Citalopram 40 MG TABLET PO (21:17)
[2019-03-30] MEDS: Montelukast 10 MG Tablet PO (21:17)
[2019-03-30] MEDS: MELATONIN 3 MG TABLET PO (21:22)
[2019-03-31] VITALS (14 sets, daily range): BP systolic 116–134; BP diastolic 65–75; PULSE 69–87; RESP 12–20; TEMP 36.4–36.9; O2SAT 93–98
[2019-03-31 00:21] LABS: Bedside Glucose 172 mg/dL (70-110)
[2019-03-31 06:58] LABS: Hematocrit 27.5 % (37-47); Hemoglobin 8.2 g/dL (12.0-15.0); Mean Corp Hgb Conc 29.8 g/dL (32-36); Mean Corpuscular Hgb 28.9 pg (27.0-32.0); Mean Corpuscular Volume 96.8 fL (81-99); Mean Platelet Vol. 8.8 fl (6.2-12.0); Platelet Count 413 K/mm3 (150-450); RBC Distribution Width CV 16.8 % (11.6-14.6); Red Blood Count 2.84 M/mm3 (4.2-5.4)
[2019-03-31 07:10] LABS: Anion Gap 7 (5-15); BUN 75 mg/dL (7-18); BUN/Creat Ratio 31.8 RATIO (10-20); Calcium,Total 8.6 mg/dL (8.5-10.1); Chloride 103 mmol/L (98-107); Creatinine, Serum 2.36 mg/dL (0.55-1.02); EST Glomerular Filtration Rate 22 mL/min (>60); Est Glom Filt Rate - Afr Amer 27 mL/min (>60); Estimated Creatinine Clearance 21.39 ml/min; Glucose 118 mg/dL (74-106); Potassium 4.5 mmol/L (3.5-5.1); Sodium Level 136 mmol/L (136-145)
[2019-03-31] MEDS: Ipratropium/Albuterol Sulfate 3 ML AMPUL.NEB INHALATION ×4 (07:13→19:32)
--- NOTE | 2019-03-31 07:40 | CON.PCM_ITS ---
- Consult Date of Consult: 03/31/19 - Reason for Consult CC: anemia, I was consulted for consideration of upper and lower endoscopy HISTORY OF PRESENT ILLNESS: Shivani Shipman a 64 year old female who presented to [facility] ED with shortness of breath and weight gain - diagnosed with acute CHF. Admitted for acute CHF and MARIAN. She has anemia of chronic disease, she had been evaluated for upper and lower endoscopy in the past. The patient was seen by Dr. Arndt for colonoscopy 08/24/11 while an inpatient at [facility]. She had been admitted for reported GI bleed with clots. A diminutive polyp was removed from the distal descending colon. I am not able to find any documentation on pathology in [facility] records. Patient has been on Pantoprazole with some benefit, though still reports reflux symptoms. Denies abdominal pain at present, except at site of recent paracentesis. She admits to some incontinence while sleeping. She tried fiber without improvement. Loperamide makes her constipated, so she uses it sparingly. Seeing blood with some bowel movements - stools aren't necessarily hard and she tries not to strain. Sees blood in her undergarments. Her Hgb is 7.1 with normal platelet count. ? PAST MEDICAL HISTORY ? Acute on chronic diastolic congestive heart failure (HCC) 07/18/2018 ? Allergic rhinitis 09/10/2009 ? Anemia 02/01/2010 ? Background diabetic retinopathy 11/23/2009 ? Benign neoplasm of duodenum, jejunum, and ileum ? ? CKD (chronic kidney disease) stage 4, GFR 15-29 ml/min ([facility]) 09/05/2017 ? Cocaine abuse ([facility]) 2004 ? Complex renal cyst 01/15/2014 ? Depressive disorder, not elsewhere classified 09/10/2009 ? Edema 01/26/2010 ? HYPERTENSION NOS 04/08/2005 ? ILD (interstitial lung disease) ([facility]) 12/06/2017 ? 11/07/17 CT chest, 09/25/17 PFTs. ? Neuropathy in diabetes ([facility]) 09/10/2009 ? Obesity 09/10/2009 ? PATRICK (obstructive sleep apnea) 04/27/2010 ? Renal insufficiency 02/01/2010 ? Respiratory failure with hypoxia ([facility]) 07/17/2018 ? Sepsis due to pneumonia ([facility]) 06/04/2018 ? intubated, temporary dialysis ? Type II or unspecified type diabetes mellitus with neurological manifestations, not stated as uncontrolled(250.60) 02/14/2010 ?? PAST SURGICAL HISTORY ? COLONOSCOP W/ OR W/O [facility] [[email or web address] SPEC ? ? Colonoscopy inpt [facility] ? DIALYSIS CATHETER PLACEMENT Right 06/17/2018 ? LAPAROSCOPIC CHOLEYCYSTECTOMY ? 1998 ? Cholecystectomy, lap ? REMOVAL OF TONSILS,<12 Y/O ? 1984 ? Tonsillectomy ? FAMILY HISTORY ? Diabetes Mother ? ? Hypertension Mother ? ? Stroke Mother ? ? age 86 ? Heart Mother ? ? Prostate Cancer Father ? ? age 80 ? Cancer Father ? ? Skin ? Prostate Cancer Paternal Grandfather ? ? Asthma No Family History ? ? COPD No Family History ? ? CURRENT MEDICATIONS ? predniSONE (DELTASONE) 10 mg tablet Take 1 tablet by mouth once daily. 30 tablet 5 ? furosemide (LASIX) 20 mg tablet Take 1 tablet by mouth once daily. 3 tablet 0 ? fluticasone (FLONASE) 50 mcg/actuation nasal spray Use 2 Sprays in each nostril once daily. Rinse mouth after use. 1 Bottle 0 ? benzonatate (TESSALON PERLES) 100 mg capsule Take 1 capsule by mouth three times daily as needed for Cough. 12 capsule 0 ? loperamide (IMODIUM) 2 mg cap(s) Take 1 capsule by mouth four times daily as needed. 100 capsule 3 ? pantoprazole DR (PROTONIX) 40 mg tablet Take 1 tablet by mouth daily before breakfast. Take on empty stomach, 1/2 hr before meal. 30 tablet 1 ? ergocalciferol 50,000 unit capsule (VITAMIN D2, DRISDOL) Take 1 capsule by mouth one time a week. 12 capsule 0 ? albuterol (PROVENTIL) 2.5 mg /3 mL (0.083 %) nebulizer solution Use 3 mL via nebulizer every 6 hours as needed (OVER 5-15 MINUTES. FOR WHEEZING AND SHORTNESS OF BREATH.). 75 Vial 2 ? gabapentin (NEURONTIN) 300 mg capsule Take 1 capsule by mouth twice daily for 180 days. 60 capsule 5 ? atorvastatin (LIPITOR) 40 mg tablet Take 1 tablet by mouth once daily. 30 tablet 5 ? calcitriol (ROCALTROL) 0.5 mcg capsule Take 2 capsules by mouth once daily. 60 capsule 5 ? lisinopril (ZESTRIL, PRINIVIL) 20 mg tablet Take 1 tablet by mouth once daily. 30 tablet 5 ? COMPOUNDED PRESCRIPTION 2 Liters oxygen - portable tank. Fill 4 times a month. Dx: J84.9, R09.02, J44.9 1 Device 4 ? insulin regular human (NOVOLIN R REGULAR U-100 INSULN) 100 unit/mL injection SLIDING SCALE: 70-150=0;151-200=4u; 201-250=8u; 251-300=10u; 301-350=12u; 351-400=16u; glucose >400=16u also. ? ? ? montelukast (SINGULAIR) 10 mg tablet Take 1 tablet by mouth daily at bedtime. For asthma 30 tablet 5 ? insulin regular human (NOVOLIN R REGULAR U-100 INSULN) 100 unit/mL injection Inject 8 Units subcutaneously three times daily before meals. Plus SLIDING SCALE. ? ? ? insulin NPH human (NOVOLIN N NPH U-100 INSULIN) injection Inject 40 Units subcutaneously every morning. ? ? ? OFEV 150 mg capsule TAKE 1 CAPSULE BY MOUTH TWICE A DAY EVERY 12 HOURS DIRECTED WITH FOOD ? 11 ? prednisoLONE acetate (PRED FORTE, ECONOPRED PLUS) 1 % ophthalmic suspension instill 1 drop into the left eye twice a day ? 12 ? albuterol HFA (PROAIR HFA) 90 mcg/actuation inhaler Inhale 2 Puffs as instructed every 6 hours as needed for Wheezing/Shortness of Breath. 1 Inhaler 11 ? COMPOUNDED PRESCRIPTION Mask, headgear, tubing, and filters for bipap. DX PATRICK G47.33 1 Each 0 ? BIPAP Initiate BiPAP @ 16/10 cm of water with humidification. Mask - Resmed Large N20 interface with large headgear.. optional chin strap (if indicated) , filters, tubing, humidifier and lifetime supplies. 1 Device 0 ? docusate sodium (DULCOLAX STOOL SOFTENER, DSS,) 100 mg capsule Take 1 capsule by mouth twice daily as needed. ? ? ? COMPOUNDED PRESCRIPTION Oxygen Concentrator Oxygen 2 liters at night with BiPAP machine. 327.23 PATRICK (obstructive sleep apnea) (primary encounter diagnosis) 1 Device 0 ? Lancets lancets Use as instructed to check blood sugar 4 to 5 times daily DM: yes Insulin: yes DX: E11.65 200 Each 11 ? citalopram (CELEXA) 40 mg ORAL tablet Take one(1) tablet daily per [facility]. ? 0 ALLERGIES: haloperidol ? SOCIAL HISTORY: Patient is and lives with her significant other for years. She quit smoking in 2011. She reports her alcohol use as none. ? REVIEW OF SYSTEMS: GENERAL: No weight loss, malaise or fevers RESPIRATORY: As noted above. Worsening of SOB. CARDIOVASCULAR: As reported above. No chest pain GI: The patient states that her appetite has been adequate. She does not get hungry. There has been no nausea, no vomiting. She denies dysphagia and denies odynophagia. There has partially been indigestion with heartburn. There has not been regurgitation. Bowel habits have been regular. There has been diarrhea. There has not been constipation. The patient reports bright red rectal bleeding. There has not been melena. Notes lower abdominal/pelvic pain and bilateral flank pain. PSYCH: Negative for sleep disturbance, mood disorder and recent psychosocial stressors. HEMATOLOGY/LYMPHOLOGY has easy bruising, Negative for spontaneous\prolonged bleeding or swollen nodes ENDOCRINE: Positive for diabetes mellitus on insulin NEURO: No history of headaches, syncope, paralysis, seizures or tremors All other reviewed and negative other than HPI ? PHYSICAL EXAMINATION: O2 per [place]. GILLIS. VITALS; Temp 97.7F Blood pressure 133/74, pulse 98, RR: 18 Ht: 5'5 weight 289# General Appearance: Alert, in no acute distress, well-hydrated, well nourished. Skin: Skin color, texture, turgor normal, no suspicious rashes or lesions. Head: Normocephalic, no masses, lesions or abnormalities. Eyes: Anicteric sclera. Neck: Supple, no JVD or tracheal deviation noted Lungs: Lungs with crackles in the lower lobes (posteriorally). No wheezing. Heart: RRR without murmur. Abdomen: Abdomen soft and obese, rounded, non-tender. Bowel sounds normal. Difficult to determine if any masses due to body habitus Extremities: No deformities. Neuro - non focal Impression: anemia Plan: will plan upper and lower endoscopy on Sunday as discussed with Dr. Feng I have explained procedures to the patient. Risks/benefits explained. Infection/bleeding/perforation are possibilities. Patient agrees to proceed. Suspect she will require two day colon cleansing preparation - will start clear liquids today.
[2019-03-31 08:15] LABS: Bedside Glucose 108 mg/dL (70-110)
[2019-03-31] MEDS: Insulin Lispro 100 UNIT/ML INSULN.PEN 8 UNIT SC ×3 (08:29→16:58)
[2019-03-31] MEDS: predniSONE 10 MG Tablet PO (08:30)
[2019-03-31] MEDS: Furosemide 40 MG/4 ML Vial IV ×2 (08:31→16:58)
[2019-03-31] MEDS: Gabapentin 300 MG Capsule PO ×2 (08:31→21:23)
[2019-03-31] MEDS: prednisoLONE eye drops (5 mL) 1 DROP OPTH.BTL 2 DRP LEFT EYE (08:31)
[2019-03-31] MEDS: Pantoprazole Sodium 20 MG Tablet PO (08:32)
[2019-03-31] MEDS: Metoprolol(XL)Succ 25 MG Tablet PO (08:32)
[2019-03-31] MEDS: 0.9% Saline Lock 10 ML Syringe IV ×2 (08:42→16:57)
--- NOTE | 2019-03-31 11:26 | CASEMGMT ---
NIKOLE faxed updates to [facility]. NIKOLE wrote on fax face sheet that patient is not ready for discharge. Plan: [facility] at [place] under skilled level of care when medically ready. Christy ALEXANDRA MSW
--- NOTE | 2019-03-31 11:48 | PN_ITS ---
Patient Problems: Active and Suspected Problems Abnormal echocardiogram (Acute) Reason for Visit: Follow-up acute congestive heart failure Subjective: Patient is a 64-year-old lady admitted with progressive shortness of breath. Found to have anemia as well as acute congestive heart failure. Objective: GENERAL: cooperative HEENT: Atraumatic; EYES; Anicteric, Normal Conjunctiva NECK; supple, normal thyroid, RESPIRATORY: Diminished to auscultation CARDIOVASCULAR: Regular S1 S2, GI: soft, normoactive bowel sounds, : No Renal angle tenderness; EXTREMITIES: No edema, no clubbing, MUSCULOSKELETAL: no muscle waisting NEURO: Awake; no lateralizing signs. SKIN: No Rash PSYCH; Flat affect Vitals/I&O's: Vital Signs Temp Pulse Resp BP Pulse Ox 97.8 F 75 14 117/67 95 03/31/19 09:10 03/31/19 09:10 03/31/19 09:10 03/31/19 09:10 03/31/19 09:10 Oxygen Flow Rate (L/min) [4] 2.5 Oxygen Flow Rate (L/min) [3] 2.5 Oxygen Flow Rate (L/min) [2] 2.5 Oxygen Flow Rate (L/min) [1 ( 2.5 Initial Baseline)] Oxygen Flow Rate (L/min) 2.5 Oxygen Delivery Method [4] Nasal Cannula Oxygen Delivery Method [3] Room Air Oxygen Delivery Method [2] Nasal Cannula Oxygen Delivery Method [1 ( Nasal Cannula Initial Baseline)] Oxygen Delivery Method Nasal Cannula Weight: 131.2 kg Body Mass Index (BMI) 53.8 Finger Stick Blood Glucose 70 Intake and Output for Last 24 Hours 03/29/19 03/30/19 03/31/19 23:59 23:59 23:59 Intake Total 790 / 790 880 / 880 120 / 120 Output Total 1000 / 1000 Balance 790 / 790 -120 / -120 120 / 120 Microbiology Past 72 Hours 03/31/19 09:40 Stool Stool Occult Blood (EVA) - Final Laboratory Results 03/30/19 09:10: Crossmatch See Detail 03/30/19 11:42: POC Glucose 141 H 03/30/19 16:47: POC Glucose 131 H 03/30/19 21:33: POC Glucose 172 H 03/31/19 05:59: WBC 12.0 H, RBC 2.84 L, Hgb 8.2 L, Hct 27.5 L, MCV 96.8, MCH 28.9, MCHC 29.8 L, RDW Std Deviation 60.0 H, RDW Coeff of Letitia 16.8 H, Plt Count 413, MPV 8.8 03/31/19 05:59: Sodium 136, Potassium 4.5, Chloride 103, Carbon Dioxide 26.0, Anion Gap 7, BUN 75 H, Creatinine 2.36 H, Estim Creat Clear Calc 21.39, Est GFR (MDRD) Af Amer 27 L, Est GFR (MDRD) Non-Af 22 L, BUN/Creatinine Ratio 31.8 H, Glucose 118 H, Calcium 8.6 03/31/19 07:41: POC Glucose 108 Current Medications Acetaminophen (Tylenol) 650 mg PO Q6H PRN PRN PRN Reason: Pain Score 1-3/Temp > 100.7 F Last Admin: 03/29/19 20:16 Dose: 650 mg Documented by: Albuterol/Ipratropium (Duoneb) 3 ml INHALATION Q4HWA.RT [facility] Last Admin: 03/31/19 10:55 Dose: 3 ml Documented by: Artificial Tears (Tears Naturale, Artificial Tears) 1 drop RIGHT EYE BID [facility] Last Admin: 03/31/19 08:32 Dose: 1 drop Documented by: Atorvastatin Calcium (Lipitor) 40 mg PO QHS [facility] Last Admin: 03/30/19 21:17 Dose: 40 mg Documented by: Citalopram Hydrobromide (Celexa) 40 mg PO QHS [facility] Last Admin: 03/30/19 21:17 Dose: 40 mg Documented by: Cyclopentolate HCl (Cyclogyl) 1 drop LEFT EYE QHS [facility] Last Admin: 03/30/19 21:17 Dose: 1 drop Documented by: Dextrose (D50w Syringe) 0 gm IV X1 PRN; Protocol PRN Reason: Hypoglycemia Enoxaparin Sodium (Lovenox) 30 mg SC DAILY [facility] Last Admin: 03/29/19 22:16 Dose: Not Given Documented by: Ergocalciferol (Vitamin D) 50,000 unit PO Th@1000 [facility] Last Admin: 03/27/19 09:36 Dose: 50,000 unit Documented by: Furosemide (Lasix) 40 mg IV BIDLX [facility] Last Admin: 03/31/19 08:31 Dose: 40 mg Documented by: Gabapentin (Neurontin) 300 mg PO BID [facility] Last Admin: 03/31/19 08:31 Dose: 300 mg Documented by: Glucagon () 1 mg IM .X1 PRN PRN Reason: Hypoglycemia Insulin Glargine (Lantus (Bkc)) 40 units SC DAILY [facility] Last Admin: 03/31/19 08:30 Dose: 40 u Documented by: Insulin Human Lispro (Humalog Kwikpen (Bkc)) 8 unit SC TIDCM [facility] Last Admin: 03/31/19 08:29 Dose: 8 units Documented by: Insulin Human Lispro (Humalog Kwikpen (Bkc)) 0 unit SC TIDAC [facility]; Protocol Last Admin: 03/31/19 08:16 Dose: Not Given Documented by: Melatonin (Melatonin) 3 mg PO QHS PRN PRN PRN Reason: INSOMNIA Last Admin: 03/30/19 21:22 Dose: 3 mg Documented by: Metoprolol Succinate (Toprol Xl (Beta Lesli)) 25 mg PO DAILY [facility] Last Admin: 03/31/19 08:32 Dose: 25 mg Documented by: Montelukast Sodium (Singulair) 10 mg PO QHS [facility] Last Admin: 03/30/19 21:17 Dose: 10 mg Documented by: Non-Formulary Medication (Nintedanib Esylate) 150 mg PO 0900,2100 [facility] Last Admin: 03/31/19 08:30 Dose: 150 mg Documented by: Ondansetron HCl (Zofran) 4 mg IV Q8H PRN PRN PRN Reason: NAUSEA/VOMITING Pantoprazole Sodium (Protonix) 20 mg PO DAILY [facility] Last Admin: 03/31/19 08:32 Dose: 20 mg Documented by: Prednisolone Acetate (Pred Forte Eye Drops (5 Ml)) 2 drop LEFT EYE DAILY [facility] Last Admin: 03/31/19 08:31 Dose: 2 drop Documented by: [facility] () [facility] Last Admin: 03/31/19 08:30 Dose: 10 mg Documented by: Sodium Chloride () 10 - 40 ml IV UD PRN PRN Reason: SALINE FLUSH Last Admin: 03/31/19 08:42 Dose: 10 ml Documented by: STROKE Vital Signs/Narrative: Vital Signs Temp Pulse Resp BP Pulse Ox 03/31/19 09:10 97.8 F 75 14 117/67 95 03/31/19 08:32 87 Medical Necessity - Tobacco Use Smoking Status: Former smoker Tobacco Use: Cigarettes Assessment/Plan All Active Problems Abnormal echocardiogram (Acute) Hyponatremia (Acute) Severe sepsis (Acute) Hyperkalemia (Acute) Metabolic acidosis (Acute) Cocaine dependence, episodic (Resolved) Tobacco use disorder (Resolved) Patient is a 64-year-old lady admitted with progressive shortness of breath. Found to have anemia as well as acute congestive heart failure. 1. Acute congestive heart failure with reduced ejection fraction ?Echo obtained during patient hospital stay demonstrated EF of 40%. Patient managed with Lasix. Cardiology consulted with plans for patient to undergo left heart catheterization for evaluation of her coronaries 2. Anemia secondary to anemia of chronic disorder. ?Patient was transfused with 1 unit PRBC on 03/30/2019 with patient deemed symptomatic. Consult was also placed to Dr. Linda with general surgery with plans for patient to undergo endoscopic evaluation on 04/02/2019 3. Ascites ?Secondary to combination of worsening chronic kidney disease as well as heart failure. Patient underwent paracentesis on 03/27/2019 with removal of 6.8 L of ascitic fluid 4. Hyponatremia secondary to patient hypervolumic state Improved with diuresis 5. Chronic kidney disease stage IV Consult placed to nephrology patient has been seen by Dr. Jo Gutierrez and notes and recommendations reviewed 6. Diabetes mellitus type 2 ?Placed on Accu-Cheks before meals and at bedtime with sliding scale coverage. Did continue patient scheduled Lantus 7. Pulmonary fibrosis - patient is on Ofev and on prednisone. 8. Morbid obesity With BMI of 48.1, weight loss advised 9. DVT prophylaxis - systemic anticoagulation on hold in view of patient significant anemia Code Visit Inpatient E&M: 18549 Subs Hosp L2
[2019-03-31 12:06] LABS: Bedside Glucose 136 mg/dL (70-110)
--- NOTE | 2019-03-31 12:47 | PCM.PN.REN ---
Patient Problems: Active and Suspected Problems Abnormal echocardiogram (Acute) Subjective: received prbc over weekend. iv iron given. Scheduled for endoscopy. Edema persists. Diuresing well on iv lasix. ECho with decreased LV function. Plan for heart cath when medically stable. - Physical Exam Vitals/I&O's: Vital Signs Temp Pulse Resp BP Pulse Ox 97.8 F 75 14 117/67 95 03/31/19 09:10 03/31/19 09:10 03/31/19 09:10 03/31/19 09:10 03/31/19 09:10 Oxygen Flow Rate (L/min) [4] 2.5 Oxygen Flow Rate (L/min) [3] 2.5 Oxygen Flow Rate (L/min) [2] 2.5 Oxygen Flow Rate (L/min) [1 ( 2.5 Initial Baseline)] Oxygen Flow Rate (L/min) 2.5 Oxygen Delivery Method [4] Nasal Cannula Oxygen Delivery Method [3] Room Air Oxygen Delivery Method [2] Nasal Cannula Oxygen Delivery Method [1 ( Nasal Cannula Initial Baseline)] Oxygen Delivery Method Nasal Cannula Weight: 131.2 kg Body Mass Index (BMI) 53.8 Finger Stick Blood Glucose 70 Intake and Output for Last 24 Hours 03/29/19 03/30/19 03/31/19 23:59 23:59 23:59 Intake Total 790 / 790 880 / 880 620 / 620 Output Total 1000 / 1000 200 / 200 Balance 790 / 790 -120 / -120 420 / 420 General: Alert, Oriented x3, Cooperative, No apparent distress Lungs: Clear to auscultation Cardiovascular: Regular rate Abdomen: Bowel Sounds Present, Soft, Non Tender, Obese Extremities: Edema - 1+ pitting edema Skin: No rashes Musculoskeletal: - - gen weakness Neurological: - - no tremor Psych/Mental Status: Normal Affect, Appropriate, Alert and oriented to time, place, person, mood and affect Microbiology Past 72 Hours 03/31/19 09:40 Stool Stool Occult Blood ([facility]) - Final Laboratory Results 03/30/19 09:10: Crossmatch See Detail 03/30/19 16:47: POC Glucose 131 H 03/30/19 21:33: POC Glucose 172 H 03/31/19 05:59: WBC 12.0 H, RBC 2.84 L, Hgb 8.2 L, Hct 27.5 L, MCV 96.8, MCH 28.9, MCHC 29.8 L, RDW Std Deviation 60.0 H, RDW Coeff of Letitia 16.8 H, Plt Count 413, MPV 8.8 03/31/19 05:59: Sodium 136, Potassium 4.5, Chloride 103, Carbon Dioxide 26.0, Anion Gap 7, BUN 75 H, Creatinine 2.36 H, Estim Creat Clear Calc 21.39, Est GFR (MDRD) Af Amer 27 L, Est GFR (MDRD) Non-Af 22 L, BUN/Creatinine Ratio 31.8 H, Glucose 118 H, Calcium 8.6 03/31/19 07:41: POC Glucose 108 03/31/19 11:51: POC Glucose 136 H Current Medications Acetaminophen (Tylenol) 650 mg PO Q6H PRN PRN PRN Reason: Pain Score 1-3/Temp > 100.7 F Last Admin: 03/29/19 20:16 Dose: 650 mg Documented by: Albuterol/Ipratropium (Duoneb) 3 ml INHALATION Q4HWA.RT [facility] Last Admin: 03/31/19 10:55 Dose: 3 ml Documented by: Artificial Tears (Tears Naturale, Artificial Tears) 1 drop RIGHT EYE BID [facility] Last Admin: 03/31/19 08:32 Dose: 1 drop Documented by: Atorvastatin Calcium (Lipitor) 40 mg PO QHS [facility] Last Admin: 03/30/19 21:17 Dose: 40 mg Documented by: Citalopram Hydrobromide (Celexa) 40 mg PO QHS [facility] Last Admin: 03/30/19 21:17 Dose: 40 mg Documented by: Cyclopentolate HCl (Cyclogyl) 1 drop LEFT EYE QHS [facility] Last Admin: 03/30/19 21:17 Dose: 1 drop Documented by: Dextrose (D50w Syringe) 0 gm IV X1 PRN; Protocol PRN Reason: Hypoglycemia Enoxaparin Sodium (Lovenox) 30 mg SC DAILY [facility] Last Admin: 03/29/19 22:16 Dose: Not Given Documented by: Ergocalciferol (Vitamin D) 50,000 unit PO Th@1000 [facility] Last Admin: 03/27/19 09:36 Dose: 50,000 unit Documented by: Furosemide (Lasix) 40 mg IV BIDLX [facility] Last Admin: 03/31/19 08:31 Dose: 40 mg Documented by: Gabapentin (Neurontin) 300 mg PO BID [facility] Last Admin: 03/31/19 08:31 Dose: 300 mg Documented by: Glucagon () 1 mg IM .X1 PRN PRN Reason: Hypoglycemia Insulin Glargine (Lantus (Bkc)) 40 units SC DAILY [facility] Last Admin: 03/31/19 08:30 Dose: 40 u Documented by: Insulin Human Lispro (Humalog Kwikpen (Bkc)) 8 unit SC TIDCM [facility] Last Admin: 03/31/19 11:53 Dose: 8 units Documented by: Insulin Human Lispro (Humalog Kwikpen (Bkc)) 0 unit SC TIDAC [facility]; Protocol Last Admin: 03/31/19 11:53 Dose: Not Given Documented by: Melatonin (Melatonin) 3 mg PO QHS PRN PRN PRN Reason: INSOMNIA Last Admin: 03/30/19 21:22 Dose: 3 mg Documented by: Metoprolol Succinate (Toprol Xl (Beta Lesli)) 25 mg PO DAILY [facility] Last Admin: 03/31/19 08:32 Dose: 25 mg Documented by: Montelukast Sodium (Singulair) 10 mg PO QHS [facility] Last Admin: 03/30/19 21:17 Dose: 10 mg Documented by: Non-Formulary Medication (Nintedanib Esylate) 150 mg PO 0900,2100 [facility] Last Admin: 03/31/19 08:30 Dose: 150 mg Documented by: Ondansetron HCl (Zofran) 4 mg IV Q8H PRN PRN PRN Reason: NAUSEA/VOMITING Pantoprazole Sodium (Protonix) 20 mg PO DAILY [facility] Last Admin: 03/31/19 08:32 Dose: 20 mg Documented by: Prednisolone Acetate (Pred Forte Eye Drops (5 Ml)) 2 drop LEFT EYE DAILY [facility] Last Admin: 03/31/19 08:31 Dose: 2 drop Documented by: [facility] () [facility] Last Admin: 03/31/19 08:30 Dose: 10 mg Documented by: Sodium Chloride () 10 - 40 ml IV UD PRN PRN Reason: SALINE FLUSH Last Admin: 03/31/19 08:42 Dose: 10 ml Documented by: Medical Necessity - Tobacco Use Smoking Status: Former smoker Tobacco Use: Cigarettes Assessment/Plan All Active Problems Abnormal echocardiogram (Acute) Hyponatremia (Acute) Severe sepsis (Acute) Hyperkalemia (Acute) Metabolic acidosis (Acute) Cocaine dependence, episodic (Resolved) Tobacco use disorder (Resolved) 1. Rangel on CKD stage 4. Creatinine 2.4 eGFR 22cc/min . Hx ATN requiring temporary hemodialysis in 2019. Baseline creatinine 2.0 now at 2.8. 24h urine CRCL 32cc/min likely overestimation. Likely has underlying nephrosclerosis, chronic tubulointerstitial disease, diabetic nephropathy. Optimize renal fxn and continue with fluid removal with iv lasix. Suggest mucomyst before heart cath. 2. Hyperkalemia stopped lisinopril 3. Hyponatremia due to volume expansion resolved on Iv lasix 4. CHF, fluid overload, edema. continue iv lasix 5. DM2 stable 6 HTN stable 7. Iron def anemia s/p iv iron, prbc. Endoscopy per GS. 8. pulmonary fibrosis on nintedanib
[2019-03-31] MEDS: Epoetin Alfa epbx 10,000 UNITS/ML 10000 UNIT SC (14:01)
--- NOTE | 2019-03-31 16:38 | PCM.PN.CARD ---
Subjectve: Patient feels better overall with diuresis. She was seen by Dr. Linda who is planning to do EGD and colonoscopy on Sunday. Creatinine is also improving. Objective: Vital Signs Temp Pulse Resp BP Pulse Ox 98.4 F 86 18 120/65 97 03/31/19 14:38 03/31/19 15:00 03/31/19 14:38 03/31/19 14:38 03/31/19 14:38 Oxygen Flow Rate (L/min) [4] 2.5 Oxygen Flow Rate (L/min) [3] 2.5 Oxygen Flow Rate (L/min) [2] 2.5 Oxygen Flow Rate (L/min) [1 ( 2.5 Initial Baseline)] Oxygen Flow Rate (L/min) 2 Oxygen Delivery Method [4] Nasal Cannula Oxygen Delivery Method [3] Room Air Oxygen Delivery Method [2] Nasal Cannula Oxygen Delivery Method [1 ( Nasal Cannula Initial Baseline)] Oxygen Delivery Method Nasal Cannula Weight: 289 lb 3.944 oz Body Mass Index (BMI) 53.8 Finger Stick Blood Glucose 70 Intake and Output for Last 24 Hours 03/29/19 03/30/19 03/31/19 23:59 23:59 23:59 Intake Total 790 / 790 880 / 880 620 / 620 Output Total 1000 / 1000 200 / 200 Balance 790 / 790 -120 / -120 420 / 420 General: Awake, Alert, Oriented x 3 HEENT: Atraumatic Neck: Supple Lungs: Rales - Left Base Cardiovascular: Regular Rhythm Abdomen: Soft Extremities: Bilateral Edema +1 Skin: No Rashes Psych/Mental Status: Appropriate 03/31/19 05:59: WBC 12.0 H, RBC 2.84 L, Hgb 8.2 L, Hct 27.5 L, MCV 96.8, MCH 28.9, MCHC 29.8 L, Plt Count 413, MPV 8.8 03/31/19 05:59: Sodium 136, Potassium 4.5, Chloride 103, Carbon Dioxide 26.0, Anion Gap 7, BUN 75 H, Creatinine 2.36 H, Est GFR (MDRD) Af Amer 27 L, Est GFR (MDRD) Non-Af 22 L, BUN/Creatinine Ratio 31.8 H, Glucose 118 H, Calcium 8.6 Rhythm: EKG: ECHO: Stress Test: Cardiac Cath: PCI: CT Surgery: Holter monitor: EPS: PPM: CXR: Chest CT Scan: Medical Necessity - Tobacco Use Smoking Status: Former smoker Tobacco Use: Cigarettes Assessment/Plan 1. CHF: Improving. Agree with continuing IV Lasix at this time. No JAMES inhibitor's at this time because of CKD. Patient has history of hyperkalemia recently. She does have regional wall motion abnormalities and would eventually require coronary angiography to look for cause of her regional wall motion abnormalities. Patient has significant chronic anemia and CKD which make coronary angiography and subsequent management in the form of percutaneous coronary intervention, if required, higher risk. Patient came in to the hospital with MARIAN in addition to her CKD. We can proceed with coronary angiography when it is felt that her renal function is more or less close to her baseline. She is still at high risk of contrast-induced nephropathy. Patient has received hemodialysis in the past for a brief time. Patient is scheduled for EGD and colonoscopy. If there is no active bleeding and if her hemoglobin and creatinine are stable then we will consider coronary angiography. From a cardiac standpoint it seems to be reasonable to proceed with endoscopy prior to cardiac catheterization. Thank you very much for the referral. We will continue to follow this patient along with you
[2019-03-31 17:06] LABS: Bedside Glucose 77 mg/dL (70-110)
[2019-03-31] MEDS: Cyclopentolate 1% 2 ML Bottle 1 DRP LEFT EYE (21:21)
[2019-03-31] MEDS: Citalopram 40 MG TABLET PO (21:23)
[2019-03-31] MEDS: Atorvastatin Calcium 40 MG Tablet PO (21:23)
[2019-03-31] MEDS: Montelukast 10 MG Tablet PO (21:23)
[2019-03-31] MEDS: Dextrose 10%-Water 250 ML 999 ML IV (21:45)
[2019-03-31 22:06] LABS: Bedside Glucose 157 mg/dL (70-110)
[2019-04-01] VITALS (11 sets, daily range): BP systolic 108–129; BP diastolic 55–74; PULSE 70–90; RESP 16–20; TEMP 36.4–36.8; O2SAT 96–100
[2019-04-01] LABS: Bedside Glucose 62 mg/dL (70-110)
[2019-04-01 03:06] LABS: Bedside Glucose 74 mg/dL (70-110)
[2019-04-01 06:05] LABS: Hematocrit 29.8 % (37-47); Hemoglobin 8.9 g/dL (12.0-15.0); Mean Corp Hgb Conc 29.9 g/dL (32-36); Mean Corpuscular Volume 97.1 fL (81-99); Mean Platelet Vol. 8.6 fl (6.2-12.0); Platelet Count 376 K/mm3 (150-450); RBC Distribution Width CV 16.9 % (11.6-14.6); RBC Distribution Width SD 59.7 fl (35.1-43.9); Red Blood Count 3.07 M/mm3 (4.2-5.4); White Blood Count 12.5 K/mm3 (4.4-11.0)
[2019-04-01 06:16] LABS: Bedside Glucose 28 mg/dL (70-110)
[2019-04-01] MEDS: Dextrose 10%-Water 250 ML 999 ML IV (06:24)
[2019-04-01 06:37] LABS: Anion Gap 7 (5-15); BUN 67 mg/dL (7-18); BUN/Creat Ratio 31.8 RATIO (10-20); Calcium,Total 8.9 mg/dL (8.5-10.1); Chloride 102 mmol/L (98-107); Creatinine, Serum 2.11 mg/dL (0.55-1.02); EST Glomerular Filtration Rate 25 mL/min (>60); Est Glom Filt Rate - Afr Amer 30 mL/min (>60); Estimated Creatinine Clearance 23.92 ml/min; Glucose 32 mg/dL (74-106); Potassium 3.8 mmol/L (3.5-5.1); Sodium Level 137 mmol/L (136-145)
[2019-04-01] MEDS: Ipratropium/Albuterol Sulfate 3 ML AMPUL.NEB INHALATION ×3 (06:44→18:31)
[2019-04-01 06:50] LABS: Bedside Glucose 142 mg/dL (70-110)
[2019-04-01 07:25] LABS: Bedside Glucose 50 mg/dL (70-110)
[2019-04-01 07:25] LABS: Bedside Glucose 30 mg/dL (70-110)
[2019-04-01] MEDS: 0.9% Saline Lock 10 ML Syringe IV ×4 (09:06→20:41)
[2019-04-01] MEDS: predniSONE 10 MG Tablet PO (09:06)
[2019-04-01] MEDS: Furosemide 40 MG/4 ML Vial IV ×2 (09:06→17:36)
[2019-04-01] MEDS: Gabapentin 300 MG Capsule PO ×2 (09:06→21:00)
[2019-04-01] MEDS: prednisoLONE eye drops (5 mL) 1 DROP OPTH.BTL 2 DRP LEFT EYE (09:06)
[2019-04-01] MEDS: Pantoprazole Sodium 20 MG Tablet PO (09:06)
[2019-04-01] MEDS: Metoprolol(XL)Succ 25 MG Tablet PO (09:07)
--- NOTE | 2019-04-01 10:18 | PN_ITS ---
Patient Problems: Active and Suspected Problems Abnormal echocardiogram (Acute) Reason for Visit: Follow-up acute congestive heart failure and symptomatic anemia Subjective: Patient currently on clear liquid in anticipation of her endoscopic evaluation on 04/02/2019. Was found to be hypoglycemic this a.m. with blood glucose as low as 24. Her long-acting insulin subsequently placed on hold Objective: GENERAL: cooperative HEENT: Atraumatic; EYES; Anicteric, Normal Conjunctiva NECK; supple, normal thyroid, RESPIRATORY: Diminished to auscultation CARDIOVASCULAR: Regular S1 S2, GI: soft, normoactive bowel sounds, : No Renal angle tenderness; EXTREMITIES: No edema, no clubbing, MUSCULOSKELETAL: no muscle waisting NEURO: Awake; no lateralizing signs. SKIN: No Rash PSYCH; Flat affect Vitals/I&O's: Vital Signs Temp Pulse Resp BP Pulse Ox 98.2 F 70 20 H 129/70 H 96 04/01/19 09:00 04/01/19 09:07 04/01/19 09:00 04/01/19 09:00 04/01/19 09:00 Oxygen Flow Rate (L/min) [4] 2.5 Oxygen Flow Rate (L/min) [3] 2.5 Oxygen Flow Rate (L/min) [2] 2.5 Oxygen Flow Rate (L/min) [1 ( 2.5 Initial Baseline)] Oxygen Flow Rate (L/min) 2.5 Oxygen Delivery Method [4] Nasal Cannula Oxygen Delivery Method [3] Room Air Oxygen Delivery Method [2] Nasal Cannula Oxygen Delivery Method [1 ( Nasal Cannula Initial Baseline)] Oxygen Delivery Method Nasal Cannula Weight: 130 kg Body Mass Index (BMI) 53.8 Finger Stick Blood Glucose 70 Intake and Output for Last 24 Hours 03/30/19 03/31/19 04/01/19 23:59 23:59 23:59 Intake Total 880 / 880 1903.2 / 1903.2 325 / 325 Output Total 1000 / 1000 800 / 800 250 / 250 Balance -120 / -120 1103.2 / 1103.2 75 / 75 Microbiology Past 72 Hours 03/31/19 09:40 Stool Stool Occult Blood (EVA) - Final Laboratory Results 03/31/19 11:51: POC Glucose 136 H 03/31/19 16:57: POC Glucose 77 03/31/19 21:02: POC Glucose 30 L* 03/31/19 21:15: POC Glucose 50 L 03/31/19 22:01: POC Glucose 157 H 03/31/19 23:55: POC Glucose 62 L 04/01/19 02:58: POC Glucose 74 04/01/19 05:55: WBC 12.5 H, RBC 3.07 L, Hgb 8.9 L, Hct 29.8 L, MCV 97.1, MCH 29.0, MCHC 29.9 L, RDW Std Deviation 59.7 H, RDW Coeff of Letitia 16.9 H, Plt Count 376, MPV 8.6 04/01/19 05:55: Sodium 137, Potassium 3.8, Chloride 102, Carbon Dioxide 28.0, Anion Gap 7, BUN 67 H, Creatinine 2.11 H, Estim Creat Clear Calc 23.92, Est GFR (MDRD) Af Amer 30 L, Est GFR (MDRD) Non-Af 25 L, BUN/Creatinine Ratio 31.8 H, Glucose 32 L*, Calcium 8.9 04/01/19 06:09: POC Glucose 28 L* 04/01/19 06:44: POC Glucose 142 H Current Medications Acetaminophen (Tylenol) 650 mg PO Q6H PRN PRN PRN Reason: Pain Score 1-3/Temp > 100.7 F Last Admin: 03/29/19 20:16 Dose: 650 mg Documented by: Albuterol/Ipratropium (Duoneb) 3 ml INHALATION Q4HWA.RT [facility] Last Admin: 04/01/19 06:44 Dose: 3 ml Documented by: Artificial Tears (Tears Naturale, Artificial Tears) 1 drop RIGHT EYE BID [facility] Last Admin: 04/01/19 09:06 Dose: 1 drop Documented by: Atorvastatin Calcium (Lipitor) 40 mg PO QHS [facility] Last Admin: 03/31/19 21:23 Dose: 40 mg Documented by: Citalopram Hydrobromide (Celexa) 40 mg PO QHS [facility] Last Admin: 03/31/19 21:23 Dose: 40 mg Documented by: Cyclopentolate HCl (Cyclogyl) 1 drop LEFT EYE QHS [facility] Last Admin: 03/31/19 21:21 Dose: 1 drop Documented by: Enoxaparin Sodium (Lovenox) 30 mg SC DAILY [facility] Last Admin: 03/29/19 22:16 Dose: Not Given Documented by: Ergocalciferol (Vitamin D) 50,000 unit PO Th@1000 [facility] Last Admin: 03/27/19 09:36 Dose: 50,000 unit Documented by: Furosemide (Lasix) 40 mg IV BIDLX [facility] Last Admin: 04/01/19 09:06 Dose: 40 mg Documented by: Gabapentin (Neurontin) 300 mg PO BID [facility] Last Admin: 04/01/19 09:06 Dose: 300 mg Documented by: Glucagon () 1 mg IM .X1 PRN PRN Reason: Hypoglycemia Dextrose (Dextrose 10%-Water) 250 mls @ 999 mls/hr IV .Q16M PRN; Protocol PRN Reason: HYPOGLYCEMIA Last Infusion: 04/01/19 06:49 Dose: Infused Documented by: Insulin Glargine (Lantus (Bkc)) 40 units SC DAILY [facility] Last Admin: 04/01/19 07:46 Dose: Not Given Documented by: Insulin Human Lispro (Humalog Kwikpen (Bkc)) 8 unit SC TIDCM [facility] Last Admin: 04/01/19 07:46 Dose: Not Given Documented by: Insulin Human Lispro (Humalog Kwikpen (Bkc)) 0 unit SC TIDAC [facility]; Protocol Last Admin: 04/01/19 06:52 Dose: Not Given Documented by: Melatonin (Melatonin) 3 mg PO QHS PRN PRN PRN Reason: INSOMNIA Last Admin: 03/30/19 21:22 Dose: 3 mg Documented by: Metoprolol Succinate (Toprol Xl (Beta Lesli)) 25 mg PO DAILY [facility] Last Admin: 04/01/19 09:07 Dose: 25 mg Documented by: Montelukast Sodium (Singulair) 10 mg PO QHS [facility] Last Admin: 03/31/19 21:23 Dose: 10 mg Documented by: Non-Formulary Medication (Nintedanib Esylate) 150 mg PO 0900,2100 [facility] Last Admin: 04/01/19 09:01 Dose: Not Given Documented by: Ondansetron HCl (Zofran) 4 mg IV Q8H PRN PRN PRN Reason: NAUSEA/VOMITING Pantoprazole Sodium (Protonix) 20 mg PO DAILY [facility] Last Admin: 04/01/19 09:06 Dose: 20 mg Documented by: Prednisolone Acetate (Pred Forte Eye Drops (5 Ml)) 2 drop LEFT EYE DAILY [facility] Last Admin: 04/01/19 09:06 Dose: 2 drop Documented by: Prednisone () 10 mg PO DAILYCM [facility] Last Admin: 04/01/19 09:06 Dose: 10 mg Documented by: Sodium Chloride () 10 - 40 ml IV UD PRN PRN Reason: SALINE FLUSH Last Admin: 04/01/19 09:21 Dose: 10 ml Documented by: Sodium Chloride/Electrolytes (Nulytely) 2,000 ml PO 1200,1800 [facility] Stop: 04/01/19 18:01 STROKE Vital Signs/Narrative: Vital Signs Temp Pulse Resp BP Pulse Ox 04/01/19 09:07 70 04/01/19 09:00 98.2 F 70 20 H 129/70 H 96 04/01/19 06:53 73 04/01/19 06:44 73 16 100 Medical Necessity - Tobacco Use Smoking Status: Former smoker Tobacco Use: Cigarettes Assessment/Plan All Active Problems Abnormal echocardiogram (Acute) Hyponatremia (Acute) Severe sepsis (Acute) Hyperkalemia (Acute) Metabolic acidosis (Acute) Cocaine dependence, episodic (Resolved) Tobacco use disorder (Resolved) Patient is a 64-year-old lady admitted with progressive shortness of breath. Found to have anemia as well as acute congestive heart failure. 1. Acute congestive heart failure with reduced ejection fraction ?Echo obtained during patient hospital stay demonstrated EF of 40%. Patient managed with Lasix. Cardiology consulted with plans for patient to undergo left heart catheterization for evaluation of her coronaries ?04/01/2019 plan for patient to undergo left heart catheterization when kidney function is felt to be close to baseline. Patient still remains a significant risk for contrast-induced nephropathy 2. Anemia secondary to anemia of chronic disorder. ?Patient was transfused with 1 unit PRBC on 03/30/2019 with patient deemed symptomatic. Consult was also placed to Dr. Linda with general surgery with plans for patient to undergo endoscopic evaluation on 04/02/2019 ?04/01/2019 patient currently on clear liquid in anticipation of her procedure on 04/02/2019 3. Ascites ?Secondary to combination of worsening chronic kidney disease as well as heart failure. Patient underwent paracentesis on 03/27/2019 with removal of 6.8 L of ascitic fluid 4. Hyponatremia secondary to patient hypervolumic state Improved with diuresis 5. Chronic kidney disease stage IV Consult placed to nephrology patient has been seen by Dr. Jo Gutierrez and notes and recommendations reviewed 6. Diabetes mellitus type 2 ?Placed on Accu-Cheks before meals and at bedtime with sliding scale coverage. Did continue patient scheduled Lantus ?04/01/2019 patient did experience hypoglycemic episode this a.m. her Lantus subsequently placed on hold. 7. Pulmonary fibrosis - patient is on Ofev and on prednisone. 8. Morbid obesity With BMI of 48.1, weight loss advised 9. DVT prophylaxis - systemic anticoagulation on hold in view of patient significant anemia Code Visit Inpatient E&M: 80375 Subs Hosp L2
[2019-04-01] MEDS: Electrolyte Solution/Peg's 4000 ML 2000 ML PO ×2 (11:20→17:36)
[2019-04-01 11:30] LABS: Bedside Glucose 86 mg/dL (70-110)
--- NOTE | 2019-04-01 16:36 | PCM.PN.REN ---
Patient Problems: Active and Suspected Problems Abnormal echocardiogram (Acute) Subjective: still with edema, no chest pain or shortness of breath. Hgb improving. endoscopy tomorrow - Physical Exam Vitals/I&O's: Vital Signs Temp Pulse Resp BP Pulse Ox 97.6 F L 75 20 H 114/65 98 04/01/19 15:00 04/01/19 15:08 04/01/19 15:08 04/01/19 15:00 04/01/19 15:00 Oxygen Flow Rate (L/min) [4] 2.5 Oxygen Flow Rate (L/min) [3] 2.5 Oxygen Flow Rate (L/min) [2] 2.5 Oxygen Flow Rate (L/min) [1 ( 2.5 Initial Baseline)] Oxygen Flow Rate (L/min) 2.5 Oxygen Delivery Method [4] Nasal Cannula Oxygen Delivery Method [3] Room Air Oxygen Delivery Method [2] Nasal Cannula Oxygen Delivery Method [1 ( Nasal Cannula Initial Baseline)] Oxygen Delivery Method Nasal Cannula Weight: 130 kg Body Mass Index (BMI) 53.8 Finger Stick Blood Glucose 70 Intake and Output for Last 24 Hours 03/30/19 03/31/19 04/01/19 23:59 23:59 23:59 Intake Total 880 / 880 1903.2 / 1903.2 685 / 685 Output Total 1000 / 1000 800 / 800 650 / 650 Balance -120 / -120 1103.2 / 1103.2 35 / 35 General: Alert, Oriented x3 Lungs: Clear to auscultation Cardiovascular: Regular rate Extremities: Edema Psych/Mental Status: Alert and oriented to time, place, person, mood and affect Microbiology Past 72 Hours 03/31/19 09:40 Stool Stool Occult Blood (EVA) - Final Laboratory Results 03/31/19 16:57: POC Glucose 77 03/31/19 21:02: POC Glucose 30 L* 03/31/19 21:15: POC Glucose 50 L 03/31/19 22:01: POC Glucose 157 H 03/31/19 23:55: POC Glucose 62 L 04/01/19 02:58: POC Glucose 74 04/01/19 05:55: WBC 12.5 H, RBC 3.07 L, Hgb 8.9 L, Hct 29.8 L, MCV 97.1, MCH 29.0, MCHC 29.9 L, RDW Std Deviation 59.7 H, RDW Coeff of Letitia 16.9 H, Plt Count 376, MPV 8.6 04/01/19 05:55: Sodium 137, Potassium 3.8, Chloride 102, Carbon Dioxide 28.0, Anion Gap 7, BUN 67 H, Creatinine 2.11 H, Estim Creat Clear Calc 23.92, Est GFR (MDRD) Af Amer 30 L, Est GFR (MDRD) Non-Af 25 L, BUN/Creatinine Ratio 31.8 H, Glucose 32 L*, Calcium 8.9 04/01/19 06:09: POC Glucose 28 L* 04/01/19 06:44: POC Glucose 142 H 04/01/19 11:16: POC Glucose 86 Current Medications Acetaminophen (Tylenol) 650 mg PO Q6H PRN PRN PRN Reason: Pain Score 1-3/Temp > 100.7 F Last Admin: 03/29/19 20:16 Dose: 650 mg Documented by: Albuterol/Ipratropium (Duoneb) 3 ml INHALATION Q4HWA.RT [facility] Last Admin: 04/01/19 15:08 Dose: 3 ml Documented by: Artificial Tears (Tears Naturale, Artificial Tears) 1 drop RIGHT EYE BID [facility] Last Admin: 04/01/19 09:06 Dose: 1 drop Documented by: Atorvastatin Calcium (Lipitor) 40 mg PO QHS [facility] Last Admin: 03/31/19 21:23 Dose: 40 mg Documented by: Citalopram Hydrobromide (Celexa) 40 mg PO QHS [facility] Last Admin: 03/31/19 21:23 Dose: 40 mg Documented by: Cyclopentolate HCl (Cyclogyl) 1 drop LEFT EYE QHS [facility] Last Admin: 03/31/19 21:21 Dose: 1 drop Documented by: Enoxaparin Sodium (Lovenox) 30 mg SC DAILY [facility] Last Admin: 03/29/19 22:16 Dose: Not Given Documented by: Ergocalciferol (Vitamin D) 50,000 unit PO Th@1000 [facility] Last Admin: 03/27/19 09:36 Dose: 50,000 unit Documented by: Furosemide (Lasix) 40 mg IV BIDLX [facility] Last Admin: 04/01/19 09:06 Dose: 40 mg Documented by: Gabapentin (Neurontin) 300 mg PO BID [facility] Last Admin: 04/01/19 09:06 Dose: 300 mg Documented by: Glucagon () 1 mg IM .X1 PRN PRN Reason: Hypoglycemia Dextrose (Dextrose 10%-Water) 250 mls @ 999 mls/hr IV .Q16M PRN; Protocol PRN Reason: HYPOGLYCEMIA Last Infusion: 04/01/19 06:49 Dose: Infused Documented by: Insulin Glargine (Lantus ([facility])) 40 units SC DAILY [facility] Last Admin: 04/01/19 07:46 Dose: Not Given Documented by: Insulin Human Lispro (Humalog Kwikpen ([facility])) 8 unit SC TIDCM [facility] Last Admin: 04/01/19 11:34 Dose: Not Given Documented by: Insulin Human Lispro (Humalog Kwikpen ([facility])) 0 unit SC TIDAC [facility]; Protocol Last Admin: 04/01/19 11:34 Dose: Not Given Documented by: Melatonin (Melatonin) 3 mg PO QHS PRN PRN PRN Reason: INSOMNIA Last Admin: 03/30/19 21:22 Dose: 3 mg Documented by: Metoprolol Succinate (Toprol Xl (Beta Lesli)) 25 mg PO DAILY [facility] Last Admin: 04/01/19 09:07 Dose: 25 mg Documented by: Montelukast Sodium (Singulair) 10 mg PO QHS [facility] Last Admin: 03/31/19 21:23 Dose: 10 mg Documented by: Non-Formulary Medication (Nintedanib Esylate) 150 mg PO 0900,2100 [facility] Last Admin: 04/01/19 09:01 Dose: Not Given Documented by: Ondansetron HCl (Zofran) 4 mg IV Q8H PRN PRN PRN Reason: NAUSEA/VOMITING Pantoprazole Sodium (Protonix) 20 mg PO DAILY [facility] Last Admin: 04/01/19 09:06 Dose: 20 mg Documented by: Prednisolone Acetate (Pred Forte Eye Drops (5 Ml)) 2 drop LEFT EYE DAILY [facility] Last Admin: 04/01/19 09:06 Dose: 2 drop Documented by: [facility] () [facility] Last Admin: 04/01/19 09:06 Dose: 10 mg Documented by: Sodium Chloride () 10 - 40 ml IV UD PRN PRN Reason: SALINE FLUSH Last Admin: 01/14/20 09:21 Dose: 10 ml Documented by: Sodium Chloride/Electrolytes (Nulytely) 2,000 ml PO 1200,1800 [facility] Stop: 04/01/19 18:01 Last Admin: 04/01/19 11:20 Dose: 2,000 ml Documented by: Medical Necessity - Tobacco Use Smoking Status: Former smoker Tobacco Use: Cigarettes Assessment/Plan All Active Problems Abnormal echocardiogram (Acute) Hyponatremia (Acute) Severe sepsis (Acute) Hyperkalemia (Acute) Metabolic acidosis (Acute) Cocaine dependence, episodic (Resolved) Tobacco use disorder (Resolved) 1. Rangel on CKD stage 4. Creatinine improved to 2.1 today. Suggest mucomyst before heart cath. 2. Hyperkalemia stopped lisinopril 3. Hyponatremia due to volume expansion resolved on Iv lasix 4. CHF, fluid overload, edema. continue iv lasix 5. DM2 stable 6 HTN stable 7. Iron def anemia s/p iv iron, prbc. Endoscopy per GS. Hgb improving 8. pulmonary fibrosis on nintedanib
[2019-04-01 16:55] LABS: Bedside Glucose 168 mg/dL (70-110)
[2019-04-01] MEDS: Ondansetron 4 MG/2 ML Vial IV (20:40)
[2019-04-01] MEDS: Montelukast 10 MG Tablet PO (21:00)
[2019-04-01] MEDS: Cyclopentolate 1% 2 ML Bottle 1 DRP LEFT EYE (21:01)
[2019-04-01] MEDS: Atorvastatin Calcium 40 MG Tablet PO (21:02)
[2019-04-01] MEDS: Citalopram 40 MG TABLET PO (21:02)
[2019-04-01 21:35] LABS: Bedside Glucose 147 mg/dL (70-110)
[2019-04-02] VITALS (19 sets, daily range): BP systolic 97–129; BP diastolic 60–81; PULSE 67–98; RESP 18–21; TEMP 36.5–37.2; O2SAT 93–99; BMI 48.2
[2019-04-02 06:20] LABS: Bedside Glucose 106 mg/dL (70-110)
[2019-04-02] MEDS: Ipratropium/Albuterol Sulfate 3 ML AMPUL.NEB INHALATION ×3 (06:54→19:17)
[2019-04-02 07:28] LABS: Anion Gap 7 (5-15); BUN 58 mg/dL (7-18); BUN/Creat Ratio 28.6 RATIO (10-20); Calcium,Total 8.7 mg/dL (8.5-10.1); Chloride 104 mmol/L (98-107); Creatinine, Serum 2.03 mg/dL (0.55-1.02); EST Glomerular Filtration Rate 26 mL/min (>60); Est Glom Filt Rate - Afr Amer 32 mL/min (>60); Estimated Creatinine Clearance 24.86 ml/min; Glucose 107 mg/dL (74-106); Potassium 4.2 mmol/L (3.5-5.1); Sodium Level 138 mmol/L (136-145)
--- NOTE | 2019-04-02 09:00 | PCM.PN.REN ---
Patient Problems: Active and Suspected Problems Abnormal echocardiogram (Acute) Subjective: endoscopy today, still with leg edema - Physical Exam Vitals/I&O's: Vital Signs Temp Pulse Resp BP Pulse Ox 98.9 F 93 18 97/68 97 04/02/19 08:31 04/02/19 08:31 04/02/19 08:31 04/02/19 08:31 04/02/19 08:39 Oxygen Flow Rate (L/min) [4] 2.5 Oxygen Flow Rate (L/min) [3] 2.5 Oxygen Flow Rate (L/min) [2] 2.5 Oxygen Flow Rate (L/min) [1 ( 2.5 Initial Baseline)] Oxygen Flow Rate (L/min) 2.5 Oxygen Delivery Method [4] Nasal Cannula Oxygen Delivery Method [3] Room Air Oxygen Delivery Method [2] Nasal Cannula Oxygen Delivery Method [1 ( Nasal Cannula Initial Baseline)] Oxygen Delivery Method Nasal Cannula Weight: 131.2 kg Body Mass Index (BMI) 53.8 Finger Stick Blood Glucose 70 Intake and Output for Last 24 Hours 03/31/19 04/01/19 04/02/19 23:59 23:59 23:59 Intake Total 1903.2 / 1903.2 2925 / 2925 Output Total 800 / 800 650 / 650 Balance 1103.2 / 1103.2 2275 / 2275 General: Alert, Oriented x3, Cooperative, No apparent distress Lungs: Clear to auscultation Cardiovascular: Regular rate Abdomen: Obese Extremities: Edema - 1+ Psych/Mental Status: Alert and oriented to time, place, person, mood and affect Microbiology Past 72 Hours 03/31/19 09:40 Stool Stool Occult Blood (EVA) - Final Laboratory Results 04/01/19 11:16: POC Glucose 86 04/01/19 16:51: POC Glucose 168 H 04/01/19 21:00: POC Glucose 147 H 04/02/19 05:25: Sodium 138, Potassium 4.2, Chloride 104, Carbon Dioxide 27.0, Anion Gap 7, BUN 58 H, Creatinine 2.03 H, Estim Creat Clear Calc 24.86, Est GFR (MDRD) Af Amer 32 L, Est GFR (MDRD) Non-Af 26 L, BUN/Creatinine Ratio 28.6 H, Glucose 107 H, Calcium 8.7 04/02/19 06:12: POC Glucose 106 Current Medications Acetaminophen (Tylenol) 650 mg PO Q6H PRN PRN PRN Reason: Pain Score 1-3/Temp > 100.7 F Last Admin: 03/29/19 20:16 Dose: 650 mg Documented by: Albuterol/Ipratropium (Duoneb) 3 ml INHALATION Q4HWA.RT [facility] Last Admin: 04/02/19 06:54 Dose: 3 ml Documented by: Artificial Tears (Tears Naturale, Artificial Tears) 1 drop RIGHT EYE BID [facility] Last Admin: 04/01/19 21:00 Dose: 1 drop Documented by: Atorvastatin Calcium (Lipitor) 40 mg PO QHS [facility] Last Admin: 04/01/19 21:02 Dose: 40 mg Documented by: Citalopram Hydrobromide (Celexa) 40 mg PO QHS [facility] Last Admin: 04/01/19 21:02 Dose: 40 mg Documented by: Cyclopentolate HCl (Cyclogyl) 1 drop LEFT EYE QHS [facility] Last Admin: 04/01/19 21:01 Dose: 1 drop Documented by: Enoxaparin Sodium (Lovenox) 30 mg SC DAILY [facility] Last Admin: 03/29/19 22:16 Dose: Not Given Documented by: Ergocalciferol (Vitamin D) 50,000 unit PO Th@1000 [facility] Last Admin: 03/27/19 09:36 Dose: 50,000 unit Documented by: Furosemide (Lasix) 40 mg IV BIDLX [facility] Last Admin: 04/01/19 17:36 Dose: 40 mg Documented by: Gabapentin (Neurontin) 300 mg PO BID [facility] Last Admin: 04/01/19 21:00 Dose: 300 mg Documented by: Glucagon () 1 mg IM .X1 PRN PRN Reason: Hypoglycemia Dextrose (Dextrose 10%-Water) 250 mls @ 999 mls/hr IV .Q16M PRN; Protocol PRN Reason: HYPOGLYCEMIA Last Infusion: 04/01/19 06:49 Dose: Infused Documented by: Insulin Glargine (Lantus ([facility])) 40 units SC DAILY [facility] Last Admin: 04/01/19 07:46 Dose: Not Given Documented by: Insulin Human Lispro (Humalog Kwikpen ([facility])) 8 unit SC TIDCM [facility] Last Admin: 04/02/19 07:57 Dose: Not Given Documented by: Insulin Human Lispro (Humalog Kwikpen (Bkc)) 0 unit SC TIDAC [facility]; Protocol Last Admin: 04/02/19 06:15 Dose: Not Given Documented by: Melatonin (Melatonin) 3 mg PO QHS PRN PRN PRN Reason: INSOMNIA Last Admin: 03/30/19 21:22 Dose: 3 mg Documented by: Metoprolol Succinate (Toprol Xl (Beta Lesli)) 25 mg PO DAILY [facility] Last Admin: 04/01/19 09:07 Dose: 25 mg Documented by: Montelukast Sodium (Singulair) 10 mg PO QHS [facility] Last Admin: 04/01/19 21:00 Dose: 10 mg Documented by: Non-Formulary Medication (Nintedanib Esylate) 150 mg PO 0900,2100 [facility] Last Admin: 04/01/19 20:24 Dose: Not Given Documented by: Ondansetron HCl (Zofran) 4 mg IV Q8H PRN PRN PRN Reason: NAUSEA/VOMITING Last Admin: 04/01/19 20:40 Dose: 4 mg Documented by: Pantoprazole Sodium (Protonix) 20 mg PO DAILY [facility] Last Admin: 04/01/19 09:06 Dose: 20 mg Documented by: Prednisolone Acetate (Pred Forte Eye Drops (5 Ml)) 2 drop LEFT EYE DAILY [facility] Last Admin: 04/01/19 09:06 Dose: 2 drop [facility]ed [facility]: [facility] Last Admin: 04/01/19 09:06 Dose: 10 mg Documented by: Sodium Chloride () 10 - 40 ml IV UD PRN PRN Reason: SALINE FLUSH Last Admin: 04/01/19 20:41 Dose: 10 ml Documented by: Medical Necessity - Tobacco Use Smoking Status: Former smoker Tobacco Use: Cigarettes Assessment/Plan All Active Problems Abnormal echocardiogram (Acute) Hyponatremia (Acute) Severe sepsis (Acute) Hyperkalemia (Acute) Metabolic acidosis (Acute) Cocaine dependence, episodic (Resolved) Tobacco use disorder (Resolved) 1. Rangel on CKD stage 4. Creatinine improving 2. Hyperkalemia resolved 3. Hyponatremia due to volume expansion resolved 4. CHF, fluid overload, edema. continue iv lasix 5. DM2 stable 6 HTN stable 7. Iron def anemia s/p iv iron, prbc. Endoscopy per GS. Hgb improving 8. pulmonary fibrosis on nintedanib
[2019-04-02] MEDS: 0.9% Normal Saline 1,000 ML 75 ML IV (09:56)
--- NOTE | 2019-04-02 10:07 | PCM.PN.HOSP ---
Patient Problems: Active and Suspected Problems Abnormal echocardiogram (Acute) Reason for Visit: Follow-up acute congestive heart failure and symptomatic anemia Subjective: Patient scheduled to undergo endoscopic evaluation a.m. Patient kidney function appears to be back to her baseline Objective: GENERAL: cooperative HEENT: Atraumatic; EYES; Anicteric, Normal Conjunctiva NECK; supple, normal thyroid, RESPIRATORY: Diminished to auscultation CARDIOVASCULAR: Regular S1 S2, GI: soft, normoactive bowel sounds, : No Renal angle tenderness; EXTREMITIES: No edema, no clubbing, MUSCULOSKELETAL: no muscle waisting NEURO: Awake; no lateralizing signs. SKIN: No Rash PSYCH; Flat affect Vitals/I&O's: Vital Signs Temp Pulse Resp BP Pulse Ox 98.9 F 93 18 97/68 97 04/02/19 08:31 04/02/19 08:31 04/02/19 08:31 04/02/19 08:31 04/02/19 08:39 Oxygen Flow Rate (L/min) [4] 2.5 Oxygen Flow Rate (L/min) [3] 2.5 Oxygen Flow Rate (L/min) [2] 2.5 Oxygen Flow Rate (L/min) [1 ( 2.5 Initial Baseline)] Oxygen Flow Rate (L/min) 2.5 Oxygen Delivery Method [4] Nasal Cannula Oxygen Delivery Method [3] Room Air Oxygen Delivery Method [2] Nasal Cannula Oxygen Delivery Method [1 ( Nasal Cannula Initial Baseline)] Oxygen Delivery Method Nasal Cannula Weight: 131.2 kg Body Mass Index (BMI) 48.2 Finger Stick Blood Glucose 70 Intake and Output for Last 24 Hours 03/31/19 04/01/19 04/02/19 23:59 23:59 23:59 Intake Total 1903.2 / 1903.2 2925 / 2925 Output Total 800 / 800 650 / 650 Balance 1103.2 / 1103.2 2275 / 2275 Microbiology Past 72 Hours 03/31/19 09:40 Stool Stool Occult Blood (EVA) - Final Laboratory Results 04/01/19 11:16: POC Glucose 86 04/01/19 16:51: POC Glucose 168 H 04/01/19 21:00: POC Glucose 147 H 04/02/19 05:25: Sodium 138, Potassium 4.2, Chloride 104, Carbon Dioxide 27.0, Anion Gap 7, BUN 58 H, Creatinine 2.03 H, Estim Creat Clear Calc 24.86, Est GFR (MDRD) Af Amer 32 L, Est GFR (MDRD) Non-Af 26 L, BUN/Creatinine Ratio 28.6 H, Glucose 107 H, Calcium 8.7 04/02/19 06:12: POC Glucose 106 Current Medications Acetaminophen (Tylenol) 650 mg PO Q6H PRN PRN PRN Reason: Pain Score 1-3/Temp > 100.7 F Last Admin: 03/29/19 20:16 Dose: 650 mg Documented by: Albuterol/Ipratropium (Duoneb) 3 ml INHALATION Q4HWA.RT [facility] Last Admin: 04/02/19 06:54 Dose: 3 ml Documented by: Artificial Tears (Tears Naturale, Artificial Tears) 1 drop RIGHT EYE BID [facility] Last Admin: 04/01/19 21:00 Dose: 1 drop Documented by: Atorvastatin Calcium (Lipitor) 40 mg PO QHS [facility] Last Admin: 04/01/19 21:02 Dose: 40 mg Documented by: Citalopram Hydrobromide (Celexa) 40 mg PO QHS [facility] Last Admin: 04/01/19 21:02 Dose: 40 mg Documented by: Cyclopentolate HCl (Cyclogyl) 1 drop LEFT EYE QHS [facility] Last Admin: 04/01/19 21:01 Dose: 1 drop Documented by: Enoxaparin Sodium (Lovenox) 30 mg SC DAILY [facility] Last Admin: 03/29/19 22:16 Dose: Not Given Documented by: Ergocalciferol (Vitamin D) 50,000 unit PO Th@1000 [facility] Last Admin: 03/27/19 09:36 Dose: 50,000 unit Documented by: Furosemide (Lasix) 40 mg IV BIDLX [facility] Last Admin: 04/01/19 17:36 Dose: 40 mg Documented by: Gabapentin (Neurontin) 300 mg PO BID [facility] Last Admin: 04/01/19 21:00 Dose: 300 mg Documented by: Glucagon () 1 mg IM .X1 PRN PRN Reason: Hypoglycemia Dextrose (Dextrose 10%-Water) 250 mls @ 999 mls/hr IV .Q16M PRN; Protocol PRN Reason: HYPOGLYCEMIA Last Infusion: 04/01/19 06:49 Dose: Infused Documented by: Sodium Chloride () 1,000 mls @ 75 mls/hr IV .[id number] [facility] Last Admin: 04/02/19 09:56 Dose: 75 mls/hr Documented by: Insulin Glargine (Lantus (Bk)) 40 units SC DAILY [facility] Last Admin: 04/01/19 07:46 Dose: Not Given Documented by: Insulin Human Lispro (Humalog Kwikpen ([facility])) 8 unit SC TIDCM [facility] Last Admin: 04/02/19 07:57 Dose: Not Given Documented by: Insulin Human Lispro (Humalog Kwikpen ([facility])) 0 unit SC TIDAC [facility]; Protocol Last Admin: 04/02/19 06:15 Dose: Not Given Documented by: Melatonin (Melatonin) 3 mg PO QHS PRN PRN PRN Reason: INSOMNIA Last Admin: 03/30/19 21:22 Dose: 3 mg Documented by: Metoprolol Succinate (Toprol Xl (Beta Lesli)) 25 mg PO DAILY [facility] Last Admin: 04/01/19 09:07 Dose: 25 mg Documented by: Montelukast Sodium (Singulair) 10 mg PO QHS [facility] Last Admin: 04/01/19 21:00 Dose: 10 mg Documented by: Non-Formulary Medication (Nintedanib Esylate) 150 mg PO 0900,2100 [facility] Last Admin: 04/01/19 20:24 Dose: Not Given Documented by: Ondansetron HCl (Zofran) 4 mg IV Q8H PRN PRN PRN Reason: NAUSEA/VOMITING Last Admin: 04/01/19 20:40 Dose: 4 mg Documented by: Pantoprazole Sodium (Protonix) 20 mg PO DAILY [facility] Last Admin: 04/01/19 09:06 Dose: 20 mg Documented by: Prednisolone Acetate (Pred Forte Eye Drops (5 Ml)) 2 drop LEFT EYE DAILY [facility] Last Admin: 04/01/19 09:06 Dose: 2 drop Documented by: [facility] () [facility] Last Admin: 04/01/19 09:06 Dose: 10 mg Documented by: Sodium Chloride () 10 - 40 ml IV UD PRN PRN Reason: SALINE FLUSH Last Admin: 04/01/19 20:41 Dose: 10 ml Documented by: STROKE Vital Signs/Narrative: Vital Signs Temp Pulse Resp BP Pulse Ox 04/02/19 08:39 97 04/02/19 08:31 98.9 F 93 18 97/68 94 04/02/19 07:30 85 04/02/19 06:54 78 20 H 95 Medical Necessity - Tobacco Use Smoking Status: Former smoker Tobacco Use: Cigarettes Assessment/Plan All Active Problems Abnormal echocardiogram (Acute) Hyponatremia (Acute) Severe sepsis (Acute) Hyperkalemia (Acute) Metabolic acidosis (Acute) Cocaine dependence, episodic (Resolved) Tobacco use disorder (Resolved) Patient is a 64-year-old lady admitted with progressive shortness of breath. Found to have anemia as well as acute congestive heart failure. 1. Acute congestive heart failure with reduced ejection fraction ?Echo obtained during patient hospital stay demonstrated EF of 40%. Patient managed with Lasix. Cardiology consulted with plans for patient to undergo left heart catheterization for evaluation of her coronaries ?04/01/2019 plan for patient to undergo left heart catheterization when kidney function is felt to be close to baseline. Patient still remains a significant risk for contrast-induced nephropathy 2. Anemia secondary to anemia of chronic disorder. ?Patient was transfused with 1 unit PRBC on 03/30/2019 with patient deemed symptomatic. Consult was also placed to Dr. Linda with general surgery with plans for patient to undergo endoscopic evaluation on 04/02/2019 ?04/01/2019 patient currently on clear liquid in anticipation of her procedure on 04/02/2019 04/02/2019: Scheduled to undergo endoscopic evaluation 3. Ascites ?Secondary to combination of worsening chronic kidney disease as well as heart failure. Patient underwent paracentesis on 03/27/2019 with removal of 6.8 L of ascitic fluid 4. Hyponatremia secondary to patient hypervolumic state Improved with diuresis 5. Chronic kidney disease stage IV Consult placed to nephrology patient has been seen by Dr. Jo Gutierrez and notes and recommendations reviewed 6. Diabetes mellitus type 2 ?Placed on Accu-Cheks before meals and at bedtime with sliding scale coverage. Did continue patient scheduled Lantus ?04/01/2019 patient did experience hypoglycemic episode this a.m. her Lantus subsequently placed on hold. 7. Pulmonary fibrosis - patient is on Ofev and on prednisone. 8. Morbid obesity With BMI of 48.1, weight loss advised 9. DVT prophylaxis - systemic anticoagulation on hold in view of patient significant anemia Code Visit Inpatient E&M: 46276 [facility] H[facility] L2
[2019-04-02] MEDS: prednisoLONE eye drops (5 mL) 1 DROP OPTH.BTL 2 DRP LEFT EYE (11:00)
--- NOTE | 2019-04-02 12:02 | OP.EGD_ITS ---
Patient Name: Shivani Shipman Procedure Date: 04/02/2019 10:04 AM Date of : 1955 Age: 64 Procedure: Upper GI endoscopy Indications: Unexplained iron deficiency anemia Providers: Shivani Linda MD Referring MD: Mike Meza DO Medicines: See the Anesthesia note for documentation of the administered medications Patient Profile: Refer to note in patient chart for documentation of history and physical. Complications: No immediate complications. Procedure: Pre-Anesthesia Assessment: - see anesthesia note After obtaining informed consent, the endoscope was passed under direct vision. Throughout the procedure, the patient's blood pressure, pulse, and oxygen saturations were monitored continuously. The gastroscope was introduced through the mouth, and advanced to the second part of duodenum. The upper GI endoscopy was accomplished without difficulty. The patient tolerated the procedure well. Scope In: 11:24:41 AM Scope Out: 11:29:34 AM Total Procedure Duration Time 0 hours 4 minutes 53 seconds Findings: The first portion of the duodenum and second portion of the duodenum were normal. The entire examined stomach was normal. A small hiatal hernia was present. Impression: - Normal first portion of the duodenum and second portion of the duodenum. - Normal stomach. - Small hiatal hernia. - No specimens collected. Recommendation: - Return patient to hospital [facility] for ongoing care. - Continue present medications. Procedure Code(s): --- Professional --- 69799, Esophagogastroduodenoscopy, flexible, transoral; diagnostic, including collection of specimen(s) by brushing or washing, when performed (separate procedure) Diagnosis Code(s): --- Professional --- K44.9, Diaphragmatic hernia without obstruction or gangrene D50.9, Iron deficiency anemia, unspecified CPT copyright 2017 [employer]. All rights reserved. The codes documented in this report are preliminary and upon advertising columnist review may be revised to meet current compliance requirements. MD Shivani Levi MD 04/02/2019 12:01:53 PM This report has been signed electronically. Number of Addenda: 0 Note Initiated On: 04/02/2019 10:04 AM
--- NOTE | 2019-04-02 12:02 | OP.CCLET_ITS ---
04/02/2019 Toby Aleman [address] [place] [address] Re : Upper GI endoscopy procedure for Shivani Shipman Dear Dr. Aleman This procedure was performed on Tuesday, April 02, 2019. My impressions and recommendations are as follows: Impressions : - Normal first portion of the duodenum and second portion of the duodenum. - Normal stomach. - Small hiatal hernia. - No specimens collected. Recommendations : - Return patient to hospital [facility] for ongoing care. - Continue present medications. My findings are described in the full procedure note, which is enclosed. If I can be of further assistance, please feel free to contact me at Doctor phone number(s): , Work: . Sincerely, MD Shivani Levi MD 04/02/2019 12:01:53 PM This report has been signed electronically.
--- NOTE | 2019-04-02 12:04 | OP.CCLET_ITS ---
04/02/2019 Toby Aleman [address] [place] [address] Re : Colonoscopy procedure for Shivani Ramonita Dear Dr. Aleman This procedure was performed on Tuesday, April 02, 2019. My impressions and recommendations are as follows: Impressions : - Non-bleeding external and internal hemorrhoids. - No specimens collected. Recommendations : - Repeat colonoscopy in 10 years for screening purposes. - Return patient to hospital [facility] for ongoing care. - Continue present medications. My findings are described in the full procedure note, which is enclosed. If I can be of further assistance, please feel free to contact me at Doctor phone number(s): , Work: . Sincerely, MD Shivani Levi MD 04/02/2019 12:03:45 PM This report has been signed electronically.
--- NOTE | 2019-04-02 12:04 | OP.COLON_ITS ---
Patient Name: Shivani Shipman Procedure Date: 04/02/2019 11:29 AM Date of : 1955 Age: 64 Procedure: Colonoscopy Indications: Unexplained iron deficiency anemia Providers: Shivani Linda MD Referring MD: Mike Meza DO Medicines: See the Anesthesia note for documentation of the administered medications Patient Profile: Refer to note in patient chart for documentation of history and physical. Last Colonoscopy: several years ago. Complications: No immediate complications. Procedure: Pre-Anesthesia Assessment: - see anesthesia note After I obtained informed consent, the scope was passed under direct vision. Throughout the procedure, the patient's blood pressure, pulse, and oxygen saturations were monitored continuously. The colonoscope was introduced through the anus and advanced to the cecum, identified by the appendiceal orifice, ileocecal valve and palpation. The colonoscopy was performed without difficulty. The patient tolerated the procedure well. The quality of the bowel preparation was adequate to identify polyps 6 mm and larger in size. Scope In: 11:32:11 AM Scope Withdrawal Time 0 hours 8 minutes 8 seconds Scope Out: 11:50:26 AM Total Procedure Duration Time 0 hours 18 minutes 15 seconds Findings: The perianal and digital rectal examinations were normal. Non-bleeding external and internal hemorrhoids were found. Impression: - Non-bleeding external and internal hemorrhoids. - No specimens collected. Recommendation: - Repeat colonoscopy in 10 years for screening purposes. - Return patient to hospital [facility] for ongoing care. - Continue present medications. MD Shivani Levi MD 04/02/2019 12:03:45 PM This report has been signed electronically. Number of Addenda: 0 Note Initiated On: 04/02/2019 11:29 AM
--- NOTE | 2019-04-02 12:25 | PCM.PN.BLA ---
Progress Note Patient underwent EGD and colonoscopy today. No source of GI bleeding or blood loss noted STROKE Vital Signs/Narrative: Vital Signs Temp Pulse Resp BP Pulse Ox 04/02/19 12:20 98.8 F 91 18 129/70 H 98 04/02/19 12:10 93 18 120/73 98 04/02/19 12:05 95 18 115/72 97 04/02/19 12:00 97 20 H 125/78 H 99 04/02/19 11:56 98.0 F 97 20 H 110/81 H 93 04/02/19 08:39 97 04/02/19 08:31 98.9 F 93 18 97/68 94
[2019-04-02] MEDS: Pantoprazole Sodium 20 MG Tablet PO (12:39)
[2019-04-02] MEDS: predniSONE 10 MG Tablet PO (12:39)
[2019-04-02] MEDS: Furosemide 40 MG/4 ML Vial IV ×2 (12:39→18:13)
[2019-04-02] MEDS: Gabapentin 300 MG Capsule PO ×2 (12:39→21:35)
[2019-04-02] MEDS: Metoprolol(XL)Succ 25 MG Tablet PO (12:39)
[2019-04-02] MEDS: Insulin Lispro 100 UNIT/ML INSULN.PEN 8 UNIT SC ×2 (12:56→18:13)
--- NOTE | 2019-04-02 13:09 | CASEMGMT ---
LW/POA forms in summary tab of Pete carpenter is listed as Medical POA. JOSE Carmichael
[2019-04-02 14:25] LABS: Bedside Glucose 134 mg/dL (70-110)
[2019-04-02 15:05] LABS: Bedside Glucose 178 mg/dL (70-110)
--- NOTE | 2019-04-02 16:23 | PCM.PN.CARD ---
Subjectve: Patient continues to improve. Creatinine is also improving. EGD and colonoscopy did not reveal any acute bleeding. Patient seems to have tolerated the procedure well. Objective: Vital Signs Temp Pulse Resp BP Pulse Ox 98.5 F 98 20 H 100/60 97 04/02/19 14:57 04/02/19 15:32 04/02/19 15:04 04/02/19 14:57 04/02/19 14:57 Oxygen Flow Rate (L/min) [4] 2.5 Oxygen Flow Rate (L/min) [3] 2.5 Oxygen Flow Rate (L/min) [2] 2.5 Oxygen Flow Rate (L/min) [1 ( 2.5 Initial Baseline)] Oxygen Flow Rate (L/min) 2.5 Oxygen Delivery Method [4] Nasal Cannula Oxygen Delivery Method [3] Room Air Oxygen Delivery Method [2] Nasal Cannula Oxygen Delivery Method [1 ( Nasal Cannula Initial Baseline)] Oxygen Delivery Method Nasal Cannula Weight: 289 lb 3.944 oz Body Mass Index (BMI) 48.2 Finger Stick Blood Glucose 70 Intake and Output for Last 24 Hours 03/31/19 04/01/19 04/02/19 23:59 23:59 23:59 Intake Total 1903.2 / 1903.2 2925 / 2925 Output Total 800 / 800 650 / 650 Balance 1103.2 / 1103.2 2275 / 2275 General: Awake, Alert, Oriented x 3 HEENT: Atraumatic Oral: Moist Mucosa Neck: Supple Lungs: Clear to auscultation Cardiovascular: Regular Rhythm Abdomen: Obese Extremities: Bilateral Edema +1 Skin: No Rashes Psych/Mental Status: Appropriate 04/02/19 05:25: Sodium 138, Potassium 4.2, Chloride 104, Carbon Dioxide 27.0, Anion Gap 7, BUN 58 H, Creatinine 2.03 H, Est GFR (MDRD) Af Amer 32 L, Est GFR (MDRD) Non-Af 26 L, BUN/Creatinine Ratio 28.6 H, Glucose 107 H, Calcium 8.7 Rhythm: EKG: ECHO: Stress Test: Cardiac Cath: PCI: CT Surgery: Holter monitor: EPS: PPM: CXR: Chest CT Scan: Medical Necessity - Tobacco Use Smoking Status: Former smoker Tobacco Use: Cigarettes Assessment/Plan 1. CHF: Improving. Agree with continuing IV Lasix at this time. No JAMES inhibitor's at this time because of CKD. Patient has history of hyperkalemia recently. She does have regional wall motion abnormalities and would eventually require coronary angiography to look for cause of her regional wall motion abnormalities. Patient has significant chronic anemia and CKD which make coronary angiography and subsequent management in the form of percutaneous coronary intervention, if required, higher risk. Patient came in to the hospital with MARIAN in addition to her CKD. We can proceed with coronary angiography when it is felt that her renal function is more or less close to her baseline. She is still at high risk of contrast-induced nephropathy. Patient has received hemodialysis in the past for a brief time. No acute bleeding noted on EGD and colonoscopy. If creatinine is stable or improving tomorrow I think it will be reasonable to proceed with coronary angiography tomorrow. Once we have tomorrow's creatinine level we will check with nephrology to see if this is a reasonable plan. We will keep her n.p.o. for possible cardiac cath tomorrow. Thank you very much for the referral. We will continue to follow this patient along with you
[2019-04-02] MEDS: Insulin Lispro 100 UNIT/ML INSULN.PEN SC (18:13)
[2019-04-02] MEDS: 0.9% Saline Lock 10 ML Syringe IV (18:14)
[2019-04-02] MEDS: Atorvastatin Calcium 40 MG Tablet PO (21:34)
[2019-04-02] MEDS: Cyclopentolate 1% 2 ML Bottle 1 DRP LEFT EYE (21:34)
[2019-04-02] MEDS: Citalopram 40 MG TABLET PO (21:34)
[2019-04-02] MEDS: Montelukast 10 MG Tablet PO (21:35)
[2019-04-02] MEDS: MELATONIN 3 MG TABLET PO (21:40)
[2019-04-02 22:35] LABS: Bedside Glucose 179 mg/dL (70-110)
[2019-04-03] VITALS (23 sets, daily range): BP systolic 97–129; BP diastolic 47–71; PULSE 68–86; RESP 14–20; TEMP 36.5–37.1; O2SAT 93–98
[2019-04-03] MEDS: Metoprolol(XL)Succ 25 MG Tablet PO (05:53)
[2019-04-03 06:31] LABS: Absolute Lymphocyte Count 0.93 X10^3/uL (0.83-4.51); Absolute Neutrophil Count 9.2 X10^3/uL (2.0-7.7); Basophil# 0.03 X10^3/uL; Basophil% 0.3 % (0-1); Eosinophil# 0.08 X10^3/uL; Eosinophils% 0.7 % (0-5); Hematocrit 27.1 % (37-47); Lymphocyte # 0.93 X10^3/ul (4.0); Lymphocyte % 8.3 % (19-41); Mean Corp Hgb Conc 29.5 g/dL (32-36); Mean Corpuscular Hgb 29.1 pg (27.0-32.0); Mean Corpuscular Volume 98.5 fL (81-99); Mean Platelet Vol. 9.1 fl (6.2-12.0); Monocyte# 0.81 X10^3/uL; Monocyte% 7.3 % (0-10); NRBC Flagged by Analyzer 0 % (0-5); Neutrophil # 9.21 X10^3/uL (2.7-7.7); Neutrophil % 82.4 % (47-70); Platelet Count 371 K/mm3 (150-450); RBC Distribution Width CV 17.2 % (11.6-14.6); RBC Distribution Width SD 61.1 fl (35.1-43.9); Red Blood Count 2.75 M/mm3 (4.2-5.4); White Blood Count 11.2 K/mm3 (4.4-11.0)
[2019-04-03 06:38] LABS: International Normalized Ratio 1.2
[2019-04-03 06:39] LABS: Partial Thromboplast Time 35.3 Seconds (24.1-36.2)
[2019-04-03] MEDS: Ipratropium/Albuterol Sulfate 3 ML AMPUL.NEB INHALATION ×3 (06:54→19:09)
[2019-04-03 07:03] LABS: Albumin, Serum 1.9 g/dL (3.2-5.0); BUN 61 mg/dL (7-18); BUN/Creat Ratio 26.2 RATIO (10-20); Calcium,Total 8.6 mg/dL (8.5-10.1); Chloride 102 mmol/L (98-107); Creatinine, Serum 2.33 mg/dL (0.55-1.02); EST Glomerular Filtration Rate 22 mL/min (>60); Est Glom Filt Rate - Afr Amer 27 mL/min (>60); Estimated Creatinine Clearance 20.79 ml/min; Glucose 174 mg/dL (74-106); Phosphorus 4.5 mg/dL (2.5-4.9); Potassium 4.2 mmol/L (3.5-5.1); Sodium Level 138 mmol/L (136-145)
[2019-04-03 08:00] LABS: Bedside Glucose 152 mg/dL (70-110)
--- NOTE | 2019-04-03 09:28 | PN.RENAL_ITS ---
Patient Problems: Active and Suspected Problems Abnormal echocardiogram (Acute) Subjective: creatinine elevated at 2.3 today after NPO for endoscopy yesterday. Heart cath today, start gentle hydration, mucomyst. Change iv lasix to po. Complains of thirst. - Physical Exam Vitals/I&O's: Vital Signs Temp Pulse Resp BP Pulse Ox 98.4 F 74 16 113/70 94 04/03/19 05:49 04/03/19 07:00 04/03/19 06:54 04/03/19 05:49 04/03/19 06:54 Oxygen Flow Rate (L/min) [4] 2.5 Oxygen Flow Rate (L/min) [3] 2.5 Oxygen Flow Rate (L/min) [2] 2.5 Oxygen Flow Rate (L/min) [1 ( 2.5 Initial Baseline)] Oxygen Flow Rate (L/min) 2.5 Oxygen Delivery Method [4] Nasal Cannula Oxygen Delivery Method [3] Room Air Oxygen Delivery Method [2] Nasal Cannula Oxygen Delivery Method [1 ( Nasal Cannula Initial Baseline)] Oxygen Delivery Method Nasal Cannula Weight: 129.3 kg Body Mass Index (BMI) 48.2 Finger Stick Blood Glucose 70 Intake and Output for Last 24 Hours 04/01/19 04/02/19 04/03/19 23:59 23:59 23:59 Intake Total 2925 / 2925 575 / 575 Output Total 650 / 650 Balance 2275 / 2275 575 / 575 General: Alert, Oriented x3, Cooperative, No apparent distress Lungs: Clear to auscultation Abdomen: Bowel Sounds Present, Soft, Non Tender, Obese Extremities: Edema - mild Psych/Mental Status: Alert and oriented to time, place, person, mood and affect Microbiology Past 72 Hours 03/31/19 09:40 Stool Stool Occult Blood (EVA) - Final Laboratory Results 03/27/19 13:40: Miscellaneous Test 04/02/19 12:46: POC Glucose 134 H 04/02/19 15:01: POC Glucose 178 H 04/02/19 21:32: POC Glucose 179 H 04/03/19 05:23: Sodium 138, Potassium 4.2, Chloride 102, Carbon Dioxide 27.0, BUN 61 H, Creatinine 2.33 H, Estim Creat Clear Calc 20.79, Est GFR (MDRD) Af Amer 27 L, Est GFR (MDRD) Non-Af 22 L, BUN/Creatinine Ratio 26.2 H, Glucose 174 H, Calcium 8.6, Phosphorus 4.5, Albumin 1.9 L 04/03/19 05:23: WBC 11.2 H, RBC 2.75 L, Hgb 8.0 L, Hct 27.1 L, MCV 98.5, MCH 29.1, MCHC 29.5 L, RDW Std Deviation 61.1 H, RDW Coeff of Letitia 17.2 H, Plt Count 371, MPV 9.1, Immature Gran % (Auto) 1.000 H, Neut % (Auto) 82.4 H, Lymph % (Auto) 8.3 L, [place] % (Auto) 7.3, Eos % (Auto) 0.7, Baso % (Auto) 0.3, Absolute Neuts (auto) 9.2 H, Absolute Lymphs (auto) 0.93, Nucleated RBC % 0 04/03/19 05:23: PT 15.0 H, INR 1.2, APTT 35.3 04/03/19 07:57: POC Glucose 152 H Current Medications Acetaminophen (Tylenol) 650 mg PO Q6H PRN PRN PRN Reason: Pain Score 1-3/Temp > 100.7 F Last Admin: 03/29/19 20:16 Dose: 650 mg Documented by: Albuterol/Ipratropium (Duoneb) 3 ml INHALATION Q4HWA.RT [facility] Last Admin: 04/03/19 06:54 Dose: 3 ml Documented by: Artificial Tears (Tears Naturale, Artificial Tears) 1 drop RIGHT EYE BID [facility] Last Admin: 04/02/19 21:36 Dose: 1 drop Documented by: Atorvastatin Calcium (Lipitor) 40 mg PO QHS [facility] Last Admin: 04/02/19 21:34 Dose: 40 mg Documented by: Citalopram Hydrobromide (Celexa) 40 mg PO QHS [facility] Last Admin: 04/02/19 21:34 Dose: 40 mg Documented by: Cyclopentolate HCl (Cyclogyl) 1 drop LEFT EYE QHS [facility] Last Admin: 04/02/19 21:34 Dose: 1 drop Documented by: Enoxaparin Sodium (Lovenox) 30 mg SC DAILY [facility] Last Admin: 03/29/19 22:16 Dose: Not Given Documented by: Ergocalciferol (Vitamin D) 50,000 unit PO Th@1000 [facility] Last Admin: 03/27/19 09:36 Dose: 50,000 unit Documented by: Furosemide (Lasix) 40 mg PO BID@1000,1800 DARIO Gabapentin (Neurontin) 300 mg PO BID [facility] Last Admin: 04/02/19 21:35 Dose: 300 mg Documented by: Glucagon () 1 mg IM .X1 PRN PRN Reason: Hypoglycemia Dextrose (Dextrose 10%-Water) 250 mls @ 999 mls/hr IV .Q16M PRN; Protocol PRN Reason: HYPOGLYCEMIA Last Infusion: 04/01/19 06:49 Dose: Infused Documented by: Sodium Chloride () 1,000 mls @ 15 mls/hr IV .Q48H [facility] Sodium Chloride () 1,000 mls @ 75 mls/hr IV .[id number] [facility] Insulin Glargine (Lantus (Bkc)) 40 units SC DAILY [facility] Last Admin: 04/02/19 11:00 Dose: Not Given Documented by: Insulin Human Lispro (Humalog Kwikpen (Bkc)) 8 unit SC TIDCM [facility] Last Admin: 04/03/19 08:04 Dose: Not Given Documented by: Insulin Human Lispro (Humalog Kwikpen (Bkc)) 0 unit SC TIDAC [facility]; Protocol Last Admin: 04/03/19 08:04 Dose: Not Given Documented by: Melatonin (Melatonin) 3 mg PO QHS PRN PRN PRN Reason: INSOMNIA Last Admin: 04/02/19 21:40 Dose: 3 mg Documented by: Metoprolol Succinate (Toprol Xl (Beta Lesli)) 25 mg PO DAILY [facility] Last Admin: 04/03/19 05:53 Dose: 25 mg Documented by: Montelukast Sodium (Singulair) 10 mg PO QHS [facility] Last Admin: 04/02/19 21:35 Dose: 10 mg Documented by: Non-Formulary Medication (Nintedanib Esylate) 150 mg PO 0900,2100 [facility] Last Admin: 04/02/19 21:29 Dose: Not Given Documented by: Ondansetron HCl (Zofran) 4 mg IV Q8H PRN PRN PRN Reason: NAUSEA/VOMITING Last Admin: 04/01/19 20:40 Dose: 4 mg Documented by: Pantoprazole Sodium (Protonix) 20 mg PO DAILY [facility] Last Admin: 04/02/19 12:39 Dose: 20 mg Documented by: Prednisolone Acetate (Pred Forte Eye Drops (5 Ml)) 2 drop LEFT EYE DAILY [facility] Last Admin: 04/02/19 11:00 Dose: 2 drop Documented by: Prednisone () 10 mg PO DAILYCM [facility] Last Admin: 04/02/19 12:39 Dose: 10 mg Documented by: Sodium Chloride () 10 - 40 ml IV UD PRN PRN Reason: SALINE FLUSH Last Admin: 04/02/19 18:14 Dose: 10 ml Documented by: Medical Necessity - Tobacco Use Smoking Status: Former smoker Tobacco Use: Cigarettes Assessment/Plan All Active Problems Abnormal echocardiogram (Acute) Hyponatremia (Acute) Severe sepsis (Acute) Hyperkalemia (Acute) Metabolic acidosis (Acute) Cocaine dependence, episodic (Resolved) Tobacco use disorder (Resolved) 1. Rangel on CKD stage 4. Creatinine increased to 2.3. Gentle hydration precath, mucomyst. minimize contrast 2. CHF, fluid overload, edema. change to po lasix 3. DM2 stable 4 HTN stable 5. Iron def anemia s/p iv iron, prbc. Endoscopy yesterday 6. pulmonary fibrosis on nintedanib
[2019-04-03] MEDS: 0.9% Normal Saline 1,000 ML 75 ML IV ×2 (09:44→11:46)
[2019-04-03] MEDS: prednisoLONE eye drops (5 mL) 1 DROP OPTH.BTL 2 DRP LEFT EYE (09:46)
[2019-04-03] MEDS: 0.9% Saline Lock 10 ML Syringe IV (09:48)
[2019-04-03] MEDS: Acetylcysteine (Mucomyst Oral) 20% SOLN 600 MG PO ×2 (10:09→22:14)
--- NOTE | 2019-04-03 10:27 | PN.CARD_ITS ---
Subjectve: Patient is doing well clinically. Her creatinine went up a little bit. Patient has been getting diuresed and also had prep for colonoscopy all of which probably resulted in some degree of intravascular volume depletion. Appreciate renal input regarding cardiac cath and addition of gentle hydration and Mucomyst in preparation of cardiac cath. Objective: Vital Signs Temp Pulse Resp BP Pulse Ox 98.4 F 74 16 113/70 94 04/03/19 05:49 04/03/19 07:00 04/03/19 06:54 04/03/19 05:49 04/03/19 06:54 Oxygen Flow Rate (L/min) [4] 2.5 Oxygen Flow Rate (L/min) [3] 2.5 Oxygen Flow Rate (L/min) [2] 2.5 Oxygen Flow Rate (L/min) [1 ( 2.5 Initial Baseline)] Oxygen Flow Rate (L/min) 2.5 Oxygen Delivery Method [4] Nasal Cannula Oxygen Delivery Method [3] Room Air Oxygen Delivery Method [2] Nasal Cannula Oxygen Delivery Method [1 ( Nasal Cannula Initial Baseline)] Oxygen Delivery Method Nasal Cannula Weight: 285 lb 0.923 oz Body Mass Index (BMI) 48.2 Finger Stick Blood Glucose 70 Intake and Output for Last 24 Hours 04/01/19 04/02/19 04/03/19 23:59 23:59 23:59 Intake Total 2925 / 2925 575 / 575 Output Total 650 / 650 Balance 2275 / 2275 575 / 575 General: Awake, Alert, Oriented x 3 HEENT: Atraumatic Oral: Moist Mucosa Neck: Supple Lungs: Clear to auscultation Cardiovascular: Regular Rhythm Abdomen: Obese Extremities: Bilateral Edema +1 Skin: No Rashes Psych/Mental Status: Appropriate 04/03/19 05:23: Sodium 138, Potassium 4.2, Chloride 102, Carbon Dioxide 27.0, BUN 61 H, Creatinine 2.33 H, Est GFR (MDRD) Af Amer 27 L, Est GFR (MDRD) Non-Af 22 L, BUN/Creatinine Ratio 26.2 H, Glucose 174 H, Calcium 8.6, Phosphorus 4.5 04/03/19 05:23: WBC 11.2 H, RBC 2.75 L, Hgb 8.0 L, Hct 27.1 L, MCV 98.5, MCH 29.1, MCHC 29.5 L, Plt Count 371, MPV 9.1, Immature Gran % (Auto) 1.000 H, Neut % (Auto) 82.4 H, Lymph % (Auto) 8.3 L, Bartholomew % (Auto) 7.3, Eos % (Auto) 0.7, Baso % (Auto) 0.3, Absolute Neuts (auto) 9.2 H, Nucleated RBC % 0 04/03/19 05:23: PT 15.0 H, INR 1.2, APTT 35.3 Rhythm: EKG: ECHO: Stress Test: Cardiac Cath: PCI: CT Surgery: Holter monitor: EPS: PPM: CXR: Chest CT Scan: Medical Necessity - Tobacco Use Smoking Status: Former smoker Tobacco Use: Cigarettes Assessment/Plan 1. CHF: Improving. Appreciate renal input regarding cardiac cath. Agree with gentle hydration at this time since her creatinine went up. No JAMES inhibitor's at this time because of CKD. Patient has history of hyperkalemia recently. She does have regional wall motion abnormalities and would eventually require coronary angiography to look for cause of her regional wall motion abnormalities. Patient has significant chronic anemia and CKD which make coronary angiography and subsequent management in the form of percutaneous coronary intervention, if required, higher risk. Patient came in to the hospital with MARIAN in addition to her CKD. Patient appears to be more or less optimized for cardiac catheterization. She is still at high risk of contrast- induced nephropathy. Patient has received hemodialysis in the past for a brief time. No acute bleeding noted on EGD and colonoscopy. We will proceed with coronary angiography. Risks and benefits explained to the patient in detail and patient is willing to proceed.
--- NOTE | 2019-04-03 10:41 | PCM.PN.HOSP ---
Patient Problems: Active and Suspected Problems (Last Updated 04/03/19 @ 11:46 by Arabella Stoddard) Abnormal echocardiogram (Acute) Reason for Visit: Follow-up acute congestive heart failure and symptomatic anemia Subjective: Underwent both upper and lower endoscopic evaluation by Dr. Shivani Carrion on 04/02/2019 with no identifiable source of bleeding found Patient underwent left heart catheterization on 04/03/2019 findings included triple-vessel disease with plans for patient to be referred as outpatient for cardiothoracic surgery evaluation for possible CABG. Objective: GENERAL: cooperative HEENT: Atraumatic; EYES; Anicteric, Normal Conjunctiva NECK; supple, normal thyroid, RESPIRATORY: Diminished to auscultation CARDIOVASCULAR: Regular S1 S2, GI: soft, normoactive bowel sounds, : No Renal angle tenderness; EXTREMITIES: No edema, no clubbing, MUSCULOSKELETAL: no muscle waisting NEURO: Awake; no lateralizing signs. SKIN: No Rash PSYCH; Flat affect Vitals/I&O's: Vital Signs Temp Pulse Resp BP Pulse Ox 98.4 F 74 16 113/70 94 04/03/19 05:49 04/03/19 07:00 04/03/19 06:54 04/03/19 05:49 04/03/19 06:54 Oxygen Flow Rate (L/min) [4] 2.5 Oxygen Flow Rate (L/min) [3] 2.5 Oxygen Flow Rate (L/min) [2] 2.5 Oxygen Flow Rate (L/min) [1 ( 2.5 Initial Baseline)] Oxygen Flow Rate (L/min) 2.5 Oxygen Delivery Method [4] Nasal Cannula Oxygen Delivery Method [3] Room Air Oxygen Delivery Method [2] Nasal Cannula Oxygen Delivery Method [1 ( Nasal Cannula Initial Baseline)] Oxygen Delivery Method Nasal Cannula Weight: 129.3 kg Body Mass Index (BMI) 48.2 Finger Stick Blood Glucose 70 Intake and Output for Last 24 Hours 04/01/19 04/02/19 04/03/19 23:59 23:59 23:59 Intake Total 2925 / 2925 575 / 575 25 Output Total 650 / 650 Balance 2275 / 2275 575 / 575 Microbiology Past 72 Hours 03/31/19 09:40 Stool Stool Occult Blood (EVA) - Final Laboratory Results 03/27/19 13:40: Miscellaneous Test 04/02/19 12:46: POC Glucose 134 H 04/02/19 15:01: POC Glucose 178 H 04/02/19 21:32: POC Glucose 179 H 04/03/19 05:23: Sodium 138, Potassium 4.2, Chloride 102, Carbon Dioxide 27.0, BUN 61 H, Creatinine 2.33 H, Estim Creat Clear Calc 20.79, Est GFR (MDRD) Af Amer 27 L, Est GFR (MDRD) Non-Af 22 L, BUN/Creatinine Ratio 26.2 H, Glucose 174 H, Calcium 8.6, Phosphorus 4.5, Albumin 1.9 L 04/03/19 05:23: WBC 11.2 H, RBC 2.75 L, Hgb 8.0 L, Hct 27.1 L, MCV 98.5, MCH 29.1, MCHC 29.5 L, RDW Std Deviation 61.1 H, RDW Coeff of Letitia 17.2 H, Plt Count 371, MPV 9.1, Immature Gran % (Auto) 1.000 H, Neut % (Auto) 82.4 H, Lymph % (Auto) 8.3 L, [place] % (Auto) 7.3, Eos % (Auto) 0.7, Baso % (Auto) 0.3, Absolute Neuts (auto) 9.2 H, Absolute Lymphs (auto) 0.93, Nucleated RBC % 0 04/03/19 05:23: PT 15.0 H, INR 1.2, APTT 35.3 04/03/19 07:57: POC Glucose 152 H Current Medications Acetaminophen (Tylenol) 650 mg PO Q6H PRN PRN PRN Reason: Pain Score 1-3/Temp > 100.7 F Last Admin: 03/29/19 20:16 Dose: 650 mg Documented by: Acetylcysteine (Mucomyst) 600 mg PO BID [facility] Last Admin: 04/03/19 10:09 Dose: 600 mg Documented by: Albuterol/Ipratropium (Duoneb) 3 ml INHALATION Q4HWA.RT [facility] Last Admin: 04/03/19 06:54 Dose: 3 ml Documented by: Artificial Tears (Tears Naturale, Artificial Tears) 1 drop RIGHT EYE BID [facility] Last Admin: 04/03/19 09:47 Dose: 1 drop Documented by: Atorvastatin Calcium (Lipitor) 40 mg PO QHS [facility] Last Admin: 04/02/19 21:34 Dose: 40 mg Documented by: Citalopram Hydrobromide (Celexa) 40 mg PO QHS [facility] Last Admin: 04/02/19 21:34 Dose: 40 mg Documented by: Cyclopentolate HCl (Cyclogyl) 1 drop LEFT EYE QHS [facility] Last Admin: 04/02/19 21:34 Dose: 1 drop Documented by: Enoxaparin Sodium (Lovenox) 30 mg SC DAILY [facility] Last Admin: 03/29/19 22:16 Dose: Not Given Documented by: Ergocalciferol (Vitamin D) 50,000 unit PO Th@1000 [facility] Last Admin: 03/27/19 09:36 Dose: 50,000 unit Documented by: Furosemide (Lasix) 40 mg PO BID@1000,1800 [facility] Gabapentin (Neurontin) 300 mg PO BID [facility] Last Admin: 04/02/19 21:35 Dose: 300 mg Documented by: Glucagon () 1 mg IM .X1 PRN PRN Reason: Hypoglycemia Dextrose (Dextrose 10%-Water) 250 mls @ 999 mls/hr IV .Q16M PRN; Protocol PRN Reason: HYPOGLYCEMIA Last Infusion: 04/01/19 06:49 Dose: Infused Documented by: Sodium Chloride () 1,000 mls @ 15 mls/hr IV .Q48H [facility] Sodium Chloride () 1,000 mls @ 75 mls/hr IV .[id number] [facility] Last Admin: 04/03/19 09:44 Dose: 75 mls/hr Documented by: Insulin Glargine (Lantus (Bkc)) 40 units SC DAILY [facility] Last Admin: 04/02/19 11:00 Dose: Not Given Documented by: Insulin Human Lispro (Humalog Kwikpen (Bkc)) 8 unit SC TIDCM [facility] Last Admin: 04/03/19 08:04 Dose: Not Given Documented by: Insulin Human Lispro (Humalog Kwikpen (Bkc)) 0 unit SC TIDAC [facility]; Protocol Last Admin: 04/03/19 08:04 Dose: Not Given Documented by: Melatonin (Melatonin) 3 mg PO QHS PRN PRN PRN Reason: INSOMNIA Last Admin: 04/02/19 21:40 Dose: 3 mg Documented by: Metoprolol Succinate (Toprol Xl (Beta Lesli)) 25 mg PO DAILY [facility] Last Admin: 04/03/19 05:53 Dose: 25 mg Documented by: Montelukast Sodium (Singulair) 10 mg PO QHS [facility] Last Admin: 04/02/19 21:35 Dose: 10 mg Documented by: Non-Formulary Medication (Nintedanib Esylate) 150 mg PO 0900,2100 [facility] Last Admin: 04/02/19 21:29 Dose: Not Given Documented by: Ondansetron HCl (Zofran) 4 mg IV Q8H PRN PRN PRN Reason: NAUSEA/VOMITING Last Admin: 04/01/19 20:40 Dose: 4 mg Documented by: Pantoprazole Sodium (Protonix) 20 mg PO DAILY [facility] Last Admin: 04/02/19 12:39 Dose: 20 mg Documented by: Prednisolone Acetate (Pred Forte Eye Drops (5 Ml)) 2 drop LEFT EYE DAILY [facility] Last Admin: 04/03/19 09:46 Dose: 2 drop Documented by: Prednisone () 10 mg PO DAILYCM [facility] Last Admin: 04/02/19 12:39 Dose: 10 mg Documented by: Sodium Chloride () 10 - 40 ml IV UD PRN PRN Reason: SALINE FLUSH Last Admin: 04/03/19 09:48 Dose: 20 ml Documented by: STROKE Vital Signs/Narrative: Vital Signs Pulse Resp Pulse Ox 04/03/19 07:00 74 04/03/19 06:54 76 16 94 Medical Necessity - Tobacco Use Smoking Status: Former smoker Tobacco Use: Cigarettes Assessment/Plan All Active Problems (Last Updated 04/03/19 @ 11:46 by Arabella Stoddard) Atherosclerosis of coronary artery of [place] heart without angina pectoris (Acute) Abnormal echocardiogram (Acute) Hyponatremia (Acute) Severe sepsis (Acute) Hyperkalemia (Acute) Metabolic acidosis (Acute) Cocaine dependence, episodic (Resolved) Tobacco use disorder (Resolved) Patient is a 64-year-old lady admitted with progressive shortness of breath. Found to have anemia as well as acute congestive heart failure. 1. Acute congestive heart failure with reduced ejection fraction ?Echo obtained during patient hospital stay demonstrated EF of 40%. Patient managed with Lasix. Cardiology consulted with plans for patient to undergo left heart catheterization for evaluation of her coronaries ?04/01/2019 plan for patient to undergo left heart catheterization when kidney function is felt to be close to baseline. Patient still remains a significant risk for contrast-induced nephropathy ?04/03/2019:Patient underwent left heart catheterization on 04/03/2019 findings included triple-vessel disease with plans for patient to be referred as outpatient for cardiothoracic surgery evaluation for possible CABG. 2. Anemia secondary to anemia of chronic disorder. ?Patient was transfused with 1 unit PRBC on 03/30/2019 with patient deemed symptomatic. Consult was also placed to Dr. Linda with general surgery with plans for patient to undergo endoscopic evaluation on 04/02/2019 ?04/01/2019 patient currently on clear liquid in anticipation of her procedure on 04/02/2019 04/02/2019: Scheduled to undergo endoscopic evaluation ?04/03/2019: Underwent endoscopic evaluation both upper and lower on 04/02/2019 no identifiable source of bleeding was found. Hemoglobin 8.0 as of today repeat hemoglobin ordered for a.m. 3. Ascites ?Secondary to combination of worsening chronic kidney disease as well as heart failure. Patient underwent paracentesis on 03/27/2019 with removal of 6.8 L of ascitic fluid 4. Hyponatremia secondary to patient hypervolumic state Improved with diuresis 5. Chronic kidney disease stage IV Consult placed to nephrology patient has been seen by Dr. Jo Gutierrez and notes and recommendations reviewed ?04/03/2019; creatinine 2.33 as of this a.m. With patient having undergone left heart catheterization with use of contrast dye plan will be to observe patient for 1 or 2 more days whilst monitoring her kidney function. 6. Diabetes mellitus type 2 ?Placed on Accu-Cheks before meals and at bedtime with sliding scale coverage. Did continue patient scheduled Lantus ?04/01/2019 patient did experience hypoglycemic episode this a.m. her Lantus subsequently placed on hold. ?04/03/2019 long-acting insulin resumed at an adjusted dose. 7. Pulmonary fibrosis - patient is on Ofev and on prednisone. 8. Morbid obesity With BMI of 48.1, weight loss advised 9. DVT prophylaxis - systemic anticoagulation on hold in view of patient'S significant anemia 1. Physical deconditioning ?Consulted PT/OT. The eval and recommendations reviewed. Also consulted social media strategist to assist with patient's disposition possibly to assisted facility Code Visit Inpatient E&M: 08973 Subs Hosp L2
--- NOTE | 2019-04-03 11:39 | CL.D_ITS ---
Patient Name: SAMREEN ROSARIO Study Date: 04/03/2019 Performing: Erasmo Martin MD Ht: 65 inches 165 cm : 1955 Wt: 284.8 lbs 129 kg Age: 64 Gender: female BSA: 2.3 PROCEDURE(S) PERFORMED [id number] CLINICAL PROFILE AND INDICATIONS Indications: Cardiomyopathy Heart Failure: NYHA Class: 3, Newly Diagnosed: Yes, Heart Failure Type: Systolic Stress/Imaging Stress/Image Study Performed: No CAD Presentations: Other: CHF with new regional wall motion abnormalities CONCLUSIONS Severe multivessel CAD. No significant . Normal LVEDP RECOMMENDATIONS Surgery consult for coronary revascularization. DESCRIPTION OF PROCEDURE The patient arrived to the procedure lab. The risks and benefits of the procedure as well as a full d escription of our services here and current unavailability of surgical backup were fully explained to the patient and/or their significant other prior to the catheterization. The Timeout was completed, verifying the correct patient and procedure. The patient's procedural site was prepped and draped in the usual fashion. Local anesthetic was given subcutaneously to right radial region with Lidocaine 2% . Using a modified Seldinger technique, arterial access was obtained via the right radial artery, a 6 Fr sheath was inserted. Left Coronary Artery selective angiography was performed in multiple views u sing a 5 Fr. JL3.5 catheter. LV to AO pullback pressures were then recorded.The arterial sheath was p ulled and a TR Band was applied for hemostasis CORONARY ANGIOGRAPHY DOMINANCE: Right Dominant LEFT HEART ASSESSMENT Left Ventricular Ejection Fraction: Not assessed due to CKD LEFT MAIN: 20 % Stenosis LEFT ANTERIOR DESCENDING ARTERY: PROX LAD: 70 % Stenosis MID LAD: 80-90 % Stenosis DIAGONAL 1: Proximal - 70 % Stenosis CIRCUMFLEX ARTERY: PROX CIRC: 100 % Stenosis. There is a medium sized OM and a large Posterolateral branch that fill via collaterals. RIGHT CORONARY ARTERY: Moderate to severe diffuse disease in the RCA and RPDA with a 90% stenosis in the distal RCA. VALVE FINDINGS: No Aortic Valve Stenosis COMPLICATIONS No Complications PROCEDURE MEDICATIONS Versed 1 mg IV Fentanyl 50 mcg IV Oxygen: 2 L/min via nasal cannula Heparin given IA 04/03/2019 10:47:41 Verapamil 2.5mg, Ntg 100mcgs, 3000 units of Heparin given IA 04/03/2019 10:47:41 SUMMARY OF HEMODYNAMIC DATA Time AIR REST ECG 10:29:03 AO 83/56 (69) SA 10:50:28 LV 126/3, 4 10:54:24 LV 117/0, 13 10:54:31 LVp 113/1, 15 10:54:42 AOp 102/52 (75) 10:54:47 AO 96/60 (77) 10:55:52 Signed By Erasmo Martin MD On 04/03/2019 11:39:17 Erasmo Martin MD
[2019-04-03 12:15] LABS: Bedside Glucose 187 mg/dL (70-110)
[2019-04-03] MEDS: Pantoprazole Sodium 20 MG Tablet PO (12:40)
[2019-04-03] MEDS: predniSONE 10 MG Tablet PO (12:40)
[2019-04-03] MEDS: Gabapentin 300 MG Capsule PO ×2 (12:40→22:01)
[2019-04-03] MEDS: Insulin Lispro 100 UNIT/ML INSULN.PEN 8 UNIT SC ×2 (12:42→17:47)
[2019-04-03] MEDS: Insulin Lispro 100 UNIT/ML INSULN.PEN SC ×2 (12:42→17:48)
[2019-04-03] MEDS: Furosemide 40 MG Tablet PO ×2 (12:45→17:49)
--- NOTE | 2019-04-03 17:14 | CASEMGMT ---
Patient wanted to talk with SW. SW was unable to see patient today so SW asked RN to let patient know SW will meet with her tomorrow. Christy ALEXANDRA MSW
[2019-04-03 17:56] LABS: Bedside Glucose 160 mg/dL (70-110)
[2019-04-03] MEDS: Citalopram 40 MG TABLET PO (21:59)
[2019-04-03] MEDS: Cyclopentolate 1% 2 ML Bottle 1 DRP LEFT EYE (22:00)
[2019-04-03] MEDS: Atorvastatin Calcium 40 MG Tablet PO (22:00)
[2019-04-03] MEDS: Montelukast 10 MG Tablet PO (22:01)
[2019-04-04] VITALS (11 sets, daily range): BP systolic 102–133; BP diastolic 68–74; PULSE 74–94; RESP 16–18; TEMP 36.7–37.4; O2SAT 95–98
[2019-04-04 00:41] LABS: Bedside Glucose 182 mg/dL (70-110)
[2019-04-04] MEDS: 0.9% Normal Saline 1,000 ML 75 ML IV (01:06)
[2019-04-04 06:27] LABS: Anion Gap 6 (5-15); BUN 54 mg/dL (7-18); BUN/Creat Ratio 26.1 RATIO (10-20); Calcium,Total 8.5 mg/dL (8.5-10.1); Chloride 104 mmol/L (98-107); Creatinine, Serum 2.07 mg/dL (0.55-1.02); EST Glomerular Filtration Rate 26 mL/min (>60); Est Glom Filt Rate - Afr Amer 31 mL/min (>60); Glucose 134 mg/dL (74-106); Potassium 4.1 mmol/L (3.5-5.1); Sodium Level 138 mmol/L (136-145)
[2019-04-04] MEDS: Ipratropium/Albuterol Sulfate 3 ML AMPUL.NEB INHALATION ×3 (06:54→14:12)
[2019-04-04 08:36] LABS: Bedside Glucose 111 mg/dL (70-110)
[2019-04-04] MEDS: Insulin Lispro 100 UNIT/ML INSULN.PEN 8 UNIT SC ×3 (09:16→17:07)
[2019-04-04] MEDS: Metoprolol(XL)Succ 25 MG Tablet PO (09:27)
[2019-04-04] MEDS: Gabapentin 300 MG Capsule PO (09:27)
[2019-04-04] MEDS: Pantoprazole Sodium 20 MG Tablet PO (09:27)
[2019-04-04] MEDS: Furosemide 40 MG Tablet PO ×2 (09:27→17:08)
[2019-04-04] MEDS: prednisoLONE eye drops (5 mL) 1 DROP OPTH.BTL 2 DRP LEFT EYE (09:28)
[2019-04-04] MEDS: predniSONE 10 MG Tablet PO (09:28)
[2019-04-04] MEDS: Acetylcysteine (Mucomyst Oral) 20% SOLN 600 MG PO (09:31)
--- NOTE | 2019-04-04 10:57 | DCINST_ITS ---
- Discharge Diagnoses Current Active Problems: Current Active and Chronic Problems (Last Updated 04/03/19 @ 11:46 by Arabella Stoddard) Abnormal echocardiogram (Acute) Allergies/Adverse Reactions: Allergies haloperidol [From Haldol] Allergy (Verified 03/26/19 14:23) Rash haloperidol lactate [From Haldol] Allergy (Verified 03/26/19 14:23) Rash Medications to take at Discharge Citalopram [Celexa] 40 mg PO QHS 02/05/15 Atorvastatin Calcium [Lipitor] 40 mg PO QHS 06/04/18 Cyclopentolate HCl 1 drop LEFT EYE QHS 06/04/18 Gabapentin [Neurontin] 300 mg PO BID 06/04/18 Montelukast [Singulair] 10 mg PO QHS 06/04/18 Nintedanib Esylate [Ofev] 150 mg PO BIDCM 06/04/18 Pantoprazole Sodium [Protonix] 20 mg PO DAILY 06/04/18 Prednisolone Acetate 2 drop LEFT EYE DAILY 06/04/18 Tetrahydrz/Dext 70/Peg 400/Pvp [Visine Advanced Eye Drop] 1 drop RIGHT EYE BID 06/04/18 Albuterol Aerosols [Ventolin Aerosols] 2.5 mg INHALATION Q4HWA.RT 03/26/19 Ergocalciferol (Vitamin D2) [Vitamin D2] 50 mcg PO TH 03/26/19 Furosemide [Lasix] 40 mg PO DAILY 03/26/19 Insulin Glargine [Lantus SoloStar Pen] 40 units SUBCUT DAILY 03/26/19 Insulin Regular, Human [Novolin R] 8 - 20 unit SQ TIDCM 03/26/19 Lisinopril 20 mg PO DAILY 03/26/19 Prednisone 10 mg PO DAILY 03/26/19 Furosemide [Lasix] 40 mg PO BID@1000,1800 #60 tab 04/04/19 Primary Care Physician: Toby Aleman MD [Primary Care Provider] - Test Results: Test results from this visit will be discussed in further detail at your follow- up appointment, if applicable. Please Follow Up With: Jo Gutierrez DO When: april 10, 2019 at 9am
--- NOTE | 2019-04-04 11:04 | PN.RENAL_ITS ---
Patient Problems: Active and Suspected Problems (Last Updated 04/03/19 @ 11:46 by Arabella Stoddard) Abnormal echocardiogram (Acute) Subjective: underwent heart cath yesterday will need open heart surgery Creatinine improving to 2.0 today. DC iv fluids. Diuresing with oral lasix - Physical Exam Vitals/I&O's: Vital Signs Temp Pulse Resp BP Pulse Ox 98.8 F 86 16 102/70 97 04/04/19 09:15 04/04/19 09:27 04/04/19 09:15 04/04/19 09:15 04/04/19 09:15 Oxygen Flow Rate (L/min) [4] 2.5 Oxygen Flow Rate (L/min) [3] 2.5 Oxygen Flow Rate (L/min) [2] 2.5 Oxygen Flow Rate (L/min) [1 ( 2.5 Initial Baseline)] Oxygen Flow Rate (L/min) 2.5 Oxygen Delivery Method [4] Nasal Cannula Oxygen Delivery Method [3] Room Air Oxygen Delivery Method [2] Nasal Cannula Oxygen Delivery Method [1 ( Nasal Cannula Initial Baseline)] Oxygen Delivery Method Nasal Cannula Weight: 130.5 kg Body Mass Index (BMI) 48.2 Finger Stick Blood Glucose 70 Intake and Output for Last 24 Hours 04/02/19 04/03/19 04/04/19 23:59 23:59 23:59 Intake Total 575 / 575 658.75 / 658.75 1480 / 1480 Output Total 401 / 401 550 / 550 Balance 575 / 575 257.75 / 257.75 930 / 930 General: Alert, Oriented x3, Cooperative, No apparent distress Lungs: Clear to auscultation Cardiovascular: Regular rate Abdomen: Bowel Sounds Present, Soft, Non Tender, Non-Distended, Obese Extremities: Edema - mild Psych/Mental Status: Alert and oriented to time, place, person, mood and affect Laboratory Results 04/03/19 11:38: POC Glucose 187 H 04/03/19 17:47: POC Glucose 160 H 04/03/19 22:04: POC Glucose 182 H 04/04/19 05:55: Sodium 138, Potassium 4.1, Chloride 104, Carbon Dioxide 28.0, Anion Gap 6, BUN 54 H, Creatinine 2.07 H, Estim Creat Clear Calc 23.40, Est GFR (MDRD) Af Amer 31 L, Est GFR (MDRD) Non-Af 26 L, BUN/Creatinine Ratio 26.1 H, Glucose 134 H, Calcium 8.5 04/04/19 08:30: POC Glucose 111 H Current Medications Acetaminophen (Tylenol) 650 mg PO Q6H PRN PRN PRN Reason: Pain Score 1-3/Temp > 100.7 F Last Admin: 03/29/19 20:16 Dose: 650 mg Documented by: Acetylcysteine (Mucomyst) 600 mg PO BID [facility] Last Admin: 04/04/19 09:31 Dose: 600 mg Documented by: Albuterol/Ipratropium (Duoneb) 3 ml INHALATION Q4HWA.RT [facility] Last Admin: 04/04/19 10:59 Dose: 3 ml Documented by: Artificial Tears (Tears Naturale, Artificial Tears) 1 drop RIGHT EYE BID [facility] Last Admin: 04/04/19 09:29 Dose: 1 drop Documented by: Atorvastatin Calcium (Lipitor) 40 mg PO QHS [facility] Last Admin: 04/03/19 22:00 Dose: 40 mg Documented by: Citalopram Hydrobromide (Celexa) 40 mg PO QHS [facility] Last Admin: 04/03/19 21:59 Dose: 40 mg Documented by: Cyclopentolate HCl (Cyclogyl) 1 drop LEFT EYE QHS [facility] Last Admin: 04/03/19 22:00 Dose: 1 drop Documented by: Enoxaparin Sodium (Lovenox) 30 mg SC DAILY [facility] Last Admin: 03/29/19 22:16 Dose: Not Given Documented by: Ergocalciferol (Vitamin D) 50,000 unit PO Th@1000 [facility] Last Admin: 04/03/19 12:40 Dose: 50,000 unit Documented by: Furosemide (Lasix) 40 mg PO BID@1000,1800 [facility] Last Admin: 04/04/19 09:27 Dose: 40 mg Documented by: Gabapentin (Neurontin) 300 mg PO BID [facility] Last Admin: 04/04/19 09:27 Dose: 300 mg Documented by: Glucagon () 1 mg IM .X1 PRN PRN Reason: Hypoglycemia Dextrose (Dextrose 10%-Water) 250 mls @ 999 mls/hr IV .Q16M PRN; Protocol PRN Reason: HYPOGLYCEMIA Last Infusion: 04/01/19 06:49 Dose: Infused Documented by: Sodium Chloride () 1,000 mls @ 15 mls/hr IV .Q48H [facility] Last Admin: 04/03/19 11:22 Dose: Not Given Documented by: Sodium Chloride () 1,000 mls @ 75 mls/hr IV .[id number] [facility] Last Admin: 04/04/19 01:06 Dose: 75 mls/hr Documented by: Insulin Glargine (Lantus ([facility])) 40 units SC DAILY [facility] Last Admin: 04/04/19 09:18 Dose: 40 u Documented by: Insulin Human Lispro (Humalog Kwikpen ([facility])) 8 unit SC TIDCM [facility] Last Admin: 04/04/19 09:16 Dose: 8 units Documented by: Insulin Human Lispro (Humalog Kwikpen ([facility])) 0 unit SC TIDAC [facility]; Protocol Last Admin: 04/04/19 09:16 Dose: Not Given Documented by: Melatonin (Melatonin) 3 mg PO QHS PRN PRN PRN Reason: INSOMNIA Last Admin: 04/02/19 21:40 Dose: 3 mg Documented by: Metoprolol Succinate (Toprol Xl (Beta Lesli)) 25 mg PO DAILY [facility] Last Admin: 04/04/19 09:27 Dose: 25 mg Documented by: Montelukast Sodium (Singulair) 10 mg PO QHS [facility] Last Admin: 04/03/19 22:01 Dose: 10 mg Documented by: Non-Formulary Medication (Nintedanib Esylate) 150 mg PO 0900,2100 [facility] Last Admin: 04/04/19 09:26 Dose: 150 mg Documented by: Ondansetron HCl (Zofran) 4 mg IV Q8H PRN PRN PRN Reason: NAUSEA/VOMITING Last Admin: 04/01/19 20:40 Dose: 4 mg Documented by: Pantoprazole Sodium (Protonix) 20 mg PO DAILY [facility] Last Admin: 04/04/19 09:27 Dose: 20 mg Documented by: Prednisolone Acetate (Pred Forte Eye Drops (5 Ml)) 2 drop LEFT EYE DAILY [facility] Last Admin: 04/04/19 09:28 Dose: 2 drop Documented by: [facility] () [facility] Last Admin: 04/04/19 09:28 Dose: 10 mg Documented by: Sodium Chloride () 10 - 40 ml IV UD PRN PRN Reason: SALINE FLUSH Last Admin: 04/03/19 09:48 Dose: 20 ml Documented by: Medical Necessity - Tobacco Use Smoking Status: Former smoker Tobacco Use: Cigarettes Assessment/Plan All Active Problems (Last Updated 04/03/19 @ 11:46 by Arabella Stoddard) Atherosclerosis of coronary artery of [place] heart without angina pectoris (Acute) Abnormal echocardiogram (Acute) Hyponatremia (Acute) Severe sepsis (Acute) Hyperkalemia (Acute) Metabolic acidosis (Acute) Cocaine dependence, episodic (Resolved) Tobacco use disorder (Resolved) 1. Rangel on CKD stage 4. Creatinine improved to 2.0 s/p heart cath 04/03/19. Renal fxn stable. Continue with po lasix 40mg twice a day. Has f/u appt with me on Apr 10, 2019 at 9am. 2. CAD s/p heart cath 04/03/19 requiring open heart 3. CHF, fluid overload, edema. changed to po lasix 4. Iron def anemia s/p iv iron, epo x1 5. Hyponatremia due to volume expansion resolved 6. Hyperkalemia due to ACEI, RANGEL resolved. Consider low dose ARB in place of ACEI. dw pt and nursing staff and hospitalist
--- NOTE | 2019-04-04 11:10 | PCM.DC ---
- Discharge Diagnoses Current Active Problems: Current Active and Chronic Problems (Last Updated 04/03/19 @ 11:46 by Arabella Stoddard) Abnormal echocardiogram (Acute) You will use the following diet at home:: Cardiac, Renal (restricted protein/sodium) Your food should be the consistency of: Regular Allergies/Adverse Reactions: Allergies haloperidol [From Haldol] Allergy (Verified 03/26/19 14:23) Rash haloperidol lactate [From Haldol] Allergy (Verified 03/26/19 14:23) Rash Medications to take at Discharge Citalopram [Celexa] 40 mg PO QHS 02/05/15 Atorvastatin Calcium [Lipitor] 40 mg PO QHS 06/04/18 Cyclopentolate HCl 1 drop LEFT EYE QHS 06/04/18 Gabapentin [Neurontin] 300 mg PO BID 06/04/18 Montelukast [Singulair] 10 mg PO QHS 06/04/18 Nintedanib Esylate [Ofev] 150 mg PO BIDCM 06/04/18 Pantoprazole Sodium [Protonix] 20 mg PO DAILY 06/04/18 Prednisolone Acetate 2 drop LEFT EYE DAILY 06/04/18 Tetrahydrz/Dext 70/Peg 400/Pvp [Visine Advanced Eye Drop] 1 drop RIGHT EYE BID 06/04/18 Albuterol Aerosols [Ventolin Aerosols] 2.5 mg INHALATION Q4HWA.RT 03/26/19 Ergocalciferol (Vitamin D2) [Vitamin D2] 50 mcg PO TH 03/26/19 Insulin Glargine [Lantus SoloStar Pen] 40 units SUBCUT DAILY 03/26/19 Insulin Regular, Human [Novolin R] 8 - 20 unit SQ TIDCM 03/26/19 Lisinopril 20 mg PO DAILY 03/26/19 Prednisone 10 mg PO DAILY 03/26/19 Furosemide [Lasix] 40 mg PO BID #120 tab 04/04/19 Furosemide [Lasix] 40 mg PO BID@1000,1800 #60 tab 04/04/19 The following prescriptions were given: Furosemide [Lasix] 40 mg PO BID #120 tab Transmission Status: Pending to [facility] #30 Furosemide [Lasix] 40 mg PO BID@1000,1800 #60 tab Primary Care Physician: Toby Aleman MD [Primary Care Provider] - Test Results: Test results from this visit will be discussed in further detail at your follow-up appointment, if applicable. Please Follow Up With: Jo Gutiererz DO When: april 10, 2019 at 9am Please Follow Up With: Mohini Martin MD When: in 1 week for referral to cardiothoracic surgery Proposed Discharge Date: 04/04/19
--- NOTE | 2019-04-04 11:14 | PCM.DC.SUM ---
Discharge Date and Diagnosis - Problem List Patient Problems: Active and Suspected Problems (Last Updated 04/03/19 @ 11:46 by Arabella Nolt) Abnormal echocardiogram (Acute) Date of Admission: 03/26/19 Date of Discharge: 04/04/19 - Primary Discharge Diagnosis Active and Suspected Problems (Last Updated 04/03/19 @ 11:46 by Arabella Nolt) Abnormal echocardiogram (Acute) - Secondary Discharge Diagnosis Chronic Problems (Last Updated 04/03/19 @ 11:46 by Arabella Nolt) Obstructive sleep apnea (Chronic) Respiratory failure with hypoxia (Chronic) Pulmonary fibrosis (Chronic) Acute kidney injury superimposed on chronic kidney disease (Chronic) Obesity (Chronic) Hypertension (Chronic) Depression (Chronic) Controlled diabetes mellitus type II without complication (Chronic) Hospital Course and Treatment Imaging Results: Clinical Impression(s) from Imaging Studies Chest X-Ray 03/26/19 15:00 IMPRESSION: Mild degree of vascular congestion and CHF. Electronically Signed: Eleazar Owens, at 15:26 EST , Service support , Paracentesis Ultrasound 03/27/19 16:49 IMPRESSION: Ultrasound guided paracentesis. Electronically Signed: Eleazar Owens, at 14:53 EST , Service support , Summary of Care Provided: 1. Acute congestive heart failure with reduced ejection fraction ?Echo obtained during patient hospital stay demonstrated EF of 40%. Patient managed with Lasix. Cardiology consulted with plans for patient to undergo left heart catheterization for evaluation of her coronaries ?04/01/2019 plan for patient to undergo left heart catheterization when kidney function is felt to be close to baseline. Patient still remains a significant risk for contrast-induced nephropathy ?04/03/2019:Patient underwent left heart catheterization on 04/03/2019 findings included triple-vessel disease with plans for patient to be referred as outpatient for cardiothoracic surgery evaluation for possible CABG. 2. Anemia secondary to anemia of chronic disorder. ?Patient was transfused with 1 unit PRBC on 03/30/2019 with patient deemed symptomatic. Consult was also placed to Dr. Linda with general surgery with plans for patient to undergo endoscopic evaluation on 04/02/2019 ?04/01/2019 patient currently on clear liquid in anticipation of her procedure on 04/02/2019 04/02/2019: Scheduled to undergo endoscopic evaluation ?04/03/2019: Underwent endoscopic evaluation both upper and lower on 04/02/2019 no identifiable source of bleeding was found. Hemoglobin 8.0 as of today repeat hemoglobin ordered for a.m. 3. Ascites ?Secondary to combination of worsening chronic kidney disease as well as heart failure. Patient underwent paracentesis on 03/27/2019 with removal of 6.8 L of ascitic fluid 4. Hyponatremia secondary to patient hypervolumic state Improved with diuresis 5. Chronic kidney disease stage IV Consult placed to nephrology patient has been seen by Dr. Jo Gutierrez and notes and recommendations reviewed ?04/03/2019; creatinine 2.33 as of this a.m. With patient having undergone left heart catheterization with use of contrast dye plan will be to observe patient for 1 or 2 more days whilst monitoring her kidney function. 6. Diabetes mellitus type 2 ?Placed on Accu-Cheks before meals and at bedtime with sliding scale coverage. Did continue patient scheduled Lantus ?04/01/2019 patient did experience hypoglycemic episode this a.m. her Lantus subsequently placed on hold. ?04/03/2019 long-acting insulin resumed at an adjusted dose. 7. Pulmonary fibrosis - patient is on Ofev and on prednisone. 8. Morbid obesity With BMI of 48.1, weight loss advised 9. DVT prophylaxis - systemic anticoagulation on hold in view of patient'S significant anemia 1. Physical deconditioning ?Consulted PT/OT. The eval and recommendations reviewed. Also consulted social psychologist to assist with patient's disposition possibly to retirement facility. Patient requested to be discharged home instead of going to the retirement facility. Patient was discharged home with home health Patient Problems: Active and Suspected Problems (Last Updated 04/03/19 @ 11:46 by Arabella Stoddard) Abnormal echocardiogram (Acute) Objective: GENERAL: cooperative HEENT: Atraumatic; EYES; Anicteric, Normal Conjunctiva NECK; supple, normal thyroid, RESPIRATORY: Diminished to auscultation CARDIOVASCULAR: Regular S1 S2, GI: soft, normoactive bowel sounds, SKIN: No Rash PSYCH; Flat affect - Physical Exam Vitals/I&O's: Vital Signs Temp Pulse Resp BP Pulse Ox 98.8 F 86 16 102/70 97 04/04/19 09:15 04/04/19 09:27 04/04/19 09:15 04/04/19 09:15 04/04/19 09:15 Oxygen Flow Rate (L/min) [4] 2.5 Oxygen Flow Rate (L/min) [3] 2.5 Oxygen Flow Rate (L/min) [2] 2.5 Oxygen Flow Rate (L/min) [1 ( 2.5 Initial Baseline)] Oxygen Flow Rate (L/min) 2.5 Oxygen Delivery Method [4] Nasal Cannula Oxygen Delivery Method [3] Room Air Oxygen Delivery Method [2] Nasal Cannula Oxygen Delivery Method [1 ( Nasal Cannula Initial Baseline)] Oxygen Delivery Method Nasal Cannula Weight: 130.5 kg Body Mass Index (BMI) 48.2 Finger Stick Blood Glucose 70 Intake and Output for Last 24 Hours 04/02/19 04/03/19 04/04/19 23:59 23:59 23:59 Intake Total 575 / 575 658.75 / 658.75 1480 / 1480 Output Total 401 / 401 550 / 550 Balance 575 / 575 257.75 / 257.75 930 / 930 Laboratory Results 04/03/19 11:38: POC Glucose 187 H 04/03/19 17:47: POC Glucose 160 H 04/03/19 22:04: POC Glucose 182 H 04/04/19 05:55: Sodium 138, Potassium 4.1, Chloride 104, Carbon Dioxide 28.0, Anion Gap 6, BUN 54 H, Creatinine 2.07 H, Estim Creat Clear Calc 23.40, Est GFR (MDRD) Af Amer 31 L, Est GFR (MDRD) Non-Af 26 L, BUN/Creatinine Ratio 26.1 H, Glucose 134 H, Calcium 8.5 04/04/19 08:30: POC Glucose 111 H Current Medications Acetaminophen (Tylenol) 650 mg PO Q6H PRN PRN PRN Reason: Pain Score 1-3/Temp > 100.7 F Last Admin: 03/29/19 20:16 Dose: 650 mg Documented by: Acetylcysteine (Mucomyst) 600 mg PO BID DARIO Last Admin: 04/04/19 09:31 Dose: 600 mg Documented by: Albuterol/Ipratropium (Duoneb) 3 ml INHALATION Q4HWA.RT [facility] Last Admin: 04/04/19 10:59 Dose: 3 ml Documented by: Artificial Tears (Tears Naturale, Artificial Tears) 1 drop RIGHT EYE BID [facility] Last Admin: 04/04/19 09:29 Dose: 1 drop Documented by: Atorvastatin Calcium (Lipitor) 40 mg PO QHS [facility] Last Admin: 04/03/19 22:00 Dose: 40 mg Documented by: Citalopram Hydrobromide (Celexa) 40 mg PO QHS [facility] Last Admin: 04/03/19 21:59 Dose: 40 mg Documented by: Cyclopentolate HCl (Cyclogyl) 1 drop LEFT EYE QHS [facility] Last Admin: 04/03/19 22:00 Dose: 1 drop Documented by: Enoxaparin Sodium (Lovenox) 30 mg SC DAILY [facility] Last Admin: 03/29/19 22:16 Dose: Not Given Documented by: Ergocalciferol (Vitamin D) 50,000 unit PO Th@1000 [facility] Last Admin: 04/03/19 12:40 Dose: 50,000 unit Documented by: Furosemide (Lasix) 40 mg PO BID@1000,1800 [facility] Last Admin: 04/04/19 09:27 Dose: 40 mg Documented by: Gabapentin (Neurontin) 300 mg PO BID [facility] Last Admin: 04/04/19 09:27 Dose: 300 mg Documented by: Glucagon () 1 mg IM .X1 PRN PRN Reason: Hypoglycemia Dextrose (Dextrose 10%-Water) 250 mls @ 999 mls/hr IV .Q16M PRN; Protocol PRN Reason: HYPOGLYCEMIA Last Infusion: 04/01/19 06:49 Dose: Infused Documented by: Sodium Chloride () 1,000 mls @ 15 mls/hr IV .Q48H [facility] Last Admin: 04/03/19 11:22 Dose: Not Given Documented by: Sodium Chloride () 1,000 mls @ 75 mls/hr IV .[id number] [facility] Last Admin: 04/04/19 01:06 Dose: 75 mls/hr Documented by: Insulin Glargine (Lantus ([facility])) 40 units SC DAILY [facility] Last Admin: 04/04/19 09:18 Dose: 40 u Documented by: Insulin Human Lispro (Humalog Kwikpen ([facility])) 8 unit SC TIDCM [facility] Last Admin: 04/04/19 09:16 Dose: 8 units Documented by: Insulin Human Lispro (Humalog Kwikpen ([facility])) 0 unit SC TIDAC [facility]; Protocol Last Admin: 04/04/19 09:16 Dose: Not Given Documented by: Melatonin (Melatonin) 3 mg PO QHS PRN PRN PRN Reason: INSOMNIA Last Admin: 04/02/19 21:40 Dose: 3 mg Documented by: Metoprolol Succinate (Toprol Xl (Beta Lesli)) 25 mg PO DAILY [facility] Last Admin: 04/04/19 09:27 Dose: 25 mg Documented by: Montelukast Sodium (Singulair) 10 mg PO QHS [facility] Last Admin: 04/03/19 22:01 Dose: 10 mg Documented by: Non-Formulary Medication (Nintedanib Esylate) 150 mg PO 0900,2100 [facility] Last Admin: 04/04/19 09:26 Dose: 150 mg Documented by: Ondansetron HCl (Zofran) 4 mg IV Q8H PRN PRN PRN Reason: NAUSEA/VOMITING Last Admin: 04/01/19 20:40 Dose: 4 mg Documented by: Pantoprazole Sodium (Protonix) 20 mg PO DAILY [facility] Last Admin: 04/04/19 09:27 Dose: 20 mg Documented by: Prednisolone Acetate (Pred Forte Eye Drops (5 Ml)) 2 drop LEFT EYE DAILY [facility] Last Admin: 04/04/19 09:28 Dose: 2 drop Documented by: [facility] () [facility] Admin: 04/04/19 09:28 Dose: 10 mg Documented by: Sodium Chloride () 10 - 40 ml IV UD PRN PRN Reason: SALINE FLUSH Last Admin: 04/03/19 09:48 Dose: 20 ml Documented by: Discharge Diet: Low fat/ Low Cholesterol, 8 Cup Fluid Restriciton Discharge Activity: Return to Normal Activity Home Medications: Medications to take at Discharge Citalopram [Celexa] 40 mg PO QHS 02/05/15 Atorvastatin Calcium [Lipitor] 40 mg PO QHS 06/04/18 Cyclopentolate HCl 1 drop LEFT EYE QHS 06/04/18 Gabapentin [Neurontin] 300 mg PO BID 06/04/18 Montelukast [Singulair] 10 mg PO QHS 06/04/18 Nintedanib Esylate [Ofev] 150 mg PO BID 06/04/18 Pantoprazole Sodium [Protonix] 20 mg PO DAILY 06/04/18 Prednisolone Acetate 2 drop LEFT EYE DAILY 06/04/18 Tetrahydrz/Dext 70/Peg 400/Pvp [Visine Advanced Eye Drop] 1 drop RIGHT EYE BID 06/04/18 Albuterol Aerosols [Ventolin Aerosols] 2.5 mg INHALATION Q4HWA.RT 03/26/19 Ergocalciferol (Vitamin D2) [Vitamin D2] 50 mcg PO TH 03/26/19 Insulin Glargine [Lantus SoloStar Pen] 40 units SUBCUT DAILY 03/26/19 Insulin Regular, Human [Novolin R] 8 - 20 unit SQ TIDCM 03/26/19 Lisinopril 20 mg PO DAILY 03/26/19 Prednisone 10 mg PO DAILY 03/26/19 Furosemide [Lasix] 40 mg PO BID #120 tab 04/04/19 Furosemide [Lasix] 40 mg PO BID@1000,1800 #60 tab 04/04/19 Following Prescrptions Were Given to Patient: Furosemide [Lasix] 40 mg PO BID #120 tab Transmission Status: Pending to [facility] #30 Furosemide [Lasix] 40 mg PO BID@1000,1800 #60 tab Primary Care Physician: Toby Aleman MD [Primary Care Provider] - Please Follow Up With: Jo Gutierrez DO When: april 10, 2019 at 9am Please Follow Up With: Mohini Martin MD When: in 1 week for referral to cardiothoracic surgery Disposition: Home with Home Health Minutes spent on discharge:: 45 Medical Necessity - Tobacco Use Smoking Status: Former smoker Tobacco Use: Cigarettes Meaningful Use Info Meaningful Use Diagnoses (Choose all that apply): CHF - CHF JAMES/ARB ordered at discharge?: Yes Documented LVEF (%): 40 Code Visit Inpatient E&M: 33978 Disch Hosp
--- NOTE | 2019-04-04 11:38 | CASEMGMT ---
As per nurse, pt now would like to go home rather than to the custodial. Pt is up walking the halls and moving well. NIKOLE spoke w/pt in room. She explains that she needs to have bypass surgery, and needs to follow up in [place] for this. Pt states that the nursery helper does not want her doing any strenuous exercise. Pt does feel she can manage at home at this time, though will want to go to the custodial after surgery. Pt asked if she would be able to do that, or if she won't be able to go since she is not going now. SW explained that no, she should be able to go after her surgery. Pt asked about them holding a bed for her. SW explained that [facility] will likely not hold a bed from now until she has surgery, but that once she knows her surgery date she can call [facility] to let them know, and they may be able to work with her to secure a bed. Pt states understanding. SW explained will call and let [facility] know, and pt asked for their number, SW explained will bring it in to her so she can follow up once pt knows the date of the surgery. SW spoke w/pt about home health. Pt does not want home health at this time. She wants to go home, follow up in [place], and may decide after that she wants home health. Pt states is hoping can get her surgery scheduled next week but does not know if that will happen. SW encouraged pt to have home health, for a nurse to check on her at home while she waits for surgery. Pt again declined. SW did let pt know if she gets home and changes her mind, to follow up w/her PCP and he can make a referral to home health. Pt states understanding. NIKOLE called [facility], spoke w/[facility] in admissions. NIKOLE let [facility] know pt is going home but needs to have bypass surgery and will want to come after that. NIKOLE explained to [facility] that pt is to call when she knows the surgery date to see if they can hold a bed for her. Remedios states understanding. NIKOLE spoke w/pt again, let her know that NIKOLE called [facility] and let [facility] know pt is not coming now but will want to come after surgery. NIKOLE gave her the information to contact [facility] at [place] once she knows her surgery date. Pt states understanding. Plan: Home, will follow up w/PCP if she decides would like home health care
--- NOTE | 2019-04-04 11:48 | PHA.DC.MC ---
Pharmacy Service has performed discharge medication reconciliation and counseling for this patient. 1. FUROSEMIDE 40MG PO BID The patient's discharge medication list was reviewed for discrepancies and discrepancies were resolved. I SPOKE WITH DR. CHO REGARDING DUPLICATE FUROSEMIDE 40MG BID. HE WILL ASK NURSE TO REMOVE ONE FROM DISCHARGE LIST. Home Medications Citalopram [Celexa] 40 mg PO QHS 02/05/15 Atorvastatin Calcium [Lipitor] 40 mg PO QHS 06/04/18 Cyclopentolate HCl 1 drop LEFT EYE QHS 06/04/18 Gabapentin [Neurontin] 300 mg PO BID 06/04/18 Montelukast [Singulair] 10 mg PO QHS 06/04/18 Nintedanib Esylate [Ofev] 150 mg PO BIDCM 06/04/18 Pantoprazole Sodium [Protonix] 20 mg PO DAILY 06/04/18 Prednisolone Acetate 2 drop LEFT EYE DAILY 06/04/18 Tetrahydrz/Dext 70/Peg 400/Pvp [Visine Advanced Eye Drop] 1 drop RIGHT EYE BID 06/04/18 Albuterol Aerosols [Ventolin Aerosols] 2.5 mg INHALATION Q4HWA.RT 03/26/19 Ergocalciferol (Vitamin D2) [Vitamin D2] 50 mcg PO TH 03/26/19 Insulin Glargine [Lantus SoloStar Pen] 40 units SUBCUT DAILY 03/26/19 Insulin Regular, Human [Novolin R] 8 - 20 unit SQ TIDCM 03/26/19 Lisinopril 20 mg PO DAILY 03/26/19 Prednisone 10 mg PO DAILY 03/26/19 Furosemide [Lasix] 40 mg PO BID #120 tab 04/04/19 Furosemide [Lasix] 40 mg PO BID@1000,1800 #60 tab 04/04/19 The patient was counseled on the following discharge medications and changes in medications for homegoing were reviewed. The Reason for Use, instructions for use, and potential side effects were reviewed for all new medications. The patient's questions regarding all of their medications were answered. The patient was able to verbally demonstrate an understanding of their discharge medications.
[2019-04-04] MEDS: Insulin Lispro 100 UNIT/ML INSULN.PEN SC ×2 (12:32→17:07)
[2019-04-04 12:40] LABS: Bedside Glucose 202 mg/dL (70-110)
--- NOTE | 2019-04-04 14:00 | PN.CARD_ITS ---
Subjectve: The patient is awake and alert. She denies any ongoing symptoms of chest discomfort. She has had no acute change with respect to her shortness of br eath/dyspnea. She states she is still lost weight compared to her admission to the hospital. Objective: Vital Signs Temp Pulse Resp BP Pulse Ox 98.8 F 86 16 102/70 97 04/04/19 09:15 04/04/19 10:59 04/04/19 10:59 04/04/19 09:15 04/04/19 09:15 Oxygen Flow Rate (L/min) [4] 2.5 Oxygen Flow Rate (L/min) [3] 2.5 Oxygen Flow Rate (L/min) [2] 2.5 Oxygen Flow Rate (L/min) [1 ( 2.5 Initial Baseline)] Oxygen Flow Rate (L/min) 3 Oxygen Delivery Method [4] Nasal Cannula Oxygen Delivery Method [3] Room Air Oxygen Delivery Method [2] Nasal Cannula Oxygen Delivery Method [1 ( Nasal Cannula Initial Baseline)] Oxygen Delivery Method Nasal Cannula Weight: 287 lb 11.252 oz Body Mass Index (BMI) 48.2 Finger Stick Blood Glucose 70 Intake and Output for Last 24 Hours 04/02/19 04/03/19 04/04/19 23:59 23:59 23:59 Intake Total 575 / 575 658.75 / 658.75 2243.75 / 2243.75 Output Total 401 / 401 550 / 550 Balance 575 / 575 257.75 / 257.75 1693.75 / 1693.75 General: Awake, Alert, Oriented x 3, Cooperative, No Acute Distress, Obese HEENT: Atraumatic, Normocephalic, PERRL, EOMI, Sclera Non Icteric Oral: Moist Mucosa Neck: Supple, Good ROM, No JVD Lungs: - Cardiovascular: Regular Rhythm - No obvious rales or rhonchi, Normal S1, Normal S2 Abdomen: Bowel Sounds Present, Soft, Non Tender Extremities: Mild RLE Edema, Mild LLE Edema Psych/Mental Status: Appropriate 04/04/19 05:55: Sodium 138, Potassium 4.1, Chloride 104, Carbon Dioxide 28.0, Anion Gap 6, BUN 54 H, Creatinine 2.07 H, Est GFR (MDRD) Af Amer 31 L, Est GFR (MDRD) Non-Af 26 L, BUN/Creatinine Ratio 26.1 H, Glucose 134 H, Calcium 8.5 Rhythm: Sinus rhythm Medical Necessity - Tobacco Use Smoking Status: Former smoker Tobacco Use: Cigarettes Assessment/Plan 1. Congestive heart failure At the present time she will continue to be monitored. She will continue medical adjustment. Based upon her echocardiographic findings she has been reported as having left ventricular regional wall motion abnormalities and diminished LVEF. She has undergone evaluation with diagnostic cardiac catheterization. She was found to have extensive CAD. She is being referred for an outpatient referral/evaluation for CABG. In the interim she is continuing medical management. 2. Hypertension She will continue medical management. 3. Diabetes mellitus She will continue evaluation care per internal medicine. 4. Chronic renal insufficiency She is being followed by nephrology. 5. Anemia She remains anemic. It is unclear whether this is all related to her chronic renal sufficiency or there are other etiologies. She may need, over time, additional PRBCs. From a cardiac standpoint she will continue to follow with Dr. Martin as an outpatient as he assist in arranging a referral for CABG evaluation. Comment: The patient's case has been discussed and reviewed with the patient. This note was generated using a voice recognition system and there may be incorrect words, spelling or punctuation that were not noted when reviewing the office note prior to saving.
[2019-04-04 17:16] LABS: Bedside Glucose 199 mg/dL (70-110)
--- NOTE | 2019-04-07 13:58 | CASEMGMT ---
SAVANNAH CM Discharge Follow-up Phone Call: NIKKY: Lena Strata: 4 Call Date: 04/07/2019 Discharge Date: 04/04/2019 Time of Call: 1355 Duration: 0 Admitting Diagnosis: CHF, Anemia Discharge follow-up call attempted to pt. Nonidentifying voicemail received. Vague message left requesting a return call left. Werner Valdez RN
== END 2019-04-04 19:51 | disposition home or self-care (01) | DRG 286 ==
LOC: ED 15:32 → PCU 16:53
PROVIDERS: Family Medicine; Internal Medicine Nephrology; Student in an Organized Health Care Education/Training Program; Surgery; Emergency Provider Emergency Medicine; Family Provider Internal Medicine; PCP Internal Medicine; Visit Provider Internal Medicine
PROC: 0DJD8ZZ Inspection of Lower Intestinal Tract, Via Natural or Artificial Opening Endoscopic (ICD-10-PCS; CPT 45378; principal; 2019-04-02 10:25)
DX: I13.0 Hypertensive heart and chronic kidney disease with heart failure and stage 1 through stage 4 chronic kidney disease, or unspecified chronic kidney disease (principal); I50.43 Acute on chronic combined systolic (congestive) and diastolic (congestive) heart failure; N17.0 Acute kidney failure with tubular necrosis; N18.4 Chronic kidney disease, stage 4 (severe); N17.9 Acute kidney failure, unspecified; Z68.42 Body mass index [BMI] 45.0-49.9, adult; E87.1 Hypo-osmolality and hyponatremia; F33.9 Major depressive disorder, recurrent, unspecified; J96.11 Chronic respiratory failure with hypoxia; R18.0 Malignant ascites; I25.10 Atherosclerotic heart disease of native coronary artery without angina pectoris; R93.1 Abnormal findings on diagnostic imaging of heart and coronary circulation; G47.33 Obstructive sleep apnea (adult) (pediatric); J84.10 Pulmonary fibrosis, unspecified; E11.22 Type 2 diabetes mellitus with diabetic chronic kidney disease; D63.1 Anemia in chronic kidney disease; D50.9 Iron deficiency anemia, unspecified; E11.65 Type 2 diabetes mellitus with hyperglycemia; E66.01 Morbid (severe) obesity due to excess calories; K64.4 Residual hemorrhoidal skin tags; K64.8 Other hemorrhoids; K44.9 Diaphragmatic hernia without obstruction or gangrene; Z79.4 Long term (current) use of insulin; Z99.81 Dependence on supplemental oxygen; Z79.899 Other long term (current) drug therapy; Z87.891 Personal history of nicotine dependence; E21.1 Secondary hyperparathyroidism, not elsewhere classified
CPT/HCPCS: 36415; 49083; 71045; 80048; 80053; 80069; 81050; 82274; 82570; 82575; 82607; 82728; 82746; 82945; 82962; 83036; 83540; 83550; 83880; 83970; 84100; 84156; 84157; 84300; 84443; 84484; 85025; 85027; 85610; 85730; 86850; 86900; 86901; 86920; 86922; 88108; 88305; 88313; 88341; 88342; 89050; 93005; 93306; 93454; 94640; 97110; 97116; 97162; 97166; 97530; 97535; 97802; 97803; 99152; 99285; J1756; J7030; J7040; P9016; Q9957; Q9967; A4216; C1769; C1894; J1940; J2405; Q5106

== ENCOUNTER → 2019-04-08 08:59 | Outpatient (CLI) | payer MEDICARE, MEDICAID, SELFPAY ==
[2019-04-02 09:29] VITALS: BMI 48.2
[2019-04-08 09:53] LABS: Hematocrit 29.5 % (37-47); Hemoglobin 8.6 g/dL (12.0-15.0); Mean Corp Hgb Conc 29.2 g/dL (32-36); Mean Corpuscular Hgb 29.1 pg (27.0-32.0); Mean Corpuscular Volume 99.7 fL (81-99); Mean Platelet Vol. 9.4 fl (6.2-12.0); Platelet Count 424 K/mm3 (150-450); RBC Distribution Width CV 17.5 % (11.6-14.6); RBC Distribution Width SD 64.4 fl (35.1-43.9); Red Blood Count 2.96 M/mm3 (4.2-5.4); White Blood Count 16.5 K/mm3 (4.4-11.0)
[2019-04-08 10:45] LABS: Albumin, Serum 1.9 g/dL (3.2-5.0); BUN 73 mg/dL (7-18); BUN/Creat Ratio 18.2 RATIO (10-20); Calcium,Total 8.4 mg/dL (8.5-10.1); Chloride 100 mmol/L (98-107); Creatinine, Serum 4.02 mg/dL (0.55-1.02); EST Glomerular Filtration Rate 12 mL/min (>60); Est Glom Filt Rate - Afr Amer 14 mL/min (>60); Glucose 61 mg/dL (74-106); Phosphorus 4.8 mg/dL (2.5-4.9); Potassium 4.1 mmol/L (3.5-5.1); Sodium Level 134 mmol/L (136-145)
== END ==
LOC: LAB.FUTURE 09:02 → LAB 09:09
PROVIDERS: PCP Internal Medicine; Referring Provider Internal Medicine Nephrology; Visit Provider Internal Medicine Nephrology
DX: D64.9 Anemia, unspecified (principal); N17.0 Acute kidney failure with tubular necrosis
CPT/HCPCS: 36415; 80069; 85027

== ENCOUNTER → 2019-04-16 | Outpatient (CLI) | payer MEDICARE, MEDICAID, SELFPAY ==
[2019-04-02 09:29] VITALS: BMI 48.2
[2019-04-16 17:33] LABS: Albumin, Serum 2.1 g/dL (3.2-5.0); BUN 99 mg/dL (7-18); BUN/Creat Ratio 25.6 RATIO (10-20); Calcium,Total 8.4 mg/dL (8.5-10.1); Chloride 95 mmol/L (98-107); Creatinine, Serum 3.87 mg/dL (0.55-1.02); EST Glomerular Filtration Rate 12 mL/min (>60); Est Glom Filt Rate - Afr Amer 15 mL/min (>60); Glucose 59 mg/dL (74-106); Phosphorus 6.3 mg/dL (2.5-4.9); Potassium 5.4 mmol/L (3.5-5.1); Sodium Level 125 mmol/L (136-145)
== END | disposition home or self-care (01) ==
PROVIDERS: Internal Medicine Nephrology; PCP Internal Medicine; Referring Provider Internal Medicine; Visit Provider Internal Medicine
DX: I10 Essential (primary) hypertension (principal)
CPT/HCPCS: 80069

== ENCOUNTER 2019-04-18 15:58 | Inpatient (IN) | payer MEDICARE, MEDICAID, SELFPAY ==
[2019-04-02 09:29] VITALS: BMI 48.2
[2019-04-18 15:59] VITALS: BP 97/53; PULSE 66; RESP 18; TEMP 36.6; O2SAT 95; BMI 46.0
--- NOTE | 2019-04-18 16:21 | EKG12_ITS ---
Test Reason : GEN ILLNESS Blood Pressure : / mmHG Vent. Rate : 057 BPM Atrial Rate : 057 BPM P-R Int : 182 ms QRS Dur : 132 ms QT Int : 442 ms P-R-T Axes : 020 -43 056 degrees QTc Int : 430 ms Sinus bradycardia Left axis deviation Right bundle branch block Possible Lateral infarct , age undetermined Abnormal ECG Confirmed by VINNIE FALK, RICH ([id number]), image editor ELIDIA SPIVEY ([id number]) on 04/21/2019 3:30:26 PM Referred By: JALEN Confirmed By:RICH BIRMINGHAM MD
--- NOTE | 2019-04-18 16:24 | ED.DCSUM_ITS ---
History of Present Illness Chief Complaint: General Illness Detail of Chief Complaint: Multiple symptoms/complaints Informant: Patient, Significant Other Onset: Days Context: Gradual Onset Timing: Continuous Quality: Increased abdominal girth, decreased p.o. intake and urine output etc. Location: Generalized Current Severity: Moderate Maximum Severity: Moderate Worsened by: Recent diagnosis of abdominal malignancy Relieved by: Nothing Associated Symptoms: Nothing Narrative: Patient is a 64-year-old woman with multiple medical problems which include hypertension, diabetes and renal disease. She has history of ascites and has had a paracentesis in the past. She denies liver disease or cirrhosis. She was scheduled for heart surgery. The heart surgery was canceled because the last paracentesis fluid revealed malignant cells. She presents with orthostatic symptoms. She reports nausea unable to keep anything down and decreased urine output for the past 4 days. She also reports no bowel movement for the past 5 days. She does report increased abdominal girth. She denies orthopnea or PND. She does report increased pedal edema. She has been paler than normal. She denies black or maroon stool. She denies blood in emesis. She denies fever or chills. She denies ocular, visual or auditory symptoms. She denies cough. Prior similar symptoms: Yes Recent Illness/Hospitalization: Yes - Past Medical History (1) Abdominal malignancy Status: Acute (2) Atherosclerosis of coronary artery of [place] heart without angina pectoris Status: Acute (3) Controlled diabetes mellitus type II without complication Status: Chronic (4) Depression Status: Chronic (5) Hypertension Status: Chronic (6) Obesity Status: Chronic (7) Obstructive sleep apnea Status: Chronic (8) Pulmonary fibrosis Status: Chronic Past Medical History - Allergies and Home Meds Allergies/Adverse Reactions: Allergies haloperidol [From Haldol] Allergy (Verified 03/26/19 14:23) Rash haloperidol lactate [From Haldol] Allergy (Verified 03/26/19 14:23) Rash Primary Care Physician: Toby Aleman MD [Primary Care Provider] - Prior records reviewed: Yes Surgical History: cholecystectomy, tonsillectomy Lives: Spouse/ Significant Other Smoking Status: Former smoker Alcohol: None Drugs: None - Family History Maternal Family History: Reports: Diabetes, Heart Disease Paternal Family History: Reports: - - from prostate cancer Review of Systems General: Reports: Malaise. Denies: Chills, Fever, Subjective, Sweats Eyes: Denies: Visual changes - bilaterally, Blurred Vision - bilaterally ENT: Denies: Bilateral ear pain, Rhinorrhea, Sore throat Cardiovascular: Denies: Chest pain, Palpitations Respiratory: Reports: Dyspnea, Dyspnea on exertion. Denies: Cough, Sputum, Orthopnea, Paroxysmal nocturnal dyspnea Gastrointestinal: Reports: Abdominal pain, Nausea, Vomiting, Constipation. Denies: Diarrhea, Melena, Hematochezia Genitourinary: Reports: - - Creased urine output. Denies: Dysuria, Hematuria, Frequency Musculoskeletal: Reports: Swelling. Denies: Myalgias, Arthralgias, Neck pain, Back pain, Extremity Pain, -, - Skin: Denies: Rash, Wounds Neurological: Denies: Headache, Weakness, Numbness Hematologic: Reports: Easy bruising. Denies: Easy bleeding Physical Exam Vital Signs/Narrative: Vital Signs Temp Pulse Resp BP Pulse Ox 04/18/19 15:59 97.9 F 66 18 97/53 L 95 Inital Vital Signs reviewed: Yes General: Well nourished, Well developed, Obese, No Acute Distress Head: Normocephalic, Atraumatic Eyes: Perrl, EOMI, Pale conjunctiva. Negative for: Scleral icterus ENT: No rhinorrhea, TM's clear, Dry mucous membranes Neck: Supple, Nontender, No lymphadenopathy, No JVD Cardiovascular: Regular rate, Regular rhythm, No murmurs Respiratory: No distress, CTA bilaterally, Chest nontender Abdomen: Soft, Nontender, Normal bowel sounds, - - She does have a fluid wave and shifting dullness.. Negative for: Nondistended Back: Nontender, Normal Inspection Extremities: Nontender, Edema Skin: No rash, Pallor, Trauma - Numerous bruises are noted.. Negative for: Cyanosis, Diaphoresis, Jaundice Neurological: Alert, Oriented x3, Cranial nerves II-XII grossly intact, Normal Strength, Normal Sensation, Normal DTR Psychological: Normal affect, Normal Mood Diagnostic/Tx/Re-eval - EKG Initial EKG Interpretation: Sinus Rhythm - Sinus rhythm with a ventricular rate of 57 and premature atrial complexes noted. IN interval is 182 ms. QS duration 132 ms. QT duration 442 ms. There is configuration of a right bundle branch block noted. - Medical Decision Making Patient has ascites. Most likely this is a malignant ascites. Since this is affecting patient's breathing will perform paracentesis. Because of her other symptoms will obtain CBC to assess H&H as well as white count. Since she reports renal disease with decreased and no urine output past 4 days with d ecreased p.o. intake will obtain basic metabolic panel to assess electrolytes, CO2 and renal function. Will consent patient for paracentesis. Procedures Procedure(s): Patient was consented for paracentesis. She understands risk benefits. She states she had this done before. Patient was prepped draped sterile manner. A total of 5.7 L of fluid was removed. The fluid is greenish in color. Tests were not sent since she recently had test that revealed malignancy. ED Disposition - Plan for ED Patient: Disposition: Acute Care Hospital [facility] Diagnosis: Nausea and vomiting, Severe dehydration, Acute on chronic renal failure, Anemia in chronic illness, Orthostatic hypotension, Controlled diabetes mellitus type II without complication Referrals: Toby Aleman MD [Primary Care Provider] -
[2019-04-18 17:00] LABS: Bedside Glucose 65 mg/dL (70-110)
[2019-04-18] MEDS: Dextrose 10%-Water 250 ML IV.SOLN. IV (17:05)
[2019-04-18 17:51] LABS: Absolute Lymphocyte Count 0.37 X10^3/uL (0.83-4.51); Absolute Neutrophil Count 9.7 X10^3/uL (2.0-7.7); Basophil# 0.02 X10^3/uL; Basophil% 0.2 % (0-1); Eosinophil# 0.02 X10^3/uL; Eosinophils% 0.2 % (0-5); Hematocrit 24.5 % (37-47); Hemoglobin 7.6 g/dL (12.0-15.0); Lymphocyte # 0.37 X10^3/ul (4.0); Lymphocyte % 3.4 % (19-41); Mean Corpuscular Hgb 28.9 pg (27.0-32.0); Mean Corpuscular Volume 93.2 fL (81-99); Monocyte# 0.64 X10^3/uL; Monocyte% 5.9 % (0-10); NRBC Flagged by Analyzer 0 % (0-5); Neutrophil # 9.67 X10^3/uL (2.7-7.7); Neutrophil % 88.3 % (47-70); POSITIVE DIFFERENTIAL YES; Platelet Count 490 K/mm3 (150-450); RBC Distribution Width SD 58.3 fl (35.1-43.9); Red Blood Count 2.63 M/mm3 (4.2-5.4); White Blood Count 10.9 K/mm3 (4.4-11.0)
[2019-04-18 17:52] LABS: Differential Indicated SCAN CRITERIA MET
[2019-04-18 17:59] VITALS: BP 104/80; PULSE 61; RESP 15; TEMP 36.5; O2SAT 98
[2019-04-18 18:01] LABS: International Normalized Ratio 1.2; Prothrombin Time (Protime)PT. 15.1 SECONDS (11.7-14.9)
[2019-04-18 18:08] LABS: Differential Comment SCANNED
[2019-04-18 18:17] LABS: Lactic Acid 0.9 mmol/L (0.4-1.9)
[2019-04-18 18:18] LABS: ALB/GLOB Ratio 0.5 RATIO (0.9-2.4); AST(SGOT) 24 U/L (15-37); Alanine Aminotransfer ALT/SGPT 16 U/L (13-56); Albumin, Serum 1.9 g/dL (3.2-5.0); Alkaline Phosphatase 51 U/L (45-117); BUN/Creat Ratio 22.4 RATIO (10-20); Calcium,Total 8.4 mg/dL (8.5-10.1); Chloride 88 mmol/L (98-107); Creatinine, Serum 5.01 mg/dL (0.55-1.02); EST Glomerular Filtration Rate 9 mL/min (>60); Est Glom Filt Rate - Afr Amer 11 mL/min (>60); Estimated Creatinine Clearance 10.48 ml/min; Glucose 129 mg/dL (74-106); Potassium 5.8 mmol/L (3.5-5.1); Protein, Total 5.9 g/dL (6.4-8.2); Sodium Level 119 mmol/L (136-145)
[2019-04-18 18:19] LABS: Anion Gap 12 (5-15)
[2019-04-18 18:23] LABS: Bacteria 0 SEEN /hpf (None Seen); Mucous, Urine 0 SEEN /hpf (<or=2+); Red Blood Cells-Urine 0 SEEN /hpf (0-5); Squamous Epithelial Cells - UA 0 SEEN /hpf (5-10); White Blood Cells 0 SEEN /hpf (0-5)
[2019-04-18 18:34] LABS: BUN 112 mg/dL (7-18)
[2019-04-18 18:54] LABS: Color, Urine Yellow (Yellow); Glucose, Dipstick Normal (Normal); Ketone-Dipstick 5 mg/dl (Negative); Leukocyte Esterase-Dipstick 25 /ul (Negative); Nitrite-Dipstick Negative (Negative); Occult Blood-Urine Negative /ul (Negative); Protein-Dipstick Negative (Negative); Urine Clarity Sl. Cloudy (Clear); Urine Urobilinogen Normal (Normal)
[2019-04-18 18:55] LABS: Urine Bilirubin Dipstick 1 mg/dL (Negative)
[2019-04-18 19:00] VITALS: BP 117/55; PULSE 60; RESP 14; O2SAT 92
[2019-04-18 20:04] VITALS: BMI 46.0
--- NOTE | 2019-04-18 21:30 | HP.PCM_ITS ---
Problem List (1) Abdominal malignancy Status: Acute Comment: non small cell malignant cells in recent ascit es.......favor either UGI tract or ovarian (2) Nausea and vomiting Status: Acute Qualifiers: Vomiting Intractability: intractable (3) Severe dehydration Status: Acute (4) Acute on chronic renal failure Status: Acute Qualifiers: Chronic kidney disease stage: stage 5, not on chronic dialysis (5) Anemia in chronic illness Status: Chronic Comment: Recent Hemoccult stool negative (6) Atherosclerosis of coronary artery of [place] heart without angina pectoris Status: Chronic Qualifiers: Coronary Disease-Associated Artery/Lesion type: [place] artery Qualified Code(s): I25.10 - Atherosclerotic heart disease of [place] coronary artery without angina pectoris (7) Abnormal echocardiogram Status: Chronic Comment: 40% EF, stage II diastolic dysfunction, severe hypokinesis of the lateral wall and posterior wall, possible atrial septal aneurysm (8) Hyponatremia Status: Acute (9) Obstructive sleep apnea Status: Chronic (10) Respiratory failure with hypoxia Status: Chronic Qualifiers: Chronicity: acute on chronic Qualified Code(s): J96.21 - Acute and chronic respiratory failure with hypoxia (11) Pulmonary fibrosis Status: Chronic (12) Acute kidney injury superimposed on chronic kidney disease Status: Chronic (13) Hyperkalemia Status: Acute (14) Metabolic acidosis Status: Acute (15) Obesity Status: Chronic Qualifiers: Body mass index: BMI 50.0-59.9 (16) Hypertension Status: Chronic (17) Depression Status: Chronic (18) Controlled diabetes mellitus type II without complication Status: Chronic History of Present Illness Date of Admission: 04/18/19 Chief Complaint: Shortness of breath, no urination for 4 to 5 days, intractable nausea/vomiting The patient is a very unfortunate 64 year old F with a past medical history of obesity, obstructive sleep apnea, pulmonary fibrosis ( on Ofev and Prednisone), chronic kidney disease stage V, hypertension, depression, diabetes mellitus type 2, ischemic cardiomyopathy with a 40% ejection fraction, stage II diastolic dysfunction, possible atrial septal aneurysm, triple-vessel coronary artery disease ( recently referred for CABG) who was recently discharged form [facility] on 04/04/2019. During that admission she had a paracentesis and it was + for non- small cell malignant cells that are either form the UGI tract or the ovaries. Her mother had breast cancer and the pancreas recently looked normal on a CT scan so I suspect it may be ovarian CA. She presented to the emergency room on 04/18/2019 complaining of increasing shortness of breath, intractable nausea and vomiting and stating she had not urinated since this past Sunday. She had not had a bowel movement either. She was seen in consult by Dr. Jesika Reece this morning and he told her she would not be a candidate for treatment given the s tage 5 CRF and triple vessel CAD. Vital signs at presentation to the emergency room were temperature 97.9, pulse rate 66, blood pressure 97/53, respiratory rate 18 and she was 95% saturated on a 2 L nasal cannula. White blood cell count was 10.9 with a left shift. Hemoglobin was 7.6 and platelets were 490,000. Sodium is low at 119 with a chloride of 88. Potassium is high at 58 and the BUN is 112 with a creatinine of 5.01. She underwent paracentesis in the emergency department by Dr. Hickman and 5.7 L of fluid was removed. The fluid was greenish in color. She is being admitted to the hospital with a dx of acute anuretic renal failure on chronic renal failure stage V. Past Medical History Past Medical History (Chronic Problems): Chronic Problems (Last Updated 04/03/19 @ 11:46 by Arabella Stoddard) Anemia in chronic illness (Chronic) Recent Hemoccult stool negative Atherosclerosis of coronary artery of [place] heart without angina pectoris (Chronic) Abnormal echocardiogram (Chronic) 40% EF, stage II diastolic dysfunction, severe hypokinesis of the lateral wall and posterior wall, possible atrial septal aneurysm Obstructive sleep apnea (Chronic) Respiratory failure with hypoxia (Chronic) Pulmonary fibrosis (Chronic) Acute kidney injury superimposed on chronic kidney disease (Chronic) Obesity (Chronic) Hypertension (Chronic) Depression (Chronic) Controlled diabetes mellitus type II without complication (Chronic) Medical History: Medical History (Last Reviewed 04/18/19 @ 21:44 by Tiffanie Márquez DO) Atherosclerosis of coronary artery of [place] heart without angina pectoris (Chronic) I25.10 Abnormal echocardiogram (Chronic) R93.1 40% EF, stage II diastolic dysfunction, severe hypokinesis of the lateral wall and posterior wall, possible atrial septal aneurysm Hyponatremia (Acute) E87.1 Obstructive sleep apnea (Chronic) G47.33 Respiratory failure with hypoxia (Chronic) J96.91 Pulmonary fibrosis (Chronic) J84.10 Metabolic acidosis (Acute) E87.2 Obesity (Chronic) E66.9 Hypertension (Chronic) I10 Depression (Chronic) F32.9 Controlled diabetes mellitus type II without complication (Chronic) E11.9 Allergies haloperidol [From Haldol] Allergy (Verified 03/26/19 14:23) Rash haloperidol lactate [From Haldol] Allergy (Verified 03/26/19 14:23) Rash Home Medications: Ambulatory Orders Medication Instructions Recorded Citalopram [Celexa] 40 mg PO QHS 02/05/15 Atorvastatin Calcium [Lipitor] 40 mg PO QHS 06/04/18 Cyclopentolate HCl 1 drop LEFT EYE BID 06/04/18 Gabapentin [Neurontin] 300 mg PO BID 06/04/18 Montelukast [Singulair] 10 mg PO QHS 06/04/18 Pantoprazole Sodium [Protonix] 20 mg PO DAILY 06/04/18 Prednisolone Acetate 2 drop LEFT EYE BID 06/04/18 Tetrahydrz/Dext 70/Peg 400/Pvp 1 drop RIGHT EYE BID 06/04/18 [Visine Advanced Eye Drop] Albuterol Aerosols [Ventolin 2.5 mg INHALATION Q4HWA.RT 03/26/19 Aerosols] Ergocalciferol (Vitamin D2) 50 mcg PO TH 03/26/19 [Vitamin D2] Insulin Glargine [Lantus SoloStar 40 units SUBCUT DAILY 03/26/19 Pen] Insulin Regular, Human [Novolin R] 8 - 20 unit SQ TIDCM 03/26/19 Prednisone 10 mg PO DAILY 03/26/19 Morphine Sulfate 0.25 ml PO Q4H PRN PRN 04/18/19 Prochlorperazine Maleate 10 mg PO Q6H PRN PRN 04/18/19 [Compazine] Surgical History: cholecystectomy, tonsillectomy Psychiatric History: Depression SULFUR BURNER History: No pertinent SULFUR BURNER history Lives: Spouse/ Significant Other Smoking Status: Former smoker Tobacco Use: Cigarettes Alcohol: None Drugs: None - *Family History Maternal History Items: Cancer - Mother of breast cancer, Diabetes, Heart Disease Paternal History Items: - - from prostate cancer Review of Systems Constitutional: Reports: Anorexia, Chills, Malaise, Weakness. Denies: Fever HEENT: Denies: Difficulty Swallowing, Dysphasia, Head Aches, Sore Throat Cardiovascular: Reports: Edema, Light Headedness, Orthopnea, Paroxysmal Noc. Dyspnea. Denies: Chest Pain Respiratory: Reports: Shortness of Breath, Shortness of breath at rest, Shortness of breath upon exertion. Denies: Cough Gastrointestinal: Reports: Abdominal Pain, Constipation, Nausea, Vomiting. Denies: Diarrhea, Hematemesis Genitourinary: Reports: - - She has been an uric since 04/14/2019. Denies: Dysuria Skin: Denies: Jaundice, Rash, Wounds Neurological: Denies: Confusion, Focal weakness, Seizures Psychiatric: Reports: Depression. Denies: Homicidal Ideations, Suicidal Ideations Endocrine: Reports: Change in Body Habitus - The abdomen is increasingly distended Hematologic/ Lymphatic: Reports: Easy Bruising, Easy Bleeding. Denies: Hx of blood clot VTE Information - Inpt Only VTE Present on Admission: No VTE Mechan Device Prophylaxis: SCD's VTE Pharm Prophylaxis ordered?: Yes Patient Problems: Active and Suspected Problems (Last Updated 04/03/19 @ 11:46 by Arabella Stoddard) Nausea and vomiting (Acute) Severe dehydration (Acute) Acute on chronic renal failure (Acute) - Physical Exam Vitals/I&O's: Vital Signs Temp Pulse Resp BP Pulse Ox 97.7 F L 60 14 117/55 L 92 04/18/19 17:59 04/18/19 19:00 04/18/19 19:00 04/18/19 19:00 04/18/19 19:00 Oxygen Flow Rate (L/min) 2.5 Oxygen Delivery Method Room Air Weight: 285 lb Body Mass Index (BMI) 46.0 Finger Stick Blood Glucose 70 Intake and Output for Last 24 Hours 04/16/19 04/17/19 04/18/19 23:59 23:59 23:59 Intake Total 500 / 500 Balance 500 / 500 General: Alert, Oriented x3, Cooperative HEENT: Atraumatic, PERRLA, EOMI, Normocephalic Oral: Dry Mucosa Neck: Supple, No Nodes, Trachea Midline Lungs: Diminished Cardiovascular: Regular rate, Regular Rhythm, Normal S1, Normal S2, No murmurs, No rub noted, No Gallop, - - Distant heart sounds Abdomen: Distended, Obese, - - She has pitting edema of the abdominal wall and the flanks. There are a few small pustules on the abdominal wall. She also has some bruising. Extremities: No clubbing, No cyanosis, Edema - She has 4+ pitting edema to the groin and edema of the mons pubis Skin: No rashes Neurological: Cranial nerves II-XII grossly intact, Neuro grossly intact, - - No focal neurologic deficits Psych/Mental Status: Appropriate, Anxious, Depressed Laboratory Results 04/18/19 16:52: POC Glucose 65 L 04/18/19 17:40: WBC 10.9, RBC 2.63 L, Hgb 7.6 L, Hct 24.5 L, MCV 93.2, MCH 28.9, MCHC 31.0 L, RDW Std Deviation 58.3 H, RDW Coeff of [place] 17.0 H, Plt Count 490 H , MPV 9.0, Immature Gran % (Auto) 2.000 H, Neut % (Auto) 88.3 H, Lymph % (Auto) 3.4 L, [place] % (Auto) 5.9, Eos % (Auto) 0.2, Baso % (Auto) 0.2, Absolute Neuts (auto) 9.7 H, Absolute Lymphs (auto) 0.37 L, Nucleated RBC % 0, Differential Comment SCANNED 04/18/19 17:40: PT 15.1 H, INR 1.2 04/18/19 17:40: Sodium 119 L*, Potassium 5.8 H, Chloride 88 L, Carbon Dioxide 19.0 L, Anion Gap 12, BUN 112 H*, Creatinine 5.01 H, Estim Creat Clear Calc 10.48, Est GFR (MDRD) Af Amer 11 L, Est GFR (MDRD) Non-Af 9 L, BUN/Creatinine Ratio 22.4 H, Glucose 129 H, Calcium 8.4 L, Total Bilirubin 0.20, AST 24, ALT 16, Alkaline Phosphatase 51, Total Protein 5.9 L, Albumin 1.9 L, Globulin 4.0, Albumin/Globulin Ratio 0.5 L 04/18/19 17:40: Lactic Acid 0.9 04/18/19 18:09: Urine Color Yellow, Urine Clarity Sl. Cloudy, Urine pH 5.0, Ur Specific [place] 1.020, Urine Protein Negative, Urine Glucose (UA) Normal, Urine Ketones 5 H, Urine Occult Blood Negative, Urine Nitrite Negative, Urine Bilirubin 1 H, Urine Urobilinogen Normal, Ur Leukocyte Esterase 25 H, Urine RBC 0 SEEN, Urine WBC 0 SEEN, Ur Squamous Epith Cells 0 SEEN, Urine Bacteria 0 SEEN, Urine Mucus 0 SEEN 04/18/19 18:09: Urine Creatinine Pending 04/18/19 18:09: Ur Random Sodium Pending Assessment/Plan All Active Problems (Last Updated 04/03/19 @ 11:46 by Arabella Stoddard) Abdominal malignancy (Acute) Nausea and vomiting (Acute) Severe dehydration (Acute) Acute on chronic renal failure (Acute) Hyponatremia (Acute) Hyperkalemia (Acute) Metabolic acidosis (Acute) Cocaine dependence, episodic (Resolved) Tobacco use disorder (Resolved) Impressions 1. Anuretic renal failure on chronic renal failure stage V 2. Intractable nausea and vomiting 3. 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 Her mother had breast cancer. Pancreas appeared normal on a CT scan of the abdomen recently. No masses in the stomach. 4. Anemia of chronic disease and iron deficiency 5. Severe hyponatremia 6. Hyperkalemia 7. Metabolic acidosis secondary to renal failure 8. Abdominal pain with intractable nausea and vomiting and leukocytosis with left shift-need to consider she could possibly have spontaneous bacterial peritonitis or peritonitis from recent paracentesis done on her admission earlier in March. 9. Triple-vessel coronary artery disease with ischemic cardiomyopathy and a 40% ejection fraction. CABG was recently recommended. She also has stage II diastolic dysfunction and a suspected atrial septal aneurysm 10. Diabetes mellitus type 2-recent hemoglobin A1c was less than 3.5% 11. Tobacco dependence in remission IV normal saline at 50 cc/h Send the ascitic fluid for cell count and differential and also for culture Start Zosyn 2.25 mg IV every 8 hours-adjusted for stage V renal failure Pain control Consult Dr. Jo Gutierrez to see the patient in the a.m. Consult Dr. Juarez for possible peritoneal catheter so that she may drain the ascitic fluid for comfort as needed Check lab in the a.m. Heparin and SCDs for DVT prophylaxis Pepcid 20 mg IV twice daily Compazine 5 mg IV every 4 hours as needed nausea/vomiting I discussed CODE STATUS with the patient and her but she is unable to make a decision at this point. I advised her to call her family and consider hospice. Code Visit Inpatient E&M: 02019 Init Hosp L3
[2019-04-18 21:37] LABS: Urine Sodium 16 mmol/L (Not Establ.)
[2019-04-18 23:01] VITALS: BP 151/86; PULSE 67; RESP 16; O2SAT 94
[2019-04-18] MEDS: Sodium Polystyrene Sulfonate 15 GM/60 ML UDC PO (23:27)
[2019-04-19] VITALS (25 sets, daily range): BP systolic 98–117; BP diastolic 44–94; PULSE 54–82; RESP 12–20; TEMP 36.4–36.9; O2SAT 18–100; BMI 50.5
[2019-04-19] MEDS: 0.9% Saline Lock 10 ML Syringe IV ×2 (00:25→21:25)
[2019-04-19] MEDS: 0.9% Normal Saline 1,000 ML 50 ML IV ×2 (00:25→19:49)
[2019-04-19] MEDS: Citalopram 20 MG Tablet PO (00:40)
[2019-04-19] MEDS: Montelukast 10 MG Tablet PO (00:40)
[2019-04-19] MEDS: Gabapentin 300 MG Capsule PO ×2 (00:40→11:37)
[2019-04-19] MEDS: Famotidine 200 MG/20 ML MDV 20 MG in 0.9% Normal Saline (Pres. free 8 ML 300 MG IV ×3 (00:40→21:24)
[2019-04-19 00:56] LABS: Bedside Glucose 53 mg/dL (70-110)
[2019-04-19] MEDS: Dextrose 10%-Water 250 ML 999 ML IV (01:33)
[2019-04-19 02:50] LABS: Bedside Glucose 95 mg/dL (70-110)
[2019-04-19 03:28] LABS: Erythrocyte Sedimentation Rate 61 mm/hr (0-30)
[2019-04-19 06:46] LABS: Bedside Glucose 106 mg/dL (70-110)
[2019-04-19 07:02] LABS: Hematocrit 22.3 % (37-47); Hemoglobin 7.1 g/dL (12.0-15.0); Mean Corp Hgb Conc 31.8 g/dL (32-36); Mean Corpuscular Hgb 29.6 pg (27.0-32.0); Mean Corpuscular Volume 92.9 fL (81-99); Mean Platelet Vol. 9.1 fl (6.2-12.0); Platelet Count 453 K/mm3 (150-450); RBC Distribution Width SD 58.2 fl (35.1-43.9); White Blood Count 8.8 K/mm3 (4.4-11.0)
[2019-04-19 07:32] LABS: Anion Gap 13 (5-15); BUN 111 mg/dL (7-18); BUN/Creat Ratio 23.2 RATIO (10-20); Calcium,Total 8.3 mg/dL (8.5-10.1); Chloride 88 mmol/L (98-107); Creatinine, Serum 4.79 mg/dL (0.55-1.02); EST Glomerular Filtration Rate 10 mL/min (>60); Est Glom Filt Rate - Afr Amer 12 mL/min (>60); Estimated Creatinine Clearance 10.54 ml/min; Glucose 101 mg/dL (74-106); Magnesium 1.8 mg/dL (1.6-2.6); Phosphorus 8.8 mg/dL (2.5-4.9); Potassium 5.4 mmol/L (3.5-5.1); Sodium Level 120 mmol/L (136-145)
[2019-04-19 07:41] LABS: Lipase 38 U/L (73-393)
--- NOTE | 2019-04-19 09:00 | CON.PCM_ITS ---
Problem List (1) Malignant ascites Status: Acute Reason for Consult Date of Consultation: 04/19/19 History of Present Illness: The patient is a 64 year old F here with malignant ascites and renal failure. The patient had paracentesis earlier in March for 6 L of fluid. 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 Patient had 5 L of fluid removed yesterday in the emergency room. Past Medical History Past Medical History (Chronic Problems): Chronic Problems (Last Reviewed 04/18/19 @ 21:44 by Tiffanie Márquez DO) Anemia in chronic illness (Chronic) Recent Hemoccult stool negative Atherosclerosis of coronary artery of [place] heart without angina pectoris (Ch ronic) Abnormal echocardiogram (Chronic) 40% EF, stage II diastolic dysfunction, severe hypokinesis of the lateral wall and posterior wall, possible atrial septal aneurysm Obstructive sleep apnea (Chronic) Respiratory failure with hypoxia (Chronic) Pulmonary fibrosis (Chronic) Acute kidney injury superimposed on chronic kidney disease (Chronic) Obesity (Chronic) Hypertension (Chronic) Depression (Chronic) Controlled diabetes mellitus type II without complication (Chronic) Medical History: Medical History (Last Reviewed 04/18/19 @ 21:44 by Tiffanie Márquez DO) Atherosclerosis of coronary artery of [place] heart without angina pectoris (Chronic) I25.10 Abnormal echocardiogram (Chronic) R93.1 40% EF, stage II diastolic dysfunction, severe hypokinesis of the lateral wall and posterior wall, possible atrial septal aneurysm Hyponatremia (Acute) E87.1 Obstructive sleep apnea (Chronic) G47.33 Respiratory failure with hypoxia (Chronic) J96.91 Pulmonary fibrosis (Chronic) J84.10 Metabolic acidosis (Acute) E87.2 Obesity (Chronic) E66.9 Hypertension (Chronic) I10 Depression (Chronic) F32.9 Controlled diabetes mellitus type II without complication (Chronic) E11.9 Allergies haloperidol [From Haldol] Allergy (Verified 04/19/19 00:09) Rash haloperidol lactate [From Haldol] Allergy (Verified 04/19/19 00:09) Rash Home Medications: Ambulatory Orders Medication Instructions Recorded Citalopram [Celexa] 40 mg PO QHS 02/05/15 Atorvastatin Calcium [Lipitor] 40 mg PO QHS 06/04/18 Cyclopentolate HCl 1 drop LEFT EYE BID 06/04/18 Gabapentin [Neurontin] 300 mg PO BID 06/04/18 Montelukast [Singulair] 10 mg PO QHS 06/04/18 Pantoprazole Sodium [Protonix] 20 mg PO DAILY 06/04/18 Prednisolone Acetate 2 drop LEFT EYE BID 06/04/18 Tetrahydrz/Dext 70/Peg 400/Pvp 1 drop RIGHT EYE BID 06/04/18 [Visine Advanced Eye Drop] Albuterol Aerosols [Ventolin 2.5 mg INHALATION Q4HWA.RT 03/26/19 Aerosols] Ergocalciferol (Vitamin D2) 50 mcg PO TH 03/26/19 [Vitamin D2] Insulin Glargine [Lantus SoloStar 40 units SUBCUT DAILY 03/26/19 Pen] Insulin Regular, Human [Novolin R] 8 - 20 unit SQ TIDCM 03/26/19 Prednisone 10 mg PO DAILY 03/26/19 Morphine Sulfate 0.25 ml PO Q4H PRN PRN 04/18/19 Prochlorperazine Maleate 10 mg PO Q6H PRN PRN 04/18/19 [Compazine] Surgical History: cholecystectomy, tonsillectomy Psychiatric History: Depression [employer]S History: No pertinent [employer] history Lives: Spouse/ Significant Other Smoking Status: Former smoker Tobacco Use: Cigarettes Alcohol: None Drugs: None - *Family History Maternal History Items: Cancer - Mother of breast cancer, Diabetes, Heart Disease Paternal History Items: - - from prostate cancer Review of Systems Constitutional: Denies: Anorexia, Fever Cardiovascular: Denies: Chest Pain Respiratory: Reports: Shortness of Breath Gastrointestinal: Reports: Abdominal Pain, Constipation, Nausea, Vomiting Genitourinary: Reports: - - Chronic kidney disease Neurological: Reports: Balance problems Patient Problems: Active and Suspected Problems (Last Reviewed 04/18/19 @ 21:44 by Tiffanie Márquez DO) Nausea and vomiting (Acute) Severe dehydration (Acute) Acute on chronic renal failure (Acute) Orthostatic hypotension (Acute) Malignant ascites (Acute) - Physical Exam Vitals/I&O's: Vital Signs Temp Pulse Resp BP Pulse Ox 97.5 F L 72 18 105/44 L 95 04/19/19 04:15 04/19/19 07:20 04/19/19 08:33 04/19/19 04:15 04/19/19 07:20 Oxygen Flow Rate (L/min) 3 Oxygen Delivery Method Nasal Cannula Weight: 303 lb 9.224 oz Body Mass Index (BMI) 50.5 Finger Stick Blood Glucose 70 Intake and Output for Last 24 Hours 04/17/19 04/18/19 04/19/19 23:59 23:59 23:59 Intake Total 500 / 402 142.9506 / 243.3413 Output Total 200 / 200 Balance 500 / 500 43.3413 / 43.3413 General: Alert, Oriented x3 Lungs: Short of Breath Abdomen: Distended Musculoskeletal: No Muscle Wasting Laboratory Results 04/18/19 16:52: POC Glucose 65 L 04/18/19 17:40: WBC 10.9, RBC 2.63 L, Hgb 7.6 L, Hct 24.5 L, MCV 93.2, MCH 28.9, MCHC 31.0 L, RDW Std Deviation 58.3 H, RDW Coeff of Letitia 17.0 H, Plt Count 490 H, MPV 9.0, Immature Gran % (Auto) 2.000 H, Neut % (Auto) 88.3 H, Lymph % (Auto) 3.4 L, Amador % (Auto) 5.9, Eos % (Auto) 0.2, Baso % (Auto) 0.2, Absolute Neuts (auto) 9.7 H, Absolute Lymphs (auto) 0.37 L, Nucleated RBC % 0, Differential Comment SCANNED 04/18/19 17:40: PT 15.1 H, INR 1.2 04/18/19 17:40: Sodium 119 L*, Potassium 5.8 H, Chloride 88 L, Carbon Dioxide 19.0 L, Anion Gap 12, BUN 112 H*, Creatinine 5.01 H, Estim Creat Clear Calc 10.48, Est GFR (MDRD) Af Amer 11 L, Est GFR (MDRD) Non-Af 9 L, BUN/Creatinine Ratio 22.4 H, Glucose 129 H, Calcium 8.4 L, Total Bilirubin 0.20, AST 24, ALT 16, Alkaline Phosphatase 51, Total Protein 5.9 L, Albumin 1.9 L, Globulin 4.0, Albumin/Globulin Ratio 0.5 L 04/18/19 17:40: Lactic Acid 0.9 04/18/19 17:40: ESR 61 H 04/18/19 18:09: Urine Color Yellow, Urine Clarity Sl. Cloudy, Urine pH 5.0, Ur Specific [place] 1.020, Urine Protein Negative, Urine Glucose (UA) Normal, Urine Ketones 5 H, Urine Occult Blood Negative, Urine Nitrite Negative, Urine Bilirubin 1 H, Urine Urobilinogen Normal, Ur Leukocyte Esterase 25 H, Urine RBC 0 SEEN, Urine WBC 0 SEEN, Ur Squamous Epith Cells 0 SEEN, Urine Bacteria 0 SEEN, Urine Mucus 0 SEEN 04/18/19 18:09: Urine Creatinine 269.00 04/18/19 18:09: Ur Random Sodium 16 04/19/19 00:47: POC Glucose 53 L 04/19/19 02:40: POC Glucose 95 04/19/19 06:05: C-React Prot Ext Range 179.00 H, Lipase 38 L 04/19/19 06:05: WBC 8.8, RBC 2.40 L, Hgb 7.1 L, Hct 22.3 L, MCV 92.9, MCH 29.6, MCHC 31.8 L, RDW Std Deviation 58.2 H, RDW Coeff of Letitia 17.0 H, Plt Count 453 H, MPV 9.1 04/19/19 06:05: Sodium 120 L, Potassium 5.4 H, Chloride 88 L, Carbon Dioxide 19.0 L, Anion Gap 13, BUN 111 H*, Creatinine 4.79 H, Estim Creat Clear Calc 10.54, Est GFR (MDRD) Af Amer 12 L, Est GFR (MDRD) Non-Af 10 L, BUN/Creatinine Ratio 23.2 H, Glucose 101, Calcium 8.3 L, Phosphorus 8.8 H, Magnesium 1.8 04/19/19 06:39: POC Glucose 106 Current Medications Acetaminophen (Tylenol) 650 mg PO Q6H PRN PRN PRN Reason: Pain Score 1-5/Temp > 100.7 F Albuterol Sulfate (Ventolin Aerosols) 2.5 mg INHALATION Q2H PRN PRN PRN Reason: WHEEZING Citalopram Hydrobromide (Celexa) 20 mg PO QHS [facility] Last Admin: 04/19/19 00:40 Dose: 20 mg Documented by: Cyclopentolate HCl (Cyclogyl) 1 drop LEFT EYE BID [facility] Ergocalciferol (Vitamin D) 50,000 unit PO TH [facility] Gabapentin (Neurontin) 300 mg PO BID [facility] Last Admin: 04/19/19 00:40 Dose: 300 mg Documented by: Glucagon () 1 mg IM .X1 PRN PRN Reason: Hypoglycemia Heparin Sodium (Porcine) (Heparin Na) 5,000 unit SC Q8 [facility] Last Admin: 04/19/19 05:02 Dose: Not Given Documented by: Sodium Chloride () 1,000 mls @ 50 mls/hr IV .Q20H [facility] Last Infusion: 04/19/19 01:56 Dose: 50 mls/hr Documented by: Famotidine 20 mg/ Sodium (Chloride) 10 mls @ 300 mls/hr IV Q12 [facility] Last Infusion: 04/19/19 00:53 Dose: Infused Documented by: Piperacillin Sod/Tazobactam (Sod 2.25 mg/ Sodium Chloride) 50.0113 mls @ 100 mls/hr IV Q8H [facility] Last Admin: 04/19/19 09:00 Dose: 100 mls/hr Documented by: Dextrose (Dextrose 10%-Water) 250 mls @ 999 mls/hr IV .Q16M PRN; Protocol PRN Reason: HYPOGLYCEMIA Last Infusion: 04/19/19 01:57 Dose: Infused Documented by: Sodium Chloride () 250 mls @ 15 mls/hr IV .[id number] PRN PRN Reason: Saline Flush Sodium Chloride () 250 mls @ 15 mls/hr IV .[id number] PRN PRN Reason: Additional IVPB Infusion Insulin Human Lispro (Humalog Kwikpen (Bkc)) 0 unit SC ACHS [facility]; Protocol Last Admin: 04/19/19 06:41 Dose: Not Given Documented by: Magnesium Hydroxide (Milk Of Magnesia) 30 ml PO DAILY PRN PRN PRN Reason: Constipation Montelukast Sodium (Singulair) 10 mg PO QHS [facility] Last Admin: 04/19/19 00:40 Dose: 10 mg Documented by: Morphine Sulfate () 2 mg IV Q3H PRN PRN PRN Reason: Pain Score 6-10/10 Nitroglycerin (Nitrostat) 0.4 mg SUBLINGUAL Q5M PRN PRN Reason: CARDIAC/CHEST PAIN Non-Formulary Medication (Tetrahydrz/Dext 70/Peg 400/Pvp) 1 drop RIGHT EYE BID [facility] Pantoprazole Sodium (Protonix) 20 mg PO DAILY [facility] Prednisolone Acetate (Pred Forte Eye Drops (5 Ml)) 2 drop LEFT EYE BID [facility] Prednisone () 10 mg PO DAILYCM [facility] Prochlorperazine Edisylate (Compazine Iv) 5 mg IV Q4H PRN PRN PRN Reason: Breakthrough Nausea/Vomiting Sodium Chloride () 10 - 40 ml IV UD PRN PRN Reason: SALINE FLUSH Last Admin: 04/19/19 00:25 Dose: 10 ml Documented by: Assessment/Plan All Active Problems (Last Reviewed 04/18/19 @ 21:44 by Tiffanie Márquez, ) Abdominal malignancy (Acute) Nausea and vomiting (Acute) Severe dehydration (Acute) Acute on chronic renal failure (Acute) Orthostatic hypotension (Acute) Malignant ascites (Acute) Hyponatremia (Acute) Hyperkalemia (Acute) Metabolic acidosis (Acute) Cocaine dependence, episodic (Resolved) Tobacco use disorder (Resolved) 64-year-old female with malignant ascites 1. Patient is here with a large amount of malignant ascites. Culture and cytology on the fluid tapped from ER yesterday is pending. I discussed Pleurx placement in the abdomen with her. The patient reports that she wants anything done to make her more comfortable. I discussed the risks including not limited to bleeding, infection, injury of underlying bowel. Patient understands the risks and would like Pleurx placed. I informed her that this would be done under local anesthesia in the operating room due to her heart condition. The patient understands. Ubaldo Juarez MD Pager: [facility] [address] [place] [address], [address] [place] [address] Office:
--- NOTE | 2019-04-19 10:33 | OP.PCM_ITS ---
Problem List (1) Malignant ascites Status: Acute Report of Operation Date of Procedure: 04/19/19 Pre-Operative Diagnosis: Malignant ascites Post-Operative Diagnosis: Same Surgery/Procedure Performed:: Tunneled catheter placement intraperitoneal Description of Procedure: Patient was brought back to the operating room and some light anesthesia was given. The abdomen was inspected and there appeared to be more fluid on the right side. The right abdomen was prepped and draped in usual sterile fashion. Ultrasound was used to localize a pocket of fluid and the skin was anesthetized well as the site of the counterincision. 2 incisions were made and then the introducer needle was used to gain access to the abdomen under ultrasound guidance. Clear fluid was aspirated. Guidewire was placed into the abdomen. The needle was removed and then the tunneler was used to tunnel the catheter from the counterincision to the main surgical incision. The dilator and peel- away sheath were then placed over the guidewire and the guidewire was removed. The catheter was placed through the peel-away sheath and the peel-away sheath was removed. The skin at the main incision was closed with a deep dissolvable suture that came with the kit. The silk suture was then used to suture the remainder of the catheter to the skin. The catheter was placed to suction and 3.5 L of clear straw-colored fluid were able to be removed. Patient tolerated the procedure well and dressings were placed. Grafts/Implants Used: Pleurx catheter - Admit VTE Documentation VTE Mechan Device Prophylaxis: SCD's
[2019-04-19] MEDS: predniSONE 10 MG Tablet PO (11:37)
--- NOTE | 2019-04-19 13:58 | CASEMGMT ---
Social Work Consult: Support/End of Life Informant: Hospitalist Met with patient in room. Introduced self as well as psychosocial rehabilitation counselor role. Patient agreeable to speaking with this psychosocial rehabilitation counselor. Patient stating to be aware that the doctors have given patient one week to live. Patient stating to be doing well all things considered. Patient presenting with a positive affect. Patient appearing to be drifting asleep and this psychosocial rehabilitation counselor offered to come back at a later time, patient wanting this psychosocial rehabilitation counselor to continue speaking with patient, stating I did not sleep much last night. Patient opening eyes again and continuing to speak with this psychosocial rehabilitation counselor. Patient stating to live with significant other, Ptee and plan to be getting . Patient stating to have two adult sons, Ajit and Mauro. Patient stating that Ajit lives out of state and is on the way to [place] and plans to get in tomorrow. Patient stating that Ajit is wanting patient to complete Will and Health Care Power of securities attorney. Patient also aware of recommendation for hospice services and decision of code status. Patient stating to not want to complete any documents or make decisions about code status/hospice before first talking with Ajit. Patient voicing understanding of what would happen if patient would stop breathing and aware that doctor is stating that patient may not come back after CPR. Patient remains a full code and is thinking about things. Patient stating I am hoping the good Lord saves me. This psychosocial rehabilitation counselor encouraging patient to continue thinking about end of life decisions, active support and listening provided. Patient thanking this psychosocial rehabilitation counselor. Will continue to follow as needed. Nursing staff updated on social work conversation. Luh Alcantara MSW, NASRIN
[2019-04-19] MEDS: Furosemide 100 MG/10 ML Vial 80 MG IV (14:22)
--- NOTE | 2019-04-19 14:32 | CON.PCM_ITS ---
Consultation - Renal 04/19/19 PCP/ Referring MD: Requesting physician: [] Primary care physician: Toby Aleman MD Reason for Consultation:: MARIAN on CKD stage 4 - History of Present Illness History of Present Illness: The patient is a 64 year old F [] - Allergies Allergies: Allergies haloperidol [From Haldol] Allergy (Verified 04/19/19 00:09) Rash haloperidol lactate [From Haldol] Allergy (Verified 04/19/19 00:09) Rash - Current Medications Current Medications: Current Medications Acetaminophen (Tylenol) 650 mg PO Q6H PRN PRN PRN Reason: Pain Score 1-5/Temp > 100.7 F Albuterol Sulfate (Ventolin Aerosols) 2.5 mg INHALATION Q2H PRN PRN PRN Reason: WHEEZING Citalopram Hydrobromide (Celexa) 20 mg PO QHS [facility] Last Admin: 04/19/19 00:40 Dose: 20 mg Documented by: Cyclopentolate HCl (Cyclogyl) 1 drop LEFT EYE BID [facility] Last Admin: 04/19/19 11:28 Dose: Not Given Documented by: Ergocalciferol (Vitamin D) 50,000 unit PO TH [facility] Gabapentin (Neurontin) 300 mg PO BID [facility] Last Admin: 04/19/19 11:37 Dose: 300 mg Documented by: Glucagon () 1 mg IM .X1 PRN PRN Reason: Hypoglycemia Heparin Sodium (Porcine) (Heparin Na) 5,000 unit SC Q8 [facility] Last Admin: 04/19/19 12:50 Dose: Not Given Documented by: Sodium Chloride () 1,000 mls @ 50 mls/hr IV .Q20H [facility] Last Infusion: 04/19/19 01:56 Dose: 50 mls/hr Documented by: Famotidine 20 mg/ Sodium (Chloride) 10 mls @ 300 mls/hr IV Q12 [facility] Last Infusion: 04/19/19 11:38 Dose: Infused Documented by: Piperacillin Sod/Tazobactam (Sod 2.25 mg/ Sodium Chloride) 50.0113 mls @ 100 mls/hr IV Q8H [facility] Last Infusion: 04/19/19 11:25 Dose: Infused Documented by: Dextrose (Dextrose 10%-Water) 250 mls @ 999 mls/hr IV .Q16M PRN; Protocol PRN Reason: HYPOGLYCEMIA Last Infusion: 04/19/19 01:57 Dose: Infused Documented by: Sodium Chloride () 250 mls @ 15 mls/hr IV .[id number] PRN PRN Reason: Saline Flush Sodium Chloride () 250 mls @ 15 mls/hr IV .[id number] PRN PRN Reason: Additional IVPB Infusion Insulin Human Lispro (Humalog Kwikpen (Bkc)) 0 unit SC ACHS [facility]; Protocol Last Admin: 04/19/19 11:34 Dose: Not Given Documented by: Magnesium Hydroxide (Milk Of Magnesia) 30 ml PO DAILY PRN PRN PRN Reason: Constipation Montelukast Sodium (Singulair) 10 mg PO QHS [facility] Last Admin: 04/19/19 00:40 Dose: 10 mg Documented by: Morphine Sulfate () 2 mg IV Q3H PRN PRN PRN Reason: Pain Score 6-10/10 Nitroglycerin (Nitrostat) 0.4 mg SUBLINGUAL Q5M PRN PRN Reason: CARDIAC/CHEST PAIN Pantoprazole Sodium (Protonix) 20 mg PO DAILY [facility] Last Admin: 04/19/19 11:29 Dose: Not Given Documented by: Prednisolone Acetate (Pred Forte Eye Drops (5 Ml)) 2 drop LEFT EYE BID [facility] Last Admin: 04/19/19 11:28 Dose: Not Given Documented by: [facility] Last Admin: 04/19/19 11:37 Dose: 10 mg Documented by: Prochlorperazine Edisylate (Compazine Iv) 5 mg IV Q4H PRN PRN PRN Reason: Breakthrough Nausea/Vomiting Sodium Chloride () 10 - 40 ml IV UD PRN PRN Reason: SALINE FLUSH Last Admin: 04/19/19 00:25 Dose: 10 ml Documented by: - Past Medical History Past Medical History (Chronic Problems): Chronic Problems (Last Reviewed 04/18/19 @ 21:44 by Tiffanie Márquez DO) Anemia in chronic illness (Chronic) Recent Hemoccult stool negative Atherosclerosis of coronary artery of ione heart without angina pectoris (Chronic) Abnormal echocardiogram (Chronic) 40% EF, stage II diastolic dysfunction, severe hypokinesis of the lateral wall and posterior wall, possible atrial septal aneurysm Obstructive sleep apnea (Chronic) Respiratory failure with hypoxia (Chronic) Pulmonary fibrosis (Chronic) Acute kidney injury superimposed on chronic kidney disease (Chronic) Obesity (Chronic) Hypertension (Chronic) Depression (Chronic) Controlled diabetes mellitus type II without complication (Chronic) - Past Surgical History Surgical History: cholecystectomy, tonsillectomy - Social History Smoking Status: Former smoker Alcohol: None Drugs: None - Family History Maternal History Items: Cancer - Mother of breast cancer, Diabetes, Heart Disease Paternal History Items: - - from prostate cancer Patient Problems: Active and Suspected Problems (Last Reviewed 04/18/19 @ 21:44 by Tiffanie Márquez DO) Nausea and vomiting (Acute) Severe dehydration (Acute) Acute on chronic renal failure (Acute) Orthostatic hypotension (Acute) Malignant ascites (Acute) - Physical Exam Vitals/I&O's: Vital Signs Temp Pulse Resp BP Pulse Ox 98.0 F 67 16 103/54 L 97 04/19/19 11:43 04/19/19 11:43 04/19/19 11:43 04/19/19 11:43 04/19/19 11:43 Oxygen Flow Rate (L/min) 3 Oxygen Delivery Method Nasal Cannula Weight: 137.7 kg Body Mass Index (BMI) 50.5 Finger Stick Blood Glucose 70 Intake and Output for Last 24 Hours 04/17/19 04/18/19 04/19/19 23:59 23:59 23:59 Intake Total 500 / 643 530.5684 / 543.3526 Output Total 7600 / 7600 Balance 500 / 500 -7056.6474 / -7056.6474 Laboratory Results 04/18/19 16:52: POC Glucose 65 L 04/18/19 17:40: WBC 10.9, RBC 2.63 L, Hgb 7.6 L, Hct 24.5 L, MCV 93.2, MCH 28.9, MCHC 31.0 L, RDW Std Deviation 58.3 H, RDW Coeff of Letitia 17.0 H, Plt Count 490 H, MPV 9.0, Immature Gran % (Auto) 2.000 H, Neut % (Auto) 88.3 H, Lymph % (Auto) 3.4 L, [place] % (Auto) 5.9, Eos % (Auto) 0.2, Baso % (Auto) 0.2, Absolute Neuts (auto) 9.7 H, Absolute Lymphs (auto) 0.37 L, Nucleated RBC % 0, Differential Comment SCANNED 04/18/19 17:40: PT 15.1 H, INR 1.2 04/18/19 17:40: Sodium 119 L*, Potassium 5.8 H, Chloride 88 L, Carbon Dioxide 19.0 L, Anion Gap 12, BUN 112 H*, Creatinine 5.01 H, Estim Creat Clear Calc 10.48, Est GFR (MDRD) Af Amer 11 L, Est GFR (MDRD) Non-Af 9 L, BUN/Creatinine Ratio 22.4 H, Glucose 129 H, Calcium 8.4 L, Total Bilirubin 0.20, AST 24, ALT 16, Alkaline Phosphatase 51, Total Protein 5.9 L, Albumin 1.9 L, Globulin 4.0, Albumin/Globulin Ratio 0.5 L 04/18/19 17:40: Lactic Acid 0.9 04/18/19 17:40: ESR 61 H 04/18/19 18:09: Urine Color Yellow, Urine Clarity Sl. Cloudy, Urine pH 5.0, Ur Specific [place] 1.020, Urine Protein Negative, Urine Glucose (UA) Normal, Urine Ketones 5 H, Urine Occult Blood Negative, Urine Nitrite Negative, Urine Bilirubin 1 H, Urine Urobilinogen Normal, Ur Leukocyte Esterase 25 H, Urine RBC 0 SEEN, Urine WBC 0 SEEN, Ur Squamous Epith Cells 0 SEEN, Urine Bacteria 0 SEEN, Urine Mucus 0 SEEN 04/18/19 18:09: Urine Creatinine 269.00 04/18/19 18:09: Ur Random Sodium 16 04/19/19 00:47: POC Glucose 53 L 04/19/19 02:40: POC Glucose 95 04/19/19 06:05: C-React Prot Ext Range 179.00 H, Lipase 38 L 04/19/19 06:05: WBC 8.8, RBC 2.40 L, Hgb 7.1 L, Hct 22.3 L, MCV 92.9, MCH 29.6, MCHC 31.8 L, RDW Std Deviation 58.2 H, RDW Coeff of Letitia 17.0 H, Plt Count 453 H, MPV 9.1 04/19/19 06:05: Sodium 120 L, Potassium 5.4 H, Chloride 88 L, Carbon Dioxide 19.0 L, Anion Gap 13, BUN 111 H*, Creatinine 4.79 H, Estim Creat Clear Calc 10.54, Est GFR (MDRD) Af Amer 12 L, Est GFR (MDRD) Non-Af 10 L, BUN/Creatinine Ratio 23.2 H, Glucose 101, Calcium 8.3 L, Phosphorus 8.8 H, Magnesium 1.8 04/19/19 06:39: POC Glucose 106 Current Medications Acetaminophen (Tylenol) 650 mg PO Q6H PRN PRN PRN Reason: Pain Score 1-5/Temp > 100.7 F Albuterol Sulfate (Ventolin Aerosols) 2.5 mg INHALATION Q2H PRN PRN PRN Reason: WHEEZING Citalopram Hydrobromide (Celexa) 20 mg PO QHS [facility] Last Admin: 04/19/19 00:40 Dose: 20 mg Documented by: Cyclopentolate HCl (Cyclogyl) 1 drop LEFT EYE BID [facility] Last Admin: 04/19/19 11:28 Dose: Not Given Documented by: Ergocalciferol (Vitamin D) 50,000 unit PO TH [facility] Gabapentin (Neurontin) 300 mg PO BID [facility] Last Admin: 04/19/19 11:37 Dose: 300 mg Documented by: Glucagon () 1 mg IM .X1 PRN PRN Reason: Hypoglycemia Heparin Sodium (Porcine) (Heparin Na) 5,000 unit SC Q8 [facility] Last Admin: 04/19/19 12:50 Dose: Not Given Documented by: Sodium Chloride () 1,000 mls @ 50 mls/hr IV .Q20H [facility] Last Infusion: 04/19/19 01:56 Dose: 50 mls/hr Documented by: Famotidine 20 mg/ Sodium (Chloride) 10 mls @ 300 mls/hr IV Q12 [facility] Last Infusion: 04/19/19 11:38 Dose: Infused Documented by: Piperacillin Sod/Tazobactam (Sod 2.25 mg/ Sodium Chloride) 50.0113 mls @ 100 mls/hr IV Q8H [facility] Last Infusion: 04/19/19 11:25 Dose: Infused Documented by: Dextrose (Dextrose 10%-Water) 250 mls @ 999 mls/hr IV .Q16M PRN; Protocol PRN Reason: HYPOGLYCEMIA Last Infusion: 04/19/19 01:57 Dose: Infused Documented by: Sodium Chloride () 250 mls @ 15 mls/hr IV .[id number] PRN PRN Reason: Saline Flush Sodium Chloride () 250 mls @ 15 mls/hr IV .[id number] PRN PRN Reason: Additional IVPB Infusion Insulin Human Lispro (Humalog Kwikpen (Bkc)) 0 unit SC ACHS [facility]; Protocol Last Admin: 04/19/19 11:34 Dose: Not Given Documented by: Magnesium Hydroxide (Milk Of Magnesia) 30 ml PO DAILY PRN PRN PRN Reason: Constipation Montelukast Sodium (Singulair) 10 mg PO QHS [facility] Last Admin: 04/19/19 00:40 Dose: 10 mg Documented by: Morphine Sulfate () 2 mg IV Q3H PRN PRN PRN Reason: Pain Score 6-10/10 Nitroglycerin (Nitrostat) 0.4 mg SUBLINGUAL Q5M PRN PRN Reason: CARDIAC/CHEST PAIN Pantoprazole Sodium (Protonix) 20 mg PO DAILY [facility] Last Admin: 04/19/19 11:29 Dose: Not Given Documented by: Prednisolone Acetate (Pred Forte Eye Drops (5 Ml)) 2 drop LEFT EYE BID [facility] Last Admin: 04/19/19 11:28 Dose: Not Given Documented by: [facility] () [facility] Last Admin: 04/19/19 11:37 Dose: 10 mg Documented by: Prochlorperazine Edisylate (Compazine Iv) 5 mg IV Q4H PRN PRN PRN Reason: Breakthrough Nausea/Vomiting Sodium Chloride () 10 - 40 ml IV UD PRN PRN Reason: SALINE FLUSH Last Admin: 04/19/19 00:25 Dose: 10 ml Documented by: Assessment/Plan All Active Problems (Last Reviewed 04/18/19 @ 21:44 by Tiffanie Márquez DO) Abdominal malignancy (Acute) Nausea and vomiting (Acute) Severe dehydration (Acute) Acute on chronic renal failure (Acute) Orthostatic hypotension (Acute) Malignant ascites (Acute) Hyponatremia (Acute) Hyperkalemia (Acute) Metabolic acidosis (Acute) Cocaine dependence, episodic (Resolved) Tobacco use disorder (Resolved)
[2019-04-19 14:36] LABS: Bedside Glucose 91 mg/dL (70-110)
--- NOTE | 2019-04-19 14:49 | PCM.PN.HOSP ---
Patient Problems: Active and Suspected Problems (Last Reviewed 04/18/19 @ 21:44 by Tiffanie Márquez DO) Nausea and vomiting (Acute) Severe dehydration (Acute) Acute on chronic renal failure (Acute) Orthostatic hypotension (Acute) Malignant ascites (Acute) Subjective: No issues overnight, still with some shortness of breath as well as abdominal distention Vitals/I&O's: Vital Signs Temp Pulse Resp BP Pulse Ox 98.0 F 67 16 103/54 L 97 04/19/19 11:43 04/19/19 11:43 04/19/19 11:43 04/19/19 11:43 04/19/19 11:43 Oxygen Flow Rate (L/min) 3 Oxygen Delivery Method Nasal Cannula Weight: 303 lb 9.224 oz Body Mass Index (BMI) 50.5 Finger Stick Blood Glucose 70 Intake and Output for Last 24 Hours 04/17/19 04/18/19 04/19/19 23:59 23:59 23:59 Intake Total 500 / 426 524.1245 / 543.3526 Output Total 7600 / 7600 Balance 500 / 500 -7056.6474 / -7056.6474 General: Alert, Oriented x3, Cooperative, No apparent distress HEENT: Atraumatic, PERRLA, EOMI, Normocephalic Oral: Dry Mucosa Neck: Supple, No JVD Lungs: Clear to auscultation, Normal air movement, No rhonchi, No wheeze, No rales, Diminished Cardiovascular: Regular rate, Regular Rhythm, Normal S1, Normal S2, No murmurs Abdomen: Soft, Non Tender, Non-Distended, No Hepato-splenomegaly, Obese Extremities: Capillary Refill Less than 3 Seconds, Edema - Bilateral pitting edema in her lower extremities and in her abdominal wall Skin: No rashes, Ulcer/ Wound Neurological: Neuro grossly intact, Sensory exam intact to light touch and pain Psych/Mental Status: Normal Affect, Appropriate Laboratory Results 04/18/19 16:52: POC Glucose 65 L 04/18/19 17:40: WBC 10.9, RBC 2.63 L, Hgb 7.6 L, Hct 24.5 L, MCV 93.2, MCH 28.9, MCHC 31.0 L, RDW Std Deviation 58.3 H, RDW Coeff of Letitia 17.0 H, Plt Count 490 H, MPV 9.0, Immature Gran % (Auto) 2.000 H, Neut % (Auto) 88.3 H, Lymph % (Auto) 3.4 L, [place] % (Auto) 5.9, Eos % (Auto) 0.2, Baso % (Auto) 0.2, Absolute Neuts (auto) 9.7 H, Absolute Lymphs (auto) 0.37 L, Nucleated RBC % 0, Differential Comment SCANNED 04/18/19 17:40: PT 15.1 H, INR 1.2 04/18/19 17:40: Sodium 119 L*, Potassium 5.8 H, Chloride 88 L, Carbon Dioxide 19.0 L, Anion Gap 12, BUN 112 H*, Creatinine 5.01 H, Estim Creat Clear Calc 10.48, Est GFR (MDRD) Af Amer 11 L, Est GFR (MDRD) Non-Af 9 L, BUN/Creatinine Ratio 22.4 H, Glucose 129 H, Calcium 8.4 L, Total Bilirubin 0.20, AST 24, ALT 16, Alkaline Phosphatase 51, Total Protein 5.9 L, Albumin 1.9 L, Globulin 4.0, Albumin/Globulin Ratio 0.5 L 04/18/19 17:40: Lactic Acid 0.9 04/18/19 17:40: ESR 61 H 04/18/19 18:09: Urine Color Yellow, Urine Clarity Sl. Cloudy, Urine pH 5.0, Ur Specific [place] 1.020, Urine Protein Negative, Urine Glucose (UA) Normal, Urine Ketones 5 H, Urine Occult Blood Negative, Urine Nitrite Negative, Urine Bilirubin 1 H, Urine Urobilinogen Normal, Ur Leukocyte Esterase 25 H, Urine RBC 0 SEEN, Urine WBC 0 SEEN, Ur Squamous Epith Cells 0 SEEN, Urine Bacteria 0 SEEN, Urine Mucus 0 SEEN 04/18/19 18:09: Urine Creatinine 269.00 04/18/19 18:09: Ur Random Sodium 16 04/19/19 00:47: POC Glucose 53 L 04/19/19 02:40: POC Glucose 95 04/19/19 06:05: C-React Prot Ext Range 179.00 H, Lipase 38 L 04/19/19 06:05: WBC 8.8, RBC 2.40 L, Hgb 7.1 L, Hct 22.3 L, MCV 92.9, MCH 29.6, MCHC 31.8 L, RDW Std Deviation 58.2 H, RDW Coeff of Letitia 17.0 H, Plt Count 453 H, MPV 9.1 04/19/19 06:05: Sodium 120 L, Potassium 5.4 H, Chloride 88 L, Carbon Dioxide 19.0 L, Anion Gap 13, BUN 111 H*, Creatinine 4.79 H, Estim Creat Clear Calc 10.54, Est GFR (MDRD) Af Amer 12 L, Est GFR (MDRD) Non-Af 10 L, BUN/Creatinine Ratio 23.2 H, Glucose 101, Calcium 8.3 L, Phosphorus 8.8 H, Magnesium 1.8 04/19/19 06:39: POC Glucose 106 04/19/19 11:34: POC Glucose 91 Current Medications Acetaminophen (Tylenol) 650 mg PO Q6H PRN PRN PRN Reason: Pain Score 1-5/Temp > 100.7 F Albuterol Sulfate (Ventolin Aerosols) 2.5 mg INHALATION Q2H PRN PRN PRN Reason: WHEEZING Citalopram Hydrobromide (Celexa) 20 mg PO QHS [facility] Last Admin: 04/19/19 00:40 Dose: 20 mg Documented by: Cyclopentolate HCl (Cyclogyl) 1 drop LEFT EYE BID [facility] Last Admin: 04/19/19 11:28 Dose: Not Given Documented by: Ergocalciferol (Vitamin D) 50,000 unit PO TH [facility] Gabapentin (Neurontin) 300 mg PO BID [facility] Last Admin: 04/19/19 11:37 Dose: 300 mg Documented by: Glucagon () 1 mg IM .X1 PRN PRN Reason: Hypoglycemia Heparin Sodium (Porcine) (Heparin Na) 5,000 unit SC Q8 [facility] Last Admin: 04/19/19 12:50 Dose: Not Given Documented by: Sodium Chloride () 1,000 mls @ 50 mls/hr IV .Q20H [facility] Last Infusion: 04/19/19 01:56 Dose: 50 mls/hr Documented by: Famotidine 20 mg/ Sodium (Chloride) 10 mls @ 300 mls/hr IV Q12 [facility] Last Infusion: 04/19/19 11:38 Dose: Infused Documented by: Piperacillin Sod/Tazobactam (Sod 2.25 mg/ Sodium Chloride) 50.0113 mls @ 100 mls/hr IV Q8H [facility] Last Infusion: 04/19/19 11:25 Dose: Infused Documented by: Dextrose (Dextrose 10%-Water) 250 mls @ 999 mls/hr IV .Q16M PRN; Protocol PRN Reason: HYPOGLYCEMIA Last Infusion: 04/19/19 01:57 Dose: Infused Documented by: Sodium Chloride () 250 mls @ 15 mls/hr IV .[id number] PRN PRN Reason: Saline Flush Sodium Chloride () 250 mls @ 15 mls/hr IV .[id number] PRN PRN Reason: Additional IVPB Infusion Insulin Human Lispro (Humalog Kwikpen (Bkc)) 0 unit SC ACHS [facility]; Protocol Last Admin: 04/19/19 11:34 Dose: Not Given Documented by: Magnesium Hydroxide (Milk Of Magnesia) 30 ml PO DAILY PRN PRN PRN Reason: Constipation Montelukast Sodium (Singulair) 10 mg PO QHS [facility] Last Admin: 04/19/19 00:40 Dose: 10 mg Documented by: Morphine Sulfate () 2 mg IV Q3H PRN PRN PRN Reason: Pain Score 6-10/10 Nitroglycerin (Nitrostat) 0.4 mg SUBLINGUAL Q5M PRN PRN Reason: CARDIAC/CHEST PAIN Pantoprazole Sodium (Protonix) 20 mg PO DAILY [facility] Last Admin: 04/19/19 11:29 Dose: Not Given Documented by: Prednisolone Acetate (Pred Forte Eye Drops (5 Ml)) 2 drop LEFT EYE BID [facility] Last Admin: 04/19/19 11:28 Dose: Not Given Documented [facility]: [facility] Admin: 04/19/19 11:37 Dose: 10 mg Documented by: Prochlorperazine Edisylate (Compazine Iv) 5 mg IV Q4H PRN PRN PRN Reason: Breakthrough Nausea/Vomiting Sodium Chloride () 10 - 40 ml IV UD PRN PRN Reason: SALINE FLUSH Last Admin: 04/19/19 00:25 Dose: 10 ml Documented by: STROKE Vital Signs/Narrative: Vital Signs Temp Pulse Resp BP Pulse Ox 04/19/19 11:43 98.0 F 67 16 103/54 L 97 04/19/19 11:00 98.4 F 64 16 103/54 L 92 Medical Necessity - Tobacco Use Smoking Status: Former smoker Tobacco Use: Cigarettes Assessment/Plan All Active Problems (Last Reviewed 04/18/19 @ 21:44 by Tiffanie Márquez DO) Abdominal malignancy (Acute) Nausea and vomiting (Acute) Severe dehydration (Acute) Acute on chronic renal failure (Acute) Orthostatic hypotension (Acute) Malignant ascites (Acute) Hyponatremia (Acute) Hyperkalemia (Acute) Metabolic acidosis (Acute) Cocaine dependence, episodic (Resolved) Tobacco use disorder (Resolved) 1. Nausea and vomiting with anuric renal failure with end-stage renal disease/hyperkalemia/hyponatremia/metabolic acidosis -Appreciate nephrology input -We will give her a dose of Lasix per the recommendation -Continue IV fluids -Currently not a candidate for dialysis 2. 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 CAD/chronic systolic heart failure/HTN/HLD/morbid obesity -With her lifestyle medications for her weight -She does not qualify for CABG though that this was recommended secondary to the cancer -We will continue with medical management for now, with a statin -Her blood pressures have been in the low 100s 4. DM 2 -Continue with her home insulin -Accu-Cheks AC at bedtime 5. GERD -Stable -PPI DVT: Heparin Code Visit Inpatient E&M: 52078 Subs Hosp L2
[2019-04-19 15:26] LABS: Albumin, Serum 1.5 g/dL (3.2-5.0); BUN 110 mg/dL (7-18); BUN/Creat Ratio 21.9 RATIO (10-20); Calcium,Total 8.2 mg/dL (8.5-10.1); Chloride 91 mmol/L (98-107); Creatinine, Serum 5.02 mg/dL (0.55-1.02); EST Glomerular Filtration Rate 9 mL/min (>60); Est Glom Filt Rate - Afr Amer 11 mL/min (>60); Estimated Creatinine Clearance 10.05 ml/min; Glucose 95 mg/dL (74-106); Phosphorus 8.8 mg/dL (2.5-4.9); Potassium 5.4 mmol/L (3.5-5.1); Sodium Level 122 mmol/L (136-145)
[2019-04-19] MEDS: Albuterol 2.5 MG/3 ML VIAL.NEB. INHALATION ×2 (16:25→20:48)
[2019-04-19 16:31] LABS: Bedside Glucose 127 mg/dL (70-110)
--- NOTE | 2019-04-19 17:44 | CM.UR ---
RN CM POLICE SUPERINTENDENT CM to room to meet with patient for initial transition planning/care coordination assessment. SAVANNAH PAULA introduced self and role at [facility]. Pt voices understanding and consents to assessment at this time. Pt resting in bed in no distress at this time. Pt is A/O at this time and answers all questions appropriately. Care providers, pharmacy, and demographics verified at this time. PCP: Dr Aleman Specialists: Dr Gutierrez--pantographer, Dr Olivia--die cast supervisor, Danyelle Rodriguez--WIG SALES CONSULTANT @ [facility] for acid reflux. Preferred Pharmacy: [facility] Insurance: [facility] A, B, JAVIER [employer] Prescription Benefit: Yes Living Will/HPOA: [facility], who is her Pete luz. Copies of both on file @ [facility]. LNOK: Pete Luz. 2 adult sons. Living Arrangements: Lives with her Pete luz, in a 2-story home, first floor set up. 2 steps to enter. Pt states since she has been declining, Pete has been needing to assist her with ADL's such as bathing and dressing. Pete also assists with all home mgmt tasks. She states Pete works full-time and she is home alone when he is at work. Receives Meals on Wheels 5 days/week. Transportation: States she was driving but has not been able to lately d/t being too ill/weak. Pete drives but it is difficult for him d/t working full-time. DME: Has BIPAP from [facility], Glucometer, and nebulizer. States she wears oxygen @ home @ 2.5 L/M. HHC/SNF: No history of SNF. Has been to [facility] 06/2018. Hx of [facility] but does not remember name of agency. I went into room as Dr. Gutierrez was finishing up with patient. She discussed risks and her prognosis. She recommended she consider hospice. Patient states she wants to wait until her son kadeem gets here. He is coming in from [facility] tomorrow. We discussed DNR with her. Talked about until that is decided we have to do everything we can. She was agreeable to DNRCC. So that was completed. Will discuss further plans tomorrow with family. DC Plans: TBD. Stef Yuen RN, [facility].
[2019-04-19] MEDS: prednisoLONE eye drops (5 mL) 1 DROP OPTH.BTL 2 DRP LEFT EYE (21:23)
[2019-04-19] MEDS: Heparin Injection (Vial) 5,000 UNIT/ML VIAL 5000 UNIT SC (21:23)
[2019-04-19] MEDS: Cyclopentolate 1% 2 ML Bottle 1 DRP LEFT EYE (21:23)
[2019-04-19 21:51] LABS: Bedside Glucose 126 mg/dL (70-110)
[2019-04-20] VITALS (15 sets, daily range): BP systolic 96–119; BP diastolic 51–62; PULSE 58–89; RESP 12–18; TEMP 36.4–36.7; O2SAT 91–97
[2019-04-20] MEDS: proCHLORPERazine 10 MG/2 ML Vial 5 MG IV ×2 (04:38→21:48)
[2019-04-20] MEDS: 0.9% Saline Lock 10 ML Syringe IV ×2 (04:39→04:46)
[2019-04-20] MEDS: Morphine 2 MG/ML Syringe IV ×2 (04:45→21:52)
[2019-04-20 05:06] LABS: Bedside Glucose 110 mg/dL (70-110)
[2019-04-20 06:30] LABS: Hematocrit 23.7 % (37-47); Hemoglobin 7.4 g/dL (12.0-15.0); Mean Corp Hgb Conc 31.2 g/dL (32-36); Mean Corpuscular Volume 92.9 fL (81-99); Mean Platelet Vol. 8.9 fl (6.2-12.0); Platelet Count 462 K/mm3 (150-450); RBC Distribution Width CV 16.9 % (11.6-14.6); RBC Distribution Width SD 57.2 fl (35.1-43.9); Red Blood Count 2.55 M/mm3 (4.2-5.4); White Blood Count 12.6 K/mm3 (4.4-11.0)
[2019-04-20 06:57] LABS: Albumin, Serum 1.5 g/dL (3.2-5.0); BUN 111 mg/dL (7-18); BUN/Creat Ratio 22.9 RATIO (10-20); Calcium,Total 8.2 mg/dL (8.5-10.1); Chloride 91 mmol/L (98-107); Creatinine, Serum 4.84 mg/dL (0.55-1.02); EST Glomerular Filtration Rate 10 mL/min (>60); Est Glom Filt Rate - Afr Amer 12 mL/min (>60); Estimated Creatinine Clearance 10.43 ml/min; Glucose 111 mg/dL (74-106); Phosphorus 8.5 mg/dL (2.5-4.9); Potassium 5.2 mmol/L (3.5-5.1); Sodium Level 122 mmol/L (136-145)
--- NOTE | 2019-04-20 06:58 | NURSING ---
Pts primary rn aware of pts bun of 111 at this time.
[2019-04-20] MEDS: Acetaminophen 325 MG Tablet 650 MG PO (07:02)
--- NOTE | 2019-04-20 08:08 | PCM.PN.SRG ---
Patient Problems: Active and Suspected Problems (Last Reviewed 04/18/19 @ 21:44 by Tiffanie Márquez DO) Nausea and vomiting (Acute) Severe dehydration (Acute) Acute on chronic renal failure (Acute) Orthostatic hypotension (Acute) Malignant ascites (Acute) Subjective: Patient complained of migraine headache this morning - Physical Exam Vitals/I&O's: Vital Signs Temp Pulse Resp BP Pulse Ox 97.6 F L 65 18 119/62 97 04/20/19 04:50 04/20/19 04:50 04/20/19 04:50 04/20/19 04:50 04/20/19 07:30 Oxygen Flow Rate (L/min) 3 Oxygen Delivery Method Nasal Cannula Weight: 303 lb 9.224 oz Body Mass Index (BMI) 50.5 Finger Stick Blood Glucose 70 Intake and Output for Last 24 Hours 04/18/19 04/19/19 04/20/19 23:59 23:59 23:59 Intake Total 500 / 500 1933.3639 / 1933.3639 250.0113 / 250.0113 Output Total 7800 / 8150 750 / 750 Balance 500 / 500 -5866.6361 / -6216.6361 -499.9887 / -499.9887 General: Alert, Oriented x3 Abdomen: Distended Microbiology Past 72 Hours 04/18/19 21:26 Fluid - Paracentesis (Abd) Gram Stain - Final 04/18/19 21:26 Fluid - Paracentesis (Abd) Body Fluid Culture - Preliminary No growth-Final to follow Laboratory Results 04/19/19 11:34: POC Glucose 91 04/19/19 14:50: Sodium 122 L, Potassium 5.4 H, Chloride 91 L, Carbon Dioxide 19.0 L, BUN 110 H*, Creatinine 5.02 H, Estim Creat Clear Calc 10.05, Est GFR (MDRD) Af Amer 11 L, Est GFR (MDRD) Non-Af 9 L, BUN/Creatinine Ratio 21.9 H, Glucose 95, Calcium 8.2 L, Phosphorus 8.8 H, Albumin 1.5 L 04/19/19 16:22: POC Glucose 127 H 04/19/19 21:21: POC Glucose 126 H 04/20/19 04:43: POC Glucose 110 04/20/19 06:09: WBC 12.6 H, RBC 2.55 L, Hgb 7.4 L, Hct 23.7 L, MCV 92.9, MCH 29.0, MCHC 31.2 L, RDW Std Deviation 57.2 H, RDW Coeff of Letitia 16.9 H, Plt Count 462 H, MPV 8.9 04/20/19 06:09: Sodium 122 L, Potassium 5.2 H, Chloride 91 L, Carbon Dioxide 19.0 L, BUN 111 H*, Creatinine 4.84 H, Estim Creat Clear Calc 10.43, Est GFR (MDRD) Af Amer 12 L, Est GFR (MDRD) Non-Af 10 L, BUN/Creatinine Ratio 22.9 H, Glucose 111 H, Calcium 8.2 L, Phosphorus 8.5 H, Albumin 1.5 L Current Medications Acetaminophen (Tylenol) 650 mg PO Q6H PRN PRN PRN Reason: Pain Score 1-5/Temp > 100.7 F Last Admin: 04/20/19 07:02 Dose: 650 mg Documented by: Albuterol Sulfate (Ventolin Aerosols) 2.5 mg INHALATION Q2H PRN PRN PRN Reason: WHEEZING Last Admin: 04/19/19 20:48 Dose: 2.5 mg Documented by: Citalopram Hydrobromide (Celexa) 20 mg PO QHS [facility] Last Admin: 04/19/19 20:45 Dose: Not Given Documented by: Cyclopentolate HCl (Cyclogyl) 1 drop LEFT EYE BID [facility] Last Admin: 04/19/19 21:23 Dose: 1 drop Documented by: Ergocalciferol (Vitamin D) 50,000 unit PO TH [facility] Gabapentin (Neurontin) 300 mg PO BID [facility] Last Admin: 04/19/19 20:46 Dose: Not Given Documented by: Glucagon () 1 mg IM .X1 PRN PRN Reason: Hypoglycemia Heparin Sodium (Porcine) (Heparin Na) 5,000 unit SC Q8 [facility] Last Admin: 04/20/19 04:46 Dose: Not Given Documented by: Sodium Chloride () 1,000 mls @ 50 mls/hr IV .Q20H [facility] Last Infusion: 04/20/19 00:15 Dose: 50 mls/hr Documented by: Famotidine 20 mg/ Sodium (Chloride) 10 mls @ 300 mls/hr IV Q12 [facility] Last Infusion: 04/19/19 21:26 Dose: Infused Documented by: Dextrose (Dextrose 10%-Water) 250 mls @ 999 mls/hr IV .Q16M PRN; Protocol PRN Reason: HYPOGLYCEMIA Last Infusion: 04/19/19 01:57 Dose: Infused Documented by: Sodium Chloride () 250 mls @ 15 mls/hr IV .[id number] PRN PRN Reason: Saline Flush Sodium Chloride () 250 mls @ 15 mls/hr IV .[id number] PRN PRN Reason: Additional IVPB Infusion Piperacillin Sod/Tazobactam (Sod 3.375 gm/ Sodium Chloride) 50 mls @ 12.5 mls/hr IV Q12 [facility] Insulin Human Lispro (Humalog Kwikpen (Bkc)) 0 unit SC [facility]; Protocol Last Admin: 04/20/19 04:47 Dose: Not Given Documented by: Magnesium Hydroxide (Milk Of Magnesia) 30 ml PO DAILY PRN PRN PRN Reason: Constipation Montelukast Sodium (Singulair) 10 mg PO QHS [facility] Last Admin: 04/19/19 20:46 Dose: Not Given Documented by: Morphine Sulfate () 2 mg IV Q3H PRN PRN PRN Reason: Pain Score 6-10/10 Last Admin: 04/20/19 04:45 Dose: 2 mg Documented by: Nitroglycerin (Nitrostat) 0.4 mg SUBLINGUAL Q5M PRN PRN Reason: CARDIAC/CHEST PAIN Pantoprazole Sodium (Protonix) 20 mg PO DAILY [facility] Last Admin: 04/19/19 11:29 Dose: Not Given Documented by: Prednisolone Acetate (Pred Forte Eye Drops (5 Ml)) 2 drop LEFT EYE BID [facility] Last Admin: 04/19/19 21:23 Dose: 2 drop Documented by: [facility] Last Admin: 04/19/19 11:37 Dose: 10 mg Documented by: Prochlorperazine Edisylate (Compazine Iv) 5 mg IV Q4H PRN PRN PRN Reason: Breakthrough Nausea/Vomiting Last Admin: 04/20/19 04:38 Dose: 5 mg Documented by: Sodium Chloride () 10 - 40 ml IV UD PRN PRN Reason: SALINE FLUSH Last Admin: 04/20/19 04:46 Dose: 10 ml Documented by: Medical Necessity - Tobacco Use Smoking Status: Former smoker Tobacco Use: Cigarettes Assessment/Plan All Active Problems (Last Reviewed 04/18/19 @ 21:44 by Tiffanie Márquez DO) Abdominal malignancy (Acute) Nausea and vomiting (Acute) Severe dehydration (Acute) Acute on chronic renal failure (Acute) Orthostatic hypotension (Acute) Malignant ascites (Acute) Hyponatremia (Acute) Hyperkalemia (Acute) Metabolic acidosis (Acute) Cocaine dependence, episodic (Resolved) Tobacco use disorder (Resolved) 64-year-old female with malignant ascites status post Pleurx catheter insertion 1. The patient was complaining of migraine today. I did connect the Pleurx to suction and removed 3.2 L of straw-colored clear fluid. Patient reports improvement of abdominal pain. At this rate the patient likely will need more drainage than she is able to do at home. I highly recommended hospice to her. Patient will need to be sent home with drainage supplies if she does not call hospice. I am concerned for her fluid status. If she is losing 3 L a day of ascites and not taking anything due to nausea or vomiting she is going to rapidly become dehydrated and deteriorate. Ubaldo Juarez MD Pager: [facility] [address] [place] [address], [address] [place] [address] Office:
[2019-04-20] MEDS: prednisoLONE eye drops (5 mL) 1 DROP OPTH.BTL 2 DRP LEFT EYE (09:50)
[2019-04-20] MEDS: predniSONE 10 MG Tablet PO (09:51)
[2019-04-20] MEDS: Gabapentin 300 MG Capsule PO ×2 (09:51→21:32)
[2019-04-20] MEDS: Glycerin/Hypromellose/PEG400 15 ml Bottle 1 DRP RIGHT EYE ×2 (09:51→21:31)
[2019-04-20] MEDS: Pantoprazole Sodium 20 MG Tablet PO (09:52)
[2019-04-20] MEDS: Heparin Injection (Vial) 5,000 UNIT/ML VIAL 5000 UNIT SC ×2 (14:55→21:31)
[2019-04-20 16:46] LABS: Bedside Glucose 129 mg/dL (70-110)
[2019-04-20 16:51] LABS: Bedside Glucose 110 mg/dL (70-110)
[2019-04-20] MEDS: 0.9% Normal Saline 1,000 ML 50 ML IV (16:51)
--- NOTE | 2019-04-20 18:14 | PCM.PN.HOSP ---
Patient Problems: Active and Suspected Problems (Last Reviewed 04/18/19 @ 21:44 by Tiffanie Márquez DO) Nausea and vomiting (Acute) Severe dehydration (Acute) Acute on chronic renal failure (Acute) Orthostatic hypotension (Acute) Malignant ascites (Acute) Subjective: Feels better after drainage this morning, no issues over night, feels better with O2 vis NC Vitals/I&O's: Vital Signs Temp Pulse Resp BP Pulse Ox 97.9 F 85 18 100/57 L 97 04/20/19 16:40 04/20/19 16:54 04/20/19 16:40 04/20/19 16:40 04/20/19 16:40 Oxygen Flow Rate (L/min) 3 Oxygen Delivery Method Nasal Cannula Weight: 303 lb 9.224 oz Body Mass Index (BMI) 50.5 Finger Stick Blood Glucose 70 Intake and Output for Last 24 Hours 04/18/19 04/19/19 04/20/19 23:59 23:59 23:59 Intake Total 500 / 500 1933.3639 / 1933.3639 1344.1813 / 1344.1813 Output Total 7800 / 8150 950 / 950 Balance 500 / 500 -5866.6361 / -6216.6361 394.1813 / 394.1813 General: Alert, Oriented x3, Cooperative, No apparent distress HEENT: Atraumatic, PERRLA, EOMI, Normocephalic Oral: Dry Mucosa Neck: Supple, No JVD Lungs: Clear to auscultation, Normal air movement, No rhonchi, No wheeze, No rales, Diminished Cardiovascular: Regular rate, Regular Rhythm, Normal S1, Normal S2, No murmurs Abdomen: Soft, Non Tender, [id number] to determine fluid wave given body habitus, No Hepato-splenomegaly, Obese Extremities: Capillary Refill Less than 3 Seconds, Edema - Bilateral pitting edema in her lower extremities and in her abdominal wall Skin: No rashes, Ulcer/ Wound Neurological: Neuro grossly intact, Sensory exam intact to light touch and pain Psych/Mental Status: Normal Affect, Appropriate Microbiology Past 72 Hours 04/18/19 21:26 Fluid - Paracentesis (Abd) Gram Stain - Final 04/18/19 21:26 Fluid - Paracentesis (Abd) Body Fluid Culture - Preliminary No growth-Final to follow Laboratory Results 04/19/19 21:21: POC Glucose 126 H 04/20/19 04:43: POC Glucose 110 04/20/19 06:09: WBC 12.6 H, RBC 2.55 L, Hgb 7.4 L, Hct 23.7 L, MCV 92.9, MCH 29.0, MCHC 31.2 L, RDW Std Deviation 57.2 H, RDW Coeff of Letitia 16.9 H, Plt Count 462 H, MPV 8.9 04/20/19 06:09: Sodium 122 L, Potassium 5.2 H, Chloride 91 L, Carbon Dioxide 19.0 L, BUN 111 H*, Creatinine 4.84 H, Estim Creat Clear Calc 10.43, Est GFR (MDRD) Af Amer 12 L, Est GFR (MDRD) Non-Af 10 L, BUN/Creatinine Ratio 22.9 H, Glucose 111 H, Calcium 8.2 L, Phosphorus 8.5 H, Albumin 1.5 L 04/20/19 11:39: POC Glucose 110 04/20/19 16:43: POC Glucose 129 H Current Medications Acetaminophen (Tylenol) 650 mg PO Q6H PRN PRN PRN Reason: Pain Score 1-5/Temp > 100.7 F Last Admin: 04/20/19 07:02 Dose: 650 mg Documented by: Albuterol Sulfate (Ventolin Aerosols) 2.5 mg INHALATION Q2H PRN PRN PRN Reason: WHEEZING Last Admin: 04/19/19 20:48 Dose: 2.5 mg Documented by: Citalopram Hydrobromide (Celexa) 20 mg PO QHS [facility] Last Admin: 04/19/19 20:45 Dose: Not Given Documented by: Cyclopentolate HCl (Cyclogyl) 1 drop LEFT EYE BID [facility] Last Admin: 04/20/19 09:50 Dose: Not Given Documented by: Ergocalciferol (Vitamin D) 50,000 unit PO TH [facility] Gabapentin (Neurontin) 300 mg PO BID [facility] Last Admin: 04/20/19 09:51 Dose: 300 mg Documented by: Glucagon () 1 mg IM .X1 PRN PRN Reason: Hypoglycemia Heparin Sodium (Porcine) (Heparin Na) 5,000 unit SC Q8 [facility] Last Admin: 04/20/19 14:55 Dose: 5,000 unit Documented by: Sodium Chloride () 1,000 mls @ 50 mls/hr IV .Q20H [facility] Last Admin: 04/20/19 16:51 Dose: 50 mls/hr Documented by: Dextrose (Dextrose 10%-Water) 250 mls @ 999 mls/hr IV .Q16M PRN; Protocol PRN Reason: HYPOGLYCEMIA Last Infusion: 04/19/19 01:57 Dose: Infused Documented by: Sodium Chloride () 250 mls @ 15 mls/hr IV .[id number] PRN PRN Reason: Saline Flush Sodium Chloride () 250 mls @ 15 mls/hr IV .[id number] PRN PRN Reason: Additional IVPB Infusion Piperacillin Sod/Tazobactam (Sod 3.375 gm/ Sodium Chloride) 50 mls @ 12.5 mls/hr IV Q12 [facility] Last Infusion: 04/20/19 14:13 Dose: Infused Documented by: Insulin Human Lispro (Humalog Kwikpen (Bkc)) [facility]; Protocol Last Admin: 04/20/19 16:51 Dose: Not Given Documented by: Magnesium Hydroxide (Milk Of Magnesia) 30 ml PO DAILY PRN PRN PRN Reason: Constipation Montelukast Sodium (Singulair) 10 mg PO QHS [facility] Last Admin: 04/19/19 20:46 Dose: Not Given Documented by: Morphine Sulfate () 2 mg IV Q3H PRN PRN PRN Reason: Pain Score 6-10/10 Last Admin: 04/20/19 04:45 Dose: 2 mg Documented by: Nitroglycerin (Nitrostat) 0.4 mg SUBLINGUAL Q5M PRN PRN Reason: CARDIAC/CHEST PAIN Pantoprazole Sodium (Protonix) 20 mg PO DAILY [facility] Last Admin: 04/20/19 09:52 Dose: 20 mg Documented by: Prednisolone Acetate (Pred Forte Eye Drops (5 Ml)) 2 drop LEFT EYE BID [facility] Last Admin: 04/20/19 09:50 Dose: 2 drop Documented by: Prednisone () 10 mg PO DAILYCM [facility] Last Admin: 04/20/19 09:51 Dose: 10 mg Documented by: Prochlorperazine Edisylate (Compazine Iv) 5 mg IV Q4H PRN PRN PRN Reason: Breakthrough Nausea/Vomiting Last Admin: 04/20/19 04:38 Dose: 5 mg Documented by: Sodium Chloride () 10 - 40 ml IV UD PRN PRN Reason: SALINE FLUSH Last Admin: 04/20/19 04:46 Dose: 10 ml Documented by: STROKE Vital Signs/Narrative: Vital Signs Temp Pulse Resp BP Pulse Ox 04/20/19 16:54 85 04/20/19 16:40 97.9 F 87 18 100/57 L 97 Medical Necessity - Tobacco Use Smoking Status: Former smoker Tobacco Use: Cigarettes Assessment/Plan All Active Problems (Last Reviewed 04/18/19 @ 21:44 by Tiffanie Márquez DO) Abdominal malignancy (Acute) Nausea and vomiting (Acute) Severe dehydration (Acute) Acute on chronic renal failure (Acute) Orthostatic hypotension (Acute) Malignant ascites (Acute) Hyponatremia (Acute) Hyperkalemia (Acute) Metabolic acidosis (Acute) Cocaine dependence, episodic (Resolved) Tobacco use disorder (Resolved) 1. Nausea and vomiting with anuric renal failure with end-stage renal disease/hyperkalemia/hyponatremia/metabolic acidosis -Appreciate nephrology input -Continue IV fluids at 50 -Currently not a candidate for dialysis from a cardiac standpoint 2. 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 CAD/chronic systolic heart failure/HTN/HLD/morbid obesity -With her lifestyle medications for her weight -She does not qualify for CABG, though this was recommended, secondary to the cancer -We will continue with medical management for now, with a statin -Her blood pressures have been in the low 100s 4. DM 2 -Continue with her home insulin -Accu-Cheks AC at bedtime 5. GERD -Stable -PPI I had a 30 minute conversation with the and Shivani about advance care planning, they would like to discuss their options for possible inpatient hospice DVT: Heparin Code Visit Inpatient E&M: 93621 Subs Hosp L2 Procedures: 66918 Advncd Care Plan 30 Min
[2019-04-20] MEDS: Citalopram 20 MG Tablet PO (21:31)
[2019-04-20] MEDS: Cyclopentolate 1% 2 ML Bottle 1 DRP LEFT EYE (21:31)
[2019-04-20] MEDS: Montelukast 10 MG Tablet PO (21:32)
[2019-04-20 21:46] LABS: Bedside Glucose 126 mg/dL (70-110)
[2019-04-21] VITALS (8 sets, daily range): BP systolic 101–149; BP diastolic 54–86; PULSE 81–99; RESP 12–18; TEMP 36.4; O2SAT 94–98
[2019-04-21] MEDS: proCHLORPERazine 10 MG/2 ML Vial 5 MG IV ×2 (03:59→08:01)
[2019-04-21] MEDS: Morphine 2 MG/ML Syringe IV ×2 (04:02→07:55)
[2019-04-21] MEDS: 0.9% Saline Lock 10 ML Syringe IV ×2 (05:55→07:55)
[2019-04-21] MEDS: Acetaminophen 325 MG Tablet 650 MG PO (06:52)
[2019-04-21] MEDS: Heparin Injection (Vial) 5,000 UNIT/ML VIAL 5000 UNIT SC (06:53)
[2019-04-21 07:01] LABS: Bedside Glucose 125 mg/dL (70-110)
[2019-04-21] MEDS: Albuterol 2.5 MG/3 ML VIAL.NEB. INHALATION (07:43)
--- NOTE | 2019-04-21 08:14 | PN.SURG_ITS ---
Patient Problems: Active and Suspected Problems (Last Reviewed 04/18/19 @ 21:44 by Tiffanie Márquez DO) Nausea and vomiting (Acute) Severe dehydration (Acute) Acute on chronic renal failure (Acute) Orthostatic hypotension (Acute) Malignant ascites (Acute) Subjective: Patient complaining of nausea and abdominal pain this morning - Physical Exam Vitals/I&O's: Vital Signs Temp Pulse Resp BP Pulse Ox 97.5 F L 99 16 149/86 H 94 04/21/19 04:04 04/21/19 07:43 04/21/19 07:43 04/21/19 04:04 04/21/19 07:43 Oxygen Flow Rate (L/min) 3 Oxygen Delivery Method Nasal Cannula Weight: 303 lb 9.224 oz Body Mass Index (BMI) 50.5 Finger Stick Blood Glucose 70 Intake and Output for Last 24 Hours 04/19/19 04/20/19 04/21/19 23:59 23:59 23:59 Intake Total 1933.3639 / 1933.3639 1584.1813 / 1684.1813 796.67 / 796.67 Output Total 7800 / 8150 1300 / 1725 1974 / 1974 Balance -5866.6361 / -6216.6361 284.1813 / -40.8187 -1178.33 / -1178.33 Abdomen: Distended Microbiology Past 72 Hours 04/19/19 06:05 Blood Culture (Wb) - Anticubital Left Blood Culture - Preliminary No growth in 48 hours. 04/18/19 21:26 Fluid - Paracentesis (Abd) Gram Stain - Final 04/18/19 21:26 Fluid - Paracentesis (Abd) Body Fluid Culture - Preliminary No growth-Final to follow Laboratory Results 04/20/19 11:39: POC Glucose 110 04/20/19 16:43: POC Glucose 129 H 04/20/19 21:38: POC Glucose 126 H 04/21/19 06:57: POC Glucose 125 H Current Medications Acetaminophen (Tylenol) 650 mg PO Q6H PRN PRN PRN Reason: Pain Score 1-5/Temp > 100.7 F Last Admin: 04/21/19 06:52 Dose: 650 mg Documented by: Albuterol Sulfate (Ventolin Aerosols) 2.5 mg INHALATION Q2H PRN PRN PRN Reason: WHEEZING Last Admin: 04/21/19 07:43 Dose: 2.5 mg Documented by: Citalopram Hydrobromide (Celexa) 20 mg PO QHS [facility] Last Admin: 04/20/19 21:31 Dose: 20 mg Documented by: Cyclopentolate HCl (Cyclogyl) 1 drop LEFT EYE BID [facility] Last Admin: 04/20/19 21:31 Dose: 1 drop Documented by: Ergocalciferol (Vitamin D) 50,000 unit PO TH [facility] Gabapentin (Neurontin) 300 mg PO BID [facility] Last Admin: 04/20/19 21:32 Dose: 300 mg Documented by: Glucagon () 1 mg IM .X1 PRN PRN Reason: Hypoglycemia Heparin Sodium (Porcine) (Heparin Na) 5,000 unit SC Q8 [facility] Last Admin: 04/21/19 06:53 Dose: 5,000 unit Documented by: Sodium Chloride () 1,000 mls @ 50 mls/hr IV .Q20H [facility] Last Infusion: 04/21/19 07:00 Dose: 50 mls/hr Documented by: Dextrose (Dextrose 10%-Water) 250 mls @ 999 mls/hr IV .Q16M PRN; Protocol PRN Reason: HYPOGLYCEMIA Last Infusion: 04/19/19 01:57 Dose: Infused Documented by: Sodium Chloride () 250 mls @ 15 mls/hr IV .[id number] PRN PRN Reason: Saline Flush Sodium Chloride () 250 mls @ 15 mls/hr IV .[id number] PRN PRN Reason: Additional IVPB Infusion Insulin Human Lispro (Humalog Kwikpen (Bkc)) 0 unit SC [facility]; Protocol Last Admin: 04/21/19 06:57 Dose: Not Given Documented by: Magnesium Hydroxide (Milk Of Magnesia) 30 ml PO DAILY PRN PRN PRN Reason: Constipation Montelukast Sodium (Singulair) 10 mg PO QHS [facility] Last Admin: 04/20/19 21:32 Dose: 10 mg Documented by: Morphine Sulfate () 2 mg IV Q3H PRN PRN PRN Reason: Pain Score 6-10/10 Last Admin: 04/21/19 07:55 Dose: 2 mg Documented by: Nitroglycerin (Nitrostat) 0.4 mg SUBLINGUAL Q5M PRN PRN Reason: CARDIAC/CHEST PAIN Nutritional Formula (Lactose Free) (Ensure Clear) 120 ml PO 4X/DAY [facility] Pantoprazole Sodium (Protonix) 20 mg PO DAILY [facility] Last Admin: 04/20/19 09:52 Dose: 20 mg Documented by: Prednisolone Acetate (Pred Forte Eye Drops (5 Ml)) 2 drop LEFT EYE BID [facility] Last Admin: 04/20/19 21:32 Dose: Not Given Documented by: Prednisone () 10 mg PO DAILYCM [facility] Last Admin: 04/20/19 09:51 Dose: 10 mg Documented by: Prochlorperazine Edisylate (Compazine Iv) 5 mg IV Q4H PRN PRN PRN Reason: Breakthrough Nausea/Vomiting Last Admin: 04/21/19 08:01 Dose: 5 mg Documented by: Sodium Chloride () 10 - 40 ml IV UD PRN PRN Reason: SALINE FLUSH Last Admin: 04/21/19 07:55 Dose: 10 ml Documented by: Medical Necessity - Tobacco Use Smoking Status: Former smoker Tobacco Use: Cigarettes Assessment/Plan All Active Problems (Last Reviewed 04/18/19 @ 21:44 by Tiffanie Márquez DO) Abdominal malignancy (Acute) Nausea and vomiting (Acute) Severe dehydration (Acute) Acute on chronic renal failure (Acute) Orthostatic hypotension (Acute) Malignant ascites (Acute) Hyponatremia (Acute) Hyperkalemia (Acute) Metabolic acidosis (Acute) Cocaine dependence, episodic (Resolved) Tobacco use disorder (Resolved) 64-year-old female with malignant ascites 1. I connected her tube to suction this morning and received 1300 cc of clear straw-colored fluid. Patient discussed hospice and she is meeting with them today to discuss discharge planning. Ubaldo Juarez MD Pager: [facility] [address] [place] [address], [address] [place] [address] Office:
--- NOTE | 2019-04-21 09:02 | CASEMGMT ---
NIKOLE received a call from Jag at Hospice. She said they spoke with patient's and they will be here to meet with patient and family between 9 and 930. She asked NIKOLE to pass it on to patient per the 's request. NIKOLE was not on the unit yet so NIKOLE called the U traveling secretary and notified her. Christy DE SOUZA
--- NOTE | 2019-04-21 10:01 | CASEMGMT ---
Courtney from Hospice is here to meet with patient, her , and son. Christy ALEXANDRA MSW
[2019-04-21] MEDS: Glycerin/Hypromellose/PEG400 15 ml Bottle 1 DRP RIGHT EYE (10:13)
[2019-04-21] MEDS: prednisoLONE eye drops (5 mL) 1 DROP OPTH.BTL 2 DRP LEFT EYE (10:14)
[2019-04-21] MEDS: predniSONE 10 MG Tablet PO (10:15)
[2019-04-21] MEDS: Ensure Clear 120 ML Liquid PO (10:15)
[2019-04-21] MEDS: Gabapentin 300 MG Capsule PO (10:15)
[2019-04-21] MEDS: Pantoprazole Sodium 20 MG Tablet PO (10:16)
--- NOTE | 2019-04-21 10:32 | CASEMGMT ---
Patient will be going to the Inpatient Hospice Unit today. Christy ALEXANDRA MSW
--- NOTE | 2019-04-21 10:48 | NURSING ---
Called report to Meliza NUÑEZ at the inpatient hospice unit
[2019-04-21 11:08] LABS: Anion Gap 11 (5-15); BUN 106 mg/dL (7-18); BUN/Creat Ratio 24.5 RATIO (10-20); Calcium,Total 7.9 mg/dL (8.5-10.1); Chloride 97 mmol/L (98-107); Creatinine, Serum 4.32 mg/dL (0.55-1.02); EST Glomerular Filtration Rate 11 mL/min (>60); Est Glom Filt Rate - Afr Amer 13 mL/min (>60); Estimated Creatinine Clearance 11.68 ml/min; Glucose 111 mg/dL (74-106); Potassium 5.1 mmol/L (3.5-5.1); Sodium Level 127 mmol/L (136-145)
--- NOTE | 2019-04-21 12:06 | DS.PCM_ITS ---
Discharge Date and Diagnosis Date of Admission: 04/18/19 Date of Discharge: 04/21/19 - Secondary Discharge Diagnosis Chronic Problems (Last Reviewed 04/18/19 @ 21:44 by Tiffanie Márquez DO) Anemia in chronic illness (Chronic) Recent Hemoccult stool negative Atherosclerosis of coronary artery of [place] heart without angina pectoris (Chronic) Abnormal echocardiogram (Chronic) 40% EF, stage II diastolic dysfunction, severe hypokinesis of the lateral wall and posterior wall, possible atrial septal aneurysm Obstructive sleep apnea (Chronic) Respiratory failure with hypoxia (Chronic) Pulmonary fibrosis (Chronic) Acute kidney injury superimposed on chronic kidney disease (Chronic) Obesity (Chronic) Hypertension (Chronic) Depression (Chronic) Controlled diabetes mellitus type II without complication (Chronic) Hospital Course and Treatment Imaging Results: None Consults: Nephrology Surgery Operations: - - Intraperitoneal tunneled catheter placement 04/19/2019 Procedures: None Summary of Care Provided: Per HPI: The patient is a very unfortunate 64 year old F with a past medical history of obesity, obstructive sleep apnea, pulmonary fibrosis ( on Ofev and Prednisone), chronic kidney disease stage V, hypertension, depression, diabetes mellitus type 2, ischemic cardiomyopathy with a 40% ejection fraction, stage II diastolic dysfunction, possible atrial septal aneurysm, triple-vessel coronary artery disease ( recently referred for CABG) who was recently discharged form [facility] on 04/04/2019. During that admission she had a paracentesis and it was + for non-small cell malignant cells that are either form the UGI tract or the ovaries. Her mother had breast cancer and the pancreas recently looked normal on a CT scan so I suspect it may be ovarian CA. She presented to the emergency room on 04/18/2019 complaining of increasing shortness of breath, intractable nausea and vomiting and stating she had not urinated since this past Sunday. She had not had a bowel movement either. She was seen in consult by Dr. Jesika Reece this morning and he told her she would not be a candidate for treatment given the stage 5 CRF and triple vessel CAD. Vital signs at presentation to the emergency room were temperature 97.9, pulse rate 66, blood pressure 97/53, respiratory rate 18 and she was 95% saturated on a 2 L nasal cannula. White blood cell count was 10.9 with a left shift. Hemoglobin was 7.6 and platelets were 490,000. Sodium is low at 119 with a chloride of 88. Potassium is high at 58 and the BUN is 112 with a creatinine of 5.01. She underwent paracentesis in the emergency department by Dr. Hickman and 5.7 L of fluid was removed. The fluid was greenish in color. She is being admitted to the hospital with a dx of acute anuretic renal failure on chronic renal failure stage V. Hospital Course: 1. Acute renal failure/non-small cell carcinoma in her peritoneal fluid- 64-year-old female with a history of pulmonary fibrosis, coronary artery disease which necessitated a CABG and renal failure presents to the hospital-vomiting reports abdominal distention. She had been previously admitted and had a heart cath which demonstrated the need for CABG however because of abdominal fluid she also had a paracentesis at that time which demonstrated a non-small cell carcinoma of an unknown origin. She was unable to have a CABG performed because of malignancy and given how significant her coronary artery disease was she was not a candidate for dialysis and because of her renal failure she did not qualify for chemotherapy. Therefore there is multiple discussions had her and the family and they elected to proceed with hospice care. She was transitioned to inpatient hospice today discharge. - Physical Exam Vitals/I&O's: Vital Signs Temp Pulse Resp BP Pulse Ox 97.5 F L 94 18 101/54 L 97 04/21/19 10:00 04/21/19 10:00 04/21/19 10:00 04/21/19 10:00 04/21/19 10:00 Oxygen Flow Rate (L/min) 3 Oxygen Delivery Method Nasal Cannula Weight: 303 lb 9.224 oz Body Mass Index (BMI) 50.5 Finger Stick Blood Glucose 70 Intake and Output for Last 24 Hours 04/19/19 04/20/19 04/21/19 23:59 23:59 23:59 Intake Total 1933.3639 / 1933.3639 1584.1813 / 1684.1813 1247.50 / 1247.50 Output Total 7800 / 8150 1300 / 1725 2375 / 2375 Balance -5866.6361 / -6216.6361 284.1813 / -40.8187 -1127.50 / -1127.50 General: Alert, Oriented x3, Cooperative, No apparent distress HEENT: Atraumatic, PERRLA, EOMI, Normocephalic Oral: Dry Mucosa Neck: Supple, No JVD Lungs: Clear to auscultation, Normal air movement, No rhonchi, No wheeze, No rales, Diminished Cardiovascular: Regular rate, Regular Rhythm, Normal S1, Normal S2, No murmurs Abdomen: Soft, Non Tender, Dgt-Fvwoykkxy-avnqeyvbs to determine fluid wave given body habitus, No Hepato-splenomegaly, Obese Extremities: Capillary Refill Less than 3 Seconds, Edema - Bilateral pitting edema in her lower extremities and in her abdominal wall Skin: No rashes, Ulcer/ Wound Neurological: Neuro grossly intact, Sensory exam intact to light touch and pain Psych/Mental Status: Normal Affect, Appropriate Microbiology Past 72 Hours 04/18/19 21:26 Fluid - Paracentesis (Abd) Gram Stain - Final 04/18/19 21:26 Fluid - Paracentesis (Abd) Body Fluid Culture - Preliminary No growth-Final to follow 04/18/19 21:26 Fluid - Paracentesis (Abd) Anaerobic Culture - Preliminary No growth in 48 hours. 04/19/19 06:05 Blood Culture (Wb) - Anticubital Left Blood Culture - Preliminary No growth in 48 hours. Laboratory Results 04/20/19 11:39: POC Glucose 110 04/20/19 16:43: POC Glucose 129 H 04/20/19 21:38: POC Glucose 126 H 04/21/19 06:57: POC Glucose 125 H 04/21/19 10:15: Sodium 127 L, Potassium 5.1, Chloride 97 L, Carbon Dioxide 19.0 L, Anion Gap 11, BUN 106 H*, Creatinine 4.32 H, Estim Creat Clear Calc 11.68, Est GFR (MDRD) Af Amer 13 L, Est GFR (MDRD) Non-Af 11 L, BUN/Creatinine Ratio 24.5 H, Glucose 111 H, Calcium 7.9 L Home Medications: Medications to take at Discharge Citalopram [Celexa] 40 mg PO QHS 02/05/15 Atorvastatin Calcium [Lipitor] 40 mg PO QHS 06/04/18 Cyclopentolate HCl 1 drop LEFT EYE BID 06/04/18 Gabapentin [Neurontin] 300 mg PO BID 06/04/18 Montelukast [Singulair] 10 mg PO QHS 06/04/18 Pantoprazole Sodium [Protonix] 20 mg PO DAILY 06/04/18 Prednisolone Acetate 2 drop LEFT EYE BID 06/04/18 Tetrahydrz/Dext 70/Peg 400/Pvp [Visine Advanced Eye Drop] 1 drop RIGHT EYE BID 06/04/18 Albuterol Aerosols [Ventolin Aerosols] 2.5 mg INHALATION Q4HWA.RT 03/26/19 Ergocalciferol (Vitamin D2) [Vitamin D2] 50 mcg PO TH 03/26/19 Insulin Glargine [Lantus SoloStar Pen] 40 units SUBCUT DAILY 03/26/19 Insulin Regular, Human [Novolin R] 8 - 20 unit SQ TIDCM 03/26/19 Prednisone 10 mg PO DAILY 03/26/19 Morphine Sulfate 0.25 ml PO Q4H PRN PRN 04/18/19 Prochlorperazine Maleate [Compazine] 10 mg PO Q6H PRN PRN 04/18/19 Primary Care Physician: Toby Aleman MD [Primary Care Provider] - Disposition: Hospice Medical Facility Minutes spent on discharge:: 35 Patient Condition:: Stable Medical Necessity - Tobacco Use Smoking Status: Former smoker Tobacco Use: Cigarettes Meaningful Use Info Meaningful Use Diagnoses (Choose all that apply): None applicable Code Visit Inpatient E&M: 80402 Disch Hosp
--- NOTE | 2019-04-21 12:06 | PCM.PN.BLA ---
Progress Note labs reviewed. pt transferred to hospice. Will sign off. DW hospitalist STROKE Vital Signs/Narrative: Vital Signs Temp Pulse Resp BP Pulse Ox 04/21/19 10:00 97.5 F L 94 18 101/54 L 97
== END 2019-04-21 11:20 | disposition hospice, inpatient (51) | DRG 755 ==
LOC: ED 22:50 → PCU 22:54
PROVIDERS: Internal Medicine Nephrology; Surgery; Admitting Provider Internal Medicine; Emergency Provider Emergency Medicine; PCP Internal Medicine; Visit Provider Family Medicine
PROC: 0W9G30Z Drainage of Peritoneal Cavity with Drainage Device, Percutaneous Approach (ICD-10-PCS; CPT 32550; principal; 2019-04-19 10:00)
DX: C56.9 Malignant neoplasm of unspecified ovary (principal); E87.1 Hypo-osmolality and hyponatremia; R18.0 Malignant ascites; I50.22 Chronic systolic (congestive) heart failure; I13.2 Hypertensive heart and chronic kidney disease with heart failure and with stage 5 chronic kidney disease, or end stage renal disease; Z68.43 Body mass index [BMI] 50.0-59.9, adult; N17.9 Acute kidney failure, unspecified; N18.5 Chronic kidney disease, stage 5; E87.2 Acidosis; E87.5 Hyperkalemia; I25.5 Ischemic cardiomyopathy; I25.10 Atherosclerotic heart disease of native coronary artery without angina pectoris; E11.22 Type 2 diabetes mellitus with diabetic chronic kidney disease; D50.9 Iron deficiency anemia, unspecified; D63.8 Anemia in other chronic diseases classified elsewhere; E78.5 Hyperlipidemia, unspecified; E66.01 Morbid (severe) obesity due to excess calories; Z51.5 Encounter for palliative care; J84.10 Pulmonary fibrosis, unspecified; F32.9 Major depressive disorder, single episode, unspecified; G47.33 Obstructive sleep apnea (adult) (pediatric); Z87.891 Personal history of nicotine dependence; Z79.4 Long term (current) use of insulin; G43.909 Migraine, unspecified, not intractable, without status migrainosus
CPT/HCPCS: 36415; 80048; 80053; 80069; 81001; 82570; 82962; 83605; 83690; 83735; 84100; 84300; 85025; 85027; 85610; 85652; 86140; 87040; 87070; 87075; 87205; 93005; 94002; 94003; 94640; 99251; 99284; J7030; J7040; A4216; C1729; G0463; J1940; J3490